=== PATIENT | female | born 1940 | race Caucasian/White ===

== ENCOUNTER → 2018-01-27 | Outpatient (CLI) | payer OTHER, BC ==
[~2018-01-27] MED LIST: ASPI325T39 PO; CALC500C3 PO; CLOTCRE33 TOP; INSU1INJ SC; LISI-461 PO; METO25TA56 PO; MULT-506 PO; PRLSR20 PO; SIMV20TA2 PO
--- NOTE | 2018-01-27 13:01 | DIAGNOSTIC IMAGING REPORT ---
CHEST 2 VIEWS ROUTINE CLINICAL HISTORY: Preoperative chest COMPARISON STUDY: 02/01/2008 FINDINGS: The cardiac and mediastinal contours are normal. There is no evidence of focal pulmonary consolidation. There is no evidence of failure. No pleural effusions are visualized.[ IMPRESSION: No active disease in the chest. Electronically signed by: Mark Draper M.D. 01/27/2018 1:00 PM Dictated Date/Time: 01/27/2018 12:59 PM
[2018-01-27 14:51] LABS: BASO % 0.6 %; BASO ABS # 0.04 K/uL (0-0.2); EOS % 3.4 %; EOS ABS # 0.23 K/uL (0-0.5); HEMATOCRIT 33.8 % (37-47); HEMOGLOBIN 11.1 g/dL (12.0-16.0); IG# 0.02 K/uL (0.00-0.02); LYMPH % 27.8 %; MEAN CELL VOLUME 95.8 fL (80-100); MEAN CORPUSCULAR HEMOGLOBIN 31.4 pg (25-34); MEAN CORPUSCULAR HGB CONC 32.8 g/dl (32-36); MEAN PLATELET VOLUME 10.7 fL (7.4-10.4); MONO % 7.5 %; MONO ABS # 0.51 K/uL (0.11-0.59); NEUT % 60.4 %; NEUT ABS # 4.14 K/uL (1.4-6.5); PLATELET COUNT 193 K/uL (130-400); RED CELL DISTRIBUTION WIDTH CV 13.8 % (11.5-14.5); RED CELL DISTRIBUTION WIDTH SD 47.4 fL (36.4-46.3); WHITE BLOOD COUNT 6.84 K/uL (4.8-10.8)
[2018-01-27 14:59] LABS: BLOOD UREA NITROGEN 51 mg/dl (7-18); CALCIUM 8.1 mg/dl (8.5-10.1); CARBON DIOXIDE 20 mmol/L (21-32); GLUCOSE 250 mg/dl (70-99); POTASSIUM 5.3 mmol/L (3.5-5.1); PTT PATIENT 26.2 SECONDS (21.0-31.0); SODIUM 136 mmol/L (136-145)
== END | disposition home or self-care (01) ==
LOC: C.CPL 11:48
PROVIDERS: ATTEND Surgery Vascular Surgery
DX: Z01.818 Encounter for other preprocedural examination (principal)

== ENCOUNTER 2019-02-12 14:39 | Inpatient (IN) ==
[2019-02-12 15:43] LABS: Mean Corpuscular Hgb Conc 33.4 g/dL (32-36)
--- NOTE | 2019-02-12 15:47 | XRay Report ---
XR chest 1V portable CLINICAL HISTORY: Chest pain status post trauma COMPARISON STUDY: 05/30/2018 FINDINGS: The heart is enlarged. No pneumothorax is visualized. There are right lower lobe airspace o pacities suspicious for pneumonia or pulmonary contusion given the history of trauma. The study is so mewhat limited from a technical standpoint due to the patient's large body habitus. There is mild fred tral vascular prominence without evidence of overt failure. There are old posterior back changes invo lving the left humerus.[ IMPRESSION: 1. Cardiomegaly with mild vascular prominence 2. No pneumothorax identified 3. Right lower lobe airspace opacities, pneumonia versus pulmonary contusion. Electronically signed by: Mark Draper M.D. 02/12/2019 3:45 PM
[2019-02-12 15:52] LABS: Hematocrit (blood only) 41.9 % (37-47); Mean Corpuscular Volume 91.1 fL (80-100); RDW Coefficient of Variation 22.2 % (11.5-14.5); RDW Standard Deviation 73.4 fL (36.4-46.3); White Blood Count 7.64 K/uL (4.8-10.8)
[2019-02-12 16:37] LABS: Mean Platelet Volume 11.3 fL (7.4-10.4); Platelet Count 131 K/uL (130-400)
[2019-02-12 16:39] LABS: Anisocytosis Present; Basophils # (auto) 0.03 K/uL (0-0.2); Basophils % (auto) 0.4 %; Eosinophils # (auto) 0.03 K/uL (0-0.5); Eosinophils % (auto) 0.4 %; Immature Granulocytes # (auto) 0.02 K/uL (0.00-0.02); Immature Granulocytes % (auto) 0.3 %; Lymphocytes # (auto) 0.93 K/uL (1.2-3.4); Lymphocytes % (auto) 12.2 %; Monocytes % (auto) 9.2 %; Neutrophils # (auto) 5.93 K/uL (1.4-6.5); Neutrophils % (auto) 77.5 %; Platelet Estimate Normal (Normal); Polychromasia 1+
--- NOTE | 2019-02-12 16:52 | CT Scan Report ---
CT SCAN OF THE BRAIN WITHOUT IV CONTRAST CLINICAL HISTORY: Falls. COMPARISON STUDY: No priors. TECHNIQUE: Unenhanced axial CT scan of the brain is performed from the vertex to the skull base. A do se lowering technique was utilized adhering to the principles of ALARA. CT DOSE: 788.63 mGycm FINDINGS: Brain parenchyma: There are age-related involutional changes noting moderate subcortical and periven tricular microangiopathic change. There is no hemorrhage, mass effect, or evidence of acute territori al ischemia by CT criteria. There is a small chronic lacunar infarct in the left thalamus. Daniel-white matter differentiation is preserved. No extra-axial fluid collection is seen. Ventricles, sulci, cisterns: Prominent secondary to involutional change. Intracranial vasculature: There is atherosclerotic calcification of the cavernous carotid arteries. Calvarium: The skeletal structures are osteopenic. There is no depressed calvarial fracture. Sinuses and mastoids: Trace mucosal thickening is noted in the sphenoid sinuses. The remaining visual ized paranasal sinuses are clear. The mastoid air cells are well pneumatized. Orbits: The bony orbits are grossly intact. There are bilateral ocular lens implants. IMPRESSION: There is no hemorrhage, mass effect, or evidence of acute territorial ischemia by CT henry nicholson. Electronically signed by: Lenni Cohen M.D. 02/12/2019 4:50 PM
[2019-02-12 17:23] LABS: Albumin Level 3.6 gm/dl (3.4-5.0); BUN Creatinine Ratio 20.7 (10-20); Calcium 9.4 mg/dl (8.5-10.1); Creatinine Clr Calc Pharmacy 17.8 ml/min; Est GFR (African American) 18.2; Est GFR (Non-African American) 15.7; Magnesium 2.9 mg/dl (1.8-2.4); Potassium 3.7 mmol/L (3.5-5.1)
[2019-02-12 17:33] LABS: Albumin Globulin Ratio 0.9 (0.9-2); Bilirubin,Total 3.1 mg/dl (0.2-1); Globulin 3.9 gm/dl (2.5-4.0); Total Protein 7.5 gm/dl (6.4-8.2); Troponin I 0.053 ng/ml (0-0.045)
[2019-02-12] MEDS ORDERED: cefTRIAXone SODIUM 2,000 MG/70 ML BAG IV STA (17:37)
--- NOTE | 2019-02-12 17:50 | Emergency Department Note ---
Entered by Dorota Rock acting as a scribe for Tiera Love DO History of Present Illness General Chief complaint: Fall Time Seen by Provider: 02/12/19 15:26 History of Present Illness Provider complaint: fall Onset (ago): hour(s) 1 Severity: similar to prior episodes (of a fall yesterday and the day before) Pain Consistency: + other (episode) Quality: + other (fall) Associated symptoms: + denies other symptoms (LOC, dizziness, pain, urine changes, bowel changes, recent medicine changes, head trauma) and + other (legs weak and gave out, landed on buttocks, uses 2 canes to walk and was using them when she fell, normal blood sugars, freezing, lower back back that is exacerbated with movement and twisting); no fever/chills The patient is an 78 year old female who presents to the ED with complaints of an episode of a fall that occurred 1 hour ago. The patient states that she was walking into her kitchen when her legs felt weak and gave out. The patient states that she had similar episodes of a fall yesterday and the day before. The patient states that she landed on her buttocks following each fall. No head injury. The patient states that the falls from the past few days have been solely because of leg weakness and she denies dizziness and LOC. Denies any other trauma or pain since the falls. States she would call her son and he would come pick her up if she could not get up on her own. The patient states that she uses 2 canes to walk and was using them when she fell. Patient does live alone. The patient states that her blood sugar levels have been okay and have ranged in the 80s and 90s. When reminded that her blood sugar was very low when EMS checked her out today, she believes this could have contributed to her falls and weakness. She is complaining of being very cold currently. The patient states that she also has lower back pain that is exacerbated with movement and twisting. The patient denies fever, pain, urine changes, bowel changes, recent medicine changes, and head trauma. Patient states she has bad kidneys and sees Dr. Stewart. States does not go to dialysis but that her kidney doctor had a fistula put in her left arm for when she eventually does need to start dialysis. Home Medications Home Medications Medication Instructions Recorded Confirmed Type calcium carbonate 600 mg PO DIRECTED PRN 05/30/18 02/12/19 History clotrimazole-betamethasone 1 applic TOPICAL BID PRN 05/30/18 02/12/19 History multivitamin 1 tab PO QAM 05/30/18 02/12/19 History omeprazole 20 mg PO QAM PRN 05/30/18 02/12/19 History simvastatin 20 mg PO PM 05/30/18 02/12/19 History Humulin 70/30 U-100 Insulin 20 unit SUBCUT QPM #0 ml 06/04/18 02/12/19 Rx torsemide 20 mg PO QAM 06/26/18 02/12/19 History Humulin 70/30 U-100 Insulin 25 unit SUBCUT QAM 02/12/19 02/12/19 History benzonatate 100 mg PO TID PRN 02/12/19 02/12/19 History levothyroxine 50 mcg PO DAILYBB 02/12/19 02/12/19 History metoprolol succinate 25 mg PO QAM 02/12/19 02/12/19 History Allergies Allergy/AdvReac Type Severity Reaction Status Date / Time Aminoglycosides Allergy Intermediate Rash Verified 02/12/19 16:08 neomycin Allergy Intermediate Rash Verified 02/12/19 16:08 polymyxin B Allergy Intermediate Rash Verified 02/12/19 16:08 iodine Allergy Unknown Unknown Verified 02/12/19 16:08 promethazine Allergy Unknown Unknown Verified 02/12/19 16:08 aminophylline Allergy Unknown Verified 02/12/19 16:08 fish derived Allergy Anaphylaxis Verified 02/12/19 16:08 nystatin Allergy Unknown Verified 02/12/19 16:08 adhesive AdvReac Mild Tape - Verified 02/12/19 16:08 bumps alcohol AdvReac BUMPS ON Verified 02/12/19 16:08 SKIN W/ ETOH WIPES Past Med/Surg History Medical History Hyperlipidemia (Chronic) Peripheral neuropathy (Chronic) GERD (gastroesophageal reflux disease) (Chronic) controlled Osteoarthritis (Chronic) Chronic back pain (Chronic) Anemia (Chronic) LBBB (left bundle branch block) (Chronic) chronic Breast cancer (Resolved) 2010 radiation. +chemo per PCP records Morbid obesity (Chronic) Hypothyroidism (Chronic) Diastolic CHF (Chronic) Non-ischemic cardiomyopathy (Chronic) Diabetes mellitus type 2, insulin dependent (Chronic) LBBB (left bundle branch block) (Chronic) CKD (chronic kidney disease) stage 4, GFR 15-29 ml/min (Chronic) Surgical History AVF (arteriovenous fistula) (Chronic) History of cataract surgery (Chronic) History of appendectomy (Chronic) Hx of lumpectomy (Chronic) Right breast Family History Father Diabetes Social History Preferred Language: Niuean Communication Ability: Effective Visual Impairment: No Limitations Hearing Ability: Hard of Hearing Clinical Faculty Required: No Beliefs That Will Affect Care: None marital status: Current Living Situation: Alone Other Information That Helps Us Care for You: No Feels Safe at Home: Yes Safety Concerns: Feels Safe At This Time Smoking Status: Never smoker Second Hand Exposure: No ; Hx Alcohol Use: No Hx Substance Use: No Review of Systems See HPI for pertinent positives & negatives. and A total of 10 systems reviewed and were otherwise negative Physical Exam Vital Signs Vital Signs - 24 hr 02/12/19 14:45 02/12/19 16:58 02/12/19 18:17 Temperature 36.5 C Temperature Source Oral Sepsis Recent Fever Within 48 Hours No Sepsis New/Unexplained Change in Mental Status No Sepsis Action Taken by Nursing No Action Required Pulse Rate 79 Pulse Rate [Left Finger] 77 80 Pulse Rhythm [Left Finger] Regular Pulse Strength [Left Finger] Normal Respiratory Rate 18 20 18 Respiratory Effort / Characteristics Non-Labored Spontaneous Respiratory Depth Normal Respiratory Pattern Regular Blood Pressure 150/71 H Blood Pressure [Right Arm] 145/74 H 155/85 H Blood Pressure Mean 97 Blood Pressure Mean [Right Arm] 97 108 Blood Pressure Position [Right Arm] Lying Pulse Oximetry 97 95 94 Oxygen Delivery Method Room Air Room Air Room Air GENERAL: alert, well appearing, well nourished, no distress, non-toxic, and hard of hearing. EYE EXAM: normal conjunctiva, PERRL and EOM's grossly intact OROPHARYNX: no exudate, no erythema, lips, buccal mucosa, and tongue normal and mucous membranes are moist NECK: supple, no nuchal rigidity, no adenopathy, non-tender LUNGS: Clear to auscultation. Normal chest wall mechanics, no w/r/r HEART: no murmurs, S1 normal and S2 normal ABDOMEN: abdomen soft, non-tender, normo-active bowel sounds, no masses, no rebound or guarding. BACK: Back is symmetrical on inspection and there is no deformity, no midline tenderness, no CVA tenderness. SKIN: no rashes and no bruising UPPER EXTREMITIES: Fistula present in proximal left upper extremity, otherwise upper extremities are grossly normal. Normal distal pulses bilaterally. Mild ecchymosis noted to the proximal right upper extremity, which patient states is from her son helping to lift her up. LOWER EXTREMITIES: 1+ lower extremity edema bilaterally. No evidence of trauma. Full range of motion. NEURO EXAM: Normal sensorium, cranial nerves II-XII grossly intact, normal speech, no gross weakness of arms, no gross weakness of legs. Course 1529: Past medical records reviewed. The patient was evaluated in room C4. A complete history and physical exam was performed. 4: I reevaluated the patient and she appears to be comfortable. I updated her on the test results and plan for admission. The patient verbally agrees and understands. Vital signs stable. Patient did tolerate p.o. 1851: I discussed the patient's case with ARY San. She will evaluate the patient for further management. Consultations Consultation #1: I discussed the patient's case with ARY San. She will evaluate the patient for further management. Time: 18:51 Administered Medications Acetaminophen (Tylenol) 650 mg PO Q4H PRN PRN Reason: pain/fever Stop: 03/14/19 20:45 Last Admin: 02/12/19 21:15 Dose: 650 mg Documented by: [id number] Discontinued Medications Azithromycin (Zithromax) 500 mg PO NOW ONE Stop: 02/12/19 17:53 Last Admin: 02/12/19 18:12 Dose: 500 mg Documented by: [id number] Ceftriaxone Sodium (Rocephin) 2,000 mg in 70 mls @ 140 mls/hr IV NOW STA Stop: 02/12/19 18:06 Last Infusion: 02/12/19 19:12 Dose: 0 mls/hr Documented by: [id number] Admin: 02/12/19 18:12 Dose: 140 mls/hr Documented by: [id number] Medical Decision Making Differential Diagnosis Differential diagnosis: Etiologies such as fracture, cervical/vertebral injury, dislocation, intra- abdominal process, pneumothorax, intrathoracic trauma, intracranial injury, soft tissue injury, neurologic process, as well as other traumatic pathologies were entertained. Medical Records Attestation: I reviewed the patient's medical records. Home Medications Current Medication List: was personally reviewed by me Laboratory Data Attestation: I reviewed the patient's lab results. Result diagrams: 02/12/19 15:03 02/12/19 15:03 Lab Results 02/12/19 02/12/19 02/12/19 Range/Units 14:46 15:03 15:03 WBC 7.64 (4.8-10.8) K/uL RBC 4.60 (4.2-5.4) M/uL Hgb 14.0 (12.0-16.0) g/dL Hct 41.9 (37-47) % MCV 91.1 (80-100) fL MCH 30.4 (25-34) pg MCHC 33.4 (32-36) g/dL RDW Std Deviation 73.4 H (36.4-46.3) fL RDW Coeff of Archana 22.2 H (11.5-14.5) % Plt Count 131 (130-400) K/uL MPV 11.3 H (7.4-10.4) fL Immature Gran % (Auto) 0.3 % Neut % (Auto) 77.5 % Lymph % (Auto) 12.2 % Richardson % (Auto) 9.2 % Eos % (Auto) 0.4 % Baso % (Auto) 0.4 % Immature Gran # (Auto) 0.02 (0.00-0.02) K/uL Neut # (Auto) 5.93 (1.4-6.5) K/uL Lymph # (Auto) 0.93 L (1.2-3.4) K/uL Richardson # (Auto) 0.70 H (0.11-0.59) K/uL Eos # (Auto) 0.03 (0-0.5) K/uL Baso # (Auto) 0.03 (0-0.2) K/uL Platelet Estimate Normal (Normal) Polychromasia 1+ Anisocytosis Present Sodium 140 (136-145) mmol/L Potassium 3.7 (3.5-5.1) mmol/L Chloride 102 (98-107) mmol/L Carbon Dioxide 29 (21-32) mmol/L Anion Gap 9.0 (3-11) BUN 57 H (7-18) mg/dl Creatinine 2.74 H (0.6-1.2) mg/dl Est Cr Clr Drug Dosing 17.8 ml/min Est GFR ( Amer) 18.2 Est GFR (Non-Af Amer) 15.7 BUN/Creatinine Ratio 20.7 H (10-20) Glucose 53 L* (70-99) mg/dl POC Glucose 43 L* (70-99) Calcium 9.4 (8.5-10.1) mg/dl Magnesium 2.9 H (1.8-2.4) mg/dl Total Bilirubin 3.1 H (0.2-1) mg/dl AST 61 H (15-37) U/L ALT 41 (12-78) U/L Alkaline Phosphatase 182 H (45-117) U/L Total Creatine Kinase (26-192) U/L Troponin I 0.053 H* (0-0.045) ng/ml Total Protein 7.5 (6.4-8.2) gm/dl Albumin 3.6 (3.4-5.0) gm/dl Globulin 3.9 (2.5-4.0) gm/dl Albumin/Globulin Ratio 0.9 (0.9-2) Lipase 47 L (73-393) U/L Procalcitonin (0-0.5) ng/ml TSH 18.200 H (0.300-4.500) uIu/ml 02/12/19 02/12/19 02/12/19 Range/Units 15:03 15:03 15:38 WBC (4.8-10.8) K/uL RBC (4.2-5.4) M/uL Hgb (12.0-16.0) g/dL Hct (37-47) % MCV (80-100) fL MCH (25-34) pg MCHC (32-36) g/dL RDW Std Deviation (36.4-46.3) fL RDW Coeff of Archana (11.5-14.5) % Plt Count (130-400) K/uL MPV (7.4-10.4) fL Immature Gran % (Auto) % Neut % (Auto) % Lymph % (Auto) % Richardson % (Auto) % Eos % (Auto) % Baso % (Auto) % Immature Gran # (Auto) (0.00-0.02) K/uL Neut # (Auto) (1.4-6.5) K/uL Lymph # (Auto) (1.2-3.4) K/uL Richardson # (Auto) (0.11-0.59) K/uL Eos # (Auto) (0-0.5) K/uL Baso # (Auto) (0-0.2) K/uL Platelet Estimate (Normal) Polychromasia Anisocytosis Sodium (136-145) mmol/L Potassium (3.5-5.1) mmol/L Chloride (98-107) mmol/L Carbon Dioxide (21-32) mmol/L Anion Gap (3-11) BUN (7-18) mg/dl Creatinine (0.6-1.2) mg/dl Est Cr Clr Drug Dosing ml/min Est GFR ( Amer) Est GFR (Non-Af Amer) BUN/Creatinine Ratio (10-20) Glucose (70-99) mg/dl POC Glucose (70-99) Calcium (8.5-10.1) mg/dl Magnesium (1.8-2.4) mg/dl Total Bilirubin (0.2-1) mg/dl AST (15-37) U/L ALT (12-78) U/L Alkaline Phosphatase (45-117) U/L Total Creatine Kinase 305 H (26-192) U/L Troponin I Cancelled (0-0.045) ng/ml Total Protein (6.4-8.2) gm/dl Albumin (3.4-5.0) gm/dl Globulin (2.5-4.0) gm/dl Albumin/Globulin Ratio (0.9-2) Lipase (73-393) U/L Procalcitonin 0.15 (0-0.5) ng/ml TSH Cancelled (0.300-4.500) uIu/ml 02/12/19 Range/Units 17:03 WBC (4.8-10.8) K/uL RBC (4.2-5.4) M/uL Hgb (12.0-16.0) g/dL Hct (37-47) % MCV (80-100) fL MCH (25-34) pg MCHC (32-36) g/dL RDW Std Deviation (36.4-46.3) fL RDW Coeff of Archana (11.5-14.5) % Plt Count (130-400) K/uL MPV (7.4-10.4) fL Immature Gran % (Auto) % Neut % (Auto) % Lymph % (Auto) % Richardson % (Auto) % Eos % (Auto) % Baso % (Auto) % Immature Gran # (Auto) (0.00-0.02) K/uL Neut # (Auto) (1.4-6.5) K/uL Lymph # (Auto) (1.2-3.4) K/uL Richardson # (Auto) (0.11-0.59) K/uL Eos # (Auto) (0-0.5) K/uL Baso # (Auto) (0-0.2) K/uL Platelet Estimate (Normal) Polychromasia Anisocytosis Sodium (136-145) mmol/L Potassium (3.5-5.1) mmol/L Chloride (98-107) mmol/L Carbon Dioxide (21-32) mmol/L Anion Gap (3-11) BUN (7-18) mg/dl Creatinine (0.6-1.2) mg/dl Est Cr Clr Drug Dosing ml/min Est GFR ( Amer) Est GFR (Non-Af Amer) BUN/Creatinine Ratio (10-20) Glucose (70-99) mg/dl POC Glucose 61 L* (70-99) Calcium (8.5-10.1) mg/dl Magnesium (1.8-2.4) mg/dl Total Bilirubin (0.2-1) mg/dl AST (15-37) U/L ALT (12-78) U/L Alkaline Phosphatase (45-117) U/L Total Creatine Kinase (26-192) U/L Troponin I (0-0.045) ng/ml Total Protein (6.4-8.2) gm/dl Albumin (3.4-5.0) gm/dl Globulin (2.5-4.0) gm/dl Albumin/Globulin Ratio (0.9-2) Lipase (73-393) U/L Procalcitonin (0-0.5) ng/ml TSH (0.300-4.500) uIu/ml Imaging Data Radiologist's Impression: Radiology results as stated below per my review and the radiologist's interpretation: CT SCAN OF THE BRAIN WITHOUT IV CONTRAST CLINICAL HISTORY: Falls. COMPARISON STUDY: No priors. TECHNIQUE: Unenhanced axial CT scan of the brain is performed from the vertex to the skull base. A dose lowering technique was utilized adhering to the principles of ALARA. CT DOSE: 788.63 mGycm FINDINGS: Brain parenchyma: There are age-related involutional changes noting moderate subcortical and periventricular microangiopathic change. There is no hemorrhage, mass effect, or evidence of acute territorial ischemia by CT criteria. There is a small chronic lacunar infarct in the left thalamus. Daniel-white matter differentiation is preserved. No extra-axial fluid collection is seen. Ventricles, sulci, cisterns: Prominent secondary to involutional change. Intracranial vasculature: There is atherosclerotic calcification of the cavernous carotid arteries. Calvarium: The skeletal structures are osteopenic. There is no depressed calvarial fracture. Sinuses and mastoids: Trace mucosal thickening is noted in the sphenoid sinuses. The remaining visualized paranasal sinuses are clear. The mastoid air cells are well pneumatized. Orbits: The bony orbits are grossly intact. There are bilateral ocular lens implants. IMPRESSION: There is no hemorrhage, mass effect, or evidence of acute territorial ischemia by CT criteria. Electronically signed by: Lenin Cohen M.D. 02/12/2019 4:50 PM XR chest 1V portable CLINICAL HISTORY: Chest pain status post trauma COMPARISON STUDY: 05/30/2018 FINDINGS: The heart is enlarged. No pneumothorax is visualized. There are right lower lobe airspace opacities suspicious for pneumonia or pulmonary contusion given the history of trauma. The study is somewhat limited from a technical standpoint due to the patient's large body habitus. There is mild central vascular prominence without evidence of overt failure. There are old posterior back changes involving the left humerus.[ IMPRESSION: 1. Cardiomegaly with mild vascular prominence 2. No pneumothorax identified 3. Right lower lobe airspace opacities, pneumonia versus pulmonary contusion. Electronically signed by: Mark Draper M.D. 02/12/2019 3:45 PM ECG Data Attestation: I personally reviewed and interpreted this ECG as follows: Indication: other (electrolyte abnormality) Rate (beats per minute): 77 Rhythm: normal sinus Findings: + other (right axis deviation, poor quality tracing) and + RBBB; no ST elevation Blood Pressure Blood Pressure Findings: Elevated blood pressure Blood Pressure Disposition: further management by hospitalist ESPERANZA Narrative Curb 65 score moderate risk Patient presents with concerning story for 3 successive days of weakness and falls. It is unclear if hypoglycemia which seems to been the trigger today was the etiology previous 2 days as well. Concern given that patient lives alone and already uses to ambulatory assist devices. No evidence of trauma patient had no complaints of pain. I would low suspicion for occult traumatic injury. Patient's other labs showed an elevated troponin and BNP which are likely chronic given her chronic kidney disease. Patient had no complaints of chest pain and normal EKG. Chest x-ray did not reveal acute pulmonary edema. Patient's creatinine today is improved compared to the last several and consistent with her prior baseline. CT of the patient's head was reassuring, chest x-ray read by radiology showing possible pneumonia. Patient does admit to recent cough, denies fevers or chills, nasal congestion or sore throat. Patient does have mild tachypnea with conversation. Patient denies any prior pulmonary history but states she has had pneumonia twice previously. No recent admission to suggest healthcare associated pneumonia. Patient started on Rocephin and azithromycin as a precaution. Patient hemodynamically stable, not requiring oxygen. Patient's Accu-Chek initially low, however did not improve following oral intake. Patient continued to subjectively states she was cold, likely this is due to prior hypoglycemia. I do not suspect chills or rigors more suggestive of evolving bacteremia/sepsis. Case discussed with hospitalist team for additional evaluation and management. Impression & Plan Hypoglycemia, Weakness, Fall, Pneumonia Discharge Plan Visit Data *Final* Discharge Date/Time: 02/12/19 19:54 Chief Complaint: Fall ED Provider: Tiera Love Discharge Problem: Hypoglycemia, Weakness, Fall, Pneumonia Patient Disposition: Admitted As Inpatient Condition: Fair Discharge Instructions Interventions: ED Discharge Assessment Last Done: 02/12/19 19:54 The scribe's documentation has been prepared under my direction and personally reviewed by me in its entirety. I confirm that the note above accurately reflects all work, treatment, procedures, and medical decision making performed by me.
[2019-02-12] MEDS ORDERED: AZITHROMYCIN 250 MG TAB PO ONE (17:52)
--- NOTE | 2019-02-12 19:27 | History & Physical Report ---
Date of Service February 12, 2019 Assessment & Plan (1) Hypoglycemia: (2) Frequent falls: -admit to med/surg -patient presenting from home with 3 falls over the past 3 days -In the ED, found to be significantly hypoglycemic which improved after snacks given in the ED -Hypoglycemia likely secondary to poor p.o. intake in combination with continued use of insulin at home -Hold insulin, check BSG every 4 hours -Head CT negative for acute findings -Does not appear to have any other injuries -PT/OT, case management evaluations (3) Abnormal chest xray: -CXR shows right lower lobe opacity -Does not seem to be pneumonia, afebrile without leukocytosis and no significant pulmonary symptoms -Received IV ceftriaxone and azithromycin in the ED -Will check procalcitonin and resume antibiotics if positive (4) Diabetes mellitus type 2, insulin dependent: -Hgb A1c 7.4 12/2018 -Holding insulin as above (5) Hypothyroidism: -TSH as an outpatient was 44 on 01/23 and patient was started levothyroxine at that time -TSH was checked in the ED today and found to be 18.2 -would not adjust levothyroxine at this time given it has been less than 6 weeks since initiation (6) Diastolic CHF: (7) Non-ischemic cardiomyopathy: -Appears euvolemic -Continue home dose of torsemide (8) CKD (chronic kidney disease) stage 4, GFR 15-29 ml/min: -Renal functions at baseline -Continue monitor -Does have fistula placed for potential dialysis (9) Hyperlipidemia: -Continue statin (10) DVT prophylaxis: -SQ heparin History of Present Illness Chief Complaint: Falls Primary Care Provider: Hima Tanner DO 78 year old female who presents to the ED for frequent falls. Patient reports she has had 3 falls over the past 3 days. She has laid on the floor for up to 14 hours waiting for her son to come check on her. Today, patient's son called EMS for the patient to be evaluated. Patient reports that when she falls, her knees give out from under her. She denies any associated lightheadedness, dizziness, syncope, or chest pain. With these falls and being on the floor, she has been unable to eat and drink much. She did decrease her insulin doses at home. She has had a couple episodes of vomiting. No hematemesis or coffee ground emesis. She denies abdominal pain. She has chronic loose stools which are unchanged from baseline. She also has a chronic cough for the past several months which is unchanged as well. Cough is mostly non productive. She sometimes has exertional shortness of breath which is unchanged from baseline as well. No fevers or chills. She denies urinary symptoms. In the ED, patient is found to be hypoglycemic at 43, this improved after some snacks were given. CXR also questions a RLL pneumonia. Patient is afebrile, no leukocytosis. She was given IV ceftriaxone and IV azithromycin. Allergies Allergy/AdvReac Type Severity Reaction Status Date / Time Aminoglycosides Allergy Intermediate Rash Verified 02/12/19 16:08 neomycin Allergy Intermediate Rash Verified 02/12/19 16:08 polymyxin B Allergy Intermediate Rash Verified 02/12/19 16:08 iodine Allergy Unknown Unknown Verified 02/12/19 16:08 promethazine Allergy Unknown Unknown Verified 02/12/19 16:08 aminophylline Allergy Unknown Verified 02/12/19 16:08 fish derived Allergy Anaphylaxis Verified 02/12/19 16:08 nystatin Allergy Unknown Verified 02/12/19 16:08 adhesive AdvReac Mild Tape - Verified 02/12/19 16:08 bumps alcohol AdvReac BUMPS ON Verified 02/12/19 16:08 SKIN W/ ETOH WIPES Home Medications Home Medications Medication Instructions Recorded Confirmed Type calcium carbonate 600 mg PO DIRECTED PRN 05/30/18 02/12/19 History clotrimazole-betamethasone 1 applic TOPICAL BID PRN 05/30/18 02/12/19 History multivitamin 1 tab PO QAM 05/30/18 02/12/19 History omeprazole 20 mg PO QAM PRN 05/30/18 02/12/19 History simvastatin 20 mg PO PM 05/30/18 02/12/19 History Humulin 70/30 U-100 Insulin 20 unit SUBCUT QPM #0 ml 06/04/18 02/12/19 Rx torsemide 20 mg PO QAM 06/26/18 02/12/19 History Humulin 70/30 U-100 Insulin 25 unit SUBCUT QAM 02/12/19 02/12/19 History benzonatate 100 mg PO TID PRN 02/12/19 02/12/19 History levothyroxine 50 mcg PO DAILYBB 02/12/19 02/12/19 History metoprolol succinate 25 mg PO QAM 02/12/19 02/12/19 History Past Med/Surg History Medical History Hyperlipidemia (Chronic) Peripheral neuropathy (Chronic) GERD (gastroesophageal reflux disease) (Chronic) controlled Osteoarthritis (Chronic) Chronic back pain (Chronic) Anemia (Chronic) LBBB (left bundle branch block) (Chronic) chronic Breast cancer (Resolved) 2010 radiation. +chemo per PCP records Morbid obesity (Chronic) Hypothyroidism (Chronic) Diastolic CHF (Chronic) Non-ischemic cardiomyopathy (Chronic) Diabetes mellitus type 2, insulin dependent (Chronic) LBBB (left bundle branch block) (Chronic) CKD (chronic kidney disease) stage 4, GFR 15-29 ml/min (Chronic) Surgical History AVF (arteriovenous fistula) (Chronic) History of cataract surgery (Chronic) History of appendectomy (Chronic) Hx of lumpectomy (Chronic) Right breast Family History Father Diabetes Social History Preferred Language: Slovak Communication Ability: Effective Visual Impairment: No Limitations Hearing Ability: Hard of Hearing Animal Tech Required: No Beliefs That Will Affect Care: None marital status: Current Living Situation: Alone Other Information That Helps Us Care for You: No Feels Safe at Home: Yes Safety Concerns: Feels Safe At This Time Smoking Status: Never smoker Second Hand Exposure: No ; Hx Alcohol Use: No Hx Substance Use: No Review of Systems Review of Systems: ROS per HPI, all other systems reviewed and negative Physical Exam Physical Exam: please refer to Dr. Gracia's addendum for physical exam Results & Data Vital Signs (Past 12 Hours) Vital Signs Temp Pulse Pulse Resp BP BP Pulse Ox 02/12/19 18:17 80 18 155/85 H 94 02/12/19 16:58 77 20 145/74 H 95 02/12/19 14:45 36.5 C 79 18 150/71 H 97 Laboratory Results Short CBC 02/12/19 Range/Units 15:03 WBC 7.64 (4.8-10.8) K/uL Hgb 14.0 (12.0-16.0) g/dL Hct 41.9 (37-47) % Plt Count 131 (130-400) K/uL BMP 02/12/19 15:03 Sodium 140 Potassium 3.7 Chloride 102 Carbon Dioxide 29 BUN 57 H Creatinine 2.74 H Glucose 53 L* Calcium 9.4 Cardiac Enzymes 02/12/19 02/12/19 Range/Units 15:03 15:03 Troponin I 0.053 H* Cancelled (0-0.045) ng/ml Liver Function 02/12/19 Range/Units 15:03 Total Bilirubin 3.1 H (0.2-1) mg/dl AST 61 H (15-37) U/L ALT 41 (12-78) U/L Alkaline Phosphatase 182 H (45-117) U/L Albumin 3.6 (3.4-5.0) gm/dl Diagnostic Findings CXR IMPRESSION: 1. Cardiomegaly with mild vascular prominence 2. No pneumothorax identified 3. Right lower lobe airspace opacities, pneumonia versus pulmonary contusion. HEAD CT IMPRESSION: There is no hemorrhage, mass effect, or evidence of acute territorial ischemia by CT criteria. Code Status & VTE Plan VTE Prophylaxis Plan VTE Prophylaxis will be ordered: Yes Supervising Physician Co-Signing Physician Notes Patient was evaluated on 02/12/2019. History obtained with Melissa MCALLISTER. Physical exam performed by me. Patient is an 78 year old woman with history of DM2, Hypothyroidism, chronic systolic heart failure (EF 35-40% as of 05/2018), CKD 4 who presented to the hospital after multiple falls. Falls appear to be mechanical, not associated with dizziness, palpitations,loss of consciousness or seizure like activity. She reported that her knee gave out and she could not get up. Has ambulatory dysfunction at baseline, uses aides such as walker and cane. One of the falls had her on the ground for a couple of hours before son arrrived as patient lives with son who works, hence she is alone by herself most of the day. Also reported difficulty having reaching the food items sometimes. Has had poor feeding for the past couple of days but has continued to take her insulin regimen. Requires some assistance with some ADLs. Other history as detailed above. On exam, she was unkempt, obese, conversation carried out in high tones due to chronic hearing deficit and had some bruises on her knees. She was not pale, anicteric, EOMI and PERRL. Respiratory: Normal respiratory effort, no respiratory distress, lungs clear to auscultation, Cardiovascular: Pulse is RRR. normal S1 and S2; no murmurs no pedal edema Chest (Breasts): Chest: normal inspection of chest Gastrointestinal (Abdomen): Abdomen is soft, non-tender to palpation, no guarding, no palpable hepatosplenomegaly, normal bowel sounds Musculoskeletal: Power is about 4/5 in all extremities Skin: Bruises on knees. Difficulty turning patient to assess for pressure sores due to body habitus Neurologic: Alert and oriented x 3, No focal weakness, sensation grossly intact Psychiatric: Alert and oriented x 3, euthymic affect Lymphatic: No cervical lymphadenopathy Patient was hypoglycemic with a blood glucose of 43 on admission.CXR did show RLL opacity. CT head were unremarkable . Patient had mechanical fall likely due to poor oral intake with hypoglycemia with insulin use. Will hold all insulin for now until hypoglycemia resolves. Continue dextrose, po intake and regular glucose monitoring. Get PT/OT eval for management of ambulatory dysfunction. Due to patient's inability to care for herself at home, i discussed possible of placement. Patient reports that her son takes care of her well but not always available due to work. She will ask him to come to discuss with the team about that. Case management consult for this and other resources patient will need for optimal management. CXR showed RLL opacity. No reported fevers,chills. Cough is chronic and unchanged. No leukocytosis. Will monitor off antibiotics for now and repeat CXR For hypothyroidism: Was recently started on levothyroxine for elevated TSH. TSH still elevated but improving from lab 3 weeks ago. Will not adjust dose for now. Has chronic systolic heart failure: Continue diuretics, heart healthy low salt diet
[2019-02-12] MEDS ORDERED: ACETAMINOPHEN 325 MG TAB PO PRN (20:46)
[2019-02-12] MEDS: DEXTROSE 5% 500 ML IV SCH (21:54)
[2019-02-12] MEDS: SIMVASTATIN 20 MG TAB PO SCH (22:06)
[2019-02-12] MEDS: HEPARIN SOD 5,000 UNIT/0.5 ML VIAL SQ SCH (22:08)
[2019-02-13] MEDS: CARBOHYDRATES FOR HYPOGLYCEMIA PO PRN ×3 (00:05→00:43)
[2019-02-13] MEDS ORDERED: GLUCOSE 40% GEL 15 GM TUBE PO PRN ×2 (01:15→11:44)
[2019-02-13] MEDS ORDERED: GLUCAGON FOR INJ 1 MG VIAL IM PRN (01:15)
[2019-02-13] MEDS ORDERED: GLUCOSE 10 TABS/TUBE PO PRN ×2 (01:15→11:44)
[2019-02-13] MEDS ORDERED: DEXTROSE 50% 50 ML SYRINGE IV PRN ×2 (01:15→11:44)
[2019-02-13] MEDS: HEPARIN SOD 5,000 UNIT/0.5 ML VIAL SQ SCH ×3 (05:43→21:44)
[2019-02-13] MEDS: LEVOTHYROXINE SODIUM 50 MCG TABLET PO SCH (05:44)
[2019-02-13] MEDS: DEXTROSE 5% 500 ML IV SCH (05:45)
[2019-02-13 07:01] LABS: Hematocrit (blood only) 38.4 % (37-47); Hemoglobin 12.2 g/dL (12.0-16.0); Mean Corpuscular Hgb Conc 31.8 g/dL (32-36); Mean Corpuscular Volume 91.6 fL (80-100); Mean Platelet Volume 10.2 fL (7.4-10.4); Platelet Count 151 K/uL (130-400); RDW Coefficient of Variation 22.2 % (11.5-14.5); RDW Standard Deviation 74.5 fL (36.4-46.3); Red Blood Count 4.19 M/uL (4.2-5.4); White Blood Count 5.39 K/uL (4.8-10.8)
[2019-02-13 07:31] LABS: Basophils # (auto) 0.04 K/uL (0-0.2); Basophils % (auto) 0.7 %; Eosinophils # (auto) 0.26 K/uL (0-0.5); Eosinophils % (auto) 4.6 %; Immature Granulocytes # (auto) 0.01 K/uL (0.00-0.02); Immature Granulocytes % (auto) 0.2 %; Lymphocytes # (auto) 1.15 K/uL (1.2-3.4); Lymphocytes % (auto) 20.4 %; Monocytes # (auto) 0.74 K/uL (0.11-0.59); Monocytes % (auto) 13.1 %; Neutrophils # (auto) 3.45 K/uL (1.4-6.5)
[2019-02-13 07:38] LABS: BUN Creatinine Ratio 22.2 (10-20); Creatinine Clr Calc Pharmacy 19.1 ml/min; Est GFR (Non-African American) 16.4; Potassium 3.9 mmol/L (3.5-5.1)
[2019-02-13] MEDS: MULTIVITAMIN TAB PO SCH (07:39)
[2019-02-13] MEDS: METOPROLOL SUCC 25MG EXT REL TAB PO SCH (07:39)
[2019-02-13 08:01] LABS: Anisocytosis Present; Echinocytes 1+; Polychromasia 1+
[2019-02-13] MEDS ORDERED: TORSEMIDE 10 MG TAB PO SCH (09:00)
--- NOTE | 2019-02-13 11:41 | Hospitalist Progress Note ---
Date of Service February 13, 2019 Assessment & Plan (1) Hypoglycemia: (2) Frequent falls: Obesity with BMI of 44.5 in an adult -This is an 78 year female who lives in a 2nd story home with recurrent falls; as per patient' s son and power of real estate attorney Anthony at bedside ([phone]), each time this happens the patient may be on the floor for several hours. The episode preceeding the hospital admission when the patient was on the floor for hours and no reported loss of consciousness -Head CT negative for acute findings -patient was found also to be hypoglycemic and hypoglycemia did not improve significantly with oral intake throughout 02/12/19 admission day and patient started on IV fluids with D5 -admitted to hospital to monitor closely of serum glucose and for evaluation of ambulation -patient may need to have discharge insulin dosing adjusted; as per patient's son, the patient has not been using her home glucose machine properly -physical and occupational therapy evaluations are pending; patient had expressed that she would not want to be placed in nursing facility or physical therapy facility but patient's son will help her with making decisions depending on patient's ambulatory status -minimally elevated creatinine kinase which downtrended with IV fluids, encourage oral hydration as tolerated (3) Abnormal chest xray: -admission CXR showed right lower lobe opacity -Does not seem to be pneumonia, afebrile without leukocytosis and no significant pulmonary symptoms; patient Received IV ceftriaxone and azithromycin in the ED; procalcitonin was normal and no further respiratory antibiotics indicated at this time (4) Diabetes mellitus type 2, insulin dependent: Type 2 diabetes mellitus with mcc use of insulin and complications of hypoglycemia -Hgb A1c 7.4 12/2018 -home dose insulin of twice a day Humalin 70/30 has not been started on the hospital stay to avoid hypoglycemia -patient was given D5 water on admission, D5 water stopped on 02/13/19 and will monitor serum/POC glucose closely -sliding scale insulin is only to be given if serum glucose above 200 for now (5) Hypothyroidism: -TSH as an outpatient was 44 on 01/23/19 and patient was started levothyroxine at that time -TSH was checked in the ED on 02/12/19 admission TSH had trended down to 18.2 -continuing current home dose levothyroxine 50 mcg daily without adjustment because it has been less than 6 weeks since initiation of levothyroxine and TSH is downtrending (6) Diastolic CHF: (7) Non-ischemic cardiomyopathy: -resumed home dose of torsemide 20 mg daily as patient received IV fluids during this hospital stay (8) CKD (chronic kidney disease) stage 4, GFR 15-29 ml/min: -have left arm fistula placed for potential dialysis -however, patient was never initiated on dialysis as of yet -follows with nephrology [facility] -patient makes urine -left arm restricted from blood draws (9) Hyperlipidemia: -Continue statin (10) DVT prophylaxis: -SQ heparin Anthony is son and power of real estate attorney [phone] Subjective Patient seen and examined sitting in the chair. she is hard of hearing and it is necessary to speak slowly and loudly. Anthony is son and power of real estate attorney [phone] and at bedside. Patient denies acute pain - no chest pain, no abdomen pain, no leg or back pain. denies shortness of breath. denies dizziness or lightheadedness. patient is awaiting physical and occupational evaluations and for close monitoring of blood sugars. Physical Exam Constitutional: + obese and comfortable Eyes: PERRL, conjunctivae normal, anicteric sclerae EOM intact bilaterally ENMT: external ear and nose normal, oropharynx normal Ears: + hearing impairment (need to speak slowly and loudly to patient) Respiratory: normal respiratory effort, lungs clear to auscultation Cardiovascular: Rate/Rhythm: regular rate and regular rhythm Gastrointestinal (Abdomen): normal bowel sounds, soft, nontender, no hepatosplenomegaly Musculoskeletal: Head/Neck/Chest: normocephalic and head atraumatic Extremities: + upper extremity abnormal to inspection (left arm fistula) Neurologic: PERRL, EOMI, accommodation nl, no face palsy, no dysarthria Psychiatric: Orientation: alert, oriented x 3 and cooperative Results & Data Vital Signs (Past 12 Hours) Vital Signs Temp Pulse Resp BP Pulse Ox 02/13/19 07:23 36.5 C 72 18 124/78 93
[2019-02-13] MEDS ORDERED: GLUCAGON FOR INJ 1 MG VIAL SQ PRN (11:44)
[2019-02-13] MEDS ORDERED: CARBOHYDRATES FOR HYPOGLYCEMIA PO PRN (11:44)
[2019-02-13] MEDS ORDERED: TORSEMIDE 10 MG TAB PO STA (11:52)
[2019-02-13] MEDS: INSULIN ASPART 100 UNITS/ML 3 ML PEN SC SCH ×3 (12:18→21:45)
[2019-02-13] MEDS: SIMVASTATIN 20 MG TAB PO SCH (21:44)
[2019-02-14] MEDS: HEPARIN SOD 5,000 UNIT/0.5 ML VIAL SQ SCH ×2 (05:43→12:47)
[2019-02-14] MEDS: LEVOTHYROXINE SODIUM 50 MCG TABLET PO SCH (05:44)
[2019-02-14 07:32] LABS: Basophils # (auto) 0.07 K/uL (0-0.2); Basophils % (auto) 1.2 %; Eosinophils # (auto) 0.28 K/uL (0-0.5); Eosinophils % (auto) 4.9 %; Hematocrit (blood only) 38.3 % (37-47); Hemoglobin 12.3 g/dL (12.0-16.0); Immature Granulocytes # (auto) 0.02 K/uL (0.00-0.02); Immature Granulocytes % (auto) 0.4 %; Lymphocytes # (auto) 1.44 K/uL (1.2-3.4); Lymphocytes % (auto) 25.4 %; Mean Corpuscular Hgb Conc 32.1 g/dL (32-36); Mean Corpuscular Volume 91.4 fL (80-100); Mean Platelet Volume 11.2 fL (7.4-10.4); Monocytes # (auto) 0.75 K/uL (0.11-0.59); Monocytes % (auto) 13.2 %; Neutrophils # (auto) 3.12 K/uL (1.4-6.5); Neutrophils % (auto) 54.9 %; Platelet Count 162 K/uL (130-400); RDW Coefficient of Variation 21.6 % (11.5-14.5); RDW Standard Deviation 71.3 fL (36.4-46.3); Red Blood Count 4.19 M/uL (4.2-5.4); White Blood Count 5.68 K/uL (4.8-10.8)
[2019-02-14 08:01] LABS: Albumin Level 3.3 gm/dl (3.4-5.0); BUN Creatinine Ratio 20.5 (10-20); Calcium 8.7 mg/dl (8.5-10.1); Creatinine Clr Calc Pharmacy 18.3 ml/min; Est GFR (Non-African American) 15.5; Potassium 3.9 mmol/L (3.5-5.1)
[2019-02-14 08:16] LABS: Albumin Globulin Ratio 0.9 (0.9-2); Bilirubin,Total 2.3 mg/dl (0.2-1); Globulin 3.6 gm/dl (2.5-4.0); Total Protein 6.9 gm/dl (6.4-8.2)
[2019-02-14] MEDS: INSULIN ASPART 100 UNITS/ML 3 ML PEN SC SCH ×2 (08:32→11:51)
[2019-02-14] MEDS: METOPROLOL SUCC 25MG EXT REL TAB PO SCH (08:33)
[2019-02-14] MEDS: MULTIVITAMIN TAB PO SCH (08:33)
[2019-02-14] MEDS ORDERED: TORSEMIDE 10 MG TAB PO SCH (09:00)
--- NOTE | 2019-02-14 12:06 | Hospitalist Progress Note ---
Date of Service February 14, 2019 Assessment & Plan (1) Hypoglycemia: (2) Frequent falls: Obesity with BMI of 44.5 in an adult -This is an 78 year female who lives in a 2nd story home with recurrent falls; as per patient' s son and power of banking attorney Anthony at bedside ([phone]), each time this happens the patient may be on the floor for several hours. The episode preceeding the hospital admission when the patient was on the floor for hours and no reported loss of consciousness -Head CT negative for acute findings -patient was found also to be hypoglycemic and hypoglycemia did not improve significantly with oral intake throughout 02/12/19 admission day and patient started on IV fluids with D5 -admitted to hospital to monitor closely of serum glucose and for evaluation of ambulation -patient may need to have discharge insulin dosing adjusted; as per patient's son, the patient has not been using her home glucose machine properly -physical and occupational therapy evaluations are pending; patient had expressed that she would not want to be placed in nursing facility or physical therapy facility but patient's son will help her with making decisions depending on patient's ambulatory status -minimally elevated creatinine kinase which downtrended with IV fluids, encourage oral hydration as tolerated -discharge to [facility] for inpatient physical therapy (3) Abnormal chest xray: -admission CXR showed right lower lobe opacity -Does not seem to be pneumonia, afebrile without leukocytosis and no significant pulmonary symptoms; patient Received IV ceftriaxone and azithromycin in the ED; procalcitonin was normal and no further respiratory antibiotics indicated at this time (4) Diabetes mellitus type 2, insulin dependent: 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 Patient should follow up with primary care doctor in 1 week at physical rehabilitation center for further monitoring and titration of insulin as needed Other upcoming appointments 03/02/2019 11:20 AM Provider Hima Tanner DO Department General Internal Medicine [facility] 03/08/2019 11:20 AM Provider Hima Tanner DO Department General Internal Medicine [facility] 03/09/2019 1:30 PM Provider Judith Coughlin MD Department Nephrology, [facility] 03/29/2019 10:00 AM Provider ARY Goldberg Department Sleep Disorders, [facility] 07/10/2019 3:00 PM Provider Olman Curry DO Department Cardiology, [facility] (5) Hypothyroidism: -TSH as an outpatient was 44 on 01/23/19 and patient was started levothyroxine at that time -TSH was checked in the ED on 02/12/19 admission TSH had trended down to 18.2 -continuing current home dose levothyroxine 50 mcg daily without adjustment because it has been less than 6 weeks since initiation of levothyroxine and TSH is downtrending -outpatient titration of levothyroxine and thyroid function panel testing as per her primary care doctor, Dr. Tanner (6) Diastolic CHF: (7) Non-ischemic cardiomyopathy: -continue home dose of torsemide 20 mg daily as patient received IV fluids during this hospital stay -patient received additional dose of IV Lasix 20 mg x 1 with her home dose torsemide 20 mg because of mild increase in leg edema Call your Primary Care doctor if any of the following symptoms or problems start or get worse: * Shortness of breath or difficulty breathing * Wake up at night short of breath * Chest pain * Cough * Swelling of your hands, feet, or legs * More fatigued or tired with your normal activity * Palpitations - sudden fast heart beats WEIGHT * Weigh yourself every morning after using the bathroom. * Use the same scale. * Wear the same amount of clothing. * Write your weight down on a chart. * Call your Primary Care doctor if you gain more than 2-3 pounds in 1-2 days. MEDICATIONS * Use this discharge instruction sheet for medication instructions. * Take your medications at the time your doctor ordered. * Do not skip a dose of your medicines. * If you miss a dose of medicine, take it as soon as possible, but DO NOT DOUBLE A DOSE. * Read your medicine information when you get home. * Know all of the side effects of your medicine. If in doubt, ask your pharmacist * Call your Primary Care doctor's office if you have any side effects. * Be sure all of your doctors know what medicine and herbs you take (including cold, flu, and herbal medicine). Take the following with you to your follow-up doctor appointments: * Weight Chart * Medication List * List of questions Do not drink excessive alcohol, beer or wine. (8) CKD (chronic kidney disease) stage 4, GFR 15-29 ml/min: -have left arm fistula placed for potential dialysis -however, patient was never initiated on dialysis as of yet -follows with nephrology [facility]arcelo -patient makes urine -left arm restricted from blood draws (9) Hyperlipidemia: -Continue statin (10) DVT prophylaxis: -SQ heparin while in the hospital Anthony is son and power of banking attorney [phone] Discharge Diagnosis: Type 2 diabetes mellitus with hypoglycemia without coma with truck terminal manager current use of insulin. recurrent falls. Obesity with BMI of 44.5 in an adult hypothyroidism. chronic kidney disease stage 4 Subjective Patient seen and examined during the day. She denies abdominal pain. no chest pain. no shortness of breath. no dizziness. no vomiting. she is eating her meals Physical Exam Constitutional: + obese and comfortable Eyes: PERRL, conjunctivae normal, anicteric sclerae EOM intact bilaterally ENMT: external ear and nose normal, oropharynx normal Ears: + hearing impairment (need to speak slowly and loudly to patient) Respiratory: normal respiratory effort, lungs clear to auscultation Cardiovascular: Rate/Rhythm: regular rate and regular rhythm Gastrointestinal (Abdomen): normal bowel sounds, soft, nontender, no hepatosplenomegaly Musculoskeletal: Head/Neck/Chest: normocephalic and head atraumatic Extremities: + upper extremity abnormal to inspection (left arm fistula) Neurologic: PERRL, EOMI, accommodation nl, no face palsy, no dysarthria Psychiatric: Orientation: alert, oriented x 3 and cooperative Results & Data Vital Signs (Past 12 Hours) Vital Signs Temp Pulse Resp BP Pulse Ox 02/14/19 07:25 36.7 C 68 18 138/70 95
--- NOTE | 2019-02-14 12:28 | Discharge Summary ---
Date of Service February 14, 2019 Admission HPI Per Admitting Provider 78 year old female who presents to the ED for frequent falls. Patient reports she has had 3 falls over the past 3 days. She has laid on the floor for up to 14 hours waiting for her son to come check on her. Today, patient's son called EMS for the patient to be evaluated. Patient reports that when she falls, her knees give out from under her. She denies any associated lightheadedness, dizziness, syncope, or chest pain. With these falls and being on the floor, she has been unable to eat and drink much. She did decrease her insulin doses at home. She has had a couple episodes of vomiting. No hematemesis or coffee ground emesis. She denies abdominal pain. She has chronic loose stools which are unchanged from baseline. She also has a chronic cough for the past several months which is unchanged as well. Cough is mostly non productive. She sometimes has exertional shortness of breath which is unchanged from baseline as well. No fevers or chills. She denies urinary symptoms. In the ED, patient is found to be hypoglycemic at 43, this improved after some snacks were given. CXR also questions a RLL pneumonia. Patient is afebrile, no leukocytosis. She was given IV ceftriaxone and IV azithromycin. Admission Exam Per Admitting Provider On exam, she was unkempt, obese, conversation carried out in high tones due to chronic hearing deficit and had some bruises on her knees. She was not pale, anicteric, EOMI and PERRL. Respiratory: Normal respiratory effort, no respiratory distress, lungs clear to auscultation, Cardiovascular: Pulse is RRR. normal S1 and S2; no murmurs no pedal edema Chest (Breasts): Chest: normal inspection of chest Gastrointestinal (Abdomen): Abdomen is soft, non-tender to palpation, no guarding, no palpable hepatosplenomegaly, normal bowel sounds Musculoskeletal: Power is about 4/5 in all extremities Skin: Bruises on knees. Difficulty turning patient to assess for pressure sores due to body habitus Neurologic: Alert and oriented x 3, No focal weakness, sensation grossly intact Psychiatric: Alert and oriented x 3, euthymic affect Lymphatic: No cervical lymphadenopathy Principal Diagnosis Type 2 diabetes mellitus with hypoglycemia without coma with group home current use of insulin. recurrent falls. Obesity with BMI of 44.5 in an adult hypothyroidism. chronic kidney disease stage 4 Discharge Data Allergies Allergy/AdvReac Type Severity Reaction Status Date / Time Aminoglycosides Allergy Intermediate Rash Verified 02/12/19 16:08 neomycin Allergy Intermediate Rash Verified 02/12/19 16:08 polymyxin B Allergy Intermediate Rash Verified 02/12/19 16:08 iodine Allergy Unknown Unknown Verified 02/12/19 16:08 promethazine Allergy Unknown Unknown Verified 02/12/19 16:08 aminophylline Allergy Unknown Verified 02/12/19 16:08 fish derived Allergy Anaphylaxis Verified 02/12/19 16:08 nystatin Allergy Unknown Verified 02/12/19 16:08 adhesive AdvReac Mild Tape - Verified 02/12/19 16:08 bumps alcohol AdvReac BUMPS ON Verified 02/12/19 16:08 SKIN W/ ETOH WIPES Consultations 02/12/19 18:54 ED Decision to Admit Stat 02/12/19 20:46 Consult Case Management - Discharge Planning Routine Ordered Studies 02/12/19 15:33 CT head/brain wo con Stat Hospital Course (1) Hypoglycemia: (2) Frequent falls: Obesity with BMI of 44.5 in an adult -This is an 78 year female who lives in a 2nd story home with recurrent falls; as per patient' s son and power of car wash supervisor Anthony at bedside ([phone]), each time this happens the patient may be on the floor for several hours. The episode preceeding the hospital admission when the patient was on the floor for hours and no reported loss of consciousness -Head CT negative for acute findings -patient was found also to be hypoglycemic and hypoglycemia did not improve significantly with oral intake throughout 02/12/19 admission day and patient started on IV fluids with D5 -admitted to hospital to monitor closely of serum glucose and for evaluation of ambulation -patient may need to have discharge insulin dosing adjusted; as per patient's son, the patient has not been using her home glucose machine properly -physical and occupational therapy evaluations are pending; patient had expressed that she would not want to be placed in nursing facility or physical therapy facility but patient's son will help her with making decisions depending on patient's ambulatory status -minimally elevated creatinine kinase which downtrended with IV fluids, encourage oral hydration as tolerated -discharge to [facility] for inpatient physical therapy (3) Abnormal chest xray: -admission CXR showed right lower lobe opacity -Does not seem to be pneumonia, afebrile without leukocytosis and no significant pulmonary symptoms; patient Received IV ceftriaxone and azithromycin in the ED; procalcitonin was normal and no further respiratory antibiotics indicated at this time (4) Diabetes mellitus type 2, insulin dependent: Type 2 diabetes mellitus with group home use of insulin and complications of hypoglycemia -Hgb A1c 7.4 12/2018 -home dose insulin of twice a day Humalin 70/30 has not been started on the hospital stay to avoid hypoglycemia -patient was given D5 water on admission, D5 water stopped on 02/13/19 -as of 02/14/19, patient has not had any episodes of hypoglycemia recommend at this time that patient change home dose Insulin 70/30 of 25 units every morning and 20 units every night to a lower regimen of 15 units twice a day. Patient should follow up with primary care doctor in 1 week at physical rehabilitation [place] for further monitoring and titration of insulin as needed Other upcoming appointments 03/02/2019 11:20 AM Provider Hima Tanner DO Department General Internal Medicine [facility] 03/08/2019 11:20 AM Provider Hima Tanner DO Department General Internal Medicine [facility] 03/09/2019 1:30 PM Provider Judith Coughlin MD Department Nephrology, [facility] 03/29/2019 10:00 AM Provider ARY Goldberg Department Sleep Disorders, [facility] 07/10/2019 3:00 PM Provider Olman Curry DO Department Cardiology, [facility] (5) Hypothyroidism: -TSH as an outpatient was 44 on 01/23/19 and patient was started levothyr oxine at that time -TSH was checked in the ED on 02/12/19 admission TSH had trended down to 18.2 -continuing current home dose levothyroxine 50 mcg daily without adjustment because it has been less than 6 weeks since initiation of levothyroxine and TSH is downtrending -outpatient titration of levothyroxine and thyroid function panel testing as per her primary care doctor, Dr. Tanner (6) Diastolic CHF: (7) Non-ischemic cardiomyopathy: -continue home dose of torsemide 20 mg daily as patient received IV fluids during this hospital stay -patient received additional dose of IV Lasix 20 mg x 1 with her home dose torsemide 20 mg because of mild increase in leg edema Call your Primary Care doctor if any of the following symptoms or problems start or get worse: * Shortness of breath or difficulty breathing * Wake up at night short of breath * Chest pain * Cough * Swelling of your hands, feet, or legs * More fatigued or tired with your normal activity * Palpitations - sudden fast heart beats WEIGHT * Weigh yourself every morning after using the bathroom. * Use the same scale. * Wear the same amount of clothing. * Write your weight down on a chart. * Call your Primary Care doctor if you gain more than 2-3 pounds in 1-2 days. MEDICATIONS * Use this discharge instruction sheet for medication instructions. * Take your medications at the time your doctor ordered. * Do not skip a dose of your medicines. * If you miss a dose of medicine, take it as soon as possible, but DO NOT DOUBLE A DOSE. * Read your medicine information when you get home. * Know all of the side effects of your medicine. If in doubt, ask your pharmacist * Call your Primary Care doctor's office if you have any side effects. * Be sure all of your doctors know what medicine and herbs you take (including cold, flu, and herbal medicine). Take the following with you to your follow-up doctor appointments: * Weight Chart * Medication List * List of questions Do not drink excessive alcohol, beer or wine. 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 recurrent falls. Obesity with BMI of 44.5 in an adult hypothyroidism. chronic kidney disease stage 4 Total Time Total Time Spent Total Time Spent (In Minutes): 40 minutes Total Time Includes: Examination of the Patient, Discharge Planning, Medication Reconciliation and Communication With Other Providers Discharge Plan Discharge Items Patient Disposition: Transfer Inpatient Rehab Fac Reason For Visit: FALLS, HYPGLYCEMIA Discharge Diagnosis: Type 2 diabetes mellitus with hypoglycemia without coma with group home current use of insulin. recurrent falls. Obesity with BMI of 44.5 in an adult hypothyroidism. chronic kidney disease stage 4 Condition on Discharge: Good Goals: improve ambulation. control diabetes mellitus and avoid hypoglycemia Activity: Per Instructions section Non-emergency contact: Primary Care Provider Call non-emergency contact if: you have any medication questions Follow-up/Referrals: Hima Tanner DO [Primary Care Provider] - Diet: Carb Consistent or DM2 Addtl Attending Provider Instructions: discharge to [facility] for inpatient physical rehabilitation recommend at this time that patient change home dose Insulin 70/30 of 25 units every morning and 20 units every night to a lower regimen of 15 units twice a day. Patient should follow up with primary care doctor in 1 week at physical rehabilitation center for further monitoring and titration of insulin as needed -outpatient titration of levothyroxine and thyroid function panel testing as per her primary care doctor, Dr. Tanner Other upcoming appointments 03/02/2019 11:20 AM Provider Hima Tanner DO Department General Internal Medicine [facility] 03/08/2019 11:20 AM Provider Hima Tanner DO Department General Internal Medicine [facility] 03/09/2019 1:30 PM Provider Judith Coughlin MD Department Nephrology, [facility] 03/29/2019 10:00 AM Provider ARY Goldberg Department Sleep Disorders, [facility] 07/10/2019 3:00 PM Provider Olman Curry DO Department Cardiology, [facility] Call your Primary Care doctor if any of the following symptoms or problems start or get worse: * Shortness of breath or difficulty breathing * Wake up at night short of breath * Chest pain * Cough * Swelling of your hands, feet, or legs * More fatigued or tired with your normal activity * Palpitations - sudden fast heart beats WEIGHT * Weigh yourself every morning after using the bathroom. * Use the same scale. * Wear the same amount of clothing. * Write your weight down on a chart. * Call your Primary Care doctor if you gain more than 2-3 pounds in 1-2 days. MEDICATIONS * Use this discharge instruction sheet for medication instructions. * Take your medications at the time your doctor ordered. * Do not skip a dose of your medicines. * If you miss a dose of medicine, take it as soon as possible, but DO NOT DOUBLE A DOSE. * Read your medicine information when you get home. * Know all of the side effects of your medicine. If in doubt, ask your pharmacist * Call your Primary Care doctor's office if you have any side effects. * Be sure all of your doctors know what medicine and herbs you take (including cold, flu, and herbal medicine). Take the following with you to your follow-up doctor appointments: * Weight Chart * Medication List * List of questions Do not drink excessive alcohol, beer or wine. 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 She states her blood sugar meter battery ran out several weeks ago so she has not been checking her blood sugar prior to admit. Denies any S/S of hypoglycemia prior to admit except the weak legs/falls. She states her son replaced the battery in her meter. She is agreeable to check her blood sugar 3x/day following discharge given recent events. I also encouraged more conservative BG target given her age and lives alone. I also emphasized the importance of regular meals thru the day and small bedtime snack given pre-mixed insulin regimen. Pending Studies at Discharge: No Stand-Alone Forms: My [facility] Skilled Items Patient informed of condition?: Yes DNR: No Discharge Level of Care: Acute rehab Communicable Disease: No Discharge Prognosis: Stable Lines: None Urinary Catheter: No Medications and DC Order Prescriptions: Continued multivitamin Tablet 1 tab PO QAM RF: 0 calcium carbonate 600 mg calcium (1,500 mg) Tablet 600 mg PO DIRECTED PRN (Reason: Acid Reflux) RF: 0 simvastatin 20 mg Tablet 20 mg PO PM RF: 0 clotrimazole-betamethasone 1-0.05 % Cream 1 applic TOPICAL BID PRN (Reason: Rash) RF: 0 omeprazole 20 mg Capsule,Delayed Release(Dr/Ec) 20 mg PO QAM PRN (Reason: Heartburn) RF: 0 torsemide 20 mg tablet 20 mg PO QAM RF: 0 benzonatate 100 mg capsule 100 mg PO TID PRN (Reason: Cough) RF: 0 levothyroxine 50 mcg tablet 50 mcg PO DAILYBB RF: 0 metoprolol succinate 25 mg tablet extended release 24 hr 25 mg PO QAM RF: 0 Changed Humulin 70/30 U-100 Insulin 100 unit/mL (70-30) Suspension 15 unit SUBCUT BID 30 Days Qty: 900 RF: 0 Discontinued Humulin 70/30 U-100 Insulin 100 unit/mL (70-30) suspension 25 unit SUBCUT QAM RF: 0 Discharge Orders: Discharge Order (Routine); Ordered 02/14/19 Ordered By: Magdiel Benson Admission Data Admit Date/Time: 02/12/19 19:09 Attending Provider: Cassandra Cade Admit Provider: Rita Gracia I. Primary Care Provider: Hima Tanner Other Providers: Rita Gracia I.
[2019-02-14] MEDS ORDERED: FUROSEMIDE 20 MG in SYRINGE 0 ML IV ONE (12:30)
[2019-02-14] MEDS ORDERED: INSULIN ASPART 100 UNITS/ML 3 ML PEN SC SCH (16:30)
== END 2019-02-14 15:17 | DRG 638 ==
LOC: ED 14:39 → 2N 19:09 → SUATTDRO 19:09 → 2N 19:54

== ENCOUNTER 2019-03-02 10:36 | Inpatient (IN) ==
[2019-03-02] MEDS ORDERED: ACETAMINOPHEN 325 MG TAB PO PRN (12:07)
--- NOTE | 2019-03-02 13:15 | XRay Report ---
XR chest 1V portable HISTORY: 78 years-old Female fluid overload COMPARISON: Chest radiograph 02/12/2019 TECHNIQUE: Portable AP view of the chest FINDINGS: Cardiac silhouette is enlarged. Mild pulmonary vascular congestion. Probable trace left with moderate right pleural effusions. Right perihilar and right lung base consolidation. Degenerative changes of the shoulders and spine. IMPRESSION: 1. Trace left and moderate right pleural effusions with right midlung and right lung base consolidati on. Correlate clinically to exclude pneumonia. 2. Cardiomegaly with pulmonary vascular congestion. The above report was generated using voice recognition software. It may contain grammatical, syntax o r spelling errors. Electronically signed by: Milind Henry M.D. 03/02/2019 1:14 PM
[2019-03-02] MEDS ORDERED: DOCUSATE SODIUM 100 MG CAP PO PRN (13:17)
[2019-03-02] MEDS ORDERED: POLYETHYLENE (MIRALAX) 17 GM PACK PO PRN (13:17)
--- NOTE | 2019-03-02 13:22 | History & Physical Report ---
Date of Service March 02, 2019 Assessment & Plan (1) Acute on chronic heart failure: Hx systolic heart failure. EF: 35-40% on echo in 05/2018 which increased to 55% on echo in 12/2018. Pt presented with increased BLE edema and abdominal edema with weight gain. It is reported at pt's weight was 250.8 lbs on 02/21/19 and increased to 210 lbs on 03/02/19. Reported that pt was given 1L NSS over past 24 hours and her torsemide was decreased at secondary to hyponatremia. Baseline SOB and orthopnea, denies increased SOB. Denies CP CXR: Trace left and moderate right pleural effusions with right midlung and right lung base consolidation. Cardiomegaly with pulmonary vascular congestion. -monitor I's & O's and daily weight -lasix 60mg IV now -echo -nephrology consult for assistance in diuretic dosing with CKD -initial recommendations from family nurse practitioner lasix 60mg TID, low sodium diet, fluid restriction 1200ml -hold home torsemide -cardiology consult -monitor bmp (2) Hyponatremia: Reported that Na: 120 today and 123 yesterday and day prior from . Reported pt was given total 1L NSS over past 24 hours Pt alert. Na:119 -Pending serum osmolality, urine osmolality, urine sodium -Closely monitor bmp -Nephrology consult, family nurse practitioner recommends close monitoring of bmp (3) CKD (chronic kidney disease) stage 4, GFR 15-29 ml/min: Not yet on dialysis. Has AV fistula. Follows with Dr Coughlin Cr: 2.5. baseline ~2.3-2.7 -Avoid nephrotoxic agents when possible -Monitor renal functions -Nephrology consult (4) Diabetes mellitus type 2, insulin dependent: Hx hypoglycemia. Reported glucose in 40's this am POC glucose: 80 -Hold home insulin 70/30 -Hold insulin at this time -Monitor BSGs, may need to adjust insulin (5) Hypothyroidism: TSH: 21. Was 44 -Recently had levothyroxine increased from 50mcg to 75cmg on 01/23/19 -Continue levothyroxine (6) Hyperlipidemia: -Continue atorvastatin (7) GERD (gastroesophageal reflux disease): -Continue PPI DVT Prophylaxis -Heparin SQ Full Code as per discussion with pt Follows with Dr Tanner for routine care Pt was seen and care coordinated with Dr Stahl. See addendum History of Present Illness Chief Complaint: Increased edema Primary Care Provider: Hima Tanner DO Pt is 78 y/o F with PMH systolic congestive heart failure, CKD IV not yet on dialysis, has AV fistula, insulin-dependent DM II, chronic LBBB, obesity, hypothyroidism and others listed below presented as direct admission from for hyponatremia and increased edema. Patient with recent hospital admission 02/12/2019-02/14/2019 for frequent falls, hypoglycemia and was discharged to . Pt reports chronic SOB at baseline and chronic orthopnea. She does not feel she is any more SOB than her baseline however has noticed increased edema to legs and abdomen. Reports been having cough white phlegm for past month. reports that today sodium was 120 and was 123 yesterday. Creatinine: 2.5 today and was 2.3 yesterday. Reported that her torsemide was decreased at [facility]. Reports was given IV Lasix 20 mg 1 dose yesterday. Also reports was given NSS at 70 ml/hr for total of 1 Liter NSS yesterday. She states has been urinating. Pt reports eating and dri nking and thinks drinks approx 32 ounces of water a day. Pt states still with difficulty walking and reports has not been able to participate in PT very much at . Denies fever/chills, diaphoresis, N/V/D/C, WHITAKER, dizziness, syncope, vision changes, neck pain, CP, palpitations,sore throat, choking, otalgia, rhinorrhea, abdominal pain, rashes, urinary symptoms. Allergies Allergy/AdvReac Type Severity Reaction Status Date / Time Aminoglycosides Allergy Intermediate Rash Verified 03/01/19 15:33 neomycin Allergy Intermediate Rash Verified 03/01/19 15:33 polymyxin B Allergy Intermediate Rash Verified 03/01/19 15:33 iodine Allergy Unknown Unknown Verified 03/01/19 15:33 promethazine Allergy Unknown Unknown Verified 03/01/19 15:33 aminophylline Allergy Unknown Verified 03/01/19 15:33 fish derived Allergy Anaphylaxis Verified 03/01/19 15:33 nystatin Allergy Unknown Verified 03/01/19 15:33 adhesive AdvReac Mild Tape - Verified 03/01/19 15:33 bumps alcohol AdvReac BUMPS ON Verified 03/01/19 15:33 SKIN W/ ETOH WIPES Home Medications Home Medications Medication Instructions Recorded Confirmed Type clotrimazole-betamethasone 1 applic TOPICAL BID PRN 05/30/18 03/02/19 History multivitamin 1 tab PO QAM 05/30/18 03/02/19 History torsemide 20 mg PO QAM 06/26/18 03/02/19 History benzonatate 100 mg PO TID PRN 02/12/19 03/02/19 History metoprolol succinate 25 mg PO QAM 02/12/19 03/02/19 History acetaminophen [Tylenol] 650 mg PO QID PRN 03/01/19 03/02/19 History atorvastatin 10 mg PO HS 03/01/19 03/02/19 History bisacodyl 10 mg [place] DAILY PRN 03/01/19 03/02/19 History docusate sodium [Stool Softener] 100 mg PO BID PRN 03/01/19 03/02/19 History heparin (porcine) 5,000 unit SUBCUT Q8H 03/01/19 03/02/19 History insulin NPH and regular human 20 unit SUBCUT BID 03/01/19 03/02/19 History [Humulin 70/30 U-100 Insulin] pantoprazole 40 mg PO DAILY 03/01/19 03/02/19 History polyethylene glycol 3350 [Miralax] 17 g PO DAILY PRN 03/01/19 03/02/19 History sennosides [Senokot] 8.6 mg PO DAILY PRN 03/01/19 03/02/19 History sodium phosphates [Fleet Enema] 118 ml [place] DAILY PRN 03/01/19 03/02/19 History gabapentin 100 mg PO BID 03/02/19 03/02/19 History levothyroxine 75 mcg PO DAILYBB 03/02/19 03/02/19 History Past Med/Surg History Medical History Systolic heart failure (Chronic) Weakness (Chronic) Fall (Resolved) Frequent falls (Chronic) Hyperlipidemia (Chronic) Peripheral neuropathy (Chronic) GERD (gastroesophageal reflux disease) (Chronic) controlled Osteoarthritis (Chronic) Chronic back pain (Chronic) Anemia (Chronic) LBBB (left bundle branch block) (Chronic) chronic Breast cancer (Resolved) 2010 radiation. +chemo per PCP records Morbid obesity (Chronic) Hypothyroidism (Chronic) Diastolic CHF (Chronic) Non-ischemic cardiomyopathy (Chronic) Diabetes mellitus type 2, insulin dependent (Chronic) LBBB (left bundle branch block) (Chronic) CKD (chronic kidney disease) stage 4, GFR 15-29 ml/min (Chronic) Surgical History History of cardiac cath (Chronic) 06/2018: Mild, non-obstructive coronary artery disease. No culprit lesions identified to explain symptoms or abnormal stress test. The mid LAD has a 40% stenosis and minor luminal irregularities elsewhere.The LVEDP was 19 mmHg which is mildly elevated. AVF (arteriovenous fistula) (Chronic) History of cataract surgery (Chronic) History of appendectomy (Chronic) Hx of lumpectomy (Chronic) Right breast Family History Father Diabetes Social History Preferred Language: Cook Islander Communication Ability: Effective Visual Impairment: No Limitations Hearing Ability: Hard of Hearing Conveyancer Required: No Beliefs That Will Affect Care: None marital status: Current Living Situation: Alone Other Information That Helps Us Care for You: No Feels Safe at Home: Yes Safety Concerns: Feels Safe At This Time Smoking Status: Never smoker Second Hand Exposure: No ; Hx Alcohol Use: No Hx Substance Use: No Review of Systems Review of Systems: All systems reviewed & are unremarkable except as noted in HPI & below Physical Exam Physical Exam: General: no acute distress, obese Head: normocephalic, atraumatic Eyes: PERRL, EOM's intact, conjunctiva non-injected, anicteric ENT: normal inspection external ears, nose, mucous membranes moist Neck: supple, trachea midline Lungs: Diminished throughout, greater at bases with faint rales at bases CV: RRR, no murmur, 2-3+ pretibial edema bilateral legs Abd: normal BS, +edema abdomen, soft, non-tender, multiple ecchymosis noted Ext: no cyanosis, no calf tenderness Neuro: A&O x 3, no focal deficits noted, normal affect Skin: warm, dry Results & Data Vital Signs (Past 12 Hours) Vital Signs Temp Resp BP Pulse Ox 03/02/19 12:54 36.3 C L 22 118/68 97 Laboratory Results Short CBC 03/02/19 03/02/19 03/02/19 Range/Units 14:28 14:28 14:28 WBC 5.65 (4.8-10.8) K/uL Hgb 12.3 (12.0-16.0) g/dL Hct 36.7 L (37-47) % Plt Count 205 (130-400) K/uL Potassium 5.2 H (3.5-5.1) mmol/L BUN 80 H (7-18) mg/dl Creatinine 2.57 H (0.6-1.2) mg/dl Est GFR (Non-Af Amer) 17.0 Glucose 57 L (70-99) mg/dl Osmolality 276 L (280-300) mOsm/kg Total Bilirubin 1.8 H (0.2-1) mg/dl Alkaline Phosphatase 210 H (45-117) U/L NT-Pro-B Natriuret Pep 7809 H (0-1800) pg/ml Albumin 3.2 L (3.4-5.0) gm/dl TSH 21.200 H (0.300-4.500) uIu/ml BMP 03/02/19 14:28 Sodium 119 L* Potassium 5.2 H Chloride 84 L Carbon Dioxide 26 BUN 80 H Creatinine 2.57 H Glucose 57 L Calcium 8.6 Cardiac Enzymes 03/02/19 Range/Units 14:28 Troponin I 0.045 (0-0.045) ng/ml Liver Function 03/02/19 Range/Units 14:28 Total Bilirubin 1.8 H (0.2-1) mg/dl AST 47 H (15-37) U/L ALT 36 (12-78) U/L Alkaline Phosphatase 210 H (45-117) U/L Albumin 3.2 L (3.4-5.0) gm/dl Urine 03/02/19 Range/Units 13:30 Urine Color Yellow Urine Appearance Clear (Clear) Urine pH 5.5 (4.5-7.5) Ur Specific [place] 1.013 (1.000-1.030) Urine Protein Negative (Negative) Urine Glucose (UA) Negative (Negative) Diagnostic Findings CXR: IMPRESSION: 1. Trace left and moderate right pleural effusions with right midlung and right lung base consolidation. Correlate clinically to exclude pneumonia. 2. Cardiomegaly with pulmonary vascular congestion. Code Status & VTE Plan VTE Prophylaxis Plan VTE Prophylaxis will be ordered: Yes Supervising Physician Co-Signing Physician Notes I saw this patient with the physician medical office receptionist assistant, I participated in the history, physical, review of systems, and physical exam. I reviewed the medications with the patient and the physician medical office receptionist assistant and helped reconcile the medications. I helped take a detailed family and social history as well. I formulated the assessment and plan personally with the physician medical office receptionist assistant and went over it with the patient. ROS-No Headache, No Visual Changes, No Nausea, No Vomiting, No Fever, No Chills, No Neck Pain or Stiffness, No Chest Pain, No Palpitations, No SOB, No BOOKER, No Cough, No Sputum, No Wheezing, No Abdominal Pain, No Diarrhea, No Hematemesis, No Hemoptysis, No Unexpected Weight Loss, No Flank pain, No Melena, No Hematochezia, No Frequency, No Urgency, No Burning, No Hematuria, No Rashes, No Diaphoresis. Appetite is Normal Physical Exam Gen-AAO x 3, NAD, Afebrile, CHINIK Head-NCAT, EOMI, PERRLA, Anicteric Sclera, No Posterior Pharyngeal Erythema Neck-Supple, No JVD, No Thyromegaly, No Masses, No LAD, No Bruits Lungs-Diminished Bilaterally, No Rales, No Rhonchi, No Wheezing, No Crepitus Chest-No S4, +S1, +S2, No S3, No Murmurs, No Rubs, No Gallops, No Ectopy Abdomen-Soft, Bowel Sounds Present, Non Tender, Non Distended, No Hepatomegaly, No Splenomegaly, No Palpable Masses, No Rebound, No Rigidity, No Guarding Musculoskeletal-Full Range of Motion Bilaterally, No CVAT Extremities-No Cyanosis, No Clubbing, 4+ Edema into lower abd and sacral edema Nuero-Cranial Nerves II-XII grossly intact, Motor WNL, DTRs WNL, Strength WNL, Non Focal Psych-Normal Mood
[2019-03-02] MEDS ORDERED: GLUCOSE 40% GEL 15 GM TUBE PO PRN (13:26)
[2019-03-02] MEDS ORDERED: GLUCAGON FOR INJ 1 MG VIAL SQ PRN (13:26)
[2019-03-02] MEDS ORDERED: GLUCOSE 10 TABS/TUBE PO PRN (13:26)
[2019-03-02] MEDS ORDERED: DEXTROSE 50% 50 ML SYRINGE IV PRN (13:26)
[2019-03-02] MEDS ORDERED: CARBOHYDRATES FOR HYPOGLYCEMIA PO PRN (13:26)
[2019-03-02] MEDS ORDERED: PATIENT'S HEIGHT AND/OR WEIGHT NEEDED SCH (13:45)
[2019-03-02 13:53] LABS: Appearance Urine Clear (Clear); Bilirubin Urine Negative (Negative); Blood Urine Negative (Negative); Color Urine Yellow; Glucose Urine UA Negative (Negative); Ketones Urine Negative (Negative); Leukocyte Esterase Urine Negative (Negative); Nitrite Urine Negative (Negative); Protein Urine Negative (Negative); Specific Gravity Urine 1.013 (1.000-1.030); Urobilinogen Urine Negative (Negative); pH Urine 5.5 (4.5-7.5)
[2019-03-02] MEDS ORDERED: FUROSEMIDE 60 MG in SYRINGE 0 ML IV ONE (14:30)
[2019-03-02 14:39] LABS: Mean Corpuscular Hgb Conc 33.5 g/dL (32-36); Mean Platelet Volume 10.3 fL (7.4-10.4); Platelet Count 205 K/uL (130-400)
[2019-03-02 14:58] LABS: INR 1.2 (0.9-1.1); Partial Thromboplastin Ratio 1.3; Partial Thromboplastin Time 34.8 Seconds (21.0-31.0); Prothrombin Time 11.9 Seconds (9.0-12.0)
[2019-03-02 15:11] LABS: Albumin Globulin Ratio 0.8 (0.9-2); Albumin Level 3.2 gm/dl (3.4-5.0); Bilirubin,Total 1.8 mg/dl (0.2-1); Calcium 8.6 mg/dl (8.5-10.1); Creatinine Clr Calc Pharmacy 21.6 ml/min; Est GFR (African American) 19.7; Globulin 3.9 gm/dl (2.5-4.0); Magnesium 2.7 mg/dl (1.8-2.4); Phosphorus 3.8 mg/dl (2.5-4.9); Potassium 5.2 mmol/L (3.5-5.1); Thyroid Stimulating Hormone 21.2 uIu/ml (0.300-4.500); Total Protein 7.1 gm/dl (6.4-8.2); Troponin I 0.045 ng/ml (0-0.045)
[2019-03-02 15:12] LABS: Acanthocytes 1+; Anisocytosis Present; Basophils # (auto) 0.05 K/uL (0-0.2); Basophils % (auto) 0.9 %; Eosinophils % (auto) 8.8 %; Hematocrit (blood only) 36.7 % (37-47); Hemoglobin 12.3 g/dL (12.0-16.0); Immature Granulocytes # (auto) 0.01 K/uL (0.00-0.02); Immature Granulocytes % (auto) 0.2 %; Lymphocytes # (auto) 0.85 K/uL (1.2-3.4); Mean Corpuscular Hemoglobin 29.7 pg (25-34); Mean Corpuscular Volume 88.6 fL (80-100); Monocytes # (auto) 0.71 K/uL (0.11-0.59); Monocytes % (auto) 12.6 %; Neutrophils # (auto) 3.53 K/uL (1.4-6.5); Neutrophils % (auto) 62.5 %; RDW Coefficient of Variation 20.1 % (11.5-14.5); RDW Standard Deviation 65.5 fL (36.4-46.3); Red Blood Count 4.14 M/uL (4.2-5.4); Schistocytes 1+; White Blood Count 5.65 K/uL (4.8-10.8)
[2019-03-02] MEDS ORDERED: PERFLUTREN LIPID MICROSPHERE (DEFINITY) IV ONE (15:25)
[2019-03-02] MEDS: HEPARIN SOD 5,000 UNIT/0.5 ML VIAL SQ SCH ×2 (15:39→21:43)
[2019-03-02] MEDS ORDERED: DEXTROSE 50% 50 ML SYRINGE IV STA (15:54)
--- NOTE | 2019-03-02 16:22 | Cardiology Consultation ---
Date of Consultation March 02, 2019 Assessment & Plan (1) Acute on chronic heart failure: (2) Volume overload: (3) Hyponatremia: The patient has a history of a nonischemic cardiomyopathy, echocardiogram performed as an inpatient in May 2018 revealed an ejection fraction in the range of 35 to 40%. Mild pulmonary hypertension was present at that time with estimated pulmonary artery systolic pressure of 47 mmHg. Her echocardiogram was repeated as an outpatient on 12/22/2018 at [facility] with findings of normal LVEF , 55%. An echo had been performed today revealing recurrent LV systolic dysfunction with LVEF of 20-25% per Dr Fine's report. Cardiac catheterization had been performed in June 2018 with mild nonobstructive disease with 40% mid LAD stenosis. The left ventricular end- diastolic pressure was mildly elevated at 19 mmHg at that time. The patient has a history of stage IV chronic kidney disease, chemistry panel as an outpatient on 01/23/2019 included a creatinine of 2.7 and a calculated GFR of 16 mL/min/m. Today the creatinine is 2.57 and the corrected GFR is relatively unchanged compared to the previous, but she has market volume overload with noted hyponatremia (sodium 119). I had requested a repeat EKG on a stat basis to reassess her QRS duration as this may be a marker that more aggressive management of her mild hyperkalemia is present. I will coordinate diuretic therapy with the nephrology team . Fish catheter is in place. Agree with SQ heparin for DVT prophylaxis. Continue metoprolol. History of Present Illness Attending Physician: Magdiel Stahl DO History of Present Illness Sliva Kirby is an 78-year-old female seen in cardiology consultation per the request of Andres Gonzalez PA-C of the [facility] service for cardiology input regarding her presentation with volume overload. Patient recently been admitted to the [facility] for recurrent falls. She was discharged to rehab on 02/14/19 [facility]. Per her discharge summary, she was to be on her prior to hospital dose of torsemide 20 mg daily. The patient describes a 25 pound weight gain over the last few days. She was transferred for direct admission. At present, she notes that her breathing has been "tight "for the last few days and she has a significant lower extremity edema. Her presenting labs performed today at 1428 revealed multiple abnormalities including a sodium of 119, potassium 5.2, chloride of 84, BUN of 80, and creatinine of 2.57. Her glucose is been 56. proBNP was 7809. Her TSH was 21.2 migraine international units per liter. Allergies Allergy/AdvReac Type Severity Reaction Status Date / Time Aminoglycosides Allergy Intermediate Rash Verified 03/01/19 15:33 neomycin Allergy Intermediate Rash Verified 03/01/19 15:33 polymyxin B Allergy Intermediate Rash Verified 03/01/19 15:33 iodine Allergy Unknown Unknown Verified 03/01/19 15:33 promethazine Allergy Unknown Unknown Verified 03/01/19 15:33 aminophylline Allergy Unknown Verified 03/01/19 15:33 fish derived Allergy Anaphylaxis Verified 03/01/19 15:33 nystatin Allergy Unknown Verified 03/01/19 15:33 adhesive AdvReac Mild Tape - Verified 03/01/19 15:33 bumps alcohol AdvReac BUMPS ON Verified 03/01/19 15:33 SKIN W/ ETOH WIPES Home Medications Home Medications Medication Instructions Recorded Confirmed Type clotrimazole-betamethasone 1 applic TOPICAL BID PRN 05/30/18 03/02/19 History multivitamin 1 tab PO QAM 05/30/18 03/02/19 History torsemide 20 mg PO QAM 06/26/18 03/02/19 History benzonatate 100 mg PO TID PRN 02/12/19 03/02/19 History metoprolol succinate 25 mg PO QAM 02/12/19 03/02/19 History acetaminophen [Tylenol] 650 mg PO QID PRN 03/01/19 03/02/19 History atorvastatin 10 mg PO HS 03/01/19 03/02/19 History bisacodyl 10 mg [place] DAILY PRN 03/01/19 03/02/19 History docusate sodium [Stool Softener] 100 mg PO BID PRN 03/01/19 03/02/19 History heparin (porcine) 5,000 unit SUBCUT Q8H 03/01/19 03/02/19 History insulin NPH and regular human 20 unit SUBCUT BID 03/01/19 03/02/19 History [Humulin 70/30 U-100 Insulin] pantoprazole 40 mg PO DAILY 03/01/19 03/02/19 History polyethylene glycol 3350 [Miralax] 17 g PO DAILY PRN 03/01/19 03/02/19 History sennosides [Senokot] 8.6 mg PO DAILY PRN 03/01/19 03/02/19 History sodium phosphates [Fleet Enema] 118 ml [place] DAILY PRN 03/01/19 03/02/19 History gabapentin 100 mg PO BID 03/02/19 03/02/19 History levothyroxine 75 mcg PO DAILYBB 03/02/19 03/02/19 History Patient History Medical History Systolic heart failure (Chronic) Weakness (Chronic) Fall (Resolved) Frequent falls (Chronic) Hyperlipidemia (Chronic) Peripheral neuropathy (Chronic) GERD (gastroesophageal reflux disease) (Chronic) controlled Osteoarthritis (Chronic) Chronic back pain (Chronic) Anemia (Chronic) LBBB (left bundle branch block) (Chronic) chronic Breast cancer (Resolved) 2010 radiation. +chemo per PCP records Morbid obesity (Chronic) Hypothyroidism (Chronic) Diastolic CHF (Chronic) Non-ischemic cardiomyopathy (Chronic) Diabetes mellitus type 2, insulin dependent (Chronic) LBBB (left bundle branch block) (Chronic) CKD (chronic kidney disease) stage 4, GFR 15-29 ml/min (Chronic) Surgical History History of cardiac cath (Chronic) 06/2018: Mild, non-obstructive coronary artery disease. No culprit lesions identified to explain symptoms or abnormal stress test. The mid LAD has a 40% stenosis and minor luminal irregularities elsewhere.The LVEDP was 19 mmHg which is mildly elevated. AVF (arteriovenous fistula) (Chronic) History of cataract surgery (Chronic) History of appendectomy (Chronic) Hx of lumpectomy (Chronic) Right breast Family History Father Diabetes Social History Preferred Language: Tajik Communication Ability: Effective Visual Impairment: No Limitations Hearing Ability: Hard of Hearing [employer] Service Supervisor Required: No Beliefs That Will Affect Care: None marital status: Current Living Situation: Alone Other Information That Helps Us Care for You: No Feels Safe at Home: Yes Safety Concerns: Feels Safe At This Time Smoking Status: Never smoker Second Hand Exposure: No ; Hx Alcohol Use: No Hx Substance Use: No Review of Systems Review of Systems: All systems reviewed & are unremarkable except as noted in HPI & below Physical Exam Physical Exam: Temp Pulse Resp BP Pulse Ox 35.5 C L 66 18 131/56 L 98 03/02/19 16:12 03/02/19 16:12 03/02/19 16:12 03/02/19 16:12 03/02/19 16:12 Constitutional: Acutely ill in appearance Respiratory: Decreased breath sounds bilaterally at the bases Cardiovascular: Distant heart sounds, regular, no murmur 2+ bilateral lower extremity edema, abdominal blood Gastrointestinal (Abdomen): Inspection/Auscultation: + abdomen distended Percussion/Palpation: no guarding Neurologic: PERRL, EOMI, accommodation nl, no face palsy, no dysarthria Results & Data Vital Signs (Past 12 Hours) Vital Signs Temp Pulse Pulse Resp BP Pulse Ox 03/02/19 16:12 35.5 C L 66 18 131/56 L 98 03/02/19 15:25 65 03/02/19 13:47 66 03/02/19 12:54 36.3 C L 22 118/68 97 Laboratory Results EKG performed today 03/02/2019 revealed normal sinus rhythm at 65 bpm with first- degree AV block, NM interval 200 ms, ventricular conduction delay noted with QRS duration of 138 ms. compared to the prior tracing performed 02/12/2019, the conduction delay has progressed to 200 ms as compared to 140 ms at that time. The NM interval has progressed as well to 20 ms from 166 ms.
[2019-03-02] MEDS ORDERED: INSULIN ASPART 100 UNITS/ML 3 ML PEN SC SCH (16:30)
--- NOTE | 2019-03-02 18:18 | Nephrology Consultation ---
Date of Consultation March 02, 2019 Assessment & Plan (1) Hyponatremia: sNa 119 on presentation 03/02. hypervolemic hypotonic hyponatremia, though would expect far lower serum osms w/ this degree of hyponatremia. TSH elevated but improving (44 earlier this month > 21) after med adjustment. Not symptomatic (ie no seizures, no altered MS, no emesis); also chronic condition (ie, present > 48 hrs) Goal sNa is 125 tomorrow midday. -lasix 60 mg IV tid -FR 1.2L, <2 gm Na diet -strict I/O -repeat bmp ordered/in process for 1800 Present on Admission?: Yes (2) CKD (chronic kidney disease) stage 4, GFR 15-29 ml/min: baseline creatinine in mid 2's. at baseline. has mature avf. 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 daily bmp once sNa stabilizes -orders in to check proteinuria status -no emergent indication for dialysis but may need this admission; needs aggressive diuresis trial first Present on Admission?: Yes (3) Volume overload: anasarca > diuretics as above; recheck sodium now; cont tid lasix 60 mg w/ low threshold to increase Present on Admission?: Yes History of Present Illness Reason for Consultation: hyponatremia, volume overload, CKD4 Requesting Physician: Dr Stahl Attending Physician: Magdiel Stahl, DO History of Present Illness Complex 78 y/o F w/ CKD 4, chronic systolic HF whom I'm asked to see for hyponatremia after she was admitted today for sNa low 120s and volume overload. Other PMH includes IDDM 2, LBBB, obesity, hypothyroid and as below. Pt admitted here earlier this month for a week with hypoglycemia, frequent falls and d/c to rehab. Report of wt gain at rehab 25 lb (not standing wts) and increasing edema, abd girth. Her creatinine stayed at baseline at rehab but serum sodium has been in 120-123 range for past 48-72 hrs, 123 yesterday, 120 today per report. Was given a L of NS at [facility] after OP torsemide was held w/o improvement. Ongoing generalized weakness has limited pt ability to participate in rehab. Her presenting sNa here at 1430 is 119 w/ K 5.2, creat 2.6, BG 57. On RA but CXR w/ vascular congestion. She received 60 mg IV lasix x 1. TTE performed >> c/w worse/ more prominent RV overload; EF 20-25%. pt is very [place] which limits ROS > states her breathing is "tight," c/o generalized itch and N. Allergies Allergy/AdvReac Type Severity Reaction Status Date / Time Aminoglycosides Allergy Intermediate Rash Verified 03/01/19 15:33 neomycin Allergy Intermediate Rash Verified 03/01/19 15:33 polymyxin B Allergy Intermediate Rash Verified 03/01/19 15:33 iodine Allergy Unknown Unknown Verified 03/01/19 15:33 promethazine Allergy Unknown Unknown Verified 03/01/19 15:33 aminophylline Allergy Unknown Verified 03/01/19 15:33 fish derived Allergy Anaphylaxis Verified 03/01/19 15:33 nystatin Allergy Unknown Verified 03/01/19 15:33 adhesive AdvReac Mild Tape - Verified 03/01/19 15:33 bumps alcohol AdvReac BUMPS ON Verified 03/01/19 15:33 SKIN W/ ETOH WIPES Home Medications Home Medications Medication Instructions Recorded Confirmed Type clotrimazole-betamethasone 1 applic TOPICAL BID PRN 05/30/18 03/02/19 History multivitamin 1 tab PO QAM 05/30/18 03/02/19 History torsemide 20 mg PO QAM 06/26/18 03/02/19 History benzonatate 100 mg PO TID PRN 02/12/19 03/02/19 History metoprolol succinate 25 mg PO QAM 02/12/19 03/02/19 History acetaminophen [Tylenol] 650 mg PO QID PRN 03/01/19 03/02/19 History atorvastatin 10 mg PO HS 03/01/19 03/02/19 History bisacodyl 10 mg VA DAILY PRN 03/01/19 03/02/19 History docusate sodium [Stool Softener] 100 mg PO BID PRN 03/01/19 03/02/19 History heparin (porcine) 5,000 unit SUBCUT Q8H 03/01/19 03/02/19 History insulin NPH and regular human 20 unit SUBCUT BID 03/01/19 03/02/19 History [Humulin 70/30 U-100 Insulin] pantoprazole 40 mg PO DAILY 03/01/19 03/02/19 History polyethylene glycol 3350 [Miralax] 17 g PO DAILY PRN 03/01/19 03/02/19 History sennosides [Senokot] 8.6 mg PO DAILY PRN 03/01/19 03/02/19 History sodium phosphates [Fleet Enema] 118 ml VA DAILY PRN 03/01/19 03/02/19 History gabapentin 100 mg PO BID 03/02/19 03/02/19 History levothyroxine 75 mcg PO DAILYBB 03/02/19 03/02/19 History Patient History Medical History Systolic heart failure (Chronic) Weakness (Chronic) Fall (Resolved) Frequent falls (Chronic) Hyperlipidemia (Chronic) Peripheral neuropathy (Chronic) GERD (gastroesophageal reflux disease) (Chronic) controlled Osteoarthritis (Chronic) Chronic back pain (Chronic) Anemia (Chronic) LBBB (left bundle branch block) (Chronic) chronic Breast cancer (Resolved) 2010 radiation. +chemo per PCP records Morbid obesity (Chronic) Hypothyroidism (Chronic) Diastolic CHF (Chronic) Non-ischemic cardiomyopathy (Chronic) Diabetes mellitus type 2, insulin dependent (Chronic) LBBB (left bundle branch block) (Chronic) CKD (chronic kidney disease) stage 4, GFR 15-29 ml/min (Chronic) Surgical History History of cardiac cath (Chronic) 06/2018: Mild, non-obstructive coronary artery disease. No culprit lesions identified to explain symptoms or abnormal stress test. The mid LAD has a 40% stenosis and minor luminal irregularities elsewhere.The LVEDP was 19 mmHg which is mildly elevated. AVF (arteriovenous fistula) (Chronic) History of cataract surgery (Chronic) History of appendectomy (Chronic) Hx of lumpectomy (Chronic) Right breast Family History Father Diabetes Social History Preferred Language: [place] Irish Communication Ability: Effective Visual Impairment: No Limitations Hearing Ability: Hard of Hearing Authorization Representative Required: No Beliefs That Will Affect Care: None marital status: Current Living Situation: Alone Other Information That Helps Us Care for You: No Feels Safe at Home: Yes Safety Concerns: Feels Safe At This Time Smoking Status: Never smoker Second Hand Exposure: No ; Hx Alcohol Use: No Hx Substance Use: No Review of Systems Review of Systems: All systems reviewed & are unremarkable except as noted in HPI & below limited by pt hearing Physical Exam Constitutional: well developed, well nourished and + morbidly obese very [place]; on RA Eyes: EOM intact bilaterally ENMT: Ears: no external ear abnormality Nose: no external nose abnormality Mouth: + dry oral mucous membranes Neck: no nuchal rigidity Respiratory: + labored breathing Auscultation: + diminished lung sounds; no crackles and no wheezes Cardiovascular: Rate/Rhythm: regular rate and regular rhythm Extremities: + edema (anasarca) and + AV fistula (+ t/b) Gastrointestinal (Abdomen): Inspection/Auscultation: normal bowel sounds Percussion/Palpation: abdomen soft; abdomen nontender anasarca Musculoskeletal: Extremities: + abnormal strength (generalized weakness) Skin: no rashes, warm and dry Neurologic: rae minimally, fluent but limited speech, no tremor Psychiatric: Orientation: alert, oriented to person and oriented to place Genitourinary: watters w/ ample urine Results & Data Vital Signs (Past 12 Hours) Vital Signs Temp Pulse Pulse Resp BP Pulse Ox 03/02/19 16:12 35.5 C L 66 18 131/56 L 98 03/02/19 15:25 65 03/02/19 13:47 66 03/02/19 12:54 36.3 C L 22 118/68 97 Laboratory Results 03/02/19 14:28 03/02/19 14:28 Diagnostic Findings TTE mild CLVH, EF 20-25%, restrictive filling. m-mod TR; RV sbp wnl (1) Volume overload Hypervolemia type: other Qualified Code(s): E87.79 - Other fluid overload
[2019-03-02] MEDS ORDERED: ONDANSETRON INJ 2 MG/ML 2 ML VIAL IV ONE (18:41)
[2019-03-02] MEDS: ATORVASTATIN 10 MG TAB PO SCH (20:08)
[2019-03-02] MEDS: GABAPENTIN 100 MG CAP PO SCH (20:09)
[2019-03-02] MEDS: FUROSEMIDE 60 MG in SYRINGE 0 ML IV SCH (20:10)
[2019-03-02 20:34] LABS: BUN Creatinine Ratio 33.3 (10-20); Calcium 9.1 mg/dl (8.5-10.1); Creatinine Clr Calc Pharmacy 21.7 ml/min; Est GFR (African American) 19.8; Est GFR (Non-African American) 17.1; Potassium 5.4 mmol/L (3.5-5.1)
[2019-03-02] MEDS ORDERED: MICONAZOLE NITRATE POWDER 43 GM EXT PRN (23:40)
[2019-03-03 01:21] LABS: BUN Creatinine Ratio 31.5 (10-20); Calcium 9.2 mg/dl (8.5-10.1); Creatinine Clr Calc Pharmacy 20.9 ml/min; Est GFR (African American) 18.9; Est GFR (Non-African American) 16.3; Potassium 5.5 mmol/L (3.5-5.1)
[2019-03-03] MEDS: HEPARIN SOD 5,000 UNIT/0.5 ML VIAL SQ SCH ×3 (06:11→21:27)
[2019-03-03] MEDS: FUROSEMIDE 60 MG in SYRINGE 0 ML IV SCH (06:21)
[2019-03-03 06:28] LABS: Hematocrit (blood only) 37.1 % (37-47); Hemoglobin 12.3 g/dL (12.0-16.0); Mean Corpuscular Hemoglobin 29.7 pg (25-34); Mean Corpuscular Hgb Conc 33.2 g/dL (32-36); Mean Corpuscular Volume 89.6 fL (80-100); Mean Platelet Volume 10.4 fL (7.4-10.4); Platelet Count 199 K/uL (130-400); RDW Coefficient of Variation 20.3 % (11.5-14.5); RDW Standard Deviation 66.6 fL (36.4-46.3); Red Blood Count 4.14 M/uL (4.2-5.4)
[2019-03-03] MEDS ORDERED: LEVOTHYROXINE SODIUM 75 MCG TABLET PO SCH (06:30)
[2019-03-03 07:14] LABS: Calcium 8.6 mg/dl (8.5-10.1); Creatinine Clr Calc Pharmacy 19.8 ml/min; Est GFR (African American) 17.4; Magnesium 2.7 mg/dl (1.8-2.4); Potassium 5.8 mmol/L (3.5-5.1)
[2019-03-03] MEDS ORDERED: ALBUTEROL 0.083% NEBU SOLN 3 ML VIAL NEB PRN (07:41)
--- NOTE | 2019-03-03 08:02 | XRay Report ---
XR chest 1V portable HISTORY: Shortness of breath. COMPARISON: Chest 03/02/2019. FINDINGS: There are low lung volumes. The heart remains enlarged. Postoperative changes within the pr oximal left humerus. Elevation of the right hemidiaphragm. Right mid to lower lung zone airspace opac ities and a right pleural effusion persist. There may be a trace left pleural effusion. There is mild central pulmonary vascular congestion without overt edema. IMPRESSION: 1. No significant change in the bilateral pleural effusions and right mid to lower lung zone airspace opacity. 2. Mild central pulmonary vascular congestion without overt edema. Electronically signed by: Cristóbal Means M.D. 03/03/2019 8:01 AM
[2019-03-03] MEDS ORDERED: POLYETHYLENE (MIRALAX) 17 GM PACK PO ONE (08:34)
[2019-03-03 08:37] LABS: Estimated Average Glucose 143 mg/dl; Hemoglobin A1C 6.6 % (4.5-5.6)
[2019-03-03] MEDS ORDERED: CALCIUM GLUCONATE 10% 1,000 MG in SODIUM CHLORIDE 0.9% 50 ML IV ONE (08:45)
[2019-03-03] MEDS ORDERED: PANTOprazole 40 MG TAB PO SCH (09:00)
[2019-03-03] MEDS ORDERED: METOPROLOL SUCC 25MG EXT REL TAB PO SCH (09:00)
[2019-03-03] MEDS ORDERED: MULTIVITAMIN TAB PO SCH (09:00)
[2019-03-03] MEDS: GABAPENTIN 100 MG CAP PO SCH ×2 (09:23→21:28)
[2019-03-03] MEDS ORDERED: FUROSEMIDE 120 MG in SYRINGE 0 ML IV ONE (09:30)
--- NOTE | 2019-03-03 10:00 | Nephrology Progress Note ---
Date of Service March 03, 2019 Assessment & Plan (1) Hyponatremia: sNa 119 on presentation 03/02. Sodium trended down to 117. hypervolemic hypotonic hyponatremia, though would expect far lower serum osms w/ this degree of hyponatremia. TSH elevated but improving (44 earlier this month > 21) after med adjustment. Not symptomatic (ie no seizures, no altered MS, no emesis); also chronic condition (ie, present > 48 hrs) Target rate of rise is 6 and 24 hours. -Give Lasix 120 mg bolus and start Lasix drip at 20 mg/h. -FR 1.2L, <2 gm Na diet -strict I/O -repeat bmp ordered/in process for 1800 (2) CKD (chronic kidney disease) stage 4, GFR 15-29 ml/min: baseline creatinine in mid 2's. at baseline. has mature avf. 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 If patient does not respond to Lasix drip, she will need dialysis. I discussed dialysis. Patient is agreeable to dialysis. She has a fistula which has never been used. (3) Volume overload: Patient with gross volume overload and pulmonary edema. We will try aggressive diuresis with Lasix drip. If patient does not improve, will start dialysis for volume management. Subjective Patient complains of shortness of breath. She is extremely hard of hearing. No nausea or vomiting. She complains of body swelling. Urine output still minimal. Sodium downtrending at 117. Review of Systems Review of Systems: All systems reviewed & are unremarkable except as noted in HPI & below Physical Exam Physical Exam: General exam: Appears comfortable on oxygen by nasal cannula, no acute distress HEENT: Pupils are equal and reactive to light Neck: No JVD, neck is supple trachea is midline Respiratory system: Reduced breath sounds bilaterally. Gastrointestinal: Abdomen is soft, non distended, non tender, bowel sounds are present CVS: Regular rate and rhythm. No murmurs, rubs or gallops Musculoskeletal: No joint or muscle tenderness Extremities: Non tender, 2+ edema, peripheral pulses are present Neuro: Oriented, no tremors, no focal neurological deficits Skin: No rashes Access: AV fistula in the left upper arm with good bruit but no thrill Results & Data Vital Signs (Past 12 Hours) Vital Signs Temp Pulse Pulse Resp BP Pulse Ox 03/03/19 08:06 58 L 18 97 03/03/19 07:00 36.3 C L 66 22 130/71 90 03/03/19 04:00 36.9 C 66 18 142/73 H 90 03/03/19 00:06 72 03/02/19 22:19 36.4 C L 81 20 145/76 H 94 Laboratory Results Laboratory Results - last 24 hr 03/02/19 03/02/19 03/02/19 13:03 13:30 13:30 WBC RBC Hgb Hct MCV MCH MCHC RDW Std Deviation RDW Coeff of Archana Plt Count MPV Immature Gran % (Auto) Neut % (Auto) Lymph % (Auto) [place] % (Auto) Eos % (Auto) Baso % (Auto) Immature Gran # (Auto) Neut # (Auto) Lymph # (Auto) [place] # (Auto) Eos # (Auto) Baso # (Auto) Anisocytosis Acanthocytes (Spur) Schistocytes PT INR APTT PTT Ratio Sodium Potassium Chloride Carbon Dioxide Anion Gap BUN Creatinine Est Cr Clr Drug Dosing Est GFR ( Amer) Est GFR (Non-Af Amer) BUN/Creatinine Ratio Glucose POC Glucose 80 Estimat Average Glucose Hemoglobin A1c Osmolality Calcium Phosphorus Magnesium Total Bilirubin AST ALT Alkaline Phosphatase Troponin I NT-Pro-B Natriuret Pep Total Protein Albumin Globulin Albumin/Globulin Ratio TSH Urine Color Urine Appearance Urine pH Ur Specific Nucla Urine Protein Urine Glucose (UA) Urine Ketones Urine Blood Urine Nitrite Urine Bilirubin Urine Urobilinogen Ur Leukocyte Esterase Urine Osmolality 207 L Ur Random Sodium Nasal Screen MRSA (PCR) Negative 03/02/19 03/02/19 03/02/19 13:30 13:30 14:28 WBC 5.65 RBC 4.14 L Hgb 12.3 Hct 36.7 L MCV 88.6 MCH 29.7 MCHC 33.5 RDW Std Deviation 65.5 H RDW Coeff of Archana 20.1 H Plt Count 205 MPV 10.3 Immature Gran % (Auto) 0.2 Neut % (Auto) 62.5 Lymph % (Auto) 15.0 [place] % (Auto) 12.6 Eos % (Auto) 8.8 Baso % (Auto) 0.9 Immature Gran # (Auto) 0.01 Neut # (Auto) 3.53 Lymph # (Auto) 0.85 L [place] # (Auto) 0.71 H Eos # (Auto) 0.50 Baso # (Auto) 0.05 Anisocytosis Present Acanthocytes (Spur) 1+ Schistocytes 1+ PT INR APTT PTT Ratio Sodium Potassium Chloride Carbon Dioxide Anion Gap BUN Creatinine Est Cr Clr Drug Dosing Est GFR ( Amer) Est GFR (Non-Af Amer) BUN/Creatinine Ratio Glucose POC Glucose Estimat Average Glucose Hemoglobin A1c Osmolality Calcium Phosphorus Magnesium Total Bilirubin AST ALT Alkaline Phosphatase Troponin I NT-Pro-B Natriuret Pep Total Protein Albumin Globulin Albumin/Globulin Ratio TSH Urine Color Yellow Urine Appearance Clear Urine pH 5.5 Ur Specific Nucla 1.013 Urine Protein Negative Urine Glucose (UA) Negative Urine Ketones Negative Urine Blood Negative Urine Nitrite Negative Urine Bilirubin Negative Urine Urobilinogen Negative Ur Leukocyte Esterase Negative Urine Osmolality Ur Random Sodium 7 Nasal Screen MRSA (PCR) 03/02/19 03/02/19 03/02/19 14:28 14:28 14:28 WBC RBC Hgb Hct MCV MCH MCHC RDW Std Deviation RDW Coeff of Archana Plt Count MPV Immature Gran % (Auto) Neut % (Auto) Lymph % (Auto) [place] % (Auto) Eos % (Auto) Baso % (Auto) Immature Gran # (Auto) Neut # (Auto) Lymph # (Auto) [place] # (Auto) Eos # (Auto) Baso # (Auto) Anisocytosis Acanthocytes (Spur) Schistocytes PT 11.9 INR 1.2 H APTT 34.8 H PTT Ratio 1.3 Sodium 119 L* Potassium 5.2 H Chloride 84 L Carbon Dioxide 26 Anion Gap 9.0 BUN 80 H Creatinine 2.57 H Est Cr Clr Drug Dosing 21.6 Est GFR ( Amer) 19.7 Est GFR (Non-Af Amer) 17.0 BUN/Creatinine Ratio 31.0 H Glucose 57 L POC Glucose Estimat Average Glucose Hemoglobin A1c Osmolality 276 L Calcium 8.6 Phosphorus 3.8 Magnesium 2.7 H Total Bilirubin 1.8 H AST 47 H ALT 36 Alkaline Phosphatase 210 H Troponin I 0.045 NT-Pro-B Natriuret Pep 7809 H Total Protein 7.1 Albumin 3.2 L Globulin 3.9 Albumin/Globulin Ratio 0.8 L TSH 21.200 H Urine Color Urine Appearance Urine pH Ur Specific Nucla Urine Protein Urine Glucose (UA) Urine Ketones Urine Blood Urine Nitrite Urine Bilirubin Urine Urobilinogen Ur Leukocyte Esterase Urine Osmolality Ur Random Sodium Nasal Screen MRSA (PCR) 03/02/19 03/02/1903/02/19 15:39 15:42 16:00 WBC RBC Hgb Hct MCV MCH MCHC RDW Std Deviation RDW Coeff of Archana Plt Count MPV Immature Gran % (Auto) Neut % (Auto) Lymph % (Auto) [place] % (Auto) Eos % (Auto) Baso % (Auto) Immature Gran # (Auto) Neut # (Auto) Lymph # (Auto) [place] # (Auto) Eos # (Auto) Baso # (Auto) Anisocytosis Acanthocytes (Spur) Schistocytes PT INR APTT PTT Ratio Sodium Potassium Chloride Carbon Dioxide Anion Gap BUN Creatinine Est Cr Clr Drug Dosing Est GFR ( Amer) Est GFR (Non-Af Amer) BUN/Creatinine Ratio Glucose POC Glucose 65 L* 60 L* 56 L* Estimat Average Glucose Hemoglobin A1c Osmolality Calcium Phosphorus Magnesium Total Bilirubin AST ALT Alkaline Phosphatase Troponin I NT-Pro-B Natriuret Pep Total Protein Albumin Globulin Albumin/Globulin Ratio TSH Urine Color Urine Appearance Urine pH Ur Specific Nucla Urine Protein Urine Glucose (UA) Urine Ketones Urine Blood Urine Nitrite Urine Bilirubin Urine Urobilinogen Ur Leukocyte Esterase Urine Osmolality Ur Random Sodium Nasal Screen MRSA (PCR) 03/02/19 03/02/19 03/02/19 16:18 19:06 19:38 WBC RBC Hgb Hct MCV MCH MCHC RDW Std Deviation RDW Coeff of Archana Plt Count MPV Immature Gran % (Auto) Neut % (Auto) Lymph % (Auto) [place] % (Auto) Eos % (Auto) Baso % (Auto) Immature Gran # (Auto) Neut # (Auto) Lymph # (Auto) [place] # (Auto) Eos # (Auto) Baso # (Auto) Anisocytosis Acanthocytes (Spur) Schistocytes PT INR APTT PTT Ratio Sodium 119 L* Potassium 5.4 H Chloride 84 L Carbon Dioxide 26 Anion Gap 9.0 BUN 85 H Creatinine 2.56 H Est Cr Clr Drug Dosing 21.7 Est GFR ( Amer) 19.8 Est GFR (Non-Af Amer) 17.1 BUN/Creatinine Ratio 33.3 H Glucose 65 L POC Glucose 95 75 Estimat Average Glucose Hemoglobin A1c Osmolality Calcium 9.1 Phosphorus Magnesium Total Bilirubin AST ALT Alkaline Phosphatase Troponin I NT-Pro-B Natriuret Pep Total Protein Albumin Globulin Albumin/Globulin Ratio TSH Urine Color Urine Appearance Urine pH Ur Specific Nucla Urine Protein Urine Glucose (UA) Urine Ketones Urine Blood Urine Nitrite Urine Bilirubin Urine Urobilinogen Ur Leukocyte Esterase Urine Osmolality Ur Random Sodium Nasal Screen MRSA (PCR) 03/02/19 03/02/19 03/02/19 20:22 20:23 21:03 WBC RBC Hgb Hct MCV MCH MCHC RDW Std Deviation RDW Coeff of Archana Plt Count MPV Immature Gran % (Auto) Neut % (Auto) Lymph % (Auto) [place] % (Auto) Eos % (Auto) Baso % (Auto) Immature Gran # (Auto) Neut # (Auto) Lymph # (Auto) [place] # (Auto) Eos # (Auto) Baso # (Auto) Anisocytosis Acanthocytes (Spur) Schistocytes PT INR APTT PTT Ratio Sodium Potassium Chloride Carbon Dioxide Anion Gap BUN Creatinine Est Cr Clr Drug Dosing Est GFR ( Amer) Est GFR (Non-Af Amer) BUN/Creatinine Ratio Glucose POC Glucose 56 L* 54 L* 96 Estimat Average Glucose Hemoglobin A1c Osmolality Calcium Phosphorus Magnesium Total Bilirubin AST ALT Alkaline Phosphatase Troponin I NT-Pro-B Natriuret Pep Total Protein Albumin Globulin Albumin/Globulin Ratio TSH Urine Color Urine Appearance Urine pH Ur Specific Nucla Urine Protein Urine Glucose (UA) Urine Ketones Urine Blood Urine Nitrite Urine Bilirubin Urine Urobilinogen Ur Leukocyte Esterase Urine Osmolality Ur Random Sodium Nasal Screen MRSA (PCR) 03/02/19 03/03/19 03/03/19 23:38 00:17 04:17 WBC RBC Hgb Hct MCV MCH MCHC RDW Std Deviation RDW Coeff of Archana Plt Count MPV Immature Gran % (Auto) Neut % (Auto) Lymph % (Auto) [place] % (Auto) Eos % (Auto) Baso % (Auto) Immature Gran # (Auto) Neut # (Auto) Lymph # (Auto) [place] # (Auto) Eos # (Auto) Baso # (Auto) Anisocytosis Acanthocytes (Spur) Schistocytes PT INR APTT PTT Ratio Sodium 117 L* Potassium 5.5 H Chloride 82 L Carbon Dioxide 28 Anion Gap 8.0 BUN 84 H Creatinine 2.66 H Est Cr Clr Drug Dosing 20.9 Est GFR ( Amer) 18.9 Est GFR (Non-Af Amer) 16.3 BUN/Creatinine Ratio 31.5 H Glucose 94 POC Glucose 95 128 H Estimat Average Glucose Hemoglobin A1c Osmolality Calcium 9.2 Phosphorus Magnesium Total Bilirubin AST ALT Alkaline Phosphatase Troponin I NT-Pro-B Natriuret Pep Total Protein Albumin Globulin Albumin/Globulin Ratio TSH Urine Color Urine Appearance Urine pH Ur Specific Nucla Urine Protein Urine Glucose (UA) Urine Ketones Urine Blood Urine Nitrite Urine Bilirubin Urine Urobilinogen Ur Leukocyte Esterase Urine Osmolality Ur Random Sodium Nasal Screen MRSA (PCR) 03/03/19 03/03/19 03/03/19 05:42 05:42 05:42 WBC 12.30 H RBC 4.14 L Hgb 12.3 Hct 37.1 MCV 89.6 MCH 29.7 MCHC 33.2 RDW Std Deviation 66.6 H RDW Coeff of Archana 20.3 H Plt Count 199 MPV 10.4 Immature Gran % (Auto) Neut % (Auto) Lymph % (Auto) [place] % (Auto) Eos % (Auto) Baso % (Auto) Immature Gran # (Auto) Neut # (Auto) Lymph # (Auto) [place] # (Auto) Eos # (Auto) Baso # (Auto) Anisocytosis Acanthocytes (Spur) Schistocytes PT INR APTT PTT Ratio Sodium 117 L* Potassium 5.8 H Chloride 82 L Carbon Dioxide 25 Anion Gap 10.0 BUN 86 H Creatinine 2.85 H Est Cr Clr Drug Dosing 19.8 Est GFR ( Amer) 17.4 Est GFR (Non-Af Amer) 15.0 BUN/Creatinine Ratio 30.0 H Glucose 116 H POC Glucose Estimat Average Glucose 143 Hemoglobin A1c 6.6 H Osmolality Calcium 8.6 Phosphorus Magnesium 2.7 H Total Bilirubin AST ALT Alkaline Phosphatase Troponin I NT-Pro-B Natriuret Pep Total Protein Albumin Globulin Albumin/Globulin Ratio TSH Urine Color Urine Appearance Urine pH Ur Specific Nucla Urine Protein Urine Glucose (UA) Urine Ketones Urine Blood Urine Nitrite Urine Bilirubin Urine Urobilinogen Ur Leukocyte Esterase Urine Osmolality Ur Random Sodium Nasal Screen MRSA (PCR) 03/03/19 07:48 WBC RBC Hgb Hct MCV MCH MCHC RDW Std Deviation RDW Coeff of Archana Plt Count MPV Immature Gran % (Auto) Neut % (Auto) Lymph % (Auto) [place] % (Auto) Eos % (Auto) Baso % (Auto) Immature Gran # (Auto) Neut # (Auto) Lymph # (Auto) [place] # (Auto) Eos # (Auto) Baso # (Auto) Anisocytosis Acanthocytes (Spur) Schistocytes PT INR APTT PTT Ratio Sodium Potassium Chloride Carbon Dioxide Anion Gap BUN Creatinine Est Cr Clr Drug Dosing Est GFR ( Amer) Est GFR (Non-Af Amer) BUN/Creatinine Ratio Glucose POC Glucose 134 H Estimat Average Glucose Hemoglobin A1c Osmolality Calcium Phosphorus Magnesium Total Bilirubin AST ALT Alkaline Phosphatase Troponin I NT-Pro-B Natriuret Pep Total Protein Albumin Globulin Albumin/Globulin Ratio TSH Urine Color Urine Appearance Urine pH Ur Specific Nucla Urine Protein Urine Glucose (UA) Urine Ketones Urine Blood Urine Nitrite Urine Bilirubin Urine Urobilinogen Ur Leukocyte Esterase Urine Osmolality Ur Random Sodium Nasal Screen MRSA (PCR) (1) Volume overload Hypervolemia type: other Qualified Code(s): E87.79 - Other fluid overload
[2019-03-03] MEDS: FUROSEMIDE 100 MG in DEXTROSE 5% 90 ML IV SCH ×3 (10:14→19:34)
--- NOTE | 2019-03-03 11:19 | Cardiology Progress Note ---
Date of Service March 03, 2019 Assessment & Plan (1) Acute on chronic systolic and diastolic heart failure, NYHA class 4: (2) Hyponatremia: (3) Hyperkalemia: (4) Non-ischemic cardiomyopathy: (5) Cardiorenal syndrome: (6) CKD (chronic kidney disease) stage 4, GFR 15-29 ml/min: (7) LBBB (left bundle branch block): 78-year-old female with nonischemic cardiomyopathy presents to the hospital volume overload, marked hyponatremia, hyperkalemia, and acute on chronic renal insufficiency. Nephrology recommendations appreciated. Patient currently on IV furosemide infusion. Monitor urine output closely as well as serial electrolytes. As per nephrology notes, consideration for hemodialysis today pending clinical response. Unfortunately, from a cardiovascular perspective there is little to add medically at this time. Continue low-dose beta-walter and monitor telemetry. Management of electrolyte derangement as per nephrology. Subjective Patient seen and examined at the bedside. Dyspnea improving subjectively, however, minimal diuresis, 210 cc noted overnight. Intravenous Lasix infusion ordered by nephrology. Sodium remains below 120 mg/DL, hyperkalemia persists. Patient denies dyspnea at rest. No chest discomfort. Telemetry demonstrates sinus rhythm without significant bradycardia or sustained dysrhythmias. Patient denies dizziness, lightheadedness, or palpitations. Offers no other concerns/complaints at this time. Review of Systems Review of Systems: All systems reviewed & are unremarkable except as noted in HPI & below Physical Exam Physical Exam: General: NAD, AAO x3, morbid obesity. HEENT: Normocephalic. Atraumatic. Conjunctiva pink, no scleral icterus. Neck: No carotid bruits, the carotid upstrokes are brisk. No JVD. No HJR Heart: Regular normal S-1 and S-2 no S-3 or S-4 gallop. No murmurs or rub appreciated. PMI is not displaced. No RV heave. Lungs: Absent breath sounds at the bases bilaterally. Scant crackles in the mid lung osborne bilaterally. No rhonchi or wheeze. Abdomen: Normal bowel sounds. Soft. Nontender. No masses or organomegaly. No abdominal bruits. Extremities: 1-2+ bilateral pitting pretibial edema. Pulses: radial=2/4. Neuro: Cranial nerves grossly intact. No focal motor deficit. Results & Data Vital Signs (Past 12 Hours) Vital Signs Temp Pulse Pulse Resp BP Pulse Ox 03/03/19 10:53 79 03/03/19 08:06 58 L 18 97 03/03/19 07:00 36.3 C L 66 22 130/71 90 03/03/19 04:00 36.9 C 66 18 142/73 H 90 03/03/19 00:06 72 (1) Cardiorenal syndrome Heart failure presence: with heart failure Hypertensive chronic kidney disease stage: stage 1-4 or unspecified chronic kidney disease Qualified Code(s): I13.0 - Hypertensive heart and chronic kidney disease with heart failure and stage 1 through stage 4 chronic kidney disease, or unspecified chronic kidney disease
[2019-03-03] MEDS ORDERED: CALCIUM CARBONATE 500 MG CHEWABLE TAB PO PRN (11:25)
[2019-03-03] MEDS ORDERED: ONDANSETRON INJ 2 MG/ML 2 ML VIAL IV STA (12:30)
[2019-03-03] MEDS ORDERED: GLUCOSE 40% GEL 15 GM TUBE PO PRN (14:33)
[2019-03-03] MEDS ORDERED: GLUCOSE 10 TABS/TUBE PO PRN (14:33)
[2019-03-03] MEDS ORDERED: GLUCAGON FOR INJ 1 MG VIAL SQ PRN (14:33)
[2019-03-03] MEDS ORDERED: CARBOHYDRATES FOR HYPOGLYCEMIA PO PRN (14:33)
[2019-03-03] MEDS ORDERED: DEXTROSE 50% 50 ML SYRINGE IV PRN (14:33)
--- NOTE | 2019-03-03 14:35 | Hospitalist Progress Note ---
Date of Service March 03, 2019 Assessment & Plan (1) Acute on chronic heart failure: Acute on chronic systolic heart failure Volume overload In setting of CKD H/O nonischemic systolic heart failure EF: 20 to 25%, severe global hypokinesis dyskinesis of the interventricular septum on echo CXR:Trace left and moderate right pleural effusions with right midlung and right lung base consolidation. Correlate clinically to exclude pneumonia. Cardiomegaly with pulmonary vascular congestion. Patient's torsemide was decreased at [facility] secondary to hyponatremia Hold p.o. diuretics Continue IV Lasix drip Appreciate cardiology, nephrology input If no improvement, patient will need dialysis Monitor electrolytes, volume status, daily weight, I/Os Abnormal CXR CXR:Right midlung and right lung base consolidation ? Pneumonia Minimal leukocytosis Check procalcitonin, if elevated will start on antibiotics Afebrile (2) Hyponatremia: Hypervolemic Hypotonic hyponatremia Secondary to above Insetting of Hypothyroidism, Volume Overload Continue fluid restriction Monitor sodium levels Continue diuresis as above Appreciate nephrology input (3) CKD (chronic kidney disease) stage 4, GFR 15-29 ml/min: Not initially on dialysis yet. Has AV fistula. Follows with Dr Coughlin Baseline Cr:~2.3-2.7 Expect creatinine levels to worsen while on IV diuretics Monitor renal function Hyperkalemia Likely due to CKD Avoid potassium supplements Received calcium gluconate On IV Lasix drip Monitor electrolytes (4) Diabetes mellitus type 2, insulin dependent: H/O hypoglycemia Hold Home insulin 70/30 Monitor BSGs ISS for now No tight blood glucose control secondary to hypoglycemic episodes (5) Hypothyroidism: TSH: 21. Was 44 Levothyroxine increased from 50mcg to 75cmg on 01/23/19 Continue levothyroxine Needs repeat testing of thyroid function as outpatient (6) Hyperlipidemia: Continue atorvastatin (7) GERD (gastroesophageal reflux disease): Continue PPI DVT Px: Heparin SQ Code Status Full Code Subjective Patient is seen and examined at bedside Shortness of breath improved Continue IV Lasix drip States having an episode of vomiting earlier today Denies any chest pain, dizziness, abdominal pain, cough Requiring supplemental oxygen to maintain saturations If shows no improvement, will need dialysis Offers no other complaints Review of Systems Review of Systems: All systems reviewed & are unremarkable except as noted in HPI & below Physical Exam Physical Exam: Physical Exam: Vitals signs as noted above General Appearance:Morbidly Obese, no apparent distress Head: normocephalic, Atraumatic Eyes: normal inspection, EOMI Neck: supple, Trachea midline Respiratory/Chest: Decreased breath sounds, CTA Cardiovascular: S1, S2, No murmur Abdomen/GI:Soft, Non tender, Bowel sounds present Extremities/Musculoskelatal:normal inspection, B/L LE edema Neurologic/Psych:AAOX3, grossly no focal neurological deficits Skin: normal color, warm Results & Data Vital Signs (Past 12 Hours) Vital Signs Temp Pulse Pulse Resp BP Pulse Ox 03/03/19 10:53 79 03/03/19 08:06 58 L 18 97 03/03/19 07:00 36.3 C L 66 22 130/71 90 03/03/19 04:00 36.9 C 66 18 142/73 H 90 Laboratory Results Short CBC 03/02/19 03/03/19 Range/Units 14:28 05:42 WBC 5.65 12.30 H (4.8-10.8) K/uL Hgb 12.3 12.3 (12.0-16.0) g/dL Hct 36.7 L 37.1 (37-47) % Plt Count 205 199 (130-400) K/uL BMP 03/02/19 03/02/19 03/03/19 14:28 19:38 00:17 Sodium 119 L* 119 L* 117 L* Potassium 5.2 H 5.4 H 5.5 H Chloride 84 L 84 L 82 L Carbon Dioxide 26 26 28 BUN 80 H 85 H 84 H Creatinine 2.57 H 2.56 H 2.66 H Glucose 57 L 65 L 94 Calcium 8.6 9.1 9.2 03/03/19 05:42 Sodium 117 L* Potassium 5.8 H Chloride 82 L Carbon Dioxide 25 BUN 86 H Creatinine 2.85 H Glucose 116 H Calcium 8.6 Cardiac Enzymes 03/02/19 Range/Units 14:28 Troponin I 0.045 (0-0.045) ng/ml Liver Function 03/02/19 Range/Units 14:28 Total Bilirubin 1.8 H (0.2-1) mg/dl AST 47 H (15-37) U/L ALT 36 (12-78) U/L Alkaline Phosphatase 210 H (45-117) U/L Albumin 3.2 L (3.4-5.0) gm/dl
[2019-03-03] MEDS ORDERED: FUROSEMIDE 40 MG/4 ML VIAL IV STA (17:04)
[2019-03-03] MEDS: INSULIN ASPART 100 UNITS/ML 3 ML PEN SC SCH ×2 (17:35→21:29)
[2019-03-03] MEDS ORDERED: FUROSEMIDE 160 MG in SYRINGE 0 ML IV ONE (17:45)
[2019-03-03 19:37] LABS: BUN Creatinine Ratio 28.2 (10-20); Calcium 8.7 mg/dl (8.5-10.1); Creatinine Clr Calc Pharmacy 18.6 ml/min; Est GFR (African American) 16.1; Est GFR (Non-African American) 13.9
[2019-03-03] MEDS: ATORVASTATIN 10 MG TAB PO SCH (21:28)
--- NOTE | 2019-03-03 22:16 | Hospitalist Progress Note ---
Date of Service March 03, [address] Auguste (office machine technician ed special education teacher) recommending transfer to [facility] for emergent hemodialysis given hypervolemia, worsening kidney function not responsive to Lasix drip. Patient kindly accepted for transfer by Dr. Larkin ([facility] flange machine operator ed special education teacher). Patient and son agreeable to plan of care. Results & Data Vital Signs (Past 12 Hours) Vital Signs Temp Pulse Pulse Resp BP Pulse Ox 03/03/19 19:23 36.7 C 72 20 147/74 H 98 03/03/19 15:15 36.7 C 61 22 132/72 95 03/03/19 14:15 70 114/72 03/03/19 13:15 75 121/65 03/03/19 12:15 66 116/71 03/03/19 11:15 66 109/68 03/03/19 11:00 36.3 C L 67 20 116/58 L 96 03/03/19 10:53 79 03/03/19 10:45 72 123/72 03/03/19 10:30 76 129/92
[2019-03-03] MEDS ORDERED: CALCIUM GLUCONATE 10% 1,000 MG in SODIUM CHLORIDE 0.9% 50 ML IV STA (22:31)
[2019-03-03] MEDS ORDERED: ALBUT/IPRATROP 3MG/0.5MG NEB 3 ML VIAL NEB STA (22:34)
[2019-03-03] MEDS ORDERED: DEXTROSE 50% 50 ML SYRINGE IV ONE (23:00)
[2019-03-03] MEDS ORDERED: INSULIN HUMAN REGULAR PER UNIT 10 UNITS in SYRINGE 9.9 ML IV ONE (23:00)
--- NOTE | 2019-03-03 23:31 | Discharge Summary ---
Date of Service March 03, 2019 Admission HPI Per Admitting Provider Pt is 78 y/o F with PMH systolic congestive heart failure, CKD IV not yet on dialysis, has AV fistula, insulin-dependent DM II, chronic LBBB, obesity, hypothyroidism and others listed below presented as direct admission from [facility] for hyponatremia and increased edema. Patient with recent hospital admission 02/12/2019-02/14/2019 for frequent falls, hypoglycemia and was discharged to [facility]. Pt reports chronic SOB at baseline and chronic orthopnea. She does not feel she is any more SOB than her baseline however has noticed increased edema to legs and abdomen. Reports been having cough white phlegm for past month. [facility] reports that today sodium was 120 and was 123 yesterday. Creatinine: 2.5 today and was 2.3 yesterday. Reported that her torsemide was decreased at [facility]. Reports was given IV Lasix 20 mg 1 dose yesterday. Also reports was given NSS at 70 ml/hr for total of 1 Liter NSS yesterday. She states has been urinating. Pt reports eating and drinking and thinks drinks approx 32 ounces of water a day. Pt states still with difficulty walking and reports has not been able to participate in PT very much at [facility]. Denies fever/chills, diaphoresis, N/V/D/C, WHITAKER, dizziness, syncope, vision changes, neck pain, CP, palpitations,sore throat, choking, otalgia, rhinorrhea, abdominal pain, rashes, urinary symptoms. Discharge Data Consultations 03/02/19 12:11 Consult Case Management - Discharge Planning Routine 03/02/19 13:40 Consult Nephrology Routine 03/02/19 14:08 Consult Cardiology Routine 03/03/19 22:49 Burn CD for patient Stat Hospital Course (1) Acute on chronic heart failure: Acute on chronic systolic heart failure Volume overload In setting of CKD H/O nonischemic systolic heart failure EF: 20 to 25%, severe global hypokinesis dyskinesis of the interventricular sep [place] on echo CXR:Trace left and moderate right pleural effusions with right midlung and right lung base consolidation. Correlate clinically to exclude pneumonia. Cardiomegaly with pulmonary vascular congestion. Patient's torsemide was decreased at [facility] secondary to hyponatremia Hold p.o. diuretics Continue IV Lasix drip Appreciate cardiology, nephrology input If no improvement, patient will need dialysis Monitor electrolytes, volume status, daily weight, I/Os Abnormal CXR CXR:Right midlung and right lung base consolidation ? Pneumonia Minimal leukocytosis Check procalcitonin, if elevated will start on antibiotics Afebrile (2) Hyponatremia: Hypervolemic Hypotonic hyponatremia Secondary to above Insetting of Hypothyroidism, Volume Overload Continue fluid restriction Monitor sodium levels Continue diuresis as above Appreciate nephrology input (3) CKD (chronic kidney disease) stage 4, GFR 15-29 ml/min: Not initially on dialysis yet. Has AV fistula. Follows with Dr Coughlin Baseline Cr:~2.3-2.7 Expect creatinine levels to worsen while on IV diuretics Monitor renal function Hyperkalemia Likely due to CKD Avoid potassium supplements Received calcium gluconate On IV Lasix drip Monitor electrolytes (4) Diabetes mellitus type 2, insulin dependent: H/O hypoglycemia Hold Home insulin 70/30 Monitor BSGs ISS for now No tight blood glucose control secondary to hypoglycemic episodes (5) Hypothyroidism: TSH: 21. Was 44 Levothyroxine increased from 50mcg to 75cmg on 01/23/19 Continue levothyroxine Needs repeat testing of thyroid function as outpatient (6) Hyperlipidemia: Continue atorvastatin (7) GERD (gastroesophageal reflux disease): Continue PPI DVT Px: Heparin SQ Code Status Full Code (8) Cardiorenal syndrome: 03/03/19 8PM Worsening kidney function, hyperkalemia despite ongoing Lasix infusion. Dr. Auguste (club licensee medication nurse) recommended transfer to [facility] for emergent hemodialysis as service currently unavailable at [facility]. Patient kindly accepted for transfer by Dr. Larkin ([facility] lacing string cutter medication nurse). Patient and son agreeable to plan of care.
== END 2019-03-04 01:06 | disposition short-term general hospital (02) | DRG 291 ==
LOC: SUATTDRO 12:19 → 2N 12:19

== ENCOUNTER 2019-07-31 07:43 | Inpatient (IN) ==
[2019-07-31 08:35] LABS: Hematocrit (blood only) 32.1 % (37-47); Mean Corpuscular Hemoglobin 31.5 pg (25-34); Mean Corpuscular Hgb Conc 31.2 g/dL (32-36); Mean Corpuscular Volume 101.3 fL (80-100); Nucleated RBC # (auto) 0.03 K/uL (0-0); Nucleated RBC % (auto) 0.8 %; RDW Coefficient of Variation 20.3 % (11.5-14.5); RDW Standard Deviation 72.8 fL (36.4-46.3); Red Blood Count 3.17 M/uL (4.2-5.4); White Blood Count 3.78 K/uL (4.8-10.8)
--- NOTE | 2019-07-31 08:44 | XRay Report ---
XR chest 1V portable CLINICAL HISTORY: sob dyspnea COMPARISON STUDY: 07/14/2019 FINDINGS: Interval development of a diffuse right hemithoracic infiltrate. Asymmetric pulmonary edema is also a consideration. Probable small right effusion. IMPRESSION: Interval development of asymmetric pulmonary edema versus diffuse right hemithoracic inf iltrative change. ACT 112: Negative or not required by law. The above report was generated using voice recognition software. It may contain grammatical, syntax or spelling errors. Electronically signed by: Anthony Patel M.D. 07/31/2019 8:43 AM
[2019-07-31 08:56] LABS: Albumin Globulin Ratio 0.6 (0.9-2); Albumin Level 2.7 gm/dl (3.4-5.0); BUN Creatinine Ratio 7.4 (10-20); Calcium 8.4 mg/dl (8.5-10.1); Creatinine Clr Calc Pharmacy 11.8 ml/min; Est GFR (Non-African American) 9.5; Globulin 4.3 gm/dl (2.5-4.0)
[2019-07-31] MEDS ORDERED: PIPERACILLIN/TAZOBACTAM 3.375 GM in DEXTROSE 5% 100 ML/100 ML BAG IV STA (08:58)
[2019-07-31] MEDS ORDERED: PIPERACILL/TAZOBAC CONSULT ACTIVE PRN (08:58)
[2019-07-31 09:18] LABS: Troponin I 0.276 ng/ml (0-0.045)
[2019-07-31 09:27] LABS: Potassium 3.7 mmol/L (3.5-5.1)
[2019-07-31 09:32] LABS: Basophils # (auto) 0.03 K/uL (0-0.2); Basophils % (auto) 0.8 %; Lymphocytes # (auto) 1.15 K/uL (1.2-3.4); Lymphocytes % (auto) 30.4 %; Macrocytosis Present; Mean Platelet Volume 11.7 fL (7.4-10.4); Monocytes # (auto) 0.55 K/uL (0.11-0.59); Monocytes % (auto) 14.6 %; Neutrophils # (auto) 2.05 K/uL (1.4-6.5); Neutrophils % (auto) 54.2 %; Ovalocytes 1+; Platelet Count 83 K/uL (130-400); Spherocytes 1+
[2019-07-31 09:39] LABS: Prothrombin Time 33.8 Seconds (9.0-12.0)
[2019-07-31 09:56] LABS: Partial Thromboplastin Time 53.8 Seconds (21.0-31.0)
[2019-07-31 09:57] LABS: INR 3.6 (0.9-1.1)
[2019-07-31 10:25] LABS: iSTAT Hematocrit 32 % (37-47); iSTAT Hemoglobin 10.9 g/dl (12.0-16.0); iSTAT Potassium 3.8 mmol/L (3.3-5.0); iSTAT Sodium 135 mmol/L (135-144)
[2019-07-31 10:26] LABS: iSTAT Arterial Blood Gas HCO3 30 meg/L (19-24); iSTAT Arterial Blood Gas pCO2 57 mmHg (35-46); iSTAT Arterial Blood Gas pH 7.33 (7.35-7.45); iSTAT Arterial Blood Gas pO2 71 mmHg (80-95); iSTAT Carbon Dioxide 32 mmol/L (24-31)
--- NOTE | 2019-07-31 10:31 | CT Scan Report ---
CT head/brain wo con CT DOSE: 1228.53 mGy.cm HISTORY: Mental status change altered mental status TECHNIQUE: Multiaxial CT images of the head were performed without the use of intravenous contrast. A dose lowering technique was utilized adhering to the principles of ALARA. Comparison: 07/11/2019 Findings: Acute right maxillary sinusitis. Mild mucosal thickening of the ethmoid sinuses. Mastoid ai r cells are clear. The calvarium and skull base are intact. The ventricles and sulci are within normal limits. There is no mass, hematoma, midline shift, or acute infarct. Moderately compromised exam technically due to p atient motion. Impression: 1. Acute right maxillary sinusitis. 2. No acute process of the brain. ACT 112: Negative or not required by law. The above report was generated using voice recognition software. It may contain grammatical, syntax or spelling errors. Electronically signed by: Anthony Patel M.D. 07/31/2019 10:30 AM
--- NOTE | 2019-07-31 10:40 | Emergency Department Note ---
ED Visit Note Patient seen and examined in conjunction with Dr. Rose. Please see his note for medical decision making. . Resident Activity Tracking Resident Involvement: Resident Care Provided Care Provided: Adult ED : Pneumonia Qualifiers: Pneumonia type: due to unspecified organism Laterality: right Lung location: lower lobe of lung Qualified Code(s): J18.9 - Pneumonia, unspecified organism
--- NOTE | 2019-07-31 10:41 | Emergency Department Note ---
Entered by Nereida Fragoso acting as a scribe for Richie Rose DO History of Present Illness General Chief complaint: Shortness of Breath/Dyspnea Stated complaint: diff. breathing Time Seen by Provider: 07/31/19 07:48 Source: EMS Mode of arrival: EMS Limitations: other (mental status) History of Present Illness Onset (ago): hour(s) (this morning) Location: left (lung) and right (lung) Pain Consistency: + other (persistent) Quality: + other (shortness of breath) Associated symptoms: + cough, + shortness of breath and + other (4L) The patient is an 78 year old female presenting to the Emergency Department via EMS complaining of persistent shortness of breath starting this morning. EMS reports that the patient resides at [facility] and that staff noticed the patient was short of breath when she woke up this morning and that she had a cough. They state that the patients oxygen saturation on room air was 86%. They explain that the patient doesnt normally use supplemental oxygen. They note that the patient received dialysis treatments but still makes her own urine. They add that the patient last received dialysis yesterday and that 4L of fluid were taken off. The HPI and ROS are limited due to mental status. Home Medications Home Medications Medication Instructions Recorded Confirmed Type acetaminophen [Tylenol] 650 mg PO BID PRN 03/31/19 07/31/19 History gabapentin 100 mg PO MOWEFR 03/31/19 07/31/19 History insulin NPH and regular human 13 unit SUBCUT BIDM 03/31/19 07/31/19 History ipratropium-albuterol 3 ml INHALATION Q4H PRN 03/31/19 07/31/19 History losartan 12.5 mg PO QAM 03/31/19 07/31/19 History metoprolol succinate 25 mg PO QAM 03/31/19 07/31/19 History torsemide 80 mg PO SUTUTHSA 03/31/19 07/31/19 History Renal Caps 1 cap PO QAM 05/01/19 07/31/19 History levothyroxine 75 mcg PO DAILY@0600 05/01/19 07/31/19 History montelukast 10 mg PO HS 05/01/19 07/31/19 History benzonatate 100 mg PO TID PRN 07/11/19 07/31/19 History multivitamin 1 cap PO QAM 07/11/19 07/31/19 History atorvastatin 10 mg PO HS 07/31/19 07/31/19 History gabapentin 100 mg PO HS 07/31/19 07/31/19 History insulin regular human [Humulin R 1 sliding scale dose SUBCUT ACHS 07/31/19 07/31/19 History Regular U-100 Insuln] melatonin 3 mg PO HS 07/31/19 07/31/19 History pantoprazole 40 mg PO HS 07/31/19 07/31/19 History warfarin 2 mg PO HS 07/31/19 07/31/19 History Allergies Allergy/AdvReac Type Severity Reaction Status Date / Time fish derived Allergy Severe Anaphylaxis Verified 07/31/19 08:28 alcohol Allergy Intermediate bumps on Verified 07/31/19 08:28 skin with alcohol wipes Aminoglycosides Allergy Intermediate Rash Verified 07/31/19 08:28 polymyxin B Allergy Intermediate Rash Verified 07/31/19 08:28 neomycin Allergy Mild Rash Verified 07/31/19 08:28 iodine Allergy Unknown Unknown Verified 07/31/19 08:28 promethazine Allergy Unknown Unknown Verified 07/31/19 08:28 aminophylline Allergy Unknown Verified 07/31/19 08:28 nystatin Allergy Unknown Verified 07/31/19 08:28 adhesive AdvReac Mild bumps on Verified 07/31/19 08:28 skin with "tape" Past Med/Surg History Medical History Anemia Breast cancer s/p radiation CAD (coronary artery disease) mild, non-obstructive per 06/2018 cardiac cath Chronic back pain Diabetes mellitus type 2, insulin dependent (Chronic) ESRD (end stage renal disease) dialysis M-W-F via LUE fistula ESRD (end stage renal disease) on dialysis (Chronic) Frequent falls GERD (gastroesophageal reflux disease) controlled Goals of care, counseling/discussion Hyperlipidemia Hypothyroidism LBBB (left bundle branch block) chronic dating back to at least 2007 per prior [facility] EKG's Morbid obesity Non-ischemic cardiomyopathy (Chronic) Osteoarthritis Peripheral neuropathy Pleural effusion, right (Chronic) Systolic and diastolic CHF w/reduced LV function, NYHA class 4 (Chronic) Surgical History AVF (arteriovenous fistula) LEFT ARM History of appendectomy History of cardiac cath 06/2018: Mild, non-obstructive CAD/no culprit lesions identified to explain symptoms or abnormal stress test History of cataract surgery Hx of lumpectomy Right breast Family History Father Diabetes Other Allergies Heart disease Social History Preferred Language: And[place] Communication Ability: Effective Communication Ability Comment: unable to comprehend at this time, normal A & O, drowsy, opens eyes to name Visual Impairment: No Limitations Hearing Ability: Hard of Hearing 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 Physical Exam Vital Signs Vital Signs - 24 hr 07/31/19 07:59 07/31/19 08:05 07/31/19 09:00 Temperature 37.6 C H Temperature Source Oral Pulse Rate 85 84 Pulse Rate [Left Finger] 82 Pulse Rhythm Regular Respiratory Rate 22 24 Respiratory Effort / Characteristics Spontaneous Non-Labored Spontaneous Respiratory Depth Normal Normal Respiratory Pattern Regular Blood Pressure 123/62 Blood Pressure [Right Arm] 123/62 Blood Pressure Mean 82 Blood Pressure Mean [Right Arm] 82 Blood Pressure Position [Right Arm] Lying Pulse Oximetry 86 L 100 100 Oxygen Delivery Method Room Air Nasal Cannula BiPAP Oxygen Flow Rate 2 Fraction of Inspired Oxygen Sepsis Recent Fever Within 48 Hours No Sepsis New/Unexplained Change in Mental Status No Sepsis Action Taken by Nursing No Action Required 07/31/19 09:46 Temperature Temperature Source Pulse Rate 83 Pulse Rate [Left Finger] Pulse Rhythm Respiratory Rate 36 H Respiratory Effort / Characteristics Spontaneous Respiratory Depth Respiratory Pattern Blood Pressure Blood Pressure [Right Arm] Blood Pressure Mean Blood Pressure Mean [Right Arm] Blood Pressure Position [Right Arm] Pulse Oximetry 96 Oxygen Delivery Method Oxygen Flow Rate Fraction of Inspired Oxygen 35 Sepsis Recent Fever Within 48 Hours Sepsis New/Unexplained Change in Mental Status Sepsis Action Taken by Nursing CONSTITUTIONAL/VITAL SIGNS: Reviewed / noted above. GENERAL: Generalized weakness. INTEGUMENTARY: Warm, dry, and [place]. HEAD: Normocephalic. EYES: without scleral icterus or trauma. ENT/OROPHARYNX: clear and moist. LYMPHADENOPATHY/NECK: Is supple without lymphadenopathy or meningismus. RESPIRATORY: Hypoventilating. Lungs clear and equal. CARDIOVASCULAR: Regular rate and rhythm. GI/ABDOMEN: Soft and nontender. No organomegaly or pulsatile mass. No rebound or guarding. Normal bowel sounds. EXTREMITIES: Warm and well perfused. BACK: No CVA tenderness. NEUROLOGICAL: Slightly lethargic. Intact without focal deficits. PSYCHIATRIC: normal affect. MUSCULOSKELETAL: Normally developed with good muscle tone. Procedures ABG Interpretation ABG Interpretation 1: ABG Results: pH is 7.33/PCO2 57/PaO2 71/bicarb 30 Interpretation: respiratory acidosis Course Course 0752: Previous medical records were reviewed. The patient was evaluated in room A2. A complete history and physical examination was performed. 0926: I discussed the patient's case with Melissa MCALLISTER. Dr. Marcelino Caraballo hospitalist will evaluate the patient for further management. Administered Medications Discontinued Medications Piperacillin Sod/Tazobactam (Sod 3.375 gm/ Dextrose) 100 ml in 115 mls @ 230 mls/hr IV NOW STA Stop: 07/31/19 09:27 Last Infusion: 07/31/19 10:36 Dose: 0 mls/hr Documented by: [id number] Admin: 07/31/19 09:46 Dose: 230 mls/hr Documented by: [id number] Medical Decision Making Differential Diagnosis Differential Diagnosis includes but is not limited to dehydration, stroke, anemia, hypoglycemia, hyponatremia, hypernatremia, urinary tract infection, pneumonia, bronchitis, sepsis, gastroenteritis, additional abdominal pathology, metabolic abnormalities and infections. Medical Records Attestation: I reviewed the patient's medical records. Home Medications Current Medication List: was personally reviewed by me Laboratory Data Attestation: I reviewed the patient's lab results. Result diagrams: 07/31/19 08:25 07/31/19 09:03 Lab Results 07/31/19 07/31/19 07/31/19 Range/Units 08:25 08:25 08:25 WBC 3.78 L (4.8-10.8) K/uL RBC 3.17 L (4.2-5.4) M/uL Hgb 10.0 L (12.0-16.0) g/dL POC Hgb (12.0-16.0) g/dl Hct 32.1 L (37-47) % POC Hct (37-47) % MCV 101.3 H (80-100) fL MCH 31.5 (25-34) pg MCHC 31.2 L (32-36) g/dL RDW Std Deviation 72.8 H (36.4-46.3) fL RDW Coeff of Archana 20.3 H (11.5-14.5) % Plt Count 83 L (130-400) K/uL MPV 11.7 H (7.4-10.4) fL Immature Gran % (Auto) 0.0 % Neut % (Auto) 54.2 % Lymph % (Auto) 30.4 % [place] % (Auto) 14.6 % Eos % (Auto) 0.0 % Baso % (Auto) 0.8 % Immature Gran # (Auto) 0.00 (0.00-0.02) K/uL Neut # (Auto) 2.05 (1.4-6.5) K/uL Lymph # (Auto) 1.15 L (1.2-3.4) K/uL [place] # (Auto) 0.55 (0.11-0.59) K/uL Eos # (Auto) 0.00 (0-0.5) K/uL Baso # (Auto) 0.03 (0-0.2) K/uL Absolute Nucleated RBC 0.03 H (0-0) K/uL Nucleated RBC % (auto) 0.8 % Macrocytosis Present Spherocytes 1+ Ovalocytes 1+ PT Cancelled INR Cancelled APTT Cancelled PTT Ratio Cancelled POC pH (7.35-7.45) POC pCO2 (35-46) mmHg POC pO2 (80-95) mmHg POC HCO3 (19-24) anya/L POC Total CO2 (24-31) mmol/L POC Base Excess (-9-1.8) anya/L POC Sodium (135-144) mmol/L Sodium 133 L (136-145) mmol/L POC Potassium (3.3-5.0) mmol/L Potassium (3.5-5.1) mmol/L Chloride 97 L (98-107) mmol/L Carbon Dioxide 31 (21-32) mmol/L Anion Gap 6.0 (3-11) BUN 31 H (7-18) mg/dl Creatinine 4.15 H (0.6-1.2) mg/dl Est Cr Clr Drug Dosing 11.8 ml/min Est GFR ( Amer) 11.0 Est GFR (Non-Af Amer) 9.5 BUN/Creatinine Ratio 7.4 L (10-20) Glucose 62 L (70-99) mg/dl Calcium 8.4 L (8.5-10.1) mg/dl Total Bilirubin 1.0 (0.2-1) mg/dl AST (15-37) U/L ALT 28 (12-78) U/L Alkaline Phosphatase 242 H (45-117) U/L Troponin I 0.276 H* (0-0.045) ng/ml NT-Pro-B Natriuret Pep (0-1800) pg/ml Total Protein 7.0 (6.4-8.2) gm/dl Albumin 2.7 L (3.4-5.0) gm/dl Globulin 4.3 H (2.5-4.0) gm/dl Albumin/Globulin Ratio 0.6 L (0.9-2) 07/31/19 07/31/19 07/31/19 Range/Units 09:03 09:03 09:03 WBC (4.8-10.8) K/uL RBC (4.2-5.4) M/uL Hgb (12.0-16.0) g/dL POC Hgb (12.0-16.0) g/dl Hct (37-47) % POC Hct (37-47) % MCV (80-100) fL MCH (25-34) pg MCHC (32-36) g/dL RDW Std Deviation (36.4-46.3) fL RDW Coeff of Archana (11.5-14.5) % Plt Count (130-400) K/uL MPV (7.4-10.4) fL Immature Gran % (Auto) % Neut % (Auto) % Lymph % (Auto) % [place] % (Auto) % Eos % (Auto) % Baso % (Auto) % Immature Gran # (Auto) (0.00-0.02) K/uL Neut # (Auto) (1.4-6.5) K/uL Lymph # (Auto) (1.2-3.4) K/uL [place] # (Auto) (0.11-0.59) K/uL Eos # (Auto) (0-0.5) K/uL Baso # (Auto) (0-0.2) K/uL Absolute Nucleated RBC (0-0) K/uL Nucleated RBC % (auto) % Macrocytosis Spherocytes Ovalocytes PT 33.8 H INR 3.6 H APTT 53.8 H* PTT Ratio 2.0 POC pH (7.35-7.45) POC pCO2 (35-46) mmHg POC pO2 (80-95) mmHg POC HCO3 (19-24) anya/L POC Total CO2 (24-31) mmol/L POC Base Excess (-9-1.8) anya/L POC Sodium (135-144) mmol/L Sodium (136-145) mmol/L POC Potassium (3.3-5.0) mmol/L Potassium 3.7 (3.5-5.1) mmol/L Chloride (98-107) mmol/L Carbon Dioxide (21-32) mmol/L Anion Gap (3-11) BUN (7-18) mg/dl Creatinine (0.6-1.2) mg/dl Est Cr Clr Drug Dosing ml/min Est GFR ( Amer) Est GFR (Non-Af Amer) BUN/Creatinine Ratio (10-20) Glucose (70-99) mg/dl Calcium (8.5-10.1) mg/dl Total Bilirubin (0.2-1) mg/dl AST 80 H (15-37) U/L ALT (12-78) U/L Alkaline Phosphatase (45-117) U/L Troponin I (0-0.045) ng/ml NT-Pro-B Natriuret Pep 02126 H Cancelled (0-1800) pg/ml Total Protein (6.4-8.2) gm/dl Albumin (3.4-5.0) gm/dl Globulin (2.5-4.0) gm/dl Albumin/Globulin Ratio (0.9-2) 07/31/19 Range/Units 09:35 WBC (4.8-10.8) K/uL RBC (4.2-5.4) M/uL Hgb (12.0-16.0) g/dL POC Hgb 10.9 L (12.0-16.0) g/dl Hct (37-47) % POC Hct 32 L (37-47) % MCV (80-100) fL MCH (25-34) pg MCHC (32-36) g/dL RDW Std Deviation (36.4-46.3) fL RDW Coeff of Archana (11.5-14.5) % Plt Count (130-400) K/uL MPV (7.4-10.4) fL Immature Gran % (Auto) % Neut % (Auto) % Lymph % (Auto) % [place] % (Auto) % Eos % (Auto) % Baso % (Auto) % Immature Gran # (Auto) (0.00-0.02) K/uL Neut # (Auto) (1.4-6.5) K/uL Lymph # (Auto) (1.2-3.4) K/uL [place] # (Auto) (0.11-0.59) K/uL Eos # (Auto) (0-0.5) K/uL Baso # (Auto) (0-0.2) K/uL Absolute Nucleated RBC (0-0) K/uL Nucleated RBC % (auto) % Macrocytosis Spherocytes Ovalocytes PT INR APTT PTT Ratio POC pH 7.33 L (7.35-7.45) POC pCO2 57 H (35-46) mmHg POC pO2 71 L (80-95) mmHg POC HCO3 30 H (19-24) anya/L POC Total CO2 32 H (24-31) mmol/L POC Base Excess 5.0 H (-9-1.8) anya/L POC Sodium 135 (135-144) mmol/L Sodium (136-145) mmol/L POC Potassium 3.8 (3.3-5.0) mmol/L Potassium (3.5-5.1) mmol/L Chloride (98-107) mmol/L Carbon Dioxide (21-32) mmol/L Anion Gap (3-11) BUN (7-18) mg/dl Creatinine (0.6-1.2) mg/dl Est Cr Clr Drug Dosing ml/min Est GFR ( Amer) Est GFR (Non-Af Amer) BUN/Creatinine Ratio (10-20) Glucose (70-99) mg/dl Calcium (8.5-10.1) mg/dl Total Bilirubin (0.2-1) mg/dl AST (15-37) U/L ALT (12-78) U/L Alkaline Phosphatase (45-117) U/L Troponin I (0-0.045) ng/ml NT-Pro-B Natriuret Pep (0-1800) pg/ml Total Protein (6.4-8.2) gm/dl Albumin (3.4-5.0) gm/dl Globulin (2.5-4.0) gm/dl Albumin/Globulin Ratio (0.9-2) Imaging Data Radiologist's Impression: Radiology results as stated below per my review and the radiologist's interpretation: XR chest 1V portable CLINICAL HISTORY: sob dyspnea COMPARISON STUDY: 07/14/2019 FINDINGS: Interval development of a diffuse right hemithoracic infiltrate. Asymmetric pulmonary edema is also a consideration. Probable small right effusion. IMPRESSION: Interval development of asymmetric pulmonary edema versus diffuse right hemithoracic infiltrative change. ACT 112: Negative or not required by law. The above report was generated using voice recognition software. It may contain grammatical, syntax or spelling errors. Electronically signed by: Anthony Patel M.D. 07/31/2019 8:43 AM ECG Data Attestation: I personally reviewed and interpreted this ECG as follows: Indication: + SOB/dyspnea Rate (beats per minute): 84 Rhythm: + normal sinus ECG Intervals/blocks: + Normal QT-c ECG ST segments: no ST elevation ECG Findings: no PVCs Blood Pressure Blood Pressure Findings: Elevated blood pressure Blood Pressure Disposition: further management by hospitalist ESPERANZA Junior This is a 78-year-old female who presents to the ED with a chief complaint of shortness of breath. She was found to be hypoxic here at 86%. The patient had dialysis yesterday. She has reported a cough. She came from [facility]. She is chronically on warfarin. The patient's exam as noted above. She does seem to be a little lethargic on exam although with a couple of liters of oxygen, she states that her breathing seems to be better. The chest x-ray reveals an asymmetric pulmonary edema pattern versus pneumonia. Clinically this is more likely pneumonia as she had dialysis yesterday and she does have a cough. The patient CBC is unremarkable. EKG shows a normal sinus rhythm. INR is 3.6. Chemistry panel was unremarkable. Troponin is elevated. An ABG reveals a mild respiratory acidosis and some hypercarbia. The patient was placed on BiPAP here. She is a DNR/DNI. The patient was given IV Zosyn for a pneumonia seen on chest x-ray. The patient be seen by the hospitalist for further inpatient evaluation and care. Impression & Plan Pneumonia, Hypoxia Discharge Plan Visit Data Chief Complaint: Shortness of Breath/Dyspnea Stated Complaint: diff. breathing ED Provider: Richie Rose ED Midlevel Provider: Duran Bustos Discharge Problem: Pneumonia, Hypoxia Patient Disposition: Being Evaluated by Hospitalist Forms Stand Alone Forms: [facility] Prescriptions Prescriptions: No Action benzonatate 100 mg capsule 100 mg PO TID PRN (Reason: Cough) RF: 0 multivitamin Capsule 1 cap PO QAM RF: 0 acetaminophen [Tylenol] 325 mg Tablet 650 mg PO BID PRN (Reason: Pain) RF: 0 ipratropium-albuterol 0.5 mg-3 mg(2.5 mg base)/3 mL Solution For Nebulization 3 ml INHALATION Q4H PRN (Reason: sob/wheezing) RF: 0 torsemide 20 mg Tablet 80 mg PO SUTUTHSA RF: 0 losartan 25 mg Tablet 12.5 mg PO QAM RF: 0 gabapentin 100 mg capsule 100 mg PO MOWEFR RF: 0 metoprolol succinate 25 mg Tablet Extended Release 24 Hr 25 mg PO QAM RF: 0 insulin NPH and regular human 100 unit/mL (70-30) Insulin Pen 13 unit SUBCUT BIDM RF: 0 levothyroxine 75 mcg Tablet 75 mcg PO DAILY@0600 RF: 0 montelukast 10 mg Tablet 10 mg PO HS RF: 0 Renal Caps 1 mg Capsule 1 cap PO QAM RF: 0 atorvastatin 10 mg Tablet 10 mg PO HS RF: 0 pantoprazole 40 mg Tablet,Delayed Release (Dr/Ec) 40 mg PO HS RF: 0 gabapentin 100 mg capsule 100 mg PO HS RF: 0 warfarin 2 mg Tablet 2 mg PO HS RF: 0 melatonin 3 mg Tablet 3 mg PO HS RF: 0 Humulin R Regular U-100 Insuln 100 unit/mL Solution 1 sliding scale dose SUBCUT ACHS RF: 0 Referrals Referrals: [facility] [Primary Care Provider] - Discharge Problem: Pneumonia Qualifiers: Pneumonia type: due to unspecified organism Laterality: right Lung location: lower lobe of lung Qualified Code(s): J18.9 - Pneumonia, unspecified organism The scribe's documentation has been prepared under my direction and personally reviewed by me in its entirety. I confirm that the note above accurately reflects all work, treatment, procedures, and medical decision making performed by me.
--- NOTE | 2019-07-31 11:19 | History & Physical Report ---
Date of Service July 31, 2019 Assessment & Plan (1) Acute respiratory failure with hypoxia: Influenza A -positive flu study by PCR -start Tamiflu when more capable of oral intake, on droplet precautions (2) Volume overload: (3) Metabolic encephalopathy: (4) ESRD (end stage renal disease) on dialysis: (5) Systolic and diastolic CHF w/reduced LV function, NYHA class 4: -admit to tele -patient sent from [facility] for evaluation of hypoxia, wheezing, and orthopnea; while in the ED, noted to have altered mental status -hx of ESRD on HD and systolic/diastolic CHF (EF 25-29%, grade II diastolic dysfunction) -fluid status typically managed with HD and PO diuretics on non-dialysis days, per staff at [facility] - 4L removed yesterday and 9L total during last week's sessions -proBNP 16,000 - ? clinical significance in this case -Dr. Coughlin notified; may need short dialysis session today -head CT negative for intracranial findings; does show signs of acute right maxillary sinusitis -CXR shows questionable infiltrate -procalc 5.77 -s/p Zosyn in the ED, will continue with for now -does not appear septic (no fever or leukocytosis) -also noted to be hypoglycemic (glucose 62) - give D50 and re-evaluate -check U/A to evaluate for other causes of infection/encephalopathy -altered mental status likely multifactorial - hypoxia, hypoglycemia, possible infection (6) Elevated troponin: -mild trop elevation 0.276 -no reported chest pain -EKG unchanged -likely due to demand ischemia from volume overload and hypoxia -continue to cycle cardiac enzymes (7) Diabetes mellitus type 2, insulin dependent: -hgb a1c 6.6 02/2019 -glucose 62 on labs - holding insulin for now, giving D50 (8) History of DVT (deep vein thrombosis): -Left Upper Extremity DVT in the past although recent admission shows general resolution of blood clots -on Coumadin, INR 3.6; hold Coumadin tonight (9) Peripheral neuropathy: -hold gabapentin for now due to altered mental status (10) Hyperlipidemia: -continue statin (11) GERD (gastroesophageal reflux disease): -continue PPI (12) Hypothyroidism: -continue levothyroxine (13) DVT prophylaxis: -on Coumadin, INR 3.6 History of Present Illness Chief Complaint: Hypoxia Primary Care Provider: [facility] 78 year old female who presents to the ED from [facility] for evaluation of hypoxia. Patient recently admitted to [facility] 07/11 - 07/17 for hypoxia, volume overload, and AV fistula malfunction. Patient was transferred to [facility] [place] [place] on 07/17 for management of the AV fistula malformation. She underwent fistulogram and balloon angioplasty and was discharged to [facility] on 07/19. History is currently unobtainable from the patient. Per the staff at [facility] patient has been having hypoxia for the past few days. They placed her on 2 L of oxygen via nasal cannula with improvement in oxygen saturations. However patient will remove the oxygen from time to time. They have due to wheezing and orthopnea. Patient receives dialysis on Tuesday, Tuesday, Tuesday. 4 L was removed yesterday and last weeks total was 9 L. They also report the patient has had poor p.o. intake however no reports of nausea, vomiting, diarrhea. Patient is typically alert and oriented x3 at baseline. No reported fevers or chills. Patient makes very minimal urine. In the ED, patient is found to be hypoxic on room air at 85%. She was placed on BiPAP for a short period of time however is now saturating well on nasal cannula. Labs show mildly elevated troponin 0.276. No acute EKG changes. CXR shows infiltrate versus pulmonary edema. Patient was given IV Zosyn. Allergies Allergy/AdvReac Type Severity Reaction Status Date / Time fish derived Allergy Severe Anaphylaxis Verified 07/31/19 08:28 alcohol Allergy Intermediate bumps on Verified 07/31/19 08:28 skin with alcohol wipes Aminoglycosides Allergy Intermediate Rash Verified 07/31/19 08:28 polymyxin B Allergy Intermediate Rash Verified 07/31/19 08:28 neomycin Allergy Mild Rash Verified 07/31/19 08:28 iodine Allergy Unknown Unknown Verified 07/31/19 08:28 promethazine Allergy Unknown Unknown Verified 07/31/19 08:28 aminophylline Allergy Unknown Verified 07/31/19 08:28 nystatin Allergy Unknown Verified 07/31/19 08:28 adhesive AdvReac Mild bumps on Verified 07/31/19 08:28 skin with "tape" Home Medications Home Medications Medication Instructions Recorded Confirmed Type acetaminophen [Tylenol] 650 mg PO BID PRN 03/31/19 07/31/19 History gabapentin 100 mg PO MOWEFR 03/31/19 07/31/19 History insulin NPH and regular human 13 unit SUBCUT BIDM 03/31/19 07/31/19 History ipratropium-albuterol 3 ml INHALATION Q4H PRN 03/31/19 07/31/19 History losartan 12.5 mg PO QAM 03/31/19 07/31/19 History metoprolol succinate 25 mg PO QAM 03/31/19 07/31/19 History torsemide 80 mg PO SUTUTHSA 03/31/19 07/31/19 History Renal Caps 1 cap PO QAM 05/01/19 07/31/19 History levothyroxine 75 mcg PO DAILY@0600 05/01/19 07/31/19 History montelukast 10 mg PO HS 05/01/19 07/31/19 History benzonatate 100 mg PO TID PRN 07/11/19 07/31/19 History multivitamin 1 cap PO QAM 07/11/19 07/31/19 History atorvastatin 10 mg PO HS 07/31/19 07/31/19 History gabapentin 100 mg PO HS 07/31/19 07/31/19 History insulin regular human [Humulin R 1 sliding scale dose SUBCUT ACHS 07/31/19 07/31/19 History Regular U-100 Insuln] melatonin 3 mg PO HS 07/31/19 07/31/19 History pantoprazole 40 mg PO HS 07/31/19 07/31/19 History warfarin 2 mg PO HS 07/31/19 07/31/19 History Past Med/Surg History Medical History (Updated 07/31/19 @ 12:04 by ARY Joy) Anemia Breast cancer s/p radiation CAD (coronary artery disease) mild, non-obstructive per 06/2018 cardiac cath Cardiorenal syndrome Chronic back pain Diabetes mellitus type 2, insulin dependent (Chronic) ESRD (end stage renal disease) on dialysis (Chronic) GERD (gastroesophageal reflux disease) controlled History of DVT (deep vein thrombosis) LUE Hyperlipidemia Hypothyroidism LBBB (left bundle branch block) chronic dating back to at least 2007 per prior [facility] EKG's Morbid obesity Non-ischemic cardiomyopathy (Chronic) Osteoarthritis Peripheral neuropathy Systolic and diastolic CHF w/reduced LV function, NYHA class 4 (Chronic) Surgical History AVF (arteriovenous fistula) LEFT ARM History of appendectomy History of cardiac cath 06/2018: Mild, non-obstructive CAD/no culprit lesions identified to explain symptoms or abnormal stress test History of cataract surgery Hx of lumpectomy Right breast Family History Father Diabetes Other Allergies Heart disease Social History Preferred Language: Vietnamese Communication Ability: Effective Communication Ability Comment: unable to comprehend at this time, normal A & O, drowsy, opens eyes to name Visual Impairment: No Limitations Hearing Ability: Hard of Hearing Chief Green Officer Required: No Beliefs That Will Affect Care: None marital status: Current Living Situation: [facility] Other Information That Helps Us Care for You: No Feels Safe at Home: Yes Safety Concerns: Feels Safe At This Time Smoking Status: Never smoker Do You Dip or Chew Tobacco: No ; Second Hand Exposure: No ; Tobacco Cessation Education Requested by Patient: No Hx Alcohol Use: No Hx Substance Use: No Review of Systems Review of Systems: Unobtainable due to reduced consciousness Physical Exam Constitutional: WD/WN, vitals as above + obese Eyes: PERRL, conjunctivae normal, anicteric sclerae ENMT: external ear and nose normal, oropharynx normal Respiratory: + tachypneic Auscultation: + diminished lung sounds on Bipap Cardiovascular: Rate/Rhythm: regular rate and regular rhythm Vessels: normal peripheral pulses Extremities: + edema (+1-2 pitting edema BLLE) Gastrointestinal (Abdomen): normal bowel sounds, soft, nontender, no hepatosplenomegaly Musculoskeletal: no cyanosis or clubbing, extremities motor strength 5/[address] to LUE Skin: no rashes, warm and dry Neurologic: Patient will not follow commands however is moving all extremities. Does not open eyes, moaning at times, trying to remove BiPap. Psychiatric: Orientation: + not alert and + not oriented x 3 Results & Data Vital Signs (Past 12 Hours) Vital Signs Temp Pulse Pulse Resp BP BP Pulse Ox 07/31/19 11:06 74 24 139/65 94 07/31/19 09:46 83 36 H 96 07/31/19 09:00 82 24 123/62 100 07/31/19 08:05 84 100 07/31/19 07:59 37.6 C H 85 22 123/62 86 L Laboratory Results Short CBC 07/31/19 Range/Units 08:25 WBC 3.78 L (4.8-10.8) K/uL Hgb 10.0 L (12.0-16.0) g/dL Hct 32.1 L (37-47) % Plt Count 83 L (130-400) K/uL BMP 07/31/19 07/31/19 08:25 09:03 Sodium 133 L Potassium 3.7 Chloride 97 L Carbon Dioxide 31 BUN 31 H Creatinine 4.15 H Glucose 62 L Calcium 8.4 L Cardiac Enzymes 07/31/19 Range/Units 08:25 Troponin I 0.276 H* (0-0.045) ng/ml Liver Function 07/31/19 07/31/19 Range/Units 08:25 09:03 Total Bilirubin 1.0 (0.2-1) mg/dl AST 80 H (15-37) U/L ALT 28 (12-78) U/L Alkaline Phosphatase 242 H (45-117) U/L Albumin 2.7 L (3.4-5.0) gm/dl Diagnostic Findings HEAD CT IMPRESSION: 1. Acute right maxillary sinusitis. 2. No acute process of the brain. CXR IMPRESSION: Interval development of asymmetric pulmonary edema versus diffuse right hemithoracic infiltrative change. Code Status & VTE Plan Code Status Patient is a DNR as per paperwork sent from [facility]. VTE Prophylaxis Plan VTE Prophylaxis will be ordered: No Supervising Physician Co-Signing Physician Notes I have seen and examined the patient with nurse practitioner in the ED and again independently when on telemetry service while boarding the ICU wilhelm and would like to comment that On exam while on telemetry service General: patient has baseline auditory impairments as seen on my last interaction with the patient from previous admission when she usually used hearing aid device. patient initially presented fro shortness of breath butwhen in the emergency room patient became very lethargic and difficult to arouse from sleep. patient apparently was having symptomatic hypoglycemia in the 60s and when she was given the dextrose in the telemetry service, patient was able to speak more and orient to the hospital Lungs: breathing on nasal cannula but needed nursing to pastoral counselor here to keep the nasal cannula on. when on room air the oxygen saturation in the mid 80s Heart: regular rate Abdomen: soft, bowel sounds audible ACUTE RESPIRATORY FAILURE WITH HYPOXIA END STAGE RENAL DISEASE ON DIALYSIS CONGESTIVE HEART FAILURE Influenza A -the acute respiratory failure with hypoxia likely due to some volume overload, patient will get dialysis session on 07/31/2019, and because flu poistive. start Tamiflu when more capable of oral intake, on droplet precautions -positive procalcitonin, difficult to discern whether there is pneumonia lung infiltrate on chest X ray given patient's can be fluid overloaded, empiric respiratory antibiotics for now, if hypoxia improves with dialysis and no fevers then possibly respiratory antibiotics can be discontinued at a later date depending on lung imaging after a dialysis session elevated troponins -follow troponins, patient denied chest pain when she was more alert History of DVT -Left Upper Extremity DVT in the past although recent admission shows general resolution of blood clots -on Coumadin, INR 3.6; hold Coumadin tonight Acute metabolic encephalopathy Type 2 diabetes mellitus with technician terminal and repeater current of insulin and with complication of hypoglycemia -changes in mental status from illness and also contributed by hypoglycemia, hypoglycemia improved after D50, monitor blood glucose closely agree with other assessments and plans as per nurse practitioner My colleague Dr. Zheng will be following the patient starting on 07/31/2019
[2019-07-31] MEDS ORDERED: HEPARIN SOD (PORCINE) 1000 UNIT/ML 10 ML VIAL IV ONE (11:30)
[2019-07-31] MEDS ORDERED: SODIUM CHLORIDE 0.9% 1000ML 1,000 ML IV PRN (11:30)
[2019-07-31] MEDS ORDERED: ALBUT/IPRATROP 3MG/0.5MG NEB 3 ML VIAL INH PRN (11:52)
[2019-07-31] MEDS ORDERED: DEXTROSE 50% 50 ML SYRINGE IV ONE ×2 (12:19→12:22)
[2019-07-31] MEDS ORDERED: PHARMACY GLYCEMIC MGMT CONSULT PRN (12:23)
[2019-07-31] MEDS ORDERED: D5W AND 1/2NSS 1,000 ML IV SCH (12:30)
[2019-07-31] MEDS ORDERED: DEXTROSE 50% 50 ML SYRINGE IV PRN (13:15)
[2019-07-31] MEDS ORDERED: GLUCAGON FOR INJ 1 MG VIAL SQ PRN (13:15)
[2019-07-31] MEDS ORDERED: GLUCOSE 40% GEL 15 GM TUBE PO PRN (13:15)
[2019-07-31] MEDS ORDERED: GLUCOSE 10 TABS/TUBE PO PRN (13:15)
[2019-07-31 13:22] LABS: Influenza B virus by PCR Neg for Influ B (Neg)
[2019-07-31] MEDS: INSULIN GLARGINE SOLOSTAR 100 UNITS/ML 3 ML PEN SC ONE ×2 (13:32→13:41)
[2019-07-31] MEDS: HEPARIN SOD (PORCINE) 1000 UNIT/ML 10 ML VIAL IV SCH ×2 (14:20→17:40)
--- NOTE | 2019-07-31 14:54 | Pharmacy Report ---
Glycemic Control Consultation - Date of Service July 31, 2019 - Scope Scope: Glycemic Pharmacist consulted by Melissa MCALLISTER on 07/31/19 for glycemic control and to write orders per [facility] inpatient glycemic control protocol - Objective Weight: 101.8 kg Accuchecks BSG (last 24hrs): 07/31/19 07/31/19 07/31/19 08:25 12:13 12:15 Glucose 62 L POC Glucose 62 L* 64 L* 07/31/19 12:39 Glucose POC Glucose 220 H Laboratory Data (last 24hrs): 07/31/19 07/31/19 08:25 09:03 Potassium 3.7 Carbon Dioxide 31 Anion Gap 6.0 Creatinine 4.15 H Est Cr Clr Drug Dosing 11.8 - Recent Pertinent Medications Outpatient Anti-diabetic Regimen: * NPH/Reg 70/30 13 units BIDM + regular sliding scale * A1c = 6.6 % 07/31/19 Risk Factors for Insulin Resistance: * Steroids: * Infection: Flu +, zosyn * Pressors: * IVF: * Recent Surgery * Diet: NPO * Mechanical Ventilation: - Assessment & Plan Assessment & Plan: ASSESSMENT: * 78 yo female from [facility] presenting with hypoxia, ESRD w/ dialysis MoWeThFr per hospitalist, an additional dialysis session today. Flu + pcr. Currently on zosyn for questionable infiltrate. MRSA negative * Patient was hypoglycemic on admission, with last insulin administration yesterday evening * 220 at lunch after administration of Dextrose, currently NPO. Will give reduced lantus dose with 1800 check if still elevated, patient undergoing dialysis at this time. Will use lantus over NPH to avoid peak while in NPO status PLAN FOR INPATIENT GLYCEMIC CONTROL: * Basal insulin * Scale for 1800: hold if bsg <140, 5 units 140-180, 9 units >180 * Bolus insulin * NovoLog per scale ACHS or Q6hrs while NPO * Goal Range: Low 120 mg/dL - High 160 mg/dL * Correction Factor: 25 mg/dL/unit * Nutritional / Prandial insulin per carb ratio of 1 unit per 8 grams CHO consumed * Please note that the plan above was derived based on current level of insulin resistance and hospital stress. These recommendations are appropriate for inpatient admission only. Plan of care upon discharge will need to be reassessed to avoid potential outpatient hypo/hyperglycemia. Thank you.
--- NOTE | 2019-07-31 15:00 | Electrocardiogram Report ---
Test Reason : Blood Pressure : / mmHG Vent. Rate : 084 BPM Atrial Rate : 084 BPM P-R Int : 162 ms QRS Dur : 134 ms QT Int : 388 ms P-R-T Axes : 053 145 154 degrees QTc Int : 458 ms Normal sinus rhythm Non-specific intra-ventricular conduction block Possible Lateral infarct (cited on or before 03-MAR-2019) Abnormal ECG When compared with ECG of 11-JUL-2019 12:28, Questionable change in initial forces of Anterolateral leads Nonspecific T wave abnormality, improved in Inferior leads QT has shortened Confirmed by Hernandez Fine ([id number]) on 07/31/2019 3:00:26 PM Referred By: [facility] Confirmed By:Yaakov Fine
[2019-07-31] MEDS ORDERED: ENALAPRILAT 1.25 MG in DEXTROSE 5% 25 ML IV PRN (16:33)
--- NOTE | 2019-07-31 16:39 | Dialysis Progress Note ---
Date of Service July 31, 2019 Assessment & Plan (1) Acute respiratory failure with hypoxia: Patient tested positive for flu Tuesday. Generally does not require oxygen. Today she is on 4 L of oxygen and blood gas drawn on unknown O2 supplementation shows hypoxemia. Emergent hemodialysis with goal fluid removal 2.5 L today to improve breathing -To start oseltamivir Present on Admission?: Yes (2) Volume overload: a chronic issue for her. had 4L UF at HD yesterday; attempted aggressive UF on 07/27 and on 07/26, 07/25 << these at [facility] -Plan next dialysis tomorrow per routine When taking p.o., recommend 1.2 L fluid limit -Agree with IV PEARL inhibitor for blood pressure management as well as IV beta- walter Present on Admission?: Yes (3) ESRD (end stage renal disease) on dialysis: Tuesday via AV fistula: Next treatment tomorrow -Daily BMP and CBC please Present on Admission?: Yes (4) Anemia: Anemia of chronic disease. Transferrin saturation July 25 was 12%. She had been undergoing an IV iron load. However will hold IV iron pending culture results; no epo today Present on Admission?: Yes Subjective Seen towards the end of a 2.5-hour treatment. Was confused earlier's afternoon but answers and interacts mostly appropriately if redirected. Complains of leg cramps and diffuse body aches. Denies shortness of breath, nausea vomiting; positive dry cough. Review of Systems Review of Systems: All systems reviewed & are unremarkable except as noted in HPI & below Physical Exam Constitutional: well developed, well nourished, + acute distress (Mild d istress with cramping) and + morbidly obese Eyes: EOM intact bilaterally ENMT: Ears: + hearing impairment; no external ear abnormality Nose: no external nose abnormality Mouth: + dry oral mucous membranes Neck: no nuchal rigidity Respiratory: normal respiratory effort; no respiratory distress Auscultation: + diminished lung sounds On 4 L nasal cannula Cardiovascular: Rate/Rhythm: regular rate and regular rhythm Extremities: + edema (Trace bilateral lower extremities) and + AV fistula (Positive thrill and bruit) Gastrointestinal (Abdomen): Inspection/Auscultation: normal bowel sounds Percussion/Palpation: abdomen soft; abdomen nontender Musculoskeletal: Extremities: strength 5/5 throughout Skin: no rashes, warm and dry Neurologic: rae, fluent speech, no tremor Psychiatric: Orientation: alert, oriented to person, oriented to place and cooperative Speech: normal rate/rhythm/volume of speech Affect: euthymic affect Results & Data Vital Signs (Past 12 Hours) Vital Signs Temp Pulse Pulse Resp BP BP Pulse Ox 07/31/19 16:00 89 07/31/19 15:30 89 143/52 H 07/31/19 15:15 89 118/55 L 07/31/19 15:00 89 120/66 07/31/19 14:45 89 105/50 L 07/31/19 14:30 82 107/80 07/31/19 14:15 88 120/59 L 07/31/19 14:00 80 126/62 07/31/19 13:45 83 108/55 L 07/31/19 13:30 37.0 C 83 07/31/19 11:48 37 C 79 16 119/58 L 94 07/31/19 11:45 78 07/31/19 11:06 74 24 139/65 94 07/31/19 09:46 83 36 H 96 07/31/19 09:00 82 24 123/62 100 07/31/19 08:05 84 100 07/31/19 07:59 37.6 C H 85 22 123/62 86 L Laboratory Results Reviewed Diagnostic Findings Chest x-ray today Interval development of asymmetric pulmonary edema versus diffuse right hemithoracic infiltrative change. Head CT today 1. Acute right maxillary sinusitis. 2. No acute process of the brain. (1) Volume overload Hypervolemia type: other Qualified Code(s): E87.79 - Other fluid overload (2) Anemia Anemia type: unspecified type Qualified Code(s): D64.9 - Anemia, unspecified
[2019-07-31 17:01] LABS: Hematocrit (blood only) 33.4 % (37-47); Hemoglobin 10.3 g/dL (12.0-16.0); Mean Corpuscular Hemoglobin 31.3 pg (25-34); Mean Corpuscular Volume 101.5 fL (80-100); Nucleated RBC # (auto) 0.03 K/uL (0-0); Nucleated RBC % (auto) 0.7 %; RDW Coefficient of Variation 20.4 % (11.5-14.5); RDW Standard Deviation 74.9 fL (36.4-46.3); Red Blood Count 3.29 M/uL (4.2-5.4)
[2019-07-31 17:03] LABS: Base Excess VBG 0.9 mEq/L; Oxygen Saturation VBG 75.4 %; pH VBG 7.32 (7.36-7.41)
[2019-07-31 17:18] LABS: Albumin Level 2.9 gm/dl (3.4-5.0); Calcium 8.7 mg/dl (8.5-10.1); Creatinine Clr Calc Pharmacy 15.9 ml/min; Est GFR (African American) 16.1; Est GFR (Non-African American) 13.9; Potassium 3.7 mmol/L (3.5-5.1)
[2019-07-31 17:24] LABS: Albumin Globulin Ratio 0.7 (0.9-2); Bilirubin,Total 1.1 mg/dl (0.2-1); Globulin 4.3 gm/dl (2.5-4.0); Total Protein 7.2 gm/dl (6.4-8.2); Troponin I 0.309 ng/ml (0-0.045)
[2019-07-31] MEDS: INSULIN ASPART 100 UNITS/ML 3 ML PEN SC SCH ×2 (17:41→23:36)
[2019-07-31] MEDS: PIPERACILLIN/TAZOBACTAM 3.375 GM in DEXTROSE 5% 100 ML IV SCH (17:47)
[2019-07-31] MEDS: METOPROLOL TARTRATE 1 MG/ML VIAL IV SCH ×2 (17:48→23:36)
[2019-07-31] MEDS: OSELTAMIVIR PHOSPHATE SUSP 30 MG/5 ML UDP PO SCH (17:48)
[2019-07-31 17:52] LABS: Mean Corpuscular Hgb Conc 30.8 g/dL (32-36); Mean Platelet Volume 10.7 fL (7.4-10.4); Platelet Count 51 K/uL (130-400)
[2019-07-31 17:54] LABS: ANC (manual) 2.55 K/uL (1.4-6.5); Anisocytosis Present; Basophils # (manual) 0.08 K/uL (0-0.2); Basophils % (manual) 1.7 %; Echinocytes 1+; Large Granular Lymph # (manua 0.78 K/uL; Large Granular Lymph % (manual) 17.4 %; Lymphocytes # (manual) 0.67 K/uL (1.2-3.4); Lymphocytes % (manual) 14.8 %; Monocytes # (manual) 0.35 K/uL (0.11-0.59); Monocytes % (manual) 7.8 %; Neutrophils # (manual) 2.55 K/uL (1.4-6.5); Neutrophils % (manual) 56.6 %; Reactive Lymphocytes # (manual) 0.08 K/uL; Reactive Lymphocytes % (manual) 1.7 %
[2019-07-31] MEDS ORDERED: INSULIN GLARGINE SOLOSTAR 100 UNITS/ML 3 ML PEN SC ONE ×3 (18:00→21:00)
[2019-07-31] MEDS: PANTOprazole 40 MG TAB PO SCH (20:17)
[2019-07-31] MEDS: ATORVASTATIN 10 MG TAB PO SCH (20:17)
[2019-07-31] MEDS ORDERED: MONTELUKAST SODIUM 10 MG TABLET PO SCH (21:00)
--- NOTE | 2019-07-31 22:30 | Nephrology Consultation ---
Date of Consultation July 31, 2019 Assessment & Plan (1) Acute respiratory failure with hypoxia: Patient tested positive for flu Tuesday. Generally does not require oxygen. Today she is on 4 L of oxygen and blood gas drawn on unknown O2 supplementation shows hypoxemia. Emergent hemodialysis with goal fluid removal 2.5 L today to improve breathing -on oseltamivir (2) Volume overload: a chronic issue for her. had 4L UF at HD yesterday; attempted aggressive UF on 07/27 and on 07/26, 07/25 << these at [facility] -Plan next dialysis tomorrow per routine When taking p.o., recommend 1.2 L fluid limit -Agree with IV PEARL inhibitor for blood pressure management as well as IV beta- walter (3) ESRD (end stage renal disease) on dialysis: Tuesday via AV fistula: Next treatment tomorrow -Daily BMP and CBC please (4) Anemia: Anemia of chronic disease. Transferrin saturation July 25 was 12%. She had been undergoing an IV iron load. However will hold IV iron pending culture results; no epo today History of Present Illness Reason for Consultation: ESRD Requesting Physician: Dr Benson Attending Physician: Magdiel Benson MD History of Present Illness 78 y/o F whom I"m asked to see for dialysis needs after she was admitted this afternoon for rehab w/ acute hypoxic respiratory failure and found to have influenza A. Pt has been doing rehab at [facility] after recent admission to [facility] for a fall, then [place] [facility] [place] mgt of AVF malfunction s/p angioplasty. She has chronic volume overload. I evaluated her on 07/25 and noted her to be wheezing > did 4 days dialysis last week w/ 9L UF; also aggressive fluid removal yesterday for 4L. Despite this and 02 therapy at [facility] her respiratory status worsened. PMH includes chronic mixed systolic/diastolic HF ith 2017 ejection fraction 20 to 25% and impaired diastolic filling, left upper extremity DVT on Coumadin, type II DM, coronary artery disease, class 3 obesity, chronic right pleural effusion, and as below. She dialyzes under my care at [facility] via a left AV fistula on MWF. She needed bipap briefly in ER and had transient confusion. When I evaluated her this evening she was more at baseline MS. c/o SOB and leg cramps, diffuse joint pain/body aches at my eval. Allergies Allergy/AdvReac Type Severity Reaction Status Date / Time fish derived Allergy Severe Anaphylaxis Verified 07/31/19 08:28 alcohol Allergy Intermediate bumps on Verified 07/31/19 08:28 skin with alcohol wipes Aminoglycosides Allergy Intermediate Rash Verified 07/31/19 08:28 polymyxin B Allergy Intermediate Rash Verified 07/31/19 08:28 neomycin Allergy Mild Rash Verified 07/31/19 08:28 iodine Allergy Unknown Unknown Verified 07/31/19 08:28 promethazine Allergy Unknown Unknown Verified 07/31/19 08:28 aminophylline Allergy Unknown Verified 07/31/19 08:28 nystatin Allergy Unknown Verified 07/31/19 08:28 adhesive AdvReac Mild bumps on Verified 07/31/19 08:28 skin with "tape" Home Medications Home Medications Medication Instructions Recorded Confirmed Type acetaminophen [Tylenol] 650 mg PO BID PRN 03/31/19 07/31/19 History gabapentin 100 mg PO MOWEFR 03/31/19 07/31/19 History insulin NPH and regular human 13 unit SUBCUT BIDM 03/31/19 07/31/19 History ipratropium-albuterol 3 ml INHALATION Q4H PRN 03/31/19 07/31/19 History losartan 12.5 mg PO QAM 03/31/19 07/31/19 History metoprolol succinate 25 mg PO QAM 03/31/19 07/31/19 History torsemide 80 mg PO SUTUTHSA 03/31/19 07/31/19 History Renal Caps 1 cap PO QAM 05/01/19 07/31/19 History levothyroxine 75 mcg PO DAILY@0600 05/01/19 07/31/19 History montelukast 10 mg PO HS 05/01/19 07/31/19 History benzonatate 100 mg PO TID PRN 07/11/19 07/31/19 History multivitamin 1 cap PO QAM 07/11/19 07/31/19 History atorvastatin 10 mg PO HS 07/31/19 07/31/19 History gabapentin 100 mg PO HS 07/31/19 07/31/19 History insulin regular human [Humulin R 1 sliding scale dose SUBCUT ACHS 07/31/19 07/31/19 History Regular U-100 Insuln] melatonin 3 mg PO HS 07/31/19 07/31/19 History pantoprazole 40 mg PO HS 07/31/19 07/31/19 History warfarin 2 mg PO HS 07/31/19 07/31/19 History Patient History Medical History Anemia Breast cancer s/p radiation CAD (coronary artery disease) mild, non-obstructive per 06/2018 cardiac cath Cardiorenal syndrome Chronic back pain Diabetes mellitus type 2, insulin dependent (Chronic) ESRD (end stage renal disease) on dialysis (Chronic) GERD (gastroesophageal reflux disease) controlled History of DVT (deep vein thrombosis) LUE Hyperlipidemia Hypothyroidism LBBB (left bundle branch block) chronic dating back to at least 2007 per prior [facility] EKG's Morbid obesity Non-ischemic cardiomyopathy (Chronic) Osteoarthritis Peripheral neuropathy Systolic and diastolic CHF w/reduced LV function, NYHA class 4 (Chronic) Surgical History AVF (arteriovenous fistula) LEFT ARM History of appendectomy History of cardiac cath 06/2018: Mild, non-obstructive CAD/no culprit lesions identified to explain symptoms or abnormal stress test History of cataract surgery Hx of lumpectomy Right breast S/P aneurysm repair 05/[address] Deutsch Family History Father Diabetes Other Allergies Heart disease Social History Preferred Language: B[place] Communication Ability: Effective Communication Ability Comment: unable to comprehend at this time, normal A & O, drowsy, opens eyes to name Visual Impairment: No Limitations Hearing Ability: Hard of Hearing Surveillance System Monitor Required: No Beliefs That Will Affect Care: None marital status: Current Living Situation: [facility] Other Information That Helps Us Care for You: No Feels Safe at Home: Yes Safety Concerns: Feels Safe At This Time Smoking Status: Never smoker Do You Dip or Chew Tobacco: No ; Second Hand Expos ure: No ; Tobacco Cessation Education Requested by Patient: No Hx Alcohol Use: No Hx Substance Use: No Review of Systems Review of Systems: All systems reviewed & are unremarkable except as noted in HPI & below Physical Exam Constitutional: well developed, well nourished, + acute distress (Mild distre ss with cramping) and + morbidly obese Eyes: EOM intact bilaterally ENMT: Ears: + hearing impairment; no external ear abnormality Nose: no external nose abnormality Mouth: + dry oral mucous membranes Neck: no nuchal rigidity Respiratory: normal respiratory effort; no respiratory distress Auscultation: + diminished lung sounds Cardiovascular: Rate/Rhythm: regular rate and regular rhythm Extremities: + edema (Trace bilateral lower extremities) and + AV fistula (Positive thrill and bruit) Gastrointestinal (Abdomen): Inspection/Auscultation: normal bowel sounds Percussion/Palpation: abdomen soft; abdomen nontender Musculoskeletal: Extremities: strength 5/5 throughout Skin: no rashes, warm and dry Psychiatric: Orientation: alert, oriented to person, oriented to place and cooperative Speech: normal rate/rhythm/volume of speech Affect: euthymic affect Results & Data Vital Signs (Past 12 Hours) Vital Signs Temp Pulse Pulse Pulse Resp BP BP 07/31/19 20:00 36.5 C 86 20 108/51 L 07/31/19 17:48 91 H 91/50 L 07/31/19 16:10 37.0 C 89 123/80 07/31/19 16:03 36.6 C 91 H 31 H 123/80 07/31/19 16:00 89 116/59 L 07/31/19 15:45 89 120/68 07/31/19 15:30 89 143/52 H 07/31/19 15:15 89 118/55 L 07/31/19 15:00 89 120/66 07/31/19 14:45 89 105/50 L 07/31/19 14:30 82 107/80 07/31/19 14:15 88 120/59 L 07/31/19 14:00 80 126/62 07/31/19 13:45 83 108/55 L 07/31/19 13:30 37.0 C 83 07/31/19 11:48 37 C 79 16 119/58 L 07/31/19 11:45 78 07/31/19 11:06 74 24 139/65 Pulse Ox 07/31/19 20:00 95 07/31/19 17:48 07/31/19 16:10 07/31/19 16:03 95 07/31/19 16:00 07/31/19 15:45 07/31/19 15:30 07/31/19 15:15 07/31/19 15:00 07/31/19 14:45 07/31/19 14:30 07/31/19 14:15 07/31/19 14:00 07/31/19 13:45 07/31/19 13:30 07/31/19 11:48 94 07/31/19 11:45 07/31/19 11:06 94 Laboratory Results reveiwed (1) Volume overload Hypervolemia type: other Qualified Code(s): E87.79 - Other fluid overload (2) Anemia Anemia type: unspecified type Qualified Code(s): D64.9 - Anemia, unspecified
[2019-07-31] MEDS: ACETAMINOPHEN 325 MG TAB PO PRN (23:35)
[2019-08-01 00:46] LABS: Albumin Level 2.8 gm/dl (3.4-5.0); BUN Creatinine Ratio 6.9 (10-20); Calcium 8.3 mg/dl (8.5-10.1); Creatinine Clr Calc Pharmacy 13.7 ml/min; Est GFR (African American) 13.4; Est GFR (Non-African American) 11.6; Potassium 3.8 mmol/L (3.5-5.1)
[2019-08-01 00:55] LABS: Albumin Globulin Ratio 0.7 (0.9-2); Globulin 3.9 gm/dl (2.5-4.0); Total Protein 6.7 gm/dl (6.4-8.2); Troponin I 0.286 ng/ml (0-0.045)
[2019-08-01 01:20] LABS: Base Excess VBG 1.5 mEq/L; HCO3 VBG 28 mmol/L; Oxygen Saturation VBG 63.2 %; PCO2 VBG 55 mmHg (38-50); PO2 VBG 37 mmHg; pH VBG 7.33 (7.36-7.41)
[2019-08-01] MEDS: METOPROLOL TARTRATE 1 MG/ML VIAL IV SCH ×4 (05:23→23:10)
[2019-08-01] MEDS: PIPERACILLIN/TAZOBACTAM 3.375 GM in DEXTROSE 5% 100 ML IV SCH ×2 (05:23→16:24)
[2019-08-01] MEDS: INSULIN ASPART 100 UNITS/ML 3 ML PEN SC SCH ×5 (05:23→20:11)
[2019-08-01] MEDS ORDERED: LEVOTHYROXINE SODIUM 75 MCG TABLET PO SCH (06:00)
[2019-08-01] MEDS ORDERED: SODIUM CHLORIDE 0.9% 1000ML 1,000 ML IV PRN (06:33)
[2019-08-01] MEDS ORDERED: EPOETIN ALFA 4,000 UNIT/ML VIAL IV ONE (06:33)
[2019-08-01] MEDS ORDERED: ALBUMIN 25% 50 ML IV PRN ×2 (06:45)
[2019-08-01] MEDS ORDERED: NEPHROCAPS PO SCH (09:00)
[2019-08-01] MEDS ORDERED: METOPROLOL SUCC 25MG EXT REL TAB PO SCH (09:00)
[2019-08-01] MEDS ORDERED: LOSARTAN POTASSIUM 25 MG TAB PO SCH (09:00)
[2019-08-01] MEDS ORDERED: MULTIVITAMIN TAB PO SCH (09:00)
[2019-08-01 11:26] LABS: Hematocrit (blood only) 33.1 % (37-47); Hemoglobin 10.3 g/dL (12.0-16.0); Mean Corpuscular Hemoglobin 31.2 pg (25-34); Mean Corpuscular Hgb Conc 31.1 g/dL (32-36); Mean Corpuscular Volume 100.3 fL (80-100); Nucleated RBC # (auto) 0.04 K/uL (0-0); Nucleated RBC % (auto) 0.9 %; RDW Coefficient of Variation 20.2 % (11.5-14.5); RDW Standard Deviation 73.8 fL (36.4-46.3); White Blood Count 4.45 K/uL (4.8-10.8)
[2019-08-01 11:47] LABS: Mean Platelet Volume 11.3 fL (7.4-10.4); Platelet Count 42 K/uL (130-400)
[2019-08-01 11:58] LABS: Prothrombin Time 40.9 Seconds (9.0-12.0)
[2019-08-01 12:02] LABS: Anisocytosis Present; Basophils # (auto) 0.05 K/uL (0-0.2); Basophils % (auto) 1.1 %; Eosinophils # (auto) 0.03 K/uL (0-0.5); Eosinophils % (auto) 0.7 %; Immature Granulocytes # (auto) 0.01 K/uL (0.00-0.02); Immature Granulocytes % (auto) 0.2 %; Lymphocytes # (auto) 1.26 K/uL (1.2-3.4); Lymphocytes % (auto) 28.3 %; Monocytes # (auto) 0.39 K/uL (0.11-0.59); Monocytes % (auto) 8.8 %; Neutrophils # (auto) 2.71 K/uL (1.4-6.5); Neutrophils % (auto) 60.9 %; Poikilocytosis Present
[2019-08-01 12:10] LABS: INR 4.4 (0.9-1.1)
--- NOTE | 2019-08-01 14:59 | Electrocardiogram Report ---
Test Reason : Blood Pressure : / mmHG Vent. Rate : 069 BPM Atrial Rate : 069 BPM P-R Int : 176 ms QRS Dur : 138 ms QT Int : 442 ms P-R-T Axes : 077 155 182 degrees QTc Int : 473 ms Sinus rhythm with occasional Premature ventricular complexes Non-specific intra-ventricular conduction block Possible Anterolateral infarct (cited on or before 03-MAR-2019) Low voltage QRS Abnormal ECG When compared with ECG of 31-JUL-2019 08:20, Premature ventricular complexes are now Present Confirmed by Hernandez Fine ([id number]) on 08/01/2019 2:59:22 PM Referred By: [facility] Confirmed By:Yaakov Fine
--- NOTE | 2019-08-01 15:15 | Dialysis Progress Note ---
Date of Service August 01, 2019 Assessment & Plan (1) Acute respiratory failure with hypoxia: Patient tested positive for flu Tuesday. Generally does not require oxygen. Today she is on 2 L of oxygen; down from 4L earlier. Had 2.5 L fluid removed on 07/31; had 3.5 L removed today w/ improved breathing -on oseltamivir (2) Volume overload: a chronic issue for her. has had 10 L fluid removed past 48 hrs -Plan next dialysis 08/03 per routine or as clinical needs dictate ordered 1.2 L fluid limit -used albumin IV to augment UF -Agree with IV PEARL inhibitor for blood pressure management as well as IV beta- walter (3) ESRD (end stage renal disease) on dialysis: Tuesday via AV fistula: Next treatment 08/03 -Daily BMP and CBC please (4) Anemia: Anemia of chronic disease. Transferrin saturation July 25 was 12%. She had been undergoing an IV iron load. However will hold IV iron pending culture results; had 4K units epo today Subjective seen on HD at about 0940; tolerating tx though some leg cramps. still coughing, still weak; intermittent confusion. Review of Systems Review of Systems: All systems reviewed & are unremarkable except as noted in HPI & below Physical Exam Constitutional: well developed, well nourished and + morbidly obese; no acute distress Eyes: EOM intact bilaterally ENMT: Ears: + hearing impairment; no external ear abnormality Nose: no external nose abnormality Mouth: + dry oral mucous membranes Neck: no nuchal rigidity Respiratory: normal respiratory effort; no respiratory distress Auscultation: + diminished lung sounds Cardiovascular: Rate/Rhythm: regular rate and regular rhythm Extremities: + edema (Trace bilateral lower extremities) and + AV fistula (Positive thrill and bruit) Gastrointestinal (Abdomen): Inspection/Auscultation: normal bowel sounds Percussion/Palpation: abdomen soft; abdomen nontender Musculoskeletal: Extremities: strength 5/5 throughout Skin: no rashes, warm and dry Neurologic: rae, generalized weakness, no tremor Psychiatric: Orientation: alert, oriented to person, oriented to place and cooperative Speech: normal rate/rhythm/volume of speech Affect: euthymic affect Results & Data Vital Signs (Past 12 Hours) Vital Signs Temp Pulse Pulse Resp BP BP Pulse Ox 08/01/19 13:06 78 19 132/63 08/01/19 13:00 78 16 100 08/01/19 12:00 37.1 C 78 114/59 L 08/01/19 11:50 79 99/41 L 08/01/19 11:36 76 21 102/49 L 90 08/01/19 11:30 76 101/50 L 08/01/19 11:15 74 99/73 L 08/01/19 11:00 74 103/41 L 08/01/19 10:45 74 92/62 L 08/01/19 10:30 73 93/45 L 08/01/19 10:15 71 104/54 L 08/01/19 10:00 72 87/67 L 08/01/19 09:45 71 107/65 08/01/19 09:40 71 16 08/01/19 09:36 70 22 107/65 99 08/01/19 09:30 71 93/43 L 08/01/19 09:15 71 91/65 L 08/01/19 09:06 77 14 118/45 L 97 08/01/19 09:00 69 118/45 L 08/01/19 08:40 74 87/50 L 08/01/19 08:33 72 19 102/44 L 94 08/01/19 08:30 70 99/46 L 08/01/19 08:21 37.1 C 81 19 109/42 L 90 08/01/19 08:20 72 102/44 L 08/01/19 08:10 37 C 73 08/01/19 05:23 78 105/47 L 08/01/19 04:07 36.6 C 73 18 103/52 L 95 Laboratory Results reveiwed (1) Volume overload Hypervolemia type: other Qualified Code(s): E87.79 - Other fluid overload (2) Anemia Anemia type: unspecified type Qualified Code(s): D64.9 - Anemia, unspecified
[2019-08-01] MEDS: ACETAMINOPHEN 325 MG TAB PO PRN ×2 (16:24→23:09)
[2019-08-01] MEDS: OSELTAMIVIR PHOSPHATE SUSP 30 MG/5 ML UDP PO SCH (16:24)
--- NOTE | 2019-08-01 18:55 | Hospitalist Progress Note ---
Date of Service August 01, 2019 Assessment & Plan (1) Acute respiratory failure with hypoxia: (1) Acute respiratory failure with hypoxia, likely multifactorial --Currently being weaned off nasal cannula, from for now down to 2 L Volume overload , secondary to systolic and diastolic CHF, ESRD on hemodialysis --Management per nephrology service Possible pneumonia -CXR shows questionable infiltrate -procalc 5.77 --Continue Zosyn Influenza A infection --Continue Tamiflu Metabolic encephalopathy, likely secondary to pneumonia, influenza infection, hypoglycemia -head CT negative for intracranial findings; does show signs of acute right maxillary sinusitis --Management of infections per above --Management of diabetes type 2 noted below Pancytopenia --No signs of bleeding Hold Coumadin --Check peripheral smear Elevated troponin likely due to demand ischemia from volume overload and hypoxia -mild trop elevation 0.276 -no reported chest pain -EKG unchanged -troponin 0.3 to 0.3 to 0.2 Diabetes mellitus type 2, insulin dependent: -hgb a1c 6.6 02/2019 -glucose 62 on labs on admission -Pharmacy glycemic control place History of DVT (deep vein thrombosis): -Left Upper Extremity DVT in the past although recent admission shows general resolution of blood clots -on Coumadin, INR 4.4 -Hold Coumadin Peripheral neuropathy: -hold gabapentin for now due to altered mental status Hyperlipidemia: -continue statin GERD (gastroesophageal reflux disease): -continue PPI Hypothyroidism: -continue levothyroxine (13) DVT prophylaxis: NR 4.4 Hold Coumadin Disposition pending Admission and Anticipated Discharge Date Admission Date: July 31, 2019 Subjective Follow-up for hypoxic respiratory failure next Seen resting in bed, comfortable, not in distress, having hemodialysis States she feels fine overall Denies shortness of breath, chest pain, palpitations, dizziness, headache No abdominal pain, no nausea or vomiting No other symptom Review of Systems Review of Systems: All systems reviewed & are unremarkable except as noted in HPI & below Physical Exam Physical Exam: General- oriented x 2, not in distress, speaks in sentences with no effort or accessory muscle use Head- atraumatic Eyes- PERRL, EOMI, anicteric ENT- oropharynx clear Neck- supple, no JVD, no adenopathy, no thyromegaly; carotids +2/2, no bruits appreciated Lungs- mild rales at the bases, no wheezing Heart- normal rate, regular rhythm; no murmur, no gallop, no rub appreciated Abdomen- normal bowel sounds, nondistended, soft, nontender, no masses or hepatosplenomegaly Extremities- trace pretibial edema, no calf tenderness; peripheral pulses intact Neuro- alert, oriented x 2; CN 2-12 grossly intact; motor 5/5 bilaterally;sensation 100% on all extremities; no other gross focal neurologic deficits Skin- warm & dry Results & Data ([facility]) Vital Signs (Past 12 Hours) Vital Signs Temp Pulse Pulse Resp BP BP Pulse Ox 08/01/19 16:23 79 21 121/56 L 93 08/01/19 16:00 36.8 C 82 21 08/01/19 14:06 79 20 105/78 08/01/19 14:02 78 21 97/59 L 97 08/01/19 13:51 79 24 97/50 L 91 08/01/19 13:36 77 20 105/69 98 08/01/19 13:23 79 22 106/49 L 94 08/01/19 13:06 78 19 132/63 08/01/19 13:00 78 16 100 08/01/19 12:00 37.1 C 78 114/59 L 08/01/19 11:50 79 99/41 L 08/01/19 11:36 76 21 102/49 L 90 08/01/19 11:30 76 101/50 L 08/01/19 11:15 74 99/73 L 08/01/19 11:00 74 103/41 L 08/01/19 10:45 74 92/62 L 08/01/19 10:30 73 93/45 L 08/01/19 10:15 71 104/54 L 08/01/19 10:00 72 87/67 L 08/01/19 09:45 71 107/65 08/01/19 09:40 71 16 08/01/19 09:36 70 22 107/65 99 08/01/19 09:30 71 93/43 L 08/01/19 09:15 71 91/65 L 08/01/19 09:06 77 14 118/45 L 97 08/01/19 09:00 69 118/45 L 08/01/19 08:40 74 87/50 L 08/01/19 08:33 72 19 102/44 L 94 08/01/19 08:30 70 99/46 L 08/01/19 08:21 37.1 C 81 19 109/42 L 90 08/01/19 08:20 72 102/44 L 08/01/19 08:10 37 C 73 Laboratory Results Laboratory Results - last 24 hr 07/31/19 07/31/19 08/01/19 20:05 23:34 00:21 WBC RBC Hgb Hct MCV MCH MCHC RDW Std Deviation RDW Coeff of Archana Plt Count MPV Immature Gran % (Auto) Neut % (Auto) Lymph % (Auto) [place] % (Auto) Eos % (Auto) Baso % (Auto) Immature Gran # (Auto) Neut # (Auto) Lymph # (Auto) [place] # (Auto) Eos # (Auto) Baso # (Auto) Absolute Nucleated RBC Nucleated RBC % (auto) Poikilocytosis Anisocytosis Peripher Smr Path Cons PT INR VBG pH VBG pCO2 VBG pO2 VBG HCO3 VBG O2 Saturation VBG Base Excess Sodium 133 L Potassium 3.8 Chloride 98 Carbon Dioxide 30 Anion Gap 6.0 BUN 24 H Creatinine 3.53 H D Est Cr Clr Drug Dosing 13.7 Est GFR ( Amer) 13.4 Est GFR (Non-Af Amer) 11.6 BUN/Creatinine Ratio 6.9 L Glucose 87 POC Glucose 100 H 71 Calcium 8.3 L Total Bilirubin 1.0 AST 89 H ALT 28 Alkaline Phosphatase 223 H Troponin I 0.286 H* Total Protein 6.7 Albumin 2.8 L Globulin 3.9 Albumin/Globulin Ratio 0.7 L Heparin-PF4 Ab Screen 08/01/19 08/01/19 08/01/19 00:21 05:15 11:04 WBC 4.45 L RBC 3.30 L Hgb 10.3 L Hct 33.1 L MCV 100.3 H MCH 31.2 MCHC 31.1 L RDW Std Deviation 73.8 H RDW Coeff of Archana 20.2 H Plt Count 42 L MPV 11.3 H Immature Gran % (Auto) 0.2 Neut % (Auto) 60.9 Lymph % (Auto) 28.3 [place] % (Auto) 8.8 Eos % (Auto) 0.7 Baso % (Auto) 1.1 Immature Gran # (Auto) 0.01 Neut # (Auto) 2.71 Lymph # (Auto) 1.26 [place] # (Auto) 0.39 Eos # (Auto) 0.03 Baso # (Auto) 0.05 Absolute Nucleated RBC 0.04 H Nucleated RBC % (auto) 0.9 Poikilocytosis Present Anisocytosis Present Peripher Smr Path Cons Pending PT INR VBG pH 7.33 L VBG pCO2 55 H VBG pO2 37 VBG HCO3 28 VBG O2 Saturation 63.2 VBG Base Excess 1.5 Sodium Potassium Chloride Carbon Dioxide Anion Gap BUN Creatinine Est Cr Clr Drug Dosing Est GFR ( Amer) Est GFR (Non-Af Amer) BUN/Creatinine Ratio Glucose POC Glucose 126 H Calcium Total Bilirubin AST ALT Alkaline Phosphatase Troponin I Total Protein Albumin Globulin Albumin/Globulin Ratio Heparin-PF4 Ab Screen 08/01/19 08/01/19 08/01/19 11:04 11:04 11:08 WBC RBC Hgb Hct MCV MCH MCHC RDW Std Deviation RDW Coeff of Archana Plt Count MPV Immature Gran % (Auto) Neut % (Auto) Lymph % (Auto) [place] % (Auto) Eos % (Auto) Baso % (Auto) Immature Gran # (Auto) Neut # (Auto) Lymph # (Auto) [place] # (Auto) Eos # (Auto) Baso # (Auto) Absolute Nucleated RBC Nucleated RBC % (auto) Poikilocytosis Anisocytosis Peripher Smr Path Cons PT 40.9 H INR 4.4 H VBG pH VBG pCO2 VBG pO2 VBG HCO3 VBG O2 Saturation VBG Base Excess Sodium Potassium Chloride Carbon Dioxide Anion Gap BUN Creatinine Est Cr Clr Drug Dosing Est GFR ( Amer) Est GFR (Non-Af Amer) BUN/Creatinine Ratio Glucose POC Glucose 69 L* Calcium Total Bilirubin AST ALT Alkaline Phosphatase Troponin I Total Protein Albumin Globulin Albumin/Globulin Ratio Heparin-PF4 Ab Screen Negative 08/01/19 08/01/19 11:09 16:21 WBC RBC Hgb Hct MCV MCH MCHC RDW Std Deviation RDW Coeff of Archana Plt Count MPV Immature Gran % (Auto) Neut % (Auto) Lymph % (Auto) [place] % (Auto) Eos % (Auto) Baso % (Auto) Immature Gran # (Auto) Neut # (Auto) Lymph # (Auto) [place] # (Auto) Eos # (Auto) Baso # (Auto) Absolute Nucleated RBC Nucleated RBC % (auto) Poikilocytosis Anisocytosis Peripher Smr Path Cons PT INR VBG pH VBG pCO2 VBG pO2 VBG HCO3 VBG O2 Saturation VBG Base Excess Sodium Potassium Chloride Carbon Dioxide Anion Gap BUN Creatinine Est Cr Clr Drug Dosing Est GFR ( Amer) Est GFR (Non-Af Amer) BUN/Creatinine Ratio Glucose POC Glucose 95 95 Calcium Total Bilirubin AST ALT Alkaline Phosphatase Troponin I Total Protein Albumin Globulin Albumin/Globulin Ratio Heparin-PF4 Ab Screen
[2019-08-01] MEDS: ATORVASTATIN 10 MG TAB PO SCH (20:11)
[2019-08-01] MEDS: PANTOprazole 40 MG TAB PO SCH (20:12)
[2019-08-01] MEDS: guaiFENesin SUGAR FREE 200 MG/10 ML UDC PO PRN (21:17)
[2019-08-01] MEDS: BENZONATATE 100 MG CAPSULE PO PRN (23:10)
[2019-08-02] MEDS: METOPROLOL TARTRATE 1 MG/ML VIAL IV SCH ×3 (06:18→17:33)
[2019-08-02] MEDS: PIPERACILLIN/TAZOBACTAM 3.375 GM in DEXTROSE 5% 100 ML IV SCH ×2 (06:19→17:32)
[2019-08-02] MEDS: INSULIN ASPART 100 UNITS/ML 3 ML PEN SC SCH ×4 (07:56→21:02)
[2019-08-02 08:32] LABS: Mean Corpuscular Hemoglobin 31.2 pg (25-34); Mean Corpuscular Hgb Conc 31.3 g/dL (32-36); Mean Corpuscular Volume 99.7 fL (80-100); RDW Standard Deviation 73.2 fL (36.4-46.3); Red Blood Count 3.21 M/uL (4.2-5.4); White Blood Count 5.55 K/uL (4.8-10.8)
[2019-08-02 08:48] LABS: Prothrombin Time 48.9 Seconds (9.0-12.0)
[2019-08-02 08:49] LABS: BUN Creatinine Ratio 7.3 (10-20); Calcium 8.1 mg/dl (8.5-10.1); Est GFR (African American) 13.3; Est GFR (Non-African American) 11.5; Potassium 3.6 mmol/L (3.5-5.1)
[2019-08-02 09:12] LABS: INR 5.4 (0.9-1.1)
[2019-08-02 09:33] LABS: Mean Platelet Volume 10.7 fL (7.4-10.4); Platelet Count 60 K/uL (130-400)
[2019-08-02 09:44] LABS: Anisocytosis Present; Basophils # (auto) 0.06 K/uL (0-0.2); Basophils % (auto) 1.1 %; Echinocytes 1+; Eosinophils # (auto) 0.07 K/uL (0-0.5); Eosinophils % (auto) 1.3 %; Lymphocytes # (auto) 1.67 K/uL (1.2-3.4); Lymphocytes % (auto) 30.1 %; Monocytes # (auto) 0.52 K/uL (0.11-0.59); Monocytes % (auto) 9.4 %; Neutrophils # (auto) 3.23 K/uL (1.4-6.5); Neutrophils % (auto) 58.1 %
[2019-08-02] MEDS: BENZONATATE 100 MG CAPSULE PO PRN (10:48)
[2019-08-02] MEDS: guaiFENesin SUGAR FREE 200 MG/10 ML UDC PO PRN (10:48)
[2019-08-02] MEDS ORDERED: NovoLIN-N (NPH) PER UNIT CHARGE SQ ONE (16:30)
--- NOTE | 2019-08-02 17:07 | Hospitalist Progress Note ---
Date of Service August 02, 2019 Assessment & Plan (1) Acute respiratory failure with hypoxia: 78-year-old female with history of ESRD, CHF systolic and diastolic type, diabetes type 2, DVT on Coumadin, presenting with shortness of breath. (1) Acute respiratory failure with hypoxia, likely multifactorial --weaned off nasal cannula, now saturating well on room air Volume overload , secondary to systolic and diastolic CHF, ESRD on hemodialysis (EF 25-29%, grade II diastolic dysfunction) --Resolved --Management per nephrology service Possible pneumonia -CXR shows questionable infiltrate -procalc 5.77 --Blood cultures negative so far --Patient remains afebrile no leukocytosis --Continue Zosyn --We will order repeat chest x-ray tomorrow Patient remains afebrile, blood cultures remain negative, chest x-ray is improving will transition to oral doxycycline Influenza A infection --Continue Tamiflu day #3 Metabolic encephalopathy, likely secondary to pneumonia, influenza infection, hypoglycemia -head CT negative for intracranial findings; does show signs of acute right maxillary sinusitis --Status improved today, more awake and alert, eating independently --Management of infections per above --Management of diabetes type 2 noted below Pancytopenia --WBC, platelets improving No signs of bleeding --Peripheral smear: Nonspecific findings, no signs of dysplasia --Continue to hold Coumadin for now for platelet count 60 K --Likely secondary to underlying infection, will continue to monitor CBC Supratherapeutic INR --INR increasing further now 5.4 No signs of bleeding --Could be secondary to concomitant use of antibiotics, CHF decompensation Discussed with Dr. Salazar, recommendation at this point is to administer vitamin K 2 mg IV 1 dose Monitor closely, monitor INR History of DVT (deep vein thrombosis): -Left Upper Extremity DVT in the past although recent admission shows general resolution of blood clots -on Coumadin, INR 5.4 -Hold Coumadin, vitamin K IV given today 08/02/2019 Elevated troponin likely due to demand ischemia from volume overload and hypoxia -mild trop elevation 0.276 -no reported chest pain -EKG unchanged -troponin 0.3 to 0.3 to 0.2 Diabetes mellitus type 2, insulin dependent: -hgb a1c 6.6 02/2019 -glucose 62 on labs on admission -Pharmacy glycemic control place Peripheral neuropathy: - resume Gabapentin Hyperlipidemia: -continue statin GERD (gastroesophageal reflux disease): -continue PPI Hypothyroidism: -continue levothyroxine DVT prophylaxis: INR 5.4 Hold Coumadin Disposition pending Admission and Anticipated Discharge Date Admission Date: July 31, 2019 Subjective Follow-up for influenza infection, pneumonia, volume overload Seen resting in bed, more awake and alert, oriented x2, answers most questions appropriately States she feels improved today, off oxygen supplementation Denies active shortness of breath, less coughing, no sputum production No chest pain Per RN, appetite is good, patient eating independent Denies other symptoms Review of Systems Review of Systems: All systems reviewed & are unremarkable except as noted in HPI & below Physical Exam Physical Exam: General- oriented x 2, not in distress, speaks in sentences with no effort or accessory muscle use Eyes- anicteric Neck- no JVD Lungs-positive mild rales at the bases, no wheezing Heart- normal rate, regular rhythm; no murmurs Abdomen- normal bowel sounds, nondistended, soft, nontender Extremities- no pretibial edema, no calf tenderness Fistula on the left arm, no bleeding Neuro- alert, oriented x 2; no gross focal neurologic deficits Skin- warm & dry Results & Data ([facility]) Vital Signs (Past 12 Hours) Vital Signs Temp Pulse Pulse Resp BP BP Pulse Ox 08/02/19 16:14 36.8 C 72 16 121/60 96 08/02/19 16:00 72 14 94 08/02/19 14:00 72 20 93 08/02/19 13:24 100 08/02/19 12:43 69 16 122/47 L 92 08/02/19 12:06 36.5 C 72 21 122/65 92 08/02/19 12:00 72 24 95 08/02/19 10:48 78 08/02/19 10:16 75 15 100 08/02/19 10:15 75 17 133/52 L 100 08/02/19 10:00 74 19 99 08/02/19 09:42 76 22 116/44 L 08/02/19 09:00 78 15 08/02/19 07:30 36.5 C 77 20 118/52 L 93 08/02/19 06:18 79 118/52 L Laboratory Results Laboratory Results - last 24 hr 08/01/19 08/01/19 08/02/19 11:04 20:10 07:27 WBC RBC Hgb Hct MCV MCH MCHC RDW Std Deviation RDW Coeff of Archana Plt Count MPV Immature Gran % (Auto) Neut % (Auto) Lymph % (Auto) [place] % (Auto) Eos % (Auto) Baso % (Auto) Immature Gran # (Auto) Neut # (Auto) Lymph # (Auto) [place] # (Auto) Eos # (Auto) Baso # (Auto) Anisocytosis Echinocytes Peripher Smr Path Cons PT INR Sodium Potassium Chloride Carbon Dioxide Anion Gap BUN Creatinine Est Cr Clr Drug Dosing Est GFR ( Amer) Est GFR (Non-Af Amer) BUN/Creatinine Ratio Glucose POC Glucose 105 H 101 H Calcium 08/02/19 08/02/19 08/02/19 08:15 08:15 08:15 WBC 5.55 RBC 3.21 L Hgb 10.0 L Hct 32.0 L MCV 99.7 MCH 31.2 MCHC 31.3 L RDW Std Deviation 73.2 H RDW Coeff of Archana 20.0 H Plt Count 60 L MPV 10.7 H Immature Gran % (Auto) 0.0 Neut % (Auto) 58.1 Lymph % (Auto) 30.1 [place] % (Auto) 9.4 Eos % (Auto) 1.3 Baso % (Auto) 1.1 Immature Gran # (Auto) 0.00 Neut # (Auto) 3.23 Lymph # (Auto) 1.67 [place] # (Auto) 0.52 Eos # (Auto) 0.07 Baso # (Auto) 0.06 Anisocytosis Present Echinocytes 1+ Peripher Smr Path Cons PT 48.9 H INR 5.4 H Sodium 130 L Potassium 3.6 Chloride 94 L Carbon Dioxide 28 Anion Gap 8.0 BUN 26 H Creatinine 3.55 H Est Cr Clr Drug Dosing 13.0 Est GFR ( Amer) 13.3 Est GFR (Non-Af Amer) 11.5 BUN/Creatinine Ratio 7.3 L Glucose 147 H POC Glucose Calcium 8.1 L 08/02/19 08/02/19 10:50 16:09 WBC RBC Hgb Hct MCV MCH MCHC RDW Std Deviation RDW Coeff of Archana Plt Count MPV Immature Gran % (Auto) Neut % (Auto) Lymph % (Auto) [place] % (Auto) Eos % (Auto) Baso % (Auto) Immature Gran # (Auto) Neut # (Auto) Lymph # (Auto) [place] # (Auto) Eos # (Auto) Baso # (Auto) Anisocytosis Echinocytes Peripher Smr Path Cons PT INR Sodium Potassium Chloride Carbon Dioxide Anion Gap BUN Creatinine Est Cr Clr Drug Dosing Est GFR ( Amer) Est GFR (Non-Af Amer) BUN/Creatinine Ratio Glucose POC Glucose 141 H 120 H Calcium
[2019-08-02] MEDS ORDERED: PHYTONADIONE 2 MG in SODIUM CHLORIDE 0.9% 50 ML IV ONE (18:30)
--- NOTE | 2019-08-02 19:02 | Electrocardiogram Report ---
Test Reason : Blood Pressure : / mmHG Vent. Rate : 071 BPM Atrial Rate : 071 BPM P-R Int : 136 ms QRS Dur : 144 ms QT Int : 452 ms P-R-T Axes : 058 156 132 degrees QTc Int : 491 ms Normal sinus rhythm Indeterminate axis Non-specific intra-ventricular conduction block Possible Anterolateral infarct (cited on or before 03-MAR-2019) Abnormal ECG When compared with ECG of 01-AUG-2019 07:13, Premature ventricular complexes are no longer Present Nonspecific T wave abnormality no longer evident in Inferior leads Confirmed by Hernandez Fine ([id number]) on 08/02/2019 7:02:11 PM Referred By: [facility] Confirmed By:Yaakov Fine
[2019-08-02] MEDS: ATORVASTATIN 10 MG TAB PO SCH (19:57)
[2019-08-02] MEDS: LACTOBACILLUS ACIDOPHILUS (FLORANEX) TAB PO SCH (19:58)
[2019-08-02] MEDS: PANTOprazole 40 MG TAB PO SCH (19:59)
[2019-08-02] MEDS ORDERED: GABAPENTIN 100 MG CAP PO SCH (21:00)
[2019-08-03] MEDS: PIPERACILLIN/TAZOBACTAM 3.375 GM in DEXTROSE 5% 100 ML IV SCH ×2 (06:18→17:09)
[2019-08-03 06:28] LABS: Hematocrit (blood only) 29.9 % (37-47); Hemoglobin 9.4 g/dL (12.0-16.0); Mean Corpuscular Hemoglobin 31.2 pg (25-34); Mean Corpuscular Hgb Conc 31.4 g/dL (32-36); Mean Corpuscular Volume 99.3 fL (80-100); RDW Coefficient of Variation 20.2 % (11.5-14.5); RDW Standard Deviation 72.4 fL (36.4-46.3); Red Blood Count 3.01 M/uL (4.2-5.4); White Blood Count 4.78 K/uL (4.8-10.8)
[2019-08-03 06:29] LABS: INR 2.2 (0.9-1.1); Prothrombin Time 20.9 Seconds (9.0-12.0)
[2019-08-03 06:47] LABS: Mean Platelet Volume 11.4 fL (7.4-10.4); Platelet Count 73 K/uL (130-400)
[2019-08-03 06:52] LABS: BUN Creatinine Ratio 7.1 (10-20); Calcium 7.9 mg/dl (8.5-10.1); Creatinine Clr Calc Pharmacy 10.5 ml/min; Est GFR (African American) 10.1; Est GFR (Non-African American) 8.7; Potassium 3.5 mmol/L (3.5-5.1)
[2019-08-03 07:00] LABS: Basophils # (auto) 0.02 K/uL (0-0.2); Basophils % (auto) 0.4 %; Eosinophils % (auto) 2.1 %; Lymphocytes # (auto) 1.54 K/uL (1.2-3.4); Lymphocytes % (auto) 32.2 %; Monocytes # (auto) 0.53 K/uL (0.11-0.59); Monocytes % (auto) 11.1 %; Neutrophils # (auto) 2.59 K/uL (1.4-6.5); Neutrophils % (auto) 54.2 %
[2019-08-03 07:01] LABS: Anisocytosis Present
[2019-08-03] MEDS ORDERED: SODIUM CHLORIDE 0.9% 1000ML 1,000 ML IV PRN (07:08)
[2019-08-03] MEDS ORDERED: EPOETIN ALFA 10,000 UNITS/ML VIAL IV ONE (07:08)
[2019-08-03] MEDS ORDERED: ALBUMIN 25% 50 ML IV PRN ×2 (07:15)
--- NOTE | 2019-08-03 07:16 | XRay Report ---
XR chest 1V portable CLINICAL HISTORY: ff up for pneumonia, CHF COMPARISON STUDY: 07/31/2019 FINDINGS: The heart is enlarged. There are persistent bilateral airspace opacities. There is a persis tent right pleural effusion. The findings likely represent asymmetric pulmonary edema with a right pl eural effusion. An infectious/inflammatory processes could of course appear similar[ IMPRESSION: Asymmetric pulmonary edema pattern with a right pleural effusion. ACT 112: Negative or not required by law. Electronically signed by: Mark Draper M.D. 08/03/2019 7:15 AM
--- NOTE | 2019-08-03 07:42 | Pharmacy Report ---
Pharmacy Glycemic Short Note 2 - Date of Service August 03, 2019 - Glycemic Short BSG Results (Last 24 hours): 08/02/19 08/02/19 08/02/19 08:15 10:50 16:09 Glucose 147 H POC Glucose 141 H 120 H 08/02/19 08/03/19 08/03/19 20:53 06:04 07:25 Glucose 120 H POC Glucose 146 H 129 H OUTPATIENT ANTIDIABETIC REGIMEN: * NPH/Reg 70/30 13 units BIDM + regular sliding scale * A1c = 6.6 % 07/31/19 Risk Factors for Insulin Resistance: * Infection: Flu +, zosyn * Diet: dialysis diet ASSESSMENT: 08/03/19 * Patient has used 5 units of novolog in past 24 hours, blood sugars ranging 101 -147mg/dl. * HD today * No basal needed in past 3 days, discontinue * No further changes at this time 07/31/19 * 78 yo female from [facility] presenting with hypoxia, ESRD w/ dialysis MoWeThFr per hospitalist, an additional dialysis session today. Flu + pcr. Currently on zosyn for questionable infiltrate. MRSA negative * Patient was hypoglycemic on admission, with last insulin administration yesterday evening * 220 at lunch after administration of Dextrose, currently NPO. Will give reduced lantus dose with 1800 check if still elevated, patient undergoing dialysis at this time. Will use lantus over NPH to avoid peak while in NPO status PLAN FOR INPATIENT GLYCEMIC CONTROL: * Basal insulin - discontinue * Bolus insulin * NovoLog per scale ACHS or Q6hrs while NPO * Goal Range: Low 120 mg/dL - High 160 mg/dL - higher goal range to avoid hypoglycemia in HD pt * Correction Factor: 25 mg/dL/unit * Nutritional / Prandial insulin per carb ratio of 1 unit per 15 grams CHO consumed PLAN FOR DISCHARGE: * Continue outpatient regimen and follow up with outpatient provider regarding hypoglycemia on admission (BSG 62mg/dl)
[2019-08-03] MEDS ORDERED: EPOETIN ALFA 14,000 UNITS in SYRINGE 0 ML IV ONE (08:00)
[2019-08-03] MEDS ORDERED: IRON SUCROSE 100 MG in SYRINGE 0 ML IV ONE (08:00)
[2019-08-03] MEDS: INSULIN ASPART 100 UNITS/ML 3 ML PEN SC SCH ×4 (08:51→20:51)
[2019-08-03] MEDS: LACTOBACILLUS ACIDOPHILUS (FLORANEX) TAB PO SCH ×4 (08:53→20:53)
[2019-08-03] MEDS: METOPROLOL SUCC 25MG EXT REL TAB PO SCH (08:53)
--- NOTE | 2019-08-03 11:51 | Hospitalist Progress Note ---
Date of Service August 03, 2019 Assessment & Plan (1) Acute respiratory failure with hypoxia: 78-year-old female with history of ESRD, CHF systolic and diastolic type, diabetes type 2, DVT on Coumadin, presenting with shortness of breath. (1) Acute respiratory failure with hypoxia, likely multifactorial --weaned off nasal cannula, now saturating well on room air Volume overload , secondary to systolic and diastolic CHF, ESRD on hemodialysis (EF 25-29%, grade II diastolic dysfunction) --Repeat chest x-ray: Still showing pulmonary edema pattern, possible right- sided pleural effusion --Management of HD per nephrology service Possible pneumonia -CXR shows questionable infiltrate -procalc 5.77 --Blood cultures negative so far --Patient remains afebrile no leukocytosis --Continue Zosyn --Chest x-ray per above Consider CT chest tomorrow Influenza A infection --Continue Tamiflu day #4 Metabolic encephalopathy, likely secondary to pneumonia, influenza infection, hypoglycemia -head CT negative for intracranial findings; does show signs of acute right maxillary sinusitis --Patient drowsy again this morning, improved later in the afternoon DC gabapentin --Management of infections per above --Management of diabetes type 2 noted below Pancytopenia --WBC, platelets improving No signs of bleeding --Peripheral smear: Nonspecific findings, no signs of dysplasia --Continue to hold Coumadin for now for platelet count 60 K --Likely secondary to underlying infection, will continue to monitor CBC Supratherapeutic INR --INR increasing further now 5.4 No signs of bleeding --Could be secondary to concomitant use of antibiotics, CHF decompensation Discussed with Dr. Salazar, recommendation at this point is to administer vitamin K 2 mg IV 1 dose Monitor closely, monitor INR History of DVT (deep vein thrombosis): -Left Upper Extremity DVT in the past although recent admission shows general resolution of blood clots -on Coumadin, INR 5.4 -Hold Coumadin, vitamin K IV given today 08/02/2019 --INR down to 2.2 Hold Coumadin in light of thrombocytopenia, repeat INR tomorrow Elevated troponin likely due to demand ischemia from volume overload and hypoxia -mild trop elevation 0.276 -no reported chest pain -EKG unchanged -troponin 0.3 to 0.3 to 0.2 Diabetes mellitus type 2, insulin dependent: -hgb a1c 6.6 02/2019 -glucose 62 on labs on admission -Pharmacy glycemic control place Peripheral neuropathy: -Hold gabapentin in light of drowsiness Hyperlipidemia: -continue statin GERD (gastroesophageal reflux disease): -continue PPI Hypothyroidism: -continue levothyroxine DVT prophylaxis: INR 2.2 Hold Coumadin Disposition pending Admission and Anticipated Discharge Date Admission Date: July 31, 2019 Subjective Follow-up for hypoxic respiratory failure, pneumonia, volume overload Seen sleeping, comfortable, awakened with verbal and tactile stimuli Patient is drowsy, drifts back to sleep Able to nod to questions Not in distress Did not eat breakfast as per staff analyst Checked with RN in the afternoon, patient more awake and alert Had dinner No issues Review of Systems Review of Systems: All systems reviewed & are unremarkable except as noted in HPI & below Physical Exam Physical Exam: General-drowsy but not in distress, no accessory muscle use or effort with breathing Eyes- anicteric Neck- no JVD Lungs-positive mild rales bilaterally, no wheezing Heart- normal rate, regular rhythm; no murmurs Abdomen- normal bowel sounds, nondistended, soft, nontender Extremities-trace pretibial edema, no calf tenderness Neuro drowsy Skin- warm & dry Results & Data ([facility]) Vital Signs (Past 12 Hours) Vital Signs Temp Pulse Pulse Pulse Resp BP BP 08/03/19 11:00 36.5 C 68 18 106/64 08/03/19 07:27 36.4 C L 75 19 121/64 08/03/19 04:22 36.4 C L 75 19 112/60 08/03/19 00:20 78 14 134/51 L Pulse Ox 08/03/19 11:00 100 08/03/19 07:27 98 08/03/19 04:22 98 08/03/19 00:20 96 Laboratory Results Laboratory Results - last 24 hr 08/02/19 08/03/19 08/03/19 20:53 06:04 06:04 WBC 4.78 L RBC 3.01 L Hgb 9.4 L Hct 29.9 L MCV 99.3 MCH 31.2 MCHC 31.4 L RDW Std Deviation 72.4 H RDW Coeff of Archana 20.2 H Plt Count 73 L MPV 11.4 H Immature Gran % (Auto) 0.0 Neut % (Auto) 54.2 Lymph % (Auto) 32.2 [place] % (Auto) 11.1 Eos % (Auto) 2.1 Baso % (Auto) 0.4 Immature Gran # (Auto) 0.00 Neut # (Auto) 2.59 Lymph # (Auto) 1.54 [place] # (Auto) 0.53 Eos # (Auto) 0.10 Baso # (Auto) 0.02 Anisocytosis Present PT 20.9 H INR 2.2 H ABG pH ABG pCO2 ABG pO2 ABG HCO3 ABG O2 Saturation ABG Base Excess Antonio Test Barometric Pressure Oxygen Given Sodium Potassium Chloride Carbon Dioxide Anion Gap BUN Creatinine Est Cr Clr Drug Dosing Est GFR ( Amer) Est GFR (Non-Af Amer) BUN/Creatinine Ratio Glucose POC Glucose 146 H Calcium 08/03/19 08/03/19 08/03/19 06:04 07:25 11:02 WBC RBC Hgb Hct MCV MCH MCHC RDW Std Deviation RDW Coeff of Archana Plt Count MPV Immature Gran % (Auto) Neut % (Auto) Lymph % (Auto) [place] % (Auto) Eos % (Auto) Baso % (Auto) Immature Gran # (Auto) Neut # (Auto) Lymph # (Auto) [place] # (Auto) Eos # (Auto) Baso # (Auto) Anisocytosis PT INR ABG pH ABG pCO2 ABG pO2 ABG HCO3 ABG O2 Saturation ABG Base Excess Antonio Test Barometric Pressure Oxygen Given Sodium 129 L Potassium 3.5 Chloride 93 L Carbon Dioxide 28 Anion Gap 8.0 BUN 32 H Creatinine 4.46 H D Est Cr Clr Drug Dosing 10.5 Est GFR ( Amer) 10.1 Est GFR (Non-Af Amer) 8.7 BUN/Creatinine Ratio 7.1 L Glucose 120 H POC Glucose 129 H 137 H Calcium 7.9 L 08/03/19 08/03/19 12:50 16:30 WBC RBC Hgb Hct MCV MCH MCHC RDW Std Deviation RDW Coeff of Archana Plt Count MPV Immature Gran % (Auto) Neut % (Auto) Lymph % (Auto) [place] % (Auto) Eos % (Auto) Baso % (Auto) Immature Gran # (Auto) Neut # (Auto) Lymph # (Auto) [place] # (Auto) Eos # (Auto) Baso # (Auto) Anisocytosis PT INR ABG pH 7.33 L ABG pCO2 47 H ABG pO2 83 ABG HCO3 25 H ABG O2 Saturation 95.8 H ABG Base Excess -1.6 Antonio Test Pos Barometric Pressure 726.8 Oxygen Given 4 L Sodium Potassium Chloride Carbon Dioxide Anion Gap BUN Creatinine Est Cr Clr Drug Dosing Est GFR ( Amer) Est GFR (Non-Af Amer) BUN/Creatinine Ratio Glucose POC Glucose 143 H Calcium
[2019-08-03] MEDS: LEVALBUTEROL 1.25MG/0.5ML NEB NEB SCH ×2 (12:59→22:09)
[2019-08-03 13:02] LABS: Base Excess ABG -1.6 mEq/L (-9-1.8); HCO3 ABG 25 mmol/L (19-24); Oxygen Saturation ABG 95.8 % (90-95); PCO2 ABG 47 mmHg (35-46); PO2 ABG 83 mmHg (80-95); pH ABG 7.33 (7.35-7.45)
[2019-08-03 13:03] LABS: Allen Test Pos (Pos)
[2019-08-03] MEDS: ACETAMINOPHEN 325 MG TAB PO PRN ×2 (17:09→20:52)
[2019-08-03] MEDS: OSELTAMIVIR PHOSPHATE SUSP 30 MG/5 ML UDP PO SCH (17:22)
--- NOTE | 2019-08-03 19:37 | Dialysis Progress Note ---
Date of Service August 03, 2019 Assessment & Plan (1) Acute respiratory failure with hypoxia: Patient tested positive for flu Tuesday. Generally does not require oxygen. Today she is on 2 L of oxygen; down from 4L earlier. Had 2.5 L fluid removed on 07/31; had 3.5 L removed today w/ improved breathing -on oseltamivir; also on zosyn for possible PNA (2) Volume overload: a chronic issue for her. has had 10 L fluid removed first 3 days of this week; on track today for another 4L -Plan next dialysis -- an extra tx to help optimize vluid status continue strict 1.2 L fluid limit (3) ESRD (end stage renal disease) on dialysis: Tuesday via AV fistula: Next treatment (extra tx to optimize vol status) -Daily BMP and CBC please (4) Anemia: Anemia of chronic disease. Transferrin saturation July 25 was 12%. She had been undergoing an IV iron load. also epo w/ tx Subjective seen on dialysis this evening; moaning on tx as she often does and c/o thirst. states her breathing at baseline; no n/v Review of Systems Review of Systems: Other (limited b/c pt hard of hearing) Physical Exam Constitutional: well developed, well nourished and + morbidly obese; no acute distress Eyes: EOM intact bilaterally ENMT: Ears: + hearing impairment; no external ear abnormality Nose: no external nose abnormality Mouth: + dry oral mucous membranes Neck: no nuchal rigidity Respiratory: normal respiratory effort; no respiratory distress Auscultation: + diminished lung sounds Cardiovascular: Rate/Rhythm: regular rate and regular rhythm Extremities: + edema (Trace bilateral lower extremities) and + AV fistula (Positive thrill and bruit) Gastrointestinal (Abdomen): Inspection/Auscultation: normal bowel sounds Percussion/Palpation: abdomen soft; abdomen nontender Musculoskeletal: Extremities: strength 5/5 throughout Skin: no rashes, warm and dry Psychiatric: Orientation: alert, oriented to person, oriented to place and cooperative Speech: normal rate/rhythm/volume of speech Affect: euthymic affect Results & Data Vital Signs (Past 12 Hours) Vital Signs Temp Pulse Pulse Pulse Pulse Resp BP 08/03/19 19:21 94 H 126/48 L 08/03/19 19:16 94 H 118/48 L 08/03/19 18:40 94 H 112/49 L 08/03/19 18:20 94 H 108/42 L 08/03/19 18:00 94 H 110/48 L 08/03/19 17:40 94 H 112/49 L 08/03/19 17:20 94 H 117/50 L 08/03/19 17:00 94 H 129/50 L 08/03/19 16:40 94 H 116/50 L 08/03/19 16:00 37.0 C 95 H 08/03/19 15:34 36.6 C 86 23 08/03/19 13:02 83 20 08/03/19 11:00 36.5 C 68 18 BP Pulse Ox 08/03/19 19:21 08/03/19 19:16 08/03/19 18:40 08/03/19 18:20 08/03/19 18:00 08/03/19 17:40 08/03/19 17:20 08/03/19 17:00 08/03/19 16:40 08/03/19 16:00 08/03/19 15:34 145/51 H 100 08/03/19 13:02 95 08/03/19 11:00 106/64 100 Laboratory Results 08/03/19 06:04 08/03/19 06:04 (1) Anemia Anemia type: unspecified type Qualified Code(s): D64.9 - Anemia, unspecified (2) Volume overload Hypervolemia type: other Qualified Code(s): E87.79 - Other fluid overload
[2019-08-03] MEDS: ATORVASTATIN 10 MG TAB PO SCH (20:53)
[2019-08-03] MEDS: PANTOprazole 40 MG TAB PO SCH (20:53)
[2019-08-04] MEDS: LEVALBUTEROL 1.25MG/0.5ML NEB NEB SCH ×4 (01:12→14:57)
[2019-08-04 06:04] LABS: Hematocrit (blood only) 30.3 % (37-47); Hemoglobin 9.5 g/dL (12.0-16.0); Mean Corpuscular Hemoglobin 30.9 pg (25-34); Mean Corpuscular Hgb Conc 31.4 g/dL (32-36); Mean Corpuscular Volume 98.7 fL (80-100); RDW Coefficient of Variation 20.2 % (11.5-14.5); RDW Standard Deviation 72.6 fL (36.4-46.3); Red Blood Count 3.07 M/uL (4.2-5.4); White Blood Count 5.07 K/uL (4.8-10.8)
[2019-08-04 06:05] LABS: Mean Platelet Volume 11.3 fL (7.4-10.4); Platelet Count 84 K/uL (130-400)
[2019-08-04 06:12] LABS: INR 1.5 (0.9-1.1); Prothrombin Time 15.4 Seconds (9.0-12.0)
[2019-08-04] MEDS: PIPERACILLIN/TAZOBACTAM 3.375 GM in DEXTROSE 5% 100 ML IV SCH ×2 (06:38→17:38)
[2019-08-04 06:48] LABS: BUN Creatinine Ratio 6.2 (10-20); Calcium 8.2 mg/dl (8.5-10.1); Creatinine Clr Calc Pharmacy 10.5 ml/min; Est GFR (African American) 10.3; Est GFR (Non-African American) 8.9; Potassium 3.9 mmol/L (3.5-5.1)
[2019-08-04] MEDS ORDERED: SODIUM CHLORIDE 0.9% 1000ML 1,000 ML IV PRN (07:00)
[2019-08-04] MEDS ORDERED: IRON SUCROSE 100 MG in SYRINGE 0 ML IV ONE (07:00)
[2019-08-04] MEDS ORDERED: ALBUMIN 25% 50 ML IV SCH ×2 (07:00→07:30)
[2019-08-04] MEDS ORDERED: EPOETIN ALFA 10,000 UNITS/ML VIAL IV ONE (07:00)
[2019-08-04] MEDS ORDERED: EPOETIN ALFA 14,000 UNITS in SYRINGE 0 ML IV SCH (07:00)
[2019-08-04 07:08] LABS: ANC (manual) 2.64 K/uL (1.4-6.5); Anisocytosis Present; Eosinophils # (manual) 0.05 K/uL (0-0.5); Eosinophils % (manual) 0.9 %; Large Granular Lymph # (manua 1.59 K/uL; Large Granular Lymph % (manual) 31.3 %; Lymphocytes # (manual) 0.35 K/uL (1.2-3.4); Monocytes # (manual) 0.44 K/uL (0.11-0.59); Monocytes % (manual) 8.7 %; Neutrophils # (manual) 2.64 K/uL (1.4-6.5); Neutrophils % (manual) 52.1 %; Ovalocytes 1+
[2019-08-04] MEDS: INSULIN ASPART 100 UNITS/ML 3 ML PEN SC SCH ×4 (07:39→20:13)
[2019-08-04] MEDS: LACTOBACILLUS ACIDOPHILUS (FLORANEX) TAB PO SCH ×4 (07:39→20:14)
[2019-08-04] MEDS: METOPROLOL SUCC 25MG EXT REL TAB PO SCH (12:41)
[2019-08-04] MEDS: ACETYLCYSTEINE 10% INHAL SOLN 4 ML **DISPENSED BY RESP. INH SCH ×2 (12:52→19:30)
[2019-08-04] MEDS ORDERED: methylPREDNISolone 40 MG in SYRINGE 0 ML IV STA (12:55)
[2019-08-04] MEDS: guaiFENesin 600 MG TABCR PO SCH ×2 (13:13→20:13)
--- NOTE | 2019-08-04 13:39 | CT Scan Report ---
CT SCAN OF THE CHEST WITHOUT IV CONTRAST CLINICAL HISTORY: Wheezing. COMPARISON STUDY: Chest x-ray dated 07/26/2019. Chest CT dated 06/28/2019. TECHNIQUE: CT scan of the thorax was performed from the thoracic inlet to the upper abdomen. Images are reviewed in the axial, sagittal, and coronal planes. IV contrast was not administered for this ex amination as per the referring clinician. A dose lowering technique was utilized adhering to the [facility] y[facility] CARVER. The examination is significantly compromised by motion artifact. CT DOSE: 791.03 mGy.cm FINDINGS: Thyroid: Atrophic and heterogeneous. Thoracic aorta: There is mild atherosclerotic calcification of the thoracic aorta, which is normal in caliber and demonstrates standard 3-vessel arch anatomy. Heart: The heart is markedly enlarged and without pericardial effusion. There are coronary artery sharon cifications. The pulmonary trunk is dilated measuring 3.4 cm in diameter. This suggests pulmonary art peggy hypertension. Lungs and pleural spaces: Evaluation of the lung parenchyma is significantly degraded by motion artif act. There are moderate to large right and trace left pleural effusions with associated atelectasis. Intralobular septal thickening is noted throughout both lungs. Mild patchy groundglass change is pres ent in the upper lobes bilaterally. The trachea and central airways appear clear. Mediastinum: There is no mediastinal lymphadenopathy. Cori: Not well assessed without IV contrast. Axillae: There is no axillary lymphadenopathy. Upper abdomen: Partially visualized upper abdominal viscera is grossly unremarkable. Skeletal structures: The skeletal structures are osteopenic. Degenerative change and mild hyperkyphos is are noted in the thoracic spine. Postoperative change is partially visualized and left proximal hu merus. No lytic or blastic bony lesions are seen. IMPRESSION: 1. Significantly motion compromised examination. 2. Marked cardiomegaly. Intralobular septal thickening suggests congestive failure. 3. Moderate to large right and trace left pleural effusions. The right pleural effusion has increased in size from 06/28/2019. 4. Mild patchy groundglass change is seen throughout both upper lobes. This could represent a compone nt of interstitial edema and/or a mild infectious/inflammatory pneumonitis. Clinical correlation will be required. ACT 112: Negative or not required by law. Electronically signed by: Lenin Cohen M.D. 08/04/2019 1:37 PM
--- NOTE | 2019-08-04 14:44 | Pharmacy Report ---
Pharmacy Glycemic Short Note 2 - Date of Service August 04, 2019 - Glycemic Short BSG Results (Last 24 hours): 08/03/19 08/03/19 08/04/19 16:30 20:39 05:48 Glucose 133 H POC Glucose 143 H 143 H 08/04/19 08/04/19 07:18 12:28 Glucose POC Glucose 122 H 133 H OUTPATIENT ANTIDIABETIC REGIMEN: * NPH/Reg 70/30 13 units BIDM + regular sliding scale * A1c = 6.6 % 07/31/19 Risk Factors for Insulin Resistance: * Infection: Flu +, zosyn * Diet: dialysis diet * Steroids: Solumedrol 40 mg x 1 dose this afternoon ASSESSMENT: 08/04/19 * BSGs have been well controlled * Using 1-5 units of Novolog per day, no basal insulin * Anticipate BSGs to increase s/p steroid administration; therefore, will tighten CR 08/03/19 * Patient has used 5 units of novolog in past 24 hours, blood sugars ranging 101-147mg/dl. * HD today * No basal needed in past 3 days, discontinue * No further changes at this time 07/31/19 * 78 yo female from [facility] presenting with hypoxia, ESRD w/ dialysis MoWeThFr per hospitalist, an additional dialysis session today. Flu + pcr. Currently on zosyn for questionable infiltrate. MRSA negative * Patient was hypoglycemic on admission, with last insulin administration ye evening * 220 at lunch after administration of Dextrose, currently NPO. Will give reduced lantus dose with 1800 check if still elevated, patient undergoing dialysis at this time. Will use lantus over NPH to avoid peak while in NPO status PLAN FOR INPATIENT GLYCEMIC CONTROL: * Bolus insulin - tighten CR * NovoLog per scale ACHS or Q6hrs while NPO * Goal Range: Low 120 mg/dL - High 160 mg/dL - higher goal range to avoid hypoglycemia in HD pt * Correction Factor: 25 mg/dL/unit * Nutritional / Prandial insulin per carb ratio of 1 unit per 8 grams CHO consumed PLAN FOR DISCHARGE: * Continue outpatient regimen and follow up with outpatient provider regarding hypoglycemia on admission (BSG 62mg/dl)
[2019-08-04] MEDS: OSELTAMIVIR PHOSPHATE SUSP 30 MG/5 ML UDP PO SCH (15:36)
[2019-08-04] MEDS: LEVALBUTEROL HCL 1.25 MG/3 ML NEB NEB SCH ×2 (19:31→22:21)
[2019-08-04] MEDS: ACETAMINOPHEN 325 MG TAB PO PRN (20:12)
[2019-08-04] MEDS: PANTOprazole 40 MG TAB PO SCH (20:14)
[2019-08-04] MEDS: ATORVASTATIN 10 MG TAB PO SCH (20:14)
--- NOTE | 2019-08-04 20:46 | Hospitalist Progress Note ---
Date of Service August 04, 2019 Assessment & Plan Admission and Anticipated Discharge Date Admission Date: July 31, 2019 Results & Data ([facility]) Vital Signs (Past 12 Hours) Vital Signs Temp Pulse Pulse Pulse Resp BP BP 08/04/19 19:36 98 H 20 08/04/19 18:50 36.2 C L 96 H 20 121/71 08/04/19 15:11 36.7 C 88 20 118/65 08/04/19 15:00 87 20 08/04/19 12:53 100 H 20 08/04/19 12:35 36.3 C L 98 H 150/58 H 08/04/19 12:00 97 H 131/55 L 08/04/19 11:40 93 H 136/59 L 08/04/19 11:20 94 H 124/65 08/04/19 11:00 95 H 127/53 L 08/04/19 10:40 95 H 141/58 H 08/04/19 10:20 94 H 127/50 L 08/04/19 10:00 95 H 127/58 L 08/04/19 09:40 94 H 135/50 L 08/04/19 09:20 90 146/62 H 08/04/19 08:55 36.5 C 96 H Pulse Ox 08/04/19 19:36 98 08/04/19 18:50 94 08/04/19 15:11 93 08/04/19 15:00 90 08/04/19 12:53 99 08/04/19 12:35 08/04/19 12:00 08/04/19 11:40 08/04/19 11:20 08/04/19 11:00 08/04/19 10:40 08/04/19 10:20 08/04/19 10:00 08/04/19 09:40 08/04/19 09:20 08/04/19 08:55
--- NOTE | 2019-08-04 20:47 | Hospitalist Progress Note ---
Date of Service delayed entry date of service noted below August 04, 2019 Assessment & Plan (1) Acute respiratory failure with hypoxia: 78-year-old female with history of ESRD, CHF systolic and diastolic type, diabetes type 2, DVT on Coumadin, presenting with shortness of breath. (1) Acute respiratory failure with hypoxia, likely multifactorial --weaned off nasal cannula, now saturating well on room air Volume overload , secondary to systolic and diastolic CHF, ESRD on hemodialysis (EF 25-29%, grade II diastolic dysfunction) --Repeat chest x-ray: Still showing pulmonary edema pattern, possible right- sided pleural effusion --Management of HD per nephrology service Possible pneumonia -CXR shows questionable infiltrate -procalc 5.77 --Blood cultures negative so far --Patient remains afebrile no leukocytosis --Continue Zosyn -- CT chest ordered Solumedrol 40mg IV one dose ordered Influenza A infection --Continue Tamiflu day #5 Metabolic encephalopathy, likely secondary to pneumonia, influenza infection, hypoglycemia -- head CT negative for intracranial findings; does show signs of acute right maxillary sinusitis -- mental status improved after stopping Gabapenting --Management of infections per above --Management of diabetes type 2 noted below Pancytopenia --WBC, platelets improving No signs of bleeding --Peripheral smear: Nonspecific findings, no signs of dysplasia --Continue to hold Coumadin for now for platelet count 60 K --Likely secondary to underlying infection, will continue to monitor CBC Supratherapeutic INR --INR increasing further now 5.4 No signs of bleeding --Could be secondary to concomitant use of antibiotics, CHF decompensation Discussed with Dr. Salazar, recommendation at this point is to administer vitamin K 2 mg IV 1 dose Monitor closely, monitor INR History of DVT (deep vein thrombosis): -Left Upper Extremity DVT in the past although recent admission shows general resolution of blood clots -on Coumadin, INR 5.4 -Hold Coumadin, vitamin K IV given 08/02/2019 --INR down to 2.2 Hold Coumadin in light of thrombocytopenia, repeat INR tomorrow Elevated troponin likely due to demand ischemia from volume overload and hypoxia -mild trop elevation 0.276 -no reported chest pain -EKG unchanged -troponin 0.3 to 0.3 to 0.2 Diabetes mellitus type 2, insulin dependent: -hgb a1c 6.6 02/2019 -glucose 62 on labs on admission -Pharmacy glycemic control place Peripheral neuropathy: -Hold gabapentin in light of drowsiness Hyperlipidemia: -continue statin GERD (gastroesophageal reflux disease): -continue PPI Hypothyroidism: -continue levothyroxine DVT prophylaxis: INR 1.5 Hold Coumadin Disposition pending Admission and Anticipated Discharge Date Admission Date: July 31, 2019 Subjective ff up for volume overload, flu, pneumonia seen resting in bed, comfortable just had HD alert, oriented x 1-2 states she feels fine overall denies shortness of breath no other symptoms Review of Systems Review of Systems: All systems reviewed & are unremarkable except as noted in HPI & below Physical Exam Physical Exam: General- oriented x 1-2, not in distress, speaks in sentences with no effort or accessory muscle use Eyes- anicteric Neck- no JVD Lungs- decreased breath sounds left base (+) mild diffuse wheeze BL Heart- normal rate, regular rhythm; no murmurs Abdomen- normal bowel sounds, nondistended, soft, nontender Extremities- no pretibial edema, no calf tenderness Neuro- alert, oriented x 1-2; no gross focal neurologic deficits Skin- warm & dry Results & Data ([facility]) Vital Signs (Past 12 Hours) Vital Signs Temp Pulse Pulse Pulse Resp BP BP 08/04/19 19:36 98 H 20 08/04/19 18:50 36.2 C L 96 H 20 121/71 08/04/19 15:11 36.7 C 88 20 118/65 08/04/19 15:00 87 20 08/04/19 12:53 100 H 20 08/04/19 12:35 36.3 C L 98 H 150/58 H 08/04/19 12:00 97 H 131/55 L 08/04/19 11:40 93 H 136/59 L 08/04/19 11:20 94 H 124/65 08/04/19 11:00 95 H 127/53 L 08/04/19 10:40 95 H 141/58 H 08/04/19 10:20 94 H 127/50 L 08/04/19 10:00 95 H 127/58 L 08/04/19 09:40 94 H 135/50 L 08/04/19 09:20 90 146/62 H 08/04/19 08:55 36.5 C 96 H Pulse Ox 08/04/19 19:36 98 08/04/19 18:50 94 08/04/19 15:11 93 08/04/19 15:00 90 08/04/19 12:53 99 08/04/19 12:35 08/04/19 12:00 08/04/19 11:40 08/04/19 11:20 08/04/19 11:00 08/04/19 10:40 08/04/19 10:20 08/04/19 10:00 08/04/19 09:40 08/04/19 09:20 08/04/19 08:55
[2019-08-05] MEDS: LEVALBUTEROL HCL 1.25 MG/3 ML NEB NEB SCH ×4 (02:13→19:25)
[2019-08-05] MEDS: PIPERACILLIN/TAZOBACTAM 3.375 GM in DEXTROSE 5% 100 ML IV SCH (05:41)
[2019-08-05 06:17] LABS: Hematocrit (blood only) 29.9 % (37-47); Hemoglobin 9.4 g/dL (12.0-16.0); Mean Corpuscular Hemoglobin 31.4 pg (25-34); Mean Corpuscular Hgb Conc 31.4 g/dL (32-36); RDW Coefficient of Variation 20.6 % (11.5-14.5); RDW Standard Deviation 74.2 fL (36.4-46.3); Red Blood Count 2.99 M/uL (4.2-5.4); White Blood Count 3.62 K/uL (4.8-10.8)
[2019-08-05 06:24] LABS: INR 1.5 (0.9-1.1); Mean Platelet Volume 11.3 fL (7.4-10.4); Platelet Count 79 K/uL (130-400); Prothrombin Time 15.3 Seconds (9.0-12.0)
[2019-08-05 06:41] LABS: Anisocytosis Present; Basophils # (auto) 0.01 K/uL (0-0.2); Basophils % (auto) 0.3 %; Eosinophils # (auto) 0.01 K/uL (0-0.5); Eosinophils % (auto) 0.3 %; Immature Granulocytes # (auto) 0.02 K/uL (0.00-0.02); Immature Granulocytes % (auto) 0.6 %; Lymphocytes # (auto) 0.33 K/uL (1.2-3.4); Lymphocytes % (auto) 9.1 %; Monocytes # (auto) 0.12 K/uL (0.11-0.59); Monocytes % (auto) 3.3 %; Neutrophils # (auto) 3.13 K/uL (1.4-6.5); Neutrophils % (auto) 86.4 %; Ovalocytes 1+
[2019-08-05 06:50] LABS: BUN Creatinine Ratio 4.9 (10-20); Calcium 8.9 mg/dl (8.5-10.1); Creatinine Clr Calc Pharmacy 13.3 ml/min; Est GFR (African American) 13.8; Est GFR (Non-African American) 11.9
[2019-08-05] MEDS: ACETYLCYSTEINE 10% INHAL SOLN 4 ML **DISPENSED BY RESP. INH SCH ×2 (07:01→19:25)
[2019-08-05] MEDS: LACTOBACILLUS ACIDOPHILUS (FLORANEX) TAB PO SCH ×4 (07:33→21:24)
[2019-08-05] MEDS: METOPROLOL SUCC 25MG EXT REL TAB PO SCH (07:36)
[2019-08-05] MEDS: guaiFENesin 600 MG TABCR PO SCH ×2 (07:36→21:25)
[2019-08-05] MEDS: INSULIN ASPART 100 UNITS/ML 3 ML PEN SC SCH ×4 (07:40→21:24)
--- NOTE | 2019-08-05 11:58 | Pharmacy Report ---
Pharmacy Glycemic Short Note 2 - Date of Service August 05, 2019 - Glycemic Short BSG Results (Last 24 hours): 08/04/19 08/04/19 08/04/19 12:28 16:10 20:02 Glucose POC Glucose 133 H 219 H 201 H 08/05/19 08/05/19 08/05/19 05:17 05:41 07:19 Glucose 228 H POC Glucose 232 H 230 H 08/05/19 11:02 Glucose POC Glucose 201 H OUTPATIENT ANTIDIABETIC REGIMEN: * NPH/Reg 70/30 13 units BIDM + regular sliding scale * A1c = 6.6 % 07/31/19 Risk Factors for Insulin Resistance: * Infection: Flu, pneumonia * Diet: dialysis diet * Steroids: Solumedrol 40 mg x 1 dose given yesterday afternoon ASSESSMENT: 08/05/19 * BSGs have increased as anticipated from the single dose of steroids * Silva has continued to have BSGs > 200 mg/dL through lunch today (using double the carb coverage for the steroid effects) * Anticipate glycemic effects to dissipate around dinner/HS today so will loosen CR at that time 08/04/19 * BSGs have been well controlled * Using 1-5 units of Novolog per day, no basal insulin * Anticipate BSGs to increase s/p steroid administration; therefore, will tighten CR 08/03/19 * Patient has used 5 units of novolog in past 24 hours, blood sugars ranging 101-147mg/dl. * HD today * No basal needed in past 3 days, discontinue * No further changes at this time 07/31/19 * 78 yo female from [facility] presenting with hypoxia, ESRD w/ dialysis MoWeThFr per hospitalist, an additional dialysis session today. Flu + pcr. Currently on zosyn for questionable infiltrate. MRSA negative * Patient was hypoglycemic on admission, with last insulin administration yester day evening * 220 at lunch after administration of Dextrose, currently NPO. Will give reduced lantus dose with 1800 check if still elevated, patient undergoing dialysis at this time. Will use lantus over NPH to avoid peak while in NPO status PLAN FOR INPATIENT GLYCEMIC CONTROL: * Bolus insulin - loosen CR starting with dinner, tighten upper end of goal rang e slightly in the setting of hyperglycemia * NovoLog per scale ACHS or Q6hrs while NPO * Goal Range: Low 120 mg/dL - High 150 mg/dL - higher goal range to avoid hypoglycemia in HD pt * Correction Factor: 25 mg/dL/unit * Nutritional / Prandial insulin per carb ratio of 1 unit per 8 grams CHO consumed -> 1 unit per 15 gm CHO starting with dinner PLAN FOR DISCHARGE: * Patient's A1c = 6.6% 02/28/19 * However, this result is likely somewhat unreliable in ESRD patients d/t interactions between the A1c analyzing technique and high levels of urea in ESRD, reduced RBC life span, iron deficiency anemia, and EPO administration. HbA1c > 7.5% in ESRD patient may overestimate the extent of hyperglycemia in ESRD patients. * Patient did present with hypoglycemia on admission and has not required any basal insulin during her stay here. Appears she is likely going to [facility] on discharge. May consider discharging on sliding scale insulin only if requirement remains low.
[2019-08-05] MEDS: predniSONE 20 MG TAB PO SCH (14:24)
[2019-08-05] MEDS: guaiFENesin SUGAR FREE 200 MG/10 ML UDC PO PRN (14:25)
[2019-08-05] MEDS ORDERED: INSULIN HUMAN NPH SC ONE (14:30)
--- NOTE | 2019-08-05 17:34 | Hospitalist Progress Note ---
Date of Service August 05, 2019 Assessment & Plan (1) Acute respiratory failure with hypoxia: 78-year-old female with history of ESRD, CHF systolic and diastolic type, diabetes type 2, DVT on Coumadin, presenting with shortness of breath. (1) Acute respiratory failure with hypoxia, likely multifactorial --weaned off nasal cannula, now saturating well on room air Volume overload , secondary to systolic and diastolic CHF, ESRD on hemodialysis (EF 25-29%, grade II diastolic dysfunction) --Repeat chest x-ray: Still showing pulmonary edema pattern, possible right- sided pleural effusion --Management of HD per nephrology service Possible pneumonia -CXR shows questionable infiltrate -procalc 5.77 --Blood cultures negative so far --Patient remains afebrile no leukocytosis -- CT chest ordered: (+) significant right pleural effusion change Zosyn to Doxy continue Nebs Prednisone 40mg po daily x 3 days monitor Influenza A infection --Continue Tamiflu day #6/7 Metabolic encephalopathy, likely secondary to pneumonia, influenza infection, hypoglycemia -- head CT negative for intracranial findings; does show signs of acute right maxillary sinusitis -- mental status improved after stopping Gabapentin --Management of infections per above --Management of diabetes type 2 noted below Pancytopenia --WBC, platelets improving No signs of bleeding --Peripheral smear: Nonspecific findings, no signs of dysplasia --Continue to hold Coumadin for now for platelet count 60 K --Likely secondary to underlying infection, will continue to monitor CBC Supratherapeutic INR --INR increased further to 5.4 No signs of bleeding --Could be secondary to concomitant use of antibiotics, CHF decompensation Discussed with Dr. Salazar, recommendation at this point is to administer vitamin K 2 mg IV 1 dose -- INR now 1.5 History of DVT (deep vein thrombosis): -Left Upper Extremity DVT in the past although recent admission shows general resolution of blood clots -on Coumadin, INR 5.4 -Hold Coumadin, vitamin K IV given 08/02/2019 --INR down to 1.5 Hold Coumadin in light of thrombocytopenia, repeat INR tomorrow -- start heparin 5k q12h Elevated troponin likely due to demand ischemia from volume overload and hypoxia -mild trop elevation 0.276 -no reported chest pain -EKG unchanged -troponin 0.3 to 0.3 to 0.2 Diabetes mellitus type 2, insulin dependent: -hgb a1c 6.6 02/2019 -glucose 62 on labs on admission -Pharmacy glycemic control Peripheral neuropathy: -Hold gabapentin- causes drowsiness Hyperlipidemia: -continue statin GERD (gastroesophageal reflux disease): -continue PPI Hypothyroidism: -continue levothyroxine DVT prophylaxis: INR 1.5 Hold Coumadin -- Heparin SC q12h Disposition pending Admission and Anticipated Discharge Date Admission Date: July 31, 2019 Subjective ff up for hypoxia, volume overload, pneumonia, flu seen with at bedside alert, awake, oriented x 2, answers most questions appropriately states she feels fine overall denies shortness of breath, cough no other symptoms Review of Systems Review of Systems: All systems reviewed & are unremarkable except as noted in HPI & below Physical Exam Physical Exam: General- oriented x 2, not in distress, speaks in sentences with no effort or accessory muscle use Eyes- anicteric Neck- no JVD Lungs-decreased breath sounds right base mild wheeze b/l Heart- normal rate, regular rhythm; no murmurs Abdomen- normal bowel sounds, nondistended, soft, nontender Extremities- no pretibial edema, no calf tenderness Neuro- alert, oriented x 2; no gross focal neurologic deficits Skin- warm & dry Results & Data ([facility]) Vital Signs (Past 12 Hours) Vital Signs Temp Pulse Pulse Resp BP Pulse Ox 08/05/19 15:21 35.5 C L 91 H 20 109/65 98 08/05/19 11:03 36.4 C L 93 H 19 128/72 100 08/05/19 11:01 93 H 18 94 08/05/19 07:20 36.4 C L 100 H 22 119/61 100 08/05/19 07:00 100 H 20 93
[2019-08-05] MEDS ORDERED: HEPARIN SOD 5,000 UNIT/0.5 ML VIAL SQ SCH (21:00)
[2019-08-05] MEDS: DOXYCYCLINE HYCLATE 100 MG CAP PO SCH (21:24)
[2019-08-05] MEDS: ATORVASTATIN 10 MG TAB PO SCH (21:24)
[2019-08-05] MEDS: PANTOprazole 40 MG TAB PO SCH (21:25)
[2019-08-06] MEDS: LEVALBUTEROL HCL 1.25 MG/3 ML NEB NEB SCH ×4 (00:57→19:03)
[2019-08-06] MEDS: ACETYLCYSTEINE 10% INHAL SOLN 4 ML **DISPENSED BY RESP. INH SCH ×2 (06:57→19:03)
[2019-08-06 07:23] LABS: Hematocrit (blood only) 30.4 % (37-47); Hemoglobin 9.7 g/dL (12.0-16.0); Mean Corpuscular Hemoglobin 31.9 pg (25-34); Mean Corpuscular Hgb Conc 31.9 g/dL (32-36); Mean Platelet Volume 12.1 fL (7.4-10.4); Platelet Count 115 K/uL (130-400); RDW Coefficient of Variation 21.4 % (11.5-14.5); RDW Standard Deviation 76.1 fL (36.4-46.3); Red Blood Count 3.04 M/uL (4.2-5.4); White Blood Count 6.19 K/uL (4.8-10.8)
[2019-08-06] MEDS: INSULIN ASPART 100 UNITS/ML 3 ML PEN SC SCH ×4 (07:41→20:43)
[2019-08-06] MEDS: DOXYCYCLINE HYCLATE 100 MG CAP PO SCH ×2 (07:42→20:31)
[2019-08-06] MEDS: guaiFENesin 600 MG TABCR PO SCH ×2 (07:42→20:31)
[2019-08-06] MEDS: predniSONE 20 MG TAB PO SCH (07:42)
[2019-08-06] MEDS: LACTOBACILLUS ACIDOPHILUS (FLORANEX) TAB PO SCH ×4 (07:43→20:31)
[2019-08-06] MEDS: METOPROLOL SUCC 25MG EXT REL TAB PO SCH (07:43)
[2019-08-06 07:45] LABS: INR 1.7 (0.9-1.1); Prothrombin Time 17.2 Seconds (9.0-12.0)
[2019-08-06 07:53] LABS: Anisocytosis Present; Basophils # (auto) 0.01 K/uL (0-0.2); Basophils % (auto) 0.2 %; Echinocytes 1+; Hypochromasia Present; Immature Granulocytes # (auto) 0.01 K/uL (0.00-0.02); Immature Granulocytes % (auto) 0.2 %; Lymphocytes # (auto) 0.49 K/uL (1.2-3.4); Lymphocytes % (auto) 7.9 %; Monocytes % (auto) 4.8 %; Neutrophils # (auto) 5.38 K/uL (1.4-6.5); Neutrophils % (auto) 86.9 %; Toxic Vacuolation 1+
[2019-08-06 08:12] LABS: BUN Creatinine Ratio 6.5 (10-20); Calcium 9.2 mg/dl (8.5-10.1); Creatinine Clr Calc Pharmacy 9.6 ml/min; Est GFR (African American) 9.4; Est GFR (Non-African American) 8.1; Potassium 3.8 mmol/L (3.5-5.1)
[2019-08-06] MEDS ORDERED: INSULIN HUMAN NPH SC SCH (09:00)
--- NOTE | 2019-08-06 14:32 | Nephrology Progress Note ---
Date of Service August 06, 2019 Assessment & Plan (1) Acute respiratory failure with hypoxia: Patient tested positive for flu Tuesday. Generally does not require oxygen. CT chest done on 08/04/2019 showed large right pleural effusion. Had 2.5 L fluid removed on 07/31; had 3.5 L removed today w/ improved breathing -on oseltamivir; also on zosyn for possible PNA -consider pulmonary consultation for possible thoracentesis on the right (2) Volume overload: a chronic issue for her. has had 10 L fluid removed first 3 days of this week; on track today for another 4L -will continue extra dialysis as needed to optimize volume status continue strict 1.2 L fluid limit (3) ESRD (end stage renal disease) on dialysis: Tuesday via AV fistula: She tolerated dialysis well today with net UF of 2 L. -Daily BMP and CBC -next dialysis will be on Tuesday (4) Anemia: Anemia of chronic disease. HGB 9.7 today. Transferrin saturation July 25 was 12%. She had been undergoing an IV iron load. also epo w/ tx Admission and Anticipated Discharge Date Admission Date: July 31, 2019 Subjective Patient was seen and examined while on dialysis. She is tolerating dialysis well. No shortness of breath Review of Systems Review of Systems: All systems reviewed & are unremarkable except as noted in HPI & below Physical Exam 2 Physical Exam: General exam: Appears comfortable, no acute distress HEENT: Pupils are equal and reactive to light Neck: No JVD, neck is supple trachea is midline Respiratory system: Clear breath sounds bilaterally. Gastrointestinal: Abdomen is soft, non distended, non tender, bowel sounds are present CVS: Regular rate and rhythm. No murmurs, rubs or gallops Musculoskeletal: No joint or muscle tenderness Extremities: Non tender, no edema, peripheral pulses are present Neuro: Oriented, no tremors, no focal neurological deficits Skin: No rashes Results & Data ([facility]) Vital Signs (Past 12 Hours) Vital Signs Temp Pulse Pulse Pulse Resp BP BP 08/06/19 13:32 89 20 08/06/19 12:35 36.5 C 98 H 119/62 08/06/19 12:00 84 148/67 H 08/06/19 11:40 96 H 126/63 08/06/19 11:20 88 126/67 08/06/19 11:00 107 H 116/69 03/02/20 10:40 98 H 119/62 08/06/19 10:20 97 H 129/60 08/06/19 10:00 95 H 130/61 08/06/19 09:40 96 H 128/66 08/06/19 09:22 92 H 130/66 08/06/19 09:00 90 139/63 08/06/19 08:44 94 H 124/60 08/06/19 08:34 36.4 C L 95 H 08/06/19 08:00 94 H 08/06/19 07:19 36.8 C 82 20 131/75 08/06/19 06:59 89 18 08/06/19 06:34 36.5 C 88 17 118/68 08/06/19 03:36 36.8 C 88 19 111/67 Pulse Ox 08/06/19 13:32 96 08/06/19 12:35 08/06/19 12:00 08/06/19 11:40 08/06/19 11:20 08/06/19 11:00 08/06/19 10:40 08/06/19 10:20 08/06/19 10:00 08/06/19 09:40 08/06/19 09:22 08/06/19 09:00 08/06/19 08:44 08/06/19 08:34 08/06/19 08:00 08/06/19 07:19 100 08/06/19 06:59 93 08/06/19 06:34 94 08/06/19 03:36 96 Laboratory Results 08/06/19 06:43 08/06/19 06:43 WBC 6.19 RBC 3.04 L MCV 100.0 MCH 31.9 MCHC 31.9 L RDW Std Deviation 76.1 H RDW Coeff of Archana 21.4 H Plt Count 115 L MPV 12.1 H (1) Volume overload Hypervolemia type: other Qualified Code(s): E87.79 - Other fluid overload (2) Anemia Anemia type: unspecified type Qualified Code(s): D64.9 - Anemia, unspecified
[2019-08-06] MEDS: ATORVASTATIN 10 MG TAB PO SCH (20:31)
[2019-08-06] MEDS: PANTOprazole 40 MG TAB PO SCH (20:31)
[2019-08-06] MEDS ORDERED: WARFARIN SOD 2 MG TAB PO SCH (20:50)
--- NOTE | 2019-08-06 20:50 | Hospitalist Progress Note ---
Date of Service August 06, 2019 Assessment & Plan (1) Acute respiratory failure with hypoxia: 78-year-old female with history of ESRD, CHF systolic and diastolic type, diabetes type 2, DVT on Coumadin, presenting with shortness of breath. (1) Acute respiratory failure with hypoxia, likely multifactorial --weaned off nasal cannula, now saturating well on room air Volume overload , secondary to systolic and diastolic CHF, ESRD on hemodialysis (EF 25-29%, grade II diastolic dysfunction) --Repeat chest x-ray: Still showing pulmonary edema pattern, possible right- sided pleural effusion CT chest: Significant right pleural effusion --Management of HD per nephrology service Possible pneumonia -CXR shows questionable infiltrate -procalc 5.77 --Blood cultures negative so far --Patient remains afebrile no leukocytosis -- CT chest ordered: (+) significant right pleural effusion changed Zosyn to Doxy continue Nebs Prednisone 40mg po daily x 3 days --Discussed with nephrology service, will consult pulmonary for evaluation of right pleural effusion, possible thoracentesis Influenza A infection --Continue Tamiflu day #12/10 Metabolic encephalopathy, likely secondary to pneumonia, influenza infection, hypoglycemia -- head CT negative for intracranial findings; does show signs of acute right maxillary sinusitis -- mental status improved after stopping Gabapentin --Management of infections per above --Management of diabetes type 2 noted below Pancytopenia --WBC, platelets improving No signs of bleeding --Peripheral smear: Nonspecific findings, no signs of dysplasia --Resume Coumadin, heparin subcutaneous every 12 hours for DVT prophylaxis --Likely secondary to underlying infection --Continue to monitor Supratherapeutic INR --INR increased further to 5.4 No signs of bleeding --Could be secondary to concomitant use of antibiotics, CHF decompensation Discussed with Dr. Salazar, recommendation at this point is to administer vitamin K 2 mg IV 1 dose -- INR lowered to 1.5 Resume Coumadin, heparin subcutaneous every 12 hours for DVT prophylaxis History of DVT (deep vein thrombosis): -Left Upper Extremity DVT in the past although recent admission shows general resolution of blood clots -on Coumadin, INR 5.4 -Hold Coumadin, vitamin K IV given 08/02/2019 --INR down to 1.5 Resume Coumadin, heparin subcutaneous every 12 hours for DVT prophylaxis Elevated troponin likely due to demand ischemia from volume overload and hypoxia -mild trop elevation 0.276 -no reported chest pain -EKG unchanged -troponin 0.3 to 0.3 to 0.2 Diabetes mellitus type 2, insulin dependent: -hgb a1c 6.6 02/2019 -glucose 62 on labs on admission -Pharmacy glycemic control Peripheral neuropathy: -Hold gabapentin- causes drowsiness Hyperlipidemia: -continue statin GERD (gastroesophageal reflux disease): -continue PPI Hypothyroidism: -continue levothyroxine DVT prophylaxis: INR 1.5 resume coumadin -- Heparin SC q12h Disposition pending Admission and Anticipated Discharge Date Admission Date: July 31, 2019 Subjective Follow-up for volume overload, ESRD, pneumonia, flu Seen resting in bed, awake and alert, comfortable, watching TV Answers simple questions appropriately but mostly confused States she feels fine overall Denies shortness of breath, chest pain, palpitation No other symptoms Review of Systems Review of Systems: All systems reviewed & are unremarkable except as noted in HPI & below Physical Exam Physical Exam: General- oriented x 1, not in distress, speaks in sentences with no effort or accessory muscle use Eyes- anicteric Neck- no JVD Lungs-decreased breath sounds right mid to base, clear on the left, very faint expiratory wheezing Heart- normal rate, regular rhythm; no murmurs Abdomen- normal bowel sounds, nondistended, soft, nontender Extremities- no pretibial edema, no calf tenderness Neuro- alert, oriented x 1; no new gross focal neurologic deficits Skin- warm & dry Results & Data ([facility]) Vital Signs (Past 12 Hours) Vital Signs Temp Pulse Pulse Pulse Resp BP BP 08/06/19 19:48 36.7 C 93 H 16 116/70 08/06/19 19:04 94 H 18 08/06/19 16:02 36.7 C 90 18 115/63 08/06/19 13:32 89 20 08/06/19 12:35 36.5 C 98 H 119/62 08/06/19 12:00 84 148/67 H 08/06/19 11:40 96 H 126/63 08/06/19 11:20 88 126/67 08/06/19 11:00 107 H 116/69 08/06/19 10:40 98 H 119/62 08/06/19 10:20 97 H 129/60 08/06/19 10:00 95 H 130/61 08/06/19 09:40 96 H 128/66 08/06/19 09:22 92 H 130/66 08/06/19 09:00 90 139/63 Pulse Ox 08/06/19 19:48 98 08/06/19 19:04 96 08/06/19 16:02 94 08/06/19 13:32 96 08/06/19 12:35 08/06/19 12:00 08/06/19 11:40 08/06/19 11:20 08/06/19 11:00 08/06/19 10:40 08/06/19 10:20 08/06/19 10:00 08/06/19 09:40 08/06/19 09:22 08/06/19 09:00
[2019-08-06] MEDS: HEPARIN SOD 5,000 UNIT/0.5 ML VIAL SQ SCH (21:40)
[2019-08-07] MEDS: LEVALBUTEROL HCL 1.25 MG/3 ML NEB NEB SCH ×4 (00:41→18:58)
[2019-08-07] MEDS: guaiFENesin SUGAR FREE 200 MG/10 ML UDC PO PRN (03:52)
[2019-08-07] MEDS: ACETAMINOPHEN 325 MG TAB PO PRN (06:18)
[2019-08-07] MEDS: ACETYLCYSTEINE 10% INHAL SOLN 4 ML **DISPENSED BY RESP. INH SCH ×2 (07:30→18:58)
[2019-08-07 07:48] LABS: INR 2.1 (0.9-1.1)
[2019-08-07 08:11] LABS: BUN Creatinine Ratio 7.8 (10-20); Calcium 9.1 mg/dl (8.5-10.1); Creatinine Clr Calc Pharmacy 10.5 ml/min; Est GFR (African American) 10.7; Est GFR (Non-African American) 9.2; Potassium 3.6 mmol/L (3.5-5.1)
[2019-08-07 08:18] LABS: Hematocrit (blood only) 32.5 % (37-47); Immature Granulocytes # (auto) 0.02 K/uL (0.00-0.02); Immature Granulocytes % (auto) 0.2 %; Lymphocytes # (auto) 0.66 K/uL (1.2-3.4); Lymphocytes % (auto) 7.7 %; Mean Corpuscular Hemoglobin 30.9 pg (25-34); Mean Corpuscular Hgb Conc 30.8 g/dL (32-36); Mean Corpuscular Volume 100.3 fL (80-100); Mean Platelet Volume 10.8 fL (7.4-10.4); Monocytes # (auto) 1.15 K/uL (0.11-0.59); Monocytes % (auto) 13.5 %; Neutrophils % (auto) 78.6 %; Nucleated RBC # (auto) 0.06 K/uL (0-0); Nucleated RBC % (auto) 0.7 %; Platelet Count 115 K/uL (130-400); RDW Coefficient of Variation 21.4 % (11.5-14.5); RDW Standard Deviation 75.1 fL (36.4-46.3); Red Blood Count 3.24 M/uL (4.2-5.4); White Blood Count 8.53 K/uL (4.8-10.8)
[2019-08-07] MEDS: LACTOBACILLUS ACIDOPHILUS (FLORANEX) TAB PO SCH ×4 (08:29→20:31)
[2019-08-07] MEDS: METOPROLOL SUCC 25MG EXT REL TAB PO SCH (08:29)
[2019-08-07] MEDS: guaiFENesin 600 MG TABCR PO SCH ×2 (08:29→20:30)
[2019-08-07] MEDS: predniSONE 20 MG TAB PO SCH (08:30)
[2019-08-07] MEDS: HEPARIN SOD 5,000 UNIT/0.5 ML VIAL SQ SCH ×2 (08:31→20:54)
[2019-08-07] MEDS: DOXYCYCLINE HYCLATE 100 MG CAP PO SCH ×2 (08:31→20:31)
[2019-08-07] MEDS: INSULIN ASPART 100 UNITS/ML 3 ML PEN SC SCH ×4 (08:33→20:52)
[2019-08-07 08:44] LABS: Anisocytosis Present; Hypochromasia Present; Polychromasia 1+
[2019-08-07] MEDS ORDERED: INSULIN HUMAN NPH SC SCH (09:00)
[2019-08-07 09:19] LABS: Hepatitis B Surface Ab Quant < 3.10 mIU/mL (>or=10mIU/mL Immune); Hepatitis B Surface Antibody Non-Immune
[2019-08-07 09:30] LABS: Hepatitis B Surface Antigen Neg (Neg)
--- NOTE | 2019-08-07 14:20 | Hospitalist Progress Note ---
Date of Service August 07, 2019 Assessment & Plan (1) Acute respiratory failure with hypoxia: 78-year-old female with history of ESRD, CHF systolic and diastolic type, diabetes type 2, DVT on Coumadin, presenting with shortness of breath. (1) Acute respiratory failure with hypoxia, likely multifactorial --weaned off nasal cannula, now saturating well on room air Volume overload , secondary to systolic and diastolic CHF, ESRD on hemodialysis (EF 25-29%, grade II diastolic dysfunction) --Repeat chest x-ray: Still showing pulmonary edema pattern, possible right- sided pleural effusion CT chest: Significant right pleural effusion --Management of HD per nephrology service MWF Possible pneumonia Right pleural effusion -CXR shows questionable infiltrate -procalc 5.77 --Blood cultures negative --Patient remains afebrile no leukocytosis -- CT chest ordered: (+) significant right pleural effusion changed Zosyn to Doxy continue Nebs Prednisone 40mg po daily x 3 days --Discussed with pulmonary service, recommend to perform thoracentesis once INR is less than 1.5 Influenza A infection --Completed Tamiflu day #12/10 Metabolic encephalopathy, likely secondary to pneumonia, influenza infection, hypoglycemia -- head CT negative for intracranial findings; does show signs of acute right maxillary sinusitis -- mental status improved after stopping Gabapentin but still mostly confused --Repeat CT head 08/07/2019: No acute process Ammonia level: Pending Monitor closely --Management of infections per above --Management of diabetes type 2 noted below Pancytopenia--Likely secondary to underlying infection --WBC, platelets improving No signs of bleeding --Peripheral smear: Nonspecific findings, no signs of dysplasia --Resumed Coumadin, heparin subcutaneous every 12 hours for DVT prophylaxis --Hold Coumadin for now for planned thoracentesis On heparin subcutaneous every 12 hours for DVT prophylaxis --Continue to monitor Supratherapeutic INR --INR increased further to 5.4 No signs of bleeding --Could be secondary to concomitant use of antibiotics, CHF decompensation Discussed with Dr. Salazar, recommendation at this point is to administer vitamin K 2 mg IV 1 dose -- INR lowered to 1.5, Coumadin resumed, INR now 2.1 Hold Coumadin for now for planned thoracentesis On heparin subcutaneous every 12 hours for DVT prophylaxis History of DVT (deep vein thrombosis): -Left Upper Extremity DVT in the past although recent admission shows general resolution of blood clots -on Coumadin, INR 5.4 -Hold Coumadin, vitamin K IV given 08/02/2019 --INR lowered to 1.5, Coumadin resumed, INR now 2.1 Hold Coumadin for now for planned thoracentesis On heparin subcutaneous every 12 hours for DVT prophylaxis Elevated troponin likely due to demand ischemia from volume overload and hypoxia -mild trop elevation 0.276 -no reported chest pain -EKG unchanged -troponin 0.3 to 0.3 to 0.2 Diabetes mellitus type 2, insulin dependent: -hgb a1c 6.6 02/2019 -glucose 62 on labs on admission -Pharmacy glycemic control Peripheral neuropathy: -Hold gabapentin- causes drowsiness Hyperlipidemia: -continue statin GERD (gastroesophageal reflux disease): -continue PPI Hypothyroidism: -continue levothyroxine DVT prophylaxis: INR 2.1 HOLD coumadin -- Heparin SC q12h Disposition pending Patient is from [facility] prior to admission Admission and Anticipated Discharge Date Admission Date: July 31, 2019 Subjective Follow-up for hypoxia, volume overload, pneumonia, flu Seen resting in bed, sleeping but easily awakened Alert, oriented to place and person, but mostly confused Calm, cooperative States she feels fine overall Denies shortness of breath, cough, sputum, no chest pain No other symptoms Review of Systems Review of Systems: All systems reviewed & are unremarkable except as noted in HPI & below Physical Exam Physical Exam: General- oriented x 1-2, not in distress, speaks in sentences with no effort or accessory muscle use Eyes- anicteric Neck- no JVD Lungs-decreased breath sounds on the right, no crackles or wheezing Heart- normal rate, regular rhythm; no murmurs Abdomen- normal bowel sounds, nondistended, soft, nontender Extremities- no pretibial edema, no calf tenderness Neuro- alert, oriented x 1-2; no gross focal neurologic deficits Skin- warm & dry Results & Data ([facility]) Vital Signs (Past 12 Hours) Vital Signs Temp Pulse Pulse Pulse Resp BP Pulse Ox 08/07/19 14:12 88 16 97 08/07/19 11:26 36.3 C L 88 20 119/71 96 08/07/19 08:00 99 H 08/07/19 07:30 91 H 20 94 08/07/19 07:22 36.6 C 87 8 L 120/69 95 08/07/19 03:18 36.3 C L 96 H 20 135/72 94 Laboratory Results Laboratory Results - last 24 hr 08/06/19 08/07/19 08/07/19 20:24 07:03 07:03 WBC Cancelled RBC Cancelled Hgb Cancelled Hct Cancelled MCV Cancelled MCH Cancelled MCHC Cancelled RDW Std Deviation Cancelled RDW Coeff of Archana Cancelled Plt Count Cancelled MPV Cancelled Immature Gran % (Auto) Cancelled Neut % (Auto) Cancelled Lymph % (Auto) Cancelled [place] % (Auto) Cancelled Eos % (Auto) Cancelled Baso % (Auto) Cancelled Immature Gran # (Auto) Cancelled Neut # (Auto) Cancelled Lymph # (Auto) Cancelled [place] # (Auto) Cancelled Eos # (Auto) Cancelled Baso # (Auto) Cancelled Absolute Nucleated RBC Cancelled Nucleated RBC % (auto) Cancelled Neutrophils % (Manual) Cancelled Band Neutrophils % Cancelled Lymphocytes % (Manual) Cancelled Prolymphocyte % Cancelled Reactive Lymphs % (Man) Cancelled Monocytes % (Manual) Cancelled Eosinophils % (Manual) Cancelled Basophils % (Manual) Cancelled Metamyelocytes % (Man) Cancelled Myelocytes % (Man) Cancelled Promyelocytes % (Man) Cancelled Blast Cells % (Manual) Cancelled Plasma Cell % (Manual) Cancelled Other Cells % Cancelled Nucleated RBC % Cancelled Neutrophils # (Manual) Cancelled Band Neutrophils # Cancelled Total Absolute Neuts Cancelled Lymphocytes # (Manual) Cancelled Prolymphocyte # Cancelled Reactive Lymphs # Cancelled Total Abs Lymphocytes Cancelled Monocytes # (Manual) Cancelled Eosinophils # (Manual) Cancelled Basophils # (Manual) Cancelled Metamyelocytes # (Man) Cancelled Myelocytes # (Manual) Cancelled Promyelocytes # (Man) Cancelled Blast Cells # (Man) Cancelled Plasma Cell # (Manual) Cancelled Other Cells # Cancelled Nucleated RBCs # (Man) Cancelled Hypersegmented Neuts Cancelled Hyposegmented Neuts Cancelled Hypogranular Neuts Cancelled Large Granular Lymphs Cancelled # Lrg Granular Lymphs Cancelled Hairy Cells Cancelled Smudge Cells Cancelled Toxic Granulation Cancelled Toxic Vacuolation Cancelled Dohle Bodies Cancelled [place] Rods Cancelled Platelet Estimate Cancelled Hypogranular Platelets Cancelled Clumped Platelets Cancelled Giant Platelets Cancelled Platelet Satelliting Cancelled RBC Morphology Cancelled Polychromasia Cancelled Hypochromasia Cancelled Poikilocytosis Cancelled Basophilic Stippling Cancelled Anisocytosis Cancelled Microcytosis Cancelled Macrocytosis Cancelled Spherocytes Cancelled Pappenheimer Bodies Cancelled Sickle Cells Cancelled Target Cells Cancelled Tear Drop Cells Cancelled Ovalocytes Cancelled Stomatocytes Cancelled [place] Bodies Cancelled Echinocytes Cancelled Acanthocytes (Spur) Cancelled Rouleaux Cancelled RBC Agglutinates Cancelled Schistocytes Cancelled RBC Morph Comment Cancelled Sezary Cell Cancelled PT 20.0 H INR 2.1 H Sodium Potassium Chloride Carbon Dioxide Anion Gap BUN Creatinine Est Cr Clr Drug Dosing Est GFR ( Amer) Est GFR (Non-Af Amer) BUN/Creatinine Ratio Glucose POC Glucose 136 H Calcium Hep Bs Antigen Hep Bs Antibody Hep Bs Antibody, Quant 08/07/19 08/07/19 08/07/19 07:03 07:03 07:36 WBC RBC Hgb Hct MCV MCH MCHC RDW Std Deviation RDW Coeff of Archana Plt Count MPV Immature Gran % (Auto) Neut % (Auto) Lymph % (Auto) [place] % (Auto) Eos % (Auto) Baso % (Auto) Immature Gran # (Auto) Neut # (Auto) Lymph # (Auto) [place] # (Auto) Eos # (Auto) Baso # (Auto) Absolute Nucleated RBC Nucleated RBC % (auto) Neutrophils % (Manual) Band Neutrophils % Lymphocytes % (Manual) Prolymphocyte % Reactive Lymphs % (Man) Monocytes % (Manual) Eosinophils % (Manual) Basophils % (Manual) Metamyelocytes % (Man) Myelocytes % (Man) Promyelocytes % (Man) Blast Cells % (Manual) Plasma Cell % (Manual) Other Cells % Nucleated RBC % Neutrophils # (Manual) Band Neutrophils # Total Absolute Neuts Lymphocytes # (Manual) Prolymphocyte # Reactive Lymphs # Total Abs Lymphocytes Monocytes # (Manual) Eosinophils # (Manual) Basophils # (Manual) Metamyelocytes # (Man) Myelocytes # (Manual) Promyelocytes # (Man) Blast Cells # (Man) Plasma Cell # (Manual) Other Cells # Nucleated RBCs # (Man) Hypersegmented Neuts Hyposegmented Neuts Hypogranular Neuts Large Granular Lymphs # Lrg Granular Lymphs Hairy Cells Smudge Cells Toxic Granulation Toxic Vacuolation Dohle Bodies [place] Rods Platelet Estimate Hypogranular Platelets Clumped Platelets Giant Platelets Platelet Satelliting RBC Morphology Polychromasia Hypochromasia Poikilocytosis Basophilic Stippling Anisocytosis Microcytosis Macrocytosis Spherocytes Pappenheimer Bodies Sickle Cells Target Cells Tear Drop Cells Ovalocytes Stomatocytes [place] Bodies Echinocytes Acanthocytes (Spur) Rouleaux RBC Agglutinates Schistocytes RBC Morph Comment Sezary Cell PT INR Sodium 131 L Potassium 3.6 Chloride 94 L Carbon Dioxide 24 Anion Gap 13.0 H BUN 33 H Creatinine 4.26 H D Est Cr Clr Drug Dosing 10.5 Est GFR ( Amer) 10.7 Est GFR (Non-Af Amer) 9.2 BUN/Creatinine Ratio 7.8 L Glucose 96 POC Glucose 96 Calcium 9.1 Hep Bs Antigen Neg Hep Bs Antibody Non-Immune Hep Bs Antibody, Quant < 3.10 L 08/07/19 08/07/19 08/07/19 08:05 11:55 16:25 WBC 8.53 RBC 3.24 L Hgb 10.0 L Hct 32.5 L MCV 100.3 H MCH 30.9 MCHC 30.8 L RDW Std Deviation 75.1 H RDW Coeff of Archana 21.4 H Plt Count 115 L MPV 10.8 H Immature Gran % (Auto) 0.2 Neut % (Auto) 78.6 Lymph % (Auto) 7.7 [place] % (Auto) 13.5 Eos % (Auto) 0.0 Baso % (Auto) 0.0 Immature Gran # (Auto) 0.02 Neut # (Auto) 6.70 H Lymph # (Auto) 0.66 L [place] # (Auto) 1.15 H Eos # (Auto) 0.00 Baso # (Auto) 0.00 Absolute Nucleated RBC 0.06 H Nucleated RBC % (auto) 0.7 Neutrophils % (Manual) Band Neutrophils % Lymphocytes % (Manual) Prolymphocyte % Reactive Lymphs % (Man) Monocytes % (Manual) Eosinophils % (Manual) Basophils % (Manual) Metamyelocytes % (Man) Myelocytes % (Man) Promyelocytes % (Man) Blast Cells % (Manual) Plasma Cell % (Manual) Other Cells % Nucleated RBC % Neutrophils # (Manual) Band Neutrophils # Total Absolute Neuts Lymphocytes # (Manual) Prolymphocyte # Reactive Lymphs # Total Abs Lymphocytes Monocytes # (Manual) Eosinophils # (Manual) Basophils # (Manual) Metamyelocytes # (Man) Myelocytes # (Manual) Promyelocytes # (Man) Blast Cells # (Man) Plasma Cell # (Manual) Other Cells # Nucleated RBCs # (Man) Hypersegmented Neuts Hyposegmented Neuts Hypogranular Neuts Large Granular Lymphs # Lrg Granular Lymphs Hairy Cells Smudge Cells Toxic Granulation Toxic Vacuolation Dohle Bodies [place] Rods Platelet Estimate Hypogranular Platelets Clumped Platelets Giant Platelets Platelet Satelliting RBC Morphology Polychromasia 1+ Hypochromasia Present Poikilocytosis Basophilic Stippling Anisocytosis Present Microcytosis Macrocytosis Spherocytes Pappenheimer Bodies Sickle Cells Target Cells Tear Drop Cells Ovalocytes Stomatocytes [place] Bodies Echinocytes Acanthocytes (Spur) Rouleaux RBC Agglutinates Schistocytes RBC Morph Comment Sezary Cell PT INR Sodium Potassium Chloride Carbon Dioxide Anion Gap BUN Creatinine Est Cr Clr Drug Dosing Est GFR ( Amer) Est GFR (Non-Af Amer) BUN/Creatinine Ratio Glucose POC Glucose 108 H 104 H Calcium Hep Bs Antigen Hep Bs Antibody Hep Bs Antibody, Quant 08/07/19 16:45 WBC RBC Hgb Hct MCV MCH MCHC RDW Std Deviation RDW Coeff of Archana Plt Count MPV Immature Gran % (Auto) Neut % (Auto) Lymph % (Auto) [place] % (Auto) Eos % (Auto) Baso % (Auto) Immature Gran # (Auto) Neut # (Auto) Lymph # (Auto) [place] # (Auto) Eos # (Auto) Baso # (Auto) Absolute Nucleated RBC Nucleated RBC % (auto) Neutrophils % (Manual) Band Neutrophils % Lymphocytes % (Manual) Prolymphocyte % Reactive Lymphs % (Man) Monocytes % (Manual) Eosinophils % (Manual) Basophils % (Manual) Metamyelocytes % (Man) Myelocytes % (Man) Promyelocytes % (Man) Blast Cells % (Manual) Plasma Cell % (Manual) Other Cells % Nucleated RBC % Neutrophils # (Manual) Band Neutrophils # Total Absolute Neuts Lymphocytes # (Manual) Prolymphocyte # Reactive Lymphs # Total Abs Lymphocytes Monocytes # (Manual) Eosinophils # (Manual) Basophils # (Manual) Metamyelocytes # (Man) Myelocytes # (Manual) Promyelocytes # (Man) Blast Cells # (Man) Plasma Cell # (Manual) Other Cells # Nucleated RBCs # (Man) Hypersegmented Neuts Hyposegmented Neuts Hypogranular Neuts Large Granular Lymphs # Lrg Granular Lymphs Hairy Cells Smudge Cells Toxic Granulation Toxic Vacuolation Dohle Bodies [place] Rods Platelet Estimate Hypogranular Platelets Clumped Platelets Giant Platelets Platelet Satelliting RBC Morphology Polychromasia Hypochromasia Poikilocytosis Basophilic Stippling Anisocytosis Microcytosis Macrocytosis Spherocytes Pappenheimer Bodies Sickle Cells Target Cells Tear Drop Cells Ovalocytes Stomatocytes [place] Bodies Echinocytes Acanthocytes (Spur) Rouleaux RBC Agglutinates Schistocytes RBC Morph Comment Sezary Cell PT INR Sodium Potassium Chloride Carbon Dioxide Anion Gap BUN Creatinine Est Cr Clr Drug Dosing Est GFR ( Amer) Est GFR (Non-Af Amer) BUN/Creatinine Ratio Glucose POC Glucose 103 H Calcium Hep Bs Antigen Hep Bs Antibody Hep Bs Antibody, Quant
--- NOTE | 2019-08-07 14:34 | Pharmacy Report ---
Pharmacy Glycemic Short Note 2 - Date of Service August 07, 2019 - Glycemic Short BSG Results (Last 24 hours): 08/06/19 08/06/19 08/07/19 16:25 20:24 07:03 Glucose 96 POC Glucose 124 H 136 H 08/07/19 08/07/19 07:36 11:55 Glucose POC Glucose 96 108 H OUTPATIENT ANTIDIABETIC REGIMEN: * NPH/Reg 70/30 13 units BIDM + regular sliding scale * A1c = 6.6 % 07/31/19 Risk Factors for Insulin Resistance: * Infection: Flu, pneumonia * Diet: dialysis diet * Steroids: Solumedrol 40 mg x 1 dose given , prednisone 40 mg daily ASSESSMENT: 08/07/19 * BSGs controlled yesterday, Range 117-136 units * 20 units of NPH with prednisone, Fasting this AM 96, decrease NPH dose to 15 units * Lunch BSG 108, will continue current Novolog parameters 08/05/19 * BSGs have increased as anticipated from the single dose of steroids * Silva has continued to have BSGs > 200 mg/dL through lunch today (using double the carb coverage for the steroid effects) * Anticipate glycemic effects to dissipate around dinner/HS today so will loosen CR at that time 08/04/19 * BSGs have been well controlled * Using 1-5 units of Novolog per day, no basal insulin * Anticipate BSGs to increase s/p steroid administration; therefore, will tighten CR 08/03/19 * Patient has used 5 units of novolog in past 24 hours, blood sugars ranging 101-147mg/dl. * HD today * No basal needed in past 3 days, discontinue * No further changes at this time 07/31/19 * 78 yo female from [facility] presenting with hypoxia, ESRD w/ dialysis [id number] per hospitalist, an additional dialysis session today. Flu + pcr. Currently on zosyn for questionable infiltrate. MRSA negative * Patient was hypoglycemic on admission, with last insulin administration yesterday evening * 220 at lunch after administration of Dextrose, currently NPO. Will give reduced lantus dose with 1800 check if still elevated, patient undergoing dialysis at this time. Will use lantus over NPH to avoid peak while in NPO status PLAN FOR INPATIENT GLYCEMIC CONTROL: * Bolus insulin - continue * NovoLog per scale ACHS or Q6hrs while NPO * Goal Range: Low 120 mg/dL - High 150 mg/dL - higher goal range to avoid hypoglycemia in HD pt * Correction Factor: 25 mg/dL/unit * Nutritional / Prandial insulin per carb ratio of 1 unit per 15 gm CHO starting with dinner PLAN FOR DISCHARGE: * Patient's A1c = 6.6% 02/28/19 * However, this result is likely somewhat unreliable in ESRD patients d/t interactions between the A1c analyzing technique and high levels of urea in ESRD, reduced RBC life span, iron deficiency anemia, and EPO administration. HbA1c > 7.5% in ESRD patient may overestimate the extent of hyperglycemia in ESRD patients. * Patient did present with hypoglycemia on admission and has not required any basal insulin during her stay here. Appears she is likely going to [facility] on discharge. May consider discharging on sliding scale insulin only if requirement remains low.
--- NOTE | 2019-08-07 15:33 | CT Scan Report ---
CT OF THE HEAD WITHOUT CONTRAST CLINICAL HISTORY: altered mental status, r/o cva COMPARISON STUDY: Head CT July 31, 2019. CT DOSE: 614.27 mGy.cm TECHNIQUE: Helical axial images of the head were obtained without IV contrast. Automated exposure con trol was utilized for the study. A dose lowering technique was utilized adhering to the principles o f ALARA. FINDINGS: This exam is mildly compromised by motion artifact. No acute intracranial hemorrhage, midli ne shift or mass effect is present. White matter hypodensities are unchanged and suggest small vessel disease. There are no findings to suggest acute dural sinus thrombosis or acute territorial infarct. Ventricular system is stable. Basilar cisterns are patent. There are no extra axial chest. There are no findings to suggest acute dural sinus thrombosis or acute territorial infarct. A right maxillary sinus air-fluid level has slightly decreased since prior exam of July 31, 2019. Ethmoid and sphen oid sinus mucosal thickening and secretions have mildly improved. Small amount of fluid within left m astoid air cells is similar to prior exam. IMPRESSION: 1. No acute intracranial findings. 2. Exam mildly compromised by motion artifact. 3. Mild improvement in sinus disease since CT of July 31, 2019. No significant change in a small amount of fluid within left mastoid air cells. ACT 112: Negative or not required by law. Electronically signed by: Cody Tomlinson M.D. 08/07/2019 3:31 PM
--- NOTE | 2019-08-07 15:59 | Pulmonary Consultation ---
Date of Consultation August 07, 2019 Assessment & Plan (1) Pleural effusion on right: Long discussion with son Anthony and with patient. I did advise the patient and her son that this is most likely transudate of and associated with her heart failure and end-stage renal failure. I also indicated that this may be recurrence of breast cancer. I also advised the patient and her son that most likely this pleural effusion would reaccumulate sometime in the future. They would like to proceed with intervention. At this time patient and family would like to hold Coumadin and allow INR to drift down so we can proceed with right thoracentesis Patient with history of breast cancer but no treatment for 4 years No other malignancy history We will follow daily INR. When INR is below 1.7, will proceed with thoracentesis (2) History of DVT (deep vein thrombosis): Left upper extremity DVT diagnosed 03/31/2019 at [facility] Patient has been on Coumadin Patient did have supratherapeutic INR 5.4. Patient was given vitamin K. INR currently 2.1 Would recommend bridging with heparin drip once INR drops for thoracentesis (3) Breast cancer: Son reports no history of treatment for breast cancer for least the past 4 years We will send pleural effusion for cytology as well as other labs Thank you for including us in the care of this patient. We will follow along with you. Please refer to Dr. Obrien's addendum for further recommendations. Supervising Physician Co-Signing Physician Notes I saw and evaluated the patient with Lenin jones, and agree with findings and plan as documented in the note. Patient seen and examined at bedside. Patient is very hard to hear. Has history of end-stage renal disease. Left upper extremity DVT diagnosed in end of March early April has been on warfarin since then. History of breast cancer treated 4 years ago. Heart failure with ejection fraction 15%, end-stage renal disease on hemodialysis. Pulmonary consult was placed because patient has chronic right-sided pleural effusion which has been present since February. Patient is on warfarin with INR of 2.1 right now. At the time of examination patient was saturating 97% on room air with heart rate of 85 at rest. We will plan doing thoracentesis on her once INR is less than 1.7. History of Present Illness Attending Physician: Luis Zheng MD History of Present Illness Attending: Dr. Obrien This is an 78-year-old female with a history of end-stage renal disease, left upper extremity DVT, metabolic encephalopathy,Systolic and diastolic CHF, cardiomyopathy with ejection fraction of 15%, hyperlipidemia, peripheral neuropathy, GERD, osteoarthritis, chronic anemia, left bundle branch block, history of breast cancer last treated 4 years ago, AV fistula, hypothyroidism, diabetes mellitus type 2. We are consulted to evaluate a right pleural effusion. This patient has had this effusion for several months. She was seen in the pulmonary clinic in June by Dr. Larkin. At that time it was thought that we should wait to intervene secondary to left upper extremity DVT requiring Coumadin.The DVT was diagnosed March 31, 2019 by ultrasound at [facility].Since that time, the patient has had 2 admissions and reports chronic cough and shortness of breath.Evaluation by CT chest as well as chest x-ray shows a moderate to large right pleural effusion.Procedures limited by patient having coagulopathy secondary to Coumadin with an INR of 2.1. In discussion with son, he believes the mother had thoracentesis in the past. I have reviewed all of the [email or web address] files and cannot find any history of th oracentesis by procedure note, pathology, labs. Son states that he believes that thoracentesis occurred at [facility]. Patient denies any chest pain or tightness. She has no pleuritic pain. She has no flank pain. She denies any hemoptysis. She denies any difficulty in deep in spiration.She has no fever chills.The patient provides no other acute complaints. Allergies Allergy/AdvReac Type Severity Reaction Status Date / Time fish derived Allergy Severe Anaphylaxis Verified 07/31/19 08:28 alcohol Allergy Intermediate bumps on Verified 07/31/19 08:28 skin with alcohol wipes Aminoglycosides Allergy Intermediate Rash Verified 07/31/19 08:28 polymyxin B Allergy Intermediate Rash Verified 07/31/19 08:28 neomycin Allergy Mild Rash Verified 07/31/19 08:28 iodine Allergy Unknown Unknown Verified 07/31/19 08:28 promethazine Allergy Unknown Unknown Verified 07/31/19 08:28 aminophylline Allergy Unknown Verified 07/31/19 08:28 nystatin Allergy Unknown Verified 07/31/19 08:28 adhesive AdvReac Mild bumps on Verified 07/31/19 08:28 skin with "tape" Home Medications Home Medications Medication Instructions Recorded Confirmed Type acetaminophen [Tylenol] 650 mg PO BID PRN 03/31/19 07/31/19 History gabapentin 100 mg PO MOWEFR 03/31/19 07/31/19 History insulin NPH and regular human 13 unit SUBCUT BIDM 03/31/19 07/31/19 History ipratropium-albuterol 3 ml INHALATION Q4H PRN 03/31/19 07/31/19 History losartan 12.5 mg PO QAM 03/31/19 07/31/19 History metoprolol succinate 25 mg PO QAM 03/31/19 07/31/19 History torsemide 80 mg PO SUTUTHSA 03/31/19 07/31/19 History Renal Caps 1 cap PO QAM 05/01/19 07/31/19 History levothyroxine 75 mcg PO DAILY@0600 05/01/19 07/31/19 History montelukast 10 mg PO HS 05/01/19 07/31/19 History benzonatate 100 mg PO TID PRN 07/11/19 07/31/19 History multivitamin 1 cap PO QAM 07/11/19 07/31/19 History atorvastatin 10 mg PO HS 07/31/19 07/31/19 History gabapentin 100 mg PO HS 07/31/19 07/31/19 History insulin regular human [Humulin R 1 sliding scale dose SUBCUT ACHS 07/31/19 07/31/19 History Regular U-100 Insuln] melatonin 3 mg PO HS 07/31/19 07/31/19 History pantoprazole 40 mg PO HS 07/31/19 07/31/19 History warfarin 2 mg PO HS 07/31/19 07/31/19 History Patient History Medical History (Updated 08/07/19 @ 15:51 by Lenin Jones PA-C) Anemia Breast cancer s/p radiation CAD (coronary artery disease) mild, non-obstructive per 06/2018 cardiac cath Cardiorenal syndrome Chronic back pain Diabetes mellitus type 2, insulin dependent (Chronic) ESRD (end stage renal disease) on dialysis (Chronic) GERD (gastroesophageal reflux disease) controlled History of DVT (deep vein thrombosis) LUE Hyperlipidemia Hypothyroidism LBBB (left bundle branch block) chronic dating back to at least [address] [facility] EKG's Morbid obesity Non-ischemic cardiomyopathy (Chronic) Osteoarthritis Peripheral neuropathy Pleural effusion on right Systolic and diastolic CHF w/reduced LV function, NYHA class 4 (Chronic) Surgical History AVF (arteriovenous fistula) LEFT ARM History of appendectomy History of cardiac cath 06/2018: Mild, non-obstructive CAD/no culprit lesions identified to explain symptoms or abnormal stress test History of cataract surgery Hx of lumpectomy Right breast S/P aneurysm repair 05/2019 AV fistula QUENTIN Deutsch Family History Father Diabetes Other Allergies Heart disease Social History Preferred Language: Stateless Communication Ability: Impaired Communication Ability Comment: unable to comprehend at this time, normal A & O, drowsy, opens eyes to name Visual Impairment: No Limitations Hearing Ability: Hard of Hearing Motor Setter Required: No Beliefs That Will Affect Care: None marital status: Current Living Situation: Assisted Other Information That Helps Us Care for You: No Feels Safe at Home: Yes Safety Concerns: Feels Safe At This Time Smoking Status: Never smoker Do You Dip or Chew Tobacco: No ; Second Hand Exposure: No ; Tobacco Cessation Education Requested by Patient: No Hx Alcohol Use: No Hx Substance Use: No Review of Systems Review of Systems: All systems reviewed & are unremarkable except as noted in HPI & below Physical Exam Physical Exam: GENERAL : No acute distress EYES: No icterus, gaze conjugate NOSE: No evidence of epistaxis MOUTH: No lesions or candidiasis NECK: Supple LUNGS: CTA B/L, no wheezes, rales or rhonchi. Decreased breath sounds at the right base HEART: Regular, rate controlled ABDOMEN: Soft, NT, ND, BS Present EXTREMITIES: No LE edema, pedal pulses intact NEURO: A&OX3. Some aphasia. No facial droop. No any quality of strength with upper and lower extremities. Pupils are equal round and reactive to light. Results & Data ([facility]) Vital Signs (Past 12 Hours) Vital Signs Temp Pulse Pulse Pulse Resp BP Pulse Ox 08/07/19 15:41 36.7 C 86 16 134/77 98 08/07/19 14:53 83 03/03/20 14:12 88 16 97 08/07/19 11:26 36.3 C L 88 20 119/71 96 08/07/19 08:00 99 H 08/07/19 07:30 91 H 20 94 08/07/19 07:22 36.6 C 87 8 L 120/69 95 Laboratory Results 08/07/19 08:05 08/07/19 07:03 INR 2.1 (0.9-1.1) H 08/07/19 07:[address] SCAN OF THE CHEST WITHOUT IV CONTRAST CLINICAL HISTORY: Wheezing. COMPARISON STUDY: Chest x-ray dated 07/26/2019. Chest CT dated 06/28/2019. TECHNIQUE: CT scan of the thorax was performed from the thoracic inlet to the upper abdomen. Images are reviewed in the axial, sagittal, and coronal planes. IV contrast was not administered for this examination as per the referring clinician. A dose lowering technique was utilized adhering to the principles of ALARA. The examination is significantly compromised by motion artifact. CT DOSE: 791.03 mGy.cm FINDINGS: Thyroid: Atrophic and heterogeneous. Thoracic aorta: There is mild atherosclerotic calcification of the thoracic aorta, which is normal in caliber and demonstrates standard 3-vessel arch anatomy. Heart: The heart is markedly enlarged and without pericardial effusion. There are coronary artery calcifications. The pulmonary trunk is dilated measuring 3.4 cm in diameter. This suggests pulmonary artery hypertension. Lungs and pleural spaces: Evaluation of the lung parenchyma is significantly degraded by motion artifact. There are moderate to large right and trace left pleural effusions with associated atelectasis. Intralobular septal thickening is noted throughout both lungs. Mild patchy groundglass change is present in the upper lobes bilaterally. The trachea and central airways appear clear. Mediastinum: There is no mediastinal lymphadenopathy. Cori: Not well assessed without IV contrast. Axillae: There is no axillary lymphadenopathy. Upper abdomen: Partially visualized upper abdominal viscera is grossly unremarkable. Skeletal structures: The skeletal structures are osteopenic. Degenerative change and mild hyperkyphosis are noted in the thoracic spine. Postoperative change is partially visualized and left proximal humerus. No lytic or blastic bony lesions are seen. IMPRESSION: 1. Significantly motion compromised examination. 2. Marked cardiomegaly. Intralobular septal thickening suggests congestive failure. 3. Moderate to large right and trace left pleural effusions. The right pleural effusion has increased in size from 06/28/2019. 4. Mild patchy groundglass change is seen throughout both upper lobes. This could represent a component of interstitial edema and/or a mild infec tious/inflammatory pneumonitis. Clinical correlation will be required. ACT 112: Negative or not required by law. Electronically signed by: Lenin Cohen M.D. 08/04/2019 1:37 PM PG Care Time/CCT Total # of Minutes Spent Total Time Spent with Patient: Total time spent is greater than 50% in coord ination of care (as documented) at patient's floor/unit and/or counseling patient: 60 minutes including discussion with patient, son, and primary care team [place] [address] Initial Inpt Care Lvl 3 Patient Type New Diagnoses Pleural effusion on right J90 History of DVT (deep vein thrombosis) Z86.718 Breast cancer C50.919
--- NOTE | 2019-08-07 17:21 | Nephrology Progress Note ---
Date of Service August 07, 2019 Assessment & Plan (1) Acute respiratory failure with hypoxia: Patient tested positive for flu Tuesday. Generally does not require oxygen. CT chest done on 08/04/2019 showed large right pleural effusion. Had 2.5 L fluid removed on 07/31; had 2 L removed yesterday w/ improved breathing -on oseltamivir; also on zosyn for possible PNA (2) Volume overload: a chronic issue for her. has had 10 L fluid removed first 3 days of this week; on track today for another 4L -will continue extra dialysis as needed to optimize volume status continue strict 1.2 L fluid limit (3) ESRD (end stage renal disease) on dialysis: Tuesday via AV fistula: She tolerated dialysis well yesterday with net UF of 2 L. -Daily BMP and CBC -next dialysis will be on Tuesday (4) Anemia: Anemia of chronic disease. HGB 10 today. Transferrin saturation July 25 was 12%. She had been undergoing an IV iron load. also epo w/ tx Admission and Anticipated Discharge Date Admission Date: July 31, 2019 Subjective Patient had HD yesterday. No SOB. She is coughing a lot today Review of Systems Review of Systems: All systems reviewed & are unremarkable except as noted in HPI & below Physical Exam Physical Exam: General exam: Appears comfortable, no acute distress HEENT: Pupils are equal and reactive to light Neck: No JVD, neck is supple trachea is midline Respiratory system: Clear breath sounds bilaterally. Gastrointestinal: Abdomen is soft, non distended, non tender, bowel sounds are present CVS: Regular rate and rhythm. No murmurs, rubs or gallops Musculoskeletal: No joint or muscle tenderness Extremities: Non tender, no edema, peripheral pulses are present Neuro: Oriented, no tremors, no focal neurological deficits Skin: No rashes Results & Data ([facility]) Vital Signs (Past 12 Hours) Vital Signs Temp Pulse Pulse Pulse Resp BP Pulse Ox 08/07/19 15:41 36.7 C 86 16 134/77 98 08/07/19 14:53 83 08/07/19 14:12 88 16 97 08/07/19 11:26 36.3 C L 88 20 119/71 96 08/07/19 08:00 99 H 08/07/19 07:30 91 H 20 94 08/07/19 07:22 36.6 C 87 8 L 120/69 95 Diagnostic Findings 08/07/19 07:03 08/07/19 08/07/19 07:03 08:05 WBC Cancelled 8.53 RBC Cancelled 3.24 L MCV Cancelled 100.3 H MCH Cancelled 30.9 MCHC Cancelled 30.8 L RDW Std Deviation Cancelled 75.1 H RDW Coeff of Archana Cancelled 21.4 H Plt Count Cancelled 115 L MPV Cancelled 10.8 H Nucleated RBC % Cancelled (1) Volume overload Hypervolemia type: other Qualified Code(s): E87.79 - Other fluid overload (2) Anemia Anemia type: unspecified type Qualified Code(s): D64.9 - Anemia, unspecified
[2019-08-07] MEDS: PANTOprazole 40 MG TAB PO SCH (20:31)
[2019-08-07] MEDS: ATORVASTATIN 10 MG TAB PO SCH (20:31)
[2019-08-08] MEDS: LEVALBUTEROL HCL 1.25 MG/3 ML NEB NEB SCH ×4 (01:35→19:20)
[2019-08-08] MEDS: ACETYLCYSTEINE 10% INHAL SOLN 4 ML **DISPENSED BY RESP. INH SCH ×2 (06:57→19:19)
[2019-08-08] MEDS: DOXYCYCLINE HYCLATE 100 MG CAP PO SCH ×2 (07:32→21:26)
[2019-08-08] MEDS: METOPROLOL SUCC 25MG EXT REL TAB PO SCH (07:32)
[2019-08-08] MEDS: guaiFENesin 600 MG TABCR PO SCH ×2 (07:32→21:24)
[2019-08-08] MEDS: LACTOBACILLUS ACIDOPHILUS (FLORANEX) TAB PO SCH ×4 (07:32→21:26)
[2019-08-08] MEDS: predniSONE 20 MG TAB PO SCH (07:32)
[2019-08-08] MEDS ORDERED: ACETAMINOPHEN 325 MG TAB PO PRN (07:46)
[2019-08-08] MEDS ORDERED: SODIUM CHLORIDE 0.9% 1000ML 1,000 ML IV PRN (07:52)
[2019-08-08] MEDS ORDERED: HEPARIN SOD (PORCINE) 1000 UNIT/ML 10 ML VIAL IV ONE (07:52)
[2019-08-08 08:03] LABS: Hematocrit (blood only) 33.1 % (37-47); Hemoglobin 10.6 g/dL (12.0-16.0); Immature Granulocytes # (auto) 0.01 K/uL (0.00-0.02); Immature Granulocytes % (auto) 0.2 %; Lymphocytes # (auto) 0.88 K/uL (1.2-3.4); Lymphocytes % (auto) 14.3 %; Mean Corpuscular Hemoglobin 31.9 pg (25-34); Mean Corpuscular Volume 99.7 fL (80-100); Mean Platelet Volume 11.4 fL (7.4-10.4); Monocytes # (auto) 0.69 K/uL (0.11-0.59); Monocytes % (auto) 11.2 %; Neutrophils # (auto) 4.56 K/uL (1.4-6.5); Neutrophils % (auto) 74.3 %; Nucleated RBC # (auto) 0.04 K/uL (0-0); Nucleated RBC % (auto) 0.6 %; Platelet Count 141 K/uL (130-400); RDW Coefficient of Variation 21.5 % (11.5-14.5); RDW Standard Deviation 76.9 fL (36.4-46.3); Red Blood Count 3.32 M/uL (4.2-5.4); White Blood Count 6.14 K/uL (4.8-10.8)
[2019-08-08 08:21] LABS: INR 2.1 (0.9-1.1)
[2019-08-08] MEDS: HEPARIN SOD 5,000 UNIT/0.5 ML VIAL SQ SCH ×2 (08:22→21:25)
[2019-08-08] MEDS: INSULIN ASPART 100 UNITS/ML 3 ML PEN SC SCH ×4 (08:23→21:24)
[2019-08-08 08:25] LABS: Anisocytosis Present; Echinocytes 1+; Polychromasia 1+
[2019-08-08 08:47] LABS: BUN Creatinine Ratio 9.1 (10-20); Calcium 9.2 mg/dl (8.5-10.1); Creatinine Clr Calc Pharmacy 8.9 ml/min; Est GFR (African American) 8.7; Est GFR (Non-African American) 7.5; Potassium 3.8 mmol/L (3.5-5.1)
[2019-08-08] MEDS ORDERED: INSULIN HUMAN NPH SC SCH (09:00)
--- NOTE | 2019-08-08 09:38 | Pulmonology Progress Note ---
Date of Service August 08, 2019 Assessment & Plan (1) Pleural effusion on right: Hold Coumadin INR 2.1 today Oxygenating well on room air. No chest pain or tightness. No back pain. No flank pain. No pleuritic pain. We will follow daily INR. When INR is below 1.7, will proceed with thoracentesis (2) Expressive aphasia: Persistent expressive aphasia. New facial droop today on the left No headache CT scan of the head yesterday negative for acute findings but with motion artifact Discussed case with Dr. Benson from the hospitalist service Also discussed with speech-language pathology. They will see the patient later today. (3) History of DVT (deep vein thrombosis): Left upper extremity DVT diagnosed 03/31/2019 at [facility] Patient has been on Coumadin Patient did have supratherapeutic INR 5.4. Patient was given vitamin K. INR 2.1 today Consider bridging with heparin drip once INR drops for thoracentesis Will need to hold Coumadin 6 hours prior to thoracentesis (4) Breast cancer: Son reports no history of treatment for breast cancer for least the past 4 years We will send pleural effusion for cytology as well as other labs Thank you for including us in the care of this patient. We will follow along with you. Please refer to Dr. Obrien's addendum for further recommendations. Supervising Physician Co-Signing Physician Notes I saw and evaluated the patient with Lenin licea, and agree with findings and plan as documented in the note. Patient seen and examined at bedside. Patient is very hard to hear. Not any significant distress. No shortness of breath, no chest pain, no headache, no nausea, no vomiting. Good appetite. INR today 2.1 Patient has history of end-stage renal disease. Left upper extremity DVT diagnosed in end of March early April has been on warfarin since then. History of breast cancer treated 4 years ago. Heart failure with ejection fraction 15%, end-stage renal disease on hemodialysis. Pulmonary consult was placed because patient has chronic right-sided pleural effusion which has been p resent since February 2019. We will plan doing thoracentesis on her once INR is less than 1.7. Subjective Attending: Dr. Obrien Patient seen and examined in the dialysis lab. She denies any shortness of breath but continues with chronic non-productive cough. She also continues with expressive aphasia and has a left sided facial droop today. She states that she is very frustrated with her difficulty with word finding. CT Head was negative 08/07/2019 but had motion artifact. I did discuss with Dr. Benson and patient is aware. Patient denies any fever or chills. No chest pain or pleuritic type pain. No other acute complaints. Review of Systems Review of Systems: All systems reviewed & are unremarkable except as noted in HPI & below Physical Exam Physical Exam: GENERAL : No acute distress EYES: No icterus, gaze conjugate NOSE: No evidence of epistaxis MOUTH: No lesions or candidiasis. Left-sided facial droop. NECK: Supple LUNGS: Decreased breath sounds at the right base. Some bilateral crackles. No bronchospasm appreciated. HEART: Regular, rate controlled ABDOMEN: Soft, NT, ND, BS Present EXTREMITIES: No LE edema, pedal pulses intact NEURO: A&OX3. Continues with expressive aphasia. Some left-sided facial droop. Pupils equal round and reactive to light. Able to follow simple commands. Strength is equal and appropriate on the upper extremities. Results & Data ([facility]) Vital Signs (Past 12 Hours) Vital Signs Temp Pulse Pulse Pulse Pulse Resp BP 08/08/19 08:00 36.4 C L 86 18 156/84 H 08/08/19 06:58 82 16 08/08/19 04:00 36.7 C 81 16 124/67 08/08/19 01:36 86 20 08/07/19 23:33 89 08/07/19 21:58 36.6 C 87 20 120/73 Pulse Ox 08/08/19 08:00 99 08/08/19 06:58 96 08/08/19 04:00 95 08/08/19 01:36 96 08/07/19 23:33 08/07/19 21:58 94 Laboratory Results 08/08/19 07:30 08/08/19 07:30 INR 2.1 (0.9-1.1) H 08/08/19 07:[address] OF THE HEAD WITHOUT CONTRAST CLINICAL HISTORY: altered mental status, r/o cva COMPARISON STUDY: Head CT July 31, 2019. CT DOSE: 614.27 mGy.cm TECHNIQUE: Helical axial images of the head were obtained without IV contrast. Automated exposure control was utilized for the study. A dose lowering technique was utilized adhering to the principles of ALARA. FINDINGS: This exam is mildly compromised by motion artifact. No acute intracranial hemorrhage, midline shift or mass effect is present. White matter hypodensities are unchanged and suggest small vessel disease. There are no findings to suggest acute dural sinus thrombosis or acute territorial infarct. Ventricular system is stable. Basilar cisterns are patent. There are no extra axial chest. There are no findings to suggest acute dural sinus thrombosis or acute territorial infarct. A right maxillary sinus air-fluid level has slightly decreased since prior exam of July 31, 2019. Ethmoid and sphenoid sinus mucosal thickening and secretions have mildly improved. Small amount of fluid within left mastoid air cells is similar to prior exam. IMPRESSION: 1. No acute intracranial findings. 2. Exam mildly compromised by motion artifact. 3. Mild improvement in sinus disease since CT of July 31, 2019. No significant change in a small amount of fluid within left mastoid air cells. ACT 112: Negative or not required by law. Electronically signed by: Cody Tomlinson M.D. 08/07/2019 3:31 PM PG Care Time/CCT Total # of Minutes Spent Total Time Spent with Patient: Total time spent is greater than 50% in coordination of care (as documented) at patient's floor/unit and/or counseling patient: Coding Level of Care Code 90941 Subseq Hosp Care Lvl 2 Diagnoses Pleural effusion on right J90 Expressive aphasia R47.01 History of DVT (deep vein thrombosis) Z86.718 Breast cancer C50.919
[2019-08-08] MEDS: CARBOHYDRATES FOR HYPOGLYCEMIA PO PRN ×3 (13:38→20:40)
--- NOTE | 2019-08-08 14:22 | Neurology Consultation ---
Date of Consultation August 08, 2019 Assessment & Plan (1) Expressive aphasia: 1. MRI brain r/o stroke 2. carotid doppler evaluation of vascular issues 3. PT/OT for discharge needs 4. dialysis M, W, F - continue as scheduled 5. coumadin restart after pleurocentesis - history of DVT 6. further recommendations after MRI and carotid doppler. Present on Admission?: Yes (2) Metabolic encephalopathy: Present on Admission?: Yes (3) Acute respiratory failure with hypoxia: Present on Admission?: Yes (4) ESRD (end stage renal disease) on dialysis: Present on Admission?: Yes Supervising Physician Co-Signing Physician Notes I have seen and discussed above patient with Dr Gregg Starr, neurology I have seen and briefly examined this woman in the presence of her son discussed the history from him and reviewed the history recorded on the chart and furthermore discussed the case with Lakshmi Buckley PA-C and agree with the notations above Overall this is a woman with end-stage renal disease on dialysis who may or may not have a primary pulmonary carcinoma with a pleural effusion and who possibly contracted influenza while at [facility] and was transferred here a few days ago for her overall assessment of her low-grade confusion There is some question about whether she has an aphasia and on exam there is some hesitancy and word finding deficits but no other clear abnormal findings and imaging shows only some leukoencephalopathy. We are going to check an mri and a duplex of the carotids to clear the air diagnostically as the history and exam could reflect a nonspedific encephalopathy rather than a focal deficit and if an infarct is seen we may have to add aspirin the the coumadin she is on for dvt She needs a thoracentesis and will need to have coumadin held but afte that procedure the anticoagulation will need restarted and any asa with have to be started then as well if there is evidence for a completed cva Gregg Starr MD History of Present Illness Reason for Consultation: normal CT head,dialysis patient,rule out stroke? Requesting Physician: Magdiel Benson MD Attending Physician: Magdiel Benson MD History of Present Illness Silva is a 78 year old female who was brought to [facility] ED from [facility] on 07/31/2019 for evaluation of hypoxia. previously she was admitted on 07/11 - for hypoxia, volume overload, and AV fistula malfunction. She was transferred to [facility] on 07/17 for management of the AV fistula malformation. She underwent fistulogram and balloon angioplasty and was discharged to [facility] on 07/19. Report from [facility] she was having hypoxia for the p ast few days prior to presentation. They placed her on 2 L of oxygen via nasal cannula with improvement in oxygen saturations. She receives dialysis on Tuesday, Tuesday, Tuesday. She has had poor p.o. intake with no reports of nausea, vomiting, diarrhea. She makes very minimal urine. She was treated with IV Zoysn at admission. Today she is sitting up and eating her lunch. Her son is bedside and states she is doing much better today. She is still having some expressive aphasia. denies CP, SOB, abdominal pain, one sided weakness, numbness tingling, N, V, swallowing issues. Allergies Allergy/AdvReac Type Severity Reaction Status Date / Time fish derived Allergy Severe Anaphylaxis Verified 07/31/19 08:28 alcohol Allergy Intermediate bumps on Verified 07/31/19 08:28 skin with alcohol wipes Aminoglycosides Allergy Intermediate Rash Verified 07/31/19 08:28 polymyxin B Allergy Intermediate Rash Verified 07/31/19 08:28 neomycin Allergy Mild Rash Verified 07/31/19 08:28 iodine Allergy Unknown Unknown Verified 07/31/19 08:28 promethazine Allergy Unknown Unknown Verified 07/31/19 08:28 aminophylline Allergy Unknown Verified 07/31/19 08:28 nystatin Allergy Unknown Verified 07/31/19 08:28 adhesive AdvReac Mild bumps on Verified 07/31/19 08:28 skin with "tape" Home Medications Home Medications Medication Instructions Recorded Confirmed Type acetaminophen [Tylenol] 650 mg PO BID PRN 03/31/19 07/31/19 History gabapentin 100 mg PO MOWEFR 03/31/19 07/31/19 History insulin NPH and regular human 13 unit SUBCUT BIDM 03/31/19 07/31/19 History ipratropium-albuterol 3 ml INHALATION Q4H PRN 03/31/19 07/31/19 History losartan 12.5 mg PO QAM 03/31/19 07/31/19 History metoprolol succinate 25 mg PO QAM 03/31/19 07/31/19 History torsemide 80 mg PO SUTUTHSA 03/31/19 07/31/19 History Renal Caps 1 cap PO QAM 11/26/19 02/25/20 History levothyroxine 75 mcg PO DAILY@0600 05/01/19 07/31/19 History montelukast 10 mg PO HS 05/01/19 07/31/19 History benzonatate 100 mg PO TID PRN 07/11/19 07/31/19 History multivitamin 1 cap PO QAM 07/11/19 07/31/19 History atorvastatin 10 mg PO HS 07/31/19 07/31/19 History gabapentin 100 mg PO HS 07/31/19 07/31/19 History insulin regular human [Humulin R 1 sliding scale dose SUBCUT ACHS 07/31/19 07/31/19 History Regular U-100 Insuln] melatonin 3 mg PO HS 07/31/19 07/31/19 History pantoprazole 40 mg PO HS 07/31/19 07/31/19 History warfarin 2 mg PO HS 07/31/19 07/31/19 History Patient History Medical History (Updated 08/08/19 @ 10:00 by Lenin Jones PA-C) Anemia Breast cancer s/p radiation CAD (coronary artery disease) mild, non-obstructive per 06/2018 cardiac cath Cardiorenal syndrome Chronic back pain Diabetes mellitus type 2, insulin dependent (Chronic) ESRD (end stage renal disease) on dialysis (Chronic) GERD (gastroesophageal reflux disease) controlled History of DVT (deep vein thrombosis) LUE Hyperlipidemia Hypothyroidism LBBB (left bundle branch block) chronic dating back to at least 2007 per prior [facility] EKG's Morbid obesity Non-ischemic cardiomyopathy (Chronic) Osteoarthritis Peripheral neuropathy Pleural effusion on right Systolic and diastolic CHF w/reduced LV function, NYHA class 4 (Chronic) Surgical History AVF (arteriovenous fistula) LEFT ARM History of appendectomy History of cardiac cath 06/2018: Mild, non-obstructive CAD/no culprit lesions identified to explain symptoms or abnormal stress test History of cataract surgery Hx of lumpectomy Right breast S/P aneurysm repair 05/2019 AV fistula QUENTIN Deutsch Family History Father Diabetes Other Allergies Heart disease Social History Preferred Language: [place] Communication Ability: Impaired Communication Ability Comment: unable to comprehend at this time, normal A & O, drowsy, opens eyes to name Visual Impairment: No Limitations Hearing Ability: Hard of Hearing Technician Telecommunication Systems Required: No Beliefs That Will Affect Care: None marital status: Current Living Situation: Halfway Other Information That Helps Us Care for You: No Feels Safe at Home: Yes Safety Concerns: Feels Safe At This Time Smoking Status: Never smoker Do You Dip or Chew Tobacco: No ; Second Hand Exposure: No ; Tobacco Cessation Education Requested by Patient: No Hx Alcohol Use: No Hx Substance Use: No Physical Exam Physical Exam: Physical Exam: Constitutional: appearance over nourished Ears, Nose, Mouth and Throat: mucous membranes moist, no injection and skin normal, eyes normal Cardiovascular: normal S-1 and S-2 and regular rate and rhythm Respiratory: clear to auscultation (CTA) and no rales, ronchi or wheeze Musculoskeletal: no peripheral edema and good distal pulses Skin: no stigmata of neurocutaneous disease noted and normal and intact Eyes: extraocular muscles intact (EOMI) and pupils equal, round and reactive to light (PERRL) NEUROLOGIC EXAMINATION: Mental status: Alert and interactive Oriented to son at bedside states button, identifies my thumb as her thumb Oriented to person Speech intermittent aphasia, dysarthria Cranial Nerves flattening of nasolabial fold Reflexes: Deep tendon reflexes were symmetrical and decrease Sensory: decreased sensation to light and cool touch Coordination: finger to nose no bi pass Gait/Stance: Posture normal. Gait normal: with steady with steps, base, turning, heel and toe walking and tandem gait. Motor: mild right sided drift Strength: generalize weakness, hand independent producer biceps triceps 4+/5, hip flex 4+/5 Results & Data Vital Signs (Past 12 Hours) Vital Signs Temp Pulse Pulse Pulse Resp BP BP 08/08/19 13:00 81 105/55 L 08/08/19 12:40 81 95/50 L 08/08/19 12:20 84 103/55 L 08/08/19 12:00 85 106/56 L 08/08/19 11:40 85 93/49 L 08/08/19 11:20 86 104/41 L 08/08/19 11:00 87 103/46 L 08/08/19 10:40 79 113/93 08/08/19 10:20 84 115/54 L 08/08/19 10:00 84 95/52 L 08/08/19 09:40 81 123/55 L 08/08/19 09:21 36.6 C 82 08/08/19 08:00 36.4 C L 86 18 156/84 H 08/08/19 06:58 82 16 08/08/19 04:00 36.7 C 81 16 124/67 Pulse Ox 08/08/19 13:00 08/08/19 12:40 08/08/19 12:20 08/08/19 12:00 08/08/19 11:40 08/08/19 11:20 08/08/19 11:00 08/08/19 10:40 08/08/19 10:20 08/08/19 10:00 08/08/19 09:40 08/08/19 09:21 08/08/19 08:00 99 08/08/19 06:58 96 08/08/19 04:00 95 Laboratory Results Abnormal lab results 08/07/19 08/07/19 08/07/19 Range/Units 16:25 16:45 20:12 RBC (4.2-5.4) M/uL Hgb (12.0-16.0) g/dL Hct (37-47) % RDW Std Deviation (36.4-46.3) fL RDW Coeff of Archana (11.5-14.5) % MPV (7.4-10.4) fL Lymph # (Auto) (1.2-3.4) K/uL Fallon # (Auto) (0.11-0.59) K/uL Absolute Nucleated RBC (0-0) K/uL PT (9.0-12.0) Seconds INR (0.9-1.1) Sodium (136-145) mmol/L Chloride (98-107) mmol/L Anion Gap (3-11) BUN (7-18) mg/dl Creatinine (0.6-1.2) mg/dl BUN/Creatinine Ratio (10-20) POC Glucose 104 H 103 H (70-99) mg/dl Ammonia 32.1 H (11-32) umol/L 08/07/19 08/08/1908/07/20 Range/Units 20:51 07:30 07:30 RBC 3.32 L (4.2-5.4) M/uL Hgb 10.6 L (12.0-16.0) g/dL Hct 33.1 L (37-47) % RDW Std Deviation 76.9 H (36.4-46.3) fL RDW Coeff of Archana 21.5 H (11.5-14.5) % MPV 11.4 H (7.4-10.4) fL Lymph # (Auto) 0.88 L (1.2-3.4) K/uL Fallon # (Auto) 0.69 H (0.11-0.59) K/uL Absolute Nucleated RBC 0.04 H (0-0) K/uL PT (9.0-12.0) Seconds INR (0.9-1.1) Sodium 128 L (136-145) mmol/L Chloride 91 L (98-107) mmol/L Anion Gap 12.0 H (3-11) BUN 46 H (7-18) mg/dl Creatinine 5.06 H* D (0.6-1.2) mg/dl BUN/Creatinine Ratio 9.1 L (10-20) POC Glucose 153 H (70-99) mg/dl Ammonia (11-32) umol/L 08/08/19 08/08/19 08/08/19 Range/Units 07:30 13:00 13:02 RBC (4.2-5.4) M/uL Hgb (12.0-16.0) g/dL Hct (37-47) % RDW Std Deviation (36.4-46.3) fL RDW Coeff of Archana (11.5-14.5) % MPV (7.4-10.4) fL Lymph # (Auto) (1.2-3.4) K/uL Fallon # (Auto) (0.11-0.59) K/uL Absolute Nucleated RBC (0-0) K/uL PT 20.0 H (9.0-12.0) Seconds INR 2.1 H (0.9-1.1) Sodium (136-145) mmol/L Chloride (98-107) mmol/L Anion Gap (3-11) BUN (7-18) mg/dl Creatinine (0.6-1.2) mg/dl BUN/Creatinine Ratio (10-20) POC Glucose 60 L* 59 L* (70-99) mg/dl Ammonia (11-32) umol/L Diagnostic Findings CT head- 08/06- No acute intracranial findings. Exam mildly compromised by motion artifact. Mild improvement in sinus disease since CT of July 31, 2019. No significant change in a small amount of fluid within left mastoid air cells. CT chest-Significantly motion compromised examination. Marked cardiomegaly. Intralobular septal thickening suggests congestive failure. Moderate to large right and trace left pleural effusions. The right pleural effusion has increased in size from 06/28/2019. Mild patchy groundglass change is seen throughout both upper lobes. This could represent a component of interstitial edema and/or a mild infectious/inflammatory pneumonitis.
--- NOTE | 2019-08-08 15:16 | Nephrology Progress Note ---
Date of Service August 08, 2019 Assessment & Plan (1) Acute respiratory failure with hypoxia: Patient tested positive for flu Tuesday. Generally does not require oxygen. CT chest done on 08/04/2019 showed large right pleural effusion. Had 2.5 L fluid removed on 07/31; had 2 L removed yesterday w/ improved breathing -on oseltamivir; also on zosyn for possible PNA (2) Volume overload: a chronic issue for her. has had 10 L fluid removed first 3 days of this week; on track today for another 4L -will continue extra dialysis as needed to optimize volume status continue strict 1.2 L fluid limit (3) ESRD (end stage renal disease) on dialysis: Tuesday via AV fistula: She tolerated dialysis well today with net UF of 2.5 L. -Daily BMP and CBC -next dialysis will be on Tuesday (4) Anemia: Anemia of chronic disease. HGB 10. Transferrin saturation July 25 was 12%. She had been undergoing an IV iron load. also epo w/ tx Admission and Anticipated Discharge Date Admission Date: July 31, 2019 Subjective Patient was seen and examined while on dialysis. She answers simple questions with yes and no. She is hard of hearing. Denies SOB. Review of Systems Review of Systems: All systems reviewed & are unremarkable except as noted in HPI & below Physical Exam Physical Exam: General exam: Appears comfortable, no acute distress HEENT: Pupils are equal and reactive to light Neck: No JVD, neck is supple trachea is midline Respiratory system: Clear breath sounds bilaterally. Gastrointestinal: Abdomen is soft, non distended, non tender, bowel sounds are present CVS: Regular rate and rhythm. No murmurs, rubs or gallops Musculoskeletal: No joint or muscle tenderness Extremities: Non tender, no edema, peripheral pulses are present Neuro: She knows she is hospital but does not know which one Skin: No rashes Results & Data ([facility]) Vital Signs (Past 12 Hours) Vital Signs Temp Pulse Pulse Pulse Resp BP BP 08/08/19 14:27 85 18 08/08/19 13:45 36.6 C 110/60 08/08/19 13:20 80 102/51 L 08/08/19 13:00 81 105/55 L 08/08/19 12:40 81 95/50 L 08/08/19 12:20 84 103/55 L 08/08/19 12:00 85 106/56 L 08/08/19 11:40 85 93/49 L 08/08/19 11:20 86 104/41 L 08/08/19 11:00 87 103/46 L 08/08/19 10:40 79 113/93 08/08/19 10:20 84 115/54 L 08/08/19 10:00 84 95/52 L 08/08/19 09:40 81 123/55 L 08/08/19 09:21 36.6 C 82 08/08/19 08:00 36.4 C L 86 18 156/84 H 08/08/19 06:58 82 16 08/08/19 04:00 36.7 C 81 16 124/67 Pulse Ox 08/08/19 14:27 97 08/08/19 13:45 08/08/19 13:20 08/08/19 13:00 08/08/19 12:40 08/08/19 12:20 08/08/19 12:00 08/08/19 11:40 08/08/19 11:20 08/08/19 11:00 08/08/19 10:40 08/08/19 10:20 08/08/19 10:00 08/08/19 09:40 08/08/19 09:21 08/08/19 08:00 99 08/08/19 06:58 96 08/08/19 04:00 95 Laboratory Results 08/08/19 07:30 08/08/19 07:30 WBC 6.14 RBC 3.32 L MCV 99.7 MCH 31.9 MCHC 32.0 RDW Std Deviation 76.9 H RDW Coeff of Archana 21.5 H Plt Count 141 MPV 11.4 H (1) Volume overload Hypervolemia type: other Qualified Code(s): E87.79 - Other fluid overload (2) Anemia Anemia type: unspecified type Qualified Code(s): D64.9 - Anemia, unspecified
--- NOTE | 2019-08-08 15:44 | Pharmacy Report ---
Pharmacy Glycemic Short Note 2 - Date of Service August 08, 2019 - Glycemic Short BSG Results (Last 24 hours): 08/07/19 08/07/19 08/07/19 16:25 16:45 20:51 Glucose POC Glucose 104 H 103 H 153 H 08/08/19 08/08/19 08/08/19 07:30 07:47 13:00 Glucose 85 POC Glucose 93 60 L* 08/08/19 08/08/19 13:02 13:32 Glucose POC Glucose 59 L* 77 OUTPATIENT ANTIDIABETIC REGIMEN: * NPH/Reg 30 13 units BIDM + regular sliding scale * A1c = 6.6 % 07/31/19 Risk Factors for Insulin Resistance: * Infection: Flu, pneumonia * Diet: dialysis diet * Steroids: Solumedrol 40 mg x 1 dose given , prednisone 40 mg daily-d/c'd today 08/07 ASSESSMENT: 08/08/19: * BSGs well controlled yesterday ranging from (96-153) * Fasting on the lower end again this morning at 93, will decrease NPH again to 10 units with prednisone. Prednisone has since been d/c'd thus will stop NPH. * Patient was hypoglycemic at lunch. However, after discussion with the nurse, the patient did not eat much for breakfast (~10 g CHO) and then went right to dialysis and BSG was not taken until they returned. This likely contributed to this hypoglycemic episode. Will not alter novolog at this time, but will monitor. 08/07/19 * BSGs controlled yesterday, Range 117-136 units * 20 units of NPH with prednisone, Fasting this AM 96, decrease NPH dose to 15 units * Lunch BSG 108, will continue current Novolog parameters 08/05/19 * BSGs have increased as anticipated from the single dose of steroids * Silva has continued to have BSGs > 200 mg/dL through lunch today (using double the carb coverage for the steroid effects) * Anticipate glycemic effects to dissipate around dinner/HS today so will loosen CR at that time 08/04/19 * BSGs have been well controlled * Using 1-5 units of Novolog per day, no basal insulin * Anticipate BSGs to increase s/p steroid administration; therefore, will tighten CR 08/03/19 * Patient has used 5 units of novolog in past 24 hours, blood sugars ranging 101-147mg/dl. * HD today * No basal needed in past 3 days, discontinue * No further changes at this time 07/31/19 * 78 yo female from [facility] presenting with hypoxia, ESRD w/ dialysis MoWeThFr per hospitalist, an additional dialysis session today. Flu + pcr. Currently on zosyn for questionable infiltrate. MRSA negative * Patient was hypoglycemic on admission, with last insulin administration yesterday evening * 220 at lunch after administration of Dextrose, currently NPO. Will give reduced lantus dose with 1800 check if still elevated, patient undergoing dialysis at this time. Will use lantus over NPH to avoid peak while in NPO status PLAN FOR INPATIENT GLYCEMIC CONTROL: * NPH 10 units X 1 with prednisone * Bolus insulin - continue * NovoLog per scale ACHS or Q6hrs while NPO * Goal Range: Low 120 mg/dL - High 150 mg/dL - higher goal range to avoid hypoglycemia in HD pt * Correction Factor: 25 mg/dL/unit * Nutritional / Prandial insulin per carb ratio of 1 unit per 15 gm CHO starting with dinner PLAN FOR DISCHARGE: * Patient's A1c = 6.6% 02/28/19 * However, this result is likely somewhat unreliable in ESRD patients d/t interactions between the A1c analyzing technique and high levels of urea in ESRD, reduced RBC life span, iron deficiency anemia, and EPO administration. HbA1c > 7.5% in ESRD patient may overestimate the extent of hyperglycemia in ESRD patients. * Patient did present with hypoglycemia on admission and has not required any basal insulin during her stay here. Appears she is likely going to [facility] on discharge. May consider discharging on sliding scale insulin only if requirement remains low.
--- NOTE | 2019-08-08 19:11 | Hospitalist Progress Note ---
Date of Service August 08, 2019 Assessment & Plan (1) Acute respiratory failure with hypoxia: 78-year-old female with history of ESRD, CHF systolic and diastolic type, diabetes type 2, DVT on Coumadin, presenting with shortness of breath. Acute respiratory failure with hypoxia, likely multifactorial Volume overload , secondary to systolic and diastolic CHF, ESRD on hemodialysis Possible pneumonia chronic Right pleural effusion (EF 25-29%, grade II diastolic dysfunction) -on hemodialysis -patient completed course of prednisone and Tamiflu -patient currently on doxycycline after initial course of Zosyn -nebulizers as needed 08/08/2019 Patient completed dialysis today. responds to questions appropriately despite known auditory impairments and currently does not have home hearing aide device. Her strength is symmetric of upper extremities. I do not appreciate aphasia on her exam. Neurology consulted because of precautionary workup to rule out stroke. patient's head CT normal on 08/07/2019. currently awaiting Brain MRI and carotid ultrasound. also discussed with pulmonary that when INR less than 2, that heparin drip IV can be started and then pulmonary can do thoracentesis of chronic right sided pleural effusion. Metabolic encephalopathy, likely secondary to pneumonia, influenza infection, hypoglycemia -mental status improved after stopping Gabapentin -08/07/2019 ammonia levels 32.1 which high normal levels -head CT negative for intracranial findings; does show signs of acute right maxillary sinusitis -Brain MRI, carotid consult, and further neurology recommendations as needed -Management of infections per above -Management of diabetes type 2 noted below Diabetes mellitus type 2, insulin dependent, with complications of hypoglycemia -hgb a1c 6.6 02/2019 -Pharmacy glycemic control is asked to prevent hypoglycemia Peripheral neuropathy -Hold gabapentin- causes drowsiness Supratherapeutic INR -indication for anticoagulation: Left Upper Extremity DVT in the past although recent admission shows general resolution of blood clots -supratherapetutic INR resolved after vitamin K on this admission on 08/02/2019 -currently INR is 2.1, on On heparin subcutaneous every 12 hours for DVT prophylaxis Elevated troponin likely due to demand ischemia from volume overload and hypoxia -mild troponin elevation on this admission but no chest pain and no ischemic EKG findings Pancytopenia -Likely secondary to underlying infection Hyperlipidemia: -continue statin GERD (gastroesophageal reflux disease): -continue PPI Hypothyroidism: -continue levothyroxine DVT prophylaxis: INR 2.1 HOLD coumadin - Heparin SC q12h Admission and Anticipated Discharge Date Admission Date: July 31, 2019 Subjective Patient completed dialysis today. responds to questions appropriately despite known auditory impairments and currently does not have home hearing aide device. Her strength is symmetric of upper extremities. I do not appreciate aphasia on her exam. Neurology consulted because of precautionary workup to rule out stroke. patient's head CT normal on 08/07/2019. currently awaiting Brain MRI and carotid ultrasound. also discussed with pulmonary that when INR less than 2, that heparin drip Iv can be started and then pulmonary can do thoracentesis of chronic right sided pleural effusion. Review of Systems Review of Systems: All systems reviewed & are unremarkable except as noted in HPI & below Physical Exam Constitutional: comfortable Eyes: PERRL, conjunctivae normal, anicteric sclerae EOM intact bilaterally Neck: normal visual inspection Respiratory: normal respiratory effort Cardiovascular: Rate/Rhythm: regular rate Gastrointestinal (Abdomen): normal bowel sounds, soft, nontender, no hepatosplenomegaly Musculoskeletal: Head/Neck/Chest: normocephalic and head atraumatic Neurologic: CN's II-XI intact bilaterally Psychiatric: Orientation: alert and cooperative Results & Data ([facility]) Vital Signs (Past 12 Hours) Vital Signs Temp Pulse Pulse Pulse Resp BP BP 08/08/19 15:47 36.7 C 85 19 134/73 08/08/19 14:27 85 18 08/08/19 13:45 36.6 C 110/60 08/08/19 13:20 80 102/51 L 08/08/19 13:00 81 105/55 L 08/08/19 12:40 81 95/50 L 08/08/19 12:20 84 103/55 L 08/08/19 12:00 85 106/56 L 08/08/19 11:40 85 93/49 L 08/08/19 11:20 86 104/41 L 08/08/19 11:00 87 103/46 L 08/08/19 10:40 79 113/93 08/08/19 10:20 84 115/54 L 08/08/19 10:00 84 95/52 L 08/08/19 09:40 81 123/55 L 08/08/19 09:21 36.6 C 82 08/08/19 08:00 36.4 C L 86 18 156/84 H Pulse Ox 08/08/19 15:47 94 08/08/19 14:27 97 03/04/20 13:45 08/08/19 13:20 08/08/19 13:00 08/08/19 12:40 08/08/19 12:20 08/08/19 12:00 08/08/19 11:40 08/08/19 11:20 08/08/19 11:00 08/08/19 10:40 08/08/19 10:20 08/08/19 10:00 08/08/19 09:40 08/08/19 09:21 08/08/19 08:00 99
--- NOTE | 2019-08-08 19:54 | Ultrasound Report ---
BILATERAL CAROTID DOPPLER STUDY HISTORY: Change in mental status. COMPARISON: None. TECHNIQUE: Real-time, grayscale, and color Doppler sonography of the carotid arteries was performed. Imaging reviewed in the transverse and longitudinal planes. All measurements were calculated based on NASCET criteria. FINDINGS: Antegrade flow is seen in the bilateral vertebral arteries. The brachial pressures are hemodynamically similar. Mild calcified plaque within the bilateral carotid bulbs. The peak systolic velocity within the right ICA is 73 cm/s. The right systolic ratio is 1.2. The peak systolic velocity within the left ICA is 102 cm/s. The left systolic ratio is 1.9. IMPRESSION: No hemodynamically significant stenosis seen within the carotid arteries. ACT 112: Negative or not required by law. Electronically signed by: Cristóbal Means M.D. 08/08/2019 7:53 PM
--- NOTE | 2019-08-08 19:58 | Magnetic Resonance Report ---
Brain MRI WITHOUT CONTRAST HISTORY: Change in mental status. rule out stroke TECHNIQUE: Multiplanar multisequence MRI of the brain was performed without the use of contrast. COMPARISON STUDY: Head CT 08/07/2019. FINDINGS: There is no mass, hematoma, midline shift, or acute infarct. The paranasal sinuses are chris r. The mastoid air cells are clear. The ventricles and sulci demonstrate mild age-related involutiona l changes. Scattered foci of T2 hyperintensity seen within the periventricular and subcortical white matter are nonspecific but suggestive of mild microvascular ischemic changes. The major vascular flow voids at the skull base are well-maintained. Mild mucosal thickening and trace fluid levels within t he maxillary sinuses. There are small to moderate mastoid effusions. Partial opacification of the eth moid air cells. Mild mucosal thickening within the sphenoid sinuses. Old punctate lacunar infarct wit hin the left thalamus. IMPRESSION: No acute intracranial abnormality. Scattered foci of T2 hyperintensity seen within the periventricula r and subcortical white matter are nonspecific but favor microvascular ischemic change. Persistent si nus disease as described above. ACT 112: Negative or not required by law. Electronically signed by: Cristóbal Means M.D. 08/08/2019 7:56 PM
[2019-08-08] MEDS: PANTOprazole 40 MG TAB PO SCH (21:25)
[2019-08-08] MEDS: ATORVASTATIN 10 MG TAB PO SCH (21:27)
[2019-08-09] MEDS: LEVALBUTEROL HCL 1.25 MG/3 ML NEB NEB SCH ×2 (00:49→06:55)
[2019-08-09] MEDS: INSULIN ASPART 100 UNITS/ML 3 ML PEN SC SCH ×6 (00:49→20:32)
[2019-08-09] MEDS: ACETYLCYSTEINE 10% INHAL SOLN 4 ML **DISPENSED BY RESP. INH SCH (06:54)
[2019-08-09] MEDS ORDERED: LEVALBUTEROL HCL 1.25 MG/3 ML NEB NEB PRN (07:35)
[2019-08-09] MEDS ORDERED: ALBUT/IPRATROP 3MG/0.5MG NEB 3 ML VIAL INH PRN (07:36)
[2019-08-09] MEDS: CARBOHYDRATES FOR HYPOGLYCEMIA PO PRN ×2 (07:47→08:10)
[2019-08-09 08:12] LABS: Basophils # (auto) 0.01 K/uL (0-0.2); Basophils % (auto) 0.2 %; Eosinophils # (auto) 0.03 K/uL (0-0.5); Eosinophils % (auto) 0.5 %; Hematocrit (blood only) 34.1 % (37-47); Hemoglobin 10.8 g/dL (12.0-16.0); Immature Granulocytes # (auto) 0.01 K/uL (0.00-0.02); Immature Granulocytes % (auto) 0.2 %; Lymphocytes # (auto) 0.83 K/uL (1.2-3.4); Lymphocytes % (auto) 13.1 %; Mean Corpuscular Hemoglobin 31.8 pg (25-34); Mean Corpuscular Hgb Conc 31.7 g/dL (32-36); Mean Corpuscular Volume 100.3 fL (80-100); Mean Platelet Volume 11.7 fL (7.4-10.4); Monocytes # (auto) 0.99 K/uL (0.11-0.59); Monocytes % (auto) 15.7 %; Neutrophils # (auto) 4.45 K/uL (1.4-6.5); Neutrophils % (auto) 70.3 %; Platelet Count 110 K/uL (130-400); RDW Coefficient of Variation 22.1 % (11.5-14.5); RDW Standard Deviation 78.9 fL (36.4-46.3); White Blood Count 6.32 K/uL (4.8-10.8)
[2019-08-09 08:14] LABS: INR 2.1 (0.9-1.1); Prothrombin Time 20.3 Seconds (9.0-12.0)
[2019-08-09] MEDS: LACTOBACILLUS ACIDOPHILUS (FLORANEX) TAB PO SCH ×4 (08:25→20:31)
[2019-08-09] MEDS: METOPROLOL SUCC 25MG EXT REL TAB PO SCH (08:26)
[2019-08-09] MEDS: DOXYCYCLINE HYCLATE 100 MG CAP PO SCH ×2 (08:26→20:32)
[2019-08-09] MEDS: HEPARIN SOD 5,000 UNIT/0.5 ML VIAL SQ SCH (08:27)
[2019-08-09 08:37] LABS: BUN Creatinine Ratio 8.1 (10-20); Calcium 9.1 mg/dl (8.5-10.1); Creatinine Clr Calc Pharmacy 12.4 ml/min; Est GFR (African American) 13.3; Est GFR (Non-African American) 11.5; Potassium 3.4 mmol/L (3.5-5.1)
--- NOTE | 2019-08-09 08:38 | Hospitalist Progress Note ---
Date of Service August 09, 2019 Assessment & Plan (1) Acute respiratory failure with hypoxia: 78-year-old female with history of ESRD, CHF systolic and diastolic type, diabetes type 2, DVT on Coumadin, presenting with shortness of breath. Acute respiratory failure with hypoxia (resolved) likely multifactorial from Volume overload , secondary to systolic and diastolic CHF, ESRD on hemodialysis, Influenza type A Possible pneumonia chronic Right pleural effusion (EF 25-29%, grade II diastolic dysfunction) -on hemodialysis -patient completed course of prednisone and Tamiflu -patient currently on doxycycline after initial course of Zosyn. last day of doxycycline is set for -nebulizers as needed. currently on room air -08/08/2019 Patient completed dialysis today. responds to questions appropriately despite known auditory impairments and currently does not have home hearing aide device. Her strength is symmetric of upper extremities. I do not appreciate aphasia on her exam. Neurology consulted because of precautionary workup to rule out stroke. patient's head CT normal on 08/07/2019. -08/09/2019: recent normal head/neck imaging reviewed. no evidence of stroke. INR remains 2.1. Patient periodically with low blood sugars. Nurse asked to have juice at bedside when possible. patient answers questions appropriately. no acute distress. no acute pain. sometimes is hard of hearing because she does not have her hearing aids. Metabolic encephalopathy, likely secondary to pneumonia, influenza infection, hypoglycemia -mental status improved after stopping Gabapentin -08/07/2019 ammonia levels 32.1 which high normal levels -head CT negative for intracranial findings; does show signs of acute right maxillary sinusitis -Brain MRI 08/08/2019: No acute intracranial abnormality. Scattered foci of T2 hyperintensity seen within the periventricular and subcortical white matter are nonspecific but favor microvascular ischemic change. Persistent sinus disease -carotid ultrasound 08/09/2019: No hemodynamically significant stenosis seen within the carotid arteries. Diabetes mellitus type 2, insulin dependent, with complications of hypoglycemia -hgb a1c 6.6 02/2019 -Pharmacy glycemic control is asked to prevent hypoglycemia Peripheral neuropathy -Hold gabapentin as it causes drowsiness Supratherapeutic INR -indication for anticoagulation: Left Upper Extremity DVT in the past although recent admission shows general resolution of blood clots -supratherapeutic INR resolved after vitamin K on this admission on 08/02/2019 -although coumadin has been held, INR is 2.1 from 08/07/2019, to 08/08/2019, to 08/09/2019 Elevated troponin likely due to demand ischemia from volume overload and hypoxia -mild troponin elevation on this admission but no chest pain and no ischemic EKG findings Pancytopenia -Likely secondary to underlying infection Hyperlipidemia: -continue statin GERD (gastroesophageal reflux disease): -continue PPI Hypothyroidism: -continue levothyroxine DVT prophylaxis: therapeutic INR of 2.1, no further heparin subcutaneous at this time because INR persistently therapeutic despite coumadin being held Admission and Anticipated Discharge Date Admission Date: July 31, 2019 Subjective recent normal head/neck imaging reviewed. no evidence of stroke. INR remains 2.1. Patient periodically with low blood sugars. Nurse asked to have juice at bedside when possible. patient answers questions appropriately. no acute distress. no acute pain. sometimes is hard of hearing because she does not have her hearing aids. no acute pain. patient breathing on room air Review of Systems Review of Systems: All systems reviewed & are unremarkable except as noted in HPI & below Physical Exam Constitutional: comfortable Eyes: PERRL, conjunctivae normal, anicteric sclerae EOM intact bilaterally Neck: normal visual inspection Respiratory: normal respiratory effort Cardiovascular: Rate/Rhythm: regular rate Gastrointestinal (Abdomen): normal bowel sounds, soft, nontender, no hepatosplenomegaly Musculoskeletal: Head/Neck/Chest: normocephalic and head atraumatic Neurologic: CN's II-XI intact bilaterally Psychiatric: Orientation: alert and cooperative Results & Data ([facility]) Vital Signs (Past 12 Hours) Vital Signs Temp Pulse Pulse Resp BP Pulse Ox 08/09/19 07:49 36.3 C L 79 20 124/68 93 08/09/19 06:55 82 20 98 08/09/19 03:00 36.7 C 86 20 120/74 97 08/09/19 01:07 105 H 08/09/19 00:50 86 18 96 08/09/19 00:00 36.8 C 87 20 126/70 97
[2019-08-09 08:43] LABS: Anisocytosis Present; Polychromasia 1+
--- NOTE | 2019-08-09 14:43 | Neurology Progress Note ---
Date of Service August 09, 2019 Assessment & Plan (1) Expressive aphasia: 1. MRI brain r/o stroke- no acute findings 2. carotid doppler evaluation of vascular issues-no significant stenosis or occlusion 3. PT/OT for discharge needs 4. dialysis M, W, F - continue as scheduled 5. Coumadin restart after pleurocentesis - history of DVT 6. no further intervention or images from neurology stand point 7. will be available for questions concerns. will sign off for now (2) Metabolic encephalopathy: (3) Acute respiratory failure with hypoxia: (4) ESRD (end stage renal disease) on dialysis: Admission and Anticipated Discharge Date Admission Date: July 31, 2019 Supervising Physician Co-Signing Physician Notes I have seen and discussed above patient with Dr Yifan Starr, neurology I saw Mrs. Kirby today. Her son was not present in the room. He is pleasantly confused, hearing impaired, and is very hesitant in her speech but I suspect this is her baseline based imaging clinically show no evidence for acute infarct involving the left hemisphere, no show evidence for diffuse leukoencephalopathy, and there is no evidence for significant extracranial carotid occlusive disease I suspect that she does have a baseline cognitive impairment, and that the concerns about fluctuating speech and perhaps some facial weakness probably are reflective of her underlying metabolic encephalopathy secondary to renal failure and a host of other issues Coumadin is going to be held so that the thoracentesis can be performed for establish whether or not diffusion is malignant secondary to her known breast carcinoma or transudate due to congestive heart failure Neurology is going to sign off the case as at present we really have no further diagnostic or therapeutic suggestions. If in the future she continues to have significant fluctuations and a question of a possible nonconvulsive seizure emerges then an EEG may be of value but for now I really do not think it is warranted show I think other than perhaps a mild generalized slowing consistent with encephalopathy Yifan Starr MD Nasima Ascencio is a 78 year old female who was brought to [facility] ED from [facility] on 07/31/2019 for evaluation of hypoxia. previously she was admitted on 07/11 - for hypoxia, volume overload, and AV fistula malfunction. She was transferred to [facility] on 07/17 for management of the AV fistula malformation. She underwent fistulogram and balloon angioplasty and was discharged to [facility] on 07/19. Report from [facility] she was having hypoxia for the past few days prior to presentation. They placed her on 2 L of oxygen via nasal cannula with improvement in oxygen saturations. She receives dialysis on Tuesday, Tuesday, Tuesday. She has had poor p.o. intake with no reports of nausea, vomiting, diarrhea. She makes very minimal urine. She was treated with IV Zoysn at admission. Today she is sitting up in bedside chair decreased speech issues today. Her son is not present in the room today. denies CP, SOB, abdominal pain, one sided weakness, numbness tingling, N, V, swallowing issues. Physical Exam Physical Exam: Gen: alert NAD, very VENETIE lungs course breath sounds CV RRR finger to nose no bi pass smile eye brow raise intact can say no ifs ands buts, identifies button thumb Results & Data ([facility]) Vital Signs (Past 12 Hours) Vital Signs Temp Pulse Pulse Resp BP Pulse Ox 08/09/19 11:44 36.3 C L 81 20 134/75 96 08/09/19 10:22 83 08/09/19 07:49 36.3 C L 79 20 124/68 93 08/09/19 06:55 82 20 98 08/09/19 03:00 36.7 C 86 20 120/74 97 Laboratory Results Abnormal lab results 08/08/19 08/08/19 08/08/19 Range/Units 16:35 16:36 16:57 RBC (4.2-5.4) M/uL Hgb (12.0-16.0) g/dL Hct (37-47) % MCV (80-100) fL MCHC (32-36) g/dL RDW Std Deviation (36.4-46.3) fL RDW Coeff of Archana (11.5-14.5) % Plt Count (130-400) K/uL MPV (7.4-10.4) fL Lymph # (Auto) (1.2-3.4) K/uL [place] # (Auto) (0.11-0.59) K/uL PT (9.0-12.0) Seconds INR (0.9-1.1) Sodium (136-145) mmol/L Potassium (3.5-5.1) mmol/L Chloride (98-107) mmol/L BUN (7-18) mg/dl Creatinine (0.6-1.2) mg/dl BUN/Creatinine Ratio (10-20) Glucose (70-99) mg/dl POC Glucose 53 L* 53 L* 57 L* (70-99) mg/dl 08/08/19 08/08/19 08/08/19 Range/Units 20:33 20:35 20:57 RBC (4.2-5.4) M/uL Hgb (12.0-16.0) g/dL Hct (37-47) % MCV (80-100) fL MCHC (32-36) g/dL RDW Std Deviation (36.4-46.3) fL RDW Coeff of Archana (11.5-14.5) % Plt Count (130-400) K/uL MPV (7.4-10.4) fL Lymph # (Auto) (1.2-3.4) K/uL [place] # (Auto) (0.11-0.59) K/uL PT (9.0-12.0) Seconds INR (0.9-1.1) Sodium (136-145) mmol/L Potassium (3.5-5.1) mmol/L Chloride (98-107) mmol/L BUN (7-18) mg/dl Creatinine (0.6-1.2) mg/dl BUN/Creatinine Ratio (10-20) Glucose (70-99) mg/dl POC Glucose 56 L* 60 L* 59 L* (70-99) mg/dl 08/08/19 08/09/19 08/09/19 Range/Units 20:59 04:08 04:39 RBC (4.2-5.4) M/uL Hgb (12.0-16.0) g/dL Hct (37-47) % MCV (80-100) fL MCHC (32-36) g/dL RDW Std Deviation (36.4-46.3) fL RDW Coeff of Archana (11.5-14.5) % Plt Count (130-400) K/uL MPV (7.4-10.4) fL Lymph # (Auto) (1.2-3.4) K/uL [place] # (Auto) (0.11-0.59) K/uL PT (9.0-12.0) Seconds INR (0.9-1.1) Sodium (136-145) mmol/L Potassium (3.5-5.1) mmol/L Chloride (98-107) mmol/L BUN (7-18) mg/dl Creatinine (0.6-1.2) mg/dl BUN/Creatinine Ratio (10-20) Glucose (70-99) mg/dl POC Glucose 59 L* 55 L* 100 H (70-99) mg/dl 08/09/19 08/09/19 08/09/19 Range/Units 07:39 07:39 07:39 RBC 3.40 L (4.2-5.4) M/uL Hgb 10.8 L (12.0-16.0) g/dL Hct 34.1 L (37-47) % MCV 100.3 H (80-100) fL MCHC 31.7 L (32-36) g/dL RDW Std Deviation 78.9 H (36.4-46.3) fL RDW Coeff of Archana 22.1 H (11.5-14.5) % Plt Count 110 L (130-400) K/uL MPV 11.7 H (7.4-10.4) fL Lymph # (Auto) 0.83 L (1.2-3.4) K/uL [place] # (Auto) 0.99 H (0.11-0.59) K/uL PT 20.3 H (9.0-12.0) Seconds INR 2.1 H (0.9-1.1) Sodium 132 L (136-145) mmol/L Potassium 3.4 L (3.5-5.1) mmol/L Chloride 95 L (98-107) mmol/L BUN 29 H (7-18) mg/dl Creatinine 3.56 H D (0.6-1.2) mg/dl BUN/Creatinine Ratio 8.1 L (10-20) Glucose 51 L* (70-99) mg/dl POC Glucose (70-99) mg/dl 08/09/19 08/09/19 08/09/19 Range/Units 07:39 07:40 08:01 RBC (4.2-5.4) M/uL Hgb (12.0-16.0) g/dL Hct (37-47) % MCV (80-100) fL MCHC (32-36) g/dL RDW Std Deviation (36.4-46.3) fL RDW Coeff of Archana (11.5-14.5) % Plt Count (130-400) K/uL MPV (7.4-10.4) fL Lymph # (Auto) (1.2-3.4) K/uL [place] # (Auto) (0.11-0.59) K/uL PT (9.0-12.0) Seconds INR (0.9-1.1) Sodium (136-145) mmol/L Potassium (3.5-5.1) mmol/L Chloride (98-107) mmol/L BUN (7-18) mg/dl Creatinine (0.6-1.2) mg/dl BUN/Creatinine Ratio (10-20) Glucose (70-99) mg/dl POC Glucose 59 L* 60 L* 61 L* (70-99) mg/dl 08/09/19 Range/Units 11:26 RBC (4.2-5.4) M/uL Hgb (12.0-16.0) g/dL Hct (37-47) % MCV (80-100) fL MCHC (32-36) g/dL RDW Std Deviation (36.4-46.3) fL RDW Coeff of Archana (11.5-14.5) % Plt Count (130-400) K/uL MPV (7.4-10.4) fL Lymph # (Auto) (1.2-3.4) K/uL [place] # (Auto) (0.11-0.59) K/uL PT (9.0-12.0) Seconds INR (0.9-1.1) Sodium (136-145) mmol/L Potassium (3.5-5.1) mmol/L Chloride (98-107) mmol/L BUN (7-18) mg/dl Creatinine (0.6-1.2) mg/dl BUN/Creatinine Ratio (10-20) Glucose (70-99) mg/dl POC Glucose 158 H (70-99) mg/dl Diagnostic Findings MRI brain-No acute intracranial abnormality. Scattered foci of T2 hyperintensity seen within the periventricular and subcortical white matter are nonspecific but favor microvascular ischemic change. Persistent sinus disease as described above. carotid doppler-no hemodynamically significant stenosis seen within the carotid arteries.
--- NOTE | 2019-08-09 14:50 | Pharmacy Report ---
Pharmacy Glycemic Short Note 2 - Date of Service August 09, 2019 - Glycemic Short BSG Results (Last 24 hours): 08/08/19 08/08/19 08/08/19 16:35 16:36 16:57 Glucose POC Glucose 53 L* 53 L* 57 L* 08/08/19 08/08/19 08/08/19 17:18 20:33 20:35 Glucose POC Glucose 78 56 L* 60 L* 08/08/19 08/08/19 08/08/19 20:57 20:59 21:55 Glucose POC Glucose 59 L* 59 L* 83 08/08/19 08/09/19 08/09/19 23:49 04:08 04:39 Glucose POC Glucose 70 55 L* 100 H 08/09/19 08/09/19 08/09/19 07:39 07:39 07:40 Glucose 51 L* POC Glucose 59 L* 60 L* 08/09/19 08/09/19 08/09/19 08:01 08:36 11:26 Glucose POC Glucose 61 L* 91 158 H OUTPATIENT ANTIDIABETIC REGIMEN: * NPH/Reg 13 units BIDM + regular sliding scale * A1c = 6.6 % 07/31/19 Risk Factors for Insulin Resistance: * Infection: Flu, pneumonia * Diet: dialysis diet * Steroids: Solumedrol 40 mg x 1 dose given , prednisone 40 mg daily-D/C'd 08/07 ASSESSMENT: 08/09/19: * Patient was hypoglycemic yesterday evening and overnight. She had received NPH 10 units yesterday morning but Prednisone was discontinued. * Therefore NPH was not continued today morning. Continued Novolog with correction factor. * Lunch BSG was only 158 today. 08/08/19: * BSGs well controlled yesterday ranging from (96-153) * Fasting on the lower end again this morning at 93, will decrease NPH again to 10 units with prednisone. Prednisone has since been d/c'd thus will stop NPH. * Patient was hypoglycemic at lunch. However, after discussion with the nurse, the patient did not eat much for breakfast (~10 g CHO) and then went right to dialysis and BSG was not taken until they returned. This likely contributed to this hypoglycemic episode. Will not alter novolog at this time, but will monitor. 08/07/19 * BSGs controlled yesterday, Range 117-136 units * 20 units of NPH with prednisone, Fasting this AM 96, decrease NPH dose to 15 units * Lunch BSG 108, will continue current Novolog parameters 08/05/19 * BSGs have increased as anticipated from the single dose of steroids * Silva has continued to have BSGs > 200 mg/dL through lunch today (using double the carb coverage for the steroid effects) * Anticipate glycemic effects to dissipate around dinner/HS today so will loosen CR at that time 08/04/19 * BSGs have been well controlled * Using 1-5 units of Novolog per day, no basal insulin * Anticipate BSGs to increase s/p steroid administration; therefore, will tighten CR 08/03/19 * Patient has used 5 units of novolog in past 24 hours, blood sugars ranging 101-147mg/dl. * HD today * No basal needed in past 3 days, discontinue * No further changes at this time 07/31/19 * 78 yo female from [facility] presenting with hypoxia, ESRD w/ dialysis MoWeThFr per hospitalist, an additional dialysis session today. Flu + pcr. Currently on zosyn for questionable infiltrate. MRSA negative * Patient was hypoglycemic on admission, with last insulin administration yesterday evening * 220 at lunch after administration of Dextrose, currently NPO. Will give reduced lantus dose with 1800 check if still elevated, patient undergoing dialysis at this time. Will use lantus over NPH to avoid peak while in NPO status PLAN FOR INPATIENT GLYCEMIC CONTROL: * NPH- none today * Bolus insulin - continued CF and no CR * NovoLog per scale ACHS or Q6hrs while NPO * Goal Range: Low 120 mg/dL - High 150 mg/dL - higher goal range to avoid hypoglycemia in HD pt * Correction Factor: 25 mg/dL/unit * Nutritional / Prandial insulin per carb ratio of 1 unit per 0 gm CHO starting with dinner PLAN FOR DISCHARGE: * Patient's A1c = 6.6% 02/28/19 * However, this result is likely somewhat unreliable in ESRD patients d/t interactions between the A1c analyzing technique and high levels of urea in ESRD, reduced RBC life span, iron deficiency anemia, and EPO administration. HbA1c > 7.5% in ESRD patient may overestimate the extent of hyperglycemia in ESRD patients. * Patient did present with hypoglycemia on admission and has not required any basal insulin during her stay here. Appears she is likely going to [facility] on discharge. May consider discharging on sliding scale insulin only if requirement remains low.
--- NOTE | 2019-08-09 16:00 | Nephrology Progress Note ---
Date of Service August 09, 2019 Assessment & Plan (1) Acute respiratory failure with hypoxia: Patient tested positive for flu. Generally does not require oxygen. CT chest done on 08/04/2019 showed large right pleural effusion. Had 2.5 L fluid removed on 07/31; had 2 L removed yesterday w/ improved breathing -on oseltamivir; also on zosyn for possible PNA (2) Volume overload: a chronic issue for her. has had 10 L fluid removed first 3 days of this week; on track today for another 4L -will continue extra dialysis as needed to optimize volume status continue strict 1.2 L fluid limit (3) ESRD (end stage renal disease) on dialysis: Tuesday via AV fistula: She tolerated dialysis well today with net UF of 2.5 L. -Daily BMP and CBC -next dialysis will be on Tuesday with target UF 2.5 litres (4) Anemia: Anemia of chronic disease. HGB 10. Transferrin saturation July 25 was 12%. She had been undergoing an IV iron load. also epo w/ tx Admission and Anticipated Discharge Date Admission Date: July 31, 2019 Subjective Patient feels well today denies any shortness of breath. She had dialysis yesterday. Mental status appears to be at baseline. Review of Systems Review of Systems: All systems reviewed & are unremarkable except as noted in HPI & below Physical Exam Physical Exam: General exam: Appears comfortable, no acute distress HEENT: Pupils are equal and reactive to light Neck: No JVD, neck is supple trachea is midline Respiratory system: Clear breath sounds bilaterally. Gastrointestinal: Abdomen is soft, non distended, non tender, bowel sounds are present CVS: Regular rate and rhythm. No murmurs, rubs or gallops Musculoskeletal: No joint or muscle tenderness Extremities: Non tender, no edema, peripheral pulses are present Neuro: Oriented, no tremors, no focal neurological deficits Skin: No rashes Access: AV fistula Results & Data ([facility]) Vital Signs (Past 12 Hours) Vital Signs Temp Pulse Pulse Resp BP Pulse Ox 08/09/19 15:14 81 08/09/19 14:56 36.9 C 80 20 118/55 L 96 08/09/19 11:44 36.3 C L 81 20 134/75 96 08/09/19 10:22 83 08/09/19 07:49 36.3 C L 79 20 124/68 93 08/09/19 06:55 82 20 98 Laboratory Results 08/09/19 07:39 08/09/19 07:39 WBC 6.32 RBC 3.40 L MCV 100.3 H MCH 31.8 MCHC 31.7 L RDW Std Deviation 78.9 H RDW Coeff of Archana 22.1 H Plt Count 110 L MPV 11.7 H (1) Volume overload Hypervolemia type: other Qualified Code(s): E87.79 - Other fluid overload (2) Anemia Anemia type: unspecified type Qualified Code(s): D64.9 - Anemia, unspecified
--- NOTE | 2019-08-09 16:53 | Pulmonology Progress Note ---
Date of Service August 09, 2019 Assessment & Plan (1) Pleural effusion on right: Continue to hold Coumadin INR still at 2.1 today Oxygenating well on room air. No chest pain or tightness. No back pain. No flank pain. No pleuritic pain. We will follow daily INR. When INR is below 1.7, will proceed with thoracentesis (2) Expressive aphasia: Expressive aphasia seems slightly improved today. Continue with left facial droop No headache CT scan of the head negative for acute findings but with motion artifact Discussed case with neurology today. Continue conservative treatment Continue with speech-language pathology for speech therapy inpatient and at discharge (3) History of DVT (deep vein thrombosis): Left upper extremity DVT diagnosed 03/31/2019 at [facility] Patient has been on Coumadin Patient did have supratherapeutic INR 5.4. Patient was given vitamin K. INR 2.1 still 08/09/2019 Consider bridging with heparin drip once INR drops for thoracentesis Will need to hold Coumadin 6 hours prior to thoracentesis (4) Breast cancer: Son reports no history of treatment for breast cancer for least the past 4 years We will send pleural effusion for cytology as well as other labs Thank you for including us in the care of this patient. Please refer to Dr. Obrien's addendum for further recommendations. We will continue to follow along with you. Subjective Attending: Dr. Obrien Patient seen and examined at bedside. She is sitting in bedside chair. She is oxygenating well on room air with no evidence of use of accessory muscles. She is able to speak in full sentences without any dyspnea. She has no cough for the duration of my visit. She reports that her shortness of breath is improved from yesterday. She still has a nonproductive cough. She denies any fever or chills. She indicates that her expressive a aphasia is improved from yesterday. She has no acute complaints. Review of Systems Review of Systems: All systems reviewed & are unremarkable except as noted in HPI & below Physical Exam Physical Exam: GENERAL : No acute distress EYES: No icterus, gaze conjugate NOSE: No evidence of epistaxis MOUTH: No lesions or candidiasis NECK: Supple LUNGS: CTA B/L, no wheezes, rales or rhonchi. Decreased breath sounds at the right base. HEART: Regular, rate controlled. Appears to be in normal sinus rhythm. ABDOMEN: Soft, NT, ND, BS Present EXTREMITIES: No LE edema, pedal pulses intact NEURO: A&OX3. Continuous slight left facial droop. Word finding seems to be improved. Results & Data ([facility]) Vital Signs (Past 12 Hours) Vital Signs Temp Pulse Pulse Pulse Pulse Pulse Resp 08/09/19 16:05 36.9 C 83 86 80 82 20 08/09/19 15:14 81 08/09/19 14:56 36.9 C 80 20 08/09/19 11:44 36.3 C L 81 20 08/09/19 10:22 83 08/09/19 07:49 36.3 C L 79 20 08/09/19 06:55 82 20 BP Pulse Ox 08/09/19 16:05 118/55 L 96 08/09/19 15:14 08/09/19 14:56 118/55 L 96 08/09/19 11:44 134/75 96 08/09/19 10:22 08/09/19 07:49 124/68 93 08/09/19 06:55 98 Laboratory Results 08/09/19 07:39 08/09/19 07:39 INR 2.1 (0.9-1.1) H 08/09/19 07:39 Diagnostic Findings No new diagnostic images PG Care Time/CCT Total # of Minutes Spent Total Time Spent with Patient: Total time spent is greater than 50% in coordi nation of care (as documented) at patient's floor/unit and/or counseling patient: 20 minutes Coding Level of Care Code 98008 Subseq Hosp Care Lvl 2 Diagnoses Pleural effusion on right J90 Expressive aphasia R47.01 History of DVT (deep vein thrombosis) Z86.718 Breast cancer C50.919
[2019-08-09] MEDS ORDERED: PHYTONADIONE 2.5 MG in SODIUM CHLORIDE 0.9% 50 ML IV STA (19:32)
[2019-08-09] MEDS: ATORVASTATIN 10 MG TAB PO SCH (20:31)
[2019-08-09] MEDS: PANTOprazole 40 MG TAB PO SCH (20:31)
[2019-08-10] MEDS ORDERED: SODIUM CHLORIDE 0.9% 1000ML 1,000 ML IV PRN (07:00)
[2019-08-10] MEDS ORDERED: HEPARIN SOD (PORCINE) 1000 UNIT/ML 10 ML VIAL IV ONE (07:00)
[2019-08-10 07:10] LABS: Basophils # (auto) 0.01 K/uL (0-0.2); Basophils % (auto) 0.1 %; Eosinophils # (auto) 0.07 K/uL (0-0.5); Hematocrit (blood only) 35.5 % (37-47); Hemoglobin 11.1 g/dL (12.0-16.0); Immature Granulocytes # (auto) 0.02 K/uL (0.00-0.02); Immature Granulocytes % (auto) 0.3 %; Lymphocytes # (auto) 1.12 K/uL (1.2-3.4); Lymphocytes % (auto) 16.4 %; Mean Corpuscular Hemoglobin 31.6 pg (25-34); Mean Corpuscular Hgb Conc 31.3 g/dL (32-36); Mean Corpuscular Volume 101.1 fL (80-100); Mean Platelet Volume 10.9 fL (7.4-10.4); Monocytes # (auto) 0.84 K/uL (0.11-0.59); Monocytes % (auto) 12.3 %; Neutrophils # (auto) 4.79 K/uL (1.4-6.5); Neutrophils % (auto) 69.9 %; Platelet Count 136 K/uL (130-400); RDW Coefficient of Variation 22.2 % (11.5-14.5); Red Blood Count 3.51 M/uL (4.2-5.4); White Blood Count 6.85 K/uL (4.8-10.8)
[2019-08-10 07:19] LABS: INR 1.7 (0.9-1.1); Prothrombin Time 16.9 Seconds (9.0-12.0)
[2019-08-10 07:53] LABS: Anisocytosis Present
[2019-08-10 07:55] LABS: BUN Creatinine Ratio 9.5 (10-20); Calcium 8.7 mg/dl (8.5-10.1); Creatinine Clr Calc Pharmacy 10.5 ml/min; Est GFR (African American) 10.7; Est GFR (Non-African American) 9.2; Potassium 4.2 mmol/L (3.5-5.1)
[2019-08-10] MEDS: DOXYCYCLINE HYCLATE 100 MG CAP PO SCH ×2 (07:56→20:42)
[2019-08-10] MEDS: METOPROLOL SUCC 25MG EXT REL TAB PO SCH (07:56)
[2019-08-10] MEDS: LACTOBACILLUS ACIDOPHILUS (FLORANEX) TAB PO SCH ×4 (07:56→20:42)
[2019-08-10] MEDS: INSULIN ASPART 100 UNITS/ML 3 ML PEN SC SCH ×4 (07:57→20:48)
--- NOTE | 2019-08-10 08:28 | Hospitalist Progress Note ---
Date of Service August 10, 2019 Assessment & Plan (1) Acute respiratory failure with hypoxia: 78-year-old female with history of ESRD, CHF systolic and diastolic type, diabetes type 2, DVT on Coumadin, presenting with shortness of breath. Acute respiratory failure with hypoxia (resolved) likely multifactorial from Volume overload , secondary to systolic and diastolic CHF, ESRD on hemodialysis, Influenza type A Possible pneumonia chronic Right pleural effusion (EF 25-29%, grade II diastolic dysfunction) -on hemodialysis -patient completed course of prednisone and Tamiflu -patient currently on doxycycline after initial course of Zosyn. last day of doxycycline is set for -nebulizers as needed. currently on room air -08/08/2019 Patient completed dialysis today. responds to questions appropriately despite known auditory impairments and currently does not have home hearing aide device. Her strength is symmetric of upper extremities. I do not appreciate aphasia on her exam. Neurology consulted because of precautionary workup to rule out stroke. patient's head CT normal on 08/07/2019. -08/09/2019: recent normal head/neck imaging reviewed. no evidence of stroke. INR remains 2.1. Patient periodically with low blood sugars. Nurse asked to have juice at bedside when possible. patient answers questions appropriately. no acute distress. no acute pain. sometimes is hard of hearing because she does not have her hearing aids. 08/10/2019: Patient's INR is 1.7. Hospitalist have called pulmonary service and asked if this is sufficient at this time for right sided pleural effusion to be performed. Patient is also due for hemodialysis today. will defer systemic IV heparin at this time, while awaiting for these services to be performed Metabolic encephalopathy, likely secondary to pneumonia, influenza infection, hypoglycemia -mental status improved after stopping Gabapentin -08/07/2019 ammonia levels 32.1 which high normal levels -head CT negative for intracranial findings; does show signs of acute right maxillary sinusitis -Brain MRI 08/08/2019: No acute intracranial abnormality. Scattered foci of T2 hyperintensity seen within the periventricular and subcortical white matter are nonspecific but favor microvascular ischemic change. Persistent sinus disease -carotid ultrasound 08/09/2019: No hemodynamically significant stenosis seen within the carotid arteries. Diabetes mellitus type 2, insulin dependent, with complications of hypoglycemia -hgb a1c 6.6 02/2019 -Pharmacy glycemic control is asked to prevent hypoglycemia Peripheral neuropathy -Hold gabapentin as it causes drowsiness Supratherapeutic INR -indication for anticoagulation: Left Upper Extremity DVT in the past although recent admission shows general resolution of blood clots -supratherapeutic INR resolved after vitamin K on this admission on 08/02/2019 -although coumadin has been held, INR is 2.1 from 08/07/2019, to 08/08/2019, to 08/09/2019 -INR is 1.7 on 08/10/2019 Elevated troponin likely due to demand ischemia from volume overload and hypoxia -mild troponin elevation on this admission but no chest pain and no ischemic EKG findings Pancytopenia -Likely secondary to underlying infection Hyperlipidemia: -continue statin GERD (gastroesophageal reflux disease): -continue PPI Hypothyroidism: -continue levothyroxine DVT prophylaxis: SCDs for now Admission and Anticipated Discharge Date Admission Date: July 31, 2019 Subjective Patient's INR is 1.7. Hospitalist have called pulmonary service and asked if this is sufficient at this time for right sided pleural effusion to be performed. Patient is also due for hemodialysis today. will defer systemic IV heparin at this time, while awaiting for these services to be performed patient is seen and examined while sitting up in the bed. breathing on room air. no chest pain. no abdomen pain. no vomiting. no fever Review of Systems Review of Systems: All systems reviewed & are unremarkable except as noted in HPI & below Physical Exam Constitutional: comfortable Eyes: PERRL, conjunctivae normal, anicteric sclerae EOM intact bilaterally Neck: normal visual inspection Respiratory: normal respiratory effort Cardiovascular: Rate/Rhythm: regular rate Gastrointestinal (Abdomen): normal bowel sounds, soft, nontender, no hepatosplenomegaly Musculoskeletal: Head/Neck/Chest: normocephalic and head atraumatic Neurologic: CN's II-XI intact bilaterally Psychiatric: Orientation: alert and cooperative Results & Data ([facility]) Vital Signs (Past 12 Hours) Vital Signs Temp Pulse Pulse Resp BP Pulse Ox 08/10/19 07:24 88 08/10/19 07:11 36.3 C L 93 H 20 128/73 96 08/10/19 04:01 36.5 C 64 18 111/69 93 08/10/19 00:13 90 08/09/19 23:34 36.3 C L 84 20 119/66 97
[2019-08-10] MEDS ORDERED: LIDOCAINE HCL 1% 20 ML VIAL ONE (15:54)
--- NOTE | 2019-08-10 16:37 | Procedure Note ---
Procedure Note Date of Service August 10, 2019 Note Procedure: Diagnostic and or therapeutic ultrasound-guided catheter thoracentesis Hydraulic Boom Operator: Dr. Jonah Larkin Indication: Pleural effusion Consent: Signed by patient and verified with timeout prior to procedure Anesthesia: 8 mL's of 1% lidocaine without epinephrine given locally Procedure: Consent was verified and timeout performed. Appropriate imaging studies were reviewed prior to the procedure. Patient was placed in a seated and limited thoracic ultrasound was performed of the right chest. See separate imaging. The site appropriate for thoracentesis was selected. The skin was prepped and draped in normal sterile fashion. Lidocaine was used for local analgesia. Fluid was aspirated via the finder needle. A small skin bartolo was made with the scalpel and the catheter over the needle apparatus was advanced over the rib into the pleural space. Using the syringe one-way valve system, a total of 900 mL's of eric fluid was removed. Procedure was terminated due to pain. The catheter was removed and observed to be intact. A sterile dressing was applied. Post procedure chest x-ray was ordered. Fluid was sent for LDH, total protein, cell count, glucose, pH, cytology, AFB cultures, gram stain and culture and fungal cultures. The patient tolerated the procedure well without obvious complication Coding CPT Codes Pulmonary/Thoracic - Pulmonary and Thoracic: 93158 Pleural drainage w/imaging ([id number]) [facility] [place] Procedure Codes (Charges) Pulmonary/Thoracic Procedure 1: Pulmonary and Thoracic: 53908 Pleural drainage w/imaging
--- NOTE | 2019-08-10 16:41 | Pulmonology Progress Note ---
Date of Service August 10, 2019 Assessment & Plan (1) Pleural effusion on right: Thoracentesis performed today. 900 ml of fluid removed. Sent to ernestine aponte's criteria and for cytology especially in light of history of breast ca. Patient notes she felt 50% better after the procedure. Ok to restart anticoagulation later tonight. Pulm will sign off. Please call with questions. (2) Expressive aphasia: (3) History of DVT (deep vein thrombosis): (4) Breast cancer: Subjective Patient sitting up in a chair today. She denies any significant shortness of breath, cough or chest pain. She told me that she wants the fluid removed from her chest so that it could help her balance. Physical Exam Physical Exam: GENERAL : No acute distress EYES: No icterus, gaze conjugate NOSE: No evidence of epistaxis MOUTH: No lesions or candidiasis NECK: Supple LUNGS: CTA B/L, no wheezes, rales or rhonchi. Decreased breath sounds at the right base. HEART: Regular, rate controlled. Appears to be in normal sinus rhythm. ABDOMEN: Soft, NT, ND, BS Present EXTREMITIES: No LE edema, pedal pulses intact NEURO: A&OX3. Continuous slight left facial droop. Word finding seems to be i mproved. Results & Data ([facility]) Vital Signs (Past 12 Hours) Vital Signs Temp Pulse Pulse Pulse Resp BP Pulse Ox 08/10/19 15:09 97.7 F 76 18 128/75 98 08/10/19 10:00 98.6 F 87 08/10/19 07:24 88 08/10/19 07:11 97.3 F L 93 H 20 128/73 96 PG Care Time/CCT Total # of Minutes Spent Total Time Spent with Patient: Total time spent is greater than 50% in coordination of care (as documented) at patient's floor/unit and/or counseling patient: Coding Level of Care Code 71580 Subseq Hosp Care Lvl 3 Diagnoses Pleural effusion on right J90 Expressive aphasia R47.01 History of DVT (deep vein thrombosis) Z86.718 Breast cancer C50.910
--- NOTE | 2019-08-10 16:46 | Nephrology Progress Note ---
Date of Service August 10, 2019 Assessment & Plan (1) Acute respiratory failure with hypoxia: Patient tested positive for flu. Generally does not require oxygen. CT chest done on 08/04/2019 showed large right pleural effusion. Had 2.5 L fluid removed on 07/31; patient will have dialysis today target UF of 2.5 L. (2) Volume overload: a chronic issue for her. has had 10 L fluid removed first 3 days of this week; on track today for another 4L -will continue extra dialysis as needed to optimize volume status continue strict 1.2 L fluid limit (3) ESRD (end stage renal disease) on dialysis: Tuesday via AV fistula: She tolerated dialysis well today with net UF of 2.5 L. -Daily BMP and CBC -patient to be dialyzed today with target UF 2.5 litres (4) Anemia: Anemia of chronic disease. HGB 10. Transferrin saturation July 25 was 12%. She had been undergoing an IV iron load. also epo w/ tx Admission and Anticipated Discharge Date Admission Date: July 31, 2019 Subjective She feels better today. She is less short of breath. Coughing is improving. Review of Systems Review of Systems: All systems reviewed & are unremarkable except as noted in HPI & below Physical Exam Physical Exam: General exam: Appears comfortable, no acute distress HEENT: Pupils are equal and reactive to light Neck: No JVD, neck is supple trachea is midline Respiratory system: Clear breath sounds bilaterally. Gastrointestinal: Abdomen is soft, non distended, non tender, bowel sounds are present CVS: Regular rate and rhythm. No murmurs, rubs or gallops Musculoskeletal: No joint or muscle tenderness Extremities: Non tender, no edema, peripheral pulses are present Neuro: Oriented, no tremors, no focal neurological deficits Skin: No rashes Access: Av fistula Results & Data ([facility]) Vital Signs (Past 12 Hours) Vital Signs Temp Pulse Pulse Pulse Resp BP Pulse Ox 08/10/19 15:09 36.5 C 76 18 128/75 98 08/10/19 10:00 37.0 C 87 08/10/19 07:24 88 08/10/19 07:11 36.3 C L 93 H 20 128/73 96 Laboratory Results 08/10/19 06:45 08/10/19 06:45 WBC 6.85 RBC 3.51 L MCV 101.1 H MCH 31.6 MCHC 31.3 L RDW Std Deviation 80.0 H RDW Coeff of Archana 22.2 H Plt Count 136 MPV 10.9 H (1) Volume overload Hypervolemia type: other Qualified Code(s): E87.79 - Other fluid overload (2) Anemia Anemia type: unspecified type Qualified Code(s): D64.9 - Anemia, unspecified
--- NOTE | 2019-08-10 16:54 | XRay Report ---
XR chest 1V portable HISTORY: 78 years-old Female s/p R sided thoracocentesis right pleural effusion with thoracentesis COMPARISON: Chest radiograph 08/03/2019 TECHNIQUE: Portable AP view of the chest FINDINGS: Cardiac silhouette is enlarged. The patient is slightly rotated towards the left. Pulmonary vascular congestion with moderately decreased pulmonary edema. Trace pleural effusions. The right pleural effu constance has decreased in size from comparison. Mild right greater than left bibasilar densities suggest atelectasis. No postprocedural pneumothorax. Hardware is noted about the left proximal humerus, parti ally imaged. Degenerative changes of the shoulders and spine. IMPRESSION: 1. Trace right pleural effusion has decreased in size status post thoracentesis. No postprocedural pn eumothorax identified. 2. Cardiomegaly with moderately improved pulmonary edema. 3. Minimal right greater than left bibasilar densities suggest atelectasis. ACT 112: Negative or not required by law. The above report was generated using voice recognition software. It may contain grammatical, syntax o r spelling errors. Electronically signed by: Milind Henry M.D. 08/10/2019 4:52 PM
[2019-08-10 17:21] LABS: Glucose Pleural Fluid 155 mg/dl
[2019-08-10 17:31] LABS: Appearance Pleural Fluid CLOUDY; Basophils, Fluid 0 %; Color Pleural Fluid AMBER; Eosinophils, Fluid 0 %; Lymphocytes, Fluid 12 %; Mono,Macrophage,Mesothelial 82 %; Neutrophils, Fluid 6 %; RBC Pleural Fluid (A) 9000 /uL; Source Pleural Fluid RIGHT LUNG; WBC Pleural Fluid (A) 208 /uL
[2019-08-10 17:32] LABS: LDH Pleural Fluid 119 U/L; Total Protein Pleural Fluid 3.3 g/dl
[2019-08-10] MEDS: ATORVASTATIN 10 MG TAB PO SCH (20:43)
[2019-08-10] MEDS: PANTOprazole 40 MG TAB PO SCH (21:05)
[2019-08-11 07:30] LABS: Eosinophils # (auto) 0.07 K/uL (0-0.5); Hematocrit (blood only) 32.6 % (37-47); Hemoglobin 10.2 g/dL (12.0-16.0); Immature Granulocytes # (auto) 0.02 K/uL (0.00-0.02); Immature Granulocytes % (auto) 0.3 %; Lymphocytes # (auto) 0.65 K/uL (1.2-3.4); Lymphocytes % (auto) 9.5 %; Mean Corpuscular Hemoglobin 31.9 pg (25-34); Mean Corpuscular Hgb Conc 31.3 g/dL (32-36); Mean Corpuscular Volume 101.9 fL (80-100); Monocytes # (auto) 0.66 K/uL (0.11-0.59); Monocytes % (auto) 9.6 %; Neutrophils # (auto) 5.47 K/uL (1.4-6.5); Neutrophils % (auto) 79.6 %; Platelet Count 103 K/uL (130-400); RDW Standard Deviation 81.4 fL (36.4-46.3); White Blood Count 6.87 K/uL (4.8-10.8)
[2019-08-11 07:41] LABS: INR 1.5 (0.9-1.1); Prothrombin Time 15.1 Seconds (9.0-12.0)
[2019-08-11 08:05] LABS: BUN Creatinine Ratio 9.7 (10-20); Calcium 8.4 mg/dl (8.5-10.1); Creatinine Clr Calc Pharmacy 13.2 ml/min; Est GFR (African American) 14.1; Est GFR (Non-African American) 12.2
[2019-08-11] MEDS: INSULIN ASPART 100 UNITS/ML 3 ML PEN SC SCH ×4 (08:07→20:41)
[2019-08-11] MEDS: METOPROLOL SUCC 25MG EXT REL TAB PO SCH (08:08)
[2019-08-11] MEDS: LACTOBACILLUS ACIDOPHILUS (FLORANEX) TAB PO SCH ×4 (08:08→20:38)
[2019-08-11] MEDS: DOXYCYCLINE HYCLATE 100 MG CAP PO SCH ×2 (08:08→20:40)
[2019-08-11 08:22] LABS: Anisocytosis Present; Polychromasia 1+
--- NOTE | 2019-08-11 09:03 | Nephrology Progress Note ---
Date of Service August 11, 2019 Assessment & Plan (1) Acute respiratory failure with hypoxia: Patient tested positive for flu. Generally does not require oxygen. CT chest done on 08/04/2019 showed large right pleural effusion. Respiratory status is improving with continued fluid removal at dialysis. Patient now on room air. (2) ESRD (end stage renal disease) on dialysis: Tuesday via AV fistula: She tolerated dialysis well yeste rd with net UF of 2.5 L. -Daily BMP and CBC -Next dialysis will be Tuesday (3) Anemia: Anemia of chronic disease. HGB 10. Transferrin saturation July 25 was 12%. She had been undergoing an IV iron load. also epo w/ tx Admission and Anticipated Discharge Date Admission Date: July 31, 2019 Subjective Patient feels better. She denies any shortness of breath. Cough is improving. She tolerated dialysis well yesterday. Review of Systems Review of Systems: All systems reviewed & are unremarkable except as noted in HPI & below Physical Exam Physical Exam: General exam: Appears comfortable, no acute distress HEENT: Pupils are equal and reactive to light Neck: No JVD, neck is supple trachea is midline Respiratory system: Crackles bilaterally. Gastrointestinal: Abdomen is soft, non distended, non tender, bowel sounds are present CVS: Regular rate and rhythm. No murmurs, rubs or gallops Musculoskeletal: No joint or muscle tenderness Extremities: Non tender, no edema, peripheral pulses are present Neuro: Oriented, no tremors, no focal neurological deficits Skin: No rashes Access: AV fistula Results & Data ([facility]) Vital Signs (Past 12 Hours) Vital Signs Temp Pulse Pulse Resp BP Pulse Ox 08/11/19 07:56 36.5 C 95 H 20 137/70 95 08/11/19 07:24 94 H 08/11/19 04:06 36.4 C L 93 H 20 113/56 L 93 08/11/19 01:38 97 H 08/11/19 00:33 37.6 C H 102 H 20 124/56 L 95 Laboratory Results 08/11/19 07:13 08/11/19 07:13 WBC 6.87 RBC 3.20 L MCV 101.9 H MCH 31.9 MCHC 31.3 L RDW Std Deviation 81.4 H RDW Coeff of Archana 22.0 H Plt Count 103 L MPV 11.0 H (1) Anemia Anemia type: unspecified type Qualified Code(s): D64.9 - Anemia, unspecified
--- NOTE | 2019-08-11 10:41 | Pulmonology Progress Note ---
Date of Service August 11, 2019 Assessment & Plan (1) Pleural effusion on right: Impression: 78-year-old female with multiple medical comorbidities and right-sided pleural effusion which is been chronic in nature status post thoracentesis. The fluid appears relatively bland without evidence of infection. Cytology is currently pending. Chest x-ray appears improved. Fluid consistent with transudate. No additional work-up needed. Recommendations: 1. Pleural effusion: Appears to have resolved radiographically. Fluid characteristics are not highly concerning. Would not recommend re-tapping if the fluid should reaccumulate. 2. Hypoxemia: Appears resolved currently. Pulmonary will sign off at this point time. Feel free to contact us if we can be of additional assistance. (2) Acute respiratory failure with hypoxia: Subjective Patient seen and examined. EMR reviewed. Discussed with Dr. Aguilar. Patient is status post thoracentesis on the right yesterday. She states her breathing is slightly better. No pain. No fevers chills or night sweats. No other acute issues overnight. Review of Systems Review of Systems: Unobtainable due to cognitive status Physical Exam Physical Exam: GENERAL : No acute distress EYES: No icterus, gaze conjugate NOSE: No evidence of epistaxis MOUTH: No lesions or candidiasis NECK: Supple LUNGS: CTA B/L, no wheezes, rales or rhonchi. Decreased breath sounds at the right base. HEART: Regular, rate controlled. Appears to be in normal sinus rhythm. ABDOMEN: Soft, NT, ND, BS Present EXTREMITIES: No LE edema, pedal pulses intact NEURO: A&OX3. Continuous slight left facial droop. Word finding seems to be improved. Results & Data ([facility]) Vital Signs (Past 12 Hours) Vital Signs Temp Pulse Pulse Resp BP Pulse Ox 08/11/19 07:56 36.5 C 95 H 20 137/70 95 08/11/19 07:24 94 H 08/11/19 04:06 36.4 C L 93 H 20 113/56 L 93 08/11/19 01:38 97 H 08/11/19 00:33 37.6 C H 102 H 20 124/56 L 95 Laboratory Results 08/11/19 07:13 08/11/19 07:13 Pleural fluid analysis: White blood cell count 208, red blood cell count 9000 Total protein 3.3 LDH 119 Glucose 115 Differential: 6% neutrophils, 12% lymphocytes, and 82% mesothelial cells, 0% eosinophils. Pleural fluid cultures are pending Gram stain showed few PMNs with no organisms Cytology pending Diagnostic Findings X-ray was independently reviewed. It demonstrates improved aeration at the right lung base. The left lung base is also better aerated. No evidence of pneumothorax. PG Care Time/CCT Total # of Minutes Spent Total Time Spent with Patient: Total time spent is greater than 50% in coordination of care (as documented) at patient's floor/unit and/or counseling patient: Coding Level of Care Code 65913 Subseq Hosp Care Lvl 3 Diagnoses Pleural effusion on right J90 Acute respiratory failure with hypoxia J96.01 Time Spent (min) 26
--- NOTE | 2019-08-11 10:53 | Hospitalist Progress Note ---
Date of Service August 11, 2019 Assessment & Plan (1) Acute respiratory failure with hypoxia: 78-year-old female with history of ESRD, CHF systolic and diastolic type, diabetes type 2, DVT on Coumadin, presenting with shortness of breath. Acute respiratory failure with hypoxia (resolved) likely multifactorial from Volume overload , secondary to systolic and diastolic CHF, ESRD on hemodialysis, Influenza type A Possible pneumonia chronic Right pleural effusion s/p thoracentesis on 08/10/2019 (EF 25-29%, grade II diastolic dysfunction) -on hemodialysis -patient completed course of prednisone and Tamiflu -patient currently on doxycycline after initial course of Zosyn. last day of doxycycline is set for 08/12/2019 -nebulizers as needed. currently on room air -08/08/2019 Patient completed dialysis today. responds to questions appropriately despite known auditory impairments and currently does not have home hearing aide device. Her strength is symmetric of upper extremities. I do not appreciate aphasia on her exam. Neurology consulted because of precautionary workup to rule out stroke. patient's head CT normal on 08/07/2019. -08/09/2019: recent normal head/neck imaging reviewed. no evidence of stroke. INR remains 2.1. Patient periodically with low blood sugars. Nurse asked to have juice at bedside when possible. patient answers questions appropriately. no acute distress. no acute pain. sometimes is hard of hearing because she does not have her hearing aids. 08/10/2019: Patient's INR is 1.7. patient had thoracentesis of the right sided pleural effusion and 900 cc was removed by pulmonary physician and appears to be transudate (Pleural fluid protein 3.3 divided by serum fluid protein 7.1 is less than 0.5 so not an exudate by Light's criteria. Pleural fluid LDH 119 divided by serum LDH 359 is less than 0.6 so not an exudate by Light's criteria) Supratherapeutic INR -indication for anticoagulation: Left Upper Extremity DVT in the past although recent admission shows general resolution of blood clots -supratherapeutic INR resolved after vitamin K on this admission on 08/02/2019 -although coumadin had been held, INR is 2.1 from 08/07/2019, to 08/08/2019, to 08/09/2019. INR is 1.7 on 08/10/2019 and right sided thoracentesis was accomplished -coumadin to be resumed on 08/11/2019 Metabolic encephalopathy, likely secondary to pneumonia, influenza infection, hypoglycemia -mental status improved after stopping Gabapentin -08/07/2019 ammonia levels 32.1 which are high normal levels -head CT negative for intracranial findings; does show signs of acute right maxillary sinusitis -Brain MRI 08/08/2019: No acute intracranial abnormality. Scattered foci of T2 hyperintensity seen within the periventricular and subcortical white matter are nonspecific but favor microvascular ischemic change. Persistent sinus disease -carotid ultrasound 08/09/2019: No hemodynamically significant stenosis seen within the carotid arteries. Diabetes mellitus type 2, insulin dependent, with complications of hypoglycemia -hgb a1c 6.6 02/2019 -Pharmacy glycemic control is asked to prevent hypoglycemia Peripheral neuropathy -Hold gabapentin as it causes drowsiness Elevated troponin likely due to demand ischemia from volume overload and hypoxia -mild troponin elevation on this admission but no chest pain and no ischemic EKG findings Pancytopenia -from chronic comorbidities including being on dialysis. white blood cell counts are normal Hyperlipidemia: -continue statin GERD (gastroesophageal reflux disease): -continue PPI Hypothyroidism: -continue levothyroxine DVT prophylaxis: SCDs. resume coumadin on 08/11/2019 Disposition: likely discharge to [facility] once next dialysis on 08/13/2019 can be completed Admission and Anticipated Discharge Date Admission Date: July 31, 2019 Subjective Patient had thoracentesis accomplished on 08/10/2019. patient remains breathing on room air. no acute distress. no abdomen pain. no vomiting. no fever. has auditory impairments and lack of hearing aids Review of Systems Review of Systems: All systems reviewed & are unremarkable except as noted in HPI & below Physical Exam Constitutional: comfortable Eyes: PERRL, conjunctivae normal, anicteric sclerae EOM intact bilaterally ENMT: external ear and nose normal, oropharynx normal Neck: normal visual inspection Respiratory: normal respiratory effort Cardiovascular: Rate/Rhythm: regular rate Gastrointestinal (Abdomen): normal bowel sounds, soft, nontender, no hepatosplenomegaly Musculoskeletal: Head/Neck/Chest: normocephalic and head atraumatic Neurologic: CN's II-XI intact bilaterally Psychiatric: Orientation: alert and cooperative Results & Data ([facility]) Vital Signs (Past 12 Hours) Vital Signs Temp Pulse Pulse Resp BP Pulse Ox 08/11/19 07:56 36.5 C 95 H 20 137/70 95 08/11/19 07:24 94 H 08/11/19 04:06 36.4 C L 93 H 20 113/56 L 93 08/11/19 01:38 97 H 08/11/19 00:33 37.6 C H 102 H 20 124/56 L 95
[2019-08-11] MEDS ORDERED: WARFARIN SOD 2 MG TAB PO SCH (16:00)
[2019-08-11] MEDS: PANTOprazole 40 MG TAB PO SCH (20:40)
[2019-08-11] MEDS: ATORVASTATIN 10 MG TAB PO SCH (20:40)
[2019-08-12] MEDS: BENZONATATE 100 MG CAPSULE PO PRN ×2 (01:57→23:33)
[2019-08-12 07:04] LABS: Basophils # (auto) 0.01 K/uL (0-0.2); Basophils % (auto) 0.1 %; Eosinophils # (auto) 0.13 K/uL (0-0.5); Eosinophils % (auto) 1.9 %; Hematocrit (blood only) 32.3 % (37-47); Hemoglobin 10.1 g/dL (12.0-16.0); Immature Granulocytes # (auto) 0.01 K/uL (0.00-0.02); Immature Granulocytes % (auto) 0.1 %; Lymphocytes # (auto) 0.88 K/uL (1.2-3.4); Mean Corpuscular Hemoglobin 31.6 pg (25-34); Mean Corpuscular Hgb Conc 31.3 g/dL (32-36); Mean Corpuscular Volume 100.9 fL (80-100); Mean Platelet Volume 10.6 fL (7.4-10.4); Monocytes % (auto) 11.8 %; Neutrophils # (auto) 4.96 K/uL (1.4-6.5); Neutrophils % (auto) 73.1 %; Platelet Count 115 K/uL (130-400); RDW Coefficient of Variation 21.7 % (11.5-14.5); RDW Standard Deviation 79.5 fL (36.4-46.3); White Blood Count 6.79 K/uL (4.8-10.8)
[2019-08-12 07:12] LABS: INR 1.3 (0.9-1.1)
[2019-08-12 07:39] LABS: BUN Creatinine Ratio 10.9 (10-20); Calcium 8.6 mg/dl (8.5-10.1); Creatinine Clr Calc Pharmacy 11.2 ml/min; Est GFR (African American) 11.6
[2019-08-12 07:44] LABS: Anisocytosis Present
[2019-08-12] MEDS: METOPROLOL SUCC 25MG EXT REL TAB PO SCH (08:02)
[2019-08-12] MEDS: INSULIN HUMAN NPH SC SCH ×2 (08:03→17:04)
[2019-08-12] MEDS: LACTOBACILLUS ACIDOPHILUS (FLORANEX) TAB PO SCH ×4 (08:03→20:13)
[2019-08-12] MEDS: INSULIN ASPART 100 UNITS/ML 3 ML PEN SC SCH ×4 (08:04→20:17)
[2019-08-12] MEDS: DOXYCYCLINE HYCLATE 100 MG CAP PO SCH (08:04)
--- NOTE | 2019-08-12 08:41 | Pharmacy Report ---
Pharmacy Glycemic Short Note 2 - Date of Service August 12, 2019 - Glycemic Short BSG Results (Last 24 hours): 08/11/19 08/11/19 08/11/19 07:13 07:47 11:47 Glucose 199 H POC Glucose 202 H 199 H 08/11/19 08/11/19 08/12/19 16:46 20:34 06:46 Glucose 187 H POC Glucose 184 H 187 H 08/12/19 07:40 Glucose POC Glucose 185 H OUTPATIENT ANTIDIABETIC REGIMEN: * NPH/Reg 70/30 13 units BIDM + regular sliding scale * A1c = 6.6 % 07/31/19 ASSESSMENT: BSGs over the previous 24hrs have been less than optimal: [phone]/dL. See adjustments detailed below: PLAN FOR INPATIENT GLYCEMIC CONTROL: * NPH- add scale BIDM, see MAR for further details * Bolus insulin - continue CF and add CR * NovoLog per scale ACHS or Q6hrs while NPO * Goal Range: Low 120 mg/dL - High 150 mg/dL - higher goal range to avoid hypoglycemia in HD pt * Correction Factor: 25 mg/dL/unit * Nutritional / Prandial insulin per carb ratio of 1 unit per 9 gm CHO starting with dinner
--- NOTE | 2019-08-12 10:18 | Nephrology Progress Note ---
Date of Service August 12, 2019 Assessment & Plan (1) Acute respiratory failure with hypoxia: Patient tested positive for flu. Generally does not require oxygen. CT chest done on 08/04/2019 showed large right pleural effusion. Respiratory status is improving with continued fluid removal at dialysis. Patient now on room air. (2) ESRD (end stage renal disease) on dialysis: Tuesday via AV fistula: She tolerated dialysis well 3/6 w ith net UF of 2.5 L. -Daily BMP and CBC -Next dialysis will be Tuesday (3) Anemia: Anemia of chronic disease. HGB 10. Transferrin saturation July 25 was 12%. She had been undergoing an IV iron load. also epo w/ tx Admission and Anticipated Discharge Date Admission Date: July 31, 2019 Subjective She feels well this morning denies any shortness of breath. No vomiting or diarrhea. She has had of hearing Review of Systems Review of Systems: All systems reviewed & are unremarkable except as noted in HPI & below Physical Exam Physical Exam: General exam: Appears comfortable, no acute distress HEENT: Pupils are equal and reactive to light Neck: No JVD, neck is supple trachea is midline Respiratory system: Clear breath sounds bilaterally. Gastrointestinal: Abdomen is soft, non distended, non tender, bowel sounds are present CVS: Regular rate and rhythm. No murmurs, rubs or gallops Musculoskeletal: No joint or muscle tenderness Extremities: Non tender, no edema, peripheral pulses are present Neuro: Oriented, no tremors, no focal neurological deficits Skin: No rashes Access: Left upper arm AV fistula with good bruit Results & Data ([facility]) Vital Signs (Past 12 Hours) Vital Signs Temp Pulse Pulse Resp BP Pulse Ox 08/12/19 07:17 84 08/12/19 04:21 95 H 08/12/19 04:11 36.5 C 95 H 18 110/63 93 08/11/19 22:42 36.5 C 93 H 20 121/64 97 Laboratory Results 08/12/19 06:46 08/12/19 06:46 WBC 6.79 RBC 3.20 L MCV 100.9 H MCH 31.6 MCHC 31.3 L RDW Std Deviation 79.5 H RDW Coeff of Archana 21.7 H Plt Count 115 L MPV 10.6 H (1) Anemia Anemia type: unspecified type Qualified Code(s): D64.9 - Anemia, unspecified
--- NOTE | 2019-08-12 12:43 | Hospitalist Progress Note ---
Date of Service August 12, 2019 Assessment & Plan (1) Acute respiratory failure with hypoxia: 78-year-old female with history of ESRD, CHF systolic and diastolic type, diabetes type 2, DVT on Coumadin, presenting with shortness of breath. Acute respiratory failure with hypoxia (resolved) likely multifactorial from Volume overload , secondary to systolic and diastolic CHF, ESRD on hemodialysis, Influenza type A Possible pneumonia chronic Right pleural effusion s/p thoracentesis on 08/10/2019 (EF 25-29%, grade II diastolic dysfunction) -on hemodialysis -patient completed course of prednisone and Tamiflu -patient currently on doxycycline after initial course of Zosyn. last day of doxycycline is set for 08/12/2019 -nebulizers as needed. currently on room air -08/08/2019 Patient completed dialysis today. responds to questions appropriately despite known auditory impairments and currently does not have home hearing aide device. Her strength is symmetric of upper extremities. I do not appreciate aphasia on her exam. Neurology consulted because of precautionary workup to rule out stroke. patient's head CT normal on 08/07/2019. -08/09/2019: recent normal head/neck imaging reviewed. no evidence of stroke. INR remains 2.1. Patient periodically with low blood sugars. Nurse asked to have juice at bedside when possible. patient answers questions appropriately. no acute distress. no acute pain. sometimes is hard of hearing because she does not have her hearing aids. 08/10/2019: Patient's INR is 1.7. patient had thoracentesis of the right sided pleural effusion and 900 cc was removed by pulmonary physician and appears to be transudate (Pleural fluid protein 3.3 divided by serum fluid protein 7.1 is less than 0.5 so not an exudate by Light's criteria. Pleural fluid LDH 119 divided by serum LDH 359 is less than 0.6 so not an exudate by Light's criteria) Supratherapeutic INR -indication for anticoagulation: Left Upper Extremity DVT in the past from March 2019 although recent admission shows general resolution of blood clots -supratherapeutic INR resolved after vitamin K on this admission on 08/02/2019 -although coumadin had been held, INR is 2.1 from 08/07/2019, to 08/08/2019, to 08/09/2019. INR is 1.7 on 08/10/2019 and right sided thoracentesis was accomplished -INR is 1.3 by 08/12/2019. after discussing with nephrology and patient's son Anthony [phone], will stop further coumadin and advise ultrasound of left upper extremity in 2 to 4 weeks to ensure no return of left extremity DVT off coumadin Metabolic encephalopathy, likely secondary to pneumonia, influenza infection, hypoglycemia -mental status improved after stopping Gabapentin -08/07/2019 ammonia levels 32.1 which are high normal levels -head CT negative for intracranial findings; does show signs of acute right maxillary sinusitis -Brain MRI 08/08/2019: No acute intracranial abnormality. Scattered foci of T2 hyperintensity seen within the periventricular and subcortical white matter are nonspecific but favor microvascular ischemic change. Persistent sinus disease -carotid ultrasound 08/09/2019: No hemodynamically significant stenosis seen within the carotid arteries. Diabetes mellitus type 2, insulin dependent, with complications of hypoglycemia -hgb a1c 6.6 02/2019 -Pharmacy glycemic control is asked to prevent hypoglycemia Peripheral neuropathy -Hold gabapentin as it causes drowsiness Elevated troponin likely due to demand ischemia from volume overload and hypoxia -mild troponin elevation on this admission but no chest pain and no ischemic EKG findings Pancytopenia -from chronic comorbidities including being on dialysis. white blood cell counts are normal Hyperlipidemia: -continue statin GERD (gastroesophageal reflux disease): -continue PPI Hypothyroidism: -continue levothyroxine DVT prophylaxis: SCDs. heparin subcutaneous q12 Disposition: likely discharge to [facility] once next dialysis on 08/13/2019 can be completed Admission and Anticipated Discharge Date Admission Date: July 31, 2019 Subjective Communicating with patient is difficult is difficult because she is hard of hearing without her hearing aids. generally her responses to questions are brief in 1 to 2 words. Patient does not have distress. breathing on room air. no pain reported. no symptoms reported Review of Systems Review of Systems: All systems reviewed & are unremarkable except as noted in HPI & below Physical Exam Constitutional: comfortable Eyes: PERRL, conjunctivae normal, anicteric sclerae EOM intact bilaterally ENMT: external ear and nose normal, oropharynx normal Neck: normal visual inspection Respiratory: normal respiratory effort Cardiovascular: Rate/Rhythm: regular rate Gastrointestinal (Abdomen): normal bowel sounds, soft, nontender, no hepatosplenomegaly Musculoskeletal: Head/Neck/Chest: normocephalic and head atraumatic Neurologic: CN's II-XI intact bilaterally Psychiatric: Orientation: alert and cooperative Results & Data ([facility]) Vital Signs (Past 12 Hours) Vital Signs Temp Pulse Pulse Resp BP Pulse Ox 08/12/19 11:53 36.8 C 93 H 20 118/68 96 08/12/19 07:17 84 08/12/19 04:21 95 H 08/12/19 04:11 36.5 C 95 H 18 110/63 93
[2019-08-12] MEDS: ATORVASTATIN 10 MG TAB PO SCH (20:12)
[2019-08-12] MEDS: PANTOprazole 40 MG TAB PO SCH (20:12)
[2019-08-12] MEDS: HEPARIN SOD 5,000 UNIT/0.5 ML VIAL SQ SCH (20:16)
[2019-08-13] MEDS ORDERED: SODIUM CHLORIDE 0.9% 1000ML 1,000 ML IV PRN (07:00)
[2019-08-13] MEDS ORDERED: HEPARIN SOD (PORCINE) 1000 UNIT/ML 10 ML VIAL IV ONE (07:00)
[2019-08-13] MEDS: HEPARIN SOD 5,000 UNIT/0.5 ML VIAL SQ SCH ×2 (08:07→20:33)
[2019-08-13] MEDS: METOPROLOL SUCC 25MG EXT REL TAB PO SCH (08:07)
[2019-08-13] MEDS: INSULIN ASPART 100 UNITS/ML 3 ML PEN SC SCH ×4 (08:07→20:34)
[2019-08-13] MEDS: LACTOBACILLUS ACIDOPHILUS (FLORANEX) TAB PO SCH ×2 (08:07→13:56)
[2019-08-13] MEDS: INSULIN HUMAN NPH SC SCH ×2 (08:08→17:19)
[2019-08-13 12:37] LABS: Hepatitis B Surface Ab Quant < 3.10 mIU/mL (>or=10mIU/mL Immune); Hepatitis B Surface Antibody Non-Immune
[2019-08-13 12:47] LABS: Hepatitis B Surface Antigen Neg (Neg)
[2019-08-13] MEDS: CARBOHYDRATES FOR HYPOGLYCEMIA PO PRN (13:57)
--- NOTE | 2019-08-13 14:23 | Nephrology Progress Note ---
Date of Service August 13, 2019 Assessment & Plan (1) Acute respiratory failure with hypoxia: Patient tested positive for flu. Generally does not require oxygen. CT chest done on 08/04/2019 showed large right pleural effusion. Respiratory status is improving with continued fluid removal at dialysis. Patient now on room air. (2) ESRD (end stage renal disease) on dialysis: Tuesday via AV fistula: She tolerated dialysis well 3/6 w ith net UF of 2.5 L. She is tolerating dialysis well today for target UF of 3 L. -Daily BMP and CBC -Next dialysis will be Tuesday (3) Anemia: Anemia of chronic disease. HGB 10. Transferrin saturation July 25 was 12%. She had been undergoing an IV iron load. also epo w/ tx Admission and Anticipated Discharge Date Admission Date: July 31, 2019 Subjective Patient was seen and examined while on dialysis. No shortness of breath or pain. She reports improvement. Review of Systems Review of Systems: All systems reviewed & are unremarkable except as noted in HPI & below Physical Exam Physical Exam: General exam: Appears comfortable, no acute distress HEENT: Pupils are equal and reactive to light Neck: No JVD, neck is supple trachea is midline Respiratory system: Clear breath sounds bilaterally. Gastrointestinal: Abdomen is soft, non distended, non tender, bowel sounds are present CVS: Regular rate and rhythm. No murmurs, rubs or gallops Musculoskeletal: No joint or muscle tenderness Extremities: Non tender, no edema, peripheral pulses are present Neuro: Oriented, no tremors, no focal neurological deficits Skin: No rashes Access: AV fistula Results & Data ([facility]) Vital Signs (Past 12 Hours) Vital Signs Temp Pulse Pulse Pulse Resp BP BP 08/13/19 12:20 87 109/69 08/13/19 12:00 86 119/54 L 08/13/19 11:40 86 112/61 08/13/19 11:20 85 119/56 L 08/13/19 11:00 86 105/50 L 08/13/19 10:40 85 123/56 L 08/13/19 10:20 85 120/56 L 08/13/19 10:00 84 129/57 L 08/13/19 09:40 82 122/57 L 08/13/19 09:20 83 123/54 L 08/13/19 09:05 36.9 C 85 08/13/19 07:10 36.3 C L 90 20 119/64 08/13/19 02:45 36.2 C L 92 H 16 119/68 Pulse Ox 08/13/19 12:20 08/13/19 12:00 08/13/19 11:40 08/13/19 11:20 08/13/19 11:00 08/13/19 10:40 08/13/19 10:20 08/13/19 10:00 08/13/19 09:40 08/13/19 09:20 08/13/19 09:05 08/13/19 07:10 96 08/13/19 02:45 97 Laboratory Results 08/12/19 06:46 (1) Anemia Anemia type: unspecified type Qualified Code(s): D64.9 - Anemia, unspecified
--- NOTE | 2019-08-13 15:20 | Hospitalist Progress Note ---
Date of Service August 13, 2019 Assessment & Plan (1) Acute respiratory failure with hypoxia: 78-year-old female with history of ESRD, CHF systolic and diastolic type, diabetes type 2, DVT on Coumadin, presenting with shortness of breath. Acute respiratory failure with hypoxia (resolved) likely multifactorial from Volume overload , secondary to systolic and diastolic CHF, ESRD on hemodialysis, Influenza type A Possible pneumonia chronic Right pleural effusion s/p thoracentesis on 08/10/2019 (EF 25-29%, grade II diastolic dysfunction) -on hemodialysis -patient completed course of prednisone and Tamiflu -patient currently on doxycycline after initial course of Zosyn. last day of doxycycline completed on 08/12/2019 -nebulizers as needed. currently on room air -08/08/2019 Patient completed dialysis. responds to questions appropriately despite known auditory impairments and currently does not have home hearing aide device. Her strength is symmetric of upper extremities. I do not appreciate aphasia on her exam. Neurology consulted because of precautionary workup to rule out stroke. patient's head CT normal on 08/07/2019. -08/09/2019: recent normal head/neck imaging reviewed. no evidence of stroke. INR remains 2.1. Patient periodically with low blood sugars. Nurse asked to have juice at bedside when possible. patient answers questions appropriately. no acute distress. no acute pain. sometimes is hard of hearing because she does not have her hearing aids. 08/10/2019: Patient's INR is 1.7. patient had thoracentesis of the right sided pleural effusion and 900 cc was removed by pulmonary physician and appears to be transudate (Pleural fluid protein 3.3 divided by serum fluid protein 7.1 is less than 0.5 so not an exudate by Light's criteria. Pleural fluid LDH 119 divided by serum LDH 359 is less than 0.6 so not an exudate by Light's criteria) 08/13/2019: dialysis session was completed Supratherapeutic INR -indication for anticoagulation: history of left upper extremity superficial venous thrombosis involving left basilic and cephalic vein in March 2019 although recent testing at [facility] on previous hospitalization shows general resolution of blood clots on 07/12/2019 workup with vascular flow of the AV fistula. -supratherapeutic INR resolved after vitamin K on this admission on 08/02/2019 -although coumadin had been held, INR is 2.1 from 08/07/2019, to 08/08/2019, to 08/09/2019. INR is 1.7 on 08/10/2019 and right sided thoracentesis was accomplished -INR is 1.3 by 08/12/2019. after discussing with nephrology and patient's son Anthony [phone], will stop further coumadin and advise ultrasound of left upper extremity in 2 to 4 weeks to ensure no return of left extremity DVT off coumadin Metabolic encephalopathy, likely secondary to pneumonia, influenza infection, hypoglycemia -mental status improved after stopping Gabapentin -08/07/2019 ammonia levels 32.1 which are high normal levels -head CT negative for intracranial findings; does show signs of acute right maxillary sinusitis -Brain MRI 08/08/2019: No acute intracranial abnormality. Scattered foci of T2 hyperintensity seen within the periventricular and subcortical white matter are nonspecific but favor microvascular ischemic change. Persistent sinus disease -carotid ultrasound 08/09/2019: No hemodynamically significant stenosis seen within the carotid arteries. AUDITORY IMPAIRMENT -Patient's son describes the device that patient was seen to have on last admission as a "pocket talker" which helped with patient's hearing and speech but has become missing -patient's lack of her own personal device during this hospital stay hampers patient's ability to hear properly and hear herself pronouncer has caused other medical providers to misconstrue her speech pattern as a an aphasia such as that potentially caused by a stroke or inability to follow directions. THERE IS NO STROKE. stroke has been ruled out on this admission. -nursing staff has been able to obtain an amplifier and will show patient how to use it Diabetes mellitus type 2, insulin dependent, with complications of hypoglycemia -hgb a1c 6.6 02/2019 -Pharmacy glycemic control has been following the patient to prevent hypoglycemia Peripheral neuropathy -Hold gabapentin as it causes drowsiness Elevated troponin likely due to demand ischemia from volume overload and hypoxia -mild troponin elevation on this admission but no chest pain and no ischemic EKG findings Pancytopenia -from chronic comorbidities including being on dialysis. white blood cell counts are normal Hyperlipidemia: -continue statin GERD (gastroesophageal reflux disease): -continue PPI Hypothyroidism: -continue levothyroxine DVT prophylaxis: heparin subcutaneous q12 Disposition: likely discharge to [facility] on 08/14/2019 Admission and Anticipated Discharge Date Admission Date: July 31, 2019 Subjective Patient is given a sound amplifier from the hospital. Patient does not know how to use it. Nurse is instructed to show her. Dialysis completed on 08/13/2019. Plan is for hospital discharge on 08/14/2019 to [facility]. Patient breathing on room air. no respiratory distress. no pain. Review of Systems Review of Systems: All systems reviewed & are unremarkable except as noted in HPI & below Physical Exam Constitutional: comfortable Eyes: PERRL, conjunctivae normal, anicteric sclerae EOM intact bilaterally ENMT: external ear and nose normal, oropharynx normal Neck: normal visual inspection Respiratory: normal respiratory effort Cardiovascular: Rate/Rhythm: regular rate Gastrointestinal (Abdomen): normal bowel sounds, soft, nontender, no hepatosplenomegaly Musculoskeletal: Head/Neck/Chest: normocephalic and head atraumatic Neurologic: CN's II-XI intact bilaterally Psychiatric: Orientation: alert and cooperative Results & Data ([facility]) Vital Signs (Past 12 Hours) Vital Signs Temp Pulse Pulse Resp BP BP Pulse Ox 08/13/19 15:10 36.8 C 93 H 18 121/65 95 08/13/19 12:20 87 109/69 08/13/19 12:00 86 119/54 L 08/13/19 11:40 86 112/61 08/13/19 11:20 85 119/56 L 08/13/19 11:00 86 105/50 L 08/13/19 10:40 85 123/56 L 08/13/19 10:20 85 120/56 L 08/13/19 10:00 84 129/57 L 08/13/19 09:40 82 122/57 L 08/13/19 09:20 83 123/54 L 08/13/19 09:05 36.9 C 85 08/13/19 07:10 36.3 C L 90 20 119/64 96
[2019-08-13] MEDS: PANTOprazole 40 MG TAB PO SCH (20:33)
[2019-08-13] MEDS: ATORVASTATIN 10 MG TAB PO SCH (20:33)
[2019-08-14] MEDS: BENZONATATE 100 MG CAPSULE PO PRN (00:22)
[2019-08-14] MEDS ORDERED: guaiFENesin SUGAR FREE 200 MG/10 ML UDC PO PRN (01:30)
[2019-08-14] MEDS: METOPROLOL SUCC 25MG EXT REL TAB PO SCH (07:39)
[2019-08-14] MEDS: INSULIN ASPART 100 UNITS/ML 3 ML PEN SC SCH (08:40)
[2019-08-14] MEDS: HEPARIN SOD 5,000 UNIT/0.5 ML VIAL SQ SCH (08:40)
[2019-08-14] MEDS: INSULIN HUMAN NPH SC SCH (08:41)
--- NOTE | 2019-08-14 09:03 | Discharge Summary ---
Date of Service August 14, 2019 Admission HPI Per Admitting Provider 78 year old female who presents to the ED from [facility] for evaluation of hypoxia. Patient recently admitted to [facility] 07/11 - 07/17 for hypoxia, volume overload, and AV fistula malfunction. Patient was [place] [facility] [place] for management of the AV fistula malformation. She underwent fistulogram and balloon angioplasty and was discharged to [facility] on 07/19. History is currently unobtainable from the patient. Per the staff at [facility], patient has been having hypoxia for the past few days. They placed her on 2 L of oxygen via nasal cannula with improvement in oxygen saturations. However patient will remove the oxygen from time to time. They have due to wheezing and orthopnea. Patient receives dialysis on Tuesday, Tuesday, Tuesday. 4 L was removed yesterday and last weeks total was 9 L. They also report the patient has had poor p.o. intake however no reports of nausea, vomiting, diarrhea. Patient is typically alert and oriented x3 at baseline. No reported fevers or chills. Patient makes very minimal urine. In the ED, patient is found to be hypoxic on room air at 85%. She was placed on BiPAP for a short period of time however is now saturating well on nasal cannula. Labs show mildly elevated troponin 0.276. No acute EKG changes. CXR shows infiltrate versus pulmonary edema. Patient was given IV Zosyn. Principal Diagnosis Acute respiratory failure with hypoxia (resolved) Influenza A End Stage Renal Disease on hemodialysis Congestive Heart Failure Chronic Right sided Pleural effusion Type 2 diabetes mellitus with hypoglycemia without coma with jail current use of insulin Metabolic encephalopathy Auditory impairment Discharge Exam Constitutional comfortable Eyes PERRL, conjunctivae normal, anicteric sclerae EOM intact bilaterally ENMT external ear and nose normal, oropharynx normal Neck normal visual inspection Respiratory normal respiratory effort Cardiovascular Rate/Rhythm: regular rate Gastrointestinal (Abdomen) normal bowel sounds, soft, nontender, no hepatosplenomegaly Musculoskeletal Head/Neck/Chest: normocephalic and head atraumatic Neurologic CN's II-XI intact bilaterally Psychiatric Orientation: alert and cooperative Discharge Data Allergies Allergy/AdvReac Type Severity Reaction Status Date / Time fish derived Allergy Severe Anaphylaxis Verified 07/31/19 08:28 alcohol Allergy Intermediate bumps on Verified 07/31/19 08:28 skin with alcohol wipes Aminoglycosides Allergy Intermediate Rash Verified 07/31/19 08:28 polymyxin B Allergy Intermediate Rash Verified 07/31/19 08:28 neomycin Allergy Mild Rash Verified 07/31/19 08:28 iodine Allergy Unknown Unknown Verified 07/31/19 08:28 promethazine Allergy Unknown Unknown Verified 07/31/19 08:28 aminophylline Allergy Unknown Verified 07/31/19 08:28 nystatin Allergy Unknown Verified 07/31/19 08:28 adhesive AdvReac Mild bumps on Verified 07/31/19 08:28 skin with "tape" Consultations 07/31/19 09:28 ED Decision to Admit Stat 07/31/19 11:52 Consult Case Management - Discharge Planning Routine Consult Nephrology Routine 08/07/19 11:44 Consult Pulmonology Routine 08/08/19 09:39 Consult Neurology Routine Ordered Studies 07/31/19 10:08 CT head/brain wo con Stat 08/04/19 12:40 CT chest wo con Routine 08/07/19 15:00 CT head/brain wo con Urgent 08/08/19 09:42 MR brain wo con Routine 08/08/19 15:37 US carotid doppler BI Routine 08/10/19 12:16 US point of care ultrasound Urgent Hospital Course (1) Acute respiratory failure with hypoxia: 78-year-old female with history of ESRD, CHF systolic and diastolic type, diabetes type 2, DVT on Coumadin, presenting with shortness of breath. Acute respiratory failure with hypoxia (resolved) likely multifactorial from Volume overload , secondary to systolic and diastolic CHF, ESRD on hemodialysis, Influenza type A Possible pneumonia chronic Right pleural effusion s/p thoracentesis on 08/10/2019 (EF 25-29%, grade II diastolic dysfunction) -on hemodialysis -patient completed course of prednisone and Tamiflu -patient currently on doxycycline after initial course of Zosyn. last day of doxycycline completed on 08/12/2019 -nebulizers as needed. currently on room air -08/08/2019 Patient completed dialysis. responds to questions appropriately despite known auditory impairments and currently does not have home hearing aide device. Her strength is symmetric of upper extremities. I do not appreciate aphasia on her exam. Neurology consulted because of precautionary workup to rule out stroke. patient's head CT normal on 08/07/2019. -08/09/2019: recent normal head/neck imaging reviewed. no evidence of stroke. INR remains 2.1. Patient periodically with low blood sugars. Nurse asked to have juice at bedside when possible. patient answers questions appropriately. no acute distress. no acute pain. sometimes is hard of hearing because she does not have her hearing aids. 08/10/2019: Patient's INR is 1.7. patient had thoracentesis of the right sided pleural effusion and 900 cc was removed by pulmonary physician and appears to be transudate (Pleural fluid protein 3.3 divided by serum fluid protein 7.1 is less than 0.5 so not an exudate by Light's criteria. Pleural fluid LDH 119 divided by serum LDH 359 is less than 0.6 so not an exudate by Light's criteria) 08/13/2019: dialysis session was completed Supratherapeutic INR -indication for anticoagulation: history of left upper extremity superficial venous thrombosis involving left basilic and cephalic vein in March 2019 although recent testing at [facility] on previous hospitalization shows general resolution of blood clots on 07/12/2019 workup with vascular flow of the AV fistula. -supratherapeutic INR resolved after vitamin K on this admission on 08/02/2019 -although coumadin had been held, INR is 2.1 from 08/07/2019, to 08/08/2019, to 08/09/2019. INR is 1.7 on 08/10/2019 and right sided thoracentesis was accomplished -INR is 1.3 by 08/12/2019. after discussing with nephrology and patient's son Anthony [phone], will stop further coumadin and advise ultrasound of left upper extremity in 2 to 4 weeks to ensure no return of left extremity DVT off coumadin Metabolic encephalopathy, likely secondary to pneumonia, influenza infection, hypoglycemia -mental status improved after stopping Gabapentin -08/07/2019 ammonia levels 32.1 which are high normal levels -head CT negative for intracranial findings; does show signs of acute right maxillary sinusitis -Brain MRI 08/08/2019: No acute intracranial abnormality. Scattered foci of T2 h yperintensity seen within the periventricular and subcortical white matter are nonspecific but favor microvascular ischemic change. Persistent sinus disease -carotid ultrasound 08/09/2019: No hemodynamically significant stenosis seen within the carotid arteries. AUDITORY IMPAIRMENT -Patient's son describes the device that patient was seen to have on last admission as a "pocket talker" which helped with patient's hearing and speech but has become missing -patient's lack of her own personal device during this hospital stay hampers patient's ability to hear properly and hear herself pronouncer has caused other medical providers to misconstrue her speech pattern as a an aphasia such as that potentially caused by a stroke or inability to follow directions. THERE IS NO STROKE. stroke has been ruled out on this admission. -nursing staff has been able to obtain an [employer] Loud Ear amplifier device Diabetes mellitus type 2, insulin dependent, with complications of hypoglycemia -hgb a1c 6.6 07/31/19 -Pharmacy glycemic control has been following the patient to prevent hypoglycemia while inpatient -patient may resume NPH/Reg 70/30 13 units BIDM + regular sliding scale on discharge Peripheral neuropathy -have discontinued gabapentin on this hospital stay as it causes drowsiness and stopped from discharge medication list Elevated troponin likely due to demand ischemia from volume overload and hypoxia -mild troponin elevation on this admission but no chest pain and no ischemic EKG findings Pancytopenia -from chronic comorbidities including being on dialysis. white blood cell counts are normal Hyperlipidemia: -continue statin GERD (gastroesophageal reflux disease): -continue PPI Hypothyroidism: -continue levothyroxine Disposition: discharge to [facility] on 08/14/2019 Total Time Total Time Spent Total Time Spent (In Minutes): 40 minutes Total Time Includes: Examination of the Patient, Discharge Planning, Medication Reconciliation and Communication With Other Providers Discharge Plan Discharge Items Patient Disposition: Transfer Inpatient Rehab Fac Reason For Visit: HYPOXIA,AMS Discharge Diagnosis: Acute respiratory failure with hypoxia (resolved) Influenza A End Stage Renal Disease on hemodialysis Congestive Heart Failure Chronic Right sided Pleural effusion Type 2 diabetes mellitus with hypoglycemia without coma with jail current use of insulin Metabolic encephalopathy Auditory impairment Condition on Discharge: Good Activity: Per Instructions section Non-emergency contact: Primary Care Provider Call non-emergency contact if: you have any medication questions Follow-up/Referrals: [facility] [Primary Care Provider] - Diet: Carb Consistent or DM2 and Dialysis Renal Fluids: 1200ml (5 cups) Diet Comment: minced moist diet Chana Attending Provider Instructions: discharge to [facility] continue dialysis every Tuesday patient has primary care follow up appointment on 08/17/2019 11:20 AM Provider Chandu Johnson MD Department General Internal Medicine [facility] [employer] Provider Instructions: see accompanying discharge summary Pending Studies at Discharge: No Stand-Alone Forms: My [facility] Skilled Items Patient informed of condition?: Yes DNR: Yes Discharge Level of Care: Acute rehab Communicable Disease: No Discharge Prognosis: Stable Lines: None Urinary Catheter: No Medications and DC Order Prescriptions: Continued benzonatate 100 mg capsule 100 mg PO TID PRN (Reason: Cough) RF: 0 multivitamin Capsule 1 cap PO QAM RF: 0 acetaminophen [Tylenol] 325 mg Tablet 650 mg PO BID PRN (Reason: Pain) RF: 0 ipratropium-albuterol 0.5 mg-3 mg(2.5 mg base)/3 mL Solution For Nebulization 3 ml INHALATION Q4H PRN (Reason: sob/wheezing) RF: 0 torsemide 20 mg Tablet 80 mg PO SUTUTHSA RF: 0 metoprolol succinate 25 mg Tablet Extended Release 24 Hr 25 mg PO QAM RF: 0 insulin NPH and regular human 100 unit/mL (70-30) Insulin Pen 13 unit SUBCUT BIDM RF: 0 levothyroxine 75 mcg Tablet 75 mcg PO DAILY@0600 RF: 0 montelukast 10 mg Tablet 10 mg PO HS RF: 0 Renal Caps 1 mg Capsule 1 cap PO QAM RF: 0 atorvastatin 10 mg Tablet 10 mg PO HS RF: 0 pantoprazole 40 mg Tablet,Delayed Release (Dr/Ec) 40 mg PO HS RF: 0 melatonin 3 mg Tablet 3 mg PO HS RF: 0 Humulin R Regular U-100 Insuln 100 unit/mL Solution 1 sliding scale dose SUBCUT ACHS RF: 0 Discontinued losartan 25 mg Tablet 12.5 mg PO QAM RF: 0 gabapentin 100 mg capsule 100 mg PO MOWEFR RF: 0 gabapentin 100 mg capsule 100 mg PO HS RF: 0 warfarin 2 mg Tablet 2 mg PO HS RF: 0 Admission Data Admit Date/Time: 07/31/19 10:11 Attending Provider: Magdiel Benson Admit Provider: Magdiel Benson Primary Care Provider: Sammy Brown [facility]: [facility] ; Mago Aponte ; Magdiel Benson ; Judith Coughlin ; Jere Obrien ; Yifan Starr Other Interventions: Discharge Summary Assessment (RN) Last Done: 08/09/19 16:05
--- NOTE | 2019-08-14 09:42 | Nephrology Progress Note ---
Date of Service August 14, 2019 Assessment & Plan (1) Acute respiratory failure with hypoxia: Patient tested positive for flu. Generally does not require oxygen. CT chest done on 08/04/2019 showed large right pleural effusion. Respiratory status is improving with continued fluid removal at dialysis. Patient now on room air. (2) ESRD (end stage renal disease) on dialysis: Tuesday via AV fistula: She tolerated dialysis well 08/09, 08/12 with net UF of 2.5 L and 3 L respectively. Next dialysis will be tomorrow. -Daily BMP and CBC -Next dialysis will be Tuesday (3) Anemia: Anemia of chronic disease. HGB 10. Transferrin saturation July 25 was 12%. She had been undergoing an IV iron load. also epo w/ tx Admission and Anticipated Discharge Date Admission Date: July 31, 2019 Subjective Patient feels better today denies any shortness of breath. She is eating and drinking well. She had dialysis yesterday. Review of Systems Review of Systems: All systems reviewed & are unremarkable except as noted in HPI & below Physical Exam Physical Exam: General exam: Appears comfortable, no acute distress HEENT: Pupils are equal and reactive to light Neck: No JVD, neck is supple trachea is midline Respiratory system: Clear breath sounds bilaterally. Gastrointestinal: Abdomen is soft, non distended, non tender, bowel sounds are present CVS: Regular rate and rhythm. No murmurs, rubs or gallops Musculoskeletal: No joint or muscle tenderness Extremities: Non tender, no edema, peripheral pulses are present Neuro: Oriented, no tremors, no focal neurological deficits Skin: No rashes Access: AV fistula Results & Data ([facility]) Vital Signs (Past 12 Hours) Vital Signs Temp Pulse Pulse Resp BP Pulse Ox 08/14/19 07:14 36.6 C 96 H 20 132/73 95 08/13/19 23:11 36.9 C 93 H 18 120/69 94 Laboratory Results 08/12/19 06:46 (1) Anemia Anemia type: unspecified type Qualified Code(s): D64.9 - Anemia, unspecified
== END 2019-08-14 11:55 | DRG 193 ==
LOC: ED 07:43 → SUATTDRO 10:11 → 1E 10:11 → 2S 08-03 03:05 → 2W 08-06 22:11

== ENCOUNTER 2021-04-08 08:02 | Inpatient (IN) ==
[2021-04-08 08:52] LABS: Basophils # (auto) 0.05 K/uL (0-0.2); Basophils % (auto) 0.7 %; Eosinophils # (auto) 0.22 K/uL (0-0.5); Hematocrit (blood only) 34.1 % (37-47); Hemoglobin 10.8 g/dL (12.0-16.0); Immature Granulocytes # (auto) 0.02 K/uL (0.00-0.02); Immature Granulocytes % (auto) 0.3 %; Lymphocytes # (auto) 2.33 K/uL (1.2-3.4); Lymphocytes % (auto) 32.2 %; Mean Corpuscular Hemoglobin 34.3 pg (25-34); Mean Corpuscular Hgb Conc 31.7 g/dL (32-36); Mean Corpuscular Volume 108.3 fL (80-100); Mean Platelet Volume 10.6 fL (7.4-10.4); Monocytes # (auto) 0.88 K/uL (0.11-0.59); Monocytes % (auto) 12.2 %; Neutrophils # (auto) 3.73 K/uL (1.4-6.5); Neutrophils % (auto) 51.6 %; Platelet Count 182 K/uL (130-400); RDW Coefficient of Variation 14.8 % (11.5-14.5); RDW Standard Deviation 58.2 fL (36.4-46.3); Red Blood Count 3.15 M/uL (4.2-5.4); White Blood Count 7.23 K/uL (4.8-10.8)
[2021-04-08 09:00] LABS: Alanine Aminotransferase 50 U/L (12-78); Albumin Globulin Ratio 0.6 (0.9-2); Alkaline Phosphatase 537 U/L (45-117); Aspartate Aminotransferase 56 U/L (15-37); BUN Creatinine Ratio 9.8 (10-20); Bilirubin,Total 1.6 mg/dl (0.2-1); Blood Urea Nitrogen 48 mg/dl (7-18); Calcium 9.2 mg/dl (8.5-10.1); Carbon Dioxide 25 mmol/L (21-32); Chloride 95 mmol/L (98-107); Creatinine Clr Calc Pharmacy 10.2 ml/min; Est GFR (African American) 8.9 ml/min; Est GFR (Non-African American) 7.7 ml/min; Globulin 4.6 gm/dl (2.5-4.0); Glucose 135 mg/dl (70-99); Potassium 5.5 mmol/L (3.5-5.1); Sodium 129 mmol/L (136-145); Total Protein 7.6 gm/dl (6.4-8.2); Troponin I < 0.015 ng/ml (0-0.045)
[2021-04-08 09:08] LABS: INR 1.3 (0.9-1.1); Partial Thromboplastin Ratio 1.1; Partial Thromboplastin Time 29.6 Seconds (21.0-31.0); Prothrombin Time 13.2 Seconds (9.0-12.0)
--- NOTE | 2021-04-08 09:19 | XRay Report ---
XR chest 1V portable HISTORY: 80 years-old Female Dysrhythmia COMPARISON: Chest radiograph 09/23/2020 TECHNIQUE: Portable AP view of the chest FINDINGS: Cardiac silhouette is enlarged. No pneumothorax. Pulmonary vascular congestion with interstitial coar sening. Trace left with chronic moderate right pleural effusion. Right greater the and left bibasilar consolidation. Degenerative changes of the shoulders and spine. ORIF hardware of the left proximal h umerus with healed chronic fracture deformity. IMPRESSION: 1. Cardiomegaly with pulmonary vascular congestion. 2. Unchanged moderate right pleural effusion with right greater than left bibasilar consolidation. ACT 112: Negative or not required by law. The above report was generated using voice recognition software. It may contain grammatical, syntax o r spelling errors. Electronically signed by: Kaushal Henry M.D. 04/08/2021 9:17 AM
[2021-04-08 09:22] LABS: iSTAT Arterial Blood Gas HCO3 30 meg/L (19-24); iSTAT Arterial Blood Gas pCO2 50 mmHg (35-46); iSTAT Arterial Blood Gas pO2 37 mmHg (80-95); iSTAT Carbon Dioxide 32 mmol/L (24-31); iSTAT Hematocrit 33 % (37-47); iSTAT Hemoglobin 11.2 g/dl (12.0-16.0); iSTAT Potassium 5.8 mmol/L (3.3-5.0); iSTAT Sodium 131 mmol/L (135-144)
--- NOTE | 2021-04-08 10:06 | CT Scan Report ---
CT SCAN OF THE BRAIN WITHOUT IV CONTRAST CLINICAL HISTORY: Change in mental status. Bradycardia. COMPARISON STUDY: CT of the brain dated 09/23/2020. TECHNIQUE: Unenhanced axial CT scan of the brain is performed from the vertex to the skull base. A do se lowering technique was utilized adhering to the principles of ALARA. The examination is degraded b y motion artifact. CT DOSE: 1302.24 mGy.cm FINDINGS: Brain parenchyma: There are age-related involutional changes noting moderate subcortical and periven tricular microangiopathic change. There is no hemorrhage, mass effect, or evidence of acute territori al ischemia by CT criteria. A chronic lacunar infarct is noted in the left thalamus. Daniel-white matte r differentiation is preserved. No extra-axial fluid collection is seen. Ventricles, sulci, cisterns: Prominent secondary to involutional change. Intracranial vasculature: There is atherosclerotic calcification of the cavernous carotid and vertebr al arteries. Calvarium: Unremarkable. Sinuses and mastoids: The visualized paranasal sinuses are clear. The mastoid air cells are well pneu matized. Orbits: The bony orbits are grossly intact. There are bilateral ocular lens implants. IMPRESSION: There is no hemorrhage, mass effect, or evidence of acute territorial ischemia by CT crit lyn noting a motion compromise examination. ACT 112: Negative or not required by law. Electronically signed by: Lenin Cohen M.D. 04/08/2021 10:05 AM
[2021-04-08] MEDS ORDERED: STAT IV Infusion **Titration per Protocol STA (10:11)
[2021-04-08] MEDS ORDERED: NOREPINEPHRINE/D5W 8 MG/508 ML BAG IV SCH (10:15)
--- NOTE | 2021-04-08 10:52 | History & Physical Report ---
Date of Service April 08, 2021 Assessment & Plan (1) Volume overload: (2) Hypotension: (3) Acute respiratory failure with hypoxia: Plan: Suspect due to #1 - COVID negative (4) Pleural effusion on right: Plan: Chronic issue (5) Systolic and diastolic CHF w/reduced LV function, NYHA class 4: (6) Hyperlipidemia: (7) Peripheral neuropathy: (8) Hypothyroidism: (9) Diabetes mellitus type 2, insulin dependent: (10) Non-ischemic cardiomyopathy: Plan: Discussed case with ED physician and nephrology. ED spoke with critical care. Pressors being started in the ED to stabilize BP in anticipation of HD later today to address fluid overload. Appreciate all consultants input. - PICC line being placed in ED for access - Continue pressors to maintain BP - Plan for HD in the ICU later today - BiPAP for respiratory support for now - Follow labs closely - Continue home meds as appropriate History of Present Illness Chief Complaint: Syncope Primary Care Provider: [facility] This is an 80 y/o wheelchair-bound female with a hx of ESRD on HD (M/W/F), insulin-requiring DM, HTN, GERD, non-obstructive CAD, PAFib (no AC), hx breast CA s/p partial mastectomy, diastolic dysfunction, chronic HFrED, pulmonary HTN, dyslipidemia, and hypothyroidism who presents from SNF where she had a syncopal episode as they were preparing to start dialysis this morning. History from the pt is limited as she is currently on BiPAP, but the chart was extensively reviewed including notes from EMS and additional history from the ED physician. This morning, she apparently passed out as they were preparing to start HD - EMS was called and initial HR was in the 30s per report. She was also hypoxic and required a NRB to maintain sats. They were planning to attempt pacing so the pt was given Versed x 1 dose for sedation, but then pacing was deferred as they were unable to capture and her rate improved to the 70s. Initially, in the ED, she seemed to be stabilizing but then her respiratory status worsened and she was placed on BiPAP. BPs dropped into the 80s systolic and imaging was consistent with marked fluid overload. Nephrology was consulted and recommended HD once stabilize BP with pressors. Allergies Allergy/AdvReac Type Severity Reaction Status Date / Time fish derived Allergy Severe Anaphylaxis Verified 04/08/21 08:42 alcohol Allergy Intermediate bumps on Verified 04/08/21 08:42 skin with alcohol wipes Aminoglycosides Allergy Intermediate Rash Verified 04/08/21 08:42 polymyxin B Allergy Intermediate Rash Verified 04/08/21 08:42 neomycin Allergy Mild Rash Verified 04/08/21 08:42 iodine Allergy Unknown Unknown Verified 04/08/21 08:42 promethazine Allergy Unknown Unknown Verified 04/08/21 08:42 aminophylline Allergy Unknown Verified 04/08/21 08:42 nystatin Allergy Unknown Verified 04/08/21 08:42 adhesive AdvReac Mild bumps on Verified 04/08/21 08:42 skin with "tape" Home Medications Medication Instructions Recorded Confirmed Type acetaminophen 325 mg tablet 650 mg PO Q6 PRN 09/23/20 09/23/20 History (Tylenol) atorvastatin 10 mg tablet (Lipitor) 10 mg PO HS 09/23/20 04/08/21 History calcium carbonate 500 mg calcium 1,000 mg PO Q8 PRN 09/23/20 09/23/20 History (1,250 mg) tablet gabapentin 100 mg capsule 100 mg PO AMHS 09/23/20 04/08/21 History insulin human U-100 NPH-regulr 10 unit SUBCUT BID 09/23/20 04/08/21 History 70-30 mix 100 unit/mL subcutaneous susp (Humulin 70/30 U-100 Insulin) levothyroxine 75 mcg tablet 75 mcg PO DAILY 09/23/20 04/08/21 History lisinopril 2.5 mg tablet 2.5 mg PO HS 09/23/20 04/08/21 History loratadine 5 mg chewable tablet 5 mg PO DAILY 09/23/20 04/08/21 History melatonin 5 mg tablet 10 mg PO HS PRN 09/23/20 04/08/21 History menthol 0.44 %-zinc oxide 20.6 % 1 applic TOPICAL QS 09/23/20 09/23/20 History topical ointment (Calmoseptine) metoprolol tartrate 37.5 mg tablet 37.5 mg PO DAILY 09/23/20 04/08/21 History montelukast 10 mg tablet 10 mg PO DAILY 09/23/20 04/08/21 History multivitamin with minerals 1 tab PO DAILY 09/23/20 04/08/21 History pantoprazole 40 mg tablet,delayed 40 mg PO DAILY 09/23/20 04/08/21 History release torsemide 20 mg tablet 80 mg PO .TUTHSASU 09/23/20 04/08/21 History bisacodyl 10 mg rectal suppository 10 mg AR DAILY PRN 04/08/21 04/08/21 History (Dulcolax (bisacodyl)) chlorpheniramine-dextromethorphan 10 ml PO Q6H PRN 04/08/21 04/08/21 History 1 mg-7.5 mg/5 mL oral liquid (Robitussin Long-Acting) menthol 5 mg lozenges (Cough Drops) 1 mg PO Q2H PRN 04/08/21 04/08/21 History Past Med/Surg History Medical History Acute on chronic systolic CHF (congestive heart failure) Anemia Breast cancer s/p radiation CAD (coronary artery disease) mild, non-obstructive per 06/2018 cardiac cath Cardiorenal syndrome Chronic back pain Diabetes mellitus type 2, insulin dependent ESRD (end stage renal disease) on dialysis GERD (gastroesophageal reflux disease) controlled Hemothorax after procedure History of DVT (deep vein thrombosis) LUE Hyperlipidemia Hypothyroidism LBBB (left bundle branch block) chronic dating back to at least 2007 per prior [facility] EKG's Morbid obesity Nausea and vomiting Non-ischemic cardiomyopathy Osteoarthritis Peripheral neuropathy Pleural effusion on right Systolic and diastolic CHF w/reduced LV function, NYHA class 4 Volume overload Surgical History AVF (arteriovenous fistula) LEFT ARM History of appendectomy History of cardiac cath 06/2018: Mild, non-obstructive CAD/no culprit lesions identified to explain symptoms or abnormal stress test History of cataract surgery Hx of lumpectomy Right breast S/P aneurysm repair 05/[address] Deutsch Family History Father Diabetes Other Allergies Heart disease Social History Smoking Status: Unknown if ever smoked Tobacco Type: Cigarettes Second Hand Exposure: No; Hx Alcohol Use: No Hx Substance Use: No Preferred Language: Beninese Communication Ability: Effective Visual Impairment: No Limitations Hearing Ability: Hard of Hearing Business Center Attendant Required: No Beliefs That Will Affect Care: None marital status: Current Living Situation: [facility] Other Information That Helps Us Care for You: No Feels Safe at Home: Yes Assistive Devices: BiPap and Oxygen - Continuous Review of Systems Review of Systems: Other Limited due to BiPAP - see HPI Physical Exam Constitutional: + ill appearing and + obese appears anxious and uncomfortab le Eyes: + anicteric sclerae ENMT: BiPAP mask in place Results & Data Results & Data ([facility]) Vital Signs (Past 12 Hours) Vital Signs Temp Pulse Pulse Resp BP BP BP 04/08/21 10:31 65 20 143/112 H 04/08/21 10:07 54 L 20 93/56 L 04/08/21 09:42 57 L 20 89/44 L 04/08/21 09:34 96/41 L 04/08/21 09:31 04/08/21 09:29 04/08/21 09:25 61 58 L 20 04/08/21 09:24 04/08/21 09:05 45 L 25 H 04/08/21 08:55 46 L 26 H 04/08/21 08:32 04/08/21 08:26 36.7 C 04/08/21 08:10 68 25 H 127/79 BP BP Pulse Ox 04/08/21 10:31 100 04/08/21 10:07 100 04/08/21 09:42 100 04/08/21 09:34 04/08/21 09:31 83/41 L 04/08/21 09:29 78/47 L 04/08/21 09:25 88/55 L 100 04/08/21 09:24 88/55 L 04/08/21 09:05 125/75 93 04/08/21 08:55 94 04/08/21 08:32 100 04/08/21 08:26 04/08/21 08:10 100 Laboratory Results Laboratory Results - last 24 hr 04/08/21 04/08/21 04/08/21 08:10 08:19 08:30 WBC 7.23 RBC 3.15 L Hgb 10.8 L POC Hgb 11.2 L Hct 34.1 L POC Hct 33 L MCV 108.3 H MCH 34.3 H MCHC 31.7 L RDW Std Deviation 58.2 H RDW Coeff of Archana 14.8 H Plt Count 182 MPV 10.6 H Immature Gran % (Auto) 0.3 Neut % (Auto) 51.6 Lymph % (Auto) 32.2 [place] % (Auto) 12.2 Eos % (Auto) 3.0 Baso % (Auto) 0.7 Neut # (Auto) 3.73 Lymph # (Auto) 2.33 [place] # (Auto) 0.88 H Eos # (Auto) 0.22 Baso # (Auto) 0.05 Immature Gran # (Auto) 0.02 PT INR APTT PTT Ratio POC pH 7.40 POC pCO2 50 H POC pO2 37 L POC HCO3 30 H POC Total CO2 32 H POC Base Excess 5.0 H POC ABG O2 Sat 69.0 L POC Sodium 131 L Sodium 129 L POC Potassium 5.8 H Potassium 5.5 H Chloride 95 L Carbon Dioxide 25 Anion Gap 9.0 BUN 48 H Creatinine 4.89 H* Est Cr Clr Drug Dosing 10.2 Est GFR ( Amer) 8.9 Est GFR (Non-Af Amer) 7.7 BUN/Creatinine Ratio 9.8 L Glucose 135 H Calcium 9.2 Magnesium 2.0 Total Bilirubin 1.6 H AST 56 H ALT 50 Alkaline Phosphatase 537 H Troponin I < 0.015 Total Protein 7.6 Albumin 3.0 L Globulin 4.6 H Albumin/Globulin Ratio 0.6 L TSH 3.900 COVID-19 Eval Order SARS-CoV-2 (PCR) SARS-CoV-2 RNA (MALIHA) SARS-CoV-2 Comment 04/08/21 04/08/21 04/08/21 08:30 08:35 08:35 WBC RBC Hgb POC Hgb Hct POC Hct MCV MCH MCHC RDW Std Deviation RDW Coeff of Archana Plt Count MPV Immature Gran % (Auto) Neut % (Auto) Lymph % (Auto) [place] % (Auto) Eos % (Auto) Baso % (Auto) Neut # (Auto) Lymph # (Auto) [place] # (Auto) Eos # (Auto) Baso # (Auto) Immature Gran # (Auto) PT 13.2 H INR 1.3 H APTT 29.6 PTT Ratio 1.1 POC pH POC pCO2 POC pO2 POC HCO3 POC Total CO2 POC Base Excess POC ABG O2 Sat POC Sodium Sodium POC Potassium Potassium Chloride Carbon Dioxide Anion Gap BUN Creatinine Est Cr Clr Drug Dosing Est GFR ( Amer) Est GFR (Non-Af Amer) BUN/Creatinine Ratio Glucose Calcium Magnesium Total Bilirubin AST ALT Alkaline Phosphatase Troponin I Total Protein Albumin Globulin Albumin/Globulin Ratio TSH COVID-19 Eval Order Covid19 at [facility] SARS-CoV-2 (PCR) SARS-CoV-2 RNA (MALIHA) Cancelled SARS-CoV-2 Comment Cancelled 04/08/21 04/08/21 08:35 08:35 WBC RBC Hgb POC Hgb Hct POC Hct MCV MCH MCHC RDW Std Deviation RDW Coeff of Archana Plt Count MPV Immature Gran % (Auto) Neut % (Auto) Lymph % (Auto) [place] % (Auto) Eos % (Auto) Baso % (Auto) Neut # (Auto) Lymph # (Auto) [place] # (Auto) Eos # (Auto) Baso # (Auto) Immature Gran # (Auto) PT INR APTT PTT Ratio POC pH POC pCO2 POC pO2 POC HCO3 POC Total CO2 POC Base Excess POC ABG O2 Sat POC Sodium Sodium POC Potassium Potassium Chloride Carbon Dioxide Anion Gap BUN Creatinine Est Cr Clr Drug Dosing Est GFR ( Amer) Est GFR (Non-Af Amer) BUN/Creatinine Ratio Glucose Calcium Magnesium Total Bilirubin AST ALT Alkaline Phosphatase Troponin I Total Protein Albumin Globulin Albumin/Globulin Ratio TSH COVID-19 Eval Order SARS-CoV-2 (PCR) NEGATIVE Cancelled SARS-CoV-2 RNA (MALIHA) SARS-CoV-2 Comment Medications Administered Norepinephrine Bitartrate (Levophed/D5w) 8 mg in 508 mls @ 18.364 mls/hr IV .Q24H [facility]; Protocol Stop: 05/08/21 10:14 Last Admin: 04/08/21 10:21 Dose: 0.05 mcg/kg/min, 18.4 mls/hr Documented by: [id number] Cosigned by: [id number] Code Status & VTE Plan VTE Prophylaxis Plan VTE Prophylaxis will be ordered: Yes Supervising Physician Co-Signing Physician Notes Attending addendum The patient was seen and examined in ICU She is an 80-year-old female with significant past medical history of end-stage renal disease on hemodialysis, insulin requiring diabetes, combined congestive heart failure and other comorbid conditions as mentioned in H&P apparently was sent in from [facility] with a syncopal episode. She was noted to have acute respiratory failure secondary to volume overload with hypotension. She has been started with pressor resents and now hemodialysis is going on Feels a little better in ICU On examination Has been on BiPAP and is stable on hemodialysis Hemodynamically stable with blood pressure of 115/64 on pressor resents Chest-decreased breath sounds with bibasilar crackles Heart -S1-S2 Abdomen-benign Extremities1+ edema bilaterally Her admission labs, EKG and imaging studies reviewed Fluid overload with end-stage renal disease on hemodialysis and is complicated by combined congestive heart failure with hypotension Has been on norepinephrine and antibiotics for possible left lower lobe infiltration and on hemodialysis Appreciate fur cleaner and nephrology input and recommendation Agree with assessment and plan as outlined above by BHARTI Chew Dr (1) Hyperlipidemia Hyperlipidemia type: unspecified Qualified Code(s): E78.5 - Hyperlipidemia, unspecified (2) Hypothyroidism Hypothyroidism type: acquired Qualified Code(s): E03.9 - Hypothyroidism, unspecified (3) Volume overload Hypervolemia type: other Qualified Code(s): E87.79 - Other fluid overload
--- NOTE | 2021-04-08 11:22 | Electrocardiogram Report ---
Test Reason : Blood Pressure : / mmHG Vent. Rate : 085 BPM Atrial Rate : 085 BPM P-R Int : 202 ms QRS Dur : 130 ms QT Int : 408 ms P-R-T Axes : 026 146 161 degrees QTc Int : 485 ms Sinus rhythm Right axis deviation Non-specific intra-ventricular conduction block Abnormal ECG When compared with ECG of 23-SEP-2020 13:44, Borderline criteria for Anterior infarct are no longer Present Borderline criteria for Anterolateral infarct are no longer Present Nonspecific T wave abnormality, improved in Inferior leads Confirmed by Hernandez Fine ([id number]) on 04/08/2021 11:22:00 AM Referred By: [facility] Confirmed By:Yaakov Fine
--- NOTE | 2021-04-08 11:23 | Electrocardiogram Report ---
Test Reason : Blood Pressure : / mmHG Vent. Rate : 047 BPM Atrial Rate : 047 BPM P-R Int : 176 ms QRS Dur : 124 ms QT Int : 528 ms P-R-T Axes : 054 129 162 degrees QTc Int : 467 ms Sinus bradycardia with marked sinus arrhythmia Non-specific intra-ventricular conduction delay Abnormal ECG When compared with ECG of 08-APR-2021 08:10, (unconfirmed) Vent. rate has decreased BY 38 BPM Inverted T waves have replaced nonspecific T wave abnormality in Lateral leads Confirmed by Hernandez Fine ([id number]) on 04/08/2021 11:22:52 AM Referred By: [facility] Confirmed By:Yaakov Fine
[2021-04-08] MEDS ORDERED: ICU PROTOCOL FOR HYPERGLYCEMIA PRN (12:02)
--- NOTE | 2021-04-08 12:14 | XRay Report ---
SINGLE VIEW CHEST CLINICAL HISTORY: PICC placement. FINDINGS: An AP, portable, upright chest radiograph is compared to study performed earlier the same d ay 04/08/2021 and correlated with chest CT dated 08/15/2020. The examination is degraded by portable te chnique and patient rotation. A right PICC line has been placed. The tip projects over the cavoatri al junction. The heart is enlarged. There is pulmonary vascular congestion. There is a right pleural effusion with consolidation of the right lower lung. Moderate consolidation is seen at the left lung base. No pneumothorax is identified. The skeletal structures are osteopenic. There is chronic posttra umatic deformity and postoperative change seen in the left proximal humerus. IMPRESSION: 1. A right-sided PICC line is been placed as above. 2. Cardiomegaly with evidence of congestive failure. 3. Moderate right pleural effusion with associated consolidation of the right lower lung. Correlate c linically for evidence of superimposed pneumonia. 4. Mild consolidation is also seen at the left lung base. ACT 112: Negative or not required by law. Electronically signed by: Lenin Cohen M.D. 04/08/2021 12:12 PM
[2021-04-08] MEDS ORDERED: SODIUM CHLORIDE 0.9% 1000ML 1,000 ML IV PRN (13:59)
[2021-04-08] MEDS ORDERED: HEPARIN SOD (PORCINE) 1000 UNIT/ML IV ONE (13:59)
[2021-04-08] MEDS: DOXYCYCLINE HYCLATE 100 MG in DEXTROSE 5% 100 ML IV SCH (14:08)
[2021-04-08] MEDS: cefTRIAXone SODIUM 2,000 MG in DEXTROSE 5% 50 ML IV SCH (14:08)
--- NOTE | 2021-04-08 14:11 | Critical Care Consultation ---
Date of Consultation April 08, 2021 Assessment & Plan (1) Hypotension: (2) Pleural effusion: (3) Hypoxemia: (4) CHF (congestive heart failure): (5) ESRD (end stage renal disease) on dialysis: Chest x-ray 04/08/2021 personally reviewed: Portable film, fair inspiratory effort, bilateral costophrenic angle are blunted, right-sided pleural effusion PICC line in place Increased cardiac silhouette --Acute hypoxic respiratory failure Likely secondary to fluid overload with systolic CHF COVID-19 PCR negative Procalcitonin 0.19 Nasal MRSA negative --Right-sided pleural effusion S/p thoracentesis 07/27/2020 1400ml removed. Cultures were negative Seem to be transudative No indication for thoracentesis. Continue with hemodialysis --Syncopal episode prior to presentation likely from hypotension Etiology is unclear, sepsis cannot be ruled out Continue with broad-spectrum antibiotics Continue with vasopressor support to keep MAP greater than 65 --End-stage renal disease On hemodialysis --Hyperkalemia Likely from missed dialysis For hemodialysis later today --Diabetes type 2 With ICU hypoglycemia protocol --Morbid obesity with possible NOE Continue with BiPAP nightly and as needed shortness of breath --Dyslipidemia Continue with atorvastatin --Hypothyroidism Continue with levothyroxine TSH 3.9 --DNI --Prophylaxis VTE: Heparin GI: Protonix Lines: Right arm PICC Diet: Cardiorenal diet Plan: Follow-up nasal MRSA Follow-up procalcitonin The patient Rocephin and doxycycline for possible right lower lobe pneumonia Try to wean off Levophed as possible Patient is supposed to get hemodialysis I did discuss the patient regarding intubation if need be in future. Patient states that she is 80 years old and would not like any intubation even if it is a question of life and I discussed the case with Dr. Bradley I have personally spent 53 minutes of critical care time in the direct management of this patient. This is a life/limb threatening event. This includes time spent evaluating patient, direct bedside care, chart review, placing orders, interpretation of diagnostic studies, discussion with consultants, patient, and family members, as well as other required patient management activities. This time is exclusive of all separately billable procedures, and teaching time and separate from and in addition to any other critical care service time. Please note the above document was generated using voice recognition software. It may contain grammatical, syntax or spelling errors. History of Present Illness Attending Physician: Italia Bradley MD History of Present Illness 80-year-old female past medical history of end-stage renal disease on hemodialysis Tuesday, diabetes type 2 on insulin, paroxysmal A. fib on anticoagulation, history of breast CA s/p partial mastectomy, systolic CHF present to the hospital from assisted as she had a syncopal episode while they were preparing to dialyze her. In the ED patient was hypotensive and respiratory was on the higher side. Patient was put on BiPAP and they put a PICC line in to start her on low-dose vasopressors Patient was sent to the ICU with right arm PICC and on BiPAP At the time of examination patient was on BiPAP 05/10 40% saturating 100% I went down to 35% she was desaturating to percent Patient is hard to hear but she was answering all the questions appropriately Denies any headache, no fever or chills Does not make significant urine Denies any abdominal pain Does complain of diarrhea which has been going on for on and off for a long time No cough, no chest pain. Allergies Allergy/AdvReac Type Severity Reaction Status Date / Time fish derived Allergy Severe Anaphylaxis Verified 04/08/21 08:42 alcohol Allergy Intermediate bumps on Verified 04/08/21 08:42 skin with alcohol wipes Aminoglycosides Allergy Intermediate Rash Verified 04/08/21 08:42 polymyxin B Allergy Intermediate Rash Verified 04/08/21 08:42 neomycin Allergy Mild Rash Verified 04/08/21 08:42 iodine Allergy Unknown Unknown Verified 04/08/21 08:42 promethazine Allergy Unknown Unknown Verified 04/08/21 08:42 aminophylline Allergy Unknown Verified 04/08/21 08:42 nystatin Allergy Unknown Verified 04/08/21 08:42 adhesive AdvReac Mild bumps on Verified 04/08/21 08:42 skin with "tape" Home Medications Medication Instructions Recorded Confirmed Type acetaminophen 325 mg tablet 650 mg PO Q6 PRN 09/23/20 09/23/20 History (Tylenol) atorvastatin 10 mg tablet (Lipitor) 10 mg PO HS 09/23/20 04/08/21 History calcium carbonate 500 mg calcium 1,000 mg PO Q8 PRN 09/23/20 09/23/20 History (1,250 mg) tablet gabapentin 100 mg capsule 100 mg PO AMHS 09/23/20 04/08/21 History insulin human U-100 NPH-regulr 10 unit SUBCUT BID 09/23/20 04/08/21 History 70-30 mix 100 unit/mL subcutaneous susp (Humulin 70/30 U-100 Insulin) levothyroxine 75 mcg tablet 75 mcg PO DAILY 09/23/20 04/08/21 History lisinopril 2.5 mg tablet 2.5 mg PO HS 09/23/20 04/08/21 History loratadine 5 mg chewable tablet 5 mg PO DAILY 09/23/20 04/08/21 History melatonin 5 mg tablet 10 mg PO HS PRN 09/23/20 04/08/21 History menthol 0.44 %-zinc oxide 20.6 % 1 applic TOPICAL QS 09/23/20 09/23/20 History topical ointment (Calmoseptine) metoprolol tartrate 37.5 mg tablet 37.5 mg PO DAILY 09/23/20 04/08/21 History montelukast 10 mg tablet 10 mg PO DAILY 09/23/20 04/08/21 History multivitamin with minerals 1 tab PO DAILY 09/23/20 04/08/21 History pantoprazole 40 mg tablet,delayed 40 mg PO DAILY 09/23/20 04/08/21 History release torsemide 20 mg tablet 80 mg PO .TUTHSASU 09/23/20 04/08/21 History bisacodyl 10 mg rectal suppository 10 mg ME DAILY PRN 04/08/21 04/08/21 History (Dulcolax (bisacodyl)) chlorpheniramine-dextromethorphan 10 ml PO Q6H PRN 04/08/21 04/08/21 History 1 mg-7.5 mg/5 mL oral liquid (Robitussin Long-Acting) menthol 5 mg lozenges (Cough Drops) 1 mg PO Q2H PRN 04/08/21 04/08/21 History Patient History Medical History Acute on chronic systolic CHF (congestive heart failure) Anemia Breast cancer s/p radiation CAD (coronary artery disease) mild, non-obstructive per 06/2018 cardiac cath Cardiorenal syndrome Chronic back pain Diabetes mellitus type 2, insulin dependent ESRD (end stage renal disease) on dialysis GERD (gastroesophageal reflux disease) controlled Hemothorax after procedure History of DVT (deep vein thrombosis) LUE Hyperlipidemia Hypothyroidism LBBB (left bundle branch block) chronic dating back to at least 2007 per prior [facility] EKG's Morbid obesity Nausea and vomiting Non-ischemic cardiomyopathy Osteoarthritis Peripheral neuropathy Pleural effusion on right Systolic and diastolic CHF w/reduced LV function, NYHA class 4 Volume overload Surgical History AVF (arteriovenous fistula) LEFT ARM History of appendectomy History of cardiac cath 06/2018: Mild, non-obstructive CAD/no culprit lesions identified to explain symptoms or abnormal stress test History of cataract surgery Hx of lumpectomy Right breast S/P aneurysm repair 05/2019 AV fistula QUENTIN Deutsch Family History Father Diabetes Other Allergies Heart disease Social History Smoking Status: Unknown if ever smoked Tobacco Type: Cigarettes Second Hand Exposure: No; Hx Alcohol Use: No Hx Substance Use: No Preferred Language: Tongan Communication Ability: Effective Visual Impairment: No Limitations Hearing Ability: Hard of Hearing Property Master Required: No Beliefs That Will Affect Care: None marital status: Current Living Situation: Snf Other Information That Helps Us Care for You: No Feels Safe at Home: Yes Assistive Devices: BiPap and Oxygen - Continuous Review of Systems Review of Systems: All systems reviewed & are unremarkable except as noted in HPI & below Physical Exam Physical Exam: Constitutional: No acute distress HEENT: EOMI, PERRLA, hard to hear Respiratory system: Decreased air entry bilaterally, more decreased on the right, no wheeze, rhonchi, positive crackles bilateral lower lobes CVS: S1-S2 positive, no murmurs or gallops, distant heart sounds Abdomen: Soft, nontender, nondistended, positive bowel sounds x4, obese Extremities: +2 pulses bilaterally radialis/ dorsalis pedis, no cyanosis, +1 pitting edema bilateral lower extremity Neuro: Awake alert oriented x3 Psych: Normal mood and affect G/U: No Fish Skin: no rashes, warm and dry Lymphatic: no cervical or axillary lymphadenopathy Results & Data Results & Data ([facility]) Vital Signs (Past 12 Hours) Vital Signs Temp Pulse Pulse Resp BP BP BP 04/08/21 13:25 99/66 L 04/08/21 13:02 36.7 C 72 18 116/87 04/08/21 12:57 116/87 04/08/21 12:18 73 26 H 04/08/21 12:11 36.8 C 74 26 H 122/82 04/08/21 11:22 76 18 114/84 04/08/21 11:12 67 22 04/08/21 10:31 65 20 143/112 H 04/08/21 10:07 54 L 20 93/56 L 04/08/21 09:42 57 L 20 89/44 L 04/08/21 09:34 96/41 L 04/08/21 09:31 04/08/21 09:29 04/08/21 09:25 61 58 L 20 04/08/21 09:24 04/08/21 09:05 45 L 25 H 04/08/21 08:55 46 L 26 H 04/08/21 08:32 04/08/21 08:26 36.7 C 04/08/21 08:10 68 25 H 127/79 BP BP Pulse Ox 04/08/21 13:25 04/08/21 13:02 96 04/08/21 12:57 04/08/21 12:18 99 04/08/21 12:11 99 04/08/21 11:22 04/08/21 11:12 96 04/08/21 10:31 100 04/08/21 10:07 100 04/08/21 09:42 100 04/08/21 09:34 04/08/21 09:31 83/41 L 04/08/21 09:29 78/47 L 04/08/21 09:25 88/55 L 100 04/08/21 09:24 88/55 L 04/08/21 09:05 125/75 93 04/08/21 08:55 94 04/08/21 08:32 100 04/08/21 08:26 04/08/21 08:10 100 04/08/21 08:30 04/08/21 08:10 Coding Level of Care Code Critical Care 1st 30-74 mins Diagnoses Hypotension I95.9 Pleural effusion J90 Hypoxemia R09.02 CHF (congestive heart failure) I50.9 Heart failure chronicity: acute on chronic Heart failure type: unspecified ESRD (end stage renal disease) on dialysis N18.6; Z99.2 Time Spent (min) 53 (1) CHF (congestive heart failure) Heart failure chronicity: acute on chronic Heart failure type: unspecified Qualified Code(s): I50.9 - Heart failure, unspecified
--- NOTE | 2021-04-08 14:40 | Emergency Department Note ---
Impression & Plan Respiratory failure, acute, CHF (congestive heart failure), End stage renal disease on dialysis, Pleural effusion due to CHF (congestive heart failure), Symptomatic sinus bradycardia, Hypotension Past Med/Surg History Medical History Acute on chronic systolic CHF (congestive heart failure) Anemia Breast cancer s/p radiation CAD (coronary artery disease) mild, non-obstructive per 06/2018 cardiac cath Cardiorenal syndrome Chronic back pain Diabetes mellitus type 2, insulin dependent ESRD (end stage renal disease) on dialysis GERD (gastroesophageal reflux disease) controlled Hemothorax after procedure History of DVT (deep vein thrombosis) LUE Hyperlipidemia Hypothyroidism LBBB (left bundle branch block) chronic dating back to at least 2007 per prior [facility] EKG's Morbid obesity Nausea and vomiting Non-ischemic cardiomyopathy Osteoarthritis Peripheral neuropathy Pleural effusion on right Systolic and diastolic CHF w/reduced LV function, NYHA class 4 Volume overload Surgical History AVF (arteriovenous fistula) LEFT ARM History of appendectomy History of cardiac cath 06/2018: Mild, non-obstructive CAD/no culprit lesions identified to explain symptoms or abnormal stress test History of cataract surgery Hx of lumpectomy Right breast S/P aneurysm repair 05/2019 AV fistula QUENTIN Deutsch Family History Father Diabetes Other Allergies Heart disease Social History Smoking Status: Unknown if ever smoked Tobacco Type: Cigarettes Second Hand Exposure: No; Hx Alcohol Use: No Hx Substance Use: No Preferred Language: Setswana Communication Ability: Effective Visual Impairment: No Limitations Hearing Ability: Hard of Hearing 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 Beliefs That Will Affect Care: None marital status: Current Living Situation: Alf Other Information That Helps Us Care for You: No Feels Safe at Home: Yes Assistive Devices: BiPap and Oxygen - Continuous Allergies Allergies Allergy/AdvReac Type Severity Reaction Status Date / Time fish derived Allergy Severe Anaphylaxis Verified 04/08/21 08:42 alcohol Allergy Intermediate bumps on Verified 04/08/21 08:42 skin with alcohol wipes Aminoglycosides Allergy Intermediate Rash Verified 04/08/21 08:42 polymyxin B Allergy Intermediate Rash Verified 04/08/21 08:42 neomycin Allergy Mild Rash Verified 04/08/21 08:42 iodine Allergy Unknown Unknown Verified 04/08/21 08:42 promethazine Allergy Unknown Unknown Verified 04/08/21 08:42 aminophylline Allergy Unknown Verified 04/08/21 08:42 nystatin Allergy Unknown Verified 04/08/21 08:42 adhesive AdvReac Mild bumps on Verified 04/08/21 08:42 skin with "tape" Home Meds Home Medications Medication Instructions Recorded Confirmed acetaminophen 325 mg tablet 650 mg PO Q6 PRN 09/23/20 09/23/20 (Tylenol) atorvastatin 10 mg tablet (Lipitor) 10 mg PO HS 09/23/20 04/08/21 calcium carbonate 500 mg calcium 1,000 mg PO Q8 PRN 09/23/20 09/23/20 (1,250 mg) tablet gabapentin 100 mg capsule 100 mg PO AMHS 09/23/20 04/08/21 insulin human U-100 NPH-regulr 10 unit SUBCUT BID 09/23/20 04/08/21 70-30 mix 100 unit/mL subcutaneous susp (Humulin 70/30 U-100 Insulin) levothyroxine 75 mcg tablet 75 mcg PO DAILY 09/23/20 04/08/21 lisinopril 2.5 mg tablet 2.5 mg PO HS 09/23/20 04/08/21 loratadine 5 mg chewable tablet 5 mg PO DAILY 09/23/20 04/08/21 melatonin 5 mg tablet 10 mg PO HS PRN 09/23/20 04/08/21 menthol 0.44 %-zinc oxide 20.6 % 1 applic TOPICAL QS 09/23/20 09/23/20 topical ointment (Calmoseptine) metoprolol tartrate 37.5 mg tablet 37.5 mg PO DAILY 09/23/20 04/08/21 montelukast 10 mg tablet 10 mg PO DAILY 09/23/20 04/08/21 multivitamin with minerals 1 tab PO DAILY 09/23/20 04/08/21 pantoprazole 40 mg tablet,delayed 40 mg PO DAILY 09/23/20 04/08/21 release torsemide 20 mg tablet 80 mg PO .TUTHSASU 09/23/20 04/08/21 bisacodyl 10 mg rectal suppository 10 mg MT DAILY PRN 04/08/21 04/08/21 (Dulcolax (bisacodyl)) chlorpheniramine-dextromethorphan 10 ml PO Q6H PRN 04/08/21 04/08/21 1 mg-7.5 mg/5 mL oral liquid (Robitussin Long-Acting) menthol 5 mg lozenges (Cough Drops) 1 mg PO Q2H PRN 04/08/21 04/08/21 Results & Data (ED) Vital Signs Vital Signs - 24 hr 04/08/21 08:10 04/08/21 08:26 04/08/21 08:32 Temperature 36.7 C Temperature Source Temporal Artery Scan Pulse Rate 68 Pulse Rate [Apical] Pulse Rhythm [Apical] Respiratory Rate 25 H Respiratory Effort / Characteristics Short of Breath Respiratory Depth Respiratory Pattern Blood Pressure 127/79 Blood Pressure [Right Arm] Blood Pressure [Right Radial Artery] Blood Pressure [Right Thigh] Blood Pressure Mean 95 Blood Pressure Mean [Right Arm] Blood Pressure Mean [Right Radial Artery] Blood Pressure Mean [Right Thigh] Pulse Oximetry 100 100 Oxygen Delivery Method Non-rebreather Nasal Cannula Oxygen Flow Rate 15 4 Fraction of Inspired Oxygen SaO2/FiO2 Ratio Sepsis Recent Fever Within 48 Hours No Sepsis New/Unexplained Change in Mental Status No Sepsis Action Taken by Nursing No Action Required 04/08/21 08:55 04/08/21 09:05 04/08/21 09:24 Temperature Temperature Source Pulse Rate Pulse Rate [Apical] 46 L 45 L Pulse Rhythm [Apical] Regular Respiratory Rate 26 H 25 H Respiratory Effort / Characteristics Short of Breath Short of Breath Respiratory Depth Respiratory Pattern Blood Pressure Blood Pressure [Right Arm] Blood Pressure [Right Radial Artery] 88/55 L Blood Pressure [Right Thigh] 125/75 Blood Pressure Mean Blood Pressure Mean [Right Arm] Blood Pressure Mean [Right Radial Artery] 66 Blood Pressure Mean [Right Thigh] 91 Pulse Oximetry 94 93 Oxygen Delivery Method Nasal Cannula Oxymask Oxygen Flow Rate 4 6 Fraction of Inspired Oxygen SaO2/FiO2 Ratio Sepsis Recent Fever Within 48 Hours Sepsis New/Unexplained Change in Mental Status Sepsis Action Taken by Nursing 04/08/21 09:25 04/08/21 09:29 04/08/21 09:31 Temperature Temperature Source Pulse Rate 61 Pulse Rate [Apical] 58 L Pulse Rhythm [Apical] Respiratory Rate 20 Respiratory Effort / Characteristics Short of Breath Respiratory Depth Normal Respiratory Pattern Regular Blood Pressure Blood Pressure [Right Arm] Blood Pressure [Right Radial Artery] 88/55 L 78/47 L 83/41 L Blood Pressure [Right Thigh] Blood Pressure Mean Blood Pressure Mean [Right Arm] Blood Pressure Mean [Right Radial Artery] 66 57 55 Blood Pressure Mean [Right Thigh] Pulse Oximetry 100 Oxygen Delivery Method BiPAP Oxygen Flow Rate Fraction of Inspired Oxygen 50 SaO2/FiO2 Ratio 200 Sepsis Recent Fever Within 48 Hours Sepsis New/Unexplained Change in Mental Status Sepsis Action Taken by Nursing 04/08/21 09:34 04/08/21 09:42 04/08/21 10:07 Temperature Temperature Source Pulse Rate Pulse Rate [Apical] 57 L 54 L Pulse Rhythm [Apical] Respiratory Rate 20 20 Respiratory Effort / Characteristics Short of Breath Respiratory Depth Respiratory Pattern Blood Pressure Blood Pressure [Right Arm] 96/41 L 89/44 L 93/56 L Blood Pressure [Right Radial Artery] Blood Pressure [Right Thigh] Blood Pressure Mean Blood Pressure Mean [Right Arm] 59 59 68 Blood Pressure Mean [Right Radial Artery] Blood Pressure Mean [Right Thigh] Pulse Oximetry 100 100 Oxygen Delivery Method BiPAP BiPAP Oxygen Flow Rate Fraction of Inspired Oxygen 50 50 SaO2/FiO2 Ratio 200 200 Sepsis Recent Fever Within 48 Hours Sepsis New/Unexplained Change in Mental Status Sepsis Action Taken by Nursing Laboratory Data Result diagrams: 04/08/21 08:30 04/08/21 08:10 Lab Results 04/08/21 04/08/21 04/08/21 Range/Units 08:10 08:19 08:30 WBC 7.23 (4.8-10.8) K/uL RBC 3.15 L (4.2-5.4) M/uL Hgb 10.8 L (12.0-16.0) g/dL POC Hgb 11.2 L (12.0-16.0) g/dl Hct 34.1 L (37-47) % POC Hct 33 L (37-47) % MCV 108.3 H (80-100) fL MCH 34.3 H (25-34) pg MCHC 31.7 L (32-36) g/dL RDW Std Deviation 58.2 H (36.4-46.3) fL RDW Coeff of Archana 14.8 H (11.5-14.5) % Plt Count 182 (130-400) K/uL MPV 10.6 H (7.4-10.4) fL Immature Gran % (Auto) 0.3 % Neut % (Auto) 51.6 % Lymph % (Auto) 32.2 % Villalba % (Auto) 12.2 % Eos % (Auto) 3.0 % Baso % (Auto) 0.7 % Neut # (Auto) 3.73 (1.4-6.5) K/uL Lymph # (Auto) 2.33 (1.2-3.4) K/uL Villalba # (Auto) 0.88 H (0.11-0.59) K/uL Eos # (Auto) 0.22 (0-0.5) K/uL Baso # (Auto) 0.05 (0-0.2) K/uL Immature Gran # (Auto) 0.02 (0.00-0.02) K/uL PT (9.0-12.0) Seconds INR (0.9-1.1) APTT (21.0-31.0) Seconds PTT Ratio POC pH 7.40 (7.35-7.45) POC pCO2 50 H (35-46) mmHg POC pO2 37 L (80-95) mmHg POC HCO3 30 H (19-24) anya/L POC Total CO2 32 H (24-31) mmol/L POC Base Excess 5.0 H (-9-1.8) anya/L POC ABG O2 Sat 69.0 L (90-95) % POC Sodium 131 L (135-144) mmol/L Sodium 129 L (136-145) mmol/L POC Potassium 5.8 H (3.3-5.0) mmol/L Potassium 5.5 H (3.5-5.1) mmol/L Chloride 95 L (98-107) mmol/L Carbon Dioxide 25 (21-32) mmol/L Anion Gap 9.0 (3-11) BUN 48 H (7-18) mg/dl Creatinine 4.89 H* (0.6-1.2) mg/dl Est Cr Clr Drug Dosing 10.2 ml/min Est GFR ( Amer) 8.9 ml/min Est GFR (Non-Af Amer) 7.7 ml/min BUN/Creatinine Ratio 9.8 L (10-20) Glucose 135 H (70-99) mg/dl Calcium 9.2 (8.5-10.1) mg/dl Magnesium 2.0 (1.8-2.4) mg/dl Total Bilirubin 1.6 H (0.2-1) mg/dl AST 56 H (15-37) U/L ALT 50 (12-78) U/L Alkaline Phosphatase 537 H (45-117) U/L Troponin I < 0.015 (0-0.045) ng/ml Total Protein 7.6 (6.4-8.2) gm/dl Albumin 3.0 L (3.4-5.0) gm/dl Globulin 4.6 H (2.5-4.0) gm/dl Albumin/Globulin Ratio 0.6 L (0.9-2) TSH 3.900 (0.300-4.500) uIu/ml COVID-19 Eval Order SARS-CoV-2 (PCR) (Negative) SARS-CoV-2 RNA (MALIHA) SARS-CoV-2 Comment 04/08/21 04/08/21 04/08/21 Range/Units 08:30 08:35 08:35 WBC (4.8-10.8) K/uL RBC (4.2-5.4) M/uL Hgb (12.0-16.0) g/dL POC Hgb (12.0-16.0) g/dl Hct (37-47) % POC Hct (37-47) % MCV (80-100) fL MCH (25-34) pg MCHC (32-36) g/dL RDW Std Deviation (36.4-46.3) fL RDW Coeff of Archana (11.5-14.5) % Plt Count (130-400) K/uL MPV (7.4-10.4) fL Immature Gran % (Auto) % Neut % (Auto) % Lymph % (Auto) % Villalba % (Auto) % Eos % (Auto) % Baso % (Auto) % Neut # (Auto) (1.4-6.5) K/uL Lymph # (Auto) (1.2-3.4) K/uL Villalba # (Auto) (0.11-0.59) K/uL Eos # (Auto) (0-0.5) K/uL Baso # (Auto) (0-0.2) K/uL Immature Gran # (Auto) (0.00-0.02) K/uL PT 13.2 H (9.0-12.0) Seconds INR 1.3 H (0.9-1.1) APTT 29.6 (21.0-31.0) Seconds PTT Ratio 1.1 POC pH (7.35-7.45) POC pCO2 (35-46) mmHg POC pO2 (80-95) mmHg POC HCO3 (19-24) anya/L POC Total CO2 (24-31) mmol/L POC Base Excess (-9-1.8) anya/L POC ABG O2 Sat (90-95) % POC Sodium (135-144) mmol/L Sodium (136-145) mmol/L POC Potassium (3.3-5.0) mmol/L Potassium (3.5-5.1) mmol/L Chloride (98-107) mmol/L Carbon Dioxide (21-32) mmol/L Anion Gap (3-11) BUN (7-18) mg/dl Creatinine (0.6-1.2) mg/dl Est Cr Clr Drug Dosing ml/min Est GFR ( Amer) ml/min Est GFR (Non-Af Amer) ml/min BUN/Creatinine Ratio (10-20) Glucose (70-99) mg/dl Calcium (8.5-10.1) mg/dl Magnesium (1.8-2.4) mg/dl Total Bilirubin (0.2-1) mg/dl AST (15-37) U/L ALT (12-78) U/L Alkaline Phosphatase (45-117) U/L Troponin I (0-0.045) ng/ml Total Protein (6.4-8.2) gm/dl Albumin (3.4-5.0) gm/dl Globulin (2.5-4.0) gm/dl Albumin/Globulin Ratio (0.9-2) TSH (0.300-4.500) uIu/ml COVID-19 Eval Order Covid19 at [facility] SARS-CoV-2 (PCR) (Negative) SARS-CoV-2 RNA (MALIHA) Cancelled SARS-CoV-2 Comment Cancelled 04/08/21 04/08/21 Range/Units 08:35 08:35 WBC (4.8-10.8) K/uL RBC (4.2-5.4) M/uL Hgb (12.0-16.0) g/dL POC Hgb (12.0-16.0) g/dl Hct (37-47) % POC Hct (37-47) % MCV (80-100) fL MCH (25-34) pg MCHC (32-36) g/dL RDW Std Deviation (36.4-46.3) fL RDW Coeff of Archana (11.5-14.5) % Plt Count (130-400) K/uL MPV (7.4-10.4) fL Immature Gran % (Auto) % Neut % (Auto) % Lymph % (Auto) % Villalba % (Auto) % Eos % (Auto) % Baso % (Auto) % Neut # (Auto) (1.4-6.5) K/uL Lymph # (Auto) (1.2-3.4) K/uL Villalba # (Auto) (0.11-0.59) K/uL Eos # (Auto) (0-0.5) K/uL Baso # (Auto) (0-0.2) K/uL Immature Gran # (Auto) (0.00-0.02) K/uL PT (9.0-12.0) Seconds INR (0.9-1.1) APTT (21.0-31.0) Seconds PTT Ratio POC pH (7.35-7.45) POC pCO2 (35-46) mmHg POC pO2 (80-95) mmHg POC HCO3 (19-24) anya/L POC Total CO2 (24-31) mmol/L POC Base Excess (-9-1.8) anya/L POC ABG O2 Sat (90-95) % POC Sodium (135-144) mmol/L Sodium (136-145) mmol/L POC Potassium (3.3-5.0) mmol/L Potassium (3.5-5.1) mmol/L Chloride (98-107) mmol/L Carbon Dioxide (21-32) mmol/L Anion Gap (3-11) BUN (7-18) mg/dl Creatinine (0.6-1.2) mg/dl Est Cr Clr Drug Dosing ml/min Est GFR ( Amer) ml/min Est GFR (Non-Af Amer) ml/min BUN/Creatinine Ratio (10-20) Glucose (70-99) mg/dl Calcium (8.5-10.1) mg/dl Magnesium (1.8-2.4) mg/dl Total Bilirubin (0.2-1) mg/dl AST (15-37) U/L ALT (12-78) U/L Alkaline Phosphatase (45-117) U/L Troponin I (0-0.045) ng/ml Total Protein (6.4-8.2) gm/dl Albumin (3.4-5.0) gm/dl Globulin (2.5-4.0) gm/dl Albumin/Globulin Ratio (0.9-2) TSH (0.300-4.500) uIu/ml COVID-19 Eval Order SARS-CoV-2 (PCR) NEGATIVE Cancelled (Negative) SARS-CoV-2 RNA (MALIHA) SARS-CoV-2 Comment Administered Medications Norepinephrine Bitartrate (Levophed/D5w) 8 mg in 508 mls @ 0 mls/hr IV .Q0M YULIET; Protocol Stop: 05/08/21 10:14 Last Titration: 04/08/21 13:49 Dose: 0 mcg/kg/min, 0 mls/hr Documented by: [id number] Titration: 04/08/21 12:57 Dose: 0.01 mcg/kg/min, 3.7 mls/hr Documented by: [id number] Titration: 04/08/21 12:13 Dose: 0.03 mcg/kg/min, 11 mls/hr Documented by: [id number] Admin: 04/08/21 10:21 Dose: 0.05 mcg/kg/min, 18.4 mls/hr Documented by: [id number] Cosigned by: [id number] Ceftriaxone Sodium 2,000 mg/ (Dextrose) 70 mls @ 100 mls/hr IV Q24H YULIET; Protocol Stop: 04/15/21 12:59 Last Admin: 04/08/21 14:08 Dose: 100 mls/hr Documented by: [id number] Doxycycline Hyclate 100 mg/ (Dextrose) 110 mls @ 50 mls/hr IV Q12H YULIET; Protocol Stop: 04/13/21 12:59 Last Admin: 04/08/21 14:08 Dose: 50 mls/hr Documented by: [id number] Imaging Data Radiologist's Impression: Chest X-Ray 04/08/21 08:07 XR chest 1V portable HISTORY: 80 years-old Female Dysrhythmia COMPARISON: Chest radiograph 09/23/2020 TECHNIQUE: Portable AP view of the chest FINDINGS: Cardiac silhouette is enlarged. No pneumothorax. Pulmonary vascular congestion with interstitial coarsening. Trace left with chronic moderate right pleural effusion. Right greater the and left bibasilar consolidation. Degenerative changes of the shoulders and spine. ORIF hardware of the left proximal humerus with healed chronic fracture deformity. IMPRESSION: 1. Cardiomegaly with pulmonary vascular congestion. 2. Unchanged moderate right pleural effusion with right greater than left bibasilar consolidation. ACT 112: Negative or not required by law. The above report was generated using voice recognition software. It may contain grammatical, syntax or spelling errors. Electronically signed by: Kaushal Henry M.D. 04/08/2021 9:[address] 04/08/21 08:40 CT SCAN OF THE BRAIN WITHOUT IV CONTRAST CLINICAL HISTORY: Change in mental status. Bradycardia. COMPARISON STUDY: CT of the brain dated 09/23/2020. TECHNIQUE: Unenhanced axial CT scan of the brain is performed from the vertex to the skull base. A dose lowering technique was utilized adhering to the principles of ALARA. The examination is degraded by motion artifact. CT DOSE: 1302.24 mGy.cm FINDINGS: Brain parenchyma: There are age-related involutional changes noting moderate subcortical and periventricular microangiopathic change. There is no hemorrhage, mass effect, or evidence of acute territorial ischemia by CT criteria. A chronic lacunar infarct is noted in the left thalamus. Daniel-white matter differentiation is preserved. No extra-axial fluid collection is seen. Ventricles, sulci, cisterns: Prominent secondary to involutional change. Intracranial vasculature: There is atherosclerotic calcification of the cavernous carotid and vertebral arteries. Calvarium: Unremarkable. Sinuses and mastoids: The visualized paranasal sinuses are clear. The mastoid air cells are well pneumatized. Orbits: The bony orbits are grossly intact. There are bilateral ocular lens implants. IMPRESSION: There is no hemorrhage, mass effect, or evidence of acute territ orial ischemia by CT criteria noting a motion compromise examination. ACT 112: Negative or not required by law. Electronically signed by: Lenin Cohen M.D. 04/08/2021 10:05 AM Discharge Plan Visit Data Chief Complaint: Cardiac Assessment Stated Complaint: SYNCOPE, HYPOTENSION, WEAKNESS, BRADYCARDIA ED Provider: Celia England Discharge Problem: Respiratory failure, acute, CHF (congestive heart failure), End stage renal disease on dialysis, Pleural effusion due to CHF (congestive heart failure), Symptomatic sinus bradycardia, Hypotension Patient Disposition: Admitted As Inpatient Discharge Instructions Interventions: ED Discharge Assessment Last Done: 04/08/21 11:12
[2021-04-08] MEDS ORDERED: bisacodyL 10 MG SUPP PR PRN (15:49)
[2021-04-08] MEDS ORDERED: CHLORPHENIRAMINE DEXTROMETHORP PO PRN (15:49)
[2021-04-08] MEDS ORDERED: CALCIUM CARBONATE 500 MG CHEWABLE TAB PO PRN (16:00)
[2021-04-08] MEDS: HEPARIN SOD (PORCINE) 1000 UNIT/ML IV SCH ×2 (16:01→16:02)
[2021-04-08] MEDS: INSULIN ASPART 100 UNITS/ML 3 ML PEN SC SCH ×2 (16:42→20:08)
--- NOTE | 2021-04-08 17:03 | Consultation Report ---
NEPHROLOGY CONSULTATION NOTE DATE OF SERVICE: 04/08/2021 REASON FOR CONSULTATION: Dialysis patient admitted with respiratory failure, hypoxia and shortness o f breath. HISTORY OF PRESENT ILLNESS: The patient is an 80-year-old female with very extensive medical problem list including longstanding diabetes, on insulin, end-stage renal disease, on hemodialysis Tuesday, , Tuesday at the correction, extensive cardiac disease including congestive heart failure wi th an ejection fraction of 25%, pulmonary hypertension, wheelchair bound and a long-term resident of a correction. She presented to the Emergency Department from the correction where she had a sync opal episode as they were preparing to start dialysis earlier today. Her heart rate was in the 30s a s per the EMS, she was also hypoxic and required a nonrebreather mask to maintain saturation. In the Emergency Department, she had a slightly better heart rate, but her blood pressure was low in the 80s and 70s systolic. She was put on a BiPAP because of hypoxia and respiratory distress. X-ray showed marked fluid overload/pulmonary edema. I saw the patient while in the Emergency Department; she was not in any position to give me any history as she was very sick. ALLERGIES: LIST WAS REVIEWED IN DETAIL AND IS EXTENSIVE. MEDICATIONS: Home medication list was reviewed in detail and is as per the reconciliation list. PAST MEDICAL AND SURGICAL HISTORY: Includes congestive heart failure with EF of 25% and diastolic al so, anemia, history of breast cancer, status post radiation, coronary artery disease, cardiorenal syn drome, chronic back pain, type 2 diabetes insulin-dependent, end-stage renal disease, on dialysis Tue, Tuesday, Tuesday, gastroesophageal reflux disease, hemothorax after procedure, history of deep vein thrombosis, hyperlipidemia, hypothyroidism, left bundle branch block, morbid obesity, nausea, vo miting, peripheral neuropathy, history of pleural effusion, AV fistula placement, appendicectomy, car diac catheterization, cataract surgery, lumpectomy, status post aneurysm repair of the AV fistula. FAMILY HISTORY: Negative for renal disease or dialysis. SOCIAL HISTORY: Unable to obtain from the patient, but as per the chart, the patient is not a smoker at this time. No alcohol. She is . She is very limited with continuous oxygen as well as wheelchair at home. She is currently a resident of correction. REVIEW OF SYSTEMS: Unable to obtain given the patient's clinical status and extreme shortness of calvin ath and being on BiPAP. She was also very restless. PHYSICAL EXAMINATION: GENERAL: The patient appears to be very uncomfortable. She is in significant respiratory distress a nd very anxious and restless. She is on a BiPAP and unable to answer any questions. She is, however , alert with eyes open, but not really following the command. VITAL SIGNS: Blood pressure is 99/66, pulse rate 72, temperature 36.7, 96% on BiPAP 50% FiO2. HEENT: Mucous membranes are moist. NECK: Supple. Jugular venous distention is present. CHEST: Bilaterally decreased breath sounds, crackles at the bases. Poor limited quality exam, sigrid sherman. CARDIOVASCULAR: S1 and S2, regular. Systolic murmur heard. ABDOMEN: Soft, nontender. EXTREMITIES: Show trace edema. AV fistula is present in the left upper extremity. LABORATORY TEST: Hemoglobin 10.8, WBC count 7.23. Sodium 129, potassium 5.5, BUN 48, creatinine 4.9. Arterial blood gas shows a pH of 7.4, pO2 of 37, pCO2 of 50, bicarbonate 30. Chest x-ray shows car diomegaly with congestive heart failure and pulmonary edema, moderate right pleural effusion with ass ociated consolidation at the right lower lung, consolidation also at the left lung base. ASSESSMENT AND PLAN: An 80-year-old female with end-stage renal disease, on dialysis on Tuesday, , Tuesday at the correction as well as significant cardiac history including ejection fraction of 25%, pulmonary hypertension and other medical problems. She presented to the hospital because of syncopal episode at the correction associated with bradycardia. She has significant fluid overload /pulmonary edema at this time. I have been consulted for dialysis management. End-stage renal disease: She has significant problem at this time including hyperkalemia, hyponatrem ia, but most importantly, she is in significant pulmonary edema and needs to be diuresed with dialysi s. We will try to take as much fluid as possible, but it will be hard given that her blood pressure even before dialysis is only around 80 systolic. I have talked to the Emergency Department and we tran ve started using some Levophed to allow higher blood pressures, so that we can take more fluid off. Her overall prognosis is quite bad and if she does not turn around within the next one day, I would r ecommend doing a palliative medicine consult also. Already spoken with the dialysis nurse and they w ill be doing dialysis within the next few hours. We would like to do dialysis in the intensive care unit under close monitoring. Job ID: [id number]
[2021-04-08] MEDS: GABAPENTIN 100 MG CAP PO SCH (20:07)
[2021-04-08] MEDS: ATORVASTATIN 10 MG TAB PO SCH (20:07)
[2021-04-08] MEDS: INSULIN GLARGINE SOLOSTAR 100 UNITS/ML 3 ML PEN SC SCH (20:09)
[2021-04-09] MEDS: DOXYCYCLINE HYCLATE 100 MG in DEXTROSE 5% 100 ML IV SCH ×2 (01:45→12:40)
[2021-04-09 05:02] LABS: Basophils # (auto) 0.04 K/uL (0-0.2); Basophils % (auto) 0.8 %; Eosinophils # (auto) 0.18 K/uL (0-0.5); Eosinophils % (auto) 3.4 %; Hematocrit (blood only) 30.6 % (37-47); Hemoglobin 9.8 g/dL (12.0-16.0); Immature Granulocytes # (auto) 0.01 K/uL (0.00-0.02); Immature Granulocytes % (auto) 0.2 %; Lymphocytes # (auto) 0.69 K/uL (1.2-3.4); Mean Corpuscular Volume 106.3 fL (80-100); Mean Platelet Volume 9.5 fL (7.4-10.4); Monocytes # (auto) 0.62 K/uL (0.11-0.59); Monocytes % (auto) 11.7 %; Neutrophils # (auto) 3.76 K/uL (1.4-6.5); Neutrophils % (auto) 70.9 %; Platelet Count 136 K/uL (130-400); RDW Coefficient of Variation 14.8 % (11.5-14.5); RDW Standard Deviation 57.1 fL (36.4-46.3); Red Blood Count 2.88 M/uL (4.2-5.4)
[2021-04-09 05:20] LABS: INR 1.4 (0.9-1.1); Prothrombin Time 13.5 Seconds (9.0-12.0)
[2021-04-09 05:28] LABS: BUN Creatinine Ratio 8.2 (10-20); Calcium 8.6 mg/dl (8.5-10.1); Est GFR (African American) 11.6 ml/min; Phosphorus 3.1 mg/dl (2.5-4.9)
[2021-04-09] MEDS ORDERED: PATIROMER CALCIUM SORBITEX 8.4 GM PACK PO ONE (07:49)
[2021-04-09] MEDS: INSULIN GLARGINE SOLOSTAR 100 UNITS/ML 3 ML PEN SC SCH ×2 (08:52→20:32)
[2021-04-09] MEDS: INSULIN ASPART 100 UNITS/ML 3 ML PEN SC SCH ×4 (08:52→20:32)
[2021-04-09] MEDS: HEPARIN SOD 5,000 UNIT/0.5 ML VIAL SQ SCH ×2 (08:54→19:46)
[2021-04-09] MEDS: GABAPENTIN 100 MG CAP PO SCH ×2 (08:54→19:46)
[2021-04-09] MEDS: LEVOTHYROXINE SODIUM 75 MCG TABLET PO SCH (08:55)
[2021-04-09] MEDS: PANTOprazole 40 MG TAB PO SCH (08:55)
[2021-04-09] MEDS: LORATADINE 10 MG TAB PO SCH (08:55)
[2021-04-09] MEDS: MONTELUKAST SODIUM 10 MG TABLET PO SCH (08:55)
[2021-04-09] MEDS: CEROVITE ADV FORMULA TAB PO SCH (08:55)
[2021-04-09] MEDS: cefTRIAXone SODIUM 2,000 MG in DEXTROSE 5% 50 ML IV SCH (12:40)
--- NOTE | 2021-04-09 14:11 | Nephrology Progress Note ---
Date of Service April 09, 2021 Assessment & Plan Admission and Anticipated Discharge Date Admission Date: April 08, 2021 Subjective markedly better today. Talking and no resp distress. On o2 and not Bipap. had dialysis yesterday and 3.7 kilo romeoved. PHYSICAL EXAMINATION: GENERAL: More comfortable. Talking to me today HEENT: Mucous membranes are moist. NECK: Supple. Jugular venous distention is present. CHEST: Bilaterally decreased breath sounds Poor limited quality exam, however. CARDIOVASCULAR: S1 and S2, regular. Systolic murmur heard. ABDOMEN: Soft, nontender. EXTREMITIES: Show trace edema. AV fistula is present in the left upper extremity. LABORATORY TEST: Labs reviewed. Slightly low Na ASSESSMENT AND PLAN: An 80-year-old female with end-stage renal disease, on dialysis on Tuesday, Tuesday, Tuesday at the care home as well as significant cardiac history including ejection fraction of 25%, pulmonary hypertension and other medical problems. She presented to the hospital because of syncopal episode at the care home associated with bradycardia. She has significant fluid overload/pulmonary edema at this time. I have been consulted for dialysis management. End-stage renal disease: Glad to see marked improvement compared to yesterday. Much less Distress. More alert and better BP and HR. Next HD tomorrow and will take 3- 3.5 kilo tomorrow again. 2k bath Results & Data ([facility]) Vital Signs (Past 12 Hours) Vital Signs Temp Pulse Resp BP Pulse Ox 04/09/21 12:02 99 H 04/09/21 10:00 99 H 26 H 159/79 H 95 04/09/21 09:00 96 H 28 H 97 04/09/21 08:00 37 C 97 H 20 99 04/09/21 07:00 91 H 20 99 04/09/21 06:00 93 H 15 98 04/09/21 05:00 81 20 114/68 99 04/09/21 04:30 90 13 97 04/09/21 04:00 81 19 84/56 L 94 04/09/21 03:30 80 26 H 99 04/09/21 03:00 85 25 H 109/62 96 04/09/21 02:30 84 19
--- NOTE | 2021-04-09 14:35 | Hospitalist Progress Note ---
Date of Service April 09, 2021 Assessment & Plan (1) Volume overload: (2) Hypotension: (3) Acute respiratory failure with hypoxia: Plan: Suspect due to #1 - COVID negative (4) Pleural effusion on right: Plan: Chronic issue (5) Systolic and diastolic CHF w/reduced LV function, NYHA class 4: (6) Hyperlipidemia: (7) Peripheral neuropathy: (8) Hypothyroidism: (9) Diabetes mellitus type 2, insulin dependent: (10) Non-ischemic cardiomyopathy: Plan: Patient is 80 y/o wheelchair-bound female with a hx of ESRD on HD (M/W/F), in sulin-requiring DM, HTN, GERD, non-obstructive CAD, PAFib (no AC), hx breast CA s/p partial mastectomy, diastolic dysfunction, chronic HFrED, pulmonary HTN, dyslipidemia, and hypothyroidism who presented from [facility] facility where she had a syncopal episode while they were preparing her for dialysis. Underlying etiology being possibly sepsis. Currently overall doing okay. She is off pressors. WBC is within normal limit. Hemoglobin of 9.8. Sodium 131. Hyperkalemia is improved. Currently on 3 L of nasal cannula. Was on the BiPAP on admission. Appreciate nephrology input. Patient underwent dialysis. Significant improvement today. Next dialysis tomorrow. Continue routine dialysis sessions. We will continue with ceftriaxone/doxycycline. Continue with POLICE STENOGRAPHER medications. Transfer to PCU. Work with PT/OT. Admission and Anticipated Discharge Date Admission Date: April 08, 2021 Subjective Patient is resting comfortably. She does not appear to be in any distress. Denies feeling short of breath. He on 3 L of nasal cannula. Does report minimal cough. Denies any chest pain or abdominal pain. Rest of the review of system is negative. Review of Systems Review of Systems: All systems reviewed & are unremarkable except as noted in HPI & below Physical Exam Physical Exam: General: Awake and alert, chronically ill-appearing female HENT: NCAT, MMM, EOMI Eyes: PERRLA Neck: Supple, normal range of motion CVS: normal rate and rhythm Resp: b/l deccreased breath sounds Abdomen: Soft, nondistended and nontender Extremities: No c/c/e Neuro: face symmetric, no gross focal deficit appreciated Skin: warm and dry, no rashes/lesions/errythema MSK: normal ROM, no joint swelling/erythema Results & Data Results & Data ([facility]) Vital Signs (Past 12 Hours) Vital Signs Temp Pulse Resp BP Pulse Ox 04/09/21 12:02 99 H 04/09/21 10:00 99 H 26 H 159/79 H 95 04/09/21 09:00 96 H 28 H 97 04/09/21 08:00 37 C 97 H 20 99 04/09/21 07:00 91 H 20 99 04/09/21 06:00 93 H 15 98 04/09/21 05:00 81 20 114/68 99 04/09/21 04:30 90 13 97 04/09/21 04:00 81 19 84/56 L 94 04/09/21 03:30 80 26 H 99 04/09/21 03:00 85 25 H 109/62 96 (1) Volume overload Hypervolemia type: other Qualified Code(s): E87.79 - Other fluid overload (2) Hyperlipidemia Hyperlipidemia type: unspecified Qualified Code(s): E78.5 - Hyperlipidemia, unspecified (3) Hypothyroidism Hypothyroidism type: acquired Qualified Code(s): E03.9 - Hypothyroidism, unspecified
--- NOTE | 2021-04-09 15:00 | Critical Care Progress Note ---
Date of Service April 09, 2021 Assessment & Plan (1) Hypotension: (2) Pleural effusion: (3) Hypoxemia: (4) CHF (congestive heart failure): (5) ESRD (end stage renal disease) on dialysis: Plan: Chest x-ray 04/08/2021 personally reviewed: Portable film, fair inspiratory effort, bilateral costophrenic angle are blunted, right-sided pleural effusion PICC line in place Increased cardiac silhouette --Acute hypoxic respiratory failure Likely secondary to fluid overload with systolic CHF COVID-19 PCR negative Procalcitonin 0.19 Nasal MRSA negative --Right-sided pleural effusion S/p thoracentesis 07/27/2020 1400ml removed. Cultures were negative Seem to be transudative No indication for thoracentesis. Continue with hemodialysis --Syncopal episode prior to presentation likely from hypotension Etiology is unclear, sepsis cannot be ruled out Continue with broad-spectrum antibiotics --End-stage renal disease On hemodialysis --Diabetes type 2 Continue with ICU hypoglycemia protocol --Morbid obesity with possible NOE Continue with BiPAP nightly and as needed shortness of breath --Dyslipidemia Continue with atorvastatin --Hypothyroidism Continue with levothyroxine TSH 3.9 --DNI --Prophylaxis VTE: Heparin GI: Protonix Lines: Right arm PICC Diet: Cardiorenal diet Plan: In/out: -3.4 L with dialysis A dose of patiromer was given to the patient for potassium was 5. Patient is going to get hemodialysis today as well. Patient did not need vasopressor support since coming to the ICU Continue with antibiotics for total of 5 days Patient is hemodynamically stable to be sent to medical floor. Please note the above document was generated using voice recognition software. It may contain grammatical, syntax or spelling errors.Any formal questions or concerns about the content, text or information contained within the body of this dictation should be directly addressed to the provider for clarification. Admission and Anticipated Discharge Date Admission Date: April 08, 2021 Subjective Patient seen and examined at bedside. No acute distress, no adverse events overnight Patient with hemodialyze yesterday. Patient was saturating 90% on 2 L nasal cannula at the time of examination She denies any chest pain, no headache, no nausea, no vomiting Had good appetite. Physical Exam Physical Exam: Constitutional: No acute distress HEENT: EOMI, PERRLA, hard to hear Respiratory system: Decreased air entry bilaterally, more decreased on the right, no wheeze, rhonchi, positive crackles bilateral lower lobes CVS: S1-S2 positive, no murmurs or gallops, distant heart sounds Abdomen: Soft, nontender, nondistended, positive bowel sounds x4, obese Extremities: +2 pulses bilaterally radialis/ dorsalis pedis, no cyanosis, +1 pitting edema bilateral lower extremity Neuro: Awake alert oriented x3 Psych: Normal mood and affect G/U: No Fish Skin: no rashes, warm and dry Lymphatic: no cervical or axillary lymphadenopathy Results & Data Results & Data ([facility]) Vital Signs (Past 12 Hours) Vital Signs Temp Pulse Resp BP Pulse Ox 04/09/21 12:02 99 H 04/09/21 10:00 99 H 26 H 159/79 H 95 04/09/21 09:00 96 H 28 H 97 04/09/21 08:00 37 C 97 H 20 99 04/09/21 07:00 91 H 20 99 04/09/21 06:00 93 H 15 98 04/09/21 05:00 81 20 114/68 99 04/09/21 04:30 90 13 97 04/09/21 04:00 81 19 84/56 L 94 04/09/21 03:30 80 26 H 99 04/09/21 03:00 85 25 H 109/62 96 04/09/21 04:53 04/09/21 04:53 Coding Level of Care Code 28766 Subseq Hosp Care Lvl 3 Diagnoses Hypotension I95.9 Pleural effusion J90 Hypoxemia R09.02 CHF (congestive heart failure) I50.9 Heart failure chronicity: acute on chronic Heart failure type: unspecified ESRD (end stage renal disease) on dialysis N18.6; Z99.2 (1) CHF (congestive heart failure) Heart failure chronicity: acute on chronic Heart failure type: unspecified Qualified Code(s): I50.9 - Heart failure, unspecified
[2021-04-09] MEDS: ATORVASTATIN 10 MG TAB PO SCH (19:46)
[2021-04-09] MEDS ORDERED: COUGH DROP (SUGAR FREE) LOZ 24 LOZ/1 BOX BUCCAL STA (19:47)
[2021-04-10] MEDS: DOXYCYCLINE HYCLATE 100 MG in DEXTROSE 5% 100 ML IV SCH ×2 (01:01→12:10)
[2021-04-10 05:47] LABS: Basophils # (auto) 0.04 K/uL (0-0.2); Basophils % (auto) 0.7 %; Eosinophils # (auto) 0.32 K/uL (0-0.5); Hematocrit (blood only) 30.8 % (37-47); Hemoglobin 9.9 g/dL (12.0-16.0); Immature Granulocytes # (auto) 0.01 K/uL (0.00-0.02); Immature Granulocytes % (auto) 0.2 %; Lymphocytes # (auto) 0.85 K/uL (1.2-3.4); Lymphocytes % (auto) 15.9 %; Mean Corpuscular Hemoglobin 34.7 pg (25-34); Mean Corpuscular Hgb Conc 32.1 g/dL (32-36); Mean Corpuscular Volume 108.1 fL (80-100); Mean Platelet Volume 9.8 fL (7.4-10.4); Monocytes # (auto) 0.69 K/uL (0.11-0.59); Monocytes % (auto) 12.9 %; Neutrophils # (auto) 3.45 K/uL (1.4-6.5); Neutrophils % (auto) 64.3 %; Platelet Count 149 K/uL (130-400); RDW Coefficient of Variation 14.8 % (11.5-14.5); RDW Standard Deviation 58.5 fL (36.4-46.3); Red Blood Count 2.85 M/uL (4.2-5.4); White Blood Count 5.36 K/uL (4.8-10.8)
[2021-04-10 06:23] LABS: BUN Creatinine Ratio 8.5 (10-20); Calcium 8.7 mg/dl (8.5-10.1); Creatinine Clr Calc Pharmacy 8.6 ml/min; Est GFR (African American) 7.5 ml/min; Est GFR (Non-African American) 6.5 ml/min; Potassium 4.8 mmol/L (3.5-5.1)
[2021-04-10] MEDS ORDERED: EPOETIN ALFA 10,000 UNITS/ML VIAL IV ONE (07:00)
[2021-04-10] MEDS ORDERED: HEPARIN SOD (PORCINE) 1000 UNIT/ML IV SCH (07:00)
[2021-04-10] MEDS: CEROVITE ADV FORMULA TAB PO SCH (08:01)
[2021-04-10] MEDS: PANTOprazole 40 MG TAB PO SCH (08:01)
[2021-04-10] MEDS: LORATADINE 10 MG TAB PO SCH (08:01)
[2021-04-10] MEDS: GABAPENTIN 100 MG CAP PO SCH ×2 (08:01→23:19)
[2021-04-10] MEDS: MONTELUKAST SODIUM 10 MG TABLET PO SCH (08:02)
[2021-04-10] MEDS: INSULIN ASPART 100 UNITS/ML 3 ML PEN SC SCH ×4 (08:02→23:20)
[2021-04-10] MEDS: LEVOTHYROXINE SODIUM 75 MCG TABLET PO SCH (08:02)
[2021-04-10] MEDS: HEPARIN SOD 5,000 UNIT/0.5 ML VIAL SQ SCH ×2 (08:02→23:19)
[2021-04-10] MEDS: INSULIN GLARGINE SOLOSTAR 100 UNITS/ML 3 ML PEN SC SCH ×2 (08:03→23:20)
--- NOTE | 2021-04-10 10:06 | Nephrology Progress Note ---
Date of Service April 10, 2021 Assessment & Plan Admission and Anticipated Discharge Date Admission Date: April 08, 2021 Subjective Subjective better today. Talking and no resp distress. But does have lot of cough. PHYSICAL EXAMINATION: GENERAL: More comfortable. Talking to me today HEENT: Mucous membranes are moist. NECK: Supple. Jugular venous distention is present. CHEST: Bilaterally decreased breath sounds Poor limited quality exam, however. CARDIOVASCULAR: S1 and S2, regular. Systolic murmur heard. ABDOMEN: Soft, nontender. EXTREMITIES: Show trace edema. AV fistula is present in the left upper extremity. LABORATORY TEST: Labs reviewed. Slightly low Na ASSESSMENT AND PLAN: An 80-year-old female with end-stage renal disease, on dialysis on Tuesday, Tuesday, Tuesday at the long term as well as significant cardiac history including ejection fraction of 25%, pulmonary hypertension and other medical problems. She presented to the hospital because of syncopal e pisode at the long term associated with bradycardia. She has significant fluid overload/pulmonary edema at this time. I have been consulted for dialysis management. End-stage renal disease: Glad to see marked improvement. Much less Distress. More alert and better BP and HR. Next HD later toay and will take 3 kilo again. 2k bath Results & Data ([facility]) Vital Signs (Past 12 Hours) Vital Signs Temp Pulse Pulse Resp BP BP Pulse Ox 04/10/21 08:00 36.6 C 94 H 16 110/51 L 92 04/10/21 04:00 36.4 C L 78 12 134/65 96 04/09/21 23:52 96 H 04/09/21 23:46 37 C 92 H 17 108/64 96
--- NOTE | 2021-04-10 11:40 | Hospitalist Progress Note ---
Date of Service April 10, 2021 Assessment & Plan (1) Volume overload: (2) Hypotension: (3) Acute respiratory failure with hypoxia: Plan: Suspect due to #1 - COVID negative (4) Pleural effusion on right: Plan: Chronic issue (5) Systolic and diastolic CHF w/reduced LV function, NYHA class 4: (6) Hyperlipidemia: (7) Peripheral neuropathy: (8) Hypothyroidism: (9) Diabetes mellitus type 2, insulin dependent: (10) Non-ischemic cardiomyopathy: Plan: Patient is 80 y/o wheelchair-bound female with a hx of ESRD on HD (M/W/F), in sulin-requiring DM, HTN, GERD, non-obstructive CAD, PAFib (no AC), hx breast CA s/p partial mastectomy, diastolic dysfunction, chronic HFrED, pulmonary HTN, dyslipidemia, and hypothyroidism who presented from longterm facility where she had a syncopal episode while they were preparing her for dialysis. On admission patient was found to be fluid overload, hypotensive and in acute hypoxic respiratory failure. Possible etiology of syncope could be sepsis. Critical care and nephrology was consulted. Patient underwent her routine dialysis session. PICC line was also obtained as patient was requiring pressors initially. Currently she is off pressors. Overall doing okay. Currently on room air. Hemodynamically doing fine.WBC is within normal limit. Hemoglobin of 9.8. Sodium 128. Hyperkalemia is improved. Was on the BiPAP on admission. Appreciate nephrology input. Patient underwent dialysis. Significant improvement today. Next dialysis tomorrow. Continue routine dialysis sessions. Plan to go for another dialysis session today. We will continue with ceftriaxone/doxycycline. Continue with MEDICAL EDUCATION SPECIALIST medications. Transfer to telemetry floor. Work with PT/OT. Admission and Anticipated Discharge Date Admission Date: April 08, 2021 Subjective This morning patient is awake and alert. She is oriented to place. Patient is currently on room air. Does not appear to be in any distress. Hemodynamically doing fine reports. Reports her shortness of breath is better. Review of Systems Review of Systems: All systems reviewed & are unremarkable except as noted in HPI & below Physical Exam Physical Exam: General: Awake and alert, chronically ill-appearing female HENT: NCAT, MMM, EOMI Eyes: PERRLA Neck: Supple, normal range of motion CVS: normal rate and rhythm Resp: b/l decreased breath sounds Abdomen: Soft, nondistended and nontender Extremities: No c/c/e Neuro: face symmetric, no gross focal deficit appreciated Skin: warm and dry MSK: no joint swelling/erythema Results & Data Results & Data ([facility]) Vital Signs (Past 12 Hours) Vital Signs Temp Pulse Pulse Resp BP BP Pulse Ox 04/10/21 08:00 36.6 C 94 H 16 110/51 L 92 04/10/21 04:00 36.4 C L 78 12 134/65 96 04/09/21 23:52 96 H 04/09/21 23:46 37 C 92 H 17 108/64 96 (1) Volume overload Hypervolemia type: other Qualified Code(s): E87.79 - Other fluid overload (2) Hyperlipidemia Hyperlipidemia type: unspecified Qualified Code(s): E78.5 - Hyperlipidemia, unspecified (3) Hypothyroidism Hypothyroidism type: acquired Qualified Code(s): E03.9 - Hypothyroidism, unspecified
[2021-04-10] MEDS: cefTRIAXone SODIUM 2,000 MG in DEXTROSE 5% 50 ML IV SCH (12:11)
[2021-04-10] MEDS: HEPARIN SOD (PORCINE) 1000 UNIT/ML IV SCH ×2 (20:02→20:03)
[2021-04-10] MEDS ORDERED: XOPENEX/ATROVENT 1.25mg/0.5MG NEB COMBO NEB STA (23:15)
[2021-04-10] MEDS ORDERED: LEVALBUTEROL 1.25MG/0.5ML NEB INH STA (23:19)
[2021-04-10] MEDS ORDERED: IPRATROPIUM BROMIDE NEB SOLN 0.02% 2.5 ML VIAL INH STA (23:19)
[2021-04-10] MEDS: ATORVASTATIN 10 MG TAB PO SCH (23:19)
[2021-04-11] MEDS: DOXYCYCLINE HYCLATE 100 MG in DEXTROSE 5% 100 ML IV SCH ×2 (01:06→14:26)
[2021-04-11] MEDS: guaiFENesin/DEXTROM SYRUP 200MG/20MG 10ML UDC PO PRN ×2 (01:16→20:52)
[2021-04-11] MEDS: MELATONIN 3 MG TAB PO PRN (01:16)
[2021-04-11] MEDS: OLANZapine 10 MG/2.1 ML SDV IM PRN (02:37)
[2021-04-11] MEDS: LEVOTHYROXINE SODIUM 75 MCG TABLET PO SCH (08:52)
[2021-04-11] MEDS: CEROVITE ADV FORMULA TAB PO SCH (08:52)
[2021-04-11] MEDS: HEPARIN SOD 5,000 UNIT/0.5 ML VIAL SQ SCH ×2 (08:53→20:50)
[2021-04-11] MEDS: PANTOprazole 40 MG TAB PO SCH (08:53)
[2021-04-11] MEDS: MONTELUKAST SODIUM 10 MG TABLET PO SCH (08:53)
[2021-04-11] MEDS: LORATADINE 10 MG TAB PO SCH (08:53)
[2021-04-11] MEDS: INSULIN GLARGINE SOLOSTAR 100 UNITS/ML 3 ML PEN SC SCH ×2 (08:54→20:51)
[2021-04-11] MEDS: INSULIN ASPART 100 UNITS/ML 3 ML PEN SC SCH ×4 (08:56→20:51)
[2021-04-11 09:21] LABS: BUN Creatinine Ratio 6.8 (10-20); Creatinine Clr Calc Pharmacy 12.1 ml/min; Est GFR (African American) 11.7 ml/min; Est GFR (Non-African American) 10.1 ml/min; Magnesium 1.8 mg/dl (1.8-2.4); Phosphorus 2.8 mg/dl (2.5-4.9); Potassium 4.1 mmol/L (3.5-5.1)
--- NOTE | 2021-04-11 11:38 | Nephrology Progress Note ---
Date of Service April 11, 2021 Assessment & Plan (1) End stage renal disease on dialysis: Plan: Patient with ESRD on dialysis Tuesday. She had dialysis yesterday. She has a left AV fistula which is working well. Labs are stable and no signs of volume overload. No indication for dialysis today. -Next dialysis will be Tuesday Admission and Anticipated Discharge Date Admission Date: April 08, 2021 Subjective Seen in follow-up for ESRD. She feels better today. No shortness of breath. She is on oxygen by nasal cannula. She had dialysis yesterday Review of Systems Review of Systems: All other systems were reviewed and negative except as noted in HPI Physical Exam Physical Exam: General exam: Appears comfortable, no acute distress HEENT: Pupils are equal and reactive to light Neck: No JVD, neck is supple trachea is midline Respiratory system: Clear breath sounds bilaterally. Gastrointestinal: Abdomen is soft, non distended, non tender, bowel sounds are present CVS: Regular rate and rhythm. No murmurs, rubs or gallops Musculoskeletal: No joint or muscle tenderness Extremities: Non tender, no edema, peripheral pulses are present Neuro: Oriented, no tremors, no focal neurological deficits Skin: No rashes Results & Data ([facility]) Vital Signs (Past 12 Hours) Vital Signs Temp Pulse Pulse Resp BP Pulse Ox 04/11/21 07:42 36.7 C 87 20 114/65 93 04/11/21 07:17 103 H 04/11/21 04:30 36.8 C 104 H 18 91/55 L 95 Laboratory Results 04/11/21 08:41 04/11/21 08:41 Phosphorus 2.8
[2021-04-11] MEDS: cefTRIAXone SODIUM 2,000 MG in DEXTROSE 5% 50 ML IV SCH (12:25)
--- NOTE | 2021-04-11 12:51 | Hospitalist Progress Note ---
Date of Service April 11, 2021 Assessment & Plan (1) Acute respiratory failure with hypoxia: Plan: Secondary to fluid overload in setting of end-stage renal disease on dialysis. Improved and more euvolemic after ultrafiltration with 2 separate dialysis sessions. Continue Tuesday dialysis. Appreciate nephro input. Concern for possible pneumonia also present she is on day 5 of 5 of antibiotics to complete the course. (2) RLL pneumonia: Plan: Uncertain if pneumonia present but possible frm clinical picture and imaging. Receiving short 5 day course of antibiotics. (3) Volume overload: Plan: Improved/resolved with hemodialysis. Torsemide held on admission. Consider restarting soon. (4) Hypotension: Plan: Persistent hypotension noted. (5) Pleural effusion on right: Plan: Chronic issue, s/p thoracentesis earlier in the year revealing transudate. No repeat tap planned per pulm. (6) Systolic and diastolic CHF w/reduced LV function, NYHA class 4: Plan: NICM with known EF 25%. Chronically on torsemide as outpatient. Also lisinopril 2.5mg, held in hypotension (7) Hypothyroidism: Plan: Cont synthroid per home regimen. (8) Diabetes mellitus type 2, insulin dependent: Plan: Euglycemic on current inpatient regimen. (9) DVT prophylaxis: Plan: Heparin DNR/DNI Dispo-return to [facility] once stable from a breathing standpoint. [facility] Hospitalist Admission and Anticipated Discharge Date Admission Date: April 08, 2021 Subjective 80-year-old female on dialysis presented from the senior care after a syncopal episode as she was being prepared for dialysis. She was hypotensive in the ER with blood pressure in the 80s systolic. Chest x-ray revealed fluid overload/pulmonary edema. She was placed on BiPAP and was started on low-dose vasopressor. She was sent to the ICU with a PICC line on BiPAP. She was started on Rocephin and doxycycline for possible right lower lobe pneumonia and Levophed was weaned off. Shortness of breath was related to fluid overload in setting of systolic CHF. As she does not make significant urine, nephrology was consulted for management of fluid overload with hemodialysis. Regarding her syncopal episode the etiology was unclear but sepsis cannot be ruled out which is why she continued on broad-spectrum antibiotics. She was dialyzed on 04/08 with 3.7 kg removed. She was dialyzed again on 04/10 with 3.5 L removed successfully. She is overall doing well today and appears to be euvolemic with considerable improvement in her hemodynamics and oxygenation. She is tolerating p.o., denies any chest pain, abdominal pain or other issues. She reports being wheelchair-bound at baseline. some nonproductive cough present, jules with changing position. Review of Systems Review of Systems: All systems reviewed and negative except as indicated in the subjective above Physical Exam Physical Exam: CONSTITUTIONAL: WNWD, vitals as above, generally well- appearing, hard of hearing. EYES: normal conjunctivae, no scleral icterus ENT: external ear and nose normal, MMM NECK: trachea midline RESPIRATORY: clear to auscultation bilaterally, no crackles, rales or wheezes, normal respiratory effort CARDIOVASCULAR: regular rate and rhythm, S1 and 2 heard without murmurs, gallops or rubs, no JVD, no peripheral edema CHEST: inspection of chest was normal GASTROINTESTINAL: soft, nontender, ND, no guarding. MUSCULOSKELETAL: strength 5/5 throughout, head is normocephalic and atraumatic, neck supple, normal palpation of chest wall without tenderness SKIN: warm and dry, no rashes, palpable thrill in fistula on LUE. NEUROLOGIC: CN 2-12 grossly intact, no sensory deficit, normal cognition, normal speech, no tremor PSYCHIATRIC: alert cooperative and answering questions appropriately. Results & Data Results & Data ([facility]) Vital Signs (Past 12 Hours) Vital Signs Temp Pulse Pulse Resp BP Pulse Ox 04/11/21 12:03 36.7 C 100 H 20 107/68 98 04/11/21 07:42 36.7 C 87 20 114/65 93 04/11/21 07:17 103 H 04/11/21 04:30 36.8 C 104 H 18 91/55 L 95 Laboratory Results [facility] 04/11/21 08:41 Sodium 133 L Potassium 4.1 Chloride 98 Carbon Dioxide 26 BUN 27 H Creatinine 3.92 H D Glucose 163 H Calcium 9.0 Medications Administered Current Inpatient Medications Atorvastatin Calcium (Atorvastatin 10 Mg Tab) 10 mg PO HS YULIET Stop: 05/08/21 20:59 Last Admin: 04/10/21 23:19 Dose: 10 mg Documented by: Bisacodyl (Bisacodyl 10 Mg Supp) 10 mg NV DAILY PRN PRN Reason: Constipation Stop: 05/08/21 15:48 Calcium Carbonate (Calcium Carbonate 500 Mg Chewable Tab) 1,000 mg PO Q8 PRN PRN Reason: Heartburn Stop: 05/08/21 15:59 Gabapentin (Gabapentin 100 Mg Cap) 100 mg PO AMHS YULIET Stop: 05/08/21 20:59 Last Admin: 04/10/21 23:19 Dose: 100 mg Documented by: Guaifenesin/Dextromethorphan (Guaifenesin/Dextrom Syrup 200mg/20mg 10ml Udc) 10 ml PO Q6H PRN PRN Reason: Cough Stop: 05/08/21 16:22 Last Admin: 04/11/21 01:16 Dose: 10 ml Documented by: Heparin Sodium (Beef Lung) (Heparin 10 Unit/Ml 5 Ml Flush) 5 ml FLUSH PRN PRN PRN Reason: Flush Stop: 05/08/21 15:33 Heparin Sodium (Porcine) (Heparin Sod 5,000 Unit/0.5 Ml Vial) 5,000 units SQ Q12 YULIET Stop: 05/09/21 08:59 Last Admin: 04/11/21 08:53 Dose: 5,000 units Documented by: Ceftriaxone Sodium 2,000 mg/ (Dextrose) 70 mls @ 100 mls/hr IV Q24H [facility]; Protocol Stop: 04/12/21 13:41 Last Admin: 04/11/21 12:25 Dose: 100 mls/hr Documented by: Doxycycline Hyclate 100 mg/ (Dextrose) 110 mls @ 50 mls/hr IV Q12H [facility]; Protocol Stop: 04/13/21 03:11 Last Infusion: 04/11/21 03:24 Dose: Infused Documented by: Insulin Aspart (Insulin Aspart 100 Units/Ml 3 Ml Pen) 0 units SC ACHS [facility] Stop: 05/08/21 16:29 Last Admin: 04/11/21 12:24 Dose: 4 units Documented by: Insulin Glargine (Insulin Glargine Solostar 100 Units/Ml 3 Ml Pen) 5 units SC BID [facility] Stop: 05/11/21 08:59 Last Admin: 04/11/21 08:54 Dose: 5 units Documented by: Levothyroxine Sodium (Levothyroxine Sodium 75 Mcg Tablet) 75 mcg PO DAILY [facility] Stop: 05/09/21 08:59 Last Admin: 04/11/21 08:52 Dose: 75 mcg Documented by: Loratadine (Loratadine 10 Mg Tab) 5 mg PO DAILY YULIET Stop: 05/09/21 08:59 Last Admin: 04/11/21 08:53 Dose: 5 mg Documented by: Melatonin (Melatonin 3 Mg Tab) 6 mg PO HS PRN PRN Reason: Sleep Last Admin: 04/11/21 01:16 Dose: 6 mg Documented by: Montelukast Sodium (Montelukast Sodium 10 Mg Tablet) 10 mg PO DAILY YULIET Stop: 05/09/21 08:59 Last Admin: 04/11/21 08:53 Dose: 10 mg Documented by: Multivitamins/Minerals (Cerovite Adv Formula Tab) 1 tab PO DAILY YULIET Stop: 05/09/21 08:59 Last Admin: 04/11/21 08:52 Dose: 1 tab Documented by: Olanzapine (Olanzapine 10 Mg/2.1 Ml Sdv) 2.5 mg IM Q4H PRN PRN Reason: Anxiety/Agitation Stop: 05/11/21 01:53 Last Admin: 04/11/21 02:37 Dose: 2.5 mg Documented by: Pantoprazole Sodium (Pantoprazole 40 Mg Tab) 40 mg PO DAILY YULIET Stop: 05/09/21 08:59 Last Admin: 04/11/21 08:53 Dose: 40 mg Documented by: (1) Hypothyroidism Hypothyroidism type: acquired Qualified Code(s): E03.9 - Hypothyroidism, unspecified (2) Volume overload Hypervolemia type: other Qualified Code(s): E87.79 - Other fluid overload
[2021-04-11] MEDS: ATORVASTATIN 10 MG TAB PO SCH (20:50)
[2021-04-11] MEDS: ACETAMINOPHEN 325 MG TAB PO PRN (23:57)
[2021-04-12] MEDS: DOXYCYCLINE HYCLATE 100 MG in DEXTROSE 5% 100 ML IV SCH ×2 (01:11→13:02)
[2021-04-12] MEDS: LORATADINE 10 MG TAB PO SCH (08:04)
[2021-04-12] MEDS: PANTOprazole 40 MG TAB PO SCH (08:04)
[2021-04-12] MEDS: CEROVITE ADV FORMULA TAB PO SCH (08:04)
[2021-04-12] MEDS: MONTELUKAST SODIUM 10 MG TABLET PO SCH (08:05)
[2021-04-12] MEDS: LEVOTHYROXINE SODIUM 75 MCG TABLET PO SCH (08:05)
[2021-04-12] MEDS: HEPARIN SOD 5,000 UNIT/0.5 ML VIAL SQ SCH ×2 (08:05→20:19)
[2021-04-12] MEDS: INSULIN ASPART 100 UNITS/ML 3 ML PEN SC SCH ×4 (08:09→20:21)
[2021-04-12] MEDS: INSULIN GLARGINE SOLOSTAR 100 UNITS/ML 3 ML PEN SC SCH ×2 (08:11→20:21)
--- NOTE | 2021-04-12 09:37 | Nephrology Progress Note ---
Date of Service April 12, 2021 Assessment & Plan (1) End stage renal disease on dialysis: Plan: Patient with ESRD on dialysis Tuesday. She had dialysis Tuesday. She has a left AV fistula which is working well. Labs are stable and no signs of volume overload. No indication for dialysis today. -Next dialysis will be Tuesday for 3.5hrs and 3 litre UF Admission and Anticipated Discharge Date Admission Date: April 08, 2021 Subjective Seen in follow-up for ESRD. She feels better today. No shortness of breath. She is on oxygen by nasal cannula. She had dialysis tuesday Review of Systems Review of Systems: All other systems were reviewed and negative except as noted in HPI Physical Exam Physical Exam: General exam: Appears comfortable, no acute distress HEENT: Pupils are equal and reactive to light Neck: No JVD, neck is supple trachea is midline Respiratory system: Clear breath sounds bilaterally. Gastrointestinal: Abdomen is soft, non distended, non tender, bowel sounds are present CVS: Regular rate and rhythm. No murmurs, rubs or gallops Musculoskeletal: No joint or muscle tenderness Extremities: Non tender, no edema, peripheral pulses are present Neuro: Oriented, no tremors, no focal neurological deficits Skin: No rashes Access: left arm AVF, good bruit Results & Data ([facility]) Vital Signs (Past 12 Hours) Vital Signs Temp Pulse Pulse Pulse Resp BP Pulse Ox 04/12/21 07:42 36.4 C L 100 H 20 137/74 94 04/12/21 03:57 36.8 C 96 H 95 H 20 116/63 96 04/11/21 23:28 37 C 103 H 19 97/60 L 97 Laboratory Results 04/11/21 08:41
[2021-04-12] MEDS: COUGH DROP (SUGAR FREE) LOZ 24 LOZ/1 BOX BUCCAL PRN (11:03)
[2021-04-12] MEDS: cefTRIAXone SODIUM 2,000 MG in DEXTROSE 5% 50 ML IV SCH (13:02)
[2021-04-12] MEDS: guaiFENesin/DEXTROM SYRUP 200MG/20MG 10ML UDC PO PRN ×2 (14:43→22:48)
[2021-04-12] MEDS: ONDANSETRON INJ 2 MG/ML 2 ML VIAL IV PRN (15:45)
[2021-04-12] MEDS: ATORVASTATIN 10 MG TAB PO SCH (20:19)
--- NOTE | 2021-04-12 21:42 | Hospitalist Progress Note ---
Date of Service April 12, 2021 Assessment & Plan (1) Acute respiratory failure with hypoxia: Plan: Secondary to fluid overload in setting of end-stage renal disease on dialysis. Improved and more euvolemic after ultrafiltration with 2 separate dialysis sessions. Continue Tuesday dialysis. Appreciate nephro input. Concern for possible pneumonia completing short course of antibiotics. (2) RLL pneumonia: Plan: Uncertain if pneumonia present but possible from clinical picture and imaging. Receiving short 5 day course of antibiotics. (3) Volume overload: Plan: Improved/resolved with hemodialysis. Torsemide held on admission. Will plan to restart on TuThSaSu schedule which is the opposite day from her dialysis. Next dialysis session is tomorrow. Lasix this evening and cont UF removal in hemodialysis tomorrow. (4) Hypotension: Plan: Persistent hypotension noted. (5) Pleural effusion on right: Plan: Chronic issue, s/p thoracentesis earlier in the year revealing transudate. No repeat tap planned per pulm. (6) Systolic and diastolic CHF w/reduced LV function, NYHA class 4: Plan: NICM with known EF 25%. Chronically on torsemide as outpatient. Also lisinopril 2.5mg, held in hypotension (7) Hypothyroidism: Plan: Cont synthroid per home regimen. (8) Diabetes mellitus type 2, insulin dependent: Plan: Euglycemic on current inpatient regimen. (9) DVT prophylaxis: Plan: Heparin DNR/DNI Dispo-return to [facility] once stable from a breathing standpoint. [facility] Hospitalist Admission and Anticipated Discharge Date Admission Date: April 08, 2021 Subjective 80-year-old female on dialysis presented from the [facility] after a syncopal episode as she was being prepared for dialysis. She was hypotensive in the ER with blood pressure in the 80s systolic. Chest x-ray revealed fluid overload/pulmonary edema. She was placed on BiPAP and was started on low-dose vasopressor. She was sent to the ICU with a PICC line on BiPAP. She was started on Rocephin and doxycycline for possible right lower lobe pneumonia and Levophed was weaned off. Shortness of breath was related to fluid overload in setting of systolic CHF. As she does not make significant urine, nephrology was consulted for management of fluid overload with hemodialysis. Regarding her syncopal episode the etiology was unclear but sepsis cannot be ruled out which is why she continued on broad-spectrum antibiotics. She was dialyzed on 04/08 with 3.7 kg removed. She was dialyzed again on 04/10 with 3.5 L removed successfully. She is doing well off oxygen today. Patient and nurse report she is ambulating to the bathroom and doing well overall despite being labeled as wheelchair bound. Patient experienced some post-prandial nausea after lunch today and received antiemetics. She did not vomit and states she has been nauseous moreso in the past week. (?doxy involvement in this) Review of Systems 2 Review of Systems: All systems reviewed and negative except as indicated in the subjective above Physical Exam Physical Exam: CONSTITUTIONAL: WNWD, vitals as above, generally well- appearing, hard of hearing. EYES: normal conjunctivae, no scleral icterus ENT: external ear and nose normal, MMM NECK: trachea midline RESPIRATORY: clear to auscultation bilaterally, no crackles, rales or wheezes, normal respiratory effort CARDIOVASCULAR: regular rate and rhythm, S1 and 2 heard without murmurs, gallops or rubs, no JVD, no peripheral edema CHEST: inspection of chest was normal GASTROINTESTINAL: soft, nontender, ND, no guarding. MUSCULOSKELETAL: strength 5/5 throughout, head is normocephalic and atraumatic, neck supple, normal palpation of chest wall without tenderness SKIN: warm and dry, no rashes, palpable thrill in fistula on LUE. NEUROLOGIC: CN 2-12 grossly intact, no sensory deficit, normal cognition, normal speech, no tremor PSYCHIATRIC: alert cooperative and answering questions appropriately. Results & Data Results & Data ([facility]) Vital Signs (Past 12 Hours) Vital Signs Temp Pulse Resp BP Pulse Ox 04/12/21 19:28 36.5 C 107 H 18 91/55 L 90 04/12/21 14:21 36.8 C 107 H 20 136/69 90 04/12/21 11:15 36.7 C 109 H 18 134/62 90 Medications Administered Current Inpatient Medications Acetaminophen (Acetaminophen 325 Mg Tab) 325 mg PO Q6H PRN PRN Reason: Mild Pain Stop: 05/11/21 23:49 Last Admin: 04/11/21 23:57 Dose: 325 mg Documented by: Atorvastatin Calcium (Atorvastatin 10 Mg Tab) 10 mg PO HS YULIET Stop: 05/08/21 20:59 Last Admin: 04/12/21 20:19 Dose: 10 mg Documented by: Bisacodyl (Bisacodyl 10 Mg Supp) 10 mg NE DAILY PRN PRN Reason: Constipation Stop: 05/08/21 15:48 Calcium Carbonate (Calcium Carbonate 500 Mg Chewable Tab) 1,000 mg PO Q8 PRN PRN Reason: Heartburn Stop: 05/08/21 15:59 Last Admin: 04/12/21 12:30 Dose: 1,000 mg Documented by: Furosemide (Furosemide 40 Mg/4 Ml Vial) 40 mg IV ONE ONE Stop: 04/12/21 21:46 Gabapentin (Gabapentin 100 Mg Cap) 100 mg PO [facility] Stop: 05/08/21 20:59 Last Admin: 04/10/21 23:19 Dose: 100 mg Documented by: Guaifenesin/Dextromethorphan (Guaifenesin/Dextrom Syrup 200mg/20mg 10ml Udc) 10 ml PO Q6H PRN PRN Reason: Cough Stop: 05/08/21 16:22 Last Admin: 04/12/21 14:43 Dose: 10 ml Documented by: Heparin Sodium (Beef Lung) (Heparin 10 Unit/Ml 5 Ml Flush) 5 ml FLUSH PRN PRN PRN Reason: Flush Stop: 05/08/21 15:33 Heparin Sodium (Porcine) (Heparin Sod 5,000 Unit/0.5 Ml Vial) 5,000 units SQ Q12 YULIET Stop: 05/09/21 08:59 Last Admin: 04/12/21 20:19 Dose: 5,000 units Documented by: Doxycycline Hyclate 100 mg/ (Dextrose) 110 mls @ 50 mls/hr IV Q12H [facility]; Protocol Stop: 04/13/21 03:11 Last Infusion: 04/12/21 15:21 Dose: Infused Documented by: Insulin Aspart (Insulin Aspart 100 Units/Ml 3 Ml Pen) 0 units SC ACHS [facility] Stop: 05/08/21 16:29 Last Admin: 04/12/21 20:21 Dose: Not Given Documented by: Insulin Glargine (Insulin Glargine Solostar 100 Units/Ml 3 Ml Pen) 5 units SC BID [facility] Stop: 05/11/21 08:59 Last Admin: 04/12/21 20:21 Dose: 5 units Documented by: Levothyroxine Sodium (Levothyroxine Sodium 75 Mcg Tablet) 75 mcg PO DAILY YULIET Stop: 05/09/21 08:59 Last Admin: 04/12/21 08:05 Dose: 75 mcg Documented by: Loratadine (Loratadine 10 Mg Tab) 5 mg PO DAILY YULIET Stop: 05/09/21 08:59 Last Admin: 04/12/21 08:04 Dose: 5 mg Documented by: Melatonin (Melatonin 3 Mg Tab) 6 mg PO HS PRN PRN Reason: Sleep Last Admin: 04/11/21 01:16 Dose: 6 mg Documented by: Menthol (Cough Drop (Sugar Free) Gui 24 Gui/1 Box) 1 gui BUCCAL PRN PRN PRN Reason: Sore Throat Stop: 05/12/21 10:05 Last Admin: 04/12/21 11:03 Dose: 1 gui Documented by: Metoprolol Tartrate (Metoprolol Tartrate 25 Mg Tab) 37.5 mg PO DAILY [facility] Stop: 05/13/21 08:59 Metoprolol Tartrate (Metoprolol Tartrate 25 Mg Tab) 12.5 mg PO ONE ONE Stop: 04/12/21 21:46 Montelukast Sodium (Montelukast Sodium 10 Mg Tablet) 10 mg PO DAILY YULIET Stop: 05/09/21 08:59 Last Admin: 04/12/21 08:05 Dose: 10 mg Documented by: Multivitamins/Minerals (Cerovite Adv Formula Tab) 1 tab PO DAILY YULIET Stop: 05/09/21 08:59 Last Admin: 04/12/21 08:04 Dose: 1 tab Documented by: Olanzapine (Olanzapine 10 Mg/2.1 Ml Sdv) 2.5 mg IM Q4H PRN PRN Reason: Anxiety/Agitation Stop: 05/11/21 01:53 Last Admin: 04/11/21 02:37 Dose: 2.5 mg Documented by: Ondansetron HCl (Ondansetron Inj 2 Mg/Ml 2 Ml Vial) 4 mg IV Q8H PRN PRN Reason: n/v Stop: 05/12/21 15:44 Last Admin: 04/12/21 15:45 Dose: 4 mg Documented by: Pantoprazole Sodium (Pantoprazole 40 Mg Tab) 40 mg PO DAILY YULIET Stop: 05/09/21 08:59 Last Admin: 04/12/21 08:04 Dose: 40 mg Documented by: Torsemide (Torsemide 20 Mg Tab) 20 mg PO Monika@[id number] [facility] Stop: 05/14/21 08:59 (1) Volume overload Hypervolemia type: other Qualified Code(s): E87.79 - Other fluid overload (2) Hypothyroidism Hypothyroidism type: acquired Qualified Code(s): E03.9 - Hypothyroidism, unspecified
[2021-04-12] MEDS ORDERED: METOPROLOL TARTRATE 25 MG TAB PO ONE (21:45)
[2021-04-12] MEDS ORDERED: FUROSEMIDE 40 MG/4 ML VIAL IV ONE (21:45)
[2021-04-12] MEDS: ACETAMINOPHEN 325 MG TAB PO PRN (23:42)
[2021-04-13] MEDS: DOXYCYCLINE HYCLATE 100 MG in DEXTROSE 5% 100 ML IV SCH (00:41)
[2021-04-13] MEDS: guaiFENesin/DEXTROM SYRUP 200MG/20MG 10ML UDC PO PRN ×2 (03:11→21:25)
[2021-04-13] MEDS: ONDANSETRON INJ 2 MG/ML 2 ML VIAL IV PRN (03:14)
[2021-04-13] MEDS ORDERED: METOCLOPRAMIDE HCL INJ 5 MG/ML 2 ML VIAL IV PRN ×2 (05:06→06:57)
--- NOTE | 2021-04-13 05:09 | Communication Note ---
Date of Service: April 13, 2021 Notified by RN of patient abdominal pain 5/10, postprandial nausea/emesis. Coughing episode for few days. Earlier communicated to AM provider as per RN. AP Abdominal pain, nausea vomiting rule out obstruction Cough ruled aspiration N.p.o. for now CT abdomen pelvis Chest x-ray Will relay to AM provider.
[2021-04-13 05:57] LABS: Basophils # (auto) 0.05 K/uL (0-0.2); Basophils % (auto) 0.9 %; Eosinophils # (auto) 0.21 K/uL (0-0.5); Eosinophils % (auto) 3.8 %; Hematocrit (blood only) 32.8 % (37-47); Hemoglobin 10.7 g/dL (12.0-16.0); Immature Granulocytes # (auto) 0.01 K/uL (0.00-0.02); Immature Granulocytes % (auto) 0.2 %; Lymphocytes # (auto) 0.76 K/uL (1.2-3.4); Lymphocytes % (auto) 13.6 %; Mean Corpuscular Hemoglobin 34.6 pg (25-34); Mean Corpuscular Hgb Conc 32.6 g/dL (32-36); Mean Corpuscular Volume 106.1 fL (80-100); Mean Platelet Volume 10.1 fL (7.4-10.4); Monocytes # (auto) 0.82 K/uL (0.11-0.59); Monocytes % (auto) 14.7 %; Neutrophils # (auto) 3.72 K/uL (1.4-6.5); Neutrophils % (auto) 66.8 %; Platelet Count 140 K/uL (130-400); RDW Coefficient of Variation 14.8 % (11.5-14.5); Red Blood Count 3.09 M/uL (4.2-5.4); White Blood Count 5.57 K/uL (4.8-10.8)
[2021-04-13 06:42] LABS: Albumin Globulin Ratio 0.7 (0.9-2); BUN Creatinine Ratio 8.4 (10-20); Bilirubin,Total 0.9 mg/dl (0.2-1); Creatinine Clr Calc Pharmacy 8.9 ml/min; Est GFR (African American) 7.9 ml/min; Est GFR (Non-African American) 6.8 ml/min; Globulin 4.4 gm/dl (2.5-4.0); Magnesium 1.7 mg/dl (1.8-2.4); Potassium 4.3 mmol/L (3.5-5.1); Total Protein 7.4 gm/dl (6.4-8.2)
[2021-04-13] MEDS ORDERED: METOCLOPRAMIDE HCL INJ 5 MG/ML 2 ML VIAL IV ONE (06:56)
[2021-04-13] MEDS ORDERED: MAGNESIUM SULFATE / D5W 1 GM/100 ML BAG IV ONE (06:56)
--- NOTE | 2021-04-13 08:11 | XRay Report ---
XR chest 1V portable CLINICAL HISTORY: Cough. COMPARISON STUDY: Chest radiograph no April 08, 2021. FINDINGS: Right PICC is in place. There is no pneumothorax. Moderate right pleural effusion is noted. Associated right lung airspace opacity is noted. Right lung aeration is slightly improved. Cardiomed iastinal silhouette is stable. There is no evidence for pulmonary edema. IMPRESSION: Moderate right pleural effusion with associated airspace opacity. Mild interval improvement in right lung aeration since prior exam. ACT 112: Negative or not required by law. Electronically signed by: Cody Tomlinson M.D. 04/13/2021 8:10 AM
[2021-04-13] MEDS: HEPARIN SOD 5,000 UNIT/0.5 ML VIAL SQ SCH ×2 (08:19→21:10)
[2021-04-13] MEDS: INSULIN ASPART 100 UNITS/ML 3 ML PEN SC SCH ×4 (08:25→21:14)
[2021-04-13] MEDS: METOPROLOL TARTRATE 25 MG TAB PO SCH ×2 (08:26→08:35)
[2021-04-13] MEDS: LORATADINE 10 MG TAB PO SCH (08:27)
[2021-04-13] MEDS: LEVOTHYROXINE SODIUM 75 MCG TABLET PO SCH (08:28)
[2021-04-13] MEDS: CEROVITE ADV FORMULA TAB PO SCH (08:28)
[2021-04-13] MEDS: PANTOprazole 40 MG TAB PO SCH (08:28)
[2021-04-13] MEDS: MONTELUKAST SODIUM 10 MG TABLET PO SCH (08:29)
[2021-04-13] MEDS: INSULIN GLARGINE SOLOSTAR 100 UNITS/ML 3 ML PEN SC SCH ×2 (08:40→21:11)
--- NOTE | 2021-04-13 09:09 | CT Scan Report ---
CT abd pelvis wo con CLINICAL HISTORY: Upper and mid abdominal pain COMPARISON STUDY: 08/15/2020 CT DOSE: 1134.32 mGy.cm TECHNIQUE: Standard CT of the Abdomen and Pelvis was performed without IV contrast. The patient did not receive oral contrast. A dose lowering technique was utilized adhering to the principles of MAREK Adams. FINDINGS: Lung base: There is again evidence for moderate, probably loculated pleural effusion with atelectasi s/collapse involving the right lower lobe. Findings appears essentially unchanged. The left lung base is clear. Abdominal cavity: There is no evidence for abdominal mass, adenopathy or ascites. There is again evid ence for mild anasarca. Liver: The liver is homogeneous in attenuation on these limited noncontrast images.. Spleen: The spleen is homogeneous in attenuation on these limited noncontrast images. Pancreas: The pancreas is homogeneous in attenuation on these limited noncontrast images. Gall Bladder: The gallbladder is again distended with cholelithiasis. There is no CT evidence for acu te cholecystitis. Adrenal glands: The adrenal glands are normal in size and attenuation on these limited noncontrast im ages. Kidneys: There is again mild decreased size of the left kidney when compared to the right. Mild chron ic perinephric stranding is again seen. There is again evidence for renal vascular calcification with no obstructing calculi or hydronephrosis. There is no gross renal mass on these limited noncontrast images. Bowel: There is gastric mucosal thickening which is most likely related to nondistention. The bowel l oops are otherwise normally placed within the abdomen and pelvis. There is no evidence for mass lesio n. There are no inflammatory changes present. There is no evidence for free air. Is no evidence for a n inflamed appendix. Bladder: There is no evidence for focal bladder wall thickening, calculus or diverticulum. : There is no evidence for pelvic mass or adenopathy. An enlarged calcified fibroid uterus again se en. Vasculature: There is no evidence for focal aneurysmal dilatation of the abdominal aorta. Mild atelec tatic calcification is present. There is dilatation of the IVC again seen. Osseous structures: There is no acute osseous pathology. Extensive degenerative changes are again see n within the lumbar spine. IMPRESSION: 1. Compared to previous examination, there is again moderate right pleural effusion with right lower lobe atelectasis/collapse, essentially unchanged. 2. There is again evidence for cholelithiasis with no CT evidence for acute cholecystitis. 3. Otherwise, no acute intra-abdominal or pelvic abnormality on these limited noncontrast images. 4. Additional nonacute findings are again delineated above. ACT 112: Negative or not required by law. Electronically signed by: Preston Kay M.D. 04/13/2021 9:08 AM
--- NOTE | 2021-04-13 15:16 | Dialysis Progress Note ---
Date of Service April 13, 2021 Assessment & Plan (1) End stage renal disease on dialysis: Plan: ESRD on dialysis Tuesday. tolerated dialysis today 3.5hr ;report of UF pending, goal was 3L . next tx 04/15. She has a left AV fistula which is working well. Labs are stable except for worsening hyponatremia, which may reflect mild volume overload. -cont pneumonia care, eval of abd pain per primary service Admission and Anticipated Discharge Date Admission Date: April 08, 2021 Subjective seen on dialysis at about 1130 today; restless on tx but denies pain, cramping, worsening sob. had ct ab/pelvis for post prandial n/v, abd pain this am; no c/o these to me (diet resumed w/ lunch) Review of Systems Review of Systems: All systems reviewed & are unremarkable except as noted in Subjective Physical Exam Constitutional: well developed, well nourished, + obese and cooperative; no acute distress and + uncomfortable (restless on tx ) Eyes: EOM intact bilaterally ENMT: Ears: no external ear abnormality Nose: no external nose abnormality Mouth: + dry oral mucous membranes Neck: no nuchal rigidity Respiratory: normal respiratory effort and + cough (paroxysms of cough) Auscultation: + diminished lung sounds (no obvious difference one side versus other) Cardiovascular: Rate/Rhythm: regular rate and regular rhythm Heart Sounds: normal S1 and normal S2 Extremities: + AV fistula (+t/b); no edema Gastrointestinal (Abdomen): Inspection/Auscultation: normal bowel sounds Percussion/Palpation: abdomen soft; abdomen nontender Musculoskeletal: generalized weakness Skin: no rashes, warm and dry Neurologic: rae, fluent speech, no tremor Psychiatric: Orientation: oriented x 3 Results & Data ([facility]) Vital Signs (Past 12 Hours) Vital Signs Temp Pulse Pulse Pulse Resp BP BP 04/13/21 11:30 66 111/83 04/13/21 11:00 67 133/63 04/13/21 10:30 88 117/58 L 04/13/21 10:00 85 135/46 L 04/13/21 09:40 88 133/55 L 04/13/21 09:20 91 H 108/52 L 04/13/21 09:04 96 H 114/60 04/13/21 08:57 36.5 C 92 H 04/13/21 08:18 36.5 C 89 16 121/62 04/13/21 04:33 89 04/13/21 03:56 36.6 C 87 18 116/64 Pulse Ox 04/13/21 11:30 04/13/21 11:00 04/13/21 10:30 04/13/21 10:00 04/13/21 09:40 04/13/21 09:20 04/13/21 09:04 04/13/21 08:57 04/13/21 08:18 99 04/13/21 04:33 04/13/21 03:56 95 Laboratory Results 04/13/21 05:26 04/13/21 05:26
[2021-04-13] MEDS: ATORVASTATIN 10 MG TAB PO SCH (21:11)
[2021-04-13 23:39] LABS: Albumin Level 2.9 gm/dl (3.4-5.0); BUN Creatinine Ratio 6.3 (10-20); Calcium 8.7 mg/dl (8.5-10.1); Creatinine Clr Calc Pharmacy 12.4 ml/min; Est GFR (African American) 11.8 ml/min; Est GFR (Non-African American) 10.2 ml/min
[2021-04-13 23:44] LABS: Albumin Globulin Ratio 0.7 (0.9-2); Bilirubin,Total 0.9 mg/dl (0.2-1); Globulin 4.3 gm/dl (2.5-4.0); Total Protein 7.2 gm/dl (6.4-8.2)
[2021-04-14] MEDS: OLANZapine 10 MG/2.1 ML SDV IM PRN (00:23)
[2021-04-14] MEDS: ONDANSETRON INJ 2 MG/ML 2 ML VIAL IV PRN (01:59)
[2021-04-14] MEDS: LORATADINE 10 MG TAB PO SCH (08:36)
[2021-04-14] MEDS: PANTOprazole 40 MG TAB PO SCH (08:37)
[2021-04-14] MEDS: MONTELUKAST SODIUM 10 MG TABLET PO SCH (08:37)
[2021-04-14] MEDS: TORSEMIDE 20 MG TAB PO SCH (08:38)
[2021-04-14] MEDS: LEVOTHYROXINE SODIUM 75 MCG TABLET PO SCH (08:39)
[2021-04-14] MEDS: CEROVITE ADV FORMULA TAB PO SCH (08:39)
[2021-04-14] MEDS: METOPROLOL TARTRATE 25 MG TAB PO SCH (08:39)
[2021-04-14] MEDS: INSULIN ASPART 100 UNITS/ML 3 ML PEN SC SCH ×4 (08:46→21:32)
[2021-04-14] MEDS: HEPARIN SOD 5,000 UNIT/0.5 ML VIAL SQ SCH ×2 (08:46→21:27)
[2021-04-14] MEDS: INSULIN GLARGINE SOLOSTAR 100 UNITS/ML 3 ML PEN SC SCH ×2 (08:46→21:32)
[2021-04-14] MEDS ORDERED: TORSEMIDE 20 MG TAB PO SCH (09:00)
--- NOTE | 2021-04-14 13:21 | Hospitalist Progress Note ---
Date of Service April 13, 2021 Assessment & Plan (1) Acute respiratory failure with hypoxia: Plan: Secondary to fluid overload in setting of end-stage renal disease on dialysis. Appreciate nephrology input. New with routine dialysis Tuesday///Tuesday. Hyponatremia is improved. (2) RLL pneumonia: Plan: Patient completed course of antibiotic therapy. (3) Volume overload: Plan: Improved/resolved with hemodialysis. Torsemide held on admission. Will plan to restart on TuThSaSu schedule which is the opposite day from her dialysis. (4) Hypotension: Plan: Persistent hypotension noted. (5) Pleural effusion on right: Plan: Chronic issue, s/p thoracentesis earlier in the year revealing transudate. No repeat tap planned per pulm. (6) Systolic and diastolic CHF w/reduced LV function, NYHA class 4: Plan: NICM with known EF 25%. Chronically on torsemide as outpatient. Also lisinopril 2.5mg, held in hypotension (7) Hypothyroidism: Plan: Cont synthroid per home regimen. (8) Diabetes mellitus type 2, insulin dependent: Plan: Euglycemic on current inpatient regimen. Nausea/vomiting/abdominal pain CT abdomen/pelvis was obtained however it was negative for any acute findings. Her symptoms resolved. Was started back on diet. (9) DVT prophylaxis: Plan: Heparin DNR/DNI Dispo-return to [facility] once stable from a breathing standpoint. Admission and Anticipated Discharge Date Admission Date: April 08, 2021 Subjective Overnight patient was experiencing nausea, vomiting and abdominal pain. She was made NPO. Today she was seen post dialysis. Overall doing okay. Awake and alert. No new complaints. No furtherepisodes of nausea or vomiting post dialysis. Review of Systems Review of Systems: All systems reviewed & are unremarkable except as noted in HPI & below Physical Exam Physical Exam: General: Awake and alert, chronically ill-appearing female HENT: NCAT, MMM, EOMI Eyes: PERRLA Neck: Supple, normal range of motion CVS: normal rate and rhythm Resp: b/l decreased breath sounds Abdomen: Soft, nondistended and nontender Extremities: No c/c/e Neuro: face symmetric, no gross focal deficit appreciated Skin: warm and dry MSK: no joint swelling/erythema Results & Data Results & Data ([facility]) Vital Signs (Past 12 Hours) Vital Signs Temp Pulse Pulse Pulse Resp BP Pulse Ox 04/14/21 10:53 36.4 C L 65 18 87/54 L 93 04/14/21 07:52 36.7 C 111 H 20 114/60 94 04/14/21 07:23 107 H 04/14/21 02:44 36.6 C 108 H 20 118/58 L 96 (1) Volume overload Hypervolemia type: other Qualified Code(s): E87.79 - Other fluid overload (2) Hypothyroidism Hypothyroidism type: acquired Qualified Code(s): E03.9 - Hypothyroidism, unspecified
--- NOTE | 2021-04-14 13:24 | Hospitalist Progress Note ---
Date of Service April 14, 2021 Assessment & Plan (1) Acute respiratory failure with hypoxia: Plan: Secondary to fluid overload in setting of end-stage renal disease on dialysis. Appreciate nephrology input. New with routine dialysis Tuesday/Tuesday/Tuesday. Hyponatremia is improved. Continue to monitor daily BMP. Plan to proceed with dialysis session tomorrow. (2) RLL pneumonia: Plan: Patient completed course of antibiotic therapy. (3) Volume overload: Plan: Improved/resolved with hemodialysis. Torsemide held on admission. Will plan to restart on TuThSaSu schedule which is the opposite day from her dialysis. (4) Hypotension: Plan: Persistent hypotension noted. (5) Pleural effusion on right: Plan: Chronic issue, s/p thoracentesis earlier in the year revealing transudate. No repeat tap planned per pulm. (6) Systolic and diastolic CHF w/reduced LV function, NYHA class 4: Plan: NICM with known EF 25%. Chronically on torsemide as outpatient. Also lisinopril 2.5mg, held in hypotension. Does have persistent pleural effusion. Continue with the [employer] torsemide 80 mg on Tuesday/Tuesday//Tuesday. (7) Hypothyroidism: Plan: Cont synthroid per home regimen. (8) Diabetes mellitus type 2, insulin dependent: Plan: Euglycemic on current inpatient regimen. Nausea/vomiting/abdominal pain -resolved CT abdomen/pelvis was obtained however it was negative for any acute findings. Her symptoms resolved. Was started back on diet. Delirium Patient was found to be confused overnight. Currently she is with a sitter. We will obtain routine labs. Recommend frequent orientation. (9) DVT prophylaxis: Plan: Heparin DNR/DNI Dispo-return to [facility] once stable from a breathing standpoint. Admission and Anticipated Discharge Date Admission Date: April 08, 2021 Subjective Patient was confused overnight and had to be placed with a sitter. This morning she was awake and alert however she was pleasantly confused. On 6 L of nasal cannula. Denies feeling short of breath, nausea, vomiting or abdominal pain. Not obtain full review of system as patient was confused. Review of Systems Review of Systems: Unobtainable due to cognitive status Physical Exam Physical Exam: General: Awake and alert, chronically ill-appearing female HENT: NCAT, MMM, EOMI Eyes: PERRLA Neck: Supple, normal range of motion CVS: normal rate and rhythm Resp: b/l decreased breath sounds Abdomen: Soft, nondistended and nontender Extremities: No c/c/e Neuro: face symmetric, no gross focal deficit appreciated Skin: warm and dry MSK: no joint swelling/erythema Results & Data Results & Data ([facility]) Vital Signs (Past 12 Hours) Vital Signs Temp Pulse Pulse Pulse Resp BP Pulse Ox 04/14/21 10:53 36.4 C L 65 18 87/54 L 93 04/14/21 07:52 36.7 C 111 H 20 114/60 94 04/14/21 07:23 107 H 04/14/21 02:44 36.6 C 108 H 20 118/58 L 96 (1) Volume overload Hypervolemia type: other Qualified Code(s): E87.79 - Other fluid overload (2) Hypothyroidism Hypothyroidism type: acquired Qualified Code(s): E03.9 - Hypothyroidism, unspecified
[2021-04-14 14:13] LABS: Basophils # (auto) 0.08 K/uL (0-0.2); Basophils % (auto) 1.5 %; Eosinophils # (auto) 0.03 K/uL (0-0.5); Eosinophils % (auto) 0.6 %; Hematocrit (blood only) 32.4 % (37-47); Hemoglobin 10.5 g/dL (12.0-16.0); Lymphocytes # (auto) 0.84 K/uL (1.2-3.4); Lymphocytes % (auto) 15.5 %; Mean Corpuscular Hemoglobin 34.4 pg (25-34); Mean Corpuscular Hgb Conc 32.4 g/dL (32-36); Mean Corpuscular Volume 106.2 fL (80-100); Mean Platelet Volume 9.8 fL (7.4-10.4); Monocytes # (auto) 0.52 K/uL (0.11-0.59); Monocytes % (auto) 9.6 %; Neutrophils # (auto) 3.96 K/uL (1.4-6.5); Neutrophils % (auto) 72.8 %; Platelet Count 121 K/uL (130-400); RDW Coefficient of Variation 15.3 % (11.5-14.5); RDW Standard Deviation 57.7 fL (36.4-46.3); Red Blood Count 3.05 M/uL (4.2-5.4); White Blood Count 5.43 K/uL (4.8-10.8)
[2021-04-14 14:49] LABS: Albumin Globulin Ratio 0.7 (0.9-2); Albumin Level 2.9 gm/dl (3.4-5.0); BUN Creatinine Ratio 7.2 (10-20); Bilirubin,Total 1.1 mg/dl (0.2-1); Calcium 9.1 mg/dl (8.5-10.1); Creatinine Clr Calc Pharmacy 10.5 ml/min; Est GFR (African American) 9.6 ml/min; Est GFR (Non-African American) 8.3 ml/min; Globulin 4.3 gm/dl (2.5-4.0); Potassium 4.3 mmol/L (3.5-5.1); Total Protein 7.2 gm/dl (6.4-8.2)
[2021-04-14] MEDS ORDERED: XOPENEX/ATROVENT 1.25mg/0.5MG NEB COMBO NEB STA (20:07)
[2021-04-14] MEDS ORDERED: METOCLOPRAMIDE HCL INJ 5 MG/ML 2 ML VIAL IV PRN (20:13)
[2021-04-14] MEDS ORDERED: PIPERACILL/TAZOBAC CONSULT ACTIVE PRN (20:13)
--- NOTE | 2021-04-14 20:14 | Communication Note ---
Date of Service: April 14, 2021 806 PM Patient uncomfortable and saying it is hard to breathe as per RN. Expiratory wheezing as per RN. O2 sats 96 on 6 L Chest x-ray as per my interpretation consolidation right with increased pleural effusion AP Worsening respiratory failure secondary to right-sided complicated pneumonia given increasing pleural effusion Possible aspiration given nausea/emesis symptoms from 2 days ago Supplemental O2 Check ABG Zosyn Nebs, Solu-Medrol for expiratory wheezing causing bronchospasm Continue aspiration precautions [employer] eval Will request AM provider to re-contact Pulmonology service regarding pleural effusion if patient family interested in intervention.
[2021-04-14] MEDS ORDERED: methylPREDNISolone 20 MG in SYRINGE 0 ML IV STA (20:19)
[2021-04-14] MEDS ORDERED: LEVALBUTEROL 1.25MG/0.5ML NEB INH STA (20:20)
[2021-04-14] MEDS ORDERED: IPRATROPIUM BROMIDE NEB SOLN 0.02% 2.5 ML VIAL INH STA (20:20)
[2021-04-14] MEDS ORDERED: MAGNESIUM SULFATE / D5W 1 GM/100 ML BAG IV ONE (20:30)
[2021-04-14] MEDS ORDERED: PIPERACILLIN/TAZOBACTAM 3.375 GM in DEXTROSE 5% 100 ML IV ONE (20:45)
[2021-04-14] MEDS: ATORVASTATIN 10 MG TAB PO SCH (21:27)
[2021-04-14 21:31] LABS: iSTAT Art Bld Gas pCO2 Correct 58 mmHg (35-46); iSTAT Art Bld Gas pH Corrected 7.321 (7.35-7.45); iSTAT Arterial Blood Gas HCO3 30 meg/L (19-24); iSTAT Arterial Blood Gas pCO2 58 mmHg (35-46); iSTAT Arterial Blood Gas pH 7.32 (7.35-7.45); iSTAT Arterial Blood Gas pO2 83 mmHg (80-95); iSTAT Arterial Blood Gas pO2 C 82; iSTAT Carbon Dioxide 32 mmol/L (24-31); iSTAT Hematocrit 32 % (37-47); iSTAT Hemoglobin 10.9 g/dl (12.0-16.0); iSTAT Potassium 4.5 mmol/L (3.3-5.0); iSTAT Site R Brachial; iSTAT Sodium 131 mmol/L (135-144)
[2021-04-14] MEDS: ACETAMINOPHEN 325 MG TAB PO PRN (22:14)
[2021-04-15] MEDS: PIPERACILLIN/TAZOBACTAM 3.375 GM in DEXTROSE 5% 100 ML IV SCH ×2 (04:01→14:56)
--- NOTE | 2021-04-15 07:26 | XRay Report ---
XR chest 1V portable CLINICAL HISTORY: sob. COMPARISON STUDY: 04/13/2021 TECHNIQUE: 1 view of the chest FINDINGS: Single frontal view of the chest demonstrates the heart size to again be enlarged. Compared to previo us examination, the patient appears to be in a slightly more supine position with increase in right p leural effusion and right lower lobe lung opacity. The left hemithorax remains clear. There is no lef t pleural effusion. There is no evidence for vascular congestion. There is no acute osseous pathology . IMPRESSION: Interval increase in moderately large right pleural effusion which is most likely related to slightly more supine positioning. Right lower lobe airspace opacities again seen and unchanged. ACT 112: Negative or not required by law. Electronically signed by: Preston Kay M.D. 04/15/2021 7:25 AM
[2021-04-15] MEDS: LEVOTHYROXINE SODIUM 75 MCG TABLET PO SCH ×2 (07:28→07:44)
[2021-04-15] MEDS: METOPROLOL TARTRATE 25 MG TAB PO SCH ×2 (07:29→07:45)
[2021-04-15] MEDS: MONTELUKAST SODIUM 10 MG TABLET PO SCH ×2 (07:29→07:45)
[2021-04-15] MEDS: HEPARIN SOD 5,000 UNIT/0.5 ML VIAL SQ SCH ×2 (07:30→20:27)
[2021-04-15] MEDS: PANTOprazole 40 MG TAB PO SCH ×2 (07:30→07:46)
[2021-04-15] MEDS: LORATADINE 10 MG TAB PO SCH ×2 (07:32→07:42)
[2021-04-15] MEDS: CEROVITE ADV FORMULA TAB PO SCH ×2 (07:33→07:45)
[2021-04-15] MEDS ORDERED: SODIUM CHLORIDE 0.9% 1000ML 1,000 ML IV PRN (07:54)
[2021-04-15] MEDS ORDERED: ALBUMIN 25% 12.5 GM/50 ML VIAL IV SCH (08:00)
[2021-04-15] MEDS: INSULIN GLARGINE SOLOSTAR 100 UNITS/ML 3 ML PEN SC SCH ×2 (08:00→21:02)
[2021-04-15] MEDS ORDERED: HEPARIN SOD (PORCINE) 1000 UNIT/ML IV ONE (08:00)
[2021-04-15] MEDS: INSULIN ASPART 100 UNITS/ML 3 ML PEN SC SCH ×4 (08:00→20:26)
[2021-04-15] MEDS: HEPARIN SOD (PORCINE) 1000 UNIT/ML IV SCH ×2 (10:28→12:24)
--- NOTE | 2021-04-15 13:50 | Pulmonology Progress Note ---
Date of Service April 15, 2021 Assessment & Plan (1) Pleural effusion due to CHF (congestive heart failure): (2) End stage renal disease on dialysis: (3) CHF (congestive heart failure): Heart failure chronicity: acute on chronic Heart failure type: unspecified Qualified Code(s): I50.9 - Heart failure, unspecified Plan: Impression: 80-year-old female with end-stage renal disease on dialysis and cardiomyopathy with an EF of 25% with recurrent right-sided pleural effusion. The patient underwent thoracentesis back in July. Unfortunately at that time her procedure was complicated by hemothorax requiring transfer to [facility] and chest tube placement. She was admitted 04/08 with a syncopal event during dialysis related to hypotension and initially required to stay in the ICU. She declined intubation or life-sustaining therapy at that time but was okay for pressor support. She was weaned off and transferred to the floor. Reportedly last night she had increasing respiratory difficulty and on 6 L had an x-ray showing a large pleural effusion and pulmonary was asked to comment on this effusion. Recommendations: 1. Previous transudate of pleural effusion: The effusion appears somewhat organized currently based on the CT the abdomen and pelvis. I suspect the lung is either entrapped or trapped and its unlikely that the lung would reexpand with drainage of the fluid at this point time. In addition, after the last procedure, the patient developed a hemothorax requiring chest tube placement and transfer to tertiary center. Based on these issues and the patient's previously expressed desire to avoid procedures, I would not intervene additionally at this time. I attempted to contact the patient's son, Anthony, by phone however there was no answer. I do not think the patient can realistically consent for procedures and again I would be reluctant to pursue any invasive procedures in this patient with prior history of complication and potentially entrapped lung. It would be appropriate to involve palliative care in this patient with multiorgan system dysfunction/failure to better define goals of therapy. If the patient and medical proxy decision-maker elect to pursue additional invasive procedures acknowledging the risks, would be happy to reevaluate and we could consider placement of a indwelling pleural catheter although that is a palliative measure and would likely result in progressive loss of protein stores with continued drainage. 2. Hypercarbic respiratory failure: Patient cannot likely compensate due to kidney disease. BiPAP may be considered and potentially changing the patient's dialysis bicarbonate bath to a higher level to compensate for her chronically elevated CO2 levels. Per nephrology Feel free to contact us if the patient or the patient's proxy decision making team elects to pursue aggressive interventions however at this point time I would favor a more palliative approach Admission and Anticipated Discharge Date Admission Date: April 08, 2021 Subjective Asked by hospitalist to reevaluate this patient with pleural effusion. EMR was reviewed. Patient was seen and examined. She remains somewhat confused and did not think she could consent for procedure. Her blood pressure remains persistently low. Reportedly she complained of some shortness of breath. Blood gases demonstrated chronic hypercarbic respiratory failure and chest x-ray demonstrated an increasing pleural effusion. She has a known cardiomyopathy with an EF of 20% and is dialysis dependent. She recently completed a course of antibiotics. Review of Systems Review of Systems: Unobtainable due to cognitive status Physical Exam Physical Exam: General: Awake and alert, chronically ill-appearing female HENT: NCAT, MMM, EOMI Eyes: PERRLA Neck: Supple, normal range of motion CVS: normal rate and rhythm Resp: b/l decreased breath sounds Abdomen: Soft, nondistended and nontender Extremities: No c/c/e Neuro: face symmetric, no gross focal deficit appreciated Skin: warm and dry MSK: no joint swelling/erythema Results & Data Results & Data ([facility]) Vital Signs (Past 12 Hours) Vital Signs Temp Pulse Pulse Pulse Pulse Resp BP 04/15/21 12:20 73 87/42 L 04/15/21 12:00 74 89/48 L 04/15/21 11:40 67 101/47 L 04/15/21 11:20 72 88/49 L 04/15/21 11:00 75 93/51 L 04/15/21 10:40 82 114/64 04/15/21 10:20 84 112/57 L 04/15/21 10:00 76 108/52 L 04/15/21 09:40 75 94/51 L 04/15/21 09:20 74 106/48 L 04/15/21 09:09 85 98/56 L 04/15/21 08:59 36.6 C 110 H 86 04/15/21 06:57 79 04/15/21 03:27 89 04/15/21 03:04 36.5 C 91 H 18 BP Pulse Ox 04/15/21 12:20 04/15/21 12:00 04/15/21 11:40 04/15/21 11:20 04/15/21 11:00 04/15/21 10:40 04/15/21 10:20 04/15/21 10:00 04/15/21 09:40 04/15/21 09:20 04/15/21 09:09 04/15/21 08:59 04/15/21 06:57 04/15/21 03:27 04/15/21 03:04 112/64 93 Laboratory Results 04/14/21 13:46 04/14/21 13:46 Arterial blood gas from 04/14/2021 showed a pH of 7.32 with a PCO2 of 58 and PO2 of 83 Diagnostic Findings Chest x-ray from last evening was independently reviewed. There appears to be a significant right-sided pleural effusion noted, likely increased compared to prior film from April [address] abdomen pelvis performed April 13 demonstrated that the fluid appears chronic with a split pleural sign it does appear that there are some loculations present as well. Parenchymal fibrotic changes are noted at the lung bases, right greater than left with some compressive atelectasis PG Care Time/CCT Total # of Minutes Spent Total Time Spent with Patient: Total time spent is greater than 50% in coordination of care (as documented) at patient's floor/unit and/or counseling patient: Coding Level of Care Code 61235 Subseq Hosp Care Lvl 3 Diagnoses Pleural effusion due to CHF (congestive heart failure) I50.9 End stage renal disease on dialysis N18.6; Z99.2 CHF (congestive heart failure) I50.9 Heart failure chronicity: acute on chronic Heart failure type: unspecified
--- NOTE | 2021-04-15 16:17 | Dialysis Progress Note ---
Date of Service April 15, 2021 Assessment & Plan (1) End stage renal disease on dialysis: Plan: ESRD on dialysis Tuesday. for 3.5hr w/ aggressive UF goal 4-4.5 L . next tx 04/17, though may need it aain. She has a left AV fistula which is working well. no new labs -cont pneumonia care, eval of abd pain per primary service Admission and Anticipated Discharge Date Admission Date: April 08, 2021 Subjective altered mental status - on 1:1; had worsening sob overnight > CXR w/ increased size of pl effusion Review of Systems Review of Systems: Unobtainable due to reduced consciousness Physical Exam Constitutional: well developed, well nourished, + obese, + altered mental status and + lethargic; no acute distress Eyes: EOM intact bilaterally ENMT: Ears: no external ear abnormality Nose: no external nose abnormality Mouth: + dry oral mucous membranes Neck: no nuchal rigidity Respiratory: normal respiratory effort and + cough (paroxysms of cough) Au scultation: + diminished lung sounds (no obvious difference one side versus other) Cardiovascular: Rate/Rhythm: regular rate and regular rhythm Heart Sounds: normal S1 and normal S2 Extremities: + AV fistula (+t/b); no edema Gastrointestinal (Abdomen): Inspection/Auscultation: normal bowel sounds Percussion/Palpation: abdomen soft; abdomen nontender Musculoskeletal: strength abnormal Skin: no rashes, warm and dry Results & Data ([facility]) Vital Signs (Past 12 Hours) Vital Signs Temp Pulse Pulse Pulse Resp BP BP 04/15/21 15:13 36.4 C L 82 16 93/53 L 04/15/21 15:03 73 04/15/21 13:35 36.4 C L 68 93/40 L 04/15/21 13:00 69 85/42 L 04/15/21 12:40 71 83/42 L 04/15/21 12:20 73 87/42 L 04/15/21 12:00 74 89/48 L 04/15/21 11:40 67 101/47 L 04/15/21 11:20 72 88/49 L 04/15/21 11:00 75 93/51 L 04/15/21 10:40 82 114/64 04/15/21 10:20 84 112/57 L 04/15/21 10:00 76 108/52 L 04/15/21 09:40 75 94/51 L 04/15/21 09:20 74 106/48 L 04/15/21 09:09 85 98/56 L 04/15/21 08:59 36.6 C 110 H 86 04/15/21 06:57 79 Pulse Ox 04/15/21 15:13 95 04/15/21 15:03 04/15/21 13:35 04/15/21 13:00 04/15/21 12:40 04/15/21 12:20 04/15/21 12:00 04/15/21 11:40 04/15/21 11:20 04/15/21 11:00 04/15/21 10:40 04/15/21 10:20 04/15/21 10:00 04/15/21 09:40 04/15/21 09:20 04/15/21 09:09 04/15/21 08:59 04/15/21 06:57 Laboratory Results 04/14/21 13:46 04/14/21 13:46
--- NOTE | 2021-04-15 17:21 | Hospitalist Progress Note ---
Date of Service April 15, 2021 Assessment & Plan (1) Respiratory failure, acute: Plan: Per ' notes with addendum: (1) Acute respiratory failure with hypoxia: Plan: Secondary to fluid overload in setting of end-stage renal disease on dialysis. Appreciate nephrology input. New with routine dialysis Tuesday/Tuesday/Tuesday. --Chest x-ray showing increased pleural effusion in the right side --Pulmonary consulted Awaiting callback from patient's son to discuss regarding possible thoracentesis --Palliative care consulted --Continue with IV Zosyn Altered mental status --Patient appears more drowsy today --Check ABG (2) RLL pneumonia: Plan: Patient completed course of antibiotic therapy. --IV Zosyn resumed (3) Volume overload: Plan: Improved/resolved with hemodialysis. Torsemide held on admission. Will plan to restart on TuThSaS schedule which is the opposite day from her dialysis. (4) Hypotension: Plan: BP on the lower side Monitor (5) Pleural effusion on right: Plan: Chronic issue, s/p thoracentesis earlier in the year revealing transudate. --Plan per #1 (6) Systolic and diastolic CHF w/reduced LV function, NYHA class 4: Plan: NICM with known EF 25%. Chronically on torsemide as outpatient. Also lisinopril 2.5mg, held in hypotension. Does have persistent pleural effusion. 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 (7) Hypothyroidism: Plan: Cont synthroid per home regimen. (8) Diabetes mellitus type 2, insulin dependent: Plan: Euglycemic on current inpatient regimen. Nausea/vomiting/abdominal pain -resolved CT abdomen/pelvis was obtained however it was negative for any acute findings. Her symptoms resolved. Was started back on diet. Delirium Patient drowsy today Continue one-to-one observation (9) DVT prophylaxis: Plan: Heparin DNR/DNI [facility] once stable from a breathing standpoint. Admission and Anticipated Discharge Date Admission Date: April 08, 2021 Subjective Follow-up for ESRD, hypoxic respiratory failure, etc. Events of overnight noted Seen after patient had hemodialysis Seen resting in her bed, mostly sleeping, awakens opens eyes and follows very simple commands but goes back to sleep right away Not in acute distress No signs of pain No other issues per RN On 6 L of oxygen by nasal cannula Review of Systems Review of Systems: all noted and negative except for above Physical Exam Physical Exam: General- oriented x 0, not in distress, breathing with no effort or accessory muscle use Head- atraumatic Eyes- PERRL, EOMI, anicteric ENT- oropharynx clear Neck- supple, no JVD, no adenopathy, no thyromegaly; carotids +2/2, no bruits appreciated Lungs- clear to auscultation bilaterally, no rales/wheezes Heart- normal rate, regular rhythm; no murmur, no gallop, no rub appreciated Abdomen- normal bowel sounds, nondistended, soft, nontender, no masses or hepatosplenomegaly Extremities- no pretibial edema, no calf tenderness; peripheral pulses intact Neuro- alert, oriented x 3; CN 2-12 grossly intact; motor 5/5 bilaterally;sensation 100% on all extremities; no other gross focal neurologic deficits Skin- warm & dry Results & Data Results & Data ([facility]) Vital Signs (Past 12 Hours) Vital Signs Temp Pulse Pulse Pulse Resp BP BP 04/15/21 15:13 36.4 C L 82 16 93/53 L 04/15/21 15:03 73 04/15/21 13:35 36.4 C L 68 93/40 L 04/15/21 13:00 69 85/42 L 04/15/21 12:40 71 83/42 L 04/15/21 12:20 73 87/42 L 04/15/21 12:00 74 89/48 L 04/15/21 11:40 67 101/47 L 04/15/21 11:20 72 88/49 L 04/15/21 11:00 75 93/51 L 04/15/21 10:40 82 114/64 04/15/21 10:20 84 112/57 L 04/15/21 10:00 76 108/52 L 04/15/21 09:40 75 94/51 L 04/15/21 09:20 74 106/48 L 04/15/21 09:09 85 98/56 L 04/15/21 08:59 36.6 C 110 H 86 04/15/21 06:57 79 Pulse Ox 04/15/21 15:13 95 04/15/21 15:03 04/15/21 13:35 04/15/21 13:00 04/15/21 12:40 04/15/21 12:20 04/15/21 12:00 04/15/21 11:40 04/15/21 11:20 04/15/21 11:00 04/15/21 10:40 04/15/21 10:20 04/15/21 10:00 04/15/21 09:40 04/15/21 09:20 04/15/21 09:09 04/15/21 08:59 04/15/21 06:57 all noted and reviewed including below (1) Respiratory failure, acute Respiratory failure complication: hypoxia Qualified Code(s): J96.01 - Acute respiratory failure with hypoxia
[2021-04-15 18:14] LABS: Base Excess ABG 1.6 mEq/L (-9-1.8); HCO3 ABG 29 mmol/L (19-24); PCO2 ABG 62 mmHg (35-46); PO2 ABG 59 mmHg (80-95); pH ABG 7.29 (7.35-7.45)
[2021-04-15 18:16] LABS: Allen Test Pos (Pos)
[2021-04-15] MEDS: ATORVASTATIN 10 MG TAB PO SCH (20:26)
[2021-04-15] MEDS: OLANZapine 10 MG/2.1 ML SDV IM PRN (20:30)
[2021-04-15 21:33] LABS: Base Excess ABG 1.3 mEq/L (-9-1.8); HCO3 ABG 29 mmol/L (19-24); Oxygen Saturation ABG 94.6 % (90-95); PCO2 ABG 63 mmHg (35-46); PO2 ABG 78 mmHg (80-95); pH ABG 7.28 (7.35-7.45)
[2021-04-15 21:39] LABS: Allen Test Pos (Pos)
[2021-04-16] MEDS: PIPERACILLIN/TAZOBACTAM 3.375 GM in DEXTROSE 5% 100 ML IV SCH ×2 (05:09→17:36)
[2021-04-16] MEDS: INSULIN ASPART 100 UNITS/ML 3 ML PEN SC SCH ×4 (08:12→20:33)
[2021-04-16] MEDS: INSULIN GLARGINE SOLOSTAR 100 UNITS/ML 3 ML PEN SC SCH ×2 (08:13→20:33)
[2021-04-16] MEDS: HEPARIN SOD 5,000 UNIT/0.5 ML VIAL SQ SCH ×2 (08:14→20:31)
[2021-04-16] MEDS: MONTELUKAST SODIUM 10 MG TABLET PO SCH (08:14)
[2021-04-16] MEDS: PANTOprazole 40 MG TAB PO SCH (08:15)
[2021-04-16] MEDS: LEVOTHYROXINE SODIUM 75 MCG TABLET PO SCH (08:15)
[2021-04-16] MEDS: METOPROLOL TARTRATE 25 MG TAB PO SCH (08:15)
[2021-04-16] MEDS: CEROVITE ADV FORMULA TAB PO SCH (08:15)
[2021-04-16] MEDS: TORSEMIDE 20 MG TAB PO SCH (08:16)
[2021-04-16] MEDS: LORATADINE 10 MG TAB PO SCH (08:16)
[2021-04-16 09:30] LABS: HCO3 ABG 27 mmol/L (19-24); Oxygen Saturation ABG 97.1 % (90-95); PCO2 ABG 57 mmHg (35-46); PO2 ABG 102 mmHg (80-95)
[2021-04-16 09:43] LABS: Allen Test Pos (Pos)
--- NOTE | 2021-04-16 14:20 | Palliative Care Consultation ---
Date of Consultation April 16, 2021 Assessment & Plan (1) Dyspnea: with respiratory failure, on bipap Dyspnea type: shortness of breath Qualified Code(s): R06.02 - Shortness of breath (2) Palliative care encounter: Silva is currently not able to participate in goals of care discussion. I did review her chart for prior advance directive. She is a resident of [facility]. There is no POLST in EMR. I tried twice to call her son, Anthony, to discuss goals of care with no answer. Palliative care will follow. (3) Respiratory failure, acute: Respiratory failure complication: hypoxia Qualified Code(s): J96.01 - Acute respiratory failure with hypoxia (4) RLL pneumonia: (5) CHF (congestive heart failure): Heart failure chronicity: acute on chronic Heart failure type: unspecified Qualified Code(s): I50.9 - Heart failure, unspecified (6) End stage renal disease on dialysis: History of Present Illness Reason for Consultation: goals of care Requesting Physician: Dr. Zheng Attending Physician: Luis Zheng MD History of Present Illness 80 yo lady with history of ESRD on hemodialysis. She also has heart failure w ith reduced ejection fraction and EF of 25%. She has comorbid diabetes, CAD and afib. She was admitted with syncopal episode and acute hypoxic respiratory failure. She had volume overload with right pleural effusion and has had aggressive dialysis. She is also being treated for RLL pneumonia. She continues to have hypoxia and is on and off bipap though she has been on bipap pretty consistently since last night. At the time of my visit she is somnolent but arousable. She has difficulty hearing and has been restless and confused at times. She is not really able to answer questions at this time. Allergies Allergy/AdvReac Type Severity Reaction Status Date / Time fish derived Allergy Severe Anaphylaxis Verified 04/08/21 08:42 alcohol Allergy Intermediate bumps on Verified 04/08/21 08:42 skin with alcohol wipes Aminoglycosides Allergy Intermediate Rash Verified 04/08/21 08:42 polymyxin B Allergy Intermediate Rash Verified 04/08/21 08:42 neomycin Allergy Mild Rash Verified 04/08/21 08:42 iodine Allergy Unknown Unknown Verified 04/08/21 08:42 promethazine Allergy Unknown Unknown Verified 04/08/21 08:42 aminophylline Allergy Unknown Verified 04/08/21 08:42 nystatin Allergy Unknown Verified 04/08/21 08:42 adhesive AdvReac Mild bumps on Verified 04/08/21 08:42 skin with "tape" Home Medications Medication Instructions Recorded Confirmed Type acetaminophen 325 mg tablet 650 mg PO Q6 PRN 09/23/20 09/23/20 History (Tylenol) atorvastatin 10 mg tablet (Lipitor) 10 mg PO HS 09/23/20 04/08/21 History calcium carbonate 500 mg calcium 1,000 mg PO Q8 PRN 09/23/20 09/23/20 History (1,250 mg) tablet gabapentin 100 mg capsule 100 mg PO AMHS 09/23/20 04/08/21 History insulin human U-100 NPH-regulr 10 unit SUBCUT BID 09/23/20 04/08/21 History 70-30 mix 100 unit/mL subcutaneous susp (Humulin 70/30 U-100 Insulin) levothyroxine 75 mcg tablet 75 mcg PO DAILY 09/23/20 04/08/21 History lisinopril 2.5 mg tablet 2.5 mg PO HS 09/23/20 04/08/21 History loratadine 5 mg chewable tablet 5 mg PO DAILY 09/23/20 04/08/21 History melatonin 5 mg tablet 10 mg PO HS PRN 09/23/20 04/08/21 History menthol 0.44 %-zinc oxide 20.6 % 1 applic TOPICAL QS 09/23/20 09/23/20 History topical ointment (Calmoseptine) metoprolol tartrate 37.5 mg tablet 37.5 mg PO DAILY 09/23/20 04/08/21 History montelukast 10 mg tablet 10 mg PO DAILY 09/23/20 04/08/21 History multivitamin with minerals 1 tab PO DAILY 09/23/20 04/08/21 History pantoprazole 40 mg tablet,delayed 40 mg PO DAILY 09/23/20 04/08/21 History release torsemide 20 mg tablet 80 mg PO .TUTHSASU 09/23/20 04/08/21 History bisacodyl 10 mg rectal suppository 10 mg ME DAILY PRN 04/08/21 04/08/21 History (Dulcolax (bisacodyl)) chlorpheniramine-dextromethorphan 10 ml PO Q6H PRN 04/08/21 04/08/21 History 1 mg-7.5 mg/5 mL oral liquid (Robitussin Long-Acting) menthol 5 mg lozenges (Cough Drops) 1 mg PO Q2H PRN 04/08/21 04/08/21 History Patient History Medical History Acute on chronic systolic CHF (congestive heart failure) Anemia Breast cancer s/p radiation CAD (coronary artery disease) mild, non-obstructive per 06/2018 cardiac cath Cardiorenal syndrome Chronic back pain Diabetes mellitus type 2, insulin dependent ESRD (end stage renal disease) on dialysis GERD (gastroesophageal reflux disease) controlled Hemothorax after procedure History of DVT (deep vein thrombosis) LUE Hyperlipidemia Hypothyroidism LBBB (left bundle branch block) chronic dating back to at least 2007 per prior [facility] EKG's Morbid obesity Nausea and vomiting Non-ischemic cardiomyopathy Osteoarthritis Peripheral neuropathy Pleural effusion on right Systolic and diastolic CHF w/reduced LV function, NYHA class 4 Volume overload Surgical History AVF (arteriovenous fistula) LEFT ARM History of appendectomy History of cardiac cath 06/2018: Mild, non-obstructive CAD/no culprit lesions identified to explain symptoms or abnormal stress test History of cataract surgery Hx of lumpectomy Right breast S/P aneurysm repair 05/2019 AV fistula QUENTIN Deutsch Family History Father Diabetes Other Allergies Heart disease Social History Smoking Status: Unknown if ever smoked Tobacco Type: Cigarettes Second Hand Exposure: No; Hx Alcohol Use: No Hx Substance Use: No Preferred Language: Divehi Communication Ability: Unable Visual Impairment: No Limitations Hearing Ability: Hard of Hearing Donor Services Team Leader Required: No Beliefs That Will Affect Care: None marital status: Current Living Situation: Detention Other Information That Helps Us Care for You: No Feels Safe at Home: Yes Assistive Devices: Oxygen - Continuous and Walker Review of Systems Review of Systems: Unobtainable due to cognitive status and Other (bipap) Physical Exam Constitutional: + ill appearing; no acute distress ENMT: Ears: + hearing impairment Respiratory: + uses accessory muscles (on bipap) Cardiovascular: Rate/Rhythm: regular rate and regular rhythm Musculoskeletal: Extremities: extremities normal to inspection Neurologic: confused Results & Data ([facility]) Vital Signs (Past 12 Hours) Vital Signs Temp Pulse Pulse Pulse Resp BP Pulse Ox 04/16/21 11:10 98.1 F 79 20 114/57 L 98 04/16/21 08:41 96 H 24 94 04/16/21 07:33 96 H 04/16/21 04:45 98.1 F 98 H 20 122/66 99 04/16/21 03:38 100 H 30 H 99 04/16/21 03:16 84 PG Care Time/CCT Total # of Minutes Spent Total Time Spent with Patient: Total time spent is greater than 50% in coordination of care (as documented) at patient's floor/unit and/or counseling patient: Coding Level of Care Code 19505 Initial Inpt Care Lvl 1 Diagnoses Dyspnea R06.02 Dyspnea type: shortness of breath Respiratory failure, acute J96.01 Respiratory failure complication: hypoxia RLL pneumonia J18.9 CHF (congestive heart failure) I50.9 Heart failure chronicity: acute on chronic Heart failure type: unspecified End stage renal disease on dialysis N18.6; Z99.2 Palliative care encounter Z51.5
--- NOTE | 2021-04-16 17:29 | Hospitalist Progress Note ---
Date of Service April 16, 2021 Assessment & Plan (1) Respiratory failure, acute: Plan: Per ' notes with addendum: (1) Acute respiratory failure with hypoxia, hypercarbia Plan: Secondary to fluid overload in setting of end-stage renal disease on dialysis. Appreciate nephrology input. New with routine dialysis Tuesday/Tuesday/Tuesday. --Chest x-ray showing increased pleural effusion in the right side --Patient placed on BiPAP yesterday afternoon due to lethargy Repeat ABG this morning about the same as yesterday with pH of 7.3, bicarb 57 However patient appears to be a little bit more awake today, was able to answer in phrases this morning, had some lunch --Case discussed with patient's son Anthony in the afternoon Requested to speak with Dr. Marcus --Messaged Dr. Marcus At this point he does not recommend any procedures including pleural catheter placement at this time due to possible entrapped lung Recommends palliative care approach Dr. Marcus tried to reach Anthony today but was unsuccessful --Continue BiPAP for now Palliative care on board Altered mental status likely secondary to metabolic encephalopathy --Likely secondary to hypercarbia, hypoxia, pneumonia --Patient appears to be less drowsy today as stated above (2) RLL pneumonia: Plan: --IV Zosyn resumed (3) Volume overload: Plan: Torsemide TuThSaSu schedule which is the opposite day from her dialysis. (4) Hypotension: Plan: BP on the lower side Monitor (5) Pleural effusion on right: Plan: Chronic issue, s/p thoracentesis earlier in the year revealing transudate. --Plan per #1 (6) Systolic and diastolic CHF w/reduced LV function, NYHA class 4: Plan: NICM with known EF 25%. Chronically on torsemide as outpatient. Also lisinopril 2.5mg, held in hypotension. Does have persistent pleural effusion. 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 (7) Hypothyroidism: Plan: Cont synthroid per home regimen. (8) Diabetes mellitus type 2, insulin dependent: Plan: Euglycemic on current inpatient regimen. Nausea/vomiting/abdominal pain -resolved CT abdomen/pelvis was obtained however it was negative for any acute findings. Her symptoms resolved. Was started back on diet. Delirium Patient less drowsy today Continue one-to-one observation (9) DVT prophylaxis: Plan: Heparin DNR/DNI Dispo-pending Admission and Anticipated Discharge Date Admission Date: April 08, 2021 Subjective Follow-up for volume overload, ESRD, right-sided pleural effusion, etc. Seen in the morning, patient is awake, on BiPAP, not in distress Able to answer in a few words Oriented x1-2, but mostly confused Denies shortness of breath, chest pain, palpitations, dizziness Did not have breakfast per PROFESSIONAL NURSING ASSISTANT at the bedside Reevaluated at around noon time, the patient is off the BiPAP, on 3 L of nasal cannula Awake and alert Not talking much Sitting up in bed, having lunch, being assisted with her meal by the PROFESSIONAL NURSING ASSISTANT Reevaluated around 3 PM, patient is sleeping, no signs of distress, on 3 L of na yara cannula Review of Systems Review of Systems: all noted and negative except for above Physical Exam Physical Exam: General- oriented x 1-2, not in distress, speaks in mostly phrases with no effort or accessory muscle use Eyes- anicteric Neck- no JVD Lungs-positive decreased breath sounds on the right, clear on the left No wheezing Heart- normal rate, regular rhythm; no murmurs Abdomen- normal bowel sounds, nondistended, soft, nontender Extremities- no pretibial edema, no calf tenderness Neuro- alert, oriented x 1-2; no gross focal neurologic deficits Skin- warm & dry Results & Data Results & Data ([facility]) Vital Signs (Past 12 Hours) Vital Signs Temp Pulse Pulse Pulse Resp BP Pulse Ox 04/16/21 16:10 88 04/16/21 14:58 36.4 C L 88 22 111/68 94 04/16/21 11:10 36.7 C 79 20 114/57 L 98 04/16/21 08:41 96 H 24 94 04/16/21 07:33 96 H all noted and reviewed including below (1) Respiratory failure, acute Respiratory failure complication: hypoxia Qualified Code(s): J96.01 - Acute respiratory failure with hypoxia
[2021-04-16] MEDS: ATORVASTATIN 10 MG TAB PO SCH (20:30)
[2021-04-16] MEDS ORDERED: diphenhydrAMINE 50 MG/ML VIAL IV STA (23:54)
[2021-04-17] MEDS: OLANZapine 10 MG/2.1 ML SDV IM PRN ×2 (02:09→23:07)
[2021-04-17] MEDS: PIPERACILLIN/TAZOBACTAM 3.375 GM in DEXTROSE 5% 100 ML IV SCH ×2 (04:22→16:37)
[2021-04-17] MEDS ORDERED: SODIUM CHLORIDE 0.9% 1000ML 1,000 ML IV PRN (07:00)
[2021-04-17] MEDS ORDERED: HEPARIN SOD (PORCINE) 1000 UNIT/ML IV ONE (07:00)
[2021-04-17] MEDS ORDERED: ALBUMIN 25% 12.5 GM/50 ML VIAL IV ONE (07:00)
[2021-04-17] MEDS ORDERED: EPOETIN ALFA 10,000 UNITS/ML VIAL IV ONE (07:00)
[2021-04-17] MEDS ORDERED: ALBUMIN 25% 12.5 GM/50 ML VIAL IV SCH (07:00)
[2021-04-17] MEDS: INSULIN ASPART 100 UNITS/ML 3 ML PEN SC SCH ×4 (07:59→21:19)
[2021-04-17] MEDS: INSULIN GLARGINE SOLOSTAR 100 UNITS/ML 3 ML PEN SC SCH ×2 (08:01→21:20)
[2021-04-17] MEDS: HEPARIN SOD 5,000 UNIT/0.5 ML VIAL SQ SCH ×2 (08:01→21:21)
--- NOTE | 2021-04-17 09:52 | Nephrology Progress Note ---
Date of Service April 17, 2021 Assessment & Plan (1) End stage renal disease on dialysis: Plan: ESRD on dialysis Tuesday. for 4hr tx w/ aggressive UF goal 4-4.5 L . next tx 04/20, though may need short tx on weekend if decompensates again. She has a left AV fistula which is working well. no new labs -bmp, cbc ordered for am -cont torsemide on non HD days -cont pneumonia care, acute on chronic respiratory failure per primary service Admission and Anticipated Discharge Date Admission Date: April 08, 2021 Subjective still needing a sitter; having frequent cough paroxysm; restless; still w/ diminished MS Review of Systems Review of Systems: Unobtainable due to reduced consciousness Physical Exam Constitutional: well developed, well nourished, + obese, + altered mental status and + lethargic; no acute distress Eyes: EOM intact bilaterally ENMT: Ears: no external ear abnormality Nose: no external nose abnormality Mouth: + dry oral mucous membranes Neck: no nuchal rigidity Respiratory: normal respiratory effort and + grunting; no cough Ausculta tion: + diminished lung sounds, + rhonchi and + wheezes Cardiovascular: Rate/Rhythm: regular rate and regular rhythm Heart Sounds: normal S1 and normal S2 Extremities: + AV fistula (+t/b); no edema Gastrointestinal (Abdomen): Inspection/Auscultation: normal bowel sounds Percussion/Palpation: abdomen soft; abdomen nontender Musculoskeletal: Extremities: strength 5/5 throughout Skin: no rashes, warm and dry Neurologic: rae, generalized weakness; opens eyes briefly answer 2-3 Y/N questions not always appropriately Results & Data ([facility]) Vital Signs (Past 12 Hours) Vital Signs Temp Pulse Pulse Resp BP Pulse Ox 04/17/21 07:24 36.4 C L 89 20 133/69 96 04/17/21 05:02 36.4 C L 93 H 20 114/67 100 04/17/21 04:47 82 04/17/21 03:19 100 H 33 H 97 04/16/21 23:30 36.5 C 90 20 111/55 L 100 04/16/21 23:02 90 22 98 Laboratory Results 04/14/21 13:46 04/14/21 13:46
[2021-04-17] MEDS: METOPROLOL TARTRATE 25 MG TAB PO SCH (09:56)
[2021-04-17] MEDS: LEVOTHYROXINE SODIUM 75 MCG TABLET PO SCH (09:56)
[2021-04-17] MEDS: LORATADINE 10 MG TAB PO SCH (09:56)
[2021-04-17] MEDS: MONTELUKAST SODIUM 10 MG TABLET PO SCH (09:56)
[2021-04-17] MEDS: PANTOprazole 40 MG TAB PO SCH (09:57)
[2021-04-17] MEDS: CEROVITE ADV FORMULA TAB PO SCH (09:57)
[2021-04-17] MEDS: HEPARIN SOD (PORCINE) 1000 UNIT/ML IV SCH (10:38)
--- NOTE | 2021-04-17 13:34 | XRay Report ---
XR chest 1V portable CLINICAL HISTORY: ff up r pleural effusion TECHNIQUE: Single frontal radiograph of the chest was obtained. Comparison: Comparison is made to chest one view 04/14/2021 FINDINGS: No lines and tubes are seen. The cardiomediastinal silhouette is obscured. Diffuse airspace opacities are less prominent than on prior exam. Interval apparent decrease in size of large right and possibl e small left layering pleural effusion. IMPRESSION: Interval slight improvement in right greater than left pleural effusion and airspace opacities which may represent atelectasis, pneumonia, and/or aspiration. ACT 112: Negative or not required by law. Electronically signed by: Ryan Ramírez M.D. 04/17/2021 1:32 PM
--- NOTE | 2021-04-17 14:06 | Hospitalist Progress Note ---
Date of Service April 17, 2021 Assessment & Plan (1) Respiratory failure, acute: Plan: Per ' notes with addendum: (1) Acute respiratory failure with hypoxia, hypercarbia Plan: Secondary to fluid overload in setting of end-stage renal disease on dialysis. Appreciate nephrology input. New with routine dialysis Tuesday/Tuesday/Tuesday. --Chest x-ray showing increased pleural effusion in the right side --Patient placed on BiPAP yesterday afternoon due to lethargy Repeat ABG this morning about the same as yesterday with pH of 7.3, bicarb 57 However patient appears to be a little bit more awake today, was able to answer in phrases this morning, had some lunch --Case discussed with patient's son Anthony in the afternoon Requested to speak with Dr. Marcus --Messaged Dr. Marcus At this point he does not recommend any procedures including pleural catheter placement at this time due to possible entrapped lung Recommends palliative care approach Dr. Marcus tried to reach Anthony today but was unsuccessful --Continue BiPAP for now Palliative care on board 04/17/2021 Patient on 3 L of nasal cannula Somewhat more awake, can answer yes, not to questions but still mostly disoriented Discussed with patient's son Anthony yesterday, he is open with discussion regarding palliative care and comfort measures Discussed with Dr. Rico, will reach out to patient's son today Altered mental status likely secondary to metabolic encephalopathy --Likely secondary to hypercarbia, hypoxia, pneumonia --Patient appears to be less drowsy today but still confused (2) RLL pneumonia: Plan: --IV Zosyn resumed (3) Volume overload: Plan: Torsemide TuThSaSu schedule which is the opposite day from her dialysis. (4) Hypotension: Plan: BP on the lower side Monitor (5) Pleural effusion on right: Plan: Chronic issue, s/p thoracentesis earlier in the year revealing transudate. --Plan per #1 (6) Systolic and diastolic CHF w/reduced LV function, NYHA class 4: Plan: NICM with known EF 25%. Chronically on torsemide as outpatient. Also lisinopril 2.5mg, held in hypotension. Does have persistent pleural effusion. 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 (7) Hypothyroidism: Plan: Cont synthroid per home regimen. (8) Diabetes mellitus type 2, insulin dependent: Plan: Euglycemic on current inpatient regimen. Nausea/vomiting/abdominal pain -resolved CT abdomen/pelvis was obtained however it was negative for any acute findings. Her symptoms resolved. Was started back on diet. Delirium Patient less drowsy today Continue one-to-one observation (9) DVT prophylaxis: Plan: Heparin DNR/DNI Dispo-pending Admission and Anticipated Discharge Date Admission Date: April 08, 2021 Subjective Follow-up for volume overload, right pleural effusion, ESRD, etc. at bedside, patient seen, just finished with hemodialysis Patient awake, but appears to be drowsy, occasionally answers questions with yes or no, shakes/nods head Not oriented, mostly confused Review of systems difficult to assess as patient nodding, as patient was giving answers consistent responses Does not seem to be in respiratory distress, pain, discomfort, shortness of breath Had breakfast this morning On 3 L of oxygen via nasal cannula No other symptoms Review of Systems Review of Systems: all noted and negative except for above Physical Exam Physical Exam: General- oriented x 0, not in distress, breathing with no effort or accessory muscle use Eyes- anicteric Neck- no JVD Lungs-decreased breath sounds right lung, clear on the left, no wheezing Heart- normal rate, regular rhythm; no murmurs Abdomen- normal bowel sounds, nondistended, soft, nontender Extremities- no pretibial edema, no calf tenderness Neuro- alert, oriented x 0; no gross focal neurologic deficits Skin- warm & dry Results & Data Results & Data ([facility]) Vital Signs (Past 12 Hours) Vital Signs Temp Pulse Pulse Resp BP BP Pulse Ox 04/17/21 13:15 36.4 C L 91 H 18 104/64 94 04/17/21 12:45 36.4 C L 121 H 94/56 L 04/17/21 12:35 122 H 99/62 L 04/17/21 12:20 125 H 98/53 L 04/17/21 12:00 128 H 103/64 04/17/21 11:40 134 H 120/68 04/17/21 11:20 131 H 112/65 04/17/21 11:00 67 80/65 L 04/17/21 10:40 90 91/52 L 04/17/21 10:20 92 H 92/41 L 04/17/21 10:00 78 128/70 04/17/21 09:40 80 152/98 H 04/17/21 09:20 58 L 132/68 04/17/21 09:00 59 L 160/62 H 04/17/21 08:40 68 107/58 L 04/17/21 08:33 36.4 C L 88 88 123/68 04/17/21 07:24 36.4 C L 89 20 133/69 96 04/17/21 05:02 36.4 C L 93 H 20 114/67 100 04/17/21 04:47 82 04/17/21 03:19 100 H 33 H 97 all noted and reviewed including below (1) Respiratory failure, acute Respiratory failure complication: hypoxia Qualified Code(s): J96.01 - Acute respiratory failure with hypoxia
--- NOTE | 2021-04-17 14:13 | Palliative Care Progress Note ---
Date of Service April 17, 2021 Assessment & Plan (1) Dyspnea: Plan: Variable. She does have O2, bipap, prn opioid if needed. (2) Cough: Plan: May be relieved with prn opioid (3) Palliative care encounter: Plan: I spoke with her son, Zechariah, on the phone. He is unable to visit in person at this time due to pending covid test results. He understands that her effusion is not amenable to thoracentesis. We also discussed her overall poor prognosis. He chose hospice for his father who in February of this year. He felt like that was more straightforward as his father was aspirating and unable to eat or drink. He wants Silva to be comfortable and is not entirely opposed to hospice but is bothered by the recollection that in the past when he and his mother have discussed potential interventions for her care, she has decided that the benefit was worth the risk. We talked about the comorbidities contributing to her frailty which are also contributing to her prognosis, not just the effusion. He understands but would feel more confident with his decision if he were able to talk with her. Due to her hearing impairment and confusion, zoom visit would likely not be effective. He will come in to talk with her if/when he receives his negative covid results. He does confirm that while we would continue her current level of care, we would not escalate care in the meantime. (4) End stage renal disease on dialysis: (5) Pleural effusion due to CHF (congestive heart failure): (6) RLL pneumonia: Admission and Anticipated Discharge Date Admission Date: April 08, 2021 Subjective Had bipap overnight but has been off so far today. She had dialysis earlier today. She has had tachycardia and hypotension since dialysis which is improving. She has persistent cough. Review of Systems Review of Systems: [place] Symptom Assessment Scale limited due to confusion and hearing impairment Pain by observation 0/3 Dyspnea by observation 1/3 Palliative Performance Score 30% Physical Exam Constitutional: + ill appearing ENMT: Ears: + hearing impairment Respiratory: + uses accessory muscles and + cough Cardiovascular: Rate/Rhythm: + irregularly irregular Neurologic: confused Results & Data ([facility]) Vital Signs (Past 12 Hours) Vital Signs Temp Pulse Pulse Resp BP BP Pulse Ox 04/17/21 13:15 97.5 F L 91 H 18 104/64 94 04/17/21 12:45 97.5 F L 121 H 94/56 L 04/17/21 12:35 122 H 99/62 L 04/17/21 12:20 125 H 98/53 L 04/17/21 12:00 128 H 103/64 04/17/21 11:40 134 H 120/68 04/17/21 11:20 131 H 112/65 04/17/21 11:00 67 80/65 L 04/17/21 10:40 90 91/52 L 04/17/21 10:20 92 H 92/41 L 04/17/21 10:00 78 128/70 04/17/21 09:40 80 152/98 H 04/17/21 09:20 58 L 132/68 04/17/21 09:00 59 L 160/62 H 04/17/21 08:40 68 107/58 L 04/17/21 08:33 97.5 F L 88 88 123/68 04/17/21 07:24 97.5 F L 89 20 133/69 96 04/17/21 05:02 97.5 F L 93 H 20 114/67 100 04/17/21 04:47 82 04/17/21 03:19 100 H 33 H 97 PG Care Time/CCT Total # of Minutes Spent Total Time Spent: 38 Total Time Spent with Patient: Total time spent is greater than 50% in coordination of care (as documented) at patient's floor/unit and/or counseling patient: symptom management, goals of care, family education and support Coding Level of Care Code 15038 Subseq Hosp Care Lvl 3 Diagnoses Dyspnea R06.02 Dyspnea type: shortness of breath Cough R05.9 Palliative care encounter Z51.5 End stage renal disease on dialysis N18.6; Z99.2 Pleural effusion due to CHF (congestive heart failure) I50.9 RLL pneumonia J18.9 (1) Dyspnea Dyspnea type: shortness of breath Qualified Code(s): R06.02 - Shortness of breath
[2021-04-17] MEDS: HYDROmorphone INJ 0.5 MG/0.5 ML SYR IV PRN (14:25)
[2021-04-17] MEDS: ATORVASTATIN 10 MG TAB PO SCH (21:20)
[2021-04-18 03:11] LABS: Hematocrit (blood only) 31.7 % (37-47); Hemoglobin 10.1 g/dL (12.0-16.0); Mean Corpuscular Hemoglobin 34.7 pg (25-34); Mean Corpuscular Hgb Conc 31.9 g/dL (32-36); Mean Corpuscular Volume 108.9 fL (80-100); RDW Coefficient of Variation 15.7 % (11.5-14.5); RDW Standard Deviation 60.8 fL (36.4-46.3); Red Blood Count 2.91 M/uL (4.2-5.4)
[2021-04-18 03:19] LABS: Base Excess ABG 2.1 mEq/L (-9-1.8); HCO3 ABG 29 mmol/L (19-24); Oxygen Saturation ABG 97.4 % (90-95); PCO2 ABG 55 mmHg (35-46); PO2 ABG 105 mmHg (80-95); pH ABG 7.34 (7.35-7.45)
[2021-04-18 03:31] LABS: Mean Platelet Volume 9.5 fL (7.4-10.4); Platelet Count 90 K/uL (130-400)
[2021-04-18 03:32] LABS: Allen Test Pos (Pos); Platelet Estimate Decreased (Normal)
[2021-04-18 03:49] LABS: BUN Creatinine Ratio 6.1 (10-20); Calcium 8.3 mg/dl (8.5-10.1); Creatinine Clr Calc Pharmacy 10.3 ml/min; Est GFR (African American) 9.7 ml/min; Est GFR (Non-African American) 8.3 ml/min; Potassium 3.9 mmol/L (3.5-5.1)
[2021-04-18] MEDS: PIPERACILLIN/TAZOBACTAM 3.375 GM in DEXTROSE 5% 100 ML IV SCH (04:49)
[2021-04-18] MEDS: PANTOprazole 40 MG TAB PO SCH (09:30)
[2021-04-18] MEDS: TORSEMIDE 20 MG TAB PO SCH (09:30)
[2021-04-18] MEDS: MONTELUKAST SODIUM 10 MG TABLET PO SCH (09:31)
[2021-04-18] MEDS: METOPROLOL TARTRATE 25 MG TAB PO SCH (09:31)
[2021-04-18] MEDS: CEROVITE ADV FORMULA TAB PO SCH (09:31)
[2021-04-18] MEDS: LORATADINE 10 MG TAB PO SCH (09:32)
[2021-04-18] MEDS: LEVOTHYROXINE SODIUM 75 MCG TABLET PO SCH (09:33)
[2021-04-18] MEDS: INSULIN GLARGINE SOLOSTAR 100 UNITS/ML 3 ML PEN SC SCH ×2 (09:49→20:37)
[2021-04-18] MEDS: HEPARIN SOD 5,000 UNIT/0.5 ML VIAL SQ SCH ×2 (09:52→20:38)
[2021-04-18] MEDS: INSULIN ASPART 100 UNITS/ML 3 ML PEN SC SCH ×4 (09:52→20:38)
--- NOTE | 2021-04-18 13:53 | CT Scan Report ---
CT head/brain wo con CLINICAL HISTORY: altered mental status, evaluate for CVA COMPARISON STUDY: 04/08/2021 CT DOSE: 1404.83 mGycm TECHNIQUE: Standard CT of the Brain was performed without IV contrast. A dose lowering technique was utilized adhering to the principles of ALARA. FINDINGS: Extraaxial space: There is no evidence for subdural hematoma. There are no extra-axial fluid collecti ons. Ventricles and cisterns: The ventricles are mildly dilated bilaterally. There is no evidence for mid line shift or mass effect. Parenchyma: There is no subarachnoid or intraparenchymal hemorrhage. Old lacunar infarct is again se en within the head of the thalamus on the right. There is no evidence for an acute infarct or cerebra l edema. There is mild cerebral cortical atrophy and decreased attenuation in the periventricular whi te matter representing remote small vessel disease. There are no gross mass lesions. Osseous structures: There is no evidence for an acute fracture. The visualized paranasal sinuses are clear. The mastoid air cells are clear bilaterally. Soft tissues: There is no evidence for focal soft tissue swelling. IMPRESSION: No acute intracerebral pathology. Mild cerebral cortical atrophy and remote small vessel disease are again seen. Old lacunar infarct involving the head of the thalamus on the right is also a gain seen. ACT 112: Negative or not required by law. Electronically signed by: Preston Kay M.D. 04/18/2021 1:52 PM
[2021-04-18] MEDS: OLANZapine 10 MG/2.1 ML SDV IM PRN (15:40)
--- NOTE | 2021-04-18 15:59 | Hospitalist Progress Note ---
Date of Service April 18, 2021 Assessment & Plan (1) Respiratory failure, acute: Plan: Per ' notes with addendum: (1) Acute respiratory failure with hypoxia, hypercarbia Plan: Secondary to fluid overload in setting of end-stage renal disease on dialysis. Possible community-acquired, aspiration pneumonia Appreciate nephrology input. New with routine dialysis Tuesday/Tuesday/Tuesday. --Chest x-ray showing increased pleural effusion in the right side --Patient placed on BiPAP yesterday afternoon due to lethargy Repeat ABG this morning about the same as yesterday with pH of 7.3, bicarb 57 However patient appears to be a little bit more awake today, was able to answer in phrases this morning, had some lunch --Case discussed with patient's son Anthony in the afternoon Requested to speak with Dr. Marcus --Messaged Dr. Marcus At this point he does not recommend any procedures including pleural catheter placement at this time due to possible entrapped lung Recommends palliative care approach Dr. Marcus tried to reach Anthony today but was unsuccessful --Continue BiPAP for now Palliative care on board 04/18/2021 Patient on 3 L of nasal cannula Patient more awake, able to eat more, take medications, no respiratory distress Repeat chest x-ray: Improving right-sided pleural effusion Pulmonary service not recommending thoracentesis or pleural catheter placement at this point ABG about the same pH 7.3, bicarb 57-60, per review of records, this appears to be chronic Continue ESRD for fluid management Completed 5 to 6 days of ceftriaxone doxycycline, and 5 days of Zosyn DC antibiotics now Monitor closely Altered mental status likely secondary to metabolic encephalopathy --Likely secondary to hypercarbia, hypoxia, underlying pneumonia Hospital delirium? --Per patient's son Anthony, patient usually develops delirium while in the hospital, resolves upon returning to home --Patient appears to be more awake, having p.o. intake, p.o. meds, but still confused, on the drowsy side --Management of hypoxia, hypercarbia, pneumonia as above (2) RLL pneumonia: Plan: --Ceftriaxone plus doxycycline given for 5 to 6 days --IV Zosyn given x5 days --Afebrile --DC antibiotics for now Monitor closely (3) Volume overload: Plan: Torsemide TuThSaSu schedule which is the opposite day from her dialysis. (4) Hypotension: Plan: BP on the lower side Monitor (5) Pleural effusion on right: Plan: Chronic issue, s/p thoracentesis earlier in the year revealing transudate. --Plan per #1 (6) Systolic and diastolic CHF w/reduced LV function, NYHA class 4: Plan: NICM with known EF 25%. Chronically on torsemide as outpatient. Also lisinopril 2.5mg, held in hypotension. Does have persistent pleural effusion. 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 (7) Hypothyroidism: Plan: Cont synthroid per home regimen. (8) Diabetes mellitus type 2, insulin dependent: Plan: Euglycemic on current inpatient regimen. Nausea/vomiting/abdominal pain -resolved CT abdomen/pelvis was obtained however it was negative for any acute findings. Her symptoms resolved. Was started back on diet. (9) DVT prophylaxis: Plan: Heparin DNR/DNI Dispo-pending Admission and Anticipated Discharge Date Admission Date: April 08, 2021 Subjective Patient follow-up for volume overload, hypoxia, ESRD, pleural effusion, etc. Seen sitting up in bed, on 3 L of oxygen via nasal cannula Not in distress Patient is awake but seems to be mostly confused Shakes head, answers yes or no to some questions Patient had oatmeal for breakfast, taking medications with no problems Denies shortness of breath or any pain No nausea vomiting noted Full ROS difficult to assess due to patient's cognitive status Review of Systems Review of Systems: all noted and negative except for above Physical Exam Physical Exam: General- oriented x 0, not in distress, breathing with no effort or accessory muscle use Eyes- anicteric Neck- no JVD Lungs-decreased breath sounds right mid to lower lung field, clear on the left Heart- normal rate, regular rhythm; no murmurs Abdomen- normal bowel sounds, nondistended, soft, nontender Extremities- no pretibial edema, no calf tenderness Neuro- alert, oriented x 0; no gross focal neurologic deficits Skin- warm & dry Results & Data Results & Data ([facility]) Vital Signs (Past 12 Hours) Vital Signs Temp Pulse Resp BP Pulse Ox 04/18/21 11:37 36.7 C 83 20 107/64 97 04/18/21 07:55 36.5 C 99 H 22 112/62 90 04/18/21 04:43 36.7 C 90 18 96/53 L 99 all noted and reviewed including below (1) Respiratory failure, acute Respiratory failure complication: hypoxia Qualified Code(s): J96.01 - Acute respiratory failure with hypoxia
[2021-04-18] MEDS: ATORVASTATIN 10 MG TAB PO SCH (20:37)
[2021-04-18] MEDS: MELATONIN 3 MG TAB PO PRN (20:55)
[2021-04-18] MEDS ORDERED: diphenhydrAMINE Capsule 25 MG CAP PO ONE (22:55)
[2021-04-19] MEDS: HYDROmorphone INJ 0.5 MG/0.5 ML SYR IV PRN (00:15)
[2021-04-19] MEDS ORDERED: diphenhydrAMINE 50 MG/ML VIAL IV STA (02:11)
[2021-04-19] MEDS: OLANZapine 10 MG/2.1 ML SDV IM PRN (02:30)
[2021-04-19] MEDS ORDERED: GABAPENTIN 100 MG CAP PO STA (03:43)
[2021-04-19 09:11] LABS: Basophils # (auto) 0.07 K/uL (0-0.2); Basophils % (auto) 1.3 %; Eosinophils % (auto) 5.4 %; Hematocrit (blood only) 35.1 % (37-47); Hemoglobin 11.2 g/dL (12.0-16.0); Immature Granulocytes # (auto) 0.01 K/uL (0.00-0.02); Immature Granulocytes % (auto) 0.2 %; Lymphocytes # (auto) 1.06 K/uL (1.2-3.4); Lymphocytes % (auto) 19.1 %; Mean Corpuscular Hemoglobin 34.8 pg (25-34); Mean Corpuscular Hgb Conc 31.9 g/dL (32-36); Mean Platelet Volume 10.3 fL (7.4-10.4); Monocytes # (auto) 0.59 K/uL (0.11-0.59); Monocytes % (auto) 10.6 %; Neutrophils # (auto) 3.53 K/uL (1.4-6.5); Neutrophils % (auto) 63.4 %; Platelet Count 101 K/uL (130-400); RDW Coefficient of Variation 15.6 % (11.5-14.5); RDW Standard Deviation 61.2 fL (36.4-46.3); Red Blood Count 3.22 M/uL (4.2-5.4); White Blood Count 5.56 K/uL (4.8-10.8)
[2021-04-19] MEDS: MONTELUKAST SODIUM 10 MG TABLET PO SCH (09:44)
[2021-04-19] MEDS: PANTOprazole 40 MG TAB PO SCH (09:44)
[2021-04-19] MEDS: CEROVITE ADV FORMULA TAB PO SCH (09:44)
[2021-04-19] MEDS: METOPROLOL TARTRATE 25 MG TAB PO SCH (09:45)
[2021-04-19] MEDS: LORATADINE 10 MG TAB PO SCH (09:45)
[2021-04-19] MEDS: LEVOTHYROXINE SODIUM 75 MCG TABLET PO SCH (09:45)
[2021-04-19 10:03] LABS: BUN Creatinine Ratio 6.5 (10-20); Calcium 8.9 mg/dl (8.5-10.1); Creatinine Clr Calc Pharmacy 7.6 ml/min; Est GFR (African American) 6.8 ml/min; Est GFR (Non-African American) 5.9 ml/min
[2021-04-19] MEDS: INSULIN ASPART 100 UNITS/ML 3 ML PEN SC SCH ×4 (10:39→21:12)
[2021-04-19] MEDS: INSULIN GLARGINE SOLOSTAR 100 UNITS/ML 3 ML PEN SC SCH ×2 (10:39→21:13)
[2021-04-19] MEDS: TORSEMIDE 20 MG TAB PO SCH (10:40)
[2021-04-19] MEDS: GABAPENTIN 100 MG CAP PO SCH ×2 (11:29→20:08)
[2021-04-19] MEDS: HEPARIN SOD 5,000 UNIT/0.5 ML VIAL SQ SCH ×2 (11:30→20:08)
--- NOTE | 2021-04-19 11:52 | Progress Notes ---
DATE OF SERVICE: 04/19/2021. REASON FOR CONSULTATION: Change in mentation. HISTORY OF PRESENT ILLNESS: The patient is an 80-year-old wheelchair bound patient with end-stage renal disease, on hemodialysis, diabetes requiring insulin, hypertension, reflux, nonobstructive coronary artery disease, paroxysmal atrial fibrillation, not on anticoagulation, history of breast cancer, status post partial mastectomy, diastolic dysfunction, pulmonary hypertension, dyslipidemia, and hypothyroidism, who presented on 04/08/2021 for syncopal episode prior to dialysis. Her initial heart rate at that time was in the 30s and she was hypoxic, requiring nonrebreather mask to maintain saturation. In the Emergency Room, she seemed to be stabilizing, but then respiratory status worsened and she was placed on BiPAP. Her blood pressures dropped into the 80s systolic and imaging was consistent with fluid overload. Her initial creatinine on admission was 4.89 and her ABG was 7.4/50/37. Her chest x-ray was consistent with volume overload and subsequently she was diagnosed with pneumonia and a pleural effusion. It sounds as if from review that her mental status has fluctuated. I discussed with the nurse who is currently caring for her and he indicates that in his care over the last 2 days, she has been about the same. She moans at times, can get agitated at times. Dr. Zheng's note from yesterday indicates that when she spoke to the patient's son that she tended to have delirium when she was hospitalized in the past. Palliative care is being considered. By way of review, her most recent creatinine is 6.1 with post-dialysis being 3.92. Her ammonia level was normal. Her blood sugars have been in the 60s. Her thyroid function was normal. There was mild elevation of liver function. Her hospitalization was notable for requiring supplemental oxygen and pressors as well as antibiotics, and tapping of pleural effusion, which was thought to be a transudate. CT of the head, which I have reviewed, performed on 04/18/2021 for altered mental status, shows no acute intracranial pathology, mild cortical and cerebral atrophy and remote small vessel changes. An old lacunar infarction is noted in the thalamus on the right. Her white count today is 5.56, H and H 11/35. Her MCV is 109 and platelet count 101. Her last blood gas was performed yesterday was 7.34, 55, pO2 of 105 on 3 L. Her serum sodium today is 138, BUN 39/6.12, glucose 68, calcium 8.9, potassium 4.0. Her last electrocardiogram on 04/08/2021 showed sinus bradycardia with sinus arrhythmia, nonspecific intraventricular conduction delay. Current vital signs 36.1, 98/44, 96% and the patient is variably on room air or an OxyMask with a 5 L flow. Her pulse is 88. PAST MEDICAL HISTORY: As above. Additionally, breast cancer, status post radiation, history of DVT, left upper extremity, hyperlipidemia, hypothyroidism, left bundle branch block, morbid obesity, nonischemic cardiomyopathy, peripheral neuropathy, right pleural effusion. PAST SURGICAL HISTORY: Arteriovenous fistula, left arm, appendectomy, cardiac cath, cataract surgery, right lumpectomy, status post aneurysm repair, AV fistula. FAMILY HISTORY: Of diabetes and heart disease. SOCIAL HISTORY: Unknown if ever smoked. Alcohol use: None. The patient, I believe, lives in an assisted living facility or [facility]. CURRENT MEDICATIONS: Atorvastatin, gabapentin 100 mg at bedtime, levothyroxine, loratadine, multiple vitamins, pantoprazole, insulin, subcutaneous heparin q.12 and torsemide. OBJECTIVE: The patient is sleepy, intermittently moaning. She was able to take a crushed pill with applesauce without choking as given by nursing. She was unable to state her name or follow commands. She moved her head side to side in the bed. Her pupils appear to be equal. I could not keep her eyes open to check for pupillary responses. No fixed gaze preference. No facial asymmetry. The patient moved both upper and lower extremities symmetrically. Venous stasis pigmentary changes are noted in the feet. Minimal pretibial edema. Tone was symmetric. Reflex may have been mildly increased in the left upper and left lower. Toes were downgoing. Sensory, cerebellar and gait were not testable. There were no carotid bruits, no heart murmurs. Heart is regular rate and rhythm. Her neck was supple. IMPRESSION AND PLAN: This patient's neurologic exam is nonfocal. She appears encephalopathic, which is probably poly factorial related to acute renal failure, hypotension, hypoxemia, bradycardia. I do not know her baseline pCO2, but that may be contributing to her CO2 retention may be contributing to her encephalopathy. Defer to hospitalist team as to whether or not that needs to be repeated. She is also recovering from a pneumonia. I would recommend a CT of the head noncontrast to rule out a large infarction, which I see no clinical evidence of, a routine EEG to rule out subclinical status. If the etiology of the elevated MCV is not known, consider checking B12, methylmalonic acid, and folic acid. Consider thiamine supplementation if the patient has not been taking by mouth well. By report this pt has had a history of delirium while hospitalized. will sign off but will check EEG results. Job ID: [id number] [facility]
--- NOTE | 2021-04-19 18:31 | Hospitalist Progress Note ---
Date of Service April 19, 2021 Assessment & Plan (1) Respiratory failure, acute: Plan: Per ' notes with addendum: (1) Acute respiratory failure with hypoxia, hypercarbia Plan: Secondary to fluid overload in setting of end-stage renal disease on dialysis. Possible community-acquired, aspiration pneumonia Appreciate nephrology input. New with routine dialysis Tuesday/Tuesday/Tuesday. --Chest x-ray showing increased pleural effusion in the right side --Patient placed on BiPAP yesterday afternoon due to lethargy Repeat ABG this morning about the same as yesterday with pH of 7.3, bicarb 57 However patient appears to be a little bit more awake today, was able to answer in phrases this morning, had some lunch --Case discussed with patient's son Anthony in the afternoon Requested to speak with Dr. Marcus --Messaged Dr. Marcus At this point he does not recommend any procedures including pleural catheter placement at this time due to possible entrapped lung Recommends palliative care approach Dr. Marcus tried to reach Anthony today but was unsuccessful --Continue BiPAP for now Palliative care on board 04/19/2021 Patient remains on 3 L of nasal cannula refuses Bipap good o2 sats not in respiratory distress Repeat chest x-ray: Improving right-sided pleural effusion Pulmonary service not recommending thoracentesis or pleural catheter placement at this point ABG about the same pH 7.3, bicarb 57-60, per review of records, this appears to be chronic Continue ESRD for fluid management Completed 5 to 6 days of ceftriaxone doxycycline, and 5 days of Zosyn DC'd antibiotics Monitor closely Altered mental status likely secondary to metabolic encephalopathy --Likely secondary to hypercarbia, hypoxia, underlying pneumonia Hospital delirium? --Per patient's son Anthony, patient usually develops delirium while in the hospital, resolves upon returning to home Patient awake, able to eat more, take medications, no respiratory distress- but still very confused --Management of hypoxia, hypercarbia, pneumonia as above -- Neurologist consulted (2) RLL pneumonia: Plan: --Ceftriaxone plus doxycycline given for 5 to 6 days --IV Zosyn given x5 days --Afebrile --DC antibiotics for now Monitor closely (3) Volume overload: Plan: Torsemide TuThSaSu schedule which is the opposite day from her dialysis. (4) Hypotension: Plan: BP on the lower side Monitor (5) Pleural effusion on right: Plan: Chronic issue, s/p thoracentesis earlier in the year revealing transudate. --Plan per #1 (6) Systolic and diastolic CHF w/reduced LV function, NYHA class 4: Plan: NICM with known EF 25%. Chronically on torsemide as outpatient. Also lisinopril 2.5mg, held in hypotension. Does have persistent pleural effusion. Continue with the [employer]OR[employer] DECORATOR torsemide 80 mg on Tuesday/Tuesday//Tuesday. (7) Hypothyroidism: Plan: Cont synthroid per home regimen. (8) Diabetes mellitus type 2, insulin dependent: Plan: Euglycemic on current inpatient regimen. Nausea/vomiting/abdominal pain -resolved CT abdomen/pelvis was obtained however it was negative for any acute findings. Her symptoms resolved. Was started back on diet. (9) DVT prophylaxis: Plan: Heparin DNR/DNI Dispo-pending Admission and Anticipated Discharge Date Admission Date: April 08, 2021 Subjective ff up for volume overload, esrd, etc seen with DINING ROOM HELPER at bedside patient awake, appears drowsy, confused nods head to all questions full ROS difficult to assess due to cognitive status had a few bites for breakfast refusing Bipap, ok with oxymask no other issues per booking clerk of Systems Review of Systems: all noted and negative except for above Physical Exam Physical Exam: General- oriented x 0, not in distress, breathing with no effort or accessory muscle use Eyes- anicteric Neck- no JVD Lungs- mild decreased breath sounds on the left, clear on the right no wheezing Heart- normal rate, regular rhythm; no murmurs Abdomen- normal bowel sounds, nondistended, soft, nontender Extremities- no pretibial edema, no calf tenderness Neuro- alert, oriented x 0; confused, no gross focal neurologic deficits Skin- warm & dry Results & Data Results & Data ([facility]) Vital Signs (Past 12 Hours) Vital Signs Temp Pulse Pulse Resp BP Pulse Ox 04/19/21 16:15 87 04/19/21 14:50 36 C L 95 H 20 125/65 93 04/19/21 10:44 36.4 C L 89 20 104/53 L 94 04/19/21 08:00 77 04/19/21 07:59 36.1 C L 88 20 98/44 L 96 all noted and reviewed including below (1) Respiratory failure, acute Respiratory failure complication: hypoxia Qualified Code(s): J96.01 - Acute respiratory failure with hypoxia
[2021-04-19] MEDS: ATORVASTATIN 10 MG TAB PO SCH (20:08)
[2021-04-20] MEDS: PANTOprazole 40 MG TAB PO SCH (08:07)
[2021-04-20] MEDS: THIAMINE HCL 100 MG TAB PO SCH (08:07)
[2021-04-20] MEDS: CEROVITE ADV FORMULA TAB PO SCH (08:08)
[2021-04-20] MEDS: LORATADINE 10 MG TAB PO SCH (08:08)
[2021-04-20] MEDS: MONTELUKAST SODIUM 10 MG TABLET PO SCH (08:08)
[2021-04-20] MEDS: GABAPENTIN 100 MG CAP PO SCH ×2 (08:09→20:33)
[2021-04-20] MEDS: LEVOTHYROXINE SODIUM 75 MCG TABLET PO SCH (08:09)
[2021-04-20] MEDS: METOPROLOL TARTRATE 25 MG TAB PO SCH (08:15)
[2021-04-20] MEDS: INSULIN ASPART 100 UNITS/ML 3 ML PEN SC SCH ×4 (08:45→20:46)
[2021-04-20] MEDS: INSULIN GLARGINE SOLOSTAR 100 UNITS/ML 3 ML PEN SC SCH ×2 (08:45→20:46)
[2021-04-20] MEDS: HEPARIN SOD 5,000 UNIT/0.5 ML VIAL SQ SCH ×2 (08:52→20:34)
[2021-04-20 09:36] LABS: Folate (Folic Acid) > 20.00 ng/ml (>5.38); Vitamin B12 1842 pg/ml (193-986)
--- NOTE | 2021-04-20 11:22 | Hospitalist Progress Note ---
Date of Service April 20, 2021 Assessment & Plan (1) Respiratory failure, acute: Plan: Per ' notes with addendum: (1) Acute respiratory failure with hypoxia, hypercarbia Plan: Secondary to fluid overload in setting of end-stage renal disease on dialysis. Possible community-acquired, aspiration pneumonia Appreciate nephrology input. New with routine dialysis Tuesday/Tuesday/Tuesday. --Chest x-ray showing increased pleural effusion in the right side --Patient placed on BiPAP yesterday afternoon due to lethargy Repeat ABG this morning about the same as yesterday with pH of 7.3, bicarb 57 However patient appears to be a little bit more awake today, was able to answer in phrases this morning, had some lunch --Case discussed with patient's son Anthony in the afternoon Requested to speak with Dr. Marcus --Messaged Dr. Marcus At this point he does not recommend any procedures including pleural catheter placement at this time due to possible entrapped lung Recommends palliative care approach Dr. Marcus tried to reach Anthony today but was unsuccessful --Continue BiPAP for now Palliative care on board 04/20/2021 Patient remains stable on 3 L of nasal cannula refuses Bipap good o2 sats not in respiratory distress Repeat chest x-ray: Improving right-sided pleural effusion Pulmonary service not recommending thoracentesis or pleural catheter placement at this point ABG about the same pH 7.3, bicarb 57-60, per review of records, this appears to be chronic Continue ESRD for fluid management Completed 5 to 6 days of ceftriaxone doxycycline, and 5 days of Zosyn DC'd antibiotics Monitor closely For HD today, hopefully will also assist with improvement of right-sided pleural effusion will order repeat chest x-ray tomorrow Altered mental status likely secondary to metabolic encephalopathy --Likely secondary to hypercarbia, hypoxia, underlying pneumonia Hospital delirium? --Per patient's son Anthony, patient usually develops delirium while in the hospital, resolves upon returning to home Patient awake, able to eat more, take medications, no respiratory distress- but still very confused --Management of hypoxia, hypercarbia, pneumonia as above -- Neurologist consulted B12, folic acid, methylmalonic acid levels ordered EEG ordered 04/20/2021 Appears to be calm, more coherent today although tired Continue to monitor closely Palliative care service on board (2) RLL pneumonia: Plan: --Ceftriaxone plus doxycycline given for 5 to 6 days --IV Zosyn given x5 days --Afebrile --Antibiotics discontinued Monitor closely (3) Volume overload: Plan: Torsemide TuThSaSu schedule which is the opposite day from her dialysis. (4) Hypotension: Plan: BP on the lower side Monitor (5) Pleural effusion on right: Plan: Chronic issue, s/p thoracentesis earlier in the year revealing transudate. --Plan per #1 (6) Systolic and diastolic CHF w/reduced LV function, NYHA class 4: Plan: NICM with known EF 25%. Chronically on torsemide as outpatient. Also lisinopril 2.5mg, held in hypotension. Does have persistent pleural effusion. 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 (7) Hypothyroidism: Plan: Cont synthroid per home regimen. (8) Diabetes mellitus type 2, insulin dependent: Plan: Euglycemic on current inpatient regimen. Nausea/vomiting/abdominal pain -resolved CT abdomen/pelvis was obtained however it was negative for any acute findings. Her symptoms resolved. Tolerating current diet (9) DVT prophylaxis: Plan: Heparin DNR/DNI Dispo-pending Admission and Anticipated Discharge Date Admission Date: April 08, 2021 Subjective Follow-up for volume overload, ESRD, right-sided pleural effusion, etc. Seen while having hemodialysis Patient sleeping but easily awakened Calm, cooperative Able to tell me her name, her son's name, patient lives Appears sleepy, tired States she feels fine overall Denies shortness of breath, chest pain, palpitations, dizziness, abdominal pain, nausea vomiting, cough No other symptoms Review of Systems Review of Systems: all noted and negative except for above Physical Exam Physical Exam: General- oriented x1-2 , not in distress, speaks in sentences with no effort or accessory muscle use Eyes- anicteric Neck- no JVD Lungs-mild decreased breath sounds at the right base, clear on the left No wheezing Heart- normal rate, regular rhythm; no murmurs Abdomen- normal bowel sounds, nondistended, soft, no tenderness in all quadrants Extremities- no pretibial edema, no calf tenderness Neuro- alert, oriented x 1-2; no gross focal neurologic deficits Skin- warm & dry Results & Data Results & Data ([place]) Vital Signs (Past 12 Hours) Vital Signs Temp Pulse Pulse Pulse Pulse Resp BP 04/20/21 10:40 119 H 107/59 L 04/20/21 10:20 120 H 107/60 04/20/21 10:00 91 H 112/67 04/20/21 09:40 91 H 114/62 04/20/21 09:20 96 H 135/67 04/20/21 09:07 36.6 C 93 H 04/20/21 08:36 36.2 C L 95 H 14 04/20/21 07:17 65 04/20/21 03:23 36.6 C 86 18 04/20/21 01:15 95 H BP Pulse Ox 04/20/21 10:40 04/20/21 10:20 04/20/21 10:00 04/20/21 09:40 04/20/21 09:20 04/20/21 09:07 04/20/21 08:36 111/67 99 04/20/21 07:17 04/20/21 03:23 105/60 100 04/20/21 01:15 all noted and reviewed including below (1) Respiratory failure, acute Respiratory failure complication: hypoxia Qualified Code(s): J96.01 - Acute respiratory failure with hypoxia
--- NOTE | 2021-04-20 14:28 | Palliative Care Progress Note ---
Date of Service April 20, 2021 Assessment & Plan (1) Dyspnea: Plan: On O2 with hemodialysis for fluid balance (2) Palliative care encounter: Plan: I talked with her son Anthony. His covid test was positive. He tells me that he has thought about what to do for his mother's care and talked to other family members. He personally is inclined to pursue comfort directed care but is not comfortable making that decision without talking to Silva as he notes that she has said that she would want to take the risk on prior procedures. He asked about prognosis and hospice. We discussed that hospice care would mean decision to discontinue further dialysis which would likely mean a prognosis of days. He thanked me for the information and said that he will consider it. (3) Acute on chronic systolic CHF (congestive heart failure): (4) ESRD (end stage renal disease): (5) Metabolic encephalopathy: Admission and Anticipated Discharge Date Admission Date: April 08, 2021 Subjective Recently returned from dialysis. Sleeping. Arouses briefly. Does not respond to any questions. Appears comfortable. Review of Systems Review of Systems: Unobtainable due to reduced consciousness [place] Symptom Assessment Scale Pain 0/3 by observation Dyspnea 1/3 by observation Palliative Performance Score 30% Physical Exam Constitutional: + ill appearing and + lethargic Respiratory: + uses accessory muscles Cardiovascular: Rate/Rhythm: + tachycardic and + irregularly irregular Results & Data ([facility]) Vital Signs (Past 12 Hours) Vital Signs Temp Pulse Pulse Pulse Pulse Resp BP 04/20/21 13:20 98.6 F 117 H 18 04/20/21 12:20 119 H 111/65 04/20/21 12:00 117 H 109/57 L 04/20/21 11:40 118 H 102/60 04/20/21 11:20 97 H 106/79 04/20/21 11:00 128 H 108/68 04/20/21 10:40 119 H 107/59 L 04/20/21 10:20 120 H 107/60 04/20/21 10:00 91 H 112/67 04/20/21 09:40 91 H 114/62 04/20/21 09:20 96 H 135/67 04/20/21 09:07 97.9 F 93 H 04/20/21 08:36 97.2 F L 95 H 14 04/20/21 07:17 65 04/20/21 03:23 97.9 F 86 18 BP Pulse Ox 04/20/21 13:20 107/51 L 100 04/20/21 12:20 04/20/21 12:00 04/20/21 11:40 04/20/21 11:20 04/20/21 11:00 04/20/21 10:40 04/20/21 10:20 04/20/21 10:00 04/20/21 09:40 04/20/21 09:20 04/20/21 09:07 04/20/21 08:36 111/67 99 04/20/21 07:17 04/20/21 03:23 105/60 100 PG Care Time/CCT Total # of Minutes Spent Total Time Spent with Patient: Total time spent is greater than 50% in coordination of care (as documented) at patient's floor/unit and/or counseling patient: Coding Level of Care Code 12843 Subseq Hosp Care Lvl 2 Diagnoses Dyspnea R06.02 Dyspnea type: shortness of breath Palliative care encounter Z51.5 Acute on chronic systolic CHF (congestive heart failure) I50.23 ESRD (end stage renal disease) N18.6 Metabolic encephalopathy G93.41 (1) Dyspnea Dyspnea type: shortness of breath Qualified Code(s): R06.02 - Shortness of breath
--- NOTE | 2021-04-20 15:20 | Nephrology Progress Note ---
Date of Service April 20, 2021 Assessment & Plan Admission and Anticipated Discharge Date Admission Date: April 08, 2021 Subjective Assessment & Plan (1) End stage renal disease on dialysis: Plan: ESRD on dialysis Tuesday. had dialysis earlier today. Had Lot of Confusion and was difficult to do Rxed time. She has a left AV fistula which is working well. no new labs Reviewed Palliative med consult and what son said. for now next Dialysis will be tuesday. Subjective still needing a sitter. restless; still w/ diminished MS Review of Systems Review of Systems: Unobtainable due to reduced consciousness Physical Exam Constitutional: well developed, well nourished, + obese, + altered mental status and + lethargic; no acute distress Eyes: EOM intact bilaterally ENMT: Ears: no external ear abnormality Nose: no external nose abnormality Mouth: + dry oral mucous membranes Neck: no nuchal rigidity Respiratory: normal respiratory effort and + grunting; no cough Auscultation: + diminished lung sounds, + rhonchi and + wheezes Cardiovascular: Rate/Rhythm: regular rate and regular rhythm Heart Sounds: normal S1 and normal S2 Extremities: + AV fistula (+t/b); no edema Gastrointestinal (Abdomen): Inspection/Auscultation: normal bowel sounds Percussion/Palpation: abdomen soft; abdomen nontender Musculoskeletal: Extremities: strength 5/5 throughout Skin: no rashes, warm and dry Neurologic: rae, generalized weakness; opens eyes briefly answer 2-3 Y/N questions not always appropriately Results & Data ([facility]) Vital Signs (Past 12 Hours) Vital Signs Temp Pulse Pulse Pulse Pulse Resp BP 04/20/21 15:08 36.9 C 78 21 04/20/21 13:20 37.0 C 117 H 18 04/20/21 12:20 119 H 111/65 04/20/21 12:00 117 H 109/57 L 04/20/21 11:40 118 H 102/60 04/20/21 11:20 97 H 106/79 04/20/21 11:00 128 H 108/68 04/20/21 10:40 119 H 107/59 L 04/20/21 10:20 120 H 107/60 04/20/21 10:00 91 H 112/67 04/20/21 09:40 91 H 114/62 04/20/21 09:20 96 H 135/67 04/20/21 09:07 36.6 C 93 H 04/20/21 08:36 36.2 C L 95 H 14 04/20/21 07:17 65 04/20/21 03:23 36.6 C 86 18 BP Pulse Ox 04/20/21 15:08 123/86 100 04/20/21 13:20 107/51 L 100 04/20/21 12:20 04/20/21 12:00 04/20/21 11:40 04/20/21 11:20 04/20/21 11:00 04/20/21 10:40 04/20/21 10:20 04/20/21 10:00 04/20/21 09:40 04/20/21 09:20 04/20/21 09:07 04/20/21 08:36 111/67 99 04/20/21 07:17 04/20/21 03:23 105/60 100
[2021-04-20] MEDS: ATORVASTATIN 10 MG TAB PO SCH (20:33)
[2021-04-21] MEDS: MONTELUKAST SODIUM 10 MG TABLET PO SCH (08:04)
[2021-04-21] MEDS: LORATADINE 10 MG TAB PO SCH (08:04)
[2021-04-21] MEDS: TORSEMIDE 20 MG TAB PO SCH (08:04)
[2021-04-21] MEDS: THIAMINE HCL 100 MG TAB PO SCH (08:05)
[2021-04-21] MEDS: PANTOprazole 40 MG TAB PO SCH (08:05)
[2021-04-21] MEDS: METOPROLOL TARTRATE 25 MG TAB PO SCH (08:05)
[2021-04-21] MEDS: HEPARIN SOD 5,000 UNIT/0.5 ML VIAL SQ SCH ×2 (08:05→22:25)
[2021-04-21] MEDS: CEROVITE ADV FORMULA TAB PO SCH (08:05)
[2021-04-21] MEDS: LEVOTHYROXINE SODIUM 75 MCG TABLET PO SCH (08:06)
[2021-04-21] MEDS: GABAPENTIN 100 MG CAP PO SCH ×2 (08:08→22:25)
[2021-04-21] MEDS: INSULIN ASPART 100 UNITS/ML 3 ML PEN SC SCH ×4 (08:12→22:25)
[2021-04-21] MEDS: INSULIN GLARGINE SOLOSTAR 100 UNITS/ML 3 ML PEN SC SCH ×2 (08:12→22:25)
[2021-04-21] MEDS: guaiFENesin/DEXTROM SYRUP 200MG/20MG 10ML UDC PO PRN (11:17)
--- NOTE | 2021-04-21 13:12 | Hospitalist Progress Note ---
Date of Service April 21, 2021 Assessment & Plan (1) Respiratory failure, acute: Plan: Per ' notes with addendum: (1) Acute respiratory failure with hypoxia, hypercarbia Plan: Secondary to fluid overload in setting of end-stage renal disease on dialysis. Possible community-acquired, aspiration pneumonia Appreciate nephrology input. New with routine dialysis Tuesday/Tuesday/Tuesday. --Chest x-ray showing increased pleural effusion in the right side --Patient at one point required BiPAP for respiratory distress Repeat chest x-ray showing increasing pleural effusion the right side Associate Civil Engineer Dr. Marcus consulted he does not recommend any procedures including thoracentesis or pleural catheter placement at this time due to possible entrapped lung, history of hemothorax Recommends palliative care approach --Palliative care service discussed with patient's son Anthony He cannot visit yet because he is in isolation, being tested for Covid after her vacation Once he can visit, patient would like to see his mother 1st before making any decision -- Completed 5 to 6 days of ceftriaxone doxycycline, and 5 days of Zosyn for possible pneumoni --Patient weaned off BiPAP Currently on 3 L of oxygen via nasal cannula Has been comfortable, altered mental status seems to be improving gradually Chest x-ray also improving with hemodialysis treatments --Repeat chest x-ray pending today We will reach out to patient's son Anthony for update Continue ESRD for fluid management Altered mental status likely secondary to metabolic encephalopathy --Likely secondary to hypercarbia, hypoxia, underlying pneumonia Hospital delirium? --Per patient's son Anthony, patient usually develops delirium while in the hospital, resolves upon returning to home Patient awake, able to eat more, take medications, no respiratory distress- but still very confused --Management of hypoxia, hypercarbia, pneumonia as above -- Neurologist consulted B12, folic acid, methylmalonic acid levels ordered EEG ordered 04/20/2021 Appears to be calm, more coherent today although tired Continue to monitor closely Palliative care service on board (2) RLL pneumonia: Plan: --Ceftriaxone plus doxycycline given for 5 to 6 days --IV Zosyn given x5 days --Afebrile --Antibiotics discontinued Monitor closely (3) Volume overload: Plan: Torsemide TuThSaSu schedule which is the opposite day from her dialysis. (4) Hypotension: Plan: BP on the lower side Monitor (5) Pleural effusion on right: Plan: Chronic issue, s/p thoracentesis earlier in the year revealing transudate. --Plan per #1 (6) Systolic and diastolic CHF w/reduced LV function, NYHA class 4: Plan: NICM with known EF 25%. Chronically on torsemide as outpatient. Also lisinopril 2.5mg, held in hypotension. Does have persistent pleural effusion. Continue with the [employer] torsemide 80 mg on Tuesday/Tuesday//Tuesday. (7) Hypothyroidism: Plan: Cont synthroid per home regimen. (8) Diabetes mellitus type 2, insulin dependent: Plan: Euglycemic on current inpatient regimen. Nausea/vomiting/abdominal pain -resolved CT abdomen/pelvis was obtained however it was negative for any acute findings. Her symptoms resolved. Tolerating current diet (9) DVT prophylaxis: Plan: Heparin DNR/DNI Dispo-pending Admission and Anticipated Discharge Date Admission Date: April 08, 2021 Subjective Follow-up for [place] overload, reticular effusion, ESRD, etc. Per NECKTIE TURNER, patient had breakfast today consisting of oatmeal, milk, juice More conversant per NECKTIE TURNER staff Still gets confused mostly Seen sitting up in bed, sleeping but easily awakened On 3 L of nasal cannula, comfortable, not in distress Patient can now mention her name and son's name, where she lives but otherwise mostly confused Patient appears brighter, conversant when awake States she feels fine overall Just tired Denies shortness of breath, palpitations, dizziness, chest pain, nausea Denies fevers or chills No pain in her body No other symptoms Review of Systems Review of Systems: all noted and negative except for above Physical Exam Physical Exam: General- oriented x 1, not in distress, speaks in sentences with no effort or accessory muscle use Eyes- anicteric Neck- no JVD Lungs-mildly decreased breath sounds at the right base, clear on the left, no wheezing Heart- normal rate, regular rhythm; no murmurs Abdomen- normal bowel sounds, nondistended, soft, nontender Extremities- no pretibial edema, no calf tenderness Neuro- alert, oriented x1; no new gross focal neurologic deficits Skin- warm & dry Results & Data Results & Data ([facility]) Vital Signs (Past 12 Hours) Vital Signs Temp Pulse Pulse Resp BP Pulse Ox 04/21/21 12:50 36.6 C 96 H 22 112/73 100 04/21/21 08:00 91 H 04/21/21 07:09 36.3 C L 93 H 20 98/60 L 95 all noted and reviewed including below (1) Respiratory failure, acute Respiratory failure complication: hypoxia Qualified Code(s): J96.01 - Acute respiratory failure with hypoxia
--- NOTE | 2021-04-21 14:07 | XRay Report ---
XR chest 1V portable CLINICAL HISTORY: ff up pleural effusion TECHNIQUE: Single frontal radiograph of the chest was obtained. Comparison: Comparison is made to chest one view 04/17/2021 FINDINGS: No lines and tubes are seen. Cardiomegaly is noted. Bilateral lower lung predominant airspace opaciti es are seen. Stable moderate right pleural effusion. Likely small left pleural effusion. IMPRESSION: Moderate right and small left pleural effusion are stable to minimally decreased from prior exam. Und erlying airspace opacities are similar in appearance to prior exam. ACT 112: Negative or not required by law. Electronically signed by: Ryan Ramírez M.D. 04/21/2021 2:06 PM
[2021-04-21] MEDS: ATORVASTATIN 10 MG TAB PO SCH (22:25)
[2021-04-22] MEDS ORDERED: SODIUM CHLORIDE 0.9% 1000ML 1,000 ML IV PRN (07:00)
[2021-04-22] MEDS: INSULIN ASPART 100 UNITS/ML 3 ML PEN SC SCH ×4 (08:34→20:34)
[2021-04-22] MEDS: LEVOTHYROXINE SODIUM 75 MCG TABLET PO SCH (08:36)
[2021-04-22] MEDS: LORATADINE 10 MG TAB PO SCH (08:36)
[2021-04-22] MEDS: CEROVITE ADV FORMULA TAB PO SCH (08:36)
[2021-04-22] MEDS: MONTELUKAST SODIUM 10 MG TABLET PO SCH (08:36)
[2021-04-22] MEDS: PANTOprazole 40 MG TAB PO SCH (08:36)
[2021-04-22] MEDS: HEPARIN SOD 5,000 UNIT/0.5 ML VIAL SQ SCH ×2 (08:36→20:23)
[2021-04-22] MEDS: INSULIN GLARGINE SOLOSTAR 100 UNITS/ML 3 ML PEN SC SCH ×2 (08:36→20:29)
[2021-04-22] MEDS: THIAMINE HCL 100 MG TAB PO SCH (08:36)
[2021-04-22] MEDS: METOPROLOL TARTRATE 25 MG TAB PO SCH (08:37)
[2021-04-22] MEDS: GABAPENTIN 100 MG CAP PO SCH ×2 (08:37→20:23)
--- NOTE | 2021-04-22 10:51 | Dialysis Progress Note ---
Date of Service April 22, 2021 Assessment & Plan Admission and Anticipated Discharge Date Admission Date: April 08, 2021 Subjective Assessment & Plan (1) End stage renal disease on dialysis: Plan: ESRD on dialysis Tuesday. For 3 hr -about 2 to 2.5 as tolerated. Much less fluid overloaded than few days ago. Subjective Seen during Dialysis. AVF fine She looks much more alert today. able to talk. Less SOB. Review of Systems Review of Systems: Unobtainable due to reduced consciousness Physical Exam Constitutional: well developed, well nourished, + obese, + altered mental status and + lethargic; no acute distress Eyes: EOM intact bilaterally ENMT: Ears: no external ear abnormality Nose: no external nose abnormality Mouth: + dry oral mucous membranes Neck: no nuchal rigidity Respiratory: normal respiratory effort and + cough (paroxysms of cough) Auscultation: + diminished lung sounds (no obvious difference one side versus other) Cardiovascular: Rate/Rhythm: regular rate and regular rhythm Heart Sounds: normal S1 and normal S2 Extremities: + AV fistula (+t/b); no edema Gastrointestinal (Abdomen): Inspection/Auscultation: normal bowel sounds Percussion/Palpation: abdomen soft; abdomen nontender Musculoskeletal: strength abnormal Skin: no rashes, warm and dry Results & Data ([facility]) Vital Signs (Past 12 Hours) Vital Signs Temp Pulse Pulse Pulse Resp BP BP 04/22/21 09:40 96 H 93/44 L 04/22/21 09:20 98 H 92/49 L 04/22/21 09:11 36.9 C 101 H 04/22/21 07:54 93 H 04/22/21 07:28 36.9 C 99 H 16 96/57 L 04/22/21 06:26 95 H 04/22/21 03:04 36.6 C 68 18 116/69 04/22/21 00:14 36.7 C 97 H 20 115/68 Pulse Ox 04/22/21 09:40 04/22/21 09:20 04/22/21 09:11 04/22/21 07:54 04/22/21 07:28 90 04/22/21 06:26 04/22/21 03:04 94 04/22/21 00:14 100
--- NOTE | 2021-04-22 18:04 | Hospitalist Progress Note ---
Date of Service April 22, 2021 Assessment & Plan (1) Respiratory failure, acute: Plan: (1) Acute respiratory failure with hypoxia, hypercarbia Secondary to fluid overload in setting of end-stage renal disease on dialysis. Possible community-acquired, aspiration pneumonia Chest x-ray showing increased pleural effusion in the right side Patient at one point required BiPAP for respiratory distress Has been getting dialysis Tuesday/Tuesday/Tuesday. 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 Marcus consulted he does not recommend any procedures including thoracentesis or pleural catheter placement at this time due to possible entrapped lung, history of hemothorax Palliative care service discussed with patient's son Anthony He cannot visit yet because he is in isolation, being tested for Covid after her vacation Once he can visit, patient would like to see his mother 1st before making any decision Complete course of antibiotic with ceftriaxone, Doxy, and Zosyn Patient weaned off BiPAP, Currently on 3 L of oxygen via nasal cannula Clinically improved Continue HD for fluid management Altered mental status likely secondary to metabolic encephalopathy Likely secondary to hypercarbia, hypoxia, underlying pneumonia and delirium Per patient's son Anthony, patient usually develops delirium while in the hospital, resolves upon returning to home Neurologist consulted Stable (2) RLL pneumonia: Completed a course of antibiotic with ceftriaxone and doxycycline and IV Zosyn given x5 days --Afebrile --Antibiotics discontinued Monitor closely (3) Volume overload: Torsemide TuThSaSu schedule which is the opposite day from her dialysis. (4) Hypotension: BP on the lower side Monitor (5) Pleural effusion on right: Chronic issue, s/p thoracentesis earlier in the year revealing transudate. (6) Systolic and diastolic CHF w/reduced LV function, NYHA class 4: NICM with known EF 25%. Chronically on torsemide as outpatient. Also lisinopril 2.5mg, held in hypotension. Does have persistent pleural effusion. Continue with the [employer] torsemide 80 mg on Tuesday/Tuesday//Tuesday. (7) Hypothyroidism: Cont synthroid per home regimen. (8) Diabetes mellitus type 2, insulin dependent: Euglycemic on current inpatient regimen. Nausea/vomiting/abdominal pain -resolved CT abdomen/pelvis was obtained however it was negative for any acute findings. Her symptoms resolved. Diet advance as tolerated (9) DVT prophylaxis: Heparin DNR/DNI Disposition Waiting for placement to rehab Admission and Anticipated Discharge Date Admission Date: April 08, 2021 Subjective Patient was seen and examined for follow-up of shortness of breath Lying in bed with no acute distress Currently saturating well on 2 L nasal cannula She said that she had hemodialysis done earlier today Denies any chest pain, palpitation, dizziness, shortness of breath. Review of Systems Review of Systems: All systems reviewed & are unremarkable except as noted in Subjective Physical Exam Physical Exam: General- No acute distress Head- atraumatic Eyes- PERRL, EOMI, ENT- oropharynx clear Neck- supple, no JVD Lungs- clear to auscultation Heart- regular rhythm Abdomen- normal bowel sounds, soft, nontender Extremities- no calf tenderness Neuro- alert, oriented, PERRL, EOMI; no facial palsy; no dysarthria Skin- warm & dry Results & Data Results & Data ([facility]) Vital Signs (Past 12 Hours) Vital Signs Temp Pulse Pulse Pulse Resp BP BP 04/22/21 16:00 99 H 04/22/21 15:48 37.0 C 100 H 16 107/63 04/22/21 14:49 36.8 C 97 H 18 95/58 L 04/22/21 13:30 37 C 102 H 20 107/72 04/22/21 12:40 37.0 C 94 H 104/49 L 04/22/21 12:00 94 H 104/49 L 04/22/21 11:40 95 H 102/54 L 04/22/21 11:20 99 H 98/65 L 04/22/21 11:00 94 H 102/56 L 04/22/21 10:40 96 H 104/53 L 04/22/21 10:20 96 H 90/47 L 04/22/21 10:00 95 H 88/43 L 04/22/21 09:40 96 H 93/44 L 04/22/21 09:20 98 H 92/49 L 04/22/21 09:11 36.9 C 101 H 04/22/21 07:54 93 H 04/22/21 07:28 36.9 C 99 H 16 96/57 L 04/22/21 06:26 95 H Pulse Ox 04/22/21 16:00 04/22/21 15:48 100 04/22/21 14:49 100 04/22/21 13:30 100 04/22/21 12:40 04/22/21 12:00 04/22/21 11:40 04/22/21 11:20 04/22/21 11:00 04/22/21 10:40 04/22/21 10:20 04/22/21 10:00 04/22/21 09:40 04/22/21 09:20 04/22/21 09:11 04/22/21 07:54 04/22/21 07:28 90 04/22/21 06:26 (1) Respiratory failure, acute Respiratory failure complication: hypoxia Qualified Code(s): J96.01 - Acute respiratory failure with hypoxia
[2021-04-22] MEDS: ATORVASTATIN 10 MG TAB PO SCH (20:24)
[2021-04-22] MEDS: COUGH DROP (SUGAR FREE) LOZ 24 LOZ/1 BOX BUCCAL PRN (22:25)
[2021-04-22] MEDS: guaiFENesin/DEXTROM SYRUP 200MG/20MG 10ML UDC PO PRN (22:25)
[2021-04-23] MEDS: COUGH DROP (SUGAR FREE) LOZ 24 LOZ/1 BOX BUCCAL PRN ×5 (01:27→09:04)
[2021-04-23] MEDS: guaiFENesin/DEXTROM SYRUP 200MG/20MG 10ML UDC PO PRN ×2 (05:51→12:13)
[2021-04-23] MEDS: LORATADINE 10 MG TAB PO SCH (08:52)
[2021-04-23] MEDS: PANTOprazole 40 MG TAB PO SCH (08:53)
[2021-04-23] MEDS: LEVOTHYROXINE SODIUM 75 MCG TABLET PO SCH (08:53)
[2021-04-23] MEDS: GABAPENTIN 100 MG CAP PO SCH ×2 (08:53→20:28)
[2021-04-23] MEDS: CEROVITE ADV FORMULA TAB PO SCH (08:53)
[2021-04-23] MEDS: METOPROLOL TARTRATE 25 MG TAB PO SCH (08:53)
[2021-04-23] MEDS: INSULIN GLARGINE SOLOSTAR 100 UNITS/ML 3 ML PEN SC SCH ×2 (08:54→20:30)
[2021-04-23] MEDS: THIAMINE HCL 100 MG TAB PO SCH (08:54)
[2021-04-23] MEDS: TORSEMIDE 20 MG TAB PO SCH (08:54)
[2021-04-23] MEDS: HEPARIN SOD 5,000 UNIT/0.5 ML VIAL SQ SCH ×2 (08:54→20:28)
[2021-04-23] MEDS: MONTELUKAST SODIUM 10 MG TABLET PO SCH (08:54)
[2021-04-23] MEDS: INSULIN ASPART 100 UNITS/ML 3 ML PEN SC SCH ×4 (08:55→20:30)
[2021-04-23] MEDS: ATORVASTATIN 10 MG TAB PO SCH (20:28)
[2021-04-23] MEDS: OLANZapine 10 MG/2.1 ML SDV IM PRN (23:00)
--- NOTE | 2021-04-24 00:07 | Hospitalist Progress Note ---
Date of Service April 23, 2021 Assessment & Plan (1) Respiratory failure, acute: Plan: (1) Acute respiratory failure with hypoxia, hypercarbia Secondary to fluid overload in setting of end-stage renal disease on dialysis. Possible community-acquired, aspiration pneumonia Chest x-ray showing increased pleural effusion in the right side Patient at one point required BiPAP for respiratory distress Has been getting dialysis Tuesday/Tuesday/Tuesday. Repeat chest x-ray showing increasing pleural effusion the right side [employer] Dr. Marcus consulted he does not recommend any procedures including thoracentesis or pleural catheter placement at this time due to possible entrapped lung, history of hemothorax Palliative care service discussed with patient's son Anthony He cannot visit yet because he is in isolation, being tested for Covid after her vacation Once he can visit, patient would like to see his mother 1st before making any decision Complete course of antibiotic with ceftriaxone, Doxy, and Zosyn Patient weaned off BiPAP, Currently on 3 L of oxygen via nasal cannula Clinically improved Continue HD for fluid management Altered mental status likely secondary to metabolic encephalopathy Likely secondary to hypercarbia, hypoxia, underlying pneumonia and delirium Per patient's son Anthony, patient usually develops delirium while in the hospital, resolves upon returning to home Neurologist consulted Stable (2) RLL pneumonia: Completed a course of antibiotic with ceftriaxone and doxycycline and IV Zosyn given x5 days --Afebrile --Antibiotics discontinued Monitor closely (3) Volume overload: Torsemide TuThSaSu schedule which is the opposite day from her dialysis. (4) Hypotension: BP on the lower side Monitor (5) Pleural effusion on right: Chronic issue, s/p thoracentesis earlier in the year revealing transudate. (6) Systolic and diastolic CHF w/reduced LV function, NYHA class 4: NICM with known EF 25%. Chronically on torsemide as outpatient. Also lisinopril 2.5mg, held in hypotension. Does have persistent pleural effusion. 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 (7) Hypothyroidism: Cont synthroid per home regimen. (8) Diabetes mellitus type 2, insulin dependent: Euglycemic on current inpatient regimen. Nausea/vomiting/abdominal pain -resolved CT abdomen/pelvis was obtained however it was negative for any acute findings. Her symptoms resolved. Diet advance as tolerated (9) DVT prophylaxis: Heparin DNR/DNI Disposition Waiting for placement to rehab Admission and Anticipated Discharge Date Admission Date: April 08, 2021 Subjective Patient was seen and examined for follow-up of shortness of breath Lying in bed with no acute distress Currently saturating well on 2 L nasal cannula Denies any chest pain, palpitation, dizziness, shortness of breath. Review of Systems Review of Systems: All systems reviewed & are unremarkable except as noted in Subjective Physical Exam Physical Exam: General- No acute distress Head- atraumatic Eyes- PERRL, EOMI, ENT- +decrease hearing function Neck- supple, no JVD Lungs- clear to auscultation Heart- regular rhythm Abdomen- normal bowel sounds, soft, nontender Extremities- no calf tenderness Neuro- alert, oriented, PERRL, EOMI; no facial palsy; no dysarthria Skin- warm & dry Results & Data Results & Data ([facility]) Vital Signs (Past 12 Hours) Vital Signs Temp Pulse Pulse Pulse Resp BP Pulse Ox 04/24/21 00:00 77 04/23/21 23:55 88 20 95 04/23/21 23:17 36.5 C 72 20 104/64 97 04/23/21 19:51 36.9 C 87 18 93/56 L 100 04/23/21 16:00 81 04/23/21 15:09 36.5 C 81 20 121/66 100 (1) Respiratory failure, acute Respiratory failure complication: hypoxia Qualified Code(s): J96.01 - Acute respiratory failure with hypoxia
[2021-04-24] MEDS ORDERED: EPOETIN ALFA 4,000 UNIT/ML VIAL IV ONE (07:00)
[2021-04-24] MEDS ORDERED: SODIUM CHLORIDE 0.9% 1000ML 1,000 ML IV PRN (07:00)
[2021-04-24] MEDS: INSULIN ASPART 100 UNITS/ML 3 ML PEN SC SCH ×2 (08:32→13:23)
[2021-04-24] MEDS: INSULIN GLARGINE SOLOSTAR 100 UNITS/ML 3 ML PEN SC SCH (08:33)
--- NOTE | 2021-04-24 10:16 | Dialysis Progress Note ---
Date of Service April 24, 2021 Assessment & Plan Admission and Anticipated Discharge Date Admission Date: April 08, 2021 Subjective Assessment & Plan Subjective Assessment & Plan (1) End stage renal disease on dialysis: Plan: ESRD on dialysis Tuesday. For 3 hr -about 2 to 2.5 as tolerated. Much less fluid overloaded than few days ago. Subjective Seen during Dialysis. AVF fine She looks very confused and agitated today.. Calling for Sitter. AVF and BP fine. No SOB. Review of Systems Review of Systems: Unobtainable due to reduced consciousness Physical Exam Constitutional: well developed, well nourished, + obese, + altered mental status and + lethargic; no acute distress Eyes: EOM intact bilaterally ENMT: Ears: no external ear abnormality Nose: no external nose abnormality Mouth: + dry oral mucous membranes Neck: no nuchal rigidity Respiratory: normal respiratory effort and + cough (paroxysms of cough) Auscultation: + diminished lung sounds (no obvious difference one side versus other) Cardiovascular: Rate/Rhythm: regular rate and regular rhythm Heart Sounds: normal S1 and normal S2 Extremities: + AV fistula (+t/b); no edema Gastrointestinal (Abdomen): Inspection/Auscultation: normal bowel sounds Percussion/Palpation: abdomen soft; abdomen nontender Musculoskeletal: strength abnormal Skin: no rashes, warm and dry Results & Data ([facility]) Vital Signs (Past 12 Hours) Vital Signs Temp Pulse Pulse Pulse Pulse Resp BP 04/24/21 08:59 36.4 C L 82 04/24/21 07:30 36.3 C L 89 20 98/56 L 04/24/21 00:00 77 04/23/21 23:55 88 20 04/23/21 23:17 36.5 C 72 20 104/64 Pulse Ox 04/24/21 08:59 04/24/21 07:30 100 04/24/21 00:00 04/23/21 23:55 95 04/23/21 23:17 97
[2021-04-24] MEDS: PANTOprazole 40 MG TAB PO SCH (13:10)
[2021-04-24] MEDS: THIAMINE HCL 100 MG TAB PO SCH (13:10)
[2021-04-24] MEDS: LORATADINE 10 MG TAB PO SCH (13:11)
[2021-04-24] MEDS: CEROVITE ADV FORMULA TAB PO SCH (13:11)
[2021-04-24] MEDS: METOPROLOL TARTRATE 25 MG TAB PO SCH (13:12)
[2021-04-24] MEDS: LEVOTHYROXINE SODIUM 75 MCG TABLET PO SCH (13:12)
[2021-04-24] MEDS: HEPARIN SOD 5,000 UNIT/0.5 ML VIAL SQ SCH (13:21)
--- NOTE | 2021-04-24 14:16 | Discharge Summary ---
Date of Service April 24, 2021 Admission HPI Per Admitting Provider This is an 80 y/o wheelchair-bound female with a hx of ESRD on HD (M/W/F), insulin-requiring DM, HTN, GERD, non-obstructive CAD, PAFib (no AC), hx breast CA s/p partial mastectomy, diastolic dysfunction, chronic HFrED, pulmonary HTN, dyslipidemia, and hypothyroidism who presents from SNF where she had a syncopal episode as they were preparing to start dialysis this morning. History from the pt is limited as she is currently on BiPAP, but the chart was extensively reviewed including notes from EMS and additional history from the ED physician. This morning, she apparently passed out as they were preparing to start HD - EMS was called and initial HR was in the 30s per report. She was also hypoxic and required a NRB to maintain sats. They were planning to attempt pacing so the pt was given Versed x 1 dose for sedation, but then pacing was deferred as they were unable to capture and her rate improved to the 70s. Initially, in the ED, she seemed to be stabilizing but then her respiratory status worsened and she was placed on BiPAP. BPs dropped into the 80s systolic and imaging was consistent with marked fluid overload. Nephrology was consulted and recommended HD once stabilize BP with pressors. Admission Exam Per Admitting Provider Has been on BiPAP and is stable on hemodialysis Hemodynamically stable with blood pressure of 115/64 on pressor resents Chest-decreased breath sounds with bibasilar crackles Heart -S1-S2 Abdomen-benign Extremities1+ edema bilaterally Principal Diagnosis Acute respiratory failure with hypoxia, hypercarbia RLL pneumonia: Volume overload: Hypotension: Pleural effusion on right: Systolic and diastolic CHF w/reduced LV function, NYHA class 4: Hypothyroidism: Diabetes mellitus type 2, insulin dependent: Discharge Exam General- No acute distress Head- atraumatic Eyes- PERRL, EOMI, ENT- +decrease hearing function Neck- supple, no JVD Lungs- clear to auscultation Heart- regular rhythm Abdomen- normal bowel sounds, soft, nontender Extremities- no calf tenderness Neuro- alert, oriented, PERRL, EOMI; no facial palsy; no dysarthria Skin- warm & dry Discharge Data Allergies Allergy/AdvReac Type Severity Reaction Status Date / Time fish derived Allergy Severe Anaphylaxis Verified 04/08/21 08:42 alcohol Allergy Intermediate bumps on Verified 04/08/21 08:42 skin with alcohol wipes Aminoglycosides Allergy Intermediate Rash Verified 04/08/21 08:42 polymyxin B Allergy Intermediate Rash Verified 04/08/21 08:42 neomycin Allergy Mild Rash Verified 04/08/21 08:42 iodine Allergy Unknown Unknown Verified 04/08/21 08:42 promethazine Allergy Unknown Unknown Verified 04/08/21 08:42 aminophylline Allergy Unknown Verified 04/08/21 08:42 nystatin Allergy Unknown Verified 04/08/21 08:42 adhesive AdvReac Mild bumps on Verified 04/08/21 08:42 skin with "tape" Consultations 04/08/21 10:20 Consult Acoustical Tile Drill Press Operator Stat ED Decision to Admit Stat 04/08/21 12:02 Consult Acoustical Tile Drill Press Operator Routine Consult Nephrology Routine 04/15/21 07:46 Consult Pulmonology Routine 04/15/21 15:49 Consult Palliative Care Routine 04/19/21 07:56 Consult Neurology Routine Ordered Studies 04/08/21 08:40 CT head/brain wo con Stat 04/13/21 05:07 CT abd pelvis wo con Urgent 04/18/21 09:41 CT head/brain wo con Routine XR chest 1V portable HISTORY: 80 years-old Female Dysrhythmia COMPARISON: Chest radiograph 09/23/2020 TECHNIQUE: Portable AP view of the chest FINDINGS: Cardiac silhouette is enlarged. No pneumothorax. Pulmonary vascular congestion with interstitial coarsening. Trace left with chronic moderate right pleural effusion. Right greater the and left bibasilar consolidation. Degenerative changes of the shoulders and spine. ORIF hardware of the left proximal humerus with healed chronic fracture deformity. IMPRESSION: 1. Cardiomegaly with pulmonary vascular congestion. 2. Unchanged moderate right pleural effusion with right greater than left bibasilar consolidation. ACT 112: Negative or not required by law. The above report was generated using voice recognition software. It may contain grammatical, syntax or spelling errors. Electronically signed by: Kaushal Henry M.D. 04/08/2021 9:17 AM Dictated:04/08/21913 Transcribed: 04/08/21913 CT SCAN OF THE BRAIN WITHOUT IV CONTRAST CLINICAL HISTORY: Change in mental status. Bradycardia. COMPARISON STUDY: CT of the brain dated 09/23/2020. TECHNIQUE: Unenhanced axial CT scan of the brain is performed from the vertex to the skull base. A dose lowering technique was utilized adhering to the principles of ALARA. The examination is degraded by motion artifact. CT DOSE: 1302.24 mGy.cm FINDINGS: Brain parenchyma: There are age-related involutional changes noting moderate subcortical and periventricular microangiopathic change. There is no hemorrhage, mass effect, or evidence of acute territorial ischemia by CT criteria. A chronic lacunar infarct is noted in the left thalamus. Daniel-white matter differentiation is preserved. No extra-axial fluid collection is seen. Ventricles, sulci, cisterns: Prominent secondary to involutional change. Intracranial vasculature: There is atherosclerotic calcification of the cavernous carotid and vertebral arteries. Calvarium: Unremarkable. Sinuses and mastoids: The visualized paranasal sinuses are clear. The mastoid air cells are well pneumatized. Orbits: The bony orbits are grossly intact. There are bilateral ocular lens implants. IMPRESSION: There is no hemorrhage, mass effect, or evidence of acute territorial ischemia by CT criteria noting a motion compromise examination. ACT 112: Negative or not required by law. Electronically signed by: Lenin Cohen M.D. 04/08/2021 10:05 AM Dictated:04/08/21 1002 Transcribed: 04/08/21 1002 SINGLE VIEW CHEST CLINICAL HISTORY: PICC placement. FINDINGS: An AP, portable, upright chest radiograph is compared to study performed earlier the same day 04/08/2021 and correlated with chest CT dated 08/15/2020. The examination is degraded by portable technique and patient ro tation. A right PICC line has been placed. The tip projects over the cavoatrial junction. The heart is enlarged. There is pulmonary vascular congestion. There is a right pleural effusion with consolidation of the right lower lung. Moderate consolidation is seen at the left lung base. No pneumothorax is identified. The skeletal structures are osteopenic. There is chronic posttraumatic deformity and postoperative change seen in the left proximal humerus. IMPRESSION: 1. A right-sided PICC line is been placed as above. 2. Cardiomegaly with evidence of congestive failure. 3. Moderate right pleural effusion with associated consolidation of the right lower lung. Correlate clinically for evidence of superimposed pneumonia. 4. Mild consolidation is also seen at the left lung base. ACT 112: Negative or not required by law. Electronically signed by: Lenin Cohen M.D. 04/08/2021 12:12 PM Dictated:04/08/21 1209 Transcribed: 04/08/[address] abd pelvis wo con CLINICAL HISTORY: Upper and mid abdominal pain COMPARISON STUDY: 08/15/2020 CT DOSE: 1134.32 mGy.cm TECHNIQUE: Standard CT of the Abdomen and Pelvis was performed without IV contrast. The patient did not receive oral contrast. A dose lowering technique was utilized adhering to the principles of ALARA. FINDINGS: Lung base: There is again evidence for moderate, probably loculated pleural effusion with atelectasis/collapse involving the right lower lobe. Findings appears essentially unchanged. The left lung base is clear. Abdominal cavity: There is no evidence for abdominal mass, adenopathy or ascites. There is again evidence for mild anasarca. Liver: The liver is homogeneous in attenuation on these limited noncontrast images.. Spleen: The spleen is homogeneous in attenuation on these limited noncontrast images. Pancreas: The pancreas is homogeneous in attenuation on these limited noncontrast images. Gall Bladder: The gallbladder is again distended with cholelithiasis. There is no CT evidence for acute cholecystitis. Adrenal glands: The adrenal glands are normal in size and attenuation on these limited noncontrast images. Kidneys: There is again mild decreased size of the left kidney when compared to the right. Mild chronic perinephric stranding is again seen. There is again evidence for renal vascular calcification with no obstructing calculi or hydronephrosis. There is no gross renal mass on these limited noncontrast images. Bowel: There is gastric mucosal thickening which is most likely related to nondistention. The bowel loops are otherwise normally placed within the abdomen and pelvis. There is no evidence for mass lesion. There are no inflammatory changes present. There is no evidence for free air. Is no evidence for an inflamed appendix. Bladder: There is no evidence for focal bladder wall thickening, calculus or diverticulum. : There is no evidence for pelvic mass or adenopathy. An enlarged calcified fibroid uterus again seen. Vasculature: There is no evidence for focal aneurysmal dilatation of the abdominal aorta. Mild atelectatic calcification is present. There is dilatation of the IVC again seen. Osseous structures: There is no acute osseous pathology. Extensive degenerative changes are again seen within the lumbar spine. IMPRESSION: 1. Compared to previous examination, there is again moderate right pleural effusion with right lower lobe atelectasis/collapse, essentially unchanged. 2. There is again evidence for cholelithiasis with no CT evidence for acute cholecystitis. 3. Otherwise, no acute intra-abdominal or pelvic abnormality on these limited noncontrast images. 4. Additional nonacute findings are again delineated above. ACT 112: Negative or not required by law. Electronically signed by: Preston Kay M.D. 04/13/2021 9:08 AM Dictated:04/13/21855 Transcribed: 04/13/21855 XR chest 1V portable CLINICAL HISTORY: Cough. COMPARISON STUDY: Chest radiograph no April 08, 2021. FINDINGS: Right PICC is in place. There is no pneumothorax. Moderate right pleural effusion is noted. Associated right lung airspace opacity is noted. Right lung aeration is slightly improved. Cardiomediastinal silhouette is stable. There is no evidence for pulmonary edema. IMPRESSION: Moderate right pleural effusion with associated airspace opacity. Mild interval improvement in right lung aeration since prior exam. ACT 112: Negative or not required by law. Electronically signed by: Cody Tomlinson M.D. 04/13/2021 8:10 AM Dictated:04/13/21807 Transcribed: 04/13/21807 XR chest 1V portable CLINICAL HISTORY: sob. COMPARISON STUDY: 04/13/2021 TECHNIQUE: 1 view of the chest FINDINGS: Single frontal view of the chest demonstrates the heart size to again be enlarged. Compared to previous examination, the patient appears to be in a s lightly more supine position with increase in right pleural effusion and right lower lobe lung opacity. The left hemithorax remains clear. There is no left pleural effusion. There is no evidence for vascular congestion. There is no acute osseous pathology. IMPRESSION: Interval increase in moderately large right pleural effusion which is most likely related to slightly more supine positioning. Right lower lobe airspace opacities again seen and unchanged. ACT 112: Negative or not required by law. Electronically signed by: Preston Kay M.D. 04/15/2021 7:25 AM Dictated:04/15/21722 Transcribed: 04/15/21722 XR chest 1V portable CLINICAL HISTORY: ff up r pleural effusion TECHNIQUE: Single frontal radiograph of the chest was obtained. Comparison: Comparison is made to chest one view 04/14/2021 FINDINGS: No lines and tubes are seen. The cardiomediastinal silhouette is obscured. Diffuse airspace opacities are less prominent than on prior exam. Interval apparent decrease in size of large right and possible small left layering pleural effusion. IMPRESSION: Interval slight improvement in right greater than left pleural effusion and airspace opacities which may represent atelectasis, pneumonia, and/or aspiration. ACT 112: Negative or not required by law. Electronically signed by: Ryan Ramírez M.D. 04/17/2021 1:32 PM Dictated:04/17/211330 Transcribed: 04/17/211330 CT head/brain wo con CLINICAL HISTORY: altered mental status, evaluate for CVA COMPARISON STUDY: 04/08/2021 CT DOSE: 1404.83 mGycm TECHNIQUE: Standard CT of the Brain was performed without IV contrast. A dose lowering technique was utilized adhering to the principles of ALARA. FINDINGS: Extraaxial space: There is no evidence for subdural hematoma. There are no extra-axial fluid collections. Ventricles and cisterns: The ventricles are mildly dilated bilaterally. There is no evidence for midline shift or mass effect. Parenchyma: There is no subarachnoid or intraparenchymal hemorrhage. Old lacunar infarct is again seen within the head of the thalamus on the right. There is no evidence for an acute infarct or cerebral edema. There is mild cerebral cortical atrophy and decreased attenuation in the periventricular white matter representing remote small vessel disease. There are no gross mass lesions. Osseous structures: There is no evidence for an acute fracture. The visualized paranasal sinuses are clear. The mastoid air cells are clear bilaterally. Soft tissues: There is no evidence for focal soft tissue swelling. IMPRESSION: No acute intracerebral pathology. Mild cerebral cortical atrophy and remote small vessel disease are again seen. Old lacunar infarct involving the head of the thalamus on the right is also again seen. ACT 112: Negative or not required by law. Electronically signed by: Preston Kay M.D. 04/18/2021 1:52 PM Dictated:04/18/211348 Transcribed: 04/18/211348 XR chest 1V portable CLINICAL HISTORY: ff up pleural effusion TECHNIQUE: Single frontal radiograph of the chest was obtained. Comparison: Comparison is made to chest one view 04/17/2021 FINDINGS: No lines and tubes are seen. Cardiomegaly is noted. Bilateral lower lung predominant airspace opacities are seen. Stable moderate right pleural effusion. Likely small left pleural effusion. IMPRESSION: Moderate right and small left pleural effusion are stable to minimally decreased from prior exam. Underlying airspace opacities are similar in appearance to prior exam. ACT 112: Negative or not required by law. Electronically signed by: Ryan Ramírez M.D. 04/21/2021 2:06 PM Dictated:04/21/21 1403 Transcribed: 04/21/21 140 Hospital Course (1) Respiratory failure, acute: (1) Acute respiratory failure with hypoxia, hypercarbia Secondary to fluid overload in setting of end-stage renal disease on dialysis. Possible community-acquired, aspiration pneumonia Chest x-ray showing increased pleural effusion in the right side Patient at one point required BiPAP for respiratory distress Has been getting dialysis Tuesday/Tuesday/Tuesday. Repeat chest x-ray showing increasing pleural effusion the right side Lawn Mower Dr. Marcus consulted he does not recommend any procedures including thoracentesis or pleural catheter placement at this time due to possible entrapped lung, history of hemothorax Palliative care service discussed with patient's son Anthony He cannot visit yet because he is in isolation, being tested for Covid after her vacation Once he can visit, patient would like to see his mother 1st before making any decision Complete course of antibiotic with ceftriaxone, Doxy, and Zosyn Patient weaned off BiPAP, Currently on 3 L of oxygen via nasal cannula Clinically improved Continue HD for fluid management Altered mental status likely secondary to metabolic encephalopathy Likely secondary to hypercarbia, hypoxia, underlying pneumonia and delirium Per patient's son Anthony, patient usually develops delirium while in the hospital, resolves upon returning to home Neurologist consulted Stable (2) RLL pneumonia: Completed a course of antibiotic with ceftriaxone and doxycycline and IV Zosyn given x5 days --Afebrile --Antibiotics discontinued Monitor closely (3) Volume overload: Torsemide TuThSaSu schedule which is the opposite day from her dialysis. (4) Hypotension: BP on the lower side Monitor (5) Pleural effusion on right: Chronic issue, s/p thoracentesis earlier in the year revealing transudate. (6) Systolic and diastolic CHF w/reduced LV function, NYHA class 4: NICM with known EF 25%. Chronically on torsemide as outpatient. Also lisinopril 2.5mg, held in hypotension. Does have persistent pleural effusion. Continue with the [employer] torsemide 80 mg on Tuesday/Tuesday//Tuesday. (7) Hypothyroidism: Cont synthroid per home regimen. (8) Diabetes mellitus type 2, insulin dependent: Euglycemic on current inpatient regimen. Nausea/vomiting/abdominal pain -resolved CT abdomen/pelvis was obtained however it was negative for any acute findings. Her symptoms resolved. Diet advance as tolerated (9) DVT prophylaxis: Heparin DNR/DNI Disposition Waiting for placement to rehab Total Time Total Time Spent Total Time Spent (In Minutes): 35 minutes Discharge Plan Discharge Items Patient Disposition: Transfer [facility] Reason For Visit: RESPIRATORY FAILURE, HYPOTENSION, FLUID OVERLOAD Discharge Diagnosis: Acute respiratory failure with hypoxia, hypercarbia RLL pneumonia: Volume overload: Hypotension: Pleural effusion on right: Systolic and diastolic CHF w/reduced LV function, NYHA class 4: Hypothyroidism: Diabetes mellitus type 2, insulin dependent: Activity: Resume your previous activity Non-emergency contact: Primary Care Provider Call non-emergency contact if: you have any medication questions Follow-up/Referrals: [facility] [Primary Care Provider] - Diet: Dialysis Renal Addtl Attending Provider Instructions: Follow up with your primary care provider once discharge from [facility] Follow up with nephrology Continue hemodialysis on Tuesday, Tuesday and fall precaution Continue physical and occupational therapy Pending Studies at Discharge: Yes Stand-Alone Forms: My [facility] Skilled Items Patient informed of condition?: Yes DNR: Yes Discharge Level of Care: Skilled Communicable Disease: No Discharge Prognosis: Stable Lines: None Urinary Catheter: No Medications and DC Order Prescriptions: New thiamine HCl (vitamin B1) [Vitamin B-1] 100 mg Tablet 100 mg PO QAM Qty: 30 RF: 0 Continued atorvastatin [Lipitor] 10 mg tablet 10 mg PO HS RF: 0 Humulin 70/30 U-100 Insulin 100 unit/mL (70-30) Suspension 10 unit SUBCUT BID RF: 0 levothyroxine 75 mcg tablet 75 mcg PO DAILY RF: 0 calcium carbonate 500 mg calcium (1,250 mg) Tablet 1,000 mg PO Q8 PRN (Reason: heatrburn) RF: 0 loratadine 5 mg Tablet,Chewable 5 mg PO DAILY RF: 0 melatonin 5 mg Tablet 10 mg PO HS PRN (Reason: Sleep) RF: 0 acetaminophen [Tylenol] 325 mg Tablet 650 mg PO Q6 PRN (Reason: Fever Or Pain) RF: 0 torsemide 20 mg Tablet 80 mg PO .TUTHSASU RF: 0 pantoprazole 40 mg tablet,delayed release (DR/EC) 40 mg PO DAILY RF: 0 montelukast 10 mg Tablet 10 mg PO DAILY RF: 0 multivitamin with minerals Tablet 1 tab PO DAILY RF: 0 menthol-zinc oxide [Calmoseptine] 0.44-20.6 % Ointment 1 applic TOPICAL QS RF: 0 metoprolol tartrate 37.5 mg Tablet 37.5 mg PO DAILY RF: 0 bisacodyl [Dulcolax (bisacodyl)] 10 mg Suppository 10 mg [place] DAILY PRN (Reason: Constipation) RF: 0 Cough Drops 5 mg Lozenge 1 mg PO Q2H PRN (Reason: Cough) RF: 0 Discontinued gabapentin 100 mg capsule 100 mg PO AMHS RF: 0 lisinopril 2.5 mg Tablet 2.5 mg PO HS RF: 0 No Action ipratropium-albuterol 0.5 mg-3 mg(2.5 mg base)/3 mL solution for nebulization 3 ml INHALATION QID RF: 0 guaifenesin [Diabetic Tussin EX] 100 mg/5 mL Liquid 200 mg PO Q4H PRN (Reason: Cough) RF: 0 Discharge Orders: Discharge Order (Routine); Ordered 04/24/21 Ordered By: Stacy Suarez Admission Data Admit Date/Time: 04/08/21 10:31 Attending Provider: Stacy Suarez Admit Provider: Italia Bradley Primary Care Provider: [facility] Other Providers: Jere Obrien ; Italia Bradley ; Isaias Metz ; Chiqui Mcpherson ; Blair Marcus ; Tiera Rico ; Lakshmi Mac ; Luis Zheng Other Interventions: Discharge Summary Assessment (RN) Last Done: 04/24/21 16:04
[2021-04-24] MEDS: MONTELUKAST SODIUM 10 MG TABLET PO SCH (15:56)
== END 2021-04-24 17:12 | DRG 189 ==
LOC: ED 08:02 → SUATTDRO 10:31 → 1E 10:31 → 2N 04-10 18:45

== ENCOUNTER 2021-05-08 07:46 | Inpatient (IN) ==
[2021-05-08] MEDS ORDERED: CALCIUM GLUCONATE 1000 MG/60 ML NSS IV ONE (07:57)
[2021-05-08] MEDS ORDERED: SODIUM BICARB 8.4% INJ 50 MEQ/50 ML SYR IV ONE (07:59)
[2021-05-08] MEDS ORDERED: CEFEPIME 2,000 MG/20 ML VIAL IV STA (08:07)
--- NOTE | 2021-05-08 08:14 | Emergency Department Note ---
Impression & Plan Altered mental status, Hypotension, Pleural effusion on right, Elevated lactic acid level ED Provider Note NAME: KAL SNOWDEN AGE: 80 SEX: F : 1940 ARRIVES VIA: Ambulance INFORMANT: [ems, nursing] ED PROVIDER(S): [Lenin Garcia MD] CHIEF COMPLAINT: Bradycardia HISTORY OF PRESENT ILLNESS: The patient is an 80-year-old female who is brought by ambulance for altered mental status and bradycardia. She was sent to the dialysis center this morning and was not herself. She looked unwell and was sent to our hospital. The patient can give no history. She is not responding to voice. She appears a bit altered. She at times moans. She has an increased respiratory rate. She seems uncomfortable. Of note, the patient is a DNR, she is not to receive CPR or intubation. In route, the patient was given a dose of IV atropine, the heart rate increased slightly but for just a brief timeframe and there was no change in her mentation or presentation. REVIEW OF SYSTEMS: Unobtainable given her current mentation. PMHx/PSHx: See Below SOCIAL HISTORY: See Below. PHYSICAL EXAM: GENERAL: Patient is significant distress. HEENT: No acute trauma, normocephalic atraumatic, mucous membranes moist, no nasal congestion, no scleral icterus. Left pupil is large and irregular. Right pupil appears normal and reacts to light. NECK: No stridor, no adenopathy, no meningismus, trachea is midline. LUNGS: The left lung seems clear. There are diminished breath sounds on the right. She has an increased respiratory rate and appears short of breath. HEART: Cannot be heard because of her moans and rapid respiratory rate. ABDOMEN: Soft, nontender, bowel sounds positive, no hernias, no peritonitis. EXTREMITIES: No cyanosis, mild bilateral pedal edema, full range of motion of all the joints without pain or difficulty, no signs for acute trauma. NEUROLOGIC: Moaning, moving all extremities, does not respond to voice or commands. Does localize pain. Constantly pulling off her oxygen mask. SKIN: No rash, no jaundice, no diaphoresis. DIFFERENTIAL DIAGNOSIS: Infection, sepsis, dehydration, metabolic abnormality, hypo/hyperglycemia, COVID-19, electrolyte disturbance, anemia, hypoxia, cardiac sources, intracerebral event, toxicologic issues, stroke, TIA, as well as other pathologies. EMERGENCY DEPARTMENT COURSE/PROCEDURES: ECG: Indication was bradycardia. The ECG shows sinus bradycardia with a rate of 42. There is a potential old anterior infarct. There is a nonspecific intraventricular conduction block. There is no ST elevation. Inverted T waves noted laterally. No PVCs. The QTc is 469. Compared to an ECG from 08 April 2021, I see no significant change. Continuous Cardiac Monitoring: An order was placed for continuous cardiac monitoring. The monitor shows a rate of 41 with sinus bradycardia. Critical Care Note: I have personally spent 53 minutes of critical care time in the direct management of this patient. This includes bedside care, interpretation of diagnostic studies, and testing, discussion with consultants, patient, and family members, and other required patient management activities. This 53 minutes is in excess of all separately billable procedures. MEDICAL DECISION MAKING: There is no leukocytosis. Patient is mildly anemic but this is baseline. There is a normal platelet count. Sodium slightly low but not in need of emergent correction. Creatinine was high at 4.46, this is consistent with her dialysis need. Potassium was normal. There were a few subtle liver enzyme elevations. Lactic acid level returned elevated at over 3. TSH was slightly high however, the T4 was normal. Covid testing returned negative. Chest film showed a large right effusion which looked similar to previous films. No left-sided pneumonia. Brain CT showed no acute bleed or mass-effect. CT of the chest showed the right effusion with some atelectasis. ECG showed a sinus bradycardia, no obvious ischemic insult. Cardiac enzyme testing x1 was not consistent with acute cardiac injury. The patient presented hypotensive, agitated, altered. She was aggressively managed. She was given a 500 cc saline bolus. She was given a total of 2000 mg of IV calcium gluconate. She was given 50 mEq of IV sodium bicarbonate. The calcium and bicarb were given emergently upon her presentation for presumed hyperkalemia although, in retrospect, the potassium did not return high. She received IV fentanyl to help with pain, eventually a dose of IV morphine for pain control. She was placed on BiPAP. I did speak with our case management team. A palliative care consult was anne-marie maier. The patient for now will be admitted to our facility. She is not to be intubated, CPR is not to be done. The family is deciding on whether they want to move to hospice care. I did speak with the on-call hospitalist. I did speak with the staff covering for palliative care. Past Med/Surg History Medical History Acute on chronic systolic CHF (congestive heart failure) Anemia Breast cancer s/p radiation CAD (coronary artery disease) mild, non-obstructive per 06/2018 cardiac cath Cardiorenal syndrome Chronic back pain Diabetes mellitus type 2, insulin dependent ESRD (end stage renal disease) on dialysis GERD (gastroesophageal reflux disease) controlled Hemothorax after procedure History of DVT (deep vein thrombosis) LUE Hyperlipidemia Hypothyroidism LBBB (left bundle branch block) chronic dating back to at least [address] [facility] EKG's Morbid obesity Nausea and vomiting Non-ischemic cardiomyopathy Osteoarthritis Peripheral neuropathy Pleural effusion on right Systolic and diastolic CHF w/reduced LV function, NYHA class 4 Volume overload Surgical History AVF (arteriovenous fistula) LEFT ARM History of appendectomy History of cardiac cath 06/2018: Mild, non-obstructive CAD/no culprit lesions identified to explain symptoms or abnormal stress test History of cataract surgery Hx of lumpectomy Right breast S/P aneurysm repair 05/[address] Deutsch Family History Father Diabetes Other Allergies Heart disease Social History Smoking Status: Unknown if ever smoked Tobacco Type: Cigarettes Second Hand Exposure: No; Hx Alcohol Use: No Hx Substance Use: No Preferred Language: Rw[place] Communication Ability: Unable Visual Impairment: No Limitations Hearing Ability: Hard of Hearing Investment Associate Required: No Beliefs That Will Affect Care: None marital status: Current Living Situation: Correction Feels Safe at Home: Yes Assistive Devices: Walker Allergies Allergies Allergy/AdvReac Type Severity Reaction Status Date / Time fish derived Allergy Severe Anaphylaxis Verified 05/08/21 09:31 alcohol Allergy Intermediate bumps on Verified 05/08/21 09:31 skin with alcohol wipes Aminoglycosides Allergy Intermediate Rash Verified 05/08/21 09:31 polymyxin B Allergy Intermediate Rash Verified 05/08/21 09:31 neomycin Allergy Mild Rash Verified 05/08/21 09:31 aminophylline Allergy Unknown Unknown Verified 05/08/21 13:24 iodine Allergy Unknown Unknown Verified 05/08/21 09:31 nystatin Allergy Unknown Unknown Verified 05/08/21 13:24 promethazine Allergy Unknown Unknown Verified 05/08/21 09:31 adhesive AdvReac Mild bumps on Verified 05/08/21 09:31 skin with "tape" Home Meds Home Medications Medication Instructions Recorded Confirmed acetaminophen 325 mg tablet 650 mg PO Q6 PRN 09/23/20 05/08/21 (Tylenol) atorvastatin 10 mg tablet (Lipitor) 10 mg PO HS 09/23/20 05/08/21 calcium carbonate 500 mg calcium 1,000 mg PO Q8 PRN 09/23/20 05/08/21 (1,250 mg) tablet insulin human U-100 NPH-regulr 10 unit SUBCUT BID 09/23/20 05/08/21 70-30 mix 100 unit/mL subcutaneous susp (Humulin 70/30 U-100 Insulin) levothyroxine 75 mcg tablet 75 mcg PO DAILYBB 09/23/20 05/08/21 loratadine 5 mg chewable tablet 5 mg PO DAILY 09/23/20 05/08/21 melatonin 5 mg tablet 10 mg PO HS PRN 09/23/20 05/08/21 menthol 0.44 %-zinc oxide 20.6 % 1 applic TOPICAL QS 09/23/20 05/08/21 topical ointment (Calmoseptine) montelukast 10 mg tablet 10 mg PO DAILY 09/23/20 05/08/21 multivitamin with minerals 1 tab PO DAILY 09/23/20 05/08/21 pantoprazole 40 mg tablet,delayed 40 mg PO DAILY 09/23/20 05/08/21 release torsemide 20 mg tablet 80 mg PO .SUTUTHSA 09/23/20 05/08/21 bisacodyl 10 mg rectal suppository 10 mg NC DAILY PRN 04/08/21 05/08/21 (Dulcolax (bisacodyl)) insulin aspart U-100 100 unit/mL 0 sliding scale dose SUBCUT 05/08/21 05/08/21 subcutaneous solution (Novolog .SLIDING SCALE U-100 Insulin aspart) metoprolol succinate 25 mg 37.5 mg PO DAILY 05/08/21 05/08/21 tablet,extended release 24 hr morphine concentrate 100 mg/5 mL 5 - 10 mg PO Q2H PRN 05/08/21 05/08/21 (20 mg/mL) oral solution Previous Rx's Medication Instructions Recorded thiamine HCl (vitamin B1) 100 mg 100 mg PO QAM #30 tab 04/24/21 tablet (Vitamin B-1) Results & Data (ED) Vital Signs Vital Signs - 24 hr 05/08/21 07:50 05/08/21 08:03 05/08/21 08:07 Pulse Rate 44 L 65 Pulse Rate [Apical] 59 L Pulse Rhythm [Apical] Pulse Strength [Apical] Respiratory Rate 34 H 27 H Respiratory Effort / Characteristics Non-Labored Spontaneous Respiratory Depth Normal Respiratory Pattern Blood Pressure 88/47 L Blood Pressure [Right Arm] 104/57 L Blood Pressure Mean 60 Blood Pressure Mean [Right Arm] 72 Blood Pressure Position Lying Blood Pressure Position [Right Arm] Lying Pulse Oximetry 80 L 100 100 Oxygen Delivery Method Room Air BiPAP BiPAP Fraction of Inspired Oxygen Sepsis Recent Fever Within 48 Hours No Sepsis New/Unexplained Change in Mental Status Yes Sepsis Action Taken by Nursing Physician Notified 05/08/21 08:08 05/08/21 10:00 05/08/21 12:00 Pulse Rate 51 L Pulse Rate [Apical] 65 67 Pulse Rhythm [Apical] Regular Pulse Strength [Apical] Normal Respiratory Rate 37 H 12 22 Respiratory Effort / Characteristics Spontaneous Labored Short of Breath Non-Labored Spontaneous Respiratory Depth Normal Normal Respiratory Pattern Tachypnea Blood Pressure Blood Pressure [Right Arm] 112/54 L 145/106 H Blood Pressure Mean Blood Pressure Mean [Right Arm] 73 119 Blood Pressure Position Blood Pressure Position [Right Arm] Lying Pulse Oximetry 100 100 100 Oxygen Delivery Method BiPAP BiPAP Fraction of Inspired Oxygen 100 Sepsis Recent Fever Within 48 Hours Sepsis New/Unexplained Change in Mental Status Sepsis Action Taken by Correction Medications Current Medication List: was personally reviewed by me Laboratory Data Attestation: I reviewed the patient's lab results. Result diagrams: 05/08/21 08:00 05/08/21 08:00 Lab Results 05/08/21 05/08/21 05/08/21 Range/Units 08:00 08:00 08:02 WBC 6.20 (4.8-10.8) K/uL RBC 3.19 L (4.2-5.4) M/uL Hgb 11.1 L (12.0-16.0) g/dL POC Hgb 11.9 L (12.0-16.0) g/dl Hct 35.4 L (37-47) % POC Hct 35 L (37-47) % MCV 111.0 H (80-100) fL MCH 34.8 H (25-34) pg MCHC 31.4 L (32-36) g/dL RDW Std Deviation 65.9 H (36.4-46.3) fL RDW Coeff of Archana 16.8 H (11.5-14.5) % Plt Count 170 (130-400) K/uL MPV 10.5 H (7.4-10.4) fL Immature Gran % (Auto) 0.2 % Neut % (Auto) 66.2 % Lymph % (Auto) 18.1 % [place]ult[place] % (Auto) 11.6 % Eos % (Auto) 2.9 % Baso % (Auto) 1.0 % Neut # (Auto) 4.11 (1.4-6.5) K/uL Lymph # (Auto) 1.12 L (1.2-3.4) K/uL [place] # (Auto) 0.72 H (0.11-0.59) K/uL Eos # (Auto) 0.18 (0-0.5) K/uL Baso # (Auto) 0.06 (0-0.2) K/uL Immature Gran # (Auto) 0.01 (0.00-0.02) K/uL Macrocytosis Present POC Sodium 135 (135-144) mmol/L Sodium 135 L (136-145) mmol/L POC Potassium 3.6 (3.3-5.0) mmol/L Potassium 3.6 (3.5-5.1) mmol/L POC Chloride 94 L (101-112) mmol/L Chloride 98 (98-107) mmol/L Carbon Dioxide 25 (21-32) mmol/L POC Total CO2 28 (24-31) mmol/L Anion Gap 12.0 H (3-11) POC Anion Gap 17.0 (16-25) mmol/L POC BUN 35 H (7-18) mg/dl BUN 31 H (7-18) mg/dl Creatinine 4.46 H (0.6-1.2) mg/dl POC Creatinine 4.4 H (0.6-1.3) mg/dl Est Cr Clr Drug Dosing Not Reportable Est GFR ( Amer) 10.0 ml/min Est GFR (Non-Af Amer) 8.6 ml/min BUN/Creatinine Ratio 7.0 L (10-20) Glucose 95 (70-99) mg/dl POC Glucose (other) 95 (70-99) mg/dl Lactate (0.4-2.0) mmol/L Calcium 8.7 (8.5-10.1) mg/dl POC Ioniz Calcium Jesica 1.06 L (1.12-1.32) mmol/l Magnesium 1.9 (1.8-2.4) mg/dl Total Bilirubin 1.1 H (0.2-1) mg/dl AST 23 (15-37) U/L ALT 21 (12-78) U/L Alkaline Phosphatase 285 H (45-117) U/L Troponin I < 0.015 (0-0.045) ng/ml Total Protein 6.9 (6.4-8.2) gm/dl Albumin 2.9 L (3.4-5.0) gm/dl Globulin 4.0 (2.5-4.0) gm/dl Albumin/Globulin Ratio 0.7 L (0.9-2) TSH 8.040 H (0.300-4.500) uIu/ml Free T4 1.31 (0.8-1.6) ng/dl 05/08/21 05/08/21 Range/Units 08:40 12:02 WBC (4.8-10.8) K/uL RBC (4.2-5.4) M/uL Hgb (12.0-16.0) g/dL POC Hgb (12.0-16.0) g/dl Hct (37-47) % POC Hct (37-47) % MCV (80-100) fL MCH (25-34) pg MCHC (32-36) g/dL RDW Std Deviation (36.4-46.3) fL RDW Coeff of Archana (11.5-14.5) % Plt Count (130-400) K/uL MPV (7.4-10.4) fL Immature Gran % (Auto) % Neut % (Auto) % Lymph % (Auto) % [place] % (Auto) % Eos % (Auto) % Baso % (Auto) % Neut # (Auto) (1.4-6.5) K/uL Lymph # (Auto) (1.2-3.4) K/uL [place] # (Auto) (0.11-0.59) K/uL Eos # (Auto) (0-0.5) K/uL Baso # (Auto) (0-0.2) K/uL Immature Gran # (Auto) (0.00-0.02) K/uL Macrocytosis POC Sodium (135-144) mmol/L Sodium (136-145) mmol/L POC Potassium (3.3-5.0) mmol/L Potassium (3.5-5.1) mmol/L POC Chloride (101-112) mmol/L Chloride (98-107) mmol/L Carbon Dioxide (21-32) mmol/L POC Total CO2 (24-31) mmol/L Anion Gap (3-11) POC Anion Gap (16-25) mmol/L POC BUN (7-18) mg/dl BUN (7-18) mg/dl Creatinine (0.6-1.2) mg/dl POC Creatinine (0.6-1.3) mg/dl Est Cr Clr Drug Dosing Est GFR ( Amer) ml/min Est GFR (Non-Af Amer) ml/min BUN/Creatinine Ratio (10-20) Glucose (70-99) mg/dl POC Glucose (other) (70-99) mg/dl Lactate 3.7 H* 1.4 (0.4-2.0) mmol/L Calcium (8.5-10.1) mg/dl POC Ioniz Calcium Jesica (1.12-1.32) mmol/l Magnesium (1.8-2.4) mg/dl Total Bilirubin (0.2-1) mg/dl AST (15-37) U/L ALT (12-78) U/L Alkaline Phosphatase (45-117) U/L Troponin I (0-0.045) ng/ml Total Protein (6.4-8.2) gm/dl Albumin (3.4-5.0) gm/dl Globulin (2.5-4.0) gm/dl Albumin/Globulin Ratio (0.9-2) TSH (0.300-4.500) uIu/ml Free T4 (0.8-1.6) ng/dl Administered Medications Discontinued Medications Calcium Gluconate (Calcium Gluconate 1000 Mg/60 Ml Nss) Confirm Administered Dose 1,000 mg IV .STK-MED ONE Stop: 05/08/21 07:58 Last Admin: 05/08/21 08:09 Dose: 1,000 mg Documented by: [id number] Fentanyl Citrate (Fentanyl Citrate 100 Mcg/2 Ml Vial) 50 mcg IV NOW STA Stop: 05/08/21 08:17 Last Admin: 05/08/21 08:29 Dose: 50 mcg Documented by: [id number] Fentanyl Citrate (Fentanyl Citrate 100 Mcg/2 Ml Vial) 50 mcg IV NOW STA Stop: 05/08/21 09:11 Last Admin: 05/08/21 09:13 Dose: 50 mcg Documented by: [id number] Sodium Chloride (Nss) 500 mls @ 999 mls/hr IV .Q31M YULIET Stop: 05/08/21 08:45 Last Infusion: 05/08/21 10:20 Dose: 0 mls/hr Documented by: [id number] Infusion: 05/08/21 08:24 Dose: 500 mls/hr Documented by: [id number] Infusion: 05/08/21 08:23 Dose: 0 mls/hr Documented by: [id number] Admin: 05/08/21 08:10 Dose: 999 mls/hr Documented by: [id number] Cefepime HCl (Maxipime) 2,000 mg in 20 mls @ 5 mls/min IV NOW STA; Protocol Stop: 05/08/21 08:10 Last Admin: 05/08/21 09:54 Dose: 5 mls/min Documented by: [id number] Calcium Gluconate () 1,000 mg in 60 mls @ 240 mls/hr IV NOW STA Stop: 05/08/21 08:37 Last Infusion: 05/08/21 09:00 Dose: 0 mls/hr Documented by: [id number] Admin: 05/08/21 08:29 Dose: 240 mls/hr Documented by: [id number] Morphine Sulfate (Morphine Sulfate 4 Mg/Ml 1 Ml Carp\\Vial) 4 mg IV NOW STA Stop: 05/08/21 09:38 Last Admin: 05/08/21 09:54 Dose: 4 mg Documented by: [id number] Sodium Bicarbonate (Sodium Bicarb 8.4% Inj 50 Meq/50 Ml Syr) Confirm Administered Dose 50 meq IV .Moogi ONE Stop: 05/08/21 08:00 Last Admin: 05/08/21 08:09 Dose: 50 meq Documented by: [id number] Imaging Data Radiologist's Impression: Chest X-Ray 05/08/21 08:01 XR chest 1V portable CLINICAL HISTORY: sob. History of right pleural effusion and right lower lobe atelectasis/collapse COMPARISON STUDY: 04/29/2021 TECHNIQUE: 1 view of the chest FINDINGS: Single frontal view of the chest demonstrates the heart to again be enlarged. There is again increase alveolar opacity involving the lower half of the right lower lobe again characteristic of a moderately large right pleural effusion and right lower lobe atelectasis/collapse. Underlying infiltrate can't still not be excluded. Left hemithorax is clear. There is no evidence for left pleural effusion. There is no evidence for vascular congestion. There is no acute osseous pathology. IMPRESSION: Compared to the previous study, there is again evidence for moderately large right pleural effusion with right lower lobe atelectasis/ collapse. Underlying infiltrate cannot be excluded and if indicated clinically, follow-up CT of the chest is again recommended for further evaluation. ACT 112: Negative or not required by law. Electronically signed by: Preston Kay M.D. 05/08/2021 8:[address] 05/08/21 08:01 CT OF THE HEAD WITHOUT CONTRAST CLINICAL HISTORY: Altered mental status. COMPARISON STUDY: Head CT April 18, 2021. CT DOSE: 1995.05 mGy.cm TECHNIQUE: Helical axial images of the head were obtained without IV contrast. Automated exposure control was utilized for the study. A dose lowering technique was utilized adhering to the principles of ALARA. FINDINGS: This study is mildly compromised by motion artifact. No acute intracranial hemorrhage, midline shift or mass effect is present. Ventricular system is stable. Basal cisterns are patent. There are no extra-axial collections. White matter hypodensity suggests small vessel disease. There are no findings to suggest acute dural sinus thrombosis or acute territorial infarct. The appearance of the brain is unchanged. There are no significant calvarial abnormalities. Visualized portions of the sinuses and mastoid air cells are clear. IMPRESSION: 1. No acute intracranial findings. No change in appearance of the brain. 2. Exam mildly compromised by motion artifact. ACT 112: Negative or not required by law. Electronically signed by: Cody Tomlinson M.D. 05/08/2021 9:[address] 05/08/21 09:00 CT chest diagnostic wo con CLINICAL HISTORY: sob . Chest pain. Patient on dialysis COMPARISON STUDY: 08/15/2020 and portable chest from 05/08/2021 TECHNIQUE: Standard CT of the Chest was performed without IV contrast. A dose lowering technique was utilized adhering to the principles of ALARA. FINDINGS: There is again evidence for anasarca. Airway: The airway is clear. No endobronchial lesion is identified. Lungs and pleural: Compared to the previous examination, there has been interval increase in large loculated right pleural effusion. There is again evidence for right lower lobe and right middle lobe atelectasis/collapse. No definite under lying pneumonic infiltrate is seen. The left hemithorax is clear. There is no left pleural effusion. Mediastinum: There is no evidence for pathologic adenopathy on these limited noncontrast images. The heart is again enlarged. Coronary artery calcifications present. The thoracic aorta is within normal limits. There is no evidence for pericardial effusion. Upper abdomen: The adrenal glands are normal bilaterally. Osseous structures: There is no acute osseous pathology. IMPRESSION: 1. Interval increase in large loculated right pleural effusion with compressive atelectasis/collapse again seen involving the right middle lobe and right lower lobe. No evidence for underlying pneumonic infiltrate. 2. Left hemithorax is clear. 3. No other acute chest disease. ACT 112: Negative or not required by law. Electronically signed by: Preston Kay M.D. 05/08/2021 9:49 AM Discharge Plan Visit Data Chief Complaint: Bradycardia Stated Complaint: BRADYCARDIA, HYPOTENSION ED Provider: Lenin Garcia Discharge Problem: Altered mental status, Hypotension, Pleural effusion on right, Elevated lactic acid level Patient Disposition: Admitted As Inpatient Condition: Serious
[2021-05-08] MEDS ORDERED: SODIUM CHLORIDE 0.9% 500 ML IV SCH (08:15)
[2021-05-08] MEDS ORDERED: fentaNYL citrate 100 MCG/2 ML VIAL IV STA ×2 (08:16→09:10)
[2021-05-08 08:23] LABS: Basophils # (auto) 0.06 K/uL (0-0.2); Eosinophils # (auto) 0.18 K/uL (0-0.5); Eosinophils % (auto) 2.9 %; Hematocrit (blood only) 35.4 % (37-47); Hemoglobin 11.1 g/dL (12.0-16.0); Immature Granulocytes # (auto) 0.01 K/uL (0.00-0.02); Immature Granulocytes % (auto) 0.2 %; Lymphocytes # (auto) 1.12 K/uL (1.2-3.4); Lymphocytes % (auto) 18.1 %; Mean Corpuscular Hemoglobin 34.8 pg (25-34); Mean Corpuscular Hgb Conc 31.4 g/dL (32-36); Mean Platelet Volume 10.5 fL (7.4-10.4); Monocytes # (auto) 0.72 K/uL (0.11-0.59); Monocytes % (auto) 11.6 %; Neutrophils # (auto) 4.11 K/uL (1.4-6.5); Neutrophils % (auto) 66.2 %; Platelet Count 170 K/uL (130-400); RDW Coefficient of Variation 16.8 % (11.5-14.5); RDW Standard Deviation 65.9 fL (36.4-46.3); Red Blood Count 3.19 M/uL (4.2-5.4)
[2021-05-08] MEDS ORDERED: CALCIUM GLUCONATE 1,000 MG/60 ML BAG IV STA (08:23)
--- NOTE | 2021-05-08 08:32 | XRay Report ---
XR chest 1V portable CLINICAL HISTORY: sob. History of right pleural effusion and right lower lobe atelectasis/collapse COMPARISON STUDY: 04/29/2021 TECHNIQUE: 1 view of the chest FINDINGS: Single frontal view of the chest demonstrates the heart to again be enlarged. There is again increase alveolar opacity involving the lower half of the right lower lobe again characteristic of a moderate ly large right pleural effusion and right lower lobe atelectasis/collapse. Underlying infiltrate can' t still not be excluded. Left hemithorax is clear. There is no evidence for left pleural effusion. Th ere is no evidence for vascular congestion. There is no acute osseous pathology. IMPRESSION: Compared to the previous study, there is again evidence for moderately large right pleura l effusion with right lower lobe atelectasis/collapse. Underlying infiltrate cannot be excluded and i f indicated clinically, follow-up CT of the chest is again recommended for further evaluation. ACT 112: Negative or not required by law. Electronically signed by: Preston Kay M.D. 05/08/2021 8:31 AM
[2021-05-08 08:41] LABS: Macrocytosis Present
[2021-05-08 09:00] LABS: Alanine Aminotransferase 21 U/L (12-78); Albumin Level 2.9 gm/dl (3.4-5.0); Blood Urea Nitrogen 31 mg/dl (7-18); Calcium 8.7 mg/dl (8.5-10.1); Carbon Dioxide 25 mmol/L (21-32); Chloride 98 mmol/L (98-107); Est GFR (Non-African American) 8.6 ml/min; Glucose 95 mg/dl (70-99); Magnesium 1.9 mg/dl (1.8-2.4); Potassium 3.6 mmol/L (3.5-5.1); Sodium 135 mmol/L (136-145)
[2021-05-08 09:11] LABS: Albumin Globulin Ratio 0.7 (0.9-2); Alkaline Phosphatase 285 U/L (45-117); Aspartate Aminotransferase 23 U/L (15-37); Bilirubin,Total 1.1 mg/dl (0.2-1); Total Protein 6.9 gm/dl (6.4-8.2); Troponin I < 0.015 ng/ml (0-0.045)
[2021-05-08 09:27] LABS: T4 Free Thyroxine 1.31 ng/dl (0.8-1.6)
[2021-05-08] MEDS ORDERED: MoRPHine SULFATE 4 MG/ML 1 ML CARP\\VIAL IV STA (09:37)
--- NOTE | 2021-05-08 09:41 | CT Scan Report ---
CT OF THE HEAD WITHOUT CONTRAST CLINICAL HISTORY: Altered mental status. COMPARISON STUDY: Head CT April 18, 2021. CT DOSE: 1995.05 mGy.cm TECHNIQUE: Helical axial images of the head were obtained without IV contrast. Automated exposure con trol was utilized for the study. A dose lowering technique was utilized adhering to the principles o f ALARA. FINDINGS: This study is mildly compromised by motion artifact. No acute intracranial hemorrhage, midl ine shift or mass effect is present. Ventricular system is stable. Basal cisterns are patent. There a re no extra-axial collections. White matter hypodensity suggests small vessel disease. There are no f indings to suggest acute dural sinus thrombosis or acute territorial infarct. The appearance of the b rain is unchanged. There are no significant calvarial abnormalities. Visualized portions of the sinus es and mastoid air cells are clear. IMPRESSION: 1. No acute intracranial findings. No change in appearance of the brain. 2. Exam mildly compromised by motion artifact. ACT 112: Negative or not required by law. Electronically signed by: Cody Tomlinson M.D. 05/08/2021 9:40 AM
--- NOTE | 2021-05-08 09:51 | CT Scan Report ---
CT chest diagnostic wo con CLINICAL HISTORY: sob . Chest pain. Patient on dialysis COMPARISON STUDY: 08/15/2020 and portable chest from 05/08/2021 TECHNIQUE: Standard CT of the Chest was performed without IV contrast. A dose lowering technique was utilized adhering to the principles of ALARA. FINDINGS: There is again evidence for anasarca. Airway: The airway is clear. No endobronchial lesion is identified. Lungs and pleural: Compared to the previous examination, there has been interval increase in large lo culated right pleural effusion. There is again evidence for right lower lobe and right middle lobe at electasis/collapse. No definite underlying pneumonic infiltrate is seen. The left hemithorax is clear. There is no left pleural effusion. Mediastinum: There is no evidence for pathologic adenopathy on these limited noncontrast images. The heart is again enlarged. Coronary artery calcifications present. The thoracic aorta is within normal limits. There is no evidence for pericardial effusion. Upper abdomen: The adrenal glands are normal bilaterally. Osseous structures: There is no acute osseous pathology. IMPRESSION: 1. Interval increase in large loculated right pleural effusion with compressive atelectasis/collapse again seen involving the right middle lobe and right lower lobe. No evidence for underlying pneumonic infiltrate. 2. Left hemithorax is clear. 3. No other acute chest disease. ACT 112: Negative or not required by law. Electronically signed by: Preston Kay M.D. 05/08/2021 9:49 AM
--- NOTE | 2021-05-08 10:39 | Electrocardiogram Report ---
Test Reason : Blood Pressure : / mmHG Vent. Rate : 042 BPM Atrial Rate : 042 BPM P-R Int : 150 ms QRS Dur : 124 ms QT Int : 562 ms P-R-T Axes : 050 136 161 degrees QTc Int : 469 ms Marked sinus bradycardia Right axis deviation Non-specific intra-ventricular conduction delay Nonspecific ST and T wave abnormality Abnormal ECG When compared with ECG of 08-APR-2021 08:56, No significant change was found Confirmed by Hernandez Fine ([id number]) on 05/08/2021 10:38:37 AM Referred By: REFERRED SELF Confirmed By:Yaakov Fine
--- NOTE | 2021-05-08 12:25 | History & Physical Report ---
Date of Service May 08, 2021 Assessment & Plan (1) Altered mental status: Plan: - Admit to med surg with tele - Maintained on bipap for acute respiratory failure with hypoxia - Palliative care consulted for goals of care and discussion with family regarding transition to hospice. Son has indicated that he wants mother maintained on bipap for now. - No wbc, afebrile - COVID negative - was started on morphine concentrate as an outpatient-May continue for resp iratory distress (2) ESRD (end stage renal disease): Plan: -Consult nephrology, normal HD schedule is MWF, missed session this morning due to increased lethargy and shortness of breath as well as bradycardia -BUN 31, creatinine 4.46, potassium 3.6 upon arrival (3) Acute on chronic systolic CHF (congestive heart failure): Plan: - Hx of such, LVEF of 25 to 29%, history of LBBB, hypokinetic encinas, dilated IVC and elevated atrial pressure, pulmonary hypertension is highly suspected, severe TR (4) Acute respiratory failure with hypoxia: Plan: - Was previously seen by pulmonology during her last hospital stay earlier this month for right-sided pleural effusion, however at that time pulmonology did not recommend any procedures including thoracentesis or pleural catheter placement due to possible entrapped lung with a history of hemothorax. This was drained earlier in the year and was found to be transudative. - CXR reviewed, during last hospital stay she did complete course of ceftriaxone doxy and IV Zosyn for right lower lobe pneumonia. She does not appear to be volume overloaded on admission today. (5) Hyperlipidemia: Plan: - Cont atorvastatin (6) Bradycardia: Plan: -History of such, appears to not be a new finding, EKGs have been reviewed, negative troponins - Was administered dose of atropine x1 in route by EMS on the way to the hospital from dialysis, HR in the mid 60s at bedside now (7) Diabetes mellitus type 2, insulin dependent: Plan: -ISS with Accu-Cheks ACHS - Hold humulin 70/30 BID for now while NPO. (8) Peripheral neuropathy: Plan: -History of such secondary to diabetes - gabapentin was discontinued during the last hospital stay (9) GERD (gastroesophageal reflux disease): Plan: - hx of usch, continue omeprazole (10) Hypothyroidism: Plan: - Cont levothyroxine, TSH is elevated at 8.04 - will ask PCP to follow this result if needed in the outpatient setting versus going back to [facility] on hospice. DVT ppx: - teds, scds, heparin subq CODE: DNR/DNI Dispo: From [facility], poor prognosis, likely to remain in the hospital and transition to hospice. Possible that the patient will not make it out of the hospital. History of Present Illness Chief Complaint: lethargy, shortness of breath, bradycardia Primary Care Provider: [facility] This is a 80-year-old female with PMHx of ESRD on HD, nonobstructive CAD, systolic and diastolic CHF, afib not anticoagulated, pulmonary HTN, chronic respiratory failure with hypoxia, HLD, peripheral neuropathy, hx of breast cancer s/p partial mastectomy, hypothryoidism, GERD, osteoarthritis, anemia who presents via EMS to the ER due to lethargy while at hemodialysis this morning. She was noted by staff at their facility that she was not quite herself, bradycardic however this is not a new finding, and was sent over via EMS. In route here she was given dose of atropine IV for bradycardia, however did not seem to significantly improve heart rate initially, currently her pulse is 67. Upon arrival she was treated as if she was hyperkalemic due to the bradycardia so was given doses of calcium gluconate, sodium bicarb and given NSS 500 mL. Lab results returned afterwards and noted potassium was 3.6. Because of her respiratory distress she was given a dose of fentanyl 50 mcg x 2 and morphine 4 mg IV and placed on BiPAP at 60% FiO2. Palliative was consulted for the patient's care as she has had several discussions with them as an outpatient regarding end-of-life and goals of care, and have been trending towards comfort care measures. Palliative medicine had contacted her son and at this time he would like the patient to be maintained on BiPAP. He has not seen his mother in the hospital today, and unable to come in. Pt has not had her routinely scheduled dialysis session this morning. She is unable to participate in any part of the exam due to lethargy and being on BiPAP. She does awaken to verbal and painful stimuli. She does not follow commands at bedside. Allergies Allergy/AdvReac Type Severity Reaction Status Date / Time fish derived Allergy Severe Anaphylaxis Verified 05/08/21 09:31 alcohol Allergy Intermediate bumps on Verified 05/08/21 09:31 skin with alcohol wipes Aminoglycosides Allergy Intermediate Rash Verified 05/08/21 09:31 polymyxin B Allergy Intermediate Rash Verified 05/08/21 09:31 neomycin Allergy Mild Rash Verified 05/08/21 09:31 aminophylline Allergy Unknown Unknown Verified 05/08/21 13:24 iodine Allergy Unknown Unknown Verified 05/08/21 09:31 nystatin Allergy Unknown Unknown Verified 05/08/21 13:24 promethazine Allergy Unknown Unknown Verified 05/08/21 09:31 adhesive AdvReac Mild bumps on Verified 05/08/21 09:31 skin with "tape" Home Medications Medication Instructions Recorded Confirmed Type acetaminophen 325 mg tablet 650 mg PO Q6 PRN 09/23/20 05/08/21 History (Tylenol) atorvastatin 10 mg tablet (Lipitor) 10 mg PO HS 09/23/20 05/08/21 History calcium carbonate 500 mg calcium 1,000 mg PO Q8 PRN 09/23/20 05/08/21 History (1,250 mg) tablet insulin human U-100 NPH-regulr 10 unit SUBCUT BID 09/23/20 05/08/21 History 70-30 mix 100 unit/mL subcutaneous susp (Humulin 70/30 U-100 Insulin) levothyroxine 75 mcg tablet 75 mcg PO DAILYBB 09/23/20 05/08/21 History loratadine 5 mg chewable tablet 5 mg PO DAILY 09/23/20 05/08/21 History melatonin 5 mg tablet 10 mg PO HS PRN 09/23/20 05/08/21 History menthol 0.44 %-zinc oxide 20.6 % 1 applic TOPICAL QS 09/23/20 05/08/21 History topical ointment (Calmoseptine) montelukast 10 mg tablet 10 mg PO DAILY 09/23/20 05/08/21 History multivitamin with minerals 1 tab PO DAILY 09/23/20 05/08/21 History pantoprazole 40 mg tablet,delayed 40 mg PO DAILY 09/23/20 05/08/21 History release torsemide 20 mg tablet 80 mg PO .SUTUTHSA 09/23/20 05/08/21 History bisacodyl 10 mg rectal suppository 10 mg IA DAILY PRN 04/08/21 05/08/21 History (Dulcolax (bisacodyl)) thiamine HCl (vitamin B1) 100 mg 100 mg PO QAM #30 tab 04/24/21 05/08/21 Rx tablet (Vitamin B-1) insulin aspart U-100 100 unit/mL 0 sliding scale dose SUBCUT 05/08/21 05/08/21 History subcutaneous solution (Novolog .SLIDING SCALE U-100 Insulin aspart) metoprolol succinate 25 mg 37.5 mg PO DAILY 05/08/21 05/08/21 History tablet,extended release 24 hr morphine concentrate 100 mg/5 mL 5 - 10 mg PO Q2H PRN 05/08/21 05/08/21 History (20 mg/mL) oral solution Past Med/Surg History Medical History (Updated 05/08/21 @ 17:27 by ARY Desai) Acute on chronic systolic CHF (congestive heart failure) Anemia Breast cancer s/p radiation CAD (coronary artery disease) mild, non-obstructive per 06/2018 cardiac cath Cardiorenal syndrome Chronic back pain Diabetes mellitus type 2, insulin dependent ESRD (end stage renal disease) on dialysis GERD (gastroesophageal reflux disease) controlled Hemothorax after procedure History of DVT (deep vein thrombosis) LUE Hyperlipidemia Hypothyroidism LBBB (left bundle branch block) chronic dating back to at least 2007 per prior [facility] EKG's Morbid obesity Nausea and vomiting Non-ischemic cardiomyopathy Osteoarthritis Palliative care encounter Peripheral neuropathy Pleural effusion on right Systolic and diastolic CHF w/reduced LV function, NYHA class 4 Volume overload Surgical History AVF (arteriovenous fistula) LEFT ARM History of appendectomy History of cardiac cath 06/2018: Mild, non-obstructive CAD/no culprit lesions identified to explain symptoms or abnormal stress test History of cataract surgery Hx of lumpectomy Right breast S/P aneurysm repair 05/2019 AV fistula QUENTIN Deutsch Family History Father Diabetes Other Allergies Heart disease Social History Smoking Status: Unknown if ever smoked Tobacco Type: Cigarettes Second Hand Exposure: No; Hx Alcohol Use: No Hx Substance Use: No Preferred Language: Greenlandic Communication Ability: Unable Visual Impairment: No Limitations Hearing Ability: Hard of Hearing Upkeep Worker Required: No Beliefs That Will Affect Care: None marital status: Current Living Situation: [place] Feels Safe at Home: Yes Assistive Devices: Walker Review of Systems Review of Systems: Unobtainable due to cognitive status Physical Exam Physical Exam: General: Awakens to verbal and painful stimuli, unable to participate in conversation or ROS, appears chronically ill, obese Head: Normocephalic, atraumatic ENT: PERRL, EOMI, pharynx is not examined due to being on BiPAP Chest: Diminished breath sounds throughout, on BiPAP with 60% FiO2 Cardiac: Regular rate and rhythm, heart rate 100 at bedside, + faint systolic murmur, no JVD, normal peripheral pulses, good capillary refill Abdominal: NABS x 4 quadrants, soft, obese, nondistended, nontender to palpation, no rebound or guarding Extremities: Normal inspection, no peripheral edema or erythema, calfs nontender to palpation Psych: Normal mood and affect Neuro: Awakens to verbal and painful stimuli, does not participate in conversation, does not follow command, no gross motor deficits, speech not assessed Results & Data Results & Data ([facility]) Vital Signs (Past 12 Hours) Vital Signs Pulse Pulse Resp BP BP Pulse Ox 05/08/21 12:00 67 22 145/106 H 100 05/08/21 10:00 65 12 112/54 L 100 05/08/21 08:08 51 L 37 H 100 05/08/21 08:07 59 L 27 H 104/57 L 100 05/08/21 08:03 65 100 05/08/21 07:50 44 L 34 H 88/47 L 80 L Laboratory Results 05/08/21 08:41 Aerobic Blood Culture - Pending Blood Anaerobic Blood Culture - Pending 05/08/21 09:02 Aerobic Blood Culture - Pending Blood Anaerobic Blood Culture - Pending 05/08/21 05/08/21 05/08/21 Unknown 12:02 08:40 WBC RBC Hgb POC Hgb Hct POC Hct MCV MCH MCHC RDW Std Deviation RDW Coeff of Archana Plt Count MPV Immature Gran % (Auto) Neut % (Auto) Lymph % (Auto) [place] % (Auto) Eos % (Auto) Baso % (Auto) Neut # (Auto) Lymph # (Auto) [place] # (Auto) Eos # (Auto) Baso # (Auto) Immature Gran # (Auto) Macrocytosis POC Sodium Sodium POC Potassium Potassium POC Chloride Chloride Carbon Dioxide POC Total CO2 Anion Gap POC Anion Gap POC BUN BUN Creatinine POC Creatinine Est Cr Clr Drug Dosing Est GFR ( Amer) Est GFR (Non-Af Amer) BUN/Creatinine Ratio Glucose POC Glucose (other) Lactate 1.4 3.7 H* Calcium POC Ioniz Calcium Jesica Magnesium Total Bilirubin AST ALT Alkaline Phosphatase Troponin I Total Protein Albumin Globulin Albumin/Globulin Ratio TSH Free T4 SARS-CoV-2, RNA, NAAT NEGATIVE 05/08/21 05/08/21 05/08/21 08:02 08:00 08:00 WBC 6.20 RBC 3.19 L Hgb 11.1 L POC Hgb 11.9 L Hct 35.4 L POC Hct 35 L MCV 111.0 H MCH 34.8 H MCHC 31.4 L RDW Std Deviation 65.9 H RDW Coeff of Archana 16.8 H Plt Count 170 MPV 10.5 H Immature Gran % (Auto) 0.2 Neut % (Auto) 66.2 Lymph % (Auto) 18.1 [place] % (Auto) 11.6 Eos % (Auto) 2.9 Baso % (Auto) 1.0 Neut # (Auto) 4.11 Lymph # (Auto) 1.12 L [place] # (Auto) 0.72 H Eos # (Auto) 0.18 Baso # (Auto) 0.06 Immature Gran # (Auto) 0.01 Macrocytosis Present POC Sodium 135 Sodium 135 L POC Potassium 3.6 Potassium 3.6 POC Chloride 94 L Chloride 98 Carbon Dioxide 25 POC Total CO2 28 Anion Gap 12.0 H POC Anion Gap 17.0 POC BUN 35 H BUN 31 H Creatinine 4.46 H POC Creatinine 4.4 H Est Cr Clr Drug Dosing Not Reportable Est GFR ( Amer) 10.0 Est GFR (Non-Af Amer) 8.6 BUN/Creatinine Ratio 7.0 L Glucose 95 POC Glucose (other) 95 Lactate Calcium 8.7 POC Ioniz Calcium Jesica 1.06 L Magnesium 1.9 Total Bilirubin 1.1 H AST 23 ALT 21 Alkaline Phosphatase 285 H Troponin I < 0.015 Total Protein 6.9 Albumin 2.9 L Globulin 4.0 Albumin/Globulin Ratio 0.7 L TSH 8.040 H Free T4 1.31 SARS-CoV-2, RNA, NAAT Diagnostic Findings Chest X-Ray 05/08/21 08:01 XR chest 1V portable CLINICAL HISTORY: sob. History of right pleural effusion and right lower lobe atelectasis/collapse COMPARISON STUDY: 04/29/2021 TECHNIQUE: 1 view of the chest FINDINGS: Single frontal view of the chest demonstrates the heart to again be enlarged. There is again increase alveolar opacity involving the lower half of the right lower lobe again characteristic of a moderately large right pleural effusion and right lower lobe atelectasis/collapse. Underlying infiltrate can't still not be excluded. Left hemithorax is clear. There is no evidence for left pleural effusion. There is no evidence for vascular congestion. There is no acute osseous pathology. IMPRESSION: Compared to the previous study, there is again evidence for moderately large right pleural effusion with right lower lobe atelectasis/collapse. Underlying infiltrate cannot be excluded and if indicated clinically, follow-up CT of the chest is again recommended for further evaluation. ACT 112: Negative or not required by law. Electronically signed by: Preston Kay M.D. 05/08/2021 8:[address] 05/08/21 08:01 CT OF THE HEAD WITHOUT CONTRAST CLINICAL HISTORY: Altered mental status. COMPARISON STUDY: Head CT April 18, 2021. CT DOSE: 1995.05 mGy.cm TECHNIQUE: Helical axial images of the head were obtained without IV contrast. Automated exposure control was utilized for the study. A dose lowering technique was utilized adhering to the principles of ALARA. FINDINGS: This study is mildly compromised by motion artifact. No acute intracranial hemorrhage, midline shift or mass effect is present. Ventricular system is stable. Basal cisterns are patent. There are no extra-axial collections. White matter hypodensity suggests small vessel disease. There are no findings to suggest acute dural sinus thrombosis or acute territorial infarct. The appearance of the brain is unchanged. There are no significant calvarial abnormalities. Visualized portions of the sinuses and mastoid air cells are clear. IMPRESSION: 1. No acute intracranial findings. No change in appearance of the brain. 2. Exam mildly compromised by motion artifact. ACT 112: Negative or not required by law. Electronically signed by: Cody Tomlinson M.D. 05/08/2021 9:[address] 05/08/21 09:00 CT chest diagnostic wo con CLINICAL HISTORY: sob . Chest pain. Patient on dialysis COMPARISON STUDY: 08/15/2020 and portable chest from 05/08/2021 TECHNIQUE: Standard CT of the Chest was performed without IV contrast. A dose lowering technique was utilized adhering to the principles of ALARA. FINDINGS: There is again evidence for anasarca. Airway: The airway is clear. No endobronchial lesion is identified. Lungs and pleural: Compared to the previous examination, there has been interval increase in large loculated right pleural effusion. There is again evidence for right lower lobe and right middle lobe atelectasis/collapse. No definite underlying pneumonic infiltrate is seen. The left hemithorax is clear. There is no left pleural effusion. Mediastinum: There is no evidence for pathologic adenopathy on these limited noncontrast images. The heart is again enlarged. Coronary artery calcifications present. The thoracic aorta is within normal limits. There is no evidence for pericardial effusion. Upper abdomen: The adrenal glands are normal bilaterally. Osseous structures: There is no acute osseous pathology. IMPRESSION: 1. Interval increase in large loculated right pleural effusion with compressive atelectasis/collapse again seen involving the right middle lobe and right lower lobe. No evidence for underlying pneumonic infiltrate. 2. Left hemithorax is clear. 3. No other acute chest disease. ACT 112: Negative or not required by law. Electronically signed by: Preston Kay M.D. 05/08/2021 9:49 AM ECG Additional Comments: Vent. Rate : 042 BPM Atrial Rate : 042 BPM P-R Int : 150 ms QRS Dur : 124 ms QT Int : 562 ms P-R-T Axes : 050 136 161 degrees QTc Int : 469 ms Marked sinus bradycardia Right axis deviation Non-specific intra-ventricular conduction delay Nonspecific ST and T wave abnormality Abnormal ECG When compared with ECG of 08-APR-2021 08:56, No significant change was found Code Status & VTE Plan Code Status DNR/DNI - discussed with palliative care and family Supervising Physician Co-Signing Physician Notes Care coordinated with Angel Aquino PA-C. Agree with above note. Patient seen and examined. Please refer to her notes for full details. Vital signs reviewed. Physical exam: General exam: Alert and oriented. Not in acute distress. CVS: S1 and S2 heard, regular rate and rhythm, no murmurs. RS: Clear to auscultation, no wheezing or crackles. ABD: Soft, bowel sounds present, nontender, no distention. SUBWAY CAR REPAIRER: Nonfocal. EXT: No edema, no erythema. Labs: Reviewed. Assessment and plan: 80F with hx of esrd on hd, systolic chf with EF of 25%, Pleuraleffusion who recently in hospital with respiratory failure treated for pneumonia with abx and required bipap. Thoracentesis was not done as pulmonary felt lung entrapped and hx of hemothorax and discharged on 3lt oxygen was brought in because of lethargy and bradycardia during dialysis, Received atropine. Patient currently DNR/DNI. Palliative care talked with the son and son wanted to continue bipap for now and if deteriorates he seems ok for comfort care. Empirically started on abx, Cariology consulted. Currently heart rates ok. Fluid management as per dialysis. Will also consult pulmonary if son continues want to procedures. Patient lethargic.Abg, lactic acid ok ammonia levels 38.Close monitor. Other diagnosis and plan of care as per Angel Aquino PA-C. Rajendra palepu. MD. (1) Hyperlipidemia Hyperlipidemia type: unspecified Qualified Code(s): E78.5 - Hyperlipidemia, unspecified (2) Hypothyroidism Hypothyroidism type: acquired Qualified Code(s): E03.9 - Hypothyroidism, unspecified (3) Altered mental status Altered mental status type: transient alteration of awareness Qualified Code(s): R40.4 - Transient alteration of awareness (4) GERD (gastroesophageal reflux disease) Esophagitis presence: without esophagitis Qualified Code(s): K21.9 - Gastro- esophageal reflux disease without esophagitis
[2021-05-08 12:26] LABS: iSTAT Creatinine 4.4 mg/dl (0.6-1.3); iSTAT Hemoglobin 11.9 g/dl (12.0-16.0); iSTAT Ionized Calcium 1.06 mmol/l (1.12-1.32); iSTAT Potassium 3.6 mmol/L (3.3-5.0)
[2021-05-08] MEDS ORDERED: PIPERACILL/TAZOBAC CONSULT ACTIVE PRN (13:38)
[2021-05-08] MEDS ORDERED: PIPERACILLIN/TAZOBACTAM 3.375 GM in DEXTROSE 5% 100 ML IV SCH (13:45)
[2021-05-08] MEDS ORDERED: MoRPHine SULFATE 4 MG/ML 1 ML CARP\\VIAL IV PRN (13:54)
[2021-05-08] MEDS ORDERED: MoRPHine SULFATE 2 MG/ML CARP IV PRN (13:54)
[2021-05-08] MEDS ORDERED: ONDANSETRON INJ 2 MG/ML 2 ML VIAL IV PRN (13:54)
[2021-05-08] MEDS ORDERED: PIPERACILLIN/TAZOBACTAM 3.375 GM in DEXTROSE 5% 100 ML IV ONE (14:30)
[2021-05-08 14:49] LABS: Base Excess ABG 4.8 mEq/L (-9-1.8); HCO3 ABG 31 mmol/L (19-24); Oxygen Saturation ABG 97.1 % (90-95); PCO2 ABG 56 mmHg (35-46); PO2 ABG 99 mmHg (80-95); pH ABG 7.37 (7.35-7.45)
[2021-05-08 15:24] LABS: Allen Test Pos (Pos)
--- NOTE | 2021-05-08 15:38 | Palliative Care Consultation ---
Date of Consultation May 08, 2021 Assessment & Plan (1) Palliative care encounter: Silva is an 80- year old female who presented to the [facility] while on her way to hemodialysis as she experienced altered mental status and bradycardia. Atropine was administered in route. She has a PMH that includes: ESRD on HD, CAD, mixed CHF, afib, pHTN, chronic resp failure, HLD, peripheral neuropathy, hx of breast cancer s/p partial mastectomy, hypothryoidism, GERD, osteoarthritis, and anemia of chronic disease. She was placed on Bipap on arrival and is minimally responsive/lethargic. Ca+ Gluc and HCO3 were pushed and gentle fluids initiated. Hemodynamically she was not too unstable. Palliative medicine was consulted to discuss goals of care. I met with Silva who was unable to converse with me. She was on 60% on Bipap with SpO2 94%. I called her son, Anthony and discussed her care. I asked about heroic and aggressive measures and he indicated she is to remain a DNR/DNI. Regarding escalation of care; he wondered if she needed a thoracentesis. We reviewed her CXR and I indicated I discussed with Dr. Pabon and at this time a bedside thoracentesis would not change her overall clinical picture. We discussed stopping hemodialysis, he would like her to receive HD if possible to see if that would change her mental status. Nephro consult pending. Should she decline and require max bipap, ok for comfort transition. Should she decline and have increased work of breathing, he is ok with comfort medication administration. Due to poor renal function, would suggest Dilaudid compared to Morphine due to the possibility of opioid toxicity. For now, continue care and see how things progress. Son was not able to visit bedside today. (2) Altered mental status: Altered mental status type: transient alteration of awareness Qualified Code(s): R40.4 - Transient alteration of awareness (3) Chronic kidney failure: Chronic kidney disease stage: stage 5 Qualified Code(s): N18.5 - Chronic kidney disease, stage 5 History of Present Illness Reason for Consultation: goals of care Requesting Physician: Dr. Pabon Attending Physician: Chris Anand MD History of Present Illness Silva is an 80- year old female who presented to the [facility] while on her way to hemodialysis as she experienced altered mental status and bradycardia. Atropine was administered in route. She has a PMH that includes: ESRD on HD, CAD, mixed CHF, afib, pHTN, chronic resp failure, HLD, peripheral neuropathy, hx of breast cancer s/p partial mastectomy, hypothryoidism, GERD, osteoarthritis, and anemia of chronic disease. She was placed on Bipap on arrival and is minimally responsive/lethargic. Ca+ Gluc and HCO3 were pushed and gentle fluids initiated. Hemodynamically she was not too unstable. Palliative medicine was consulted to discuss goals of care. Thanks for consulting Palliative Medicine. Allergies Allergy/AdvReac Type Severity Reaction Status Date / Time fish derived Allergy Severe Anaphylaxis Verified 05/08/21 09:31 alcohol Allergy Intermediate bumps on Verified 05/08/21 09:31 skin with alcohol wipes Aminoglycosides Allergy Intermediate Rash Verified 05/08/21 09:31 polymyxin B Allergy Intermediate Rash Verified 05/08/21 09:31 neomycin Allergy Mild Rash Verified 05/08/21 09:31 aminophylline Allergy Unknown Unknown Verified 05/08/21 13:24 iodine Allergy Unknown Unknown Verified 05/08/21 09:31 nystatin Allergy Unknown Unknown Verified 05/08/21 13:24 promethazine Allergy Unknown Unknown Verified 05/08/21 09:31 adhesive AdvReac Mild bumps on Verified 05/08/21 09:31 skin with "tape" Home Medications Medication Instructions Recorded Confirmed Type acetaminophen 325 mg tablet 650 mg PO Q6 PRN 09/23/20 05/08/21 History (Tylenol) atorvastatin 10 mg tablet (Lipitor) 10 mg PO HS 09/23/20 05/08/21 History calcium carbonate 500 mg calcium 1,000 mg PO Q8 PRN 09/23/20 05/08/21 History (1,250 mg) tablet insulin human U-100 NPH-regulr 10 unit SUBCUT BID 09/23/20 05/08/21 History 70-30 mix 100 unit/mL subcutaneous susp (Humulin 70/30 U-100 Insulin) levothyroxine 75 mcg tablet 75 mcg PO DAILYBB 09/23/20 05/08/21 History loratadine 5 mg chewable tablet 5 mg PO DAILY 09/23/20 05/08/21 History melatonin 5 mg tablet 10 mg PO HS PRN 09/23/20 05/08/21 History menthol 0.44 %-zinc oxide 20.6 % 1 applic TOPICAL QS 09/23/20 05/08/21 History topical ointment (Calmoseptine) montelukast 10 mg tablet 10 mg PO DAILY 09/23/20 05/08/21 History multivitamin with minerals 1 tab PO DAILY 09/23/20 05/08/21 History pantoprazole 40 mg tablet,delayed 40 mg PO DAILY 09/23/20 05/08/21 History release torsemide 20 mg tablet 80 mg PO .SUTUTHSA 09/23/20 05/08/21 History bisacodyl 10 mg rectal suppository 10 mg MI DAILY PRN 04/08/21 05/08/21 History (Dulcolax (bisacodyl)) thiamine HCl (vitamin B1) 100 mg 100 mg PO QAM #30 tab 04/24/21 05/08/21 Rx tablet (Vitamin B-1) insulin aspart U-100 100 unit/mL 0 sliding scale dose SUBCUT 05/08/21 05/08/21 History subcutaneous solution (Novolog .SLIDING SCALE U-100 Insulin aspart) metoprolol succinate 25 mg 37.5 mg PO DAILY 05/08/21 05/08/21 History tablet,extended release 24 hr morphine concentrate 100 mg/5 mL 5 - 10 mg PO Q2H PRN 05/08/21 05/08/21 History (20 mg/mL) oral solution Patient History Medical History (Updated 05/08/21 @ 17:27 by ARY Desai) Acute on chronic systolic CHF (congestive heart failure) Anemia Breast cancer s/p radiation CAD (coronary artery disease) mild, non-obstructive per 06/2018 cardiac cath Cardiorenal syndrome Chronic back pain Diabetes mellitus type 2, insulin dependent ESRD (end stage renal disease) on dialysis GERD (gastroesophageal reflux disease) controlled Hemothorax after procedure History of DVT (deep vein thrombosis) LUE Hyperlipidemia Hypothyroidism LBBB (left bundle branch block) chronic dating back to at least 2007 per prior [facility] EKG's Morbid obesity Nausea and vomiting Non-ischemic cardiomyopathy Osteoarthritis Palliative care encounter Peripheral neuropathy Pleural effusion on right Systolic and diastolic CHF w/reduced LV function, NYHA class 4 Volume overload Surgical History AVF (arteriovenous fistula) LEFT ARM History of appendectomy History of cardiac cath 06/2018: Mild, non-obstructive CAD/no culprit lesions identified to explain symptoms or abnormal stress test History of cataract surgery Hx of lumpectomy Right breast S/P aneurysm repair 05/[address] Deutsch Family History Father Diabetes Other Allergies Heart disease Social History Smoking Status: Unknown if ever smoked Tobacco Type: Cigarettes Second Hand Exposure: No; Hx Alcohol Use: No Hx Substance Use: No Preferred Language: Yi Communication Ability: Unable Visual Impairment: No Limitations Hearing Ability: Hard of Hearing Construction 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: No Beliefs That Will Affect Care: None marital status: Current Living Situation: Custodial Feels Safe at Home: Yes Assistive Devices: Walker Review of Systems Review of Systems: Unobtainable due to reduced consciousness Physical Exam Constitutional: + obese and + frail appearing ENMT: Mouth: + dry oral mucous membranes Respiratory: + labored breathing and + uses accessory muscles Auscultation: + diminished lung sounds Cardiovascular: Rate/Rhythm: regular rate and regular rhythm Heart Sounds: normal S1 and normal S2 Psychiatric: Orientation: alert Results & Data ([facility]) Vital Signs (Past 12 Hours) Vital Signs Pulse Pulse Resp BP BP Pulse Ox 05/08/21 14:30 65 22 101/49 L 98 05/08/21 13:54 100 05/08/21 12:00 67 22 145/106 H 100 05/08/21 10:00 65 12 112/54 L 100 05/08/21 08:08 51 L 37 H 100 05/08/21 08:07 59 L 27 H 104/57 L 100 05/08/21 08:03 65 100 05/08/21 07:50 44 L 34 H 88/47 L 80 L PG Care Time/CCT Total # of Minutes Spent Total Time Spent with Patient: Total time spent is greater than 50% in coordination of care (as documented) at patient's floor/unit and/or counseling patient: 100 minutes Coding Level of Care Code 19494 Initial Inpt Care Lvl 3 Diagnoses Palliative care encounter Z51.5 Altered mental status R40.4 Altered mental status type: transient alteration of awareness Chronic kidney failure N18.5 Chronic kidney disease stage: stage 5 Time Spent (min) 100
[2021-05-08] MEDS: HEPARIN SOD 5,000 UNIT/0.5 ML VIAL SQ SCH (21:08)
[2021-05-08] MEDS: PIPERACILLIN/TAZOBACTAM 3.375 GM in DEXTROSE 5% 100 ML IV SCH (23:47)
[2021-05-08] MEDS: HYDROmorphone INJ 0.5 MG/0.5 ML SYR IV PRN (23:51)
[2021-05-09] MEDS ORDERED: OLANZapine 10 MG/2.1 ML SDV IM PRN (01:39)
[2021-05-09] MEDS ORDERED: ALBUT/IPRATROP 3MG/0.5MG NEB 3 ML VIAL NEB STA (01:59)
[2021-05-09] MEDS ORDERED: methylPREDNISolone 20 MG in SYRINGE 0 ML IV ONE (02:10)
--- NOTE | 2021-05-09 02:28 | Consultation Report ---
NEPHROLOGY CONSULTATION REASON FOR CONSULTATION: Dialysis patient admitted with altered mental status. HISTORY OF PRESENT ILLNESS: The patient is an 80-year-old female with end-stage renal disease, on he modialysis, which she gets at the [facility] in-center. She has multiple advanced med ical problems including worsening dementia, end-stage cardiac disease, as well as various problems. She was noted by staff at the facility that she was having progressive confusion and worsening bradyc ardia. She did not get dialysis today. In the Emergency Department, she was given atropine for hardeep ycardia, which improved the heart rate slightly. Blood work did not show any hyperkalemia, in fact h er potassium was somewhat low at 3.6. The patient is unable to give any history. At this time, she i s on BiPAP and seems very sick. Palliative medicine is already on board. During her previous hospit al stay, which was very recently, there was extensive discussion about transitioning to hospice, but it did not happen during the last visit. ALLERGIES: List reviewed. MEDICATIONS: Home medication list was reviewed in detail. PAST MEDICAL AND SURGICAL HISTORY: Reviewed in detail and includes [id number] heart failure wi th an EF of 25%; type 2 diabetes, insulin-dependent; end-stage renal disease, on dialysis at the [facility]; breast cancer, status post radiation; hyperlipidemia; hypothyroidism; left bun dle branch block; morbid obesity; nonischemic cardiomyopathy with an EF of 25%; AV fistula; history o f appendicectomy; cardiac catheterization; cataract surgery; aneurysm repair, status post 2019. FAMILY HISTORY: Negative for renal disease or dialysis. SOCIAL HISTORY: At this time, she [facility] in a [facility] where [facility] her [facility]. She is divor lulu. She is hard of hearing and has very poor cognition status at this time. REVIEW OF SYSTEMS: Unable to obtain due to cognitive status. The patient is nonverbal at this time, on BiPAP, and looks very sick. PHYSICAL EXAMINATION: GENERAL: Unable to participate in conversation. She is very chronically ill, nonverbal. She is on BiPAP. VITAL SIGNS: Blood pressure is 116/68, pulse rate 60, temperature afebrile, 96% on BiPAP 100% FiO2. HEENT: Mucous membrane is moist. NECK: Supple. Jugular venous distention not present. CHEST: Decreased breath sound throughout on BiPAP at 60% FiO2. CARDIOVASCULAR: Regular rate and rhythm. Systolic murmur heard. ABDOMEN: Soft, nontender, obese. EXTREMITIES: Shows trace edema. NEUROLOGIC: She is nonverbal and unresponsive at this time. LABORATORY TESTS: From this morning showed sodium 135, potassium 3.6, creatinine 4.4. Lactic acid w as 3.7 and the repeat one is 0.7, ammonia 38. Hemoglobin 11.9. IMAGING DATA: CT of the chest showed interval increase in the large loculated right pleural effusion with compressive atelectasis, collapse noted. No pulmonary vascular congestion. ASSESSMENT AND PLAN: An 80-year-old female who is a [facility] resident with significantly poor he alth at baseline with chronic terminal problems, now admitted with worsening mental status and respir atory failure. She gets dialysis at the [facility] for which I have been consulted. End-stage renal disease: Today is her dialysis day, but at this time I think it is important we sort out the palliative issue. She has multiple terminal diagnoses and doing dialysis at this time does not really change the course at all. Her electrolytes are within reasonable range and she is not daisy rt of breath because of pulmonary congestion. Depending on what happens with the palliative medicine consult, will do dialysis likely tomorrow if we are still planning to do. My recommendation is to do comfort care at this point. Job ID: [id number]
[2021-05-09] MEDS: HYDROmorphone INJ 0.5 MG/0.5 ML SYR IV PRN (05:15)
[2021-05-09 07:03] LABS: Hemoglobin 12.3 g/dL (12.0-16.0); Mean Corpuscular Hemoglobin 34.8 pg (25-34); Mean Corpuscular Hgb Conc 31.5 g/dL (32-36); Mean Corpuscular Volume 110.5 fL (80-100); Mean Platelet Volume 10.6 fL (7.4-10.4); Platelet Count 148 K/uL (130-400); RDW Coefficient of Variation 16.6 % (11.5-14.5); RDW Standard Deviation 66.7 fL (36.4-46.3); Red Blood Count 3.53 M/uL (4.2-5.4); White Blood Count 8.15 K/uL (4.8-10.8)
[2021-05-09] MEDS ORDERED: SODIUM CHLORIDE 0.9% 1000ML 1,000 ML IV PRN (08:11)
[2021-05-09] MEDS ORDERED: HEPARIN SOD (PORCINE) 1000 UNIT/ML IV ONE (08:11)
[2021-05-09] MEDS: HEPARIN SOD 5,000 UNIT/0.5 ML VIAL SQ SCH ×2 (08:13→20:06)
[2021-05-09 10:05] LABS: Alanine Aminotransferase 21 (12-78); Albumin Globulin Ratio 0.7 (0.9-2); Alkaline Phosphatase 272 U/L (45-117); Aspartate Aminotransferase 30 U/L (15-37); BUN Creatinine Ratio 8.2 (10-20); Bilirubin,Total 1.9 mg/dl (0.2-1); Blood Urea Nitrogen 41 mg/dl (7-18); Calcium 9.7 mg/dl (8.5-10.1); Carbon Dioxide 34 mmol/L (21-32); Chloride 97 mmol/L (98-107); Est GFR (African American) 8.4 ml/min; Est GFR (Non-African American) 7.3 ml/min; Globulin 4.1 gm/dl (2.5-4.0); Glucose 49 mg/dl (70-99); Magnesium 2.1 mg/dl (1.8-2.4); Potassium 4.1 mmol/L (3.5-5.1); Sodium 135 mmol/L (136-145); Total Protein 7.1 gm/dl (6.4-8.2)
[2021-05-09] MEDS ORDERED: DEXTROSE 50% 50 ML SYRINGE IV ONE (10:26)
[2021-05-09] MEDS ORDERED: DEXTROSE 50% 50 ML SYRINGE IV PRN (10:30)
[2021-05-09] MEDS ORDERED: Nursing to Pharmacy Communication SCH (10:30)
[2021-05-09] MEDS ORDERED: GLUCOSE 10 TABS/TUBE PO PRN (10:30)
[2021-05-09] MEDS ORDERED: GLUCOSE 40% GEL 15 GM TUBE PO PRN (10:30)
[2021-05-09] MEDS ORDERED: GLUCAGON FOR INJ 1 MG VIAL IM PRN (10:30)
--- NOTE | 2021-05-09 11:24 | Nephrology Progress Note ---
Date of Service May 09, 2021 Assessment & Plan (1) End stage renal disease on dialysis: Plan: Patient with ESRD on dialysis Tuesday. [facility] [place] [facility] [place]. She missed her dialysis yesterday. She is hypoxic requiring oxygen by facemask. She has a right dilated loculated pleural effusion. pulmonary not recommending thoracentesis as its chronic Patient and son also not willing to undergo thoracentesis at this point -We will dialyze her today for 4 hours and target UF of 3.5 L. Admission and Anticipated Discharge Date Admission Date: May 08, 2021 Subjective Seen in follow-up for ESRD. Main complaint is shortness of breath. She missed dialysis yesterday. Review of Systems Review of Systems: All other systems were reviewed and negative except as noted in HPI Physical Exam Physical Exam: General exam: Appears comfortable, no acute distress, on oxygen by facemask HEENT: Pupils are equal and reactive to light Neck: No JVD, neck is supple trachea is midline Respiratory system: Clear breath sounds bilaterally. Gastrointestinal: Abdomen is soft, non distended, non tender, bowel sounds are present CVS: Regular rate and rhythm. No murmurs, rubs or gallops Musculoskeletal: No joint or muscle tenderness Extremities: Non tender, no edema, peripheral pulses are present Neuro: Oriented, no tremors, no focal neurological deficits Skin: No rashes Results & Data ([facility]) Vital Signs (Past 12 Hours) Vital Signs Temp Pulse Pulse Resp BP Pulse Ox Pulse Ox 05/09/21 11:10 36.7 C 62 19 115/66 97 05/09/21 08:05 36.7 C 72 19 106/61 100 05/09/21 04:39 82 05/09/21 04:00 36.8 C 91 H 26 H 132/84 93 05/09/21 03:37 37.2 C 79 28 H 121/88 94 05/09/21 02:14 71 24 117/91 96 05/09/21 01:42 79 28 H 140/75 96 05/09/21 01:23 81 22 100 05/09/21 00:14 60 28 H 158/80 H 100 05/08/21 23:31 100 05/08/21 23:23 68 30 H 95 Laboratory Results 05/09/21 06:33 05/09/21 05/09/21 06:33 06:33 WBC 8.15 RBC 3.53 L MCV 110.5 H MCH 34.8 H MCHC 31.5 L RDW Std Deviation 66.7 H RDW Coeff of Archana 16.6 H Plt Count 148 MPV 10.6 H Albumin 3.0 L
--- NOTE | 2021-05-09 11:38 | Communication Note ---
Date of Service: May 09, 2021 Made aware by RN of increased patient agitation while on BiPAP. Patient son agreeable to removing BiPAP.
[2021-05-09] MEDS: PIPERACILLIN/TAZOBACTAM 3.375 GM in DEXTROSE 5% 100 ML IV SCH ×2 (11:47→23:43)
[2021-05-09] MEDS: PATIENT'S HEIGHT AND/OR WEIGHT NEEDED SCH (15:11)
--- NOTE | 2021-05-09 18:07 | Cardiology Consultation ---
Date of Consultation May 09, 2021 Assessment & Plan (1) Bradycardia: (2) Hypotension: (3) Pleural effusion due to CHF (congestive heart failure): (4) End stage renal disease on dialysis: (5) Acute on chronic systolic CHF (congestive heart failure): Patient with acute on chronic systolic heart failure, severe LV systolic dysfunction noted historically dating back to 2019 in setting of left bundle branch block, nonischemic cardiomyopathy, no obstructive CAD cardiac catheterization 2018. Patient with large right loculated pleural effusion noted on chest CT. She also been admitted last month with hypotension, transiently treated in the ICU. Medical therapy for her cardiomyopathy has been limited due to hypotension especially hypotension on dialysis. She does have a history of dementia and cognitive impairment, and per my discussion with another provider who is more familiar with her case historically, she has days when her mental status seems to be great and days when it is not. Reviewed pulmonary notes, she underwent thoracentesis yielding 1400 mL of transudate of fluid back in July 2020, this reaccumulated in the meantime, and repeat thoracentesis was felt to not be indicated at time of assessment by pulmonary/critical care last month. Patient and her family have discussed palliative care previously. But at present, patient states that if the pacemaker device would help her, that she would be agreeable. At present I recommend following her off of the beta- walter, repeat EKG tomorrow for reassessment of her left bundle branch block and repeat echocardiogram. Will likely obtain opinion from EP early next week. Not certain that I would advocate for her having a defibrillator given her age and comorbidities, but perhaps a cardiac resynchronization capable pacemaker would improve her quality of life by providing heart rate support, and may actua lly improve her EF. I am not certain if she would be able to lie supine long enough for the procedure, and will assess this in more detail as her hospital stay develops. History of Present Illness Attending Physician: Stacy Suarez MD History of Present Illness Silva Kirby is an 80-year-old female seen in cardiology consultation per the request of Cipriano Ortiz PA-C of the [facility] hospitalist group for evaluation of an unresponsive episode, with noted bradycardia. The patient's primary blanket washer is Dr. Curry of our practice. The patient has a history of end-stage renal disease and is on hemodialysis via a left upper extremity fistula. [facility], but before the treatment could ever be started she was found to have unresponsive episode. She was reportedly bradycardic on the arrival of EMS, and received atropine, and was treated for hyperkalemia when she arrived in the emergency room. EKG revealed marked sinus bradycardia with left bundle branch block at 42 bpm, QRS duration 120 ms. She was treated for presumed hyperkalemia, but her potassium was normal with the test results came back. At the time my assessment, her son, Anthony, is accompanying her at the bedside. She carries a diagnosis of nonischemic cardiomyopathy with mild nonobstructive coronary heart disease on cardiac catheterization in 2019, severe left ventricular systolic dysfunction noted on most recent echocardiogram July,, LVEF 25 to 29% with septal motion consistent with left bundle branch block, pulmonary artery systolic pressure 62 mmHg, mild mitral vegetation, severe tricuspid regurgitation. Previous echocardiogram study in 2019 included findings of LVEF 25%. Patient's prior to hospital treatment with metoprolol succinate 37.5 mg daily on hold. Heart rates have been in the 60s overnight last night and all day today. Allergies Allergy/AdvReac Type Severity Reaction Status Date / Time fish derived Allergy Severe Anaphylaxis Verified 05/08/21 09:31 alcohol Allergy Intermediate bumps on Verified 05/08/21 09:31 skin with alcohol wipes Aminoglycosides Allergy Intermediate Rash Verified 05/08/21 09:31 polymyxin B Allergy Intermediate Rash Verified 05/08/21 09:31 neomycin Allergy Mild Rash Verified 05/08/21 09:31 aminophylline Allergy Unknown Unknown Verified 05/08/21 13:24 iodine Allergy Unknown Unknown Verified 05/08/21 09:31 nystatin Allergy Unknown Unknown Verified 05/08/21 13:24 promethazine Allergy Unknown Unknown Verified 05/08/21 09:31 adhesive AdvReac Mild bumps on Verified 05/08/21 09:31 skin with "tape" Home Medications Medication Instructions Recorded Confirmed Type acetaminophen 325 mg tablet 650 mg PO Q6 PRN 09/23/20 05/08/21 History (Tylenol) atorvastatin 10 mg tablet (Lipitor) 10 mg PO HS 09/23/20 05/08/21 History calcium carbonate 500 mg calcium 1,000 mg PO Q8 PRN 09/23/20 05/08/21 History (1,250 mg) tablet insulin human U-100 NPH-regulr 10 unit SUBCUT BID 09/23/20 05/08/21 History 70-30 mix 100 unit/mL subcutaneous susp (Humulin 70/30 U-100 Insulin) levothyroxine 75 mcg tablet 75 mcg PO DAILYBB 09/23/20 05/08/21 History loratadine 5 mg chewable tablet 5 mg PO DAILY 09/23/20 05/08/21 History melatonin 5 mg tablet 10 mg PO HS PRN 09/23/20 05/08/21 History menthol 0.44 %-zinc oxide 20.6 % 1 applic TOPICAL QS 09/23/20 05/08/21 History topical ointment (Calmoseptine) montelukast 10 mg tablet 10 mg PO DAILY 09/23/20 05/08/21 History multivitamin with minerals 1 tab PO DAILY 09/23/20 05/08/21 History pantoprazole 40 mg tablet,delayed 40 mg PO DAILY 09/23/20 05/08/21 History release torsemide 20 mg tablet 80 mg PO .SUTUTHSA 09/23/20 05/08/21 History bisacodyl 10 mg rectal suppository 10 mg MS DAILY PRN 04/08/21 05/08/21 History (Dulcolax (bisacodyl)) thiamine HCl (vitamin B1) 100 mg 100 mg PO QAM #30 tab 04/24/21 05/08/21 Rx tablet (Vitamin B-1) insulin aspart U-100 100 unit/mL 0 sliding scale dose SUBCUT 05/08/21 05/08/21 History subcutaneous solution (Novolog .SLIDING SCALE U-100 Insulin aspart) metoprolol succinate 25 mg 37.5 mg PO DAILY 05/08/21 05/08/21 History tablet,extended release 24 hr morphine concentrate 100 mg/5 mL 5 - 10 mg PO Q2H PRN 05/08/21 05/08/21 History (20 mg/mL) oral solution Patient History Medical History Acute on chronic systolic CHF (congestive heart failure) Anemia Breast cancer s/p radiation CAD (coronary artery disease) mild, non-obstructive per 06/2018 cardiac cath Cardiorenal syndrome Chronic back pain Diabetes mellitus type 2, insulin dependent ESRD (end stage renal disease) on dialysis GERD (gastroesophageal reflux disease) controlled Hemothorax after procedure History of DVT (deep vein thrombosis) LURosario Hyperlipidemia Hypothyroidism LBBB (left bundle branch block) chronic dating back to at least 2007 per prior [facility] EKG's Morbid obesity Nausea and vomiting Non-ischemic cardiomyopathy Osteoarthritis Palliative care encounter Peripheral neuropathy Pleural effusion on right Systolic and diastolic CHF w/reduced LV function, NYHA class 4 Volume overload Surgical History AVF (arteriovenous fistula) LEFT ARM History of appendectomy History of cardiac cath 06/2018: Mild, non-obstructive CAD/no culprit lesions identified to explain symptoms or abnormal stress test History of cataract surgery Hx of lumpectomy Right breast S/P aneurysm repair 05/2019 AV fistula QUENTIN Deutsch Family History Father Diabetes Other Allergies Heart disease Social History Smoking Status: Unknown if ever smoked Tobacco Type: Cigarettes Second Hand Exposure: No; Hx Alcohol Use: No Hx Substance Use: No Preferred Language: Wallisian Communication Ability: [facility] Visual Impairment: No Limitations Hearing Ability: Hard of Hearing Bliss Press Operator Required: No Beliefs That Will Affect Care: None marital status: Current Living Situation: Snf Current Living Situation Comment: At [facility] How many Children do You have: 1 Other Information That Helps Us Care for You: No Feels Safe at Home: Yes Safety Concerns: Feels Safe At This Time Assistive Devices: Wheelchair Review of Systems Review of Systems: All systems reviewed & are unremarkable except as noted in HPI & below Physical Exam Physical Exam: Temp Pulse Resp BP Pulse Ox 36.8 C 66 19 112/70 93 05/09/21 15:07 05/09/21 15:07 05/09/21 15:07 05/09/21 15:07 05/09/21 15:07 Constitutional: no acute distress Respiratory: normal respiratory effort, lungs clear to auscultation Cardiovascular: RRR, no murmur, no edema Neurologic: PERRL, EOMI, accommodation nl, no face palsy, no dysarthria Results & Data ([facility]) Vital Signs (Past 12 Hours) Vital Signs Temp Pulse Pulse Resp BP Pulse Ox 05/09/21 15:07 36.8 C 66 19 112/70 93 05/09/21 11:15 70 05/09/21 11:10 36.7 C 62 19 115/66 97 05/09/21 08:05 36.7 C 72 19 106/61 100 (1) Hypotension Hypotension type: unspecified hypotension type Qualified Code(s): I95.9 - Hypotension, unspecified
--- NOTE | 2021-05-09 23:16 | Hospitalist Progress Note ---
Date of Service May 09, 2021 Assessment & Plan (1) Altered mental status: Plan: Metabolic encephalopathy Present on admission with lethargy and mental status while on dialysis Possible related to hypoxia CT head showed no acute intracranial findings. No change in appearance of the brain. No wbc, afebrile Mental status clinically improved (2) ESRD (end stage renal disease): Plan: HD on MWF Nephrology on board plan to dialyze either tonight or tomorrow morning Case discussed with Nephrology that said dialysis will not be helping with the large loculated pleural effusion (3) Acute on chronic systolic CHF (congestive heart failure): Plan: Hx of such, LVEF of 25 to 29%, Hx of LBBB, hypokinetic encinas, dilated IVC and elevated atrial pressure, pulmonary hypertension is highly suspected, severe TR Cardiology on board Continue HD on MWF Plan to resume torsemide when BP stable (4) Acute respiratory failure with hypoxia: Plan: Large Pleural effusion CT chest showed interval increase in large loculated right pleural effusion with compressive atelectasis/collapse again seen involving the right middle lobe and right lower lobe. Case discussed with pulmonology about thoracentesis Pulmonology does not recommend any thoracentesis procedure or pleural catheter placement at this time due to possible entrapped lung Last Thoracentesis back in July patient had developed hemothorax after the thoracentesis, chest tube was placed and was transferred to [facility] review the last few CAT scan showed no significant increase in the right loculated pleural effusion Palliative care on board (5) Hyperlipidemia: Plan: - Cont atorvastatin (6) Bradycardia: Plan: Atropine x1 was given in route by EMS on the way to the hospital from dialysis Continue to hold beta-walter Cardiology consulted- pending (7) Diabetes mellitus type 2, insulin dependent: Plan: ISS with Accu-Cheks ACHS Continue monitor blood sugar Check hemoglobin A1c in a.m. (8) Peripheral neuropathy: Plan: -History of such secondary to diabetes - gabapentin was discontinued during the last hospital stay (9) GERD (gastroesophageal reflux disease): Plan: - hx of usch, continue omeprazole (10) Hypothyroidism: Plan: TSH is elevated at 8.04 On levothyroxine 75 mcg We will repeat TSH in 4 weeks DVT ppx: teds, scds, heparin subq CODE: DNR/DNI Dispo: Consider transition to hospice/comfort care Admission and Anticipated Discharge Date Admission Date: May 08, 2021 Subjective Patient was seen and examined for follow-up of shortness of breath Lying in bed with no acute distress She said her breathing is slightly better compared to when she came Spoke to son Anthony over the phone and provided with updates and answer all his questions Denies any chest pain, palpitation, dizziness, and fever. Review of Systems Review of Systems: All systems reviewed & are unremarkable except as noted in Subjective Physical Exam Physical Exam: General- No acute distress Head- atraumatic Eyes- PERRL, EOMI, ENT- +decreased hearing function Neck- supple, no JVD Lungs- +decrease breath sound in R side Heart- regular rhythm; no murmur Abdomen- normal bowel sounds, soft, nontender Extremities- no calf tenderness Neuro- alert, oriented x 3; PERRL, EOMI; no facial palsy; no dysarthria Skin- warm & dry Results & Data Results & Data ([place]) Vital Signs (Past 12 Hours) Vital Signs Temp Pulse Resp BP BP Pulse Ox Pulse Ox 05/09/21 23:00 98 05/09/21 19:18 37.2 C 91 H 20 114/60 91 05/09/21 15:07 36.8 C 66 19 112/70 93 (1) Hyperlipidemia Hyperlipidemia type: unspecified Qualified Code(s): E78.5 - Hyperlipidemia, unspecified (2) Hypothyroidism Hypothyroidism type: acquired Qualified Code(s): E03.9 - Hypothyroidism, unspecified (3) Altered mental status Altered mental status type: transient alteration of awareness Qualified Code(s): R40.4 - Transient alteration of awareness (4) GERD (gastroesophageal reflux disease) Esophagitis presence: without esophagitis Qualified Code(s): K21.9 - Gastro- esophageal reflux disease without esophagitis
[2021-05-09] MEDS ORDERED: MELATONIN 3 MG TAB PO PRN (23:53)
[2021-05-10 06:14] LABS: Hematocrit (blood only) 33.4 % (37-47); Hemoglobin 10.5 g/dL (12.0-16.0); Mean Corpuscular Hemoglobin 34.3 pg (25-34); Mean Corpuscular Hgb Conc 31.4 g/dL (32-36); Mean Corpuscular Volume 109.2 fL (80-100); Mean Platelet Volume 10.6 fL (7.4-10.4); Platelet Count 151 K/uL (130-400); RDW Coefficient of Variation 16.4 % (11.5-14.5); Red Blood Count 3.06 M/uL (4.2-5.4); White Blood Count 6.86 K/uL (4.8-10.8)
[2021-05-10 06:57] LABS: Albumin Globulin Ratio 0.7 (0.9-2); Albumin Level 2.7 gm/dl (3.4-5.0); BUN Creatinine Ratio 9.4 (10-20); Bilirubin,Total 1.2 mg/dl (0.2-1); Calcium 8.2 mg/dl (8.5-10.1); Creatinine Clr Calc Pharmacy 7.4 ml/min; Est GFR (African American) 7.1 ml/min; Est GFR (Non-African American) 6.1 ml/min; Globulin 3.8 gm/dl (2.5-4.0); Potassium 4.9 mmol/L (3.5-5.1); Total Protein 6.5 gm/dl (6.4-8.2)
[2021-05-10] MEDS: HEPARIN SOD 5,000 UNIT/0.5 ML VIAL SQ SCH ×2 (09:42→20:40)
[2021-05-10] MEDS ORDERED: CARBOHYDRATES FOR HYPOGLYCEMIA PO PRN (10:50)
[2021-05-10] MEDS ORDERED: GLUCOSE 40% GEL 15 GM TUBE PO PRN (10:50)
[2021-05-10] MEDS ORDERED: GLUCAGON FOR INJ 1 MG VIAL SQ PRN (10:50)
[2021-05-10] MEDS ORDERED: DEXTROSE 50% 50 ML SYRINGE IV PRN (10:50)
[2021-05-10] MEDS ORDERED: GLUCOSE 10 TABS/TUBE PO PRN (10:50)
--- NOTE | 2021-05-10 11:31 | Nephrology Progress Note ---
Date of Service May 10, 2021 Assessment & Plan (1) End stage renal disease on dialysis: Plan: Patient with ESRD on dialysis Tuesday. [facility] dial[facility] the [facility] sent to [facility]. She missed her dialysis yesterday. She is hypoxic requiring oxygen by facemask. She has a right dilated loculated pleural effusion. pulmonary not recommending thoracentesis as its chronic Patient and son also not willing to undergo thoracentesis at this point -She is tolerating dialysis well today for 4 hours and target UF of 3.5 L. -From renal standpoint patient can be discharged after dialysis. Admission and Anticipated Discharge Date Admission Date: May 08, 2021 Subjective Seen in follow-up for ESRD. Patient was seen and examined while on dialysis. She remains on oxygen nasal cannula 6 L but breathing is comfortable. Blood pressure is soft Review of Systems Review of Systems: All other systems were reviewed and negative except as noted in HPI Physical Exam Physical Exam: General exam: Appears comfortable, no acute distress, on oxygen by IA HEENT: Pupils are equal and reactive to light Neck: No JVD, neck is supple trachea is midline Respiratory system: Clear breath sounds bilaterally. Gastrointestinal: Abdomen is soft, non distended, non tender, bowel sounds are present CVS: Regular rate and rhythm. No murmurs, rubs or gallops Musculoskeletal: No joint or muscle tenderness Extremities: Non tender, no edema, peripheral pulses are present Neuro: Oriented, no tremors, no focal neurological deficits Skin: No rashes Results & Data ([facility]) Vital Signs (Past 12 Hours) Vital Signs Temp Pulse Resp BP BP Pulse Ox 05/10/21 07:07 36.7 C 89 18 107/59 L 99 05/10/21 03:33 37.1 C 91 H 20 133/87 94 Laboratory Results 05/10/21 05:16 05/10/21 05/10/21 05:16 05:16 WBC 6.86 RBC 3.06 L MCV 109.2 H MCH 34.3 H MCHC 31.4 L RDW Std Deviation 63.0 H RDW Coeff of Archana 16.4 H Plt Count 151 MPV 10.6 H Albumin 2.7 L
[2021-05-10] MEDS: INSULIN GLARGINE SOLOSTAR 100 UNITS/ML 3 ML PEN SC SCH ×2 (12:15→20:39)
[2021-05-10] MEDS: INSULIN ASPART 100 UNITS/ML VIAL SC SCH ×3 (12:16→20:39)
[2021-05-10] MEDS: HEPARIN SOD (PORCINE) 1000 UNIT/ML IV SCH (13:07)
--- NOTE | 2021-05-10 13:08 | Electrocardiogram Report ---
Test Reason : Blood Pressure : / mmHG Vent. Rate : 092 BPM Atrial Rate : 092 BPM P-R Int : 178 ms QRS Dur : 130 ms QT Int : 398 ms P-R-T Axes : 028 121 163 degrees QTc Int : 492 ms Normal sinus rhythm Non-specific intra-ventricular conduction block Poor R wave progression, consider anterior UT vs. lead placement vs. LVH Abnormal ECG When compared with ECG of 08-MAY-2021 07:56, Vent. rate has increased BY 50 BPM Non-specific change in ST segment in Anterior leads T wave inversion no longer evident in Anterior leads Confirmed by Fidel Hood ([id number]) on 05/10/2021 1:08:13 PM Referred By: REFERRED SELF Confirmed By:Fidel Hood
[2021-05-10] MEDS: PIPERACILLIN/TAZOBACTAM 3.375 GM in DEXTROSE 5% 100 ML IV SCH (13:17)
[2021-05-10] MEDS: ACETAMINOPHEN 325 MG TAB PO PRN ×2 (13:33→20:39)
--- NOTE | 2021-05-10 17:09 | Cardiology Progress Note ---
Date of Service May 10, 2021 Assessment & Plan (1) Bradycardia: (2) Hypotension: (3) Pleural effusion due to CHF (congestive heart failure): (4) End stage renal disease on dialysis: (5) Acute on chronic systolic CHF (congestive heart failure): Plan: Patient with acute on chronic systolic heart failure, severe LV systolic dysfunction noted historically dating back to 2019 in setting of left bundle branch block, nonischemic cardiomyopathy, no obstructive CAD cardiac catheterization 2019. Echocardiogram performed today revealed severe left ventricular systolic dysfunction, with abnormal septal motion consistent with left bundle branch block, severe hypokinesis noted otherwise, LVEF 25-30%, moderate right ventricular chamber dilatation and at least mild right ventricular hypokinesis as well. Severe tricuspid regurgitation, moderate pulmonary hypertension. Grade 2 diastolic dysfunction. The patient presented with what was described as unresponsive episode prior to the initiation of dialysis. Sinus bradycardia in the 40s with chronic left bund le branch block noted on presentation. Her metoprolol succinate 37.5 mg has been held, and her heart rate improved to the 60s yesterday and 80s today. Treatment with appropriate evidence-based medications for cardiomyopathy has been limited by relative hypotension and now bradycardia. By my count the patient has at least 4 hospital stays this admission including a long hospital stay a month ago. She underwent thoracentesis of a large right pleural effusion in July of this year yielding 1400 mils of transudative fluid. Pulmonary has reassessed the patient, and it is felt that she is not a candidate for repeat attempted thoracentesis as the current right pleural effusion is loculated with significant volume loss. Palliative care has been involved in her recent hospital stays. Although consideration of implantation of a CONTACT LENS CUTTER capable pacemaker device appears to be indicated given her degree of heart failure, findings on her echocardiogram and EKG, I am not certain that it would change the trajectory of this particular patient. We will have ongoing discussion with patient/family, and her care team including her primary claim attorney. Admission and Anticipated Discharge Date Admission Date: May 08, 2021 Subjective Patient seen in follow-up. She is undergoing hemodialysis in her room at the time my assessment, with no acute complaints, and her blood pressure stable. Telemetry revealed stable sinus rhythm in the 80s, without ongoing bradycardia. Review of Systems Review of Systems: All systems reviewed & are unremarkable except as noted in HPI & below Physical Exam Physical Exam: Temp Pulse Resp BP Pulse Ox 36.4 C L 82 18 105/75 97 05/10/21 15:04 05/10/21 15:27 05/10/21 12:32 05/10/21 15:04 05/10/21 12:32 Constitutional: Chronically ill in appearance without acute distress Respiratory: Decreased breath sounds at the bases, focally at the right base and mid right lung field Cardiovascular: Rate/Rhythm: regular rate Heart Sounds: no murmur Gastrointestinal (Abdomen): normal bowel sounds, soft, nontender, no hepatosplenomegaly Neurologic: PERRL, EOMI, accommodation nl, no face palsy, no dysarthria (1) Hypotension Hypotension type: unspecified hypotension type Qualified Code(s): I95.9 - Hypotension, unspecified
--- NOTE | 2021-05-10 23:56 | Hospitalist Progress Note ---
Date of Service May 10, 2021 Assessment & Plan (1) Altered mental status: Plan: Metabolic encephalopathy Present on admission with lethargy and mental status while on dialysis Possible related to hypoxia CT head showed no acute intracranial findings. No change in appearance of the brain. No wbc, afebrile Mental status clinically improved (2) ESRD (end stage renal disease): Plan: HD on MWF Nephrology on board Case discussed with Nephrology that said dialysis will not be helping with the large loculated pleural effusion Currently she is being hemodialyzed (3) Acute on chronic systolic CHF (congestive heart failure): Plan: Hx of such, LVEF of 25 to 29%, Hx of LBBB, hypokinetic encinas, dilated IVC and elevated atrial pressure, pulmonary hypertension is highly suspected, severe TR Cardiology on board Continue HD on MWF Continue to require 6 L nasal cannula Plan to resume torsemide when BP stable (4) Acute respiratory failure with hypoxia: Plan: Large Pleural effusion CT chest showed interval increase in large loculated right pleural effusion with compressive atelectasis/collapse again seen involving the right middle lobe and right lower lobe. Case discussed with pulmonology about thoracentesis Pulmonology does not recommend any thoracentesis procedure or pleural catheter placement at this time due to possible entrapped lung Last Thoracentesis back in July patient had developed hemothorax after the thoracentesis, chest tube was placed and was transferred to [place] [facility] review the last few CAT scan showed no significant increase in the right loculated pleural effusion Continue oxygen supplement Palliative care on board (5) Hyperlipidemia: Plan: - Cont atorvastatin (6) Bradycardia: Plan: Atropine x1 was given in route by EMS on the way to the hospital from dialysis Continue to hold beta-walter Cardiology consulted- pending (7) Diabetes mellitus type 2, insulin dependent: Plan: ISS with Accu-Cheks ACHS Continue monitor blood sugar Check hemoglobin A1c in a.m. (8) Peripheral neuropathy: Plan: -History of such secondary to diabetes - gabapentin was discontinued during the last hospital stay (9) GERD (gastroesophageal reflux disease): Plan: - hx of usch, continue omeprazole (10) Hypothyroidism: Plan: TSH is elevated at 8.04 On levothyroxine 75 mcg We will repeat TSH in 4 weeks DVT ppx: teds, scds, heparin subq CODE: DNR/DNI Dispo: Consider transition to hospice/comfort care Admission and Anticipated Discharge Date Admission Date: May 08, 2021 Subjective Patient was seen and examined for follow-up of shortness of breath Lying in bed with no acute distress getting hemodialyzed She said her breathing much better compared to when she came Currently requiring 6 L nasal cannula oxygen supplement Denies any chest pain, palpitation, dizziness, and fever. Review of Systems Review of Systems: All systems reviewed & are unremarkable except as noted in Subjective Physical Exam 2 Physical Exam: General- No acute distress Head- atraumatic Eyes- PERRL, EOMI, ENT- +decreased hearing function Neck- supple, no JVD Lungs- +decrease breath sound in R side Heart- regular rhythm; no murmur Abdomen- normal bowel sounds, soft, nontender Extremities- no calf tenderness Neuro- alert, oriented x 3; PERRL, EOMI; no facial palsy; no dysarthria Skin- warm & dry Results & Data Results & Data ([facility]) Vital Signs (Past 12 Hours) Vital Signs Temp Pulse Pulse Resp BP BP BP 05/10/21 22:48 36.4 C L 85 18 91/48 L 05/10/21 20:02 36.3 C L 62 19 111/82 05/10/21 15:27 82 05/10/21 15:04 36.4 C L 65 105/75 05/10/21 15:03 84 71/47 L 05/10/21 14:40 79 78/45 L 05/10/21 14:20 73 92/38 L 05/10/21 14:00 81 93/46 L 05/10/21 13:40 81 83/44 L 05/10/21 13:20 81 100/51 L 05/10/21 13:00 82 80/45 L 05/10/21 12:40 82 82/48 L 05/10/21 12:32 36.4 C L 82 18 83/44 L 05/10/21 12:20 82 83/44 L 05/10/21 12:00 81 86/45 L Pulse Ox 05/10/21 22:48 99 05/10/21 20:02 99 05/10/21 15:27 05/10/21 15:04 05/10/21 15:03 05/10/21 14:40 05/10/21 14:20 05/10/21 14:00 05/10/21 13:40 05/10/21 13:20 05/10/21 13:00 05/10/21 12:40 05/10/21 12:32 97 05/10/21 12:20 05/10/21 12:00 (1) Altered mental status Altered mental status type: transient alteration of awareness Qualified Code(s): R40.4 - Transient alteration of awareness (2) Hyperlipidemia Hyperlipidemia type: unspecified Qualified Code(s): E78.5 - Hyperlipidemia, unspecified (3) GERD (gastroesophageal reflux disease) Esophagitis presence: without esophagitis Qualified Code(s): K21.9 - Gastro- esophageal reflux disease without esophagitis (4) Hypothyroidism Hypothyroidism type: acquired Qualified Code(s): E03.9 - Hypothyroidism, unspecified
[2021-05-11] MEDS: HEPARIN SOD 5,000 UNIT/0.5 ML VIAL SQ SCH ×2 (09:20→20:51)
[2021-05-11] MEDS: INSULIN GLARGINE SOLOSTAR 100 UNITS/ML 3 ML PEN SC SCH ×2 (09:20→20:33)
[2021-05-11] MEDS: INSULIN ASPART 100 UNITS/ML VIAL SC SCH ×4 (09:22→20:33)
--- NOTE | 2021-05-11 09:45 | Nephrology Progress Note ---
Date of Service May 11, 2021 Assessment & Plan (1) End stage renal disease on dialysis: Plan: Patient with ESRD on dialysis Tuesday at [facility] (on site HD). She missed Tuesday dialysis 05/08. She has a right dilated loculated pleural effusion. pulmonary not recommending thoracentesis as its chronic Patient and son also not willing to undergo thoracentesis at this point -for HD tomorrow and could then from kidney standpoint be d/c to resume OP HD on 05/13 -if she is otherwise ready for d/c, I can scramble to dialyze - will coordinate w/ hospitalist Admission and Anticipated Discharge Date Admission Date: May 08, 2021 Subjective on 4L 02 from 6 when I saw her; no sob, no uncontrolled pain, hungry - eating b reakfast; 10 bts of VT ON; else sinus in 80s. not a pacer candidate d/t comorbidities per cardiology Review of Systems Review of Systems: All systems reviewed & are unremarkable except as noted in Subjective Physical Exam Constitutional: well developed, well nourished and + obese; no acute distress Eyes: EOM intact bilaterally ENMT: Ears: + hearing impairment; no external ear abnormality Nose: no external nose abnormality Mouth: + dry oral mucous membranes Neck: no nuchal rigidity Respiratory: normal respiratory effort Auscultation: + diminished lung sounds Cardiovascular: Rate/Rhythm: regular rate and regular rhythm Extremities: no edema Gastrointestinal (Abdomen): Inspection/Auscultation: normal bowel sounds Percussion/Palpation: abdomen soft; abdomen nontender Musculoskeletal: Extremities: strength 5/5 throughout Skin: no rashes, warm and dry Neurologic: rae, fluent speech, no tremor Psychiatric: Orientation: oriented x 3 Results & Data ([facility]) Vital Signs (Past 12 Hours) Vital Signs Temp Pulse Pulse Resp BP BP Pulse Ox 05/11/21 08:00 36.4 C L 87 18 115/63 96 05/11/21 06:40 18 97 05/11/21 03:36 36.4 C L 87 16 112/66 100 05/11/21 00:59 80 05/10/21 23:00 05/10/21 22:48 36.4 C L 85 18 91/48 L 99 Pulse Ox 05/11/21 08:00 05/11/21 06:40 05/11/21 03:36 05/11/21 00:59 05/10/21 23:00 99 05/10/21 22:48 Laboratory Results 05/10/21 05:16 05/10/21 05:16
[2021-05-11] MEDS ORDERED: SODIUM CHLORIDE 0.9% 1000ML 1,000 ML IV PRN (09:57)
[2021-05-11] MEDS ORDERED: HEPARIN SOD (PORCINE) 1000 UNIT/ML IV ONE (09:57)
--- NOTE | 2021-05-11 10:05 | Cardiology Progress Note ---
Date of Service May 11, 2021 Assessment & Plan (1) Bradycardia: (2) Hypotension: (3) Pleural effusion due to CHF (congestive heart failure): (4) End stage renal disease on dialysis: (5) Acute on chronic systolic CHF (congestive heart failure): Plan: Complex 80-year-old female with end-stage renal disease on hemodialysis, chronic systolic failure, nonischemic cardiomyopathy, and chronic/recurrent right pleural effusion. Pulmonary medicine input appreciated. Patient is not a candidate for repeat thoracentesis at this time. I am concerned regarding recurrent aspiration given physical exam findings and conversation with nursing. Speech/swallow evaluation pending at this time. Risk of infection/complication with cardiac invasive procedures would be significant due to patient's underlying comorbidities, end-stage renal disease, dementia, and tenuous respiratory status. Recommend continue conservative medical management of recurrent/chronic right pleural effusion via hemodialysis. Treatment limited by hypotension and more recently, during this admission, bradycardia. Beta-walter will remain on hold. Continue to monitor telemetry. Poor prognosis. Palliative care following. Admission and Anticipated Discharge Date Admission Date: May 08, 2021 Subjective Patient seen and examined at the bedside. Poor historian and hard of hearing. Coarse breath sounds and gurgling noted. Patient is in no respiratory distress. There are concerns regarding possible aspiration after discussing with nursing staff. Speech/swallow eval pending today. She remains on 4 L nasal cannula. Denies chest pain or shortness of breath at rest. Received hemodialysis treatment yesterday. Telemetry demonstrates sinus rhythm with heart rate ranging from 60-80s. No recurrent bradycardia or tachycardia dysrhythmias recorded. Beta-walter therapy remains on hold. Review of Systems Review of Systems: All systems reviewed & are unremarkable except as noted in Subjective Physical Exam Constitutional: + obese Respiratory: no respiratory distress, no labored breathing and no retractions Auscultation: + diminished lung sounds (Right base and lower lung field) and + rhonchi (Coarse breath sounds on the right side); no crackles, no rales and no wheezes Cardiovascular: Rate/Rhythm: regular rate and regular rhythm Heart Sounds: normal S1 and normal S2; no murmur Vessels: no JVD and no carotid bruit Gastrointestinal (Abdomen): Inspection/Auscultation: abdomen normal to inspection and normal bowel sounds; abdomen not distended Percussio n/Palpation: abdomen soft; abdomen nontender, no guarding and abdomen not rigid Neurologic: CN's II-XI intact bilaterally and moves all extremities; no focal motor deficits Results & Data ([facility]) Vital Signs (Past 12 Hours) Vital Signs Temp Pulse Pulse Resp BP BP Pulse Ox 05/11/21 08:00 36.4 C L 87 18 115/63 96 05/11/21 06:40 18 97 05/11/21 03:36 36.4 C L 87 16 112/66 100 05/11/21 00:59 80 05/10/21 23:00 05/10/21 22:48 36.4 C L 85 18 91/48 L 99 Pulse Ox 05/11/21 08:00 05/11/21 06:40 05/11/21 03:36 05/11/21 00:59 05/10/21 23:00 99 05/10/21 22:48 (1) Hypotension Hypotension type: unspecified hypotension type Qualified Code(s): I95.9 - Hy potension, unspecified
[2021-05-11 10:27] LABS: Hematocrit (blood only) 36.1 % (37-47); Hemoglobin 11.4 g/dL (12.0-16.0); Mean Corpuscular Hemoglobin 34.9 pg (25-34); Mean Corpuscular Hgb Conc 31.6 g/dL (32-36); Mean Corpuscular Volume 110.4 fL (80-100); Mean Platelet Volume 10.3 fL (7.4-10.4); Platelet Count 130 K/uL (130-400); RDW Coefficient of Variation 16.6 % (11.5-14.5); RDW Standard Deviation 66.8 fL (36.4-46.3); Red Blood Count 3.27 M/uL (4.2-5.4); White Blood Count 6.68 K/uL (4.8-10.8)
[2021-05-11 10:50] LABS: Estimated Average Glucose 137 mg/dl; Hemoglobin A1C 6.4 % (4.5-5.6)
[2021-05-11 11:07] LABS: Albumin Globulin Ratio 0.7 (0.9-2); Albumin Level 2.9 gm/dl (3.4-5.0); Bilirubin,Total 1.2 mg/dl (0.2-1); Calcium 8.8 mg/dl (8.5-10.1); Creatinine Clr Calc Pharmacy 11.5 ml/min; Est GFR (African American) 11.5 ml/min; Est GFR (Non-African American) 9.9 ml/min; Globulin 4.4 gm/dl (2.5-4.0); Potassium 3.4 mmol/L (3.5-5.1); Thyroid Stimulating Hormone 5.9 uIu/ml (0.300-4.500); Total Protein 7.3 gm/dl (6.4-8.2)
--- NOTE | 2021-05-11 11:12 | Palliative Care Progress Note ---
Date of Service May 11, 2021 Assessment & Plan (1) Palliative care encounter: Plan: I met with Silva who has improved since our last encounter. She was evaluated by Nephrology and one hemodialysis session was completed here at the hospital with another planned for tomorrow, with possible DC back to [facility] and next HD session on 05/13. I talked with Silva and she said that her breathing does feel 'hard at times'. She stated that she is comfortable with continuing HD, but does know that she has a lot of medical ailments that are not leading to an overall good prognosis. I asked her if she was scared of dying and she emphatically said 'no way, I am 80 years old and have lived a good life. I keep doing this for Anthony'. I asked her if she has ever talked to her son about this and she said 'no, that would just be too hard for him, he is my only one'. Due to the complexity of her care and multiple comorbidities, I think it could be helpful to have a bedside family meeting with her son, while Silva is able, to discuss some of these difficult scenarios and also encourage Silva to express her wishes with her son. I did talk to Anthony on the phone and he was able to visit his Mom yesterday and he even has stated that he asked her if she was fearful of dying and she told him no. Silva's favorite niece is flying in from [place] today so will visit this afternoon. I did stop by to meet with the patients son, but Silva was at HD and her son did not come in today. We discussed that we likely will be able to have Silva return to [facility], but reflecting on the option of her remaining at [facility] should she decline in the future with a focus on discontinuing hemodialysis and focusing on comfort measures at that time. (2) Chronic kidney failure: Plan: Eval by Nephro. Today, creatinine is 5.89. Plan for HD tomorrow (Tuesday) and if tolerates, plan for DC and next HD would be 05/13. Should she decline and overall comfort transition occurs, due to poor renal function, would suggest Dilaudid compared to Morphine due to the possibility of opioid toxicity. (3) Bradycardia: Plan: Eval by Cardiology. No additional bradycardia episodes at this time. Not a pacemaker candidate. (4) Altered mental status: Plan: Mental status improved, hypercapnia improved and she was able to tolerate hemodialysis. Currently, AAOx3 with some good insight into her illness. (5) Dysphagia: Plan: Intermittent coughing with swallowing medications. ST eval pending. Continued goals of care with pt sonAnthony. (6) Pleural effusion: Plan: chronic. Per Pulmonary, no added benefit in an additional thoracentesis. Currently on 4LNC SpO2 95% Audible secretions present. Will order a Scopolamine patch. Admission and Anticipated Discharge Date Admission Date: May 08, 2021 Subjective Pt seen at her bedside. She was AAOx3 with some insight into her illness. She was using accessory muscles for her breathing and had auditory secretions Review of Systems Review of Systems: [place] System Assessment Scale: Pain: 0/3 SOB: 2/3 Lack of Appetite: 1/3 Anxiety: 0/3 Palliative Performance Scale: 30% Physical Exam Constitutional: + obese and + frail appearing ENMT: Mouth: + dry oral mucous membranes Respiratory: + labored breathing and + uses accessory muscles Auscultation: + diminished lung sounds Cardiovascular: Rate/Rhythm: regular rate and regular rhythm Heart Sounds: normal S1 and normal S2 Psychiatric: Orientation: alert and oriented x 3 Insight: + limited insight Results & Data ([facility]) Vital Signs (Past 12 Hours) Vital Signs Temp Pulse Pulse Resp BP BP Pulse Ox 05/11/21 08:00 36.4 C L 87 18 115/63 96 05/11/21 06:40 18 97 05/11/21 03:36 36.4 C L 87 16 112/66 100 05/11/21 00:59 80 PG Care Time/CCT Total # of Minutes Spent Total Time Spent with Patient: Total time spent is greater than 50% in coordination of care (as documented) at patient's floor/unit and/or counseling patient: 45 minutes Coding Level of Care Code 53718 Subseq Hosp Care Lvl 3 Diagnoses Palliative care encounter Z51.5 Altered mental status R40.4 Altered mental status type: transient alteration of awareness Chronic kidney failure N18.5 Chronic kidney disease stage: stage 5 Bradycardia R00.1 Dysphagia R13.10 Pleural effusion J90 Time Spent (min) 45 (1) Altered mental status Altered mental status type: transient alteration of awareness Qualified Code(s): R40.4 - Transient alteration of awareness (2) Chronic kidney failure Chronic kidney disease stage: stage 5 Qualified Code(s): N18.5 - Chronic kidney disease, stage 5
[2021-05-11] MEDS ORDERED: SCOPOLAMINE 1 MG TDSY TD SCH (12:30)
[2021-05-11] MEDS: HEPARIN SOD (PORCINE) 1000 UNIT/ML IV SCH ×2 (14:29→16:38)
[2021-05-11] MEDS: CHECK SCOPOLAMINE PATCH PLACEMENT SCH ×2 (16:39→22:58)
[2021-05-11] MEDS: CARBOHYDRATES FOR HYPOGLYCEMIA PO PRN (16:48)
[2021-05-11] MEDS: ACETAMINOPHEN 325 MG TAB PO PRN (20:51)
--- NOTE | 2021-05-11 22:02 | Hospitalist Progress Note ---
Date of Service May 11, 2021 Assessment & Plan (1) Altered mental status: Plan: Metabolic encephalopathy Present on admission with lethargy and mental status while on dialysis Possible related to hypoxia CT head showed no acute intracranial findings. No change in appearance of the brain. No wbc, afebrile Mental status clinically improved (2) ESRD (end stage renal disease): Plan: HD on MWF Nephrology on board Case discussed with Nephrology that said dialysis will not be helping with the large loculated pleural effusion Dialysis was done today, next HD scheduled for Tuesday (3) Acute on chronic systolic CHF (congestive heart failure): Plan: Hx of such, LVEF of 25 to 29%, Hx of LBBB, hypokinetic encinas, dilated IVC and elevated atrial pressure, pulmonary hypertension is highly suspected, severe TR Cardiology on board Continue HD on MWF Continue to require 4 L nasal cannula Plan to resume torsemide when BP stable (4) Acute respiratory failure with hypoxia: Plan: Large Pleural effusion CT chest showed interval increase in large loculated right pleural effusion with compressive atelectasis/collapse again seen involving the right middle lobe and right lower lobe. Case discussed with pulmonology about thoracentesis Pulmonology does not recommend any thoracentesis procedure or pleural catheter placement at this time due to possible entrapped lung Last Thoracentesis back in July patient had developed hemothorax after the thoracentesis, chest tube was placed and was transferred to [facility] review the last few CAT scan showed no significant increase in the right loculated pleural effusion Continue oxygen supplement Palliative care on board for goals of care (5) Hyperlipidemia: Plan: - Cont atorvastatin (6) Bradycardia: Plan: Atropine x1 was given in route by EMS on the way to the hospital from dialysis Continue to hold beta-walter Cardiology consulted We will discontinue beta-walter on discharge (7) Diabetes mellitus type 2, insulin dependent: Plan: ISS with Accu-Cheks ACHS Continue monitor blood sugar Check hemoglobin A1c in a.m. (8) Peripheral neuropathy: Plan: -History of such secondary to diabetes - gabapentin was discontinued during the last hospital stay (9) GERD (gastroesophageal reflux disease): Plan: - hx of usch, continue omeprazole (10) Hypothyroidism: Plan: TSH is elevated at 8.04 On levothyroxine 75 mcg We will repeat TSH in 4 weeks DVT ppx: teds, scds, heparin subq CODE: DNR/DNI Dispo: Consider transition to hospice/comfort care Admission and Anticipated Discharge Date Admission Date: May 08, 2021 Subjective Patient was seen and examined for follow-up of shortness of breath Lying in bed with no acute distress I watched her walk with physical therapy to the bathroom today She said her breathing much better compared to when she came Currently she is on 4 L nasal cannula oxygen Nephrology is planning to dialyze her today Denies any chest pain, palpitation, dizziness, and fever. Review of Systems Review of Systems: All systems reviewed & are unremarkable except as noted in Subjective Physical Exam Physical Exam: General- No acute distress Head- atraumatic Eyes- PERRL, EOMI, ENT- +decreased hearing function Neck- supple, no JVD Lungs- +decrease breath sound in R side Heart- regular rhythm; no murmur Abdomen- normal bowel sounds, soft, nontender Extremities- no calf tenderness Neuro- alert, oriented x 3; PERRL, EOMI; no facial palsy; no dysarthria Skin- warm & dry Results & Data Results & Data ([facility]) Vital Signs (Past 12 Hours) Vital Signs Temp Pulse Pulse Resp BP BP Pulse Ox 05/11/21 19:15 36.7 C 92 H 20 105/65 91 05/11/21 17:42 98 H 05/11/21 15:25 36.5 C 98 H 102/82 05/11/21 15:20 110 H 106/84 05/11/21 15:00 92 H 97/76 L 05/11/21 14:40 88 105/77 05/11/21 14:20 77 128/63 05/11/21 14:00 83 118/67 05/11/21 13:40 82 120/64 05/11/21 13:20 82 119/67 05/11/21 13:15 36.3 C L 84 (1) Hyperlipidemia Hyperlipidemia type: unspecified Qualified Code(s): E78.5 - Hyperlipidemia, unspecified (2) Hypothyroidism Hypothyroidism type: acquired Qualified Code(s): E03.9 - Hypothyroidism, unspecified (3) Altered mental status Altered mental status type: transient alteration of awareness Qualified Code(s): R40.4 - Transient alteration of awareness (4) GERD (gastroesophageal reflux disease) Esophagitis presence: without esophagitis Qualified Code(s): K21.9 - Gastro- esophageal reflux disease without esophagitis
[2021-05-12] MEDS: CARBOHYDRATES FOR HYPOGLYCEMIA PO PRN ×2 (07:31→07:52)
[2021-05-12 07:56] LABS: Hematocrit (blood only) 36.2 % (37-47); Hemoglobin 11.4 g/dL (12.0-16.0); Mean Corpuscular Hemoglobin 34.9 pg (25-34); Mean Corpuscular Hgb Conc 31.5 g/dL (32-36); Mean Corpuscular Volume 110.7 fL (80-100); Mean Platelet Volume 10.5 fL (7.4-10.4); Platelet Count 115 K/uL (130-400); RDW Coefficient of Variation 16.6 % (11.5-14.5); RDW Standard Deviation 65.8 fL (36.4-46.3); Red Blood Count 3.27 M/uL (4.2-5.4); White Blood Count 6.19 K/uL (4.8-10.8)
[2021-05-12 08:38] LABS: BUN Creatinine Ratio 6.4 (10-20); Calcium 8.7 mg/dl (8.5-10.1); Creatinine Clr Calc Pharmacy 12.1 ml/min; Est GFR (African American) 12.3 ml/min; Est GFR (Non-African American) 10.6 ml/min; Potassium 3.7 mmol/L (3.5-5.1)
[2021-05-12] MEDS: INSULIN GLARGINE SOLOSTAR 100 UNITS/ML 3 ML PEN SC SCH (08:55)
[2021-05-12] MEDS: INSULIN ASPART 100 UNITS/ML VIAL SC SCH ×4 (08:56→20:45)
[2021-05-12] MEDS: HEPARIN SOD 5,000 UNIT/0.5 ML VIAL SQ SCH (08:58)
--- NOTE | 2021-05-12 09:44 | Cardiology Progress Note ---
Date of Service May 12, 2021 Assessment & Plan (1) Pleural effusion due to CHF (congestive heart failure): (2) Acute on chronic systolic CHF (congestive heart failure): (3) End stage renal disease on dialysis: (4) Bradycardia: (5) Hypotension: Plan: Complex 80-year-old female with end-stage renal disease on hemodialysis, chronic systolic failure, nonischemic cardiomyopathy, and chronic/recurrent right pleural effusion. Pulmonary medicine input appreciated. Patient is not a candidate for repeat thoracentesis at this time. Patient evaluated by speech medicine recommending minced and moist diet. Continue conservative medical management from a cardiovascular perspective. Treatment limited by hypotension and more recently, during this admission, bradycardia. Beta-walter will remain on hold. Continue to monitor telemetry. Poor prognosis. Palliative care following. Admission and Anticipated Discharge Date Admission Date: May 08, 2021 Subjective Patient seen examined the bedside. Hard of hearing and poor historian. Denies chest pain or shortness of breath. Respiratory status subjectively improved today. Notes intermittent cough without sputum production. Telemetry reveals sinus rhythm. No recurrent bradycardia. Review of Systems Review of Systems: All systems reviewed & are unremarkable except as noted in Subjective Physical Exam Constitutional: + obese Respiratory: no respiratory distress, no labored breathing and no retractions Auscultation: + diminished lung sounds (Right base and lower lung field) and + rhonchi (Coarse breath sounds on the right side); no crackles, no rales and no wheezes Cardiovascular: Rate/Rhythm: regular rate and regular rhythm Heart Sounds: normal S1 and normal S2; no murmur Vessels: no JVD and no carotid bruit Gastrointestinal (Abdomen): Inspection/Auscultation: abdomen normal to inspection and normal bowel sounds; abdomen not distended Percussion/Palpation: abdomen soft; abdomen nontender, no guarding and abdomen not rigid Neurologic: CN's II-XI intact bilaterally and moves all extremities; no focal motor deficits Results & Data ([facility]) Vital Signs (Past 12 Hours) Vital Signs Temp Pulse Pulse Resp BP BP Pulse Ox 05/12/21 07:35 36.5 C 90 24 146/72 H 96 05/12/21 03:45 36.4 C L 83 20 112/73 97 05/12/21 00:01 94 H 05/11/21 23:45 36.7 C 92 H 18 97/62 L 96 05/11/21 23:00 Pulse Ox 05/12/21 07:35 05/12/21 03:45 05/12/21 00:01 05/11/21 23:45 05/11/21 23:00 97 (1) Hypotension Hypotension type: unspecified hypotension type Qualified Code(s): I95.9 - Hypotension, unspecified
[2021-05-12] MEDS: CHECK SCOPOLAMINE PATCH PLACEMENT SCH ×3 (10:22→22:55)
[2021-05-12] MEDS: SCOPOLAMINE 1 MG TDSY TD SCH (10:23)
[2021-05-12] MEDS ORDERED: AMIODARONE IV BOLUS & DRIP IV STA (11:56)
[2021-05-12] MEDS ORDERED: STAT IV Infusion **Titration per Protocol STA (11:56)
[2021-05-12] MEDS ORDERED: 0.2 MICRON FILTER SET 1 EA IV ONE (11:56)
[2021-05-12] MEDS ORDERED: AMIODARONE / D5W 150 MG/100 ML BAG IV STA (11:56)
--- NOTE | 2021-05-12 11:58 | Communication Note ---
Date of Service: May 12, 2021 Pt noted to have rhythm change to was appears to be atrial flutter at 126 bpm. Asymptomatic. Plan: EKG now. Amiodarone infusion. Hold off on anticoagulation for now, will reassess.
[2021-05-12] MEDS ORDERED: AMIODARONE / D5W 360 MG/200 ML BAG IV ONE (12:06)
--- NOTE | 2021-05-12 16:21 | Communication Note ---
Date of Service: May 12, 2021 Telemetry followed up, patient converted from atrial flutter back to sinus rhythm shortly after amiodarone bolus was administered at 1535. Currently sinus rhythm in the 80s noted. Continue IV amiodarone without anticoagulation for now. Concern with regards to potential bleeding risk.
--- NOTE | 2021-05-12 16:38 | Electrocardiogram Report ---
Test Reason : Blood Pressure : / mmHG Vent. Rate : 127 BPM Atrial Rate : 127 BPM P-R Int : 144 ms QRS Dur : 132 ms QT Int : 372 ms P-R-T Axes : 000 150 245 degrees QTc Int : 540 ms Sinus tachycardia Non-specific intra-ventricular conduction block Poor R wave progression, consider anterior AL vs. lead placement vs. LVH Abnormal ECG When compared with ECG of 10-MAY-2021 04:48, No significant change was found Confirmed by Fidel Hood ([id number]) on 05/12/2021 4:38:27 PM Referred By: REFERRED SELF Confirmed By:Fidel Hood
[2021-05-12] MEDS: AMIODARONE / D5W 360 MG/200 ML BAG IV SCH (19:12)
--- NOTE | 2021-05-12 19:56 | Communication Note ---
Date of Service: May 12, 2021 Patient with new bruising on RUE. platelets in AM 115 Hold heparin subcu for now.
[2021-05-12 20:20] LABS: Basophils # (auto) 0.05 K/uL (0-0.2); Basophils % (auto) 0.8 %; Eosinophils # (auto) 0.27 K/uL (0-0.5); Eosinophils % (auto) 4.5 %; Hematocrit (blood only) 34.8 % (37-47); Hemoglobin 11.2 g/dL (12.0-16.0); Immature Granulocytes # (auto) 0.02 K/uL (0.00-0.02); Immature Granulocytes % (auto) 0.3 %; Lymphocytes # (auto) 0.75 K/uL (1.2-3.4); Lymphocytes % (auto) 12.6 %; Mean Corpuscular Hemoglobin 35.4 pg (25-34); Mean Corpuscular Hgb Conc 32.2 g/dL (32-36); Mean Corpuscular Volume 110.1 fL (80-100); Mean Platelet Volume 10.2 fL (7.4-10.4); Monocytes # (auto) 0.67 K/uL (0.11-0.59); Monocytes % (auto) 11.3 %; Neutrophils # (auto) 4.19 K/uL (1.4-6.5); Neutrophils % (auto) 70.5 %; Platelet Count 112 K/uL (130-400); RDW Coefficient of Variation 16.6 % (11.5-14.5); RDW Standard Deviation 65.9 fL (36.4-46.3); Red Blood Count 3.16 M/uL (4.2-5.4); White Blood Count 5.95 K/uL (4.8-10.8)
[2021-05-12 20:33] LABS: INR 1.4 (0.9-1.1); Partial Thromboplastin Ratio 1.2; Partial Thromboplastin Time 32.3 Seconds (21.0-31.0); Prothrombin Time 13.5 Seconds (9.0-12.0)
[2021-05-12 20:56] LABS: Macrocytosis Present
[2021-05-12] MEDS: ACETAMINOPHEN 325 MG TAB PO PRN (21:06)
--- NOTE | 2021-05-12 23:44 | Hospitalist Progress Note ---
Date of Service May 12, 2021 Assessment & Plan (1) Altered mental status: Plan: Metabolic encephalopathy Present on admission with lethargy and mental status while on dialysis Possible related to hypoxia CT head showed no acute intracranial findings. No change in appearance of the brain. No wbc, afebrile Mental status clinically improved (2) ESRD (end stage renal disease): Plan: HD on MWF Nephrology on board Case discussed with Nephrology that said dialysis will not be helping with the large loculated pleural effusion Dialysis was done yesterday, next HD scheduled for Tuesday (3) Acute on chronic systolic CHF (congestive heart failure): Plan: Hx of such, LVEF of 25 to 29%, Hx of LBBB, hypokinetic encinas, dilated IVC and elevated atrial pressure, pulmonary hypertension is highly suspected, severe TR Cardiology on board Continue HD on MWF Continue 2L nasal cannula Torsemide on hold due to hypotension (4) Acute respiratory failure with hypoxia: Plan: Large Pleural effusion CT chest showed interval increase in large loculated right pleural effusion with compressive atelectasis/collapse again seen involving the right middle lobe and right lower lobe. Case discussed with pulmonology about thoracentesis Pulmonology does not recommend any thoracentesis procedure or pleural catheter placement at this time due to possible entrapped lung Last Thoracentesis back in July patient had developed hemothorax after the thoracentesis, chest tube was placed and was transferred to [facility] review the last few CAT scan showed no significant increase in the right loculated pleural effusion Continue oxygen supplement Palliative care on board for goals of care (5) Atrial flutter: Plan: Brief episode of Atrial flutter on tele monitor Asymptomatic Converted back to sinus rhythm before started on amiodarone drip No anticoagulant due to potential risk of bleeding continue monitor in tele (6) Hyperlipidemia: Plan: - Cont atorvastatin (7) Bradycardia: Plan: Atropine x1 was given in route by EMS on the way to the hospital from dialysis Continue to hold beta-walter Cardiology consulted We will discontinue beta-walter on discharge (8) Diabetes mellitus type 2, insulin dependent: Plan: ISS with Accu-Cheks ACHS Continue monitor blood sugar Check hemoglobin A1c in a.m. (9) Peripheral neuropathy: Plan: -History of such secondary to diabetes - gabapentin was discontinued during the last hospital stay (10) GERD (gastroesophageal reflux disease): Plan: - hx of usch, continue omeprazole (11) Hypothyroidism: Plan: TSH is elevated at 8.04 On levothyroxine 75 mcg We will repeat TSH in 4 weeks DVT ppx: teds, scds, heparin subq CODE: DNR/DNI Dispo: Palliative care on board for goal of care Admission and Anticipated Discharge Date Admission Date: May 08, 2021 Subjective Patient was seen and examined for follow-up of shortness of breath Lying in bed with no acute distress Pt patient was going to be discharged today but went to atrial flutter It was shown on tele monitor She denies any symptoms such as chest pain, palpitation, dizziness and fever Review of Systems Review of Systems: All systems reviewed & are unremarkable except as noted in Subjective Physical Exam Physical Exam: General- No acute distress Head- atraumatic Eyes- PERRL, EOMI, ENT- +decreased hearing function Neck- supple, no JVD Lungs- +decrease breath sound in R side Heart- regular rhythm; no murmur Abdomen- normal bowel sounds, soft, nontender Extremities- no calf tenderness Neuro- alert, oriented x 3; PERRL, EOMI; no facial palsy; no dysarthria Skin- warm & dry Results & Data Results & Data ([facility]) Vital Signs (Past 12 Hours) Vital Signs Temp Pulse Pulse Resp BP BP Pulse Ox 05/12/21 22:58 79 05/12/21 19:27 36.4 C L 78 20 101/62 96 05/12/21 16:08 86 05/12/21 15:19 36.4 C L 85 16 114/71 98 (1) Hyperlipidemia Hyperlipidemia type: unspecified Qualified Code(s): E78.5 - Hyperlipidemia, unspecified (2) Hypothyroidism Hypothyroidism type: acquired Qualified Code(s): E03.9 - Hypothyroidism, unspecified (3) Altered mental status Altered mental status type: transient alteration of awareness Qualified Code(s): R40.4 - Transient alteration of awareness (4) GERD (gastroesophageal reflux disease) Esophagitis presence: without esophagitis Qualified Code(s): K21.9 - Gastro- esophageal reflux disease without esophagitis
[2021-05-13] MEDS: AMIODARONE / D5W 360 MG/200 ML BAG IV SCH (06:15)
[2021-05-13] MEDS ORDERED: SODIUM CHLORIDE 0.9% 1000ML 1,000 ML IV PRN (07:47)
[2021-05-13] MEDS ORDERED: HEPARIN SOD (PORCINE) 1000 UNIT/ML IV SCH (08:00)
[2021-05-13] MEDS: CHECK SCOPOLAMINE PATCH PLACEMENT SCH ×2 (08:22→16:53)
[2021-05-13] MEDS: INSULIN ASPART 100 UNITS/ML VIAL SC SCH ×4 (09:09→21:26)
--- NOTE | 2021-05-13 10:32 | Cardiology Progress Note ---
Date of Service May 13, 2021 Assessment & Plan (1) Atrial flutter: (2) Pleural effusion due to CHF (congestive heart failure): (3) Acute on chronic systolic CHF (congestive heart failure): (4) End stage renal disease on dialysis: (5) Bradycardia: (6) Hypotension: Plan: Complex 80-year-old female with end-stage renal disease on hemodialysis, chronic systolic failure, nonischemic cardiomyopathy, and chronic/recurrent right pleural effusion. Paroxysmal atrial flutter with rapid ventricular response recorded yesterday 05/12/2021 with subsequent conversion to sinus rhythm. Recommend discontinuation of IV amiodarone infusion. Initiate oral amiodarone, 200 mg twice daily. Pulmonary medicine input appreciated. Patient is not a candidate for repeat thoracentesis at this time. Patient evaluated by speech medicine recommending minced and moist diet. Continue conservative medical management from a cardiovascular perspective. Treatment limited by hypotension and more recently, during this admission, bradycardia. Beta-walter discontinued, however, will cautiously initiate antiarrhythmic therapy to maintain sinus rhythm. Continue to monitor telemetry. Poor prognosis. Palliative care following. Admission and Anticipated Discharge Date Admission Date: May 08, 2021 Subjective Patient seen examined the bedside. Confused today. Denies chest pain or shortness of breath. Paroxysmal atrial flutter recorded yesterday. IV amiodarone initiated with subsequent conversion to sinus rhythm. She has remained in sinus rhythm overnight. Review of Systems Review of Systems: Unobtainable due to cognitive status Physical Exam Constitutional: + obese Respiratory: no respiratory distress, no labored breathing and no retractions Auscultation: + diminished lung sounds (Right base and lower lung field) and + rhonchi (Coarse breath sounds on the right side); no crackles, no rales and no wheezes Cardiovascular: Rate/Rhythm: regular rate and regular rhythm Heart Sounds: normal S1 and normal S2; no murmur Vessels: no JVD and no carotid bruit Gastrointestinal (Abdomen): Inspection/Auscultation: abdomen normal to inspection and normal bowel sounds; abdomen not distended Percussion/Palpation: abdomen soft; abdomen nontender, no guarding and abdomen not rigid Neurologic: CN's II-XI intact bilaterally and moves all extremities; no focal motor deficits Results & Data ([facility]) Vital Signs (Past 12 Hours) Vital Signs Temp Pulse Pulse Resp BP BP Pulse Ox 05/13/21 07:11 77 05/13/21 07:00 37.0 C 89 16 115/69 95 05/13/21 04:38 36.6 C 77 18 110/54 L 97 05/12/21 23:44 36.6 C 76 18 107/66 95 05/12/21 22:58 79 (1) Hypotension Hypotension type: unspecified hypotension type Qualified Code(s): I95.9 - Hypotension, unspecified
--- NOTE | 2021-05-13 14:27 | Nephrology Progress Note ---
Date of Service May 13, 2021 Assessment & Plan (1) End stage renal disease on dialysis: Plan: Patient with ESRD on dialysis Tuesday at [facility] (on site HD). She missed Tuesday dialysis 05/08. She has a right loculated pleural effusion, not a thoracentesis candidate. For conservative mgt of cardiac issues per cardiology -- note they are recommending po amio at this time. palliative following as well / today w/ confusion -for HD today and next tx as IP or OP on 05/15; goal up to 3L off today as bp tolerates; no TIFFANY indicated -may need delirium w/u Admission and Anticipated Discharge Date Admission Date: May 08, 2021 Subjective confused today > talking coherently/fluently about people who aren't there; no c/o sob, no c/o pain in ribs or abd. started on amio gtt ON after atrial flutter in to 120s Review of Systems Review of Systems: Unobtainable due to cognitive status (limited by cog status) Physical Exam Constitutional: well developed, well nourished and + obese; no acute distress Eyes: EOM intact bilaterally ENMT: Ears: + hearing impairment; no external ear abnormality Nose: no external nose abnormality Mouth: + dry oral mucous membranes Neck: no nuchal rigidity Respiratory: normal respiratory effort Auscultation: + diminished lung sounds Cardiovascular: Rate/Rhythm: regular rate and regular rhythm Extremities: no edema Gastrointestinal (Abdomen): Inspection/Auscultation: normal bowel sounds Percussion/Palpation: abdomen soft; abdomen nontender Musculoskeletal: Extremities: strength 5/5 throughout Skin: no rashes, warm and dry Psychiatric: Orientation: oriented x 3 Results & Data ([facility]) Vital Signs (Past 12 Hours) Vital Signs Temp Pulse Pulse Resp BP BP BP 05/13/21 14:20 81 109/66 05/13/21 14:00 76 121/65 05/13/21 13:40 70 115/69 05/13/21 13:20 89 118/50 L 05/13/21 13:00 68 98/53 L 05/13/21 12:40 79 138/73 05/13/21 12:25 77 151/63 H 05/13/21 12:20 37.0 C 71 05/13/21 07:11 77 05/13/21 07:00 37.0 C 89 16 115/69 05/13/21 04:38 36.6 C 77 18 110/54 L Pulse Ox 05/13/21 14:20 05/13/21 14:00 05/13/21 13:40 05/13/21 13:20 05/13/21 13:00 05/13/21 12:40 05/13/21 12:25 05/13/21 12:20 05/13/21 07:11 05/13/21 07:00 95 05/13/21 04:38 97 Laboratory Results 05/12/21 20:02 05/12/21 07:36
--- NOTE | 2021-05-13 16:16 | Electrocardiogram Report ---
Test Reason : Blood Pressure : / mmHG Vent. Rate : 071 BPM Atrial Rate : 071 BPM P-R Int : 172 ms QRS Dur : 130 ms QT Int : 444 ms P-R-T Axes : 044 129 170 degrees QTc Int : 482 ms Normal sinus rhythm with sinus arrhythmia Non-specific intra-ventricular conduction block Possible Anterolateral infarct (cited on or before 13-MAY-2021) Abnormal ECG When compared with ECG of 12-MAY-2021 12:09, Vent. rate has decreased BY 56 BPM Questionable change in initial forces of Lateral leads Nonspecific T wave abnormality, worse in Lateral leads Confirmed by Fidel Hood ([id number]) on 05/13/2021 4:16:17 PM Referred By: REFERRED SELF Confirmed By:Fidel Hood
[2021-05-13] MEDS: AMIODARONE 200 MG TAB PO SCH ×2 (17:29→17:43)
--- NOTE | 2021-05-13 20:18 | Hospitalist Progress Note ---
Date of Service May 13, 2021 delayed entry date of service noted above Assessment & Plan (1) Altered mental status: Plan: Metabolic encephalopathy Present on admission with lethargy and mental status while on dialysis Possible related to hypoxia -- confused today no fever, signs of infection -- possible hospital delirium had similar presentation last month -- monitor closely (2) ESRD (end stage renal disease): Plan: HD on MWF Nephrology on board (3) Acute on chronic systolic CHF (congestive heart failure): Plan: Hx of such, LVEF of 25 to 29%, Hx of LBBB, hypokinetic encinas, dilated IVC and elevated atrial pressure, pulmonary hypertension is highly suspected, severe TR Cardiology on board Continue HD on MWF Continue 2L nasal cannula -- appears euvolemic (4) Acute respiratory failure with hypoxia: Plan: per Dr. Bhagat's notes: Large Pleural effusion CT chest showed interval increase in large loculated right pleural effusion with compressive atelectasis/collapse again seen involving the right middle lobe and right lower lobe. Case discussed with pulmonology about thoracentesis Pulmonology does not recommend any thoracentesis procedure or pleural catheter placement at this time due to possible entrapped lung Last Thoracentesis back in July patient had developed hemothorax after the thoracentesis, chest tube was placed and was transferred to [facility] review the last few CAT scan showed no significant increase in the right loculated pleural effusion Continue oxygen supplement Palliative care on board for goals of care -- stable (5) Atrial flutter: Plan: Brief episode of Atrial flutter on tele monitor -- on PO Amiodarone (6) Hyperlipidemia: Plan: - Cont atorvastatin (7) Bradycardia: Plan: Atropine x1 was given in route by EMS on the way to the hospital from dialysis Mindy fish (8) Diabetes mellitus type 2, insulin dependent: Plan: ISS with Accu-Cheks ACHS Continue monitor blood sugar (9) Peripheral neuropathy: Plan: -History of such secondary to diabetes - gabapentin was discontinued during the last hospital stay (10) GERD (gastroesophageal reflux disease): Plan: - hx of usch, continue omeprazole (11) Hypothyroidism: Plan: TSH is elevated at 8.04 On levothyroxine 75 mcg repeat TSH in 4 weeks DVT ppx: teds, scds, heparin subq CODE: DNR/DNI Dispo: Palliative care on board for goal of care Admission and Anticipated Discharge Date Admission Date: May 08, 2021 Subjective ff up for altered mental status, etc seen resting in bed, not in distress confused, not answering to questions/commands somewhat drowsy no other 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 of Systems Review of Systems: Unobtainable due to cognitive status Physical Exam Physical Exam: General- not oriented; breathing with no effort or accessory muscle use Eyes- anicteric Neck- no JVD Lungs- clear breath sounds bilaterally, no rales/wheezes Heart- normal rate, regular rhythm; no murmurs Abdomen- normal bowel sounds, nondistended, soft, nontender Extremities- no pretibial edema, no calf tenderness Neuro- drowsy, confused, moves all extremities equally Skin- warm & dry Results & Data Results & Data ([facility]) Vital Signs (Past 12 Hours) Vital Signs Temp Pulse Pulse Resp BP BP BP 05/13/21 20:07 37.0 C 78 17 112/57 L 05/13/21 16:15 36.6 C 78 122/65 05/13/21 16:09 74 108/77 05/13/21 16:00 79 104/63 05/13/21 15:40 76 128/68 05/13/21 15:20 71 113/62 05/13/21 15:00 79 150/69 H 05/13/21 14:47 72 122/60 05/13/21 14:40 77 125/63 05/13/21 14:20 81 109/66 05/13/21 14:00 76 121/65 05/13/21 13:40 70 115/69 05/13/21 13:20 89 118/50 L 05/13/21 13:00 68 98/53 L 05/13/21 12:40 79 138/73 05/13/21 12:25 77 151/63 H 05/13/21 12:20 37.0 C 71 Pulse Ox 05/13/21 20:07 95 05/13/21 16:15 05/13/21 16:09 05/13/21 16:00 05/13/21 15:40 05/13/21 15:20 05/13/21 15:00 05/13/21 14:47 05/13/21 14:40 05/13/21 14:20 05/13/21 14:00 05/13/21 13:40 05/13/21 13:20 05/13/21 13:00 05/13/21 12:40 05/13/21 12:25 05/13/21 12:20 all noted and reviewed including below (1) Hyperlipidemia Hyperlipidemia type: unspecified Qualified Code(s): E78.5 - Hyperlipidemia, unspecified (2) Hypothyroidism Hypothyroidism type: acquired Qualified Code(s): E03.9 - Hypothyroidism, unspecified (3) Altered mental status Altered mental status type: transient alteration of awareness Qualified Code(s): R40.4 - Transient alteration of awareness (4) GERD (gastroesophageal reflux disease) Esophagitis presence: without esophagitis Qualified Code(s): K21.9 - Gastro- esophageal reflux disease without esophagitis
[2021-05-14 08:10] LABS: Hematocrit (blood only) 35.4 % (37-47); Hemoglobin 11.4 g/dL (12.0-16.0); Mean Corpuscular Hemoglobin 35.2 pg (25-34); Mean Corpuscular Hgb Conc 32.2 g/dL (32-36); Mean Corpuscular Volume 109.3 fL (80-100); RDW Coefficient of Variation 16.6 % (11.5-14.5); RDW Standard Deviation 65.7 fL (36.4-46.3); Red Blood Count 3.24 M/uL (4.2-5.4); White Blood Count 4.72 K/uL (4.8-10.8)
[2021-05-14 08:43] LABS: Mean Platelet Volume 10.3 fL (7.4-10.4); Platelet Count 93 K/uL (130-400); Platelet Estimate Decreased (Normal)
[2021-05-14] MEDS: INSULIN ASPART 100 UNITS/ML VIAL SC SCH ×4 (08:51→22:03)
[2021-05-14] MEDS: CHECK SCOPOLAMINE PATCH PLACEMENT SCH ×3 (08:52→16:55)
[2021-05-14] MEDS: AMIODARONE 200 MG TAB PO SCH ×3 (08:54→18:14)
--- NOTE | 2021-05-14 09:19 | CT Scan Report ---
HEAD CT NONCONTRAST CT DOSE: 1228.53 mGy.cm HISTORY: Confusion. altered mental status TECHNIQUE: Multiaxial CT images of the head were performed without the use of intravenous contrast. A utomated exposure control was utilized for this study. A dose lowering technique was utilized adheri ng to the principles of ALARA. Comparison: Head CT 05/08/2021. Findings: The paranasal sinuses and mastoid air cells are clear. The calvarium and skull base are int act. There is no mass, hematoma, midline shift, acute infarct. White matter hypodensity is nonspecifi c but suggestive of microvascular ischemic change. The ventricles and sulci demonstrate mild age-rela volodymyr involutional changes. Old punctate lacunar infarcts within the left thalamus. Impression: No significant change compared to the prior study. No acute intracranial abnormality. ACT 112: Negative or not required by law. Electronically signed by: Cristóbal Means M.D. 05/14/2021 9:18 AM
--- NOTE | 2021-05-14 11:03 | Nephrology Progress Note ---
Date of Service May 14, 2021 Assessment & Plan (1) End stage renal disease on dialysis: Plan: Patient with ESRD on dialysis Tuesday at [facility] (on site HD). She missed Tuesday dialysis 05/08. She has a large and growing right loculated pleural effusion, not a thoracentesis candidate. For conservative mgt of cardiac issues per cardiology -- now on po amio and w/ sinus rhythm ON. palliative following as well and family conference planned -for next HD tx as IP on 05/15 if appropriate -alerted primary service may need more focus on palliative discussion -may need delirium w/u Admission and Anticipated Discharge Date Admission Date: May 08, 2021 Subjective tolerated 3L UF yesterday; cardiology/hospitalist notes reviewed. even more confused this am than yesterday when I saw her Review of Systems Review of Systems: Unobtainable due to cognitive status Physical Exam Constitutional: well developed, well nourished, + acute distress (picking, mumbling), + obese and + disheveled (has pulled off all her coverings/clothing/02) Eyes: EOM intact bilaterally ENMT: Ears: + hearing impairment; no external ear abnormality Nose: no external nose abnormality Mouth: + dry oral mucous membranes Neck: no nuchal rigidity Respiratory: normal respiratory effort Auscultation: + diminished lung sounds (anterior exam; lying flat on RA) Cardiovascular: Rate/Rhythm: regular rate and regular rhythm Extremities: no edema Gastrointestinal (Abdomen): Inspection/Auscultation: normal bowel sounds P ercussion/Palpation: abdomen soft; abdomen nontender Musculoskeletal: Extremities: + abnormal strength Skin: no rashes, warm and dry Neurologic: rae, fluent but incomprehensible speech Psychiatric: Orientation: oriented x 3 Results & Data ([facility]) Vital Signs (Past 12 Hours) Vital Signs Temp Pulse Pulse Resp BP BP Pulse Ox 05/14/21 08:00 36.8 C 79 20 119/65 95 05/14/21 03:29 36.4 C L 92 H 18 107/62 97 05/13/21 23:44 36.6 C 88 17 128/75 96 05/13/21 23:10 90 Pulse Ox 05/14/21 08:00 05/14/21 03:29 97 05/13/21 23:44 05/13/21 23:10 Laboratory Results 05/14/21 07:48 05/12/21 07:36
--- NOTE | 2021-05-14 11:15 | Cardiology Progress Note ---
Date of Service May 14, 2021 Assessment & Plan (1) Atrial flutter: (2) Pleural effusion due to CHF (congestive heart failure): (3) Acute on chronic systolic CHF (congestive heart failure): (4) End stage renal disease on dialysis: (5) Bradycardia: (6) Hypotension: Plan: Complex 80-year-old female with end-stage renal disease on hemodialysis, chronic systolic failure, nonischemic cardiomyopathy, and chronic/recurrent right pleural effusion. Paroxysmal atrial flutter with rapid ventricular response recorded 05/12/2021 with subsequent conversion to sinus rhythm. IV amiodarone discontinued. Unable to take oral meds last evening due to mental status. More alert today. Discussed with nursing. She will attempt to give medication with applesauce today. Continue to monitor telemetry. Patient received hemodialysis yesterday. Recommend removing fluid as tolerated although management of her chronic pleural effusion refractory to medical therapy/dialysis. Pulmonary medicine input appreciated. Patient is not a candidate for repeat thoracentesis at this time. Continue conservative medical management from a cardiovascular perspective. Treatment limited by hypotension and more recently, during this admission, bradycardia. Beta-walter discontinued, however, will cautiously continue antiarrhythmic therapy to maintain sinus rhythm. Poor prognosis. Palliative care following. Admission and Anticipated Discharge Date Admission Date: May 08, 2021 Subjective Patient seen and examined at the bedside. More alert today. Following commands and answer some questions appropriately. Denies chest pain or shortness of breath. Review of Systems Review of Systems: All systems reviewed & are unremarkable except as noted in Subjective Physical Exam Constitutional: + obese Respiratory: no respiratory distress, no labored breathing and no retractions Auscultation: + diminished lung sounds (Right base and lower lung field) and + rhonchi (Coarse breath sounds on the right side); no crackles, no rales and no wheezes Cardiovascular: Rate/Rhythm: regular rate and regular rhythm Heart Sounds: normal S1 and normal S2; no murmur Vessels: no JVD and no carotid bruit Gastrointestinal (Abdomen): Inspection/Auscultation: abdomen normal to inspection and normal bowel sounds; abdomen not distended Percussion/Palpation: abdomen soft; abdomen nontender, no guarding and abdomen not rigid Neurologic: CN's II-XI intact bilaterally and moves all extremities; no focal motor deficits Results & Data ([facility]) Vital Signs (Past 12 Hours) Vital Signs Temp Pulse Resp BP BP Pulse Ox Pulse Ox 05/14/21 08:00 36.8 C 79 20 119/65 95 05/14/21 03:29 36.4 C L 92 H 18 107/62 97 97 05/13/21 23:44 36.6 C 88 17 128/75 96 (1) Hypotension Hypotension type: unspecified hypotension type Qualified Code(s): I95.9 - Hypotension, unspecified
--- NOTE | 2021-05-14 13:21 | Psychiatric Consultation ---
Date of Consultation May 14, 2021 Impression / Recommendations Impression 80 yo female with multiple medical factors contributing to hospital acquired delirium, most notably ESRD with inoculated pleural effusions for which now receiving scopolamine patch given audible secretions per palliative. She is also taking amiodarone and neuropsychiatric toxicity can occur even an normal levels in compromised patients. (1) Altered mental status: Altered mental status type: unspecified Qualified Code(s): R41.82 - Altered mental status, unspecified standard delirium behavioral interventions Zyprexa IM prn seems appropriate if would become agitated otherwise minimize anticholinergics and polypharmacy where possible Psych History Identifying Data 80 yo female readmit [facility] 05/08 from [facility] following discharge from [facility] 04/24/21. Consult is by hospitalist service for delirium. Chief Complaint "he's not available today". when I asked her last name. History of Present Illness No known psych history, admit for CHR, pleural effusion, a flutter, elevated TSH (needs repeat). Last admint of Zyprexa 2.5 mg IM (one dose) 05/09/21. Per nursing becomes confused at times as if experiencing visual hallucinations and took off O2 and attempted to take out IV. Patient is not able to provide history. Hospitalist feels worse in past 1-2 days. Allergies Allergy/AdvReac Type Severity Reaction Status Date / Time fish derived Allergy Severe Anaphylaxis Verified 05/08/21 09:31 alcohol Allergy Intermediate bumps on Verified 05/08/21 09:31 skin with alcohol wipes Aminoglycosides Allergy Intermediate Rash Verified 05/08/21 09:31 polymyxin B Allergy Intermediate Rash Verified 05/08/21 09:31 neomycin Allergy Mild Rash Verified 05/08/21 09:31 aminophylline Allergy Unknown Unknown Verified 05/08/21 13:24 iodine Allergy Unknown Unknown Verified 05/08/21 09:31 nystatin Allergy Unknown Unknown Verified 05/08/21 13:24 promethazine Allergy Unknown Unknown Verified 05/08/21 09:31 adhesive AdvReac Mild bumps on Verified 05/08/21 09:31 skin with "tape" Home Medications Medication Instructions Recorded Confirmed Type acetaminophen 325 mg tablet 650 mg PO Q6 PRN 09/23/20 05/08/21 History (Tylenol) atorvastatin 10 mg tablet (Lipitor) 10 mg PO HS 09/23/20 05/08/21 History calcium carbonate 500 mg calcium 1,000 mg PO Q8 PRN 09/23/20 05/08/21 History (1,250 mg) tablet insulin human U-100 NPH-regulr 10 unit SUBCUT BID 09/23/20 05/08/21 History 70-30 mix 100 unit/mL subcutaneous susp (Humulin 70/30 U-100 Insulin) levothyroxine 75 mcg tablet 75 mcg PO DAILYBB 09/23/20 05/08/21 History loratadine 5 mg chewable tablet 5 mg PO DAILY 09/23/20 05/08/21 History melatonin 5 mg tablet 10 mg PO HS PRN 09/23/20 05/08/21 History menthol 0.44 %-zinc oxide 20.6 % 1 applic TOPICAL QS 09/23/20 05/08/21 History topical ointment (Calmoseptine) montelukast 10 mg tablet 10 mg PO DAILY 09/23/20 05/08/21 History multivitamin with minerals 1 tab PO DAILY 09/23/20 05/08/21 History pantoprazole 40 mg tablet,delayed 40 mg PO DAILY 09/23/20 05/08/21 History release torsemide 20 mg tablet 80 mg PO .SUTUTHSA 09/23/20 05/08/21 History bisacodyl 10 mg rectal suppository 10 mg NE DAILY PRN 04/08/21 05/08/21 History (Dulcolax (bisacodyl)) thiamine HCl (vitamin B1) 100 mg 100 mg PO QAM #30 tab 04/24/21 05/08/21 Rx tablet (Vitamin B-1) insulin aspart U-100 100 unit/mL 0 sliding scale dose SUBCUT 05/08/21 05/08/21 History subcutaneous solution (Novolog .SLIDING SCALE U-100 Insulin aspart) metoprolol succinate 25 mg 37.5 mg PO DAILY 05/08/21 05/08/21 History tablet,extended release 24 hr morphine concentrate 100 mg/5 mL 5 - 10 mg PO Q2H PRN 05/08/21 05/08/21 History (20 mg/mL) oral solution Personal History Beliefs That Will Affect Care: None Patient History Medical History Acute on chronic systolic CHF (congestive heart failure) Anemia Breast cancer s/p radiation CAD (coronary artery disease) mild, non-obstructive per 06/2018 cardiac cath Cardiorenal syndrome Chronic back pain Diabetes mellitus type 2, insulin dependent Dysphagia ESRD (end stage renal disease) on dialysis GERD (gastroesophageal reflux disease) controlled Hemothorax after procedure History of DVT (deep vein thrombosis) LUE Hyperlipidemia Hypothyroidism LBBB (left bundle branch block) chronic dating back to at least 2007 per prior [facility] EKG's Morbid obesity Nausea and vomiting Non-ischemic cardiomyopathy Osteoarthritis Palliative care encounter Peripheral neuropathy Pleural effusion Pleural effusion on right Systolic and diastolic CHF w/reduced LV function, NYHA class 4 Volume overload Surgical History AVF (arteriovenous fistula) LEFT ARM History of appendectomy History of cardiac cath 06/2018: Mild, non-obstructive CAD/no culprit lesions identified to explain symptoms or abnormal stress test History of cataract surgery Hx of lumpectomy Right breast S/P aneurysm repair 05/[address] Deutsch Family History Father Diabetes Other Allergies Heart disease Social History Smoking Status: Unknown if ever smoked Tobacco Type: Cigarettes Second Hand Exposure: No; Hx Alcohol Use: No Hx Substance Use: No Preferred Language: Bengali Communication Ability: [place]ESA [place]ANDE Visual Impairment: No Limitations Hearing Ability: Hard of Hearing Family Dentist Required: No Beliefs That Will Affect Care: None marital status: Current Living Situation: Alf Current Living Situation Comment: At [facility] How many Children do You have: 1 Other Information That Helps Us Care for You: No Feels Safe at Home: Yes Safety Concerns: Feels Safe At This Time Assistive Devices: Oxygen - Continuous Physical Exam Psychiatric: Orientation: alert and oriented to person Apperance: appropriately groomed Eye Contact: + fair eye contact Motor Behavior: no abnormal motor movements Speech: normal rate/rhythm/volume of speech Affect: + blunted affect Thought Process: + concrete thought process Suic idal Thoughts: denies suicidal thoughts Homicidal Thoughts: denies homicidal thoughts Hallucinations: no auditory hallucinations and no visual hallucinations Cognition: language grossly intact; + attention not intact Insight: + poor insight Judgement: + poor judgement Vital Signs (Past 24 Hours): Last Vital Signs Temp 36.7 C 05/14/21 12:00 Pulse 89 05/14/21 12:36 Resp 20 05/14/21 12:00 BP 131/55 L 05/14/21 12:00 Pulse Ox 96 05/14/21 12:00 Review of Systems Unobtainable due to cognitive status Results & Data ([facility]) Laboratory Results 05/14/21 05/14/21 05/14/21 Range/Units 11:39 07:48 07:43 WBC 4.72 L (4.8-10.8) K/uL RBC 3.24 L (4.2-5.4) M/uL Hgb 11.4 L (12.0-16.0) g/dL Hct 35.4 L (37-47) % MCV 109.3 H (80-100) fL MCH 35.2 H (25-34) pg MCHC 32.2 (32-36) g/dL RDW Std Deviation 65.7 H (36.4-46.3) fL RDW Coeff of Archana 16.6 H (11.5-14.5) % Plt Count 93 L (130-400) K/uL MPV 10.3 (7.4-10.4) fL Platelet Estimate Decreased L (Normal) POC Glucose 108 H 107 H (70-99) mg/dl 05/13/21 05/13/21 Range/Units 20:51 16:06 WBC (4.8-10.8) K/uL RBC (4.2-5.4) M/uL Hgb (12.0-16.0) g/dL Hct (37-47) % MCV (80-100) fL MCH (25-34) pg MCHC (32-36) g/dL RDW Std Deviation (36.4-46.3) fL RDW Coeff of Archana (11.5-14.5) % Plt Count (130-400) K/uL MPV (7.4-10.4) fL Platelet Estimate (Normal) POC Glucose 118 H 90 (70-99) mg/dl Medications Administered Acetaminophen (Acetaminophen 325 Mg Tab) 650 mg PO Q4H PRN PRN Reason: Moderate Pain Stop: 06/07/21 13:53 Last Admin: 05/12/21 21:06 Dose: 650 mg Documented by: [id number] Admin: 05/11/21 20:51 Dose: 650 mg Documented by: [id number] Admin: 05/10/21 20:39 Dose: 650 mg Documented by: [id number] Admin: 05/10/21 13:33 Dose: 650 mg Documented by: [id number] Amiodarone HCl (Amiodarone 200 Mg Tab) 200 mg PO BIDM [facility] Stop: 06/12/21 16:59 Last Admin: 05/14/21 11:52 Dose: 200 mg Documented by: [id number] Admin: 05/14/21 08:54 Dose: Not Given Documented by: [id number] Admin: 05/13/21 17:43 Dose: Not Given Documented by: [id number] Dextrose (Dextrose 50% 50 Ml Syringe) 25 - 50 ml IV UD PRN; Protocol PRN Reason: Hypoglycemia Protocol Stop: 06/08/21 10:29 Last Admin: 05/09/21 10:28 Dose: 50 ml Documented by: [id number] Heparin Sodium (Porcine) (Heparin Sod 5,000 Unit/0.5 Ml Vial) 5,000 units SQ Q12 YULIET Stop: 06/07/21 20:59 Last Admin: 05/12/21 08:58 Dose: 5,000 units Documented by: [id number] Admin: 05/11/21 20:51 Dose: 5,000 units Documented by: [id number] Admin: 05/11/21 09:20 Dose: 5,000 units Documented by: [id number] Admin: 05/10/21 20:40 Dose: 5,000 units Documented by: [id number] Admin: 05/10/21 09:42 Dose: 5,000 units Documented by: [id number] Admin: 05/09/21 20:06 Dose: 5,000 units Documented by: [id number] Admin: 05/09/21 08:13 Dose: 5,000 units Documented by: [id number] Admin: 05/08/21 21:08 Dose: 5,000 units Documented by: [id number] Hydromorphone HCl (Hydromorphone Inj 0.5 Mg/0.5 Ml Syr) 0.5 mg IV Q4H PRN PRN Reason: Pain Stop: 05/22/21 17:31 Last Admin: 05/09/21 05:15 Dose: 0.5 mg Documented by: [id number] Admin: 05/08/21 23:51 Dose: 0.5 mg Documented by: [id number] Insulin Aspart (Insulin Aspart 100 Units/Ml Vial) 0 units SC ACHS YULIET Stop: 06/09/21 11:29 Last Admin: 05/14/21 11:55 Dose: Not Given Documented by: [id number] Admin: 05/14/21 08:51 Dose: Not Given Documented by: [id number] Admin: 05/13/21 21:26 Dose: Not Given Documented by: [id number] Cosigned by: [id number] Admin: 05/13/21 16:53 Dose: Not Given Documented by: [id number] Cosigned by: [id number] Admin: 05/13/21 12:53 Dose: Not Given Documented by: [id number] Cosigned by: [id number] Admin: 05/13/21 09:09 Dose: Not Given Documented by: [id number] Cosigned by: [id number] Admin: 05/12/21 20:45 Dose: Not Given Documented by: [id number] Admin: 05/12/21 16:49 Dose: 2 units Documented by: [id number] Cosigned by: [id number] Admin: 05/12/21 13:19 Dose: 1 units Documented by: [id number] Cosigned by: [id number] Admin: 05/12/21 08:56 Dose: Not Given Documented by: [id number] Admin: 05/11/21 20:33 Dose: Not Given Documented by: [id number] Admin: 05/11/21 17:05 Dose: Not Given Documented by: [id number] Admin: 05/11/21 11:57 Dose: Not Given Documented by: [id number] Admin: 05/11/21 09:22 Dose: 3 units Documented by: [id number] Cosigned by: [id number] Admin: 05/10/21 20:39 Dose: Not Given Documented by: [id number] Admin: 05/10/21 17:09 Dose: 1 units Documented by: [id number] Cosigned by: [id number] Admin: 05/10/21 12:16 Dose: 5 units Documented by: [id number] Cosigned by: [id number] Melatonin (Melatonin 3 Mg Tab) 3 mg PO HS PRN PRN Reason: Sleep Stop: 06/08/21 23:52 Last Admin: 05/10/21 00:22 Dose: 3 mg Documented by: [id number] Miscellaneous (Carbohydrates For Hypoglycemia ) 15 - 30 gm PO UD PRN PRN Reason: Hypoglycemia Treatment Stop: 06/08/21 10:29 Last Admin: 05/12/21 07:52 Dose: 15 gm Documented by: [id number] Admin: 05/12/21 07:31 Dose: 30 gm Documented by: [id number] Admin: 05/11/21 16:48 Dose: 15 gm Documented by: [id number] Miscellaneous (Check Scopolamine Patch Placement) 1 ea N/A QS [facility] Stop: 06/10/21 15:59 Last Admin: 05/14/21 08:52 Dose: 1 ea Documented by: [id number] Admin: 05/14/21 00:00 Dose: 1 ea Documented by: [id number] Admin: 05/13/21 16:53 Dose: 1 ea Documented by: [id number] Admin: 05/13/21 08:22 Dose: 1 ea Documented by: [id number] Admin: 05/12/21 22:55 Dose: 1 ea Documented by: [id number] Admin: 05/12/21 16:49 Dose: 1 ea Documented by: [id number] Admin: 05/12/21 10:22 Dose: Not Given Documented by: [id number] Admin: 05/11/21 22:58 Dose: 1 ea Documented by: [id number] Admin: 05/11/21 16:39 Dose: 1 ea Documented by: [id number] Miscellaneous (Remove Transderm-Scop Patch) 1 ea N/A Q72H YULIET Stop: 06/11/21 09:13 Last Admin: 05/12/21 10:22 Dose: Not Given Documented by: [id number] Olanzapine (Olanzapine 10 Mg/2.1 Ml Sdv) 2.5 mg IM Q4H PRN PRN Reason: Anxiety/Agitation Stop: 06/08/21 01:38 Last Admin: 05/09/21 02:02 Dose: 2.5 mg Documented by: [id number] Scopolamine (Scopolamine 1 Mg Tdsy) 1 mg TD Q72H YULIET Stop: 06/11/21 09:14 Last Admin: 05/12/21 10:23 Dose: 1 mg Documented by: [id number] Coding Level of Care Code 27638 U Intl Hosp Care Lvl 2 Diagnoses Altered mental status R41.82 Altered mental status type: unspecified
--- NOTE | 2021-05-14 14:11 | Palliative Care Progress Note ---
Date of Service May 14, 2021 Assessment & Plan (1) Palliative care encounter: Plan: Silva was awake when I saw her today; however, earlier had increased agitation and delirium which appears to be resolved and attribute this to her recent Amiodarone infusion for onset of rapid Afib. Less likely to be related to Scopolomine patch. Patient told me when I was talking to her that she wanted to go home and just be comfortable. I asked her to elaborate on that. I asked her if she wanted to continue hemodialysis, knowing that would shorten her life expectancy significantly and she said she was ok stopping hemodialysis. I called her son, Anthony and relayed this information. He has been able to be with her for visitation and has been discussing this with her as well. We discussed hospice services and what that entails and how it can be of benefit. We did disc uss the discontinuation of dialysis and her shortened life expectancy as toxins accumulate and are not dialyzed out. He was [place] way to the airport [place] someone off, but after discussion stated that he would like to pursue hospice when she is stable for return to [facility]. I discussed with Dr. Stewart from Nephrology and since the goal is overall hospice focused care, no real indicator for another dialysis session tomorrow. Dr. Zheng and case management aware. Hospice referral script provided by [facility] [employer] Dr. Ren to case management. We discussed that we likely will be able to have Silva return to [facility], but reflecting on the option of her remaining at [facility] should she decline in the future with a focus on comfort measures at that time with no future hospitalizations. (2) Bradycardia: Plan: Eval by Cardiology. No additional bradycardia episodes at this time. Not a pacemaker candidate. (3) Dysphagia: Plan: Intermittent coughing with swallowing medications. Eventual discontinuation of medications. transition overall to hospice care. no artificial nutrition/hydration. (4) Pleural effusion: Plan: chronic. Per Pulmonary, no added benefit in an additional thoracentesis. Currently on 4LNC SpO2 95% Audible secretions minimized with Scopolomine patch; however, if delirium continues, could consider discontinuation. Admission and Anticipated Discharge Date Admission Date: May 08, 2021 Subjective The patient was seen and examined at her bedside. She was having behavioral disturbance with some delirium, seems to have resolved to her baseline mental status. Underwent HD today. Goals conversation with son Anthony. See AP Review of Systems Review of Systems: [place] [facility] Assessment Scale: Pain: 0/3 SOB: 2/3 Lack of Appetite: 1/3 Anxiety: 0/3 Palliative Performance Scale: 30% Physical Exam Constitutional: + obese and + frail appearing ENMT: Mouth: + dry oral mucous membranes Respiratory: + labored breathing and + uses accessory muscles Auscultation: + diminished lung sounds Cardiovascular: Rate/Rhythm: regular rate and regular rhythm Heart Sounds: normal S1 and normal S2 Psychiatric: Orientation: alert and oriented x 3 Insight: + limited insight Results & Data ([place]) Vital Signs (Past 12 Hours) Vital Signs Temp Pulse Pulse Resp BP Pulse Ox Pulse Ox 05/14/21 12:36 89 05/14/21 12:00 36.7 C 81 20 131/55 L 96 05/14/21 08:00 36.8 C 79 20 119/65 95 05/14/21 03:29 36.4 C L 92 H 18 107/62 97 97 PG Care Time/CCT Total # of Minutes Spent Total Time Spent with Patient: Total time spent is greater than 50% in coordination of care (as documented) at patient's floor/unit and/or counseling patient: 45 minutes Coding Level of Care Code 71070 Subseq Hosp Care Lvl 3 Diagnoses Palliative care encounter Z51.5 Bradycardia R00.1 Dysphagia R13.10 Pleural effusion J90 Time Spent (min) 45
--- NOTE | 2021-05-14 19:24 | Hospitalist Progress Note ---
Date of Service May 14, 2021 Assessment & Plan (1) Altered mental status: Plan: Metabolic encephalopathy Present on admission with lethargy and mental status while on dialysis likely related to hypoxia CT head showed no acute intracranial findings. No change in appearance of the brain. repeat CT head: no acute process still confused, but improved compared to yesterday no focus of infection at this time (2) ESRD (end stage renal disease): Plan: HD on MWF Nephrology on board on HD MWF (3) Acute on chronic systolic CHF (congestive heart failure): Plan: Hx of such, LVEF of 25 to 29%, Hx of LBBB, hypokinetic encinas, dilated IVC and elevated atrial pressure, pulmonary hypertension is highly suspected, severe TR Cardiology on board Continue HD on MWF Continue 2L nasal cannula appears to be euvolemic torsemide held for low BP (4) Acute respiratory failure with hypoxia: Plan: per Dr. Bhagat's notes: Large Pleural effusion CT chest showed interval increase in large loculated right pleural effusion with compressive atelectasis/collapse again seen involving the right middle lobe and right lower lobe. Case discussed with pulmonology about thoracentesis Pulmonology does not recommend any thoracentesis procedure or pleural catheter placement at this time due to possible entrapped lung Last Thoracentesis back in July patient had developed hemothorax after the thoracentesis, chest tube was placed and was transferred to [place] [facility] review the last few CAT scan showed no significant increase in the right loculated pleural effusion Continue oxygen supplement Palliative care on board for goals of care (5) Atrial flutter: Plan: Brief episode of Atrial flutter on tele monitor Asymptomatic now on SR Amiodarone PO BID No anticoagulant due to potential risk of bleeding continue monitor in tele (6) Hyperlipidemia: Plan: - Cont atorvastatin (7) Bradycardia: Plan: Atropine x1 was given in route by EMS on the way to the hospital from dialysis Cardiology consulted d/c beta walter (8) Diabetes mellitus type 2, insulin dependent: Plan: ISS with Accu-Cheks ACHS Continue monitor blood sugar a1c 6.4 (9) Peripheral neuropathy: Plan: -History of such secondary to diabetes - gabapentin was discontinued during the last hospital stay (10) GERD (gastroesophageal reflux disease): Plan: - hx of usch, continue omeprazole (11) Hypothyroidism: Plan: TSH is elevated at 8.04 On levothyroxine 75 mcg repeat TSH in 4 weeks DVT ppx: teds, scds, heparin subq CODE: DNR/DNI Dispo: Palliative care on board for goal of care discussed with patient's son Anthony- decision was made to transition patient to hospice Admission and Anticipated Discharge Date Admission Date: May 08, 2021 Subjective ff up for encephalopathy, ESRD, etc. Seen resting in bed, sleeping but easily awakened Awake and alert, calm and cooperative, but still very confused Smiling No chest pain, shortness of breath, headache, abdominal pain No other pain reported No other symptoms Review of Systems Review of Systems: all noted and negative except for above Physical Exam Physical Exam: General- oriented x to son, not in distress, speaks in phrases with no effort or accessory muscle use Eyes- anicteric Neck- no JVD Lungs- clear breath sounds bilaterally Heart- normal rate, regular rhythm; no murmurs Abdomen- normal bowel sounds, nondistended, soft, nontender Extremities- no pretibial edema, no calf tenderness Neuro- alert, oriented x to son; pleasantly confused confused, no gross focal neurologic deficits Skin- warm & dry Results & Data Results & Data ([facility]) Vital Signs (Past 12 Hours) Vital Signs Temp Pulse Pulse Resp BP Pulse Ox 05/14/21 17:27 37.0 C 74 20 124/60 95 05/14/21 12:36 89 05/14/21 12:00 36.7 C 81 20 131/55 L 96 05/14/21 08:00 36.8 C 79 20 119/65 95 all noted and reviewed including below (1) Hyperlipidemia Hyperlipidemia type: unspecified Qualified Code(s): E78.5 - Hyperlipidemia, unspecified (2) Hypothyroidism Hypothyroidism type: acquired Qualified Code(s): E03.9 - Hypothyroidism, unspecified (3) Altered mental status Altered mental status type: transient alteration of awareness Qualified Code(s): R40.4 - Transient alteration of awareness (4) GERD (gastroesophageal reflux disease) Esophagitis presence: without esophagitis Qualified Code(s): K21.9 - Gastro- esophageal reflux disease without esophagitis
[2021-05-15] MEDS: CHECK SCOPOLAMINE PATCH PLACEMENT SCH ×2 (00:30→08:10)
[2021-05-15] MEDS: AMIODARONE 200 MG TAB PO SCH (08:08)
[2021-05-15] MEDS: SCOPOLAMINE 1 MG TDSY TD SCH (08:09)
[2021-05-15] MEDS: INSULIN ASPART 100 UNITS/ML VIAL SC SCH ×2 (08:12→11:55)
--- NOTE | 2021-05-15 10:09 | Cardiology Progress Note ---
Date of Service May 15, 2021 Assessment & Plan (1) Atrial flutter: (2) Pleural effusion due to CHF (congestive heart failure): (3) Acute on chronic systolic CHF (congestive heart failure): (4) End stage renal disease on dialysis: (5) Bradycardia: (6) Hypotension: Plan: Complex 80-year-old female with end-stage renal disease on hemodialysis, chronic systolic failure, nonischemic cardiomyopathy, and chronic/recurrent right pleural effusion. Paroxysmal atrial flutter with rapid ventricular response recorded 05/12/2021 with subsequent conversion to sinus rhythm. Able to take oral medication today. Pulmonary medicine input appreciated. Patient is not a candidate for repeat thoracentesis at this time. Patient is planning transition to hospice. Cardiology will sign off. Please call with any further concerns/questions. Admission and Anticipated Discharge Date Admission Date: May 08, 2021 Subjective Patient seen examined the bedside. More alert today. Denies chest pain or shortness of breath. Palliative care notes reviewed. Patient planning one more dialysis treatment done to return to the group home on hospice. Telemetry reveals sinus rhythm. No recurrent atrial flutter. Review of Systems Review of Systems: All systems reviewed & are unremarkable except as noted in Subjective Physical Exam Constitutional: + obese Respiratory: no respiratory distress, no labored breathing and no retractions Auscultation: + diminished lung sounds (Right base and lower lung field) and + rhonchi (Coarse breath sounds on the right side); no crackles, no rales and no wheezes Cardiovascular: Rate/Rhythm: regular rate and regular rhythm Heart Sounds: normal S1 and normal S2; no murmur Vessels: no JVD and no carotid bruit Gastrointestinal (Abdomen): Inspection/Auscultation: abdomen normal to inspection and normal bowel sounds; abdomen not distended Percussion/Palpation: abdomen soft; abdomen nontender, no guarding and abdomen not rigid Neurologic: CN's II-XI intact bilaterally and moves all extremities; no focal motor deficits Results & Data ([facility]) Vital Signs (Past 12 Hours) Vital Signs Temp Pulse Pulse Resp BP Pulse Ox 05/15/21 07:23 36.6 C 76 20 112/72 94 05/15/21 04:25 36.8 C 87 19 133/65 99 05/15/21 00:12 36.5 C 87 18 121/71 98 05/14/21 23:36 79 (1) Hypotension Hypotension type: unspecified hypotension type Qualified Code(s): I95.9 - Hypotension, unspecified
--- NOTE | 2021-05-15 14:18 | Hospitalist Progress Note ---
Date of Service May 15, 2021 Assessment & Plan (1) Altered mental status: Plan: Metabolic encephalopathy Present on admission with lethargy and mental status while on dialysis likely related to hypoxia CT head showed no acute intracranial findings. No change in appearance of the brain. repeat CT head: no acute process More awake and alert, comfortable, but still confused no focus of infection at this time (2) ESRD (end stage renal disease): Plan: HD on MWF Nephrology on board on HD MWF Discussed with Dr. Stewart, will hold HD now as patient is transitioning to hospice care (3) Acute on chronic systolic CHF (congestive heart failure): Plan: Hx of such, LVEF of 25 to 29%, Hx of LBBB, hypokinetic encinas, dilated IVC and elevated atrial pressure, pulmonary hypertension is highly suspected, severe TR Cardiology on board Continue HD on MWF Continue 2L nasal cannula appears to be euvolemic torsemide held for low BP (4) Acute respiratory failure with hypoxia: Plan: per Dr. Bhagat's notes: Large Pleural effusion CT chest showed interval increase in large loculated right pleural effusion with compressive atelectasis/collapse again seen involving the right middle lobe and right lower lobe. Case discussed with pulmonology about thoracentesis Pulmonology does not recommend any thoracentesis procedure or pleural catheter placement at this time due to possible entrapped lung Last Thoracentesis back in July patient had developed hemothorax after the thoracentesis, chest tube was placed and was transferred to [place] [facility] review the last few CAT scan showed no significant increase in the right loculated pleural effusion Continue oxygen supplement Palliative care on board for goals of care (5) Atrial flutter: Plan: Brief episode of Atrial flutter on tele monitor Asymptomatic now on SR Amiodarone PO BID No anticoagulant due to potential risk of bleeding continue monitor in tele (6) Hyperlipidemia: Plan: - Cont atorvastatin (7) Bradycardia: Plan: Atropine x1 was given in route by EMS on the way to the hospital from dialysis Cardiology consulted d/c beta walter (8) Diabetes mellitus type 2, insulin dependent: Plan: ISS with Accu-Cheks ACHS Continue monitor blood sugar a1c 6.4 (9) Peripheral neuropathy: Plan: -History of such secondary to diabetes - gabapentin was discontinued during the last hospital stay (10) GERD (gastroesophageal reflux disease): Plan: - hx of usch, continue omeprazole (11) Hypothyroidism: Plan: TSH is elevated at 8.04 On levothyroxine 75 mcg repeat TSH in 4 weeks DVT ppx: teds, scds, heparin subq CODE: DNR/DNI Dispo: Palliative care on board for goal of care discussed with patient's son Anthony- decision was made to transition patient to hospice Discharge to senior living facility today Patient to be followed by hospice care services Admission and Anticipated Discharge Date Admission Date: May 08, 2021 Subjective Follow-up for encephalopathy, ESRD, etc. Seen sitting up in bed, comfortable, on 2 L of oxygen via nasal cannula Not in distress Very pleasant, more awake and alert, still pleasantly confused Denies shortness of breath, chest pain, palpitations, dizziness, headache, nausea vomiting Requesting for more ice cream No other issues per industrial maintenance tech of Systems Review of Systems: all noted and negative except for above Physical Exam Physical Exam: General- oriented x 1, not in distress, speaks in sentences with no effort or accessory muscle use Eyes- anicteric Neck- no JVD Lungs- clear breath sounds bilaterally, no crackles, no wheezing Heart- normal rate, regular rhythm; no murmurs Abdomen- normal bowel sounds, nondistended, soft, nontender Extremities- no pretibial edema, no calf tenderness Neuro- alert, oriented x 1; no new gross focal neurologic deficits Skin- warm & dry Results & Data Results & Data ([facility]) Vital Signs (Past 12 Hours) Vital Signs Temp Pulse Pulse Resp BP Pulse Ox 05/15/21 12:13 36.5 C 90 17 130/73 94 05/15/21 09:00 76 05/15/21 07:23 36.6 C 76 20 112/72 94 05/15/21 04:25 36.8 C 87 19 133/65 99 all noted and reviewed including below (1) Altered mental status Altered mental status type: transient alteration of awareness Qualified Code(s): R40.4 - Transient alteration of awareness (2) Hyperlipidemia Hyperlipidemia type: unspecified Qualified Code(s): E78.5 - Hyperlipidemia, unspecified (3) GERD (gastroesophageal reflux disease) Esophagitis presence: without esophagitis Qualified Code(s): K21.9 - Gastro- esophageal reflux disease without esophagitis (4) Hypothyroidism Hypothyroidism type: acquired Qualified Code(s): E03.9 - Hypothyroidism, unspecified
--- NOTE | 2021-05-15 14:27 | Discharge Summary ---
Date of Service May 15, 2021 Admission HPI Per Admitting Provider This is a 80-year-old female with PMHx of ESRD on HD, nonobstructive CAD, systolic and diastolic CHF, afib not anticoagulated, pulmonary HTN, chronic respiratory failure with hypoxia, HLD, peripheral neuropathy, hx of breast cancer s/p partial mastectomy, hypothryoidism, GERD, osteoarthritis, anemia who presents via EMS to the ER due to lethargy while at hemodialysis this morning. She was noted by staff at their facility that she was not quite herself, bradycardic however this is not a new finding, and was sent over via EMS. In route here she was given dose of atropine IV for bradycardia, however did not se em to significantly improve heart rate initially, currently her pulse is 67. Upon arrival she was treated as if she was hyperkalemic due to the bradycardia so was given doses of calcium gluconate, sodium bicarb and given NSS 500 mL. Lab results returned afterwards and noted potassium was 3.6. Because of her respiratory distress she was given a dose of fentanyl 50 mcg x 2 and morphine 4 mg IV and placed on BiPAP at 60% FiO2. Palliative was consulted for the patient's care as she has had several discussions with them as an outpatient regarding end-of-life and goals of care, and have been trending towards comfort care measures. Palliative medicine had contacted her son and at this time he would like the patient to be maintained on BiPAP. He has not seen his mother in the hospital today, and unable to come in. Pt has not had her routinely scheduled dialysis session this morning. She is unable to participate in any part of the exam due to lethargy and being on BiPAP. She does awaken to verbal and painful stimuli. She does not follow commands at bedside. Admission Exam (Per Admitting) Constitutional General: Awakens to verbal and painful stimuli, unable to participate in conversation or ROS, appears chronically ill, obese Head: Normocephalic, atraumatic ENT: PERRL, EOMI, pharynx is not examined due to being on BiPAP Chest: Diminished breath sounds throughout, on BiPAP with 60% FiO2 Cardiac: Regular rate and rhythm, heart rate 100 at bedside, + faint systolic murmur, no JVD, normal peripheral pulses, good capillary refill Abdominal: NABS x 4 quadrants, soft, obese, nondistended, nontender to palpation, no rebound or guarding Extremities: Normal inspection, no peripheral edema or erythema, calfs nontender to palpation Psych: Normal mood and affect Neuro: Awakens to verbal and painful stimuli, does not participate in conversation, does not follow command, no gross motor deficits, speech not assessed Discharge Data Consultations 05/08/21 11:15 ED Decision to Admit Stat 05/08/21 11:52 Consult Palliative Care Stat 05/08/21 12:26 Consult Palliative Care Routine 05/08/21 12:31 Consult Nephrology Routine 05/08/21 13:54 Consult Cardiology Stat 05/14/21 08:57 Consult Psychiatry Routine Hospital Course (1) Altered mental status: Metabolic encephalopathy Present on admission with lethargy and mental status while on dialysis likely related to hypoxia CT head showed no acute intracranial findings. No change in appearance of the brain. repeat CT head: no acute process More awake and alert, comfortable, but still confused no focus of infection at this time (2) ESRD (end stage renal disease): HD on MWF Nephrology on board on HD MWF Discussed with Dr. Stewart, will hold HD now as patient is transitioning to hospice care (3) Acute on chronic systolic CHF (congestive heart failure): Hx of such, LVEF of 25 to 29%, Hx of LBBB, hypokinetic encinas, dilated IVC and elevated atrial pressure, pulmonary hypertension is highly suspected, severe TR Cardiology on board Continue HD on MWF Continue 2L nasal cannula appears to be euvolemic torsemide held for low BP (4) Acute respiratory failure with hypoxia: per Dr. Bhagat's notes: Large Pleural effusion CT chest showed interval increase in large loculated right pleural effusion with compressive atelectasis/collapse again seen involving the right middle lobe and right lower lobe. Case discussed with pulmonology about thoracentesis Pulmonology does not recommend any thoracentesis procedure or pleural catheter placement at this time due to possible entrapped lung Last Thoracentesis back in July patient had developed hemothorax after the thoracentesis, chest tube was placed and was transferred to [facility] review the last few CAT scan showed no significant increase in the right loculated pleural effusion Continue oxygen supplement Palliative care on board for goals of care (5) Atrial flutter: Brief episode of Atrial flutter on tele monitor Asymptomatic now on SR Amiodarone PO BID No anticoagulant due to potential risk of bleeding continue monitor in tele (6) Hyperlipidemia: - Cont atorvastatin (7) Bradycardia: Atropine x1 was given in route by EMS on the way to the hospital from dialysis Cardiology consulted d/c beta walter (8) Diabetes mellitus type 2, insulin dependent: ISS with Accu-Cheks ACHS Continue monitor blood sugar a1c 6.4 (9) Peripheral neuropathy: -History of such secondary to diabetes - gabapentin was discontinued during the last hospital stay (10) GERD (gastroesophageal reflux disease): - hx of usch, continue omeprazole (11) Hypothyroidism: TSH is elevated at 8.04 On levothyroxine 75 mcg repeat TSH in 4 weeks DVT ppx: teds, scds, heparin subq CODE: DNR/DNI Dispo: Palliative care on board for goal of care discussed with patient's son Anthony- decision was made to transition patient to hospice [facility] Patient to be followed by hospice care services
== END 2021-05-15 15:52 | DRG 189 ==
LOC: ED 07:46 → EDINP 12:26 → SUATTDRO 12:26 → EDINP 13:53 → 2S 05-09 03:33